=== PATIENT | female | born 1945 | race African-American/Black ===

== ENCOUNTER 2020-05-11 12:23 | Inpatient (IN) | payer OTHER ==
[2020-05-11 14:53] LABS: Absolute Lymphocytes (CBC) 4.8 K/uL (0.7-4.9); Basophils % 1.3 % (0-1.3); MPV 7.7 fL (7.6-11.3); RBC Red Blood Cell Count 2.91 M/uL (3.86-4.86)
[2020-05-11 15:13] LABS: Platelet Estimate ADEQ
[2020-05-11 15:14] LABS: Anisocytosis 1+; Basophilic Stippling 1+; Blood Morphology Comment NOTED (NOT SEEN); Hypochromasia 1+; Rouleau 2
[2020-05-11 15:42] LABS: ALT/SGPT 33 U/L (12-78); AST/SGOT 58 U/L (15-37); Albumin 2.3 g/dL (3.4-5.0); Alkaline Phosphatase 55 U/L (45-117); BUN Blood Urea Nitrogen 55 mg/dL (7-18); Bicarbonate 25 mmol/L (21-32); Bilirubin Direct < 0.1 mg/dL (0-0.2); Bilirubin Total 0.2 mg/dL (0.2-1.0); Glucose Level 92 mg/dL (74-106); Lipase 196 U/L (73-393); Potassium 4.3 mmol/L (3.5-5.1); Protein, Total 17.2 g/dL (6.4-8.2); Sodium Level 132 mmol/L (136-145)
--- NOTE | 2020-05-11 16:09 | ER ---
Nurse's Notes [facility] [place] Name: Liat Velazquez Age: 74 yrs Sex: Female : 1945 Arrival Date: 05/11/2020 Time: 12:24 Bed 26 Private MD: Diagnosis: Acute renal failure Presentation: 05/11 13:14 Chief complaint: Patient states: Sent by Dr. Rice for the CT of abdomen. Reports loss ca1 of appetite since Saturday. Loss of taste since Saturday. Denies abdominal pain, nausea, vomiting and diarrhea. Denies fever. Reports normal BM. Denies constipation. Coronavirus screen: Client denies travel out of the [place] in the last 14 days. fatigue, loss of taste or smell, loss of appetite Client presents with at least one sign or symptom that may indicate coronavirus-19. Standard/surgical mask placed on the client. Provider contacted for isolation considerations. Ebola Screen: Patient negative for fever greater than or equal to 101.5 degrees Fahrenheit, and additional compatible Ebola Virus Disease symptoms Patient denies exposure to infectious person. Patient denies travel to an Ebola-affected area in the 21 days before illness onset. No symptoms or risks identified at this time. Initial Sepsis Screen: Does the patient meet any 2 criteria? No. Patient's initial sepsis screen is negative. Does the patient have a suspected source of infection? No. Patient's initial sepsis screen is negative. Risk Assessment: Do you want to hurt yourself or someone else? Patient reports no desire to harm self or others. Onset of symptoms was May 11, 2020. 13:14 Method Of Arrival: Wheelchair ca1 13:14 Acuity: REY 3 ca1 Historical: - Allergies: 13:19 No Known Allergies; ca1 - Home Meds: 13:19 Multiple Vitamins Oral [Active]; ca1 - PMHx: 13:19 None; ca1 - PSHx: 13:19 Knee surgery; ca1 - Immunization history:: Adult Immunizations up to date. - Social history:: Smoking status: Patient denies any tobacco usage or history of. Screenin:35 Abuse screen: Denies threats or abuse. Denies injuries from another. Nutritional jl7 screening: No deficits noted. Tuberculosis screening: No symptoms or risk factors identified. Fall Risk IV access (20 points). Total Jeter Fall Scale indicates No Risk (0-24 pts). 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 ca1 14:35 General: Appears in no apparent distress. uncomfortable, Behavior is calm, cooperative, jl7 appropriate for age. Pain: Denies pain. Neuro: Level of Consciousness is awake, alert, obeys commands, Oriented to person, place, time, situation. Cardiovascular: Patient's skin is warm and dry. Respiratory: Airway is patent Respiratory effort is even, unlabored, Respiratory pattern is regular, symmetrical. GI: Reports anorexia, Patient currently denies abdominal pain, constipation, diarrhea, epigastric pain, nausea. : No signs and/or symptoms were reported regarding the genitourinary system. Derm: Skin is pink, warm \T\ dry. 15:42 Reassessment: Awaiting lab results, Irma in lab reports critical value Creatinine of jl7 10.10, ERD notified. 16:45 Reassessment: Patient appears in no apparent distress at this time. No changes from jl7 previously documented assessment. Patient and/or family updated on plan of care and expected duration. Pain level reassessed. Patient is alert, oriented x 3, equal unlabored respirations, skin warm/dry/pink. Vital Signs: 13:14 BP 156 / 87; Pulse 97; Resp 15 S; Temp 97.7(TE); Pulse Ox 100% on R/A; Weight 68.04 kg ca1 (R); Height 5 ft. 2 in. (157.48 cm) (R); 14:35 BP 176 / 98; Pulse 90; Resp 19; Pulse Ox 100% ; Pain 0/10; jl7 16:05 BP 179 / 100; Pulse 90; Resp 17; Pulse Ox 99% ; jl7 17:08 BP 188 / 98; Pulse 95; Resp 17; Pulse Ox 98% ; Pain 0/10; jl7 13:14 Body Mass Index 27.44 (68.04 kg, 157.48 cm) ca1 ED Course: 12:24 Patient arrived in ED. ds1 13:19 Triage completed. ca1 13:19 Arm band placed on right wrist. ca1 14:06 Israel Kenny MD is Attending Physician. kdr 14:13 Angela Prado RN is Primary Nurse. jl7 14:35 Patient has correct armband on for positive identification. Placed in gown. Bed in low jl7 position. Call light in reach. Side rails up X 1. Pulse ox on. NIBP on. 14:35 Initial lab(s) drawn, by me, sent to lab. Inserted saline lock: 20 gauge in right jl7 antecubital area, using aseptic technique. Blood collected. 15:18 Lipase Sent. jl7 15:18 Hepatic Function Sent. jl7 15:18 CBC with Diff Sent. jl7 15:18 Basic Metabolic Panel Sent. jl7 15:38 Lipase Sent. jl7 15:39 Basic Metabolic Panel Sent. jl7 15:39 Liver (Hepatic) Function Sent. jl7 16:09 Prince Gilbert MD is Hospitalizing Provider. kdr 16:45 No provider procedures requiring assistance completed. Patient admitted, IV remains in jl7 place. intact, No redness/swelling at site. 17:11 COVID-19 swab sent to lab. jl7 Administered Medications: No medications were administered Outcome: 16:09 Decision to Hospitalize by Provider. kdr 16:45 Discharged to home ambulatory. jl7 16:45 Condition: stable 16:45 Discharge instructions given to patient, family, Instructed on the need for admit, Demonstrated understanding of instructions. 17:32 Patient left the ED. Signatures: Israel Kenny MD MD [facility] Bernard, Enedina ds1 Clarissa De Los Santos RN RN ss Angela Prado RN RN jl7 Liz Murray RN RN ca1
--- NOTE | 2020-05-11 16:10 | EDPHYS ---
Physician Documentation [facility] Name: Liat Velazquez Age: 74 yrs Sex: Female : 1945 Arrival Date: 05/11/2020 Time: 12:24 Bed 26 Private MD: ED Physician Israel Kenny HPI: 05/12 07:29 This 74 yrs old Black Female presents to ER via Wheelchair with complaints of Sent By kdr Dr Rice. 07:29 The patient was sent to the ED by Dr. Rice since the patient had not been feeling kdr well. This included loss of appetite, and loss of sense of smell. The patient has no focal c/o except for that she is currently hungry.. Onset: The symptoms/episode began/occurred Last Saturday. Severity of symptoms: At their worst the symptoms were very mild mild in the emergency department the symptoms are unchanged. The patient has not experienced similar symptoms in the past. The patient has been recently seen by a physician: May be on Bactrim for UTI. Historical: - Allergies: 05/11 13:19 No Known Allergies; ca1 - Home Meds: 13:19 Multiple Vitamins Oral [Active]; ca1 - PMHx: 13:19 None; ca1 - PSHx: 13:19 Knee surgery; ca1 - Immunization history:: Adult Immunizations up to date. - Social history:: Smoking status: Patient denies any tobacco usage or history of. ROS: 05/12 07:29 Constitutional: Negative for fever, chills, and weight loss, Eyes: Negative for injury, kdr pain, redness, and discharge, ENT: Negative for injury, pain, and discharge, Neck: Negative for injury, pain, and swelling, Cardiovascular: Negative for chest pain, palpitations, and edema, Respiratory: Negative for shortness of breath, cough, wheezing, and pleuritic chest pain, Back: Negative for injury and pain, : Negative for injury, bleeding, discharge, and swelling, MS/Extremity: Negative for injury and deformity, Skin: Negative for injury, rash, and discoloration, Neuro: Negative for headache, weakness, numbness, tingling, and seizure activity. Psych: Negative for depression, anxiety, suicide ideation, homicidal ideation, and hallucinations, Allergy/Immunology: Negative for hives, rash, and allergies, Endocrine: Negative for neck swelling, polydipsia, polyuria, polyphagia, and marked weight changes, Hematologic/Lymphatic: Negative for swollen nodes, abnormal bleeding, and unusual bruising. Abdomen/GI: Positive for Change in appeitite, Negative for Exam: 07:29 Constitutional: This is a well developed, well nourished patient who is awake, alert, kdr and in no acute distress. Head/Face: Normocephalic, atraumatic. Eyes: Pupils equal round and reactive to light, extra-ocular motions intact. Lids and lashes normal. Conjunctiva and sclera are non-icteric and not injected. Cornea within normal limits. Periorbital areas with no swelling, redness, or edema. Neck: Trachea midline, no thyromegaly or masses palpated, and no cervical lymphadenopathy. Supple, full range of motion without nuchal rigidity, or vertebral point tenderness. No Meningismus. Chest/axilla: Normal chest wall appearance and motion. Nontender with no deformity. No lesions are appreciated. Cardiovascular: Regular rate and rhythm with a normal S1 and S2. No gallops, murmurs, or rubs. Normal PMI, no JVD. No pulse deficits. Respiratory: Lungs have equal breath sounds bilaterally, clear to auscultation and percussion. No rales, rhonchi or wheezes noted. No increased work of breathing, no retractions or nasal flaring. Abdomen/GI: Soft, non-tender, with normal bowel sounds. No distension or tympany. No guarding or rebound. No evidence of tenderness throughout. Back: No spinal tenderness. No costovertebral tenderness. Full range of motion. Skin: Warm, dry with normal turgor. Normal color with no rashes, no lesions, and no evidence of cellulitis. MS/ Extremity: Pulses equal, no cyanosis. Neurovascular intact. Full, normal range of motion. Neuro: Awake and alert, GCS 15, oriented to person, place, time, and situation. Cranial nerves II-XII grossly intact. Motor strength 5/5 in all extremities. Sensory grossly intact. Cerebellar exam normal. Normal gait. Psych: Awake, alert, with orientation to person, place and time. Behavior, mood, and affect are within normal limits. Vital Signs: 05/11 13:14 BP 156 / 87; Pulse 97; Resp 15 S; Temp 97.7(TE); Pulse Ox 100% on R/A; Weight 68.04 kg ca1 (R); Height 5 ft. 2 in. (157.48 cm) (R); 14:35 BP 176 / 98; Pulse 90; Resp 19; Pulse Ox 100% ; Pain 0/10; jl7 16:05 BP 179 / 100; Pulse 90; Resp 17; Pulse Ox 99% ; jl7 17:08 BP 188 / 98; Pulse 95; Resp 17; Pulse Ox 98% ; Pain 0/10; jl7 13:14 Body Mass Index 27.44 (68.04 kg, 157.48 cm) ca1 MDM: 16:09 Patient medically screened. kdr 05/12 07:29 Data reviewed: vital signs, nurses notes, lab test result(s), radiologic studies. kdr Counseling: I had a detailed discussion with the patient and/or guardian regarding: the historical points, exam findings, and any diagnostic results supporting the discharge/admit diagnosis, lab results, radiology results, the need for further work-up and treatment in the hospital. 05/11 14:07 Order name: Basic Metabolic Panel kdr 05/11 14:07 Order name: CBC with Diff kdr 05/11 14:07 Order name: Hepatic Function kdr 05/11 14:07 Order name: Lipase kdr 05/11 14:38 Order name: Basic Metabolic Panel; Complete Time: 15:53 EDMS 05/11 14:38 Order name: Liver (Hepatic) Function; Complete Time: 15:53 EDMS 05/11 14:07 Order name: IV Saline Lock; Complete Time: 14:34 kdr 05/11 14:07 Order name: Labs collected and sent; Complete Time: 14:34 kdr 05/11 14:38 Order name: Lipase; Complete Time: 15:53 EDMS 05/11 14:38 Order name: CBC with Automated Diff; Complete Time: 15:53 EDMS 05/11 14:57 Order name: Manual Differential; Complete Time: 15:53 EDMS 05/11 16:08 Order name: COVID-19 kdr 05/11 16:38 Order name: CT Stone Protocol la1 Administered Medications: No medications were administered Disposition: 05/11/20 16:09 Hospitalization ordered by Prince Vladimir for Inpatient Admission. Preliminary diagnosis is Acute renal failure. - Bed requested for Telemetry/MedSurg (Inpatient). - Status is Inpatient Admission. ss - Condition is Fair. - Problem is new. - Symptoms are unchanged. Signatures: Dispatcher [employer] EDPA Charleen Benavides, APOORVA RN kl Israel Kenny MD MD kdr Clarissa De Los Santos RN RN ss Acob, APOORVA Hill RN ca1 Corrections: (The following items were deleted from the chart) 05/11 15:15 14:48 Abdomen Pelvis W Con+CT.RAD.BRZ ordered. [facility] EDPA 16:55 16:09 Hospitalization Ordered by Prince Vladimir RODRIGUEZ for Inpatient Admission. Preliminary diagnosis is Acute renal failure. Bed requested for Telemetry/MedSurg (Inpatient). Status is Inpatient Admission. Condition is Fair. Problem is new. Symptoms are unchanged. kdr 17:32 16:55 05/11/2020 16:09 Hospitalization Ordered by Prince Vladimir RODRIGUEZ for Inpatient ss Admission. Preliminary diagnosis is Acute renal failure. Bed requested for Telemetry/MedSurg (Inpatient). Status is Inpatient Admission. Condition is Fair. Problem is new. Symptoms are unchanged. kl
--- NOTE | 2020-05-11 17:16 | P.HP ---
Certification for Inpatient Patient admitted to: Inpatient With expected LOS: >2 Midnights Patient will require the following post-hospital care: None Practitioner: I am a practitioner with admitting privileges, knowledge of patient current condition, hospital course, and medical plan of care. Services: Services provided to patient in accordance with Admission requirements found in Title 42 Section 412.3 of the Code of Federal Regulations Patient History Date of Service: 05/11/20 Primary Care Provider: Krystal Reason for admission: Acute renal failure History of Present Illness: 74-year-old female with no significant past medical history presents emergency department for decreased appetite, loss of taste and smell. Patient reports that she has not been feeling well recently. Patient also reports that approximately 2 weeks ago she is prescribed antibiotic for urinary tract infection, which she follow back up with the provider the prescribed as an biotic they informed her that this was not the correct antibiotic and prescribed her a 2nd antibiotic. Patient reports that at least 1 of the antibiotics was Bactrim. She is unsure of what the 2nd one was. Patient was evaluated in the emergency department and found to be in acute renal failure with a creatinine of 10. Patient has never had any underlying chronic renal disease in the past. Other renal function from previous years were all within normal limits. ED provider wishes to admit patient for further evaluation and management. When I saw the patient in the emergency department she is awake, alert, oriented x3. Patient in no distress, patient does not appear to be volume overloaded and is still urinating. Allergies unknown antibiotic Allergy (Uncoded 10/08/17 15:19) Unknown Home Medications: Aspirin 325 mg PO BID #60 tablet 08/05/17 Enoxaparin Sodium [Lovenox 30 MG INJ*] 30 mg SQ DAILY #14 syr 09/27/17 Mupirocin Oint [Bactroban 2% Ointment*] 1 appl TOP BID #1 tube 09/27/17 Vancomycin HCl in Dextrose 5 % [Vancomycin 1.25 Gram/250Ml-D5w] 1.25 gm IV Q24H #14 plast..bag 09/27/17 - Past Medical/Surgical History Diabetic: No Past Medical History: Reviewed- Non-Contributory -: sx on left broken knee cap -: Rt ankle sx Psychosocial/ Personal History: Patient lives at home with her family. - Family History Mother -: Diabetes Father -: Hypertension, GI disease, Cancer - Social History Smoking Status: Never smoker Alcohol use: No CD- Drugs: No Caffeine use: Yes Place of Residence: Home Review of Systems 10-point ROS is otherwise unremarkable General: Malaise, Other (Loss of appetite, loss of sense of smell) Physical Examination - Physical Exam General: Alert, In no apparent distress, Oriented x3 HEENT: Atraumatic, PERRLA, Mucous membr. moist/pink, EOMI, Sclerae nonicteric Neck: Supple, 2+ carotid pulse no bruit, No LAD, Without JVD or thyroid abnormality Respiratory: Clear to auscultation bilaterally, Normal air movement Cardiovascular: Regular rate/rhythm, Normal S1 S2 Gastrointestinal: Normal bowel sounds, No tenderness Musculoskeletal: No tenderness Integumentary: No rashes Neurological: Normal gait, Normal speech, Normal strength at 5/5 x4 extr, Normal tone, Normal affect Lymphatics: No axilla or inguinal lymphadenopathy - Studies Laboratory Data (last 24 hrs) 05/11/20 14:31: WBC 12.6 H, Hgb 8.0 L, Hct 24.0 L, Plt Count 197 05/11/20 14:31: Sodium 132 L, Potassium 4.3, BUN 55 H, Creatinine 10.10 H*, Glucose 92, Total Bilirubin 0.2, AST 58 H, ALT 33, Alkaline Phosphatase 55, Lipase 196 Assessment and Plan - Plan Assessment Acute renal failure suspect secondary to antibiotic use Decreased appetite, loss of sense of taste and smell Plan Acute renal failure suspect secondary to antibiotic use: Continue gentle hydration at this time. Nephrology has been consulted. I have ordered a CK levels to rule out rhabdomyolysis and renal ultrasound. Appreciate further input from nephrology. Will refrain from giving any NSAIDs or contrast studies. Decreased appetite, loss of sense of taste and smell: Will test patient for COVID. Renal diet in place. Discharge Plan: Home Plan to discharge in: 48 Hours - Advance Directives Does patient have a Living Will: Yes Does patient have a Durable POA for Healthcare: No - Code Status/Comfort Care Code Status Assessed: Yes (Patient is full code) Critical Care: No Time Spent Managing Pts Care (In Minutes): 55
[2020-05-11] MEDS ORDERED: ACETAMINOPHEN 500 MG TAB PO PRN (17:32)
[2020-05-11] MEDS ORDERED: ONDANSETRON 4 MG/2 ML VIAL IV PRN (17:32)
--- NOTE | 2020-05-11 18:12 | RAD REPORT ---
EXAM DESCRIPTION: CT - Stone Protocol - 05/11/2020 5:27 pm CLINICAL HISTORY: ARF, abdominal pain, loss of appetite COMPARISON: No comparisons TECHNIQUE: Axial [address] imaging of the abdomen and pelvis was performed without IV contrast. No IV contrast was given because of allergy, abnormal renal function, patient refusal or physician re quest. No oral contrast administered. All CT scans are performed using dose optimization technique as appropriate and may include automated exposure control or mA/KV adjustment according to patient size. FINDINGS: No suspicious findings in the lung bases. The liver, spleen and pancreas show no suspicious findings on non-contrast imaging. Gallbladder and b iliary tree are also without suspicious finding. No hydronephrosis identified. Nonobstructing calculi present, lower pole right and upper pole left. N o obstructing calculus identified. Both kidneys appear edematous. Discrete mass is not identified. No significant adrenal finding. Isodense renal masses and pyelonephritis cannot be excluded in the abse nce of IV contrast. No gross abnormality of the partially contracted urinary bladder. No uterine abno rmality. Numerous phleboliths are present. Small atrophic right ovary is seen. In the superolateral a dnexae on the left there is a 2.9 centimeter oval mass. Calcifications are seen along the periphery. This mass appears to be discrete from the adjacent external iliac artery and vein. Mass is relatively low density. This may be a chronic and/or paraovarian cyst. No remote imaging available for comparis on. No gastric dilatation or gastric wall thickening. Large and small bowel show no acute findings. The a ppendix is unremarkable. Diverticulosis is minimal. No active GI process seen. No free air, free fluid or inflammatory stranding. No mass or bulky lymphadenopathy. Patient has a small fat only umbilical hernia not seen as significant. Advanced bony degenerative changes are present. Patient has a pronounced left convex scoliotic curvat ure. There is left lateral subluxation of the L3 body. Left-sided foramen stenoses are present in the lower lumbar spine. Pathologic bone process is not identified. IMPRESSION: Both kidneys appear edematous. Isodense masses and pyelonephritis are not excluded. No h ydronephrosis or obstructing calculi identified. No acute GI process identifiable. A 2.9 centimeter superolateral left adnexal masses present suspected to be ovarian in origin. This co uld be chronic ovarian or paraovarian cyst. The presumed left ovarian origin mass may be too far superior and lateral for sonographic evaluation. Long-term significance is doubtful. This can be monitored with follow-up CT imaging in 6 months. Full assessment is limited is the absence of IV contrast.
[2020-05-11] MEDS: NA CHLORIDE 0.9% 1,000 ML IV SCH (18:43)
[2020-05-11 20:00] VITALS: BMI 25.9
--- NOTE | 2020-05-11 20:05 | RAD REPORT ---
EXAM DESCRIPTION: US - Renal Ultrasound-Complete - 05/11/2020 7:43 pm CLINICAL HISTORY: ARF COMPARISON: Stone Protocol dated 05/11/2020 FINDINGS: The right kidney measures 10.4 x 5.0 x 4.4 cm. The left kidney measures 11.1 x 5.7 x 4.1 cm. Renal cortical thickness and echogenicity are normal. No hydronephrosis or suspicious renal mass. No perinephric abnormality seen. No bladder wall thickening or mass. No intraluminal stone or mass. IMPRESSION: No hydronephrosis or suspicious renal mass. No other significant findings.
[2020-05-11] MEDS: HEPARIN 5000 UNIT/ML 1 ML VIAL SQ SCH (21:12)
[2020-05-12 04:32] LABS: Absolute Lymphocytes (CBC) 4.2 K/uL (0.7-4.9); Basophils % 0.7 % (0-1.3); Hematocrit 21.2 % (36.0-45.0); MPV 7.5 fL (7.6-11.3); RBC Red Blood Cell Count 2.57 M/uL (3.86-4.86)
[2020-05-12 04:34] LABS: Lymphocytes % 39.3 % (15.3-44.8)
[2020-05-12 04:42] LABS: Magnesium 2.1 mg/dL (1.8-2.4); Phosphorus 6.2 mg/dL (2.5-4.9); Potassium 4.5 mmol/L (3.5-5.1); Thyroid Stimulating Hormone 1.5 uIU/mL (0.360-3.740)
[2020-05-12 05:41] LABS: Urine Appearance CLOUDY; Urine Bilirubin NEGATIVE (NEG); Urine Blood 3+ (NEG); Urine Color YELLOW; Urine Glucose NEGATIVE (NEG); Urine Protein 2+ (NEG); Urine Urobilinogen 0.2 mg/dL (0.2-1.0); Urine pH 6.5 (5.0-7.0)
[2020-05-12 06:09] LABS: Urine Bacteria >50 /HPF (<20); Urine Culture Reflex Order REFLEXED
[2020-05-12] MEDS: NA CHLORIDE 0.9% 1,000 ML IV SCH ×2 (06:33→21:00)
[2020-05-12] MEDS: CEFTRIAXONE/SWI 1gm 1 GM/10 ML SYR IV SCH (07:46)
[2020-05-12] MEDS ORDERED: HYDRALAZINE HCL 20 MG/ML VIAL IV ONE (07:51)
[2020-05-12] MEDS: HEPARIN 5000 UNIT/ML 1 ML VIAL SQ SCH (07:53)
--- NOTE | 2020-05-12 08:57 | P.PN ---
Subjective Date of Service: 05/12/20 Primary Care Provider: Krystal Chief Complaint: Acute renal failure Subjective: No new changes Review of Systems Unremarkable Physical Examination - Vital Signs Temperature: 97 F Blood Pressure: 174/100 Pulse: 101 Respirations: 18 Pulse Ox (%): 96 - Physical Exam General: Alert, In no apparent distress HEENT: Atraumatic, PERRLA, EOMI Neck: Supple, JVD not distended Respiratory: Clear to auscultation bilaterally, Normal air movement Cardiovascular: Regular rate/rhythm, Normal S1 S2 Gastrointestinal: Normal bowel sounds, No tenderness Musculoskeletal: No tenderness Integumentary: No rashes Neurological: Normal speech, Normal tone, Normal affect Lymphatics: No axilla or inguinal lymphadenopathy - Studies Laboratory Data (last 24 hrs) 05/11/20 14:31: Uric Acid 11.1 H 05/11/20 14:31: WBC 12.6 H, Hgb 8.0 L, Hct 24.0 L, Plt Count 197 05/11/20 14:31: Sodium 132 L, Potassium 4.3, BUN 55 H, Creatinine 10.10 H*, Glucose 92, Total Bilirubin 0.2, AST 58 H, ALT 33, Alkaline Phosphatase 55, Lipase 196 05/11/20 14:07: WBC Cancelled, Hgb Cancelled, Hct Cancelled, Plt Count Cancelled 05/11/20 14:07: Sodium Cancelled, Potassium Cancelled, BUN Cancelled, Creatinine Cancelled, Glucose Cancelled, Total Bilirubin Cancelled, AST Cancelled, ALT Cancelled, Alkaline Phosphatase Cancelled, Lipase Cancelled Assessment & Plan Discharge Plan: Home Plan to discharge in: 72 Hours - Code Status/Comfort Care Code Status Assessed: Yes (Patient is full code) Physician Review Additional Text: Assessment Acute renal failure suspect secondary to antibiotic use Decreased appetite, loss of sense of taste and smell Plan Acute renal failure suspect secondary to antibiotic use: Continue gentle hydration at this time. Nephrology has been consulted. Renal function has not improved from yesterday. Continue to monitor closely. Appreciate further input from nephrology. P.r.n. blood pressure medications in place. Renal ultrasound, CK, uric acid, urine eosinophils have been ordered for nephrology. Decreased appetite, loss of sense of taste and smell: Will test patient for COVID. Renal diet in place. Critical Care: No Time Spent Managing Pts Care (In Minutes): 55
[2020-05-12] MEDS ORDERED: HYDRALAZINE HCL 20 MG/ML VIAL IV PRN (15:06)
--- NOTE | 2020-05-12 18:52 | CON ---
Date of Consultation: 05/12/2020 Additional Consulting Physician: Nurse practitioner, Mr. Patrice Martinez. Reason For Consultation: Elevated BUN and creatinine. History Of Present Illness: This is a pleasant 74-year-old female with negative past medical history, except recurrent UTI. According to her, the patient had last episode almost 3 weeks ago. At that time was placed on antibiotic, treated, did not improve. For that reason, was placed for another round of antibiotic of Bactrim. The patient still did not improve, started feeling weak, fatigued. For that reason, reported to the hospital. Upon arrival to the hospital, the patient found to have elevation in BUN and creatinine. Creatinine was 10.1 with GFR of 5 without any hyperkalemia, no acidosis. For that reason the patient was admitted and we have been consulted. The patient denied taking any nonsteroidal. According to her she was using only Tylenol. The patient denied taking any NSAID . No recent hospitalization. No IV contrast. The patient admits that 1 month ago had lab with her PCP, Ms. Patience Gibbs and at that time according to her, the only mention is the UTI. There is no kidney disease according to the patient. The patient denied any rash, any joint problem. Past Medical History: Recurrent UTI. Allergies: NEGATIVE. Home Medication: Negative except p.r.n. Tylenol. Current Medications In The Hospital: Include: 1. Ceftriaxone. 2. Hydralazine. 3. Zofran. 4. IV fluid. Social History: Lives with the family. Denied smoking. Denied drinking. Denied drug abuse. Past Surgical History: Includes: 1. Broken kneecap. 2. Ankle surgery. Family History: Positive for diabetes. Review of Systems: Head and Neck: No red eye. No ear pain. GI: No nausea. No vomiting. : Has dysuria. 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 Respiratory: No shortness of breath. Cardiovascular: No chest pain. Endocrine: No polydipsia. Skin: No rash. Neuro: No neuropathy. No weakness. Musculoskeletal: Generalized fatigue. Physical Examination: General: When I saw the patient, the patient is lying in bed, comfortable, not on any distress. Vital signs: Blood pressure 139/73, pulse of 93, afebrile. The patient still has good urine output of 300. Chest: Clear to auscultation. Heart: S1, S2. Regular. Abdomen: Soft, nontender. Extremities: No edema. Neurological: Alert, oriented x3. No focal. No tremor. Cardiovascular: No carotid bruit. No renal bruit. Laboratory Data: Sodium 133, potassium 4.5, bicarb 22, BUN 57, creatinine 10.7, GFR of 4, calcium of 8, phosphorus 6.2, magnesium 2.1. PTH is still pending. Urinalysis; PC ratio is 5 g, RBC of 10, WBC of 10.6, H and H 7.2/21.2, platelet 169. Renal ultrasound; normal size kidney, no hydronephrosis 10.4/11.1. Assessment And Plan: 1. Acute kidney injury, unknown etiology. Nephrotic range of proteinuria with normal size kidney with hematuria. The patient mostly had possible of nephritis given the possibility of focal segmental glomerulosclerosis. Given that the patient does not have any clear insult, no previous history, I am going to go ahead and proceed with the kidney biopsy. I had long discussion with the patient and her family over the phone regarding the need to do kidney biopsy. The patient and family want to discuss it and then make decision. We will go ahead and arrange if family agreed for the biopsy. 2. The patient is going to need to initiate renal replacement therapy. I had a long discussion with the patient and family regarding that. They still not decided. Again, it is needed, but it is not urgently needed, so the priority is to take care of the kidney biopsy and we will follow up. I directed to hold any heparin. The patient is not on any nonsteroidal, no aspirin. Her BUN is not elevated. The patient is not oliguric. I do not see the need to give DDAVP before the biopsy. 3. Hypertension, controlled, optimal. We will monitor the patient. 4. Nephritis, doubt to be acute interstitial nephritis given the nephrotic range of proteinuria. Anyhow, we will send for urine eosinophil. 5. With the presence of anemia and renal failure to rule out any intravascular hemolysis. I am going to go ahead and send for LDH and haptoglobin. 6. Anemia with the presence of acute kidney injury. Hemolysis needs to be ruled out. Iron deficiency anemia needed to be ruled out. We will send for haptoglubin , SPEP and LDH and iron study. We will follow up. 7. Recurrent urinary tract infection, obstructive uropathy has been ruled out. We will follow up culture. Keep holding Bactrim for the time being. Time spent 65 minutes. TOMASZ Voice ID: [id number] Report ID: [id number] MTDQuirino
[2020-05-12] MEDS: METOPROLOL TAR 25 MG TAB PO SCH (22:41)
[2020-05-13] MEDS: HYDRALAZINE HCL 20 MG/ML VIAL IV PRN ×2 (01:46→13:32)
[2020-05-13 05:15] LABS: Protime INR 1.15
[2020-05-13 05:51] LABS: BUN Blood Urea Nitrogen 59 mg/dL (7-18); Bicarbonate 19 mmol/L (21-32); Creatine Phosphokinase 62 U/L (26-192); Ferritin 863.5 ng/mL (8-388); Folic Acid, (Folate) > 20.0 ng/mL (3.1-17.5); Glucose Level 97 mg/dL (74-106); Magnesium 2.2 mg/dL (1.8-2.4); Phosphorus 6.2 mg/dL (2.5-4.9); Potassium 4.1 mmol/L (3.5-5.1); Sodium Level 135 mmol/L (136-145); Transferrin 121 mg/dL (200-360)
[2020-05-13 06:34] LABS: Absolute Lymphocytes (CBC) 3.7 K/uL (0.7-4.9); Basophils % 0.7 % (0-1.3); Hematocrit 21.8 % (36.0-45.0); Lymphocytes % 39.2 % (15.3-44.8); MPV 7.6 fL (7.6-11.3); RBC Red Blood Cell Count 2.63 M/uL (3.86-4.86)
[2020-05-13] MEDS: METOPROLOL TAR 25 MG TAB PO SCH ×2 (08:07→18:00)
[2020-05-13] MEDS: CEFTRIAXONE/SWI 1gm 1 GM/10 ML SYR IV SCH (08:07)
[2020-05-13 08:16] LABS: Rheumatoid Factor NEG (NEG)
[2020-05-13] MEDS ORDERED: CEFAZOLIN/SWI 1gm 1 GM/10 ML SYR IV SCH (08:45)
[2020-05-13] MEDS: NA CHLORIDE 0.9% 1,000 ML IV SCH (09:32)
[2020-05-13] MEDS ORDERED: MIDAZOLAM HCL 2 MG/2 ML INJ ONE (09:38)
[2020-05-13] MEDS ORDERED: FENTANYL CITR 100 MCG/2 ML ONE ×2 (09:38→10:54)
[2020-05-13] MEDS ORDERED: FLUMAZENIL 0.1 MG/ML (5 mL VIAL) IV ONE (09:39)
[2020-05-13] MEDS ORDERED: NA CHLORIDE 0.9% 500 ML ONE (09:39)
[2020-05-13] MEDS ORDERED: LIDOCAINE 1% MPF 30 ML VIAL ONE (10:40)
[2020-05-13] MEDS ORDERED: HEPARIN 5000 UNIT/ML 1 ML VIAL ONE (10:40)
[2020-05-13] MEDS ORDERED: NA CHLORIDE 0.9% 100 ML IV ONE (10:41)
[2020-05-13] MEDS ORDERED: propofoL 200 MG/20 ML VIAL IV ONE (10:54)
[2020-05-13] MEDS ORDERED: LIDOCAINE 1% MPF 5 ML VIAL ONE (10:54)
--- NOTE | 2020-05-13 11:27 | P.PN ---
Subjective Date of Service: 05/13/20 Primary Care Provider: Krystal Chief Complaint: Acute renal failure Subjective: No new changes, No C/O voiced Review of Systems Unremarkable Physical Examination - Vital Signs Temperature: 97.3 F Blood Pressure: 165/104 Pulse: 95 Respirations: 20 Pulse Ox (%): 96 - Physical Exam General: Alert, In no apparent distress HEENT: Atraumatic, PERRLA, EOMI Neck: Supple, JVD not distended Respiratory: Clear to auscultation bilaterally, Normal air movement Cardiovascular: Regular rate/rhythm, Normal S1 S2 Gastrointestinal: Normal bowel sounds, No tenderness Musculoskeletal: No tenderness Integumentary: No rashes Neurological: Normal speech, Normal tone, Normal affect Lymphatics: No axilla or inguinal lymphadenopathy - Studies Medications List Reviewed: Yes Assessment & Plan Discharge Plan: Home Plan to discharge in: 72 Hours - Code Status/Comfort Care Code Status Assessed: Yes (Patient is full code) Physician Review Additional Text: Assessment Acute renal failure suspect secondary to antibiotic use Decreased appetite, loss of sense of taste and smell Plan Acute renal failure suspect secondary to antibiotic use: Patient's renal functi on continues to decline, creatinine 11. Patient was seen by nephrology is determined patient is having nephrotic syndrome due to increase protein in the urine. Full serology has been sent, patient had renal biopsy this morning. Patient will have a tunneled dialysis catheter placed this afternoon with General Surgery. Plan we for dialysis after catheters placed. Patient remains hypertensive, metoprolol has been ordered twice daily, p.r.n. hydralazine in place. Appreciate further input from nephrology. Decreased appetite, loss of sense of taste and smell: Patient negative for Macias virus. Critical Care: No Time Spent Managing Pts Care (In Minutes): 55
[2020-05-13] MEDS ORDERED: CEFAZOLIN/SWI 1gm 1 GM/10 ML SYR ONE (11:28)
--- NOTE | 2020-05-13 11:56 | PREOPCON ---
Date of Consultation: 05/13/2020 Reason: The patient needs dialysis. History Of Present Illness: The patient is a 74-year-old female with a history of recurrent UTI who came in to the hospital with fatigue and weakness. She was found to be in acute renal failure. The patient needs dialysis and I was consulted. No fever or chills. She did have some loss of taste and smell. However, her COVID test was negative. Past Medical History: Significant for recurrent UTI. Past Surgical History: Knee surgery and ankle surgery. Allergies: NONE. Social History: The patient does not smoke or drink. Family History: Significant for diabetes. Physical Examination: Vital Signs: Stable. Afebrile. General: Awake, alert, and oriented x3. Head and Neck: No masses. Chest: Clear. Heart: S1, S2. Abdomen: Soft. Extremities: Neurovascularly intact. Neurologic: Nonfocal. Laboratory Data: White count is 9.4, H and H is 7.5 and 21.8 and platelets are 170. INR is 1.15. B UN and creatinine have gone up since admission 59 and 11.2. She is slightly acidotic. Her CO2 is 19 , potassium is 4.1. Assessment: A 74-year-old female with acute renal failure requiring dialysis. Plan: N.p.o., IV antibiotics and to the OR for Tesio catheter placement. The patient understands ri sks, benefits, and alternatives and agrees to procedure. /MODL Voice ID: [id number] Report ID: [id number]
--- NOTE | 2020-05-13 12:01 | RAD REPORT ---
EXAM DESCRIPTION: US - Biopsy Renal - 05/13/2020 10:59 am CLINICAL HISTORY: ARF Renal failure COMPARISON: No comparisons FINDINGS: Preoperative diagnosis: Renal failure. Post operative diagnosis: Same. Conscious Sedation: 45 minutes of IV conscious sedation utilizing fentanyl and midazolam. Fluoroscopy time: None Contrast used: None Estimated blood loss: Minimal Specimens:2 x 2 cm 18 gauge core specimens The left posterior flank was prepped and draped in the usual sterile fashion. 1% lidocaine was infilt rated into the subcutaneous tissues for local anesthesia. Real time ultrasound scanning of the left k idney demonstrated suitable sonographic window. Under ultrasound guidance, using a 18-gauge, 10 cm lo ng, 2 cm throw core biopsy gun, 2 specimens were obtained of the inferior pole left kidney and sent t o pathology for evaluation. There were no complications. IMPRESSION: Successful ultrasound-guided nonfocal left renal biopsy.
[2020-05-13] MEDS ORDERED: NS 0.9% VIAL 10 ML ONE (12:06)
--- NOTE | 2020-05-13 12:28 | P.OP ---
Motion Picture Director: Carmita MG Preoperative diagnosis: ARF Postoperative diagnosis: same Primary procedure: KACEY Waters, Fluoroscopy Anesthesia: MAC Estimated blood loss: min Specimen: none Findings: Normal Anatomy Complications: None Transferred to: Recovery Room Condition: Good
--- NOTE | 2020-05-13 12:54 | RAD REPORT ---
EXAM DESCRIPTION: RAD - Fluoroscopy <1 Hour - 05/13/2020 12:48 pm CLINICAL HISTORY: Venous catheter insertion. TESSIO CATH PLACEMENT COMPARISON: No comparisons FINDINGS: Fluoroscopic imaging is submitted from placement of a venous catheter. Details of the pro cedure not available. Fluoroscopy time: 0.2 minutes
--- NOTE | 2020-05-13 13:07 | RAD REPORT ---
EXAM DESCRIPTION: RAD - Chest Single View - 05/13/2020 12:59 pm CLINICAL HISTORY: S/P Tesio, vascular access catheter placement COMPARISON: Portable September 2017 TECHNIQUE: AP portable chest image was obtained 05/13/2020 12:59 pm . FINDINGS: Right jugular Tessio catheter placement with tip in the mid to distal SVC. There is no pne umothorax or procedure related complication. Interstitial markings are prominent, accentuated by port able shallow inspiration technique. Trachea is midline. No measurable joint effusion. IMPRESSION: Right jugular Tessio catheter placement in good position. No pneumothorax.
--- NOTE | 2020-05-13 22:29 | OP ---
Date of Procedure: 05/13/2020 Surgeon: Sharad Cheema MD Title Specialist: HARITHA Frederick. Preoperative Diagnosis: Acute renal failure. Postoperative Diagnosis: Acute renal failure. Procedure: Placement of right internal jugular Tesio catheter and interpretation of intraoperative f luoroscopy. Estimated Blood Loss: Minimal. Specimen: None. Findings: Normal anatomy. Anesthesia: MAC. Complications: None. Disposition: The patient tolerated the procedure in stable condition, taken to Recovery in good gene ral condition. Procedure In Detail: The patient was brought to the OR and placed in supine position. MAC anesthesi a begun. The patient was prepped and draped in usual sterile fashion. Lidocaine 1% infiltrated loca lly. An 18-gauge needle was used to access the right IJ vein. Guidewire was passed. Position was c onfirmed with fluoroscopy. Counterincision made. A tunneling device was used to tunnel the incision between the 2 wounds from the chest to the neck and then Seldinger technique used and vein dilated a nd tip of the catheter was placed in the SVC under fluoroscopy and catheter flushed with heparin and packed with heparin with good blood flow and then 3-0 chromic used to approximate the subcutaneous ti ssue and 3-0 nylon used to secure the tube to the chest wall. Sterile dressing was applied. The pat ient was awakened and taken to Recovery in good general condition. Chest x-ray has been ordered. /MODL Voice ID: [id number] Report ID: [id number]
--- NOTE | 2020-05-14 02:11 | PN ---
Date of Progress Note: 05/13/2020 Chief Complaint: Acute kidney injury, severe hyperazotemia. History Of Present Illness: The patient is a 74-year-old woman with a negative history of any kidney disease except that she has had a history of recurrent urinary tract infection. She was treated with Bactrim recently. She came to the hospital because of generalized weakness. Creatinine level was up to 10.1. GFR 5. The patient did not have acidosis or hyperkalemia. The patient is started on dialysis today. She underwent tunneled dialysis catheter placement and renal biopsy was done yesterday to evaluate for possible etiology of severe kidney failure. Review of Systems: Denies PND, orthopnea. Physical Examination: Lungs: Diminished breath sounds at bases. Heart: S1, S2. Abdomen: Soft, benign. Extremities: Slight edema. Laboratory Data: Hemoglobin is 7.5, WBC 9.4, platelet count is 170,000. Sodium 135, potassium 4.1, chloride 110, CO2 19, BUN 59, creatinine 11.2. Uric acid 11, calcium 7.7, phosphorus 6.2, magnesium 2.2. Impression And Plan: 1. Acute kidney injury, severe. Workup is pending to rule out nephritis and rapidly progressive glomerulonephritis. Urinalysis showed microscopic hematuria, proteinuria 2+. Protein-creatinine ratio was up to 5. The patient is undergoing dialysis for metabolic clearance and ultrafiltration. 2. Hypertension. Continue blood pressure medication. 3. Generalized weakness. Workup with primary team to rule out acute coronary syndrome. I spent total 36 min including 25 min to coordinate care plan. JOSE/PAULINO Voice ID: [id number] Report ID: [id number] ABRAHAN
[2020-05-14 05:48] LABS: Absolute Lymphocytes (CBC) 3.5 K/uL (0.7-4.9); Basophils % 0.9 % (0-1.3); RBC Red Blood Cell Count 2.41 M/uL (3.86-4.86)
[2020-05-14 06:11] LABS: Phosphorus 6.5 mg/dL (2.5-4.9); Potassium 4.2 mmol/L (3.5-5.1)
[2020-05-14] MEDS: METOPROLOL TAR 25 MG TAB PO SCH ×2 (06:11→17:20)
[2020-05-14] MEDS: CEFTRIAXONE/SWI 1gm 1 GM/10 ML SYR IV SCH (08:22)
[2020-05-14] MEDS: NEPRO SHAKE 237 ML CAN PO SCH (08:22)
--- NOTE | 2020-05-14 08:47 | P.PN ---
Subjective Date of Service: 05/14/20 Primary Care Provider: Krystal Chief Complaint: Acute renal failure Subjective: No new changes Review of Systems Unremarkable Physical Examination - Vital Signs Temperature: 98.3 F Blood Pressure: 142/84 Pulse: 92 Respirations: 18 Pulse Ox (%): 96 - Physical Exam General: Alert HEENT: Atraumatic, PERRLA, EOMI Neck: Supple, JVD not distended Respiratory: Clear to auscultation bilaterally, Normal air movement Cardiovascular: Regular rate/rhythm, Normal S1 S2 Gastrointestinal: Normal bowel sounds, No tenderness Musculoskeletal: No tenderness Integumentary: No rashes Neurological: Normal speech, Normal tone, Normal affect Lymphatics: No axilla or inguinal lymphadenopathy - Studies Medications List Reviewed: Yes Assessment & Plan Discharge Plan: Home Plan to discharge in: Greater than 2 days - Code Status/Comfort Care Code Status Assessed: Yes (Patient is full code) Physician Review Additional Text: Assessment Acute renal failure, likely end-stage renal disease-now on hemodialysis Decreased appetite, loss of sense of taste and smell Plan Acute renal failure, likely end-stage renal disease-now on hemodialysis: Patient had a renal biopsy and tell dialysi catheter placement yesterday. Patient had 1st dialysis treatment yesterday. Patient tolerated this well. Patient will need placement for dialysis chair on an outpatient basis. Working with social media manager. Patient hemoglobin low this morning 5.9, patient being transfused. Appreciate further input from nephrology. Decreased appetite, loss of sense of taste and smell: Patient negative for Macias virus. Critical Care: No Time Spent Managing Pts Care (In Minutes): 55
--- NOTE | 2020-05-14 14:39 | RAD REPORT ---
EXAM DESCRIPTION: RAD - Chest Single View - 05/14/2020 1:53 pm CLINICAL HISTORY: COPD COMPARISON: Portable May 13, 2020 TECHNIQUE: AP portable chest image was obtained 05/14/2020 1:53 pm . FINDINGS: No peripheral mass consolidation. Lung volumes are low which accentuates and already promi nent baseline interstitial pattern. Right-sided dialysis catheter is in place. Heart size is mildly e nlarged vasculature is mildly prominent. No measurable pleural effusion and no pneumothorax. No acute bony abnormality seen. No acute aortic findings suspected. IMPRESSION: Heart, vasculature and lung markings are all prominent. Pattern is not substantially dif ferent from comparison. Mild failure or volume overload is a consideration.
--- NOTE | 2020-05-14 15:44 | RAD REPORT ---
EXAM DESCRIPTION: US - Renal Ultrasound-Complete - 05/14/2020 3:21 pm CLINICAL HISTORY: kidney Bx , low h/h COMPARISON: Renal Ultrasound-Complete dated 05/11/2020; Biopsy Renal dated 05/13/2020 FINDINGS: The right kidney is normal size with normal cortical thickness and echogenicity. No hydron ephrosis or suspicious mass of the right kidney. The left kidney also normal size with normal cortical thickness. Echogenicity not outside of normal r umu. No hydronephrosis of the left kidney. No perinephric mass or hematoma identifiable at sonograph y. Bladder is mostly contracted. No gross abnormality seen. IMPRESSION: No left perinephric mass or hematoma identifiable. If the patient has continued unexplained drop in hemoglobin, CT abdomen and pelvis imaging could be p erformed to evaluate for hematoma that may be sonographically occult or may have migrated outside of the renal ultrasound [id number].
--- NOTE | 2020-05-14 17:30 | PN ---
Date of Progress Note: 05/14/2020 Subjective: The patient was admitted with acute kidney injury, unknown etiology, with nephrotic rang e of proteinuria and hematuria. The patient to undergo kidney biopsy, tolerated the biopsy. The pat ient is started on dialysis. Physical Examination: Vital Signs: Blood pressure 133/76, pulse of 86. The patient still had good urine output of 400. Chest: Clear to auscultation. Heart: S1, S2. Regular. Abdomen: Soft, nontender. Extremities: No edema. Laboratory Data: WBC 10.3, H and H 6.9/20, platelet 158. Sodium 134, potassium 4.2, bicarb 24, BUN 43, creatinine 8.8, calcium of 8, phos 6.5, iron saturation 30, ferritin of 863. Serology still pend ing. PTH of 39, folate more than 20. Current Medications: Include: 1.Ceftriaxone. 2.Hydralazine. 3.Metoprolol. Assessment And Plan: 1.Acute kidney injury, nephrotic range of proteinuria, normal size kidney. Continue dialysis. Sche duled for dialysis today. We will follow up. We will start the patient on Retacrit. 2.Given the drop in the hemoglobin and the patient had undergone biopsy, I am going to go ahead and get renal ultrasound to evaluate with chest x-ray. 3.Hypertension. We will follow up blood pressure after dialysis. 4.Nephrotic range of proteinuria with the pending workup. TOMASZ Voice ID: [id number] Report ID: [id number]
[2020-05-15] MEDS: METOPROLOL TAR 25 MG TAB PO SCH ×2 (05:24→17:20)
[2020-05-15 05:51] LABS: Phosphorus 3.7 mg/dL (2.5-4.9); Potassium 3.6 mmol/L (3.5-5.1)
[2020-05-15] MEDS ORDERED: POTASSIUM 25 MEQ EFFERV TAB PO ONE (08:00)
[2020-05-15] MEDS: NEPRO SHAKE 237 ML CAN PO SCH (08:02)
[2020-05-15] MEDS: CEFTRIAXONE/SWI 1gm 1 GM/10 ML SYR IV SCH (08:03)
--- NOTE | 2020-05-15 08:26 | P.PN ---
Subjective Date of Service: 05/15/20 Primary Care Provider: Krystal Chief Complaint: Acute renal failure Subjective: Tolerating diet, Improving Review of Systems Unremarkable Physical Examination - Vital Signs Temperature: 97.4 F Blood Pressure: 133/69 Pulse: 87 Respirations: 16 Pulse Ox (%): 97 - Physical Exam General: Alert, In no apparent distress HEENT: Atraumatic, PERRLA, EOMI Neck: Supple, JVD not distended Respiratory: Clear to auscultation bilaterally, Normal air movement Cardiovascular: Regular rate/rhythm, Normal S1 S2 Gastrointestinal: Normal bowel sounds, No tenderness Musculoskeletal: No tenderness Integumentary: No rashes Neurological: Normal speech, Normal tone, Normal affect Lymphatics: No axilla or inguinal lymphadenopathy Urinary: Dialysis catheter - Studies Medications List Reviewed: Yes Assessment & Plan Discharge Plan: Home Plan to discharge in: 24 Hours - Code Status/Comfort Care Code Status Assessed: Yes Physician Review Additional Text: Assessment Acute renal failure, likely end-stage renal disease-now on hemodialysis Decreased appetite, loss of sense of taste and smell Plan Acute renal failure, likely end-stage renal disease-now on hemodialysis: Patient had dialysis again yesterday, will require placement for outpatient dialysis chair. Creatinine improving electrolytes unremarkable. Appreciate further input from nephrology. Patient UA in ED showed 3+ leuk negative NIT, culture with mixed niya, on rocephin now, can likely DC and should not need home ABX . Decreased appetite, loss of sense of taste and smell: Patient negative for Macias virus. Critical Care: No Time Spent Managing Pts Care (In Minutes): 55
--- NOTE | 2020-05-15 17:52 | PN ---
Date of Progress Note: 05/15/2020 Subjective: Patient was admitted with acute kidney injury, unknown etiology, nephrotic range of prot einuria. The patient undergo kidney biopsy on Saturday. Patient had dialysis yesterday, managed to re move 1100. Objective: Vital Signs: Blood pressure 125/71, pulse of 96. Afebrile. The patient had voiding. Chest: Clear to auscultation. Heart: S1, S2. Systolic murmur. Abdomen: Soft, nontender. Extremities: No edema. Neurologic: The patient is sleepy. No focal. Laboratory Data: H and H are 9.3 and 27, patient received 2 units yesterday. Sodium 132, potassium 3.6, bicarb 27, BUN 23, creatinine 5.7, calcium 7.6, phosphorus 3.7, albumin 2, corrected calcium 9.2 . Serum protein electrophoresis is still pending. PTH 39. Renal ultrasound was done yesterday, neg ative for perinephric hematoma. Current Medications: Include: 1.Ceftriaxone. 2.Epogen. 3.Metoprolol 25 b.i.d. 4.Zofran. Assessment And Plan: 1.Acute kidney injury with nephrotic range of proteinuria, unknown etiology. I am going to arrange for another session of dialysis tomorrow. 2.Anemia of chronic kidney disease, status post transfusion, stable. Ultrasound was negative for pe rinephric hematoma. We will follow up H and H. If hemoglobin continues to drop at that time, we savita l proceed with CT abdomen and pelvis. 3.Hypertension, controlled, optimal. We will continue current treatment. 4.Hypokalemia. We will avoid any supplement. We will dialyze the patient on high potassium bath. 5.Nephrotic range of proteinuria with the presence of acute kidney injury. Waiting for biopsy. Fol low up serology. YANG/MODL Voice ID: [id number] Report ID: [id number]
[2020-05-16 05:08] LABS: Phosphorus 5.1 mg/dL (2.5-4.9); Potassium 3.9 mmol/L (3.5-5.1)
[2020-05-16] MEDS: METOPROLOL TAR 25 MG TAB PO SCH ×2 (05:43→17:06)
[2020-05-16] MEDS: CEFTRIAXONE/SWI 1gm 1 GM/10 ML SYR IV SCH (09:00)
[2020-05-16] MEDS: ALTEPLASE 2 MG/VIAL IV SCH ×2 (11:10→14:00)
[2020-05-16 12:57] LABS: HIV AG/AB 4TH GEN Non-reactive (Non-reactive)
[2020-05-16] MEDS: NEPRO SHAKE 237 ML CAN PO SCH (14:18)
[2020-05-16] MEDS: EPOETIN ALFA 10,000 UNIT/ML VIAL IV SCH (17:04)
--- NOTE | 2020-05-17 02:09 | PN ---
Date of Progress Note: 05/16/2020 Chief Complaint: Acute kidney injury, severe. History Of Present Illness: The patient is dialysis dependent. The patient underwent kidney biopsy on Saturday. The patient is undergoing dialysis today to obtain metabolic clearance. Review of Systems: The patient denies chest pain or palpitation. Physical Examination: Lungs: Clear to auscultation bilaterally. Heart: S1, S2. Abdomen: Soft, benign. Extremities: No edema. Diagnostic Studies: Sodium 132, potassium 3.6, BUN 23, creatinine 5.7, calcium 7.6, phosphorus 3.7, albumin 2, corrected calcium 9.2. PTH is 39. Renal ultrasound is negative for perinephric hematoma. Impression And Plan: 1. Acute kidney injury with nephrotic range proteinuria, likely related to nephritis. The patient needs to be rule out for monoclonal gammopathy of unknown significance. 2. Anemia of chronic kidney disease, status post transfusion. Continue to monitor and continue YUMIKO. 3. Hypertension. Blood pressure control is optimal. Continue treatment. 4. Hypokalemia. Dialysis will be done with special dialysate to control hypokalemia. I spent total 36 min including 25 min to coordinate care plan. JOSE/PAULINO Voice ID: [id number] Report ID: [id number] ABRAHAN
[2020-05-17] MEDS: METOPROLOL TAR 25 MG TAB PO SCH ×2 (05:51→16:59)
[2020-05-17 06:01] LABS: Phosphorus 4.6 mg/dL (2.5-4.9)
[2020-05-17] MEDS: NEPRO SHAKE 237 ML CAN PO SCH (07:55)
[2020-05-17] MEDS: CEFTRIAXONE/SWI 1gm 1 GM/10 ML SYR IV SCH (07:55)
--- NOTE | 2020-05-17 09:32 | P.PN ---
Date of Service: 05/16/20 Subjective Subjective: Patient states her energy is a little bit better. She is still not feeling like herself. Spoke with Nephrology and pathology report revealed light chains- concern for possible multiple myeloma. Review of Systems Unremarkable Physical Examination - Vital Signs Reviewed - Physical Exam General: Alert, In no apparent distress Respiratory: Clear to auscultation bilaterally, Normal air movement Cardiovascular: Regular rate/rhythm, Normal S1 S2 Gastrointestinal: Normal bowel sounds, No tenderness Neurological: Normal speech, Normal tone, Normal affect Lymphatics: No axilla or inguinal lymphadenopathy Assessment & Plan 1. Acute renal failure, likely end-stage renal disease-now on hemodialysis 2. Decreased appetite, loss of sense of taste and smell 3. Possible multiple myeloma; increased light chain 4. Acute GI blood loss Plan 1. Continue with HD per nephrology 2. Hematology consult 3. Monitor H&H closely 4. Arranging for outpt hemodialysis 5. Patient will need to continue with POC 6. GI/DVT prophylaxis Critical Care: No Time Spent Managing Pts Care (In Minutes): 55
--- NOTE | 2020-05-17 19:44 | PN ---
Date of Progress Note: 05/17/2020 Subjective: The patient was admitted with acute kidney injury. The patient required initiating on d ialysis. 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 As by the pathologist, we are still waiting for the official report. The patient tolerati ng the dialysis very well. Physical Examination: Vital Signs: When I saw the patient, the blood pressure 133/77, pulse of 94, afebrile. The patient still had urinating. Chest: Clear to auscultation. Heart: S1, S2. Regular. Abdomen: Soft, nontender. Extremities: No edema. Neurologic: Alert and oriented x3. Nonfocal. Laboratory Data: H and H 9.12/31. Sodium 130, potassium 4, bicarb 30, chloride 99, BUN 25, creatinin e 6.2, calcium 8.1, phosphorus 4.6. Haptoglobin 241. Current Medications: The patient on include heparin, Epogen, metoprolol 25 b.i.d. 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 Biopsy showing that the patient had 65% of fibrosis. The patient mostly can need permanent dialysis. The patient had a tunneled dialysis jorje ter. We will arrange for dialysis as outpatient. We will discuss with family the option of dialysis . We will consult Hematology for evaluation of the light chain disease. 2.Hypertension, controlled, optimal. I am going to start the patient on low dose of losartan given the proteinuria and we will follow up as above. The patient is going to need Hematology evaluation. 3.Hyponatremia secondary to renal failure, going to be corrected on dialysis. 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 Will foll ow up with Hematology. Continue YUMIKO. 5.Hypocalcemia, corrected calcium within normal limits. We will follow up. TOMASZ Voice ID: [id number] Report ID: [id number]
[2020-05-18] MEDS: METOPROLOL TAR 25 MG TAB PO SCH ×2 (05:07→16:49)
[2020-05-18 06:13] LABS: Absolute Lymphocytes (CBC) 3.1 K/uL (0.7-4.9); Basophils % 1.2 % (0-1.3); Hematocrit 25.4 % (36.0-45.0); Lymphocytes % 26.7 % (15.3-44.8); MPV 8.2 fL (7.6-11.3)
[2020-05-18 06:49] LABS: Albumin 1.9 g/dL (3.4-5.0); Bilirubin Total 0.2 mg/dL (0.2-1.0); Magnesium 2.2 mg/dL (1.8-2.4); Phosphorus 5.2 mg/dL (2.5-4.9); Protein, Total 15.4 g/dL (6.4-8.2)
[2020-05-18 07:00] LABS: Blood Morphology Comment NOTED (NOT SEEN); Platelet Estimate ADEQ; Platelets, Giant NOTED; Rouleau NOTED
[2020-05-18] MEDS: NEPRO SHAKE 237 ML CAN PO SCH (08:30)
[2020-05-18] MEDS: LOSARTAN POTASSIUM 50 MG TABLET PO SCH (08:30)
[2020-05-18] MEDS: CEFTRIAXONE/SWI 1gm 1 GM/10 ML SYR IV SCH (08:30)
--- NOTE | 2020-05-18 14:28 | PN ---
Date of Progress Note: 05/18/2020 Subjective: The patient was admitted with acute kidney injury, nephrotic range of proteinuria. 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 The patient evaluated by Hematology. Considering outpatient evaluation. The patient had dialysis on the . Physical Examination: Vital Signs: Blood pressure 137/65, pulse of 68, afebrile. Chest: Clear to auscultation. Heart S1, S2. Systolic murmur. Abdomen: Soft, nontender. Extremities: No edema. Laboratory Data: WBC 11.6, H and H 8.6/25.4, platelet 148. Sodium 127, potassium 4, bicarb 27, BUN 36, creatinine 8.1, calcium 7.8, phosphorus 5.2, magnesium 2.2. CK, serum protein electrophoresis is still pending. PTH 39. Vitamin D still pending. Serology EDWIGE positive, the titer still not done. The rest of the serology hep C reactive. Haptoglobin elevated. Current Medications: The patient on include; 1. Heparin. 2. Epogen. 3. Losartan 12.5. 4. Metoprolol. Assessment And Plan: 1. Acute kidney injury on advanced chronic kidney disease, mostly end-stage renal disease given the finding on the biopsy with 65% fibrosis, secondary to light chain disease. We are going to arrange for the patient to have dialysis today. We will refer her for home hemodialysis and we will follow up. 2. The patient is going to need evaluation by Hematology as outpatient. 3. Hypertension. Continue current medication. 4. Hyponatremia secondary to renal failure, nephrotic range of proteinuria, going to be corrected with dialysis. 5. 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 We will follow up her SPEP. Follow up with Hematology. Continue losartan. Time spend for patient Care face to face , ordering and discussing the plan of care with staff 35 min TOMASZ Voice ID: [id number] Report ID: [id number] ABRAHAN
--- NOTE | 2020-05-18 20:19 | CON ---
Date of Consultation: 05/18/2020 Additional Consulting Physician: Melo Patterson M.D. Reason For Consultation: Light chain disease of the kidneys, possible multiple myeloma. History Of Present Illness: Ms. Velazquez is a 74-year-old lady who presented to the emergency room on the 11 of May with complaints of loss of appetite and weight and extreme fatig ue, which she said was going on for about a month. She had been placed on antibiotics for what was s upposedly a UTI in spite of which her symptoms persisted. She tells me that she saw Dr. Jhaveri who ask ed her to go to the emergency room. In the emergency department, she was noted to be in acute renal failure with a creatinine of 10. She was also noted to be anemic. Hemoglobin was 8 g/dL. She was h ospitalized for further evaluation and management of acute renal failure. Nephrology was consulted a nd as part of the workup, a renal biopsy was performed on 05/13/2020, which revealed light chain cast nephropathy, kappa type. I was consulted for possible multiple myeloma. Ms. Velazquez describes decrease in appetite and a 30-pound weight loss in the past 6 months. Thinkin g back, she says she has not felt well for about 6 months. She denies any bone pain or bone fracture s. There are no complaints of recurrent infections. She denies any cough, sputum, or hemoptysis. T here are no complaints of headache, dizziness, or blurred vision. Review of Systems: Otherwise unremarkable. Past Medical History: She is generally a healthy woman. Denies a history of hypertension or diabete s. Past Surgical History: Consists of: 1.A surgery for a fractured patella. 2.Ankle surgery. Medications: She was on no medications at home. Current medications in the hospital are as follows: Tylenol 500 mg q.4 hours p.r.n. for pain or temp erature, Retacrit 04909 units at dialysis, hydralazine 10 mg q.4 hours p.r.n. for blood pressure more than 160 systolic, losartan 12.5 mg p.o. daily, metoprolol 25 mg p.o. b.i.d., and ondansetron 4 mg I V q.6 hours p.r.n. for nausea or vomiting. Allergies: UNKNOWN. SHE THINKS SHE IS ALLERGIC TO AN ANTIBIOTIC BUT NOT SURE WHICH ONE. Social And Family History: She is a and has 3 children, in generally good health. She is a ne tyler smoker and denies any history of alcohol use. Family history is not significant for hypertension, diabetes, or malignancy. Physical Examination: General: On examination today, Ms. Velazquez was resting comfortably. Vital Signs: She has been afebrile. Temperature was 97.2 Fahrenheit at noon today, pulse 85, respir ations 18, blood pressure 124/68. She is saturating at 98% on room air. I's and O's reveal that she has had very little urine output approximately 200-400 cc a day while on dialysis. HEENT: General physical examination reveals pallor. There is no icterus, cyanosis, petechiae, or br uising. HEENT examination reveals no mucositis or thrush. Lymph Node: Survey reveals no palpable lymphadenopathy in the neck, axilla, or groin. Chest: Clear to auscultation. Heart: Sounds reveal normal S1, S2. No gallops or murmurs were heard. Abdomen: Soft and nontender. Liver, spleen not palpable. Bowel sounds were present. Neurologic: She is alert and oriented with no acute deficits. Extremities: Show no evidence of edema. Laboratory Data: [place] [address], hemoglobin was 8.6, hematocrit 25.4 with platelet count of 148,000. Retic count done on the 13 of May was normal. Chemistries revealed a total serum protein of 15 g/dL. Albumin was low at 1.9, total globulins were increased at 13.5 g/dL. Sodium is low at 127, BUN and creatinine remain high. Calcium was low consistent with t he low albumin. Serum protein electrophoresis is pending as is the serum immunoelectrophoresis. 24- hour urine studies were ordered and are pending at this time. IgG, IgA, and IgM are pending as well. Assessment And Plan: 1.Light chain disease of the kidney. Given her presentation, end organ involvement, and significant elevation in her globulins, the probability of multiple myeloma is exceedingly high. As noted above , blood has been sent for a workup and laboratories are pending at this time. I explained to her lianet t she would need a bone marrow biopsy as an outpatient to confirm a diagnosis of multiple myeloma. I spoke to her granddaughter on the phone and we discussed that this is a malignancy, but a treatable one. Ms. Velazquez would certainly be a good candidate for therapy of multiple myeloma. The goal of therapy is to induce remission and to keep her in remission and prolong survival. Once myeloma is co nfirmed, she will be started on Xgeva, calcium, and vitamin D for bone health. 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 She is currently on dialy sis and receiving Procrit. She may need higher doses of erythropoietin once she starts chemotherapy to maintain a hemoglobin and hematocrit of 10 and 30. 3.Acute renal failure. She is currently on hemodialysis, which is being set up as an outpatient as well. Whether or not her renal function will improve is unknown. We have seen renal function improv e with myeloma therapy but to what extent is unclear at this time. She will continue to follow with Nephrology as advised. I have told Ms. Velazquez to follow up with us in clinic after discharge. We will see her sometime ne xt week to follow up on her lab results and set up the bone marrow biopsy as an outpatient. LIANNE/PAULINO Voice ID: [id number] Report ID: [id number]
[2020-05-19 00:35] LABS: Vitamin D 1,25-Dihydroxy Total <8 pg/mL (18-72); Vitamin D,1,25-OH2, D2 <8 pg/mL
[2020-05-19] MEDS: METOPROLOL TAR 25 MG TAB PO SCH (05:27)
[2020-05-19] MEDS: LOSARTAN POTASSIUM 50 MG TABLET PO SCH (08:40)
[2020-05-19] MEDS: NEPRO SHAKE 237 ML CAN PO SCH (08:40)
[2020-05-19 15:45] LABS: Hepatitis C Virus RNA (PCR)log <1.18 log IU/mL
--- NOTE | 2020-05-19 16:26 | PN ---
Date of Progress Note: 05/19/2020 Subjective: The patient was admitted with acute kidney injury secondary to light chain disease kappa, confirmed with biopsy. Patient to undergo required dialysis dependent. The patient has dialysis, managed to remove 1 L. Patient was seen by Hematology. Their recommendation is to do bone marrow biopsy and then depending on that there is going to be Xgeva as treatment. Physical Examination: Vital Signs: Blood pressure 97/72, pulse of 86. Chest: Clear to auscultation. Heart: S1, S2 regular. Abdomen: Soft, nontender. Extremities: No edema. Laboratory Data: WBC 11.6, H and H 8.6/25.4, platelet 148. Sodium 127, potassium 4, bicarb 27, BUN 36, creatinine 8, calcium 7.8, phosphorus 5.2, magnesium 2.2. PTH of 39. Current Medications: Include heparin, Epogen, metoprolol, losartan 12.5, Tylenol. Assessment And Plan: 1. Acute kidney injury on chronic kidney disease secondary to light chain disease. The patient is dialysis dependent. We will continue dialysis for the patient. The patient needs setup for outpatient dialysis if approved for [facility]. We will proceed for discharge. 2. Hypertension, currently blood pressure on the lower side. Hold metoprolol. We will utilize blood pressure for ARB. 3. Light chain disease. We will follow up with Hematology/Oncology. Plan for bone marrow biopsy as outpatient. 4. Anemia of chronic kidney disease/light chain disease. Continue YUMIKO. 5. Nephrotic range of proteinuria secondary to light chain disease. Continue losartan. We will follow up with Hematology. Time spend for patient Care face to face , ordering and discussing the plan of care with staff 35 min TOMASZ Voice ID: [id number] Report ID: [id number] ABRAHAN
[2020-05-19 18:45] LABS: HBsAG Nonreactive (Nonreactive)
[2020-05-19 20:06] LABS: Hep C Virus RNA (PCR)log <1.18 log IU/mL
--- NOTE | 2020-05-20 01:51 | PN ---
Date of Progress Note: 05/19/2020 Subjective: The patient was admitted with acute kidney injury on chronic kidney disease secondary to light chain disease confirmed with biopsy. The patient was seen on dialysis. Objective: Vital Signs: Blood pressure of 125/72, pulse of 89, afebrile. Chest: Clear to auscultation. Heart: S1, S2, regular. Abdomen: Soft, nontender. Extremities: No edema. Neurological: Alert and oriented x3. Laboratory Data: H and H of 8.6/25.4. Sodium 127, potassium 4, bicarb 27, BUN 36, creatinine 8.1. Assessment And Plan: 1. End-stage renal disease with acute kidney injury secondary to light chain disease, dialysis dependent. We will continue dialysis for the patient and we will monitor. 2. Hyponatremia. I am going to change the sodium bath to 145 to correct the hyponatremia. 3. Light chain disease. We will follow up with Hematology. 4. Anemia of chronic kidney disease. Continue YUMIKO. 5. Hypertension. We will increase losartan, discontinue metoprolol. Time spend for patient Care face to face , ordering and discussing the plan of care with staff 35 min TOMASZ Voice ID: [id number] Report ID: [id number] ABRAHAN
[2020-05-20] MEDS: LOSARTAN POTASSIUM 50 MG TABLET PO SCH (09:00)
[2020-05-20] MEDS: NEPRO SHAKE 237 ML CAN PO SCH (09:00)
[2020-05-20 11:18] LABS: Absolute Lymphocytes (CBC) 3.7 K/uL (0.7-4.9); Basophils % 0.9 % (0-1.3); Hematocrit 24.5 % (36.0-45.0); MPV 8.2 fL (7.6-11.3)
[2020-05-20 11:37] LABS: Potassium 4.5 mmol/L (3.5-5.1)
--- NOTE | 2020-05-20 12:01 | P.PN ---
Subjective Date of Service: 05/20/20 Primary Care Provider: Krystal Chief Complaint: Acute renal failure Subjective Pt with CKD , was admitted for worsening RFT , started on HD , pt had light chain disease Today no new complaints stable VS dialysis today Physical exam general: Awake and alert , NAD , obese Neck; Supple, No elevated JVD hear: RRR, normal S1,2 no murmur or rub Chest: CTAB, no rales or wheezes Abdomen: Soft , Nt Extremities No edema or ulcer A/p ESRD started on HD this admission will cont HD MWF renal dose meds HTN BP controlled Anemic of chronic disease cnt epogen due to CKD and light chain disease hematology on baord plan for bone marrow biopsy as an OP Hyponatremia could be pseudohyponatremia due to light chain disease Asymptomatic cont HD Physical Examination - Vital Signs Temperature: 97.9 F Blood Pressure: 135/71 Pulse: 94 Respirations: 16 Pulse Ox (%): 97 - Studies Microbiology Data (last 24 hrs): 05/11/20 16:14 Nasopharnyx Coronavirus COVID-19 PCR - Final Medications List Reviewed: Yes
[2020-05-20 12:53] LABS: Anisocytosis 1+; Blood Morphology Comment NOTED (NOT SEEN); Platelet Estimate ADEQ
[2020-05-20 12:54] LABS: Hypochromasia 1+; Rouleau NOTED
[2020-05-20] MEDS ORDERED: ALTEPLASE 2 MG/VIAL IV SCH (14:00)
[2020-05-20] MEDS: ALTEPLASE 2 MG/VIAL IV SCH ×4 (14:00→14:03)
[2020-05-20] MEDS: WATER FOR INJ,STERILE 10 ML IV SCH ×4 (14:00→14:03)
[2020-05-20] MEDS: EPOETIN ALFA 10,000 UNIT/ML VIAL IV SCH (14:50)
[2020-05-21 03:39] LABS: Albumin, (SPE) 3.6 g/dL (3.8-4.8); Alpha-1-Globulins 0.6 g/dL (0.2-0.3); Alpha-2-Globulins 1.2 g/dL (0.5-0.9); Gamma Globulins 8.2 g/dL (0.8-1.7); INTERPRETATION REPORT
[2020-05-21] MEDS: NEPRO SHAKE 237 ML CAN PO SCH (07:28)
[2020-05-21] MEDS: LOSARTAN POTASSIUM 50 MG TABLET PO SCH ×2 (09:00→11:00)
--- NOTE | 2020-05-21 12:28 | PN ---
Date of Progress Note: 05/21/2020 The patient's dialysis catheter apparently was not working up to speed via the dialysis nurse. I tri ed contacting the dialysis nurse, they did not answer. To know the exact details of what is happenin g, so I did speak to Dr. Osorio and he states that they were only able to get up even after Cathflo, but they did not reverse the tubing, so I evaluated the catheter. We used 100 units of hep amish per cc and I was able to get excellent blood flow without any resistance and I was able to flush it without any problems. So at this time, there does appear to be mechanical issue that I can detec t, there may be a valve at the tip of the catheter. Little clot has a , but I would not re commend changing the catheter right now. I spoke with Dr. Osorio and he will instruct the dialysis nu rse to try changing the port and then also try Cathflo little bit more for longer duration and should it not work after that, then obviously we will have to replace it, but lets try the conservative colin sures first. SHANNON/MODL Voice ID: [id number] Report ID: [id number]
--- NOTE | 2020-05-21 15:04 | PN ---
Date of Progress Note: 05/21/2020 Subjective: The patient was admitted with acute kidney injury, found to have light chain disease on the biopsy. The patient was initiated on renal replacement therapy, started on dialysis. The patient tolerating the dialysis. The catheter has malfunction, loss treatment. Activase was used, fail. Surgeon evaluate the catheter. We will try Activase again today. Objective: Vital Signs: Blood pressure 118/74, pulse of 106, afebrile. The patient had ultrafiltration of 875. Chest: Clear to auscultation. Heart: S1 and S2. RRR systolic murmur. Abdomen: Soft. Nontender. Extremities: No edema. Neurologic: Alert and oriented x3. No focal. Laboratory Data: WBC 13.2, H and H 8.3/24.5, platelets 213. Sodium 128, potassium 4.5, bicarb 27, BUN 29, creatinine 7.8, calcium 7.9. Serum protein electrophoresis positive for M-spike. Current Medications: The patient is on include heparin, Epogen, losartan 12.5, Tylenol Assessment And Plan: 1. 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 We will continue dialysis Saturday, Saturday, and Saturday. We will test the catheter again today after Activase. If catheter work, the patient is going to be cleared from the renal standpoint for discharge planning. The patient already has chair time to be started on the Saturday, Saturday, Saturday at 4:15. 2. Hypertension, controlled, optimal. Continue to utilize the blood pressure for dialysis. 3. Pseudohyponatremia secondary to nephrotic and renal failure. We are going to be corrected with dialysis. 4. Anemia of chronic kidney disease/light chain disease. Continue YUMIKO. 5. Secondary hyperparathyroidism with hypocalcemia. Continue current treatment. 6. Light chain disease, questionable multiple myeloma. We will follow up Hematology as outpatient. Time spend for patient Care face to face , ordering and discussing the plan of care with staff 35 min YANG/PAULINO Voice ID: [id number] Report ID: [id number] ABRAHAN
[2020-05-21] MEDS: WATER FOR INJ,STERILE 10 ML IV SCH ×2 (16:00)
[2020-05-21] MEDS ORDERED: ALTEPLASE 2 MG/VIAL IV SCH (16:00)
[2020-05-21] MEDS: ALTEPLASE 2 MG/VIAL IV SCH ×2 (16:00)
[2020-05-22] MEDS: LOSARTAN POTASSIUM 50 MG TABLET PO SCH (09:56)
[2020-05-22] MEDS: NEPRO SHAKE 237 ML CAN PO SCH (09:59)
--- NOTE | 2020-05-22 11:49 | PN ---
Date of Progress Note: 05/22/2020 Subjective: Patient was admitted with acute kidney injury secondary to light chain disease confirmed with biopsy. Patient was initiated on renal replacement therapy. Tolerating dialysis. Apparently her catheter was not working well. We can test the catheter today with Activase. Objective: Vital Signs: Blood pressure 111/64, pulse of 100, afebrile. Chest: Clear to auscultation. Heart: S1, S2 regular. Abdomen: Soft, nontender. Extremities: No edema. Laboratory Data: WBC 13.2, H and H 8.3/24.5. Sodium 128, potassium 4.5, bicarb 27, BUN 29, creatinine 7.8, calcium 7 9. Medications: Current medications the patient is on include: 1. Heparin. 2. Hydralazine. 3. Losartan 12.5. 4. Nepro. Assessment And Plan: 1. Acute kidney injury secondary to light chain disease confirmed with a biopsy. I am going to continue dialysis Saturday, Saturday, Saturday. Patient due for dialysis tomorrow. We will test the catheter again today and depending on that if catheter working, patient may be able to discharge home to follow up as outpatient. 2. Light chain disease. Will follow up with Hematology as outpatient. Patient is going to need bone lazo. 3. Hyponatremia secondary to renal failure/nephrotic secondary to light chain disease, is going to be corrected with dialysis. 4. Anemia secondary to light chain disease, chronic kidney disease. Continue YUMIKO. 5. Hypertension, controlled, optimal. Continue losartan. Time spend for patient Care face to face , ordering and discussing the plan of care with staff 35 min TOMASZ Voice ID: [id number] Report ID: [id number] ABRAHAN
[2020-05-22] MEDS: ALTEPLASE 2 MG/VIAL IV SCH ×2 (12:00)
[2020-05-22] MEDS: WATER FOR INJ,STERILE 10 ML IV SCH ×2 (12:00)
[2020-05-22] MEDS: EPOETIN ALFA 10,000 UNIT/ML VIAL IV SCH (13:15)
--- NOTE | 2020-05-22 16:04 | P.PN ---
Subjective Date of Service: 05/17/20 Subjective: No new changes, No C/O voiced, Improving, New changes, C/O voiced Review of Systems 10-point ROS is otherwise unremarkable Physical Examination - Vital Signs Temperature: 97.5 F Blood Pressure: 128/79 Pulse: 115 Respirations: 15 Pulse Ox (%): 96 - Physical Exam General: Alert, In no apparent distress, Oriented x3 HEENT: EOMI Respiratory: Clear to auscultation bilaterally, Normal air movement Cardiovascular: Regular rate/rhythm, Normal S1 S2, No murmurs Gastrointestinal: Normal bowel sounds, No tenderness Musculoskeletal: No tenderness Neurological: Normal speech, Normal tone, Normal affect, Abnormal strength - Studies Medications List Reviewed: Yes Assessment & Plan - Problems (Diagnosis) (1) ESRD (end stage renal disease) Current Visit: Yes Status: Acute (2) Multiple myeloma Current Visit: Yes Status: Acute (3) Anorexia Current Visit: Yes Status: Acute (4) GI bleeding Current Visit: Yes Status: Acute (5) Hypertension Current Visit: Yes Status: Acute Qualifiers: Hypertension type: essential hypertension Qualified Code(s): I10 - Essential (primary) hypertension - Plan Plan: 1. Hemodialysis per Nephrology 2. Spoke with Hematology and they want outpatient follow-up for bone marrow biopsy 3. Strict blood pressure control 4. Therapy and out of bed and ambulate 5. Pain control 6. Arrange for chair time pending hepatitis profile 7. GI and DVT prophylaxis Discharge Plan: Home Plan to discharge in: Greater than 2 days - Advance Directives Does patient have a Living Will: No Does patient have a Durable POA for Healthcare: No - Code Status/Comfort Care Code Status Assessed: Yes Code Status: Full Code Critical Care: No Time Spent Managing PTS Care (In Minutes): 30
--- NOTE | 2020-05-22 16:07 | P.PN ---
Subjective Date of Service: 05/18/20 Patient continues to feel better. No new complaints. Awaiting for chair time and hepatitis profile. Review of Systems 10-point ROS is otherwise unremarkable Physical Examination - Vital Signs Temperature: 97.5 F Blood Pressure: 128/79 Pulse: 115 Respirations: 15 Pulse Ox (%): 96 - Physical Exam General: Alert, In no apparent distress, Oriented x3 Respiratory: Clear to auscultation bilaterally, Normal air movement Cardiovascular: Regular rate/rhythm, Normal S1 S2, No murmurs Gastrointestinal: Normal bowel sounds, Soft and benign, Non-distended, No tenderness Musculoskeletal: No clubbing, No swelling, No tenderness Neurological: Normal strength at 5/5 x4 extr, Normal tone, Sensation intact, Cranial nerves 3-12 intact Lymphatics: No axilla or inguinal lymphadenopathy - Studies Medications List Reviewed: Yes Assessment & Plan - Problems (Diagnosis) (1) ESRD (end stage renal disease) Current Visit: Yes Status: Acute (2) Multiple myeloma Current Visit: Yes Status: Acute (3) Anorexia Current Visit: Yes Status: Acute (4) GI bleeding Current Visit: Yes Status: Acute (5) Hypertension Current Visit: Yes Status: Acute Qualifiers: Hypertension type: essential hypertension Qualified Code(s): I10 - Essential (primary) hypertension - Plan Plan: Continue with plan of care as mentioned below. Premature just awaiting chair time. 1. Hemodialysis per Nephrology 2. Spoke with Hematology and they want outpatient follow-up for bone marrow biopsy 3. Strict blood pressure control 4. Therapy and out of bed and ambulate 5. Pain control 6. Arrange for chair time pending hepatitis profile 7. GI and DVT prophylaxis Discharge Plan: Home Plan to discharge in: Greater than 2 days - Advance Directives Does patient have a Living Will: No Does patient have a Durable POA for Healthcare: No - Code Status/Comfort Care Code Status: Full Code Critical Care: No Time Spent Managing PTS Care (In Minutes): 35
--- NOTE | 2020-05-22 16:22 | P.PN ---
Subjective Date of Service: 05/19/20 Patient is doing well with no new complaints. She is tolerating her diet. She is able to communicate with me pretty effectively. At this time, she is close to going home once we get chair time pending hep profile Review of Systems 10-point ROS is otherwise unremarkable Physical Examination - Vital Signs Temperature: 97.5 F Blood Pressure: 128/79 Pulse: 115 Respirations: 15 Pulse Ox (%): 96 - Physical Exam General: Alert, In no apparent distress, Oriented x3 Respiratory: Clear to auscultation bilaterally, Normal air movement Cardiovascular: Regular rate/rhythm, Normal S1 S2, No murmurs Gastrointestinal: Soft and benign, Non-distended, No tenderness, No rebound, No guarding Musculoskeletal: No clubbing, No swelling - Studies Medications List Reviewed: Yes Assessment & Plan - Problems (Diagnosis) (1) ESRD (end stage renal disease) Current Visit: Yes Status: Acute (2) Multiple myeloma Current Visit: Yes Status: Acute (3) Anorexia Current Visit: Yes Status: Acute (4) GI bleeding Current Visit: Yes Status: Acute (5) Hypertension Current Visit: Yes Status: Acute Qualifiers: Hypertension type: essential hypertension Qualified Code(s): I10 - Essential (primary) hypertension - Plan Plan: Continue with plan of care as mentioned below. Premature just awaiting chair time. 1. Hemodialysis per Nephrology 2. Hematology will follow up as an outpatient for bone marrow biopsy 3. patient blood pressure has been fairly stable 4. Therapy and out of bed and ambulate; patient ambulating without difficulty 5. Pain control 6. Arrange for chair time pending hepatitis profile 7. GI and DVT prophylaxis Discharge Plan: Home Plan to discharge in: Greater than 2 days - Advance Directives Does patient have a Living Will: No Does patient have a Durable POA for Healthcare: No - Code Status/Comfort Care Code Status: Full Code Critical Care: No Time Spent Managing PTS Care (In Minutes): 30
--- NOTE | 2020-05-22 16:28 | P.PN ---
Subjective Date of Service: 05/20/20 patient is doing well. Spoke with Nephrology and it appears that her dialysis access catheter is not working properly. Surgery is scheduled to flush the catheter. May need to be replaced. They are planning to assess the catheter tomorrow. Review of Systems 10-point ROS is otherwise unremarkable Physical Examination - Vital Signs Temperature: 97.5 F Blood Pressure: 128/79 Pulse: 115 Respirations: 15 Pulse Ox (%): 96 - Physical Exam General: Alert, In no apparent distress, Oriented x3 Respiratory: Clear to auscultation bilaterally, Normal air movement Cardiovascular: Regular rate/rhythm, Normal S1 S2 Gastrointestinal: Soft and benign, Non-distended, No tenderness, No rebound, No guarding Neurological: Abnormal gait, Abnormal speech, Abnormal strength - Studies Medications List Reviewed: Yes Assessment & Plan - Problems (Diagnosis) (1) ESRD (end stage renal disease) Current Visit: Yes Status: Acute (2) Multiple myeloma Current Visit: Yes Status: Acute (3) Anorexia Current Visit: Yes Status: Acute (4) GI bleeding Current Visit: Yes Status: Acute (5) Hypertension Current Visit: Yes Status: Acute Qualifiers: Hypertension type: essential hypertension Qualified Code(s): I10 - Essential (primary) hypertension - Plan Plan: Continue with plan of care as mentioned below. Was hepatitis profile is back then we should be able to get chair time 1. Hemodialysis per Nephrology 2. Hematology will follow up as an outpatient for bone marrow biopsy; diagnosis of multiple myeloma for patient's workup already. 3. patient blood pressure has been fairly stable 4. Therapy and out of bed and ambulate; patient ambulating without difficulty 5. Pain control 6. Arrange for chair time pending hepatitis profile 7. GI and DVT prophylaxis Discharge Plan: Home Plan to discharge in: Greater than 2 days - Advance Directives Does patient have a Living Will: No Does patient have a Durable POA for Healthcare: No - Code Status/Comfort Care Code Status: Full Code Critical Care: No Time Spent Managing PTS Care (In Minutes): 30
--- NOTE | 2020-05-22 16:31 | P.PN ---
Subjective Date of Service: 05/21/20 Catheter flush. Needs to be re-attempted tomorrow. If not flushing than surgical consultation. Review of Systems 10-point ROS is otherwise unremarkable Physical Examination - Vital Signs Temperature: 97.5 F Blood Pressure: 128/79 Pulse: 115 Respirations: 15 Pulse Ox (%): 96 - Physical Exam General: Alert, In no apparent distress, Oriented x3 Respiratory: Clear to auscultation bilaterally, Normal air movement Cardiovascular: Regular rate/rhythm, Normal S1 S2 Gastrointestinal: Normal bowel sounds, Soft and benign, Non-distended, No tenderness Musculoskeletal: No clubbing, No swelling Neurological: Cranial nerves 3-12 intact, Abnormal strength - Studies Medications List Reviewed: Yes Assessment & Plan - Problems (Diagnosis) (1) ESRD (end stage renal disease) Current Visit: Yes Status: Acute (2) Multiple myeloma Current Visit: Yes Status: Acute (3) Anorexia Current Visit: Yes Status: Acute (4) GI bleeding Current Visit: Yes Status: Acute (5) Hypertension Current Visit: Yes Status: Acute Qualifiers: Hypertension type: essential hypertension Qualified Code(s): I10 - Essential (primary) hypertension - Plan Plan: Continue with plan of care as mentioned below. When hepatitis profile is back then we should be able to get chair time 1. Continue hemodialysis per Nephrology once hemodialysis access catheter is flushed; if not functioning then replace the catheter per surgery 2. Outpatient Hematology [id number] plan on doing bone marrow biopsy as an outpatient 3. patient blood pressure has been fairly stable 4. Therapy and out of bed and ambulate; patient ambulating without difficulty 5. Pain control 6. GI and DVT prophylaxis Discharge Plan: Home Plan to discharge in: Greater than 2 days - Advance Directives Does patient have a Living Will: No Does patient have a Durable POA for Healthcare: No - Code Status/Comfort Care Code Status: Full Code Critical Care: No Time Spent Managing PTS Care (In Minutes): 30
--- NOTE | 2020-05-22 16:35 | P.PN ---
Subjective Date of Service: 05/22/20 Patient is doing well. Nephrology spoke to general surgery and they will be replacing dialysis access catheter tomorrow. Dr. Cheema to proceed with procedure. Review of Systems 10-point ROS is otherwise unremarkable Physical Examination - Vital Signs Temperature: 97.5 F Blood Pressure: 128/79 Pulse: 115 Respirations: 15 Pulse Ox (%): 96 - Physical Exam General: Alert, In no apparent distress, Oriented x3 Respiratory: Clear to auscultation bilaterally, Normal air movement Cardiovascular: Regular rate/rhythm, Normal S1 S2, No murmurs Gastrointestinal: Normal bowel sounds, Soft and benign, Non-distended, No tenderness Musculoskeletal: No clubbing, No swelling, No contractures Neurological: Normal gait, Normal strength at 5/5 x4 extr, Sensation intact, Cranial nerves 3-12 intact - Studies Medications List Reviewed: Yes Assessment & Plan - Problems (Diagnosis) (1) ESRD (end stage renal disease) Current Visit: Yes Status: Acute (2) Multiple myeloma Current Visit: Yes Status: Acute (3) Anorexia Current Visit: Yes Status: Acute (4) GI bleeding Current Visit: Yes Status: Acute (5) Hypertension Current Visit: Yes Status: Acute Qualifiers: Hypertension type: essential hypertension Qualified Code(s): I10 - Essential (primary) hypertension (6) Hemodialysis catheter dysfunction Current Visit: Yes Status: Acute Qualifiers: Encounter type: initial encounter Qualified Code(s): T82.41XA - Breakdown (mechanical) of vascular dialysis catheter, initial encounter - Plan Plan: Continue with plan of care as mentioned below. Hepatitis profile is back. Chair time was obtained. However, hemodialysis access catheter is no longer functioning. This will need to be replaced 1. Continue hemodialysis per Nephrology once hemodialysis access catheter is replaced 2. Outpatient Hematology [id number] plan on doing bone marrow biopsy as an outpatient 3. Blood pressure is stable 4. Ambulating without difficulty 5. Pain control 6. GI and DVT prophylaxis Discharge Plan: Home Plan to discharge in: Greater than 2 days - Advance Directives Does patient have a Living Will: No Does patient have a Durable POA for Healthcare: No - Code Status/Comfort Care Code Status: Full Code Critical Care: No Time Spent Managing PTS Care (In Minutes): 30
[2020-05-23] MEDS: NEPRO SHAKE 237 ML CAN PO SCH (09:00)
[2020-05-23] MEDS: LOSARTAN POTASSIUM 50 MG TABLET PO SCH (09:00)
[2020-05-23] MEDS ORDERED: CEFAZOLIN/SWI 1gm 1 GM/10 ML SYR ONE (09:03)
[2020-05-23] MEDS ORDERED: NA CHLORIDE 0.9% 500 ML ONE (09:03)
--- NOTE | 2020-05-23 09:27 | PN ---
Date of Progress Note: 05/23/2020 The patient is awake and alert. No complaints. She did have dialysis yesterday. Again, the cathete r was not working appropriate right. They try to reverse the midline. Therefore patient needs new T esio catheter. So informed consent is obtained from the patient to remove and replace the Tesio cath eter. She understands risks, benefits, and alternatives and agrees to procedure. /MODL Voice ID: [id number] Report ID: [id number]
[2020-05-23] MEDS ORDERED: NS 0.9% VIAL 10 ML ONE (09:50)
[2020-05-23] MEDS ORDERED: HEPARIN 5000 UNIT/ML 1 ML VIAL ONE (09:51)
[2020-05-23] MEDS ORDERED: NA CHLORIDE 0.9% 100 ML IV ONE (09:51)
[2020-05-23] MEDS ORDERED: LIDOCAINE 1% 20 ML MDV ONE (09:51)
[2020-05-23] MEDS ORDERED: propofoL 200 MG/20 ML VIAL IV ONE (10:31)
[2020-05-23] MEDS ORDERED: FENTANYL CITR 100 MCG/2 ML ONE (10:31)
[2020-05-23] MEDS ORDERED: LIDOCAINE 2% MPF 5 ML VIAL ONE (10:31)
[2020-05-23] MEDS ORDERED: CEFAZOLIN SODIUM 1 GM/VIAL ONE (11:37)
--- NOTE | 2020-05-23 11:41 | P.PN ---
Subjective Date of Service: 05/23/20 Primary Care Provider: Krystal Chief Complaint: Acute renal failure Subjective: No new changes, Other (No acute events Denies any chest pain or shortness of breath) Review of Systems 10-point ROS is otherwise unremarkable Physical Examination - Vital Signs Temperature: 97.6 F Blood Pressure: 137/72 Pulse: 98 Respirations: 18 Pulse Ox (%): 95 - Physical Exam General: Alert, In no apparent distress HEENT: Atraumatic, Normocephalic Neck: Supple, 2+ carotid pulse no bruit Respiratory: Clear to auscultation bilaterally, Normal air movement Cardiovascular: No edema, Regular rate/rhythm, Normal S1 S2 Capillary refill: <2 Seconds Gastrointestinal: Soft and benign, W/out hepatosplenomegaly Musculoskeletal: No clubbing, No swelling Integumentary: No rashes Neurological: Normal strength at 5/5 x4 extr Lymphatics: No axilla or inguinal lymphadenopathy - Studies Medications List Reviewed: Yes Assessment & Plan - Problems (Diagnosis) (1) ESRD (end stage renal disease) Current Visit: Yes Status: Acute (2) Hemodialysis catheter dysfunction Current Visit: Yes Status: Acute Qualifiers: Encounter type: initial encounter Qualified Code(s): T82.41XA - Breakdown (mechanical) of vascular dialysis catheter, initial encounter (3) Hypertension Current Visit: Yes Status: Acute Qualifiers: Hypertension type: essential hypertension Qualified Code(s): I10 - Esse ntial (primary) hypertension Physician Review Additional Text: Assessment Acute renal failure, likely end-stage renal disease-now on hemodialysis Decreased appetite, loss of sense of taste and smell Plan Acute renal failure, likely end-stage renal disease-now on hemodialysis: Continue with plan of care as mentioned below. Hepatitis profile is back. Chair time was obtained. Hemodialysis access catheter is no longer functioning. Surgical consult for replacement of the SD catheter Continue hemodialysis per Nephrology once hemodialysis access catheter is replaced Outpatient Hematology [id number] plan on doing bone marrow biopsy as an outpatient Blood pressure is stable and antihypertensives titrated Ambulating without difficulty Pain control GI and DVT prophylaxis Disposition : Possible DC once HD Catheter is placed and dialysis done Time Spent Managing Pts Care (In Minutes): 42
[2020-05-23] MEDS ORDERED: NS 0.9% VIAL 20 ML ONE (11:43)
--- NOTE | 2020-05-23 12:09 | P.OP ---
[employer]: NONE,NONE Preoperative diagnosis: ESRD, malfunction Tesio Postoperative diagnosis: same Primary procedure: Removal of Tesio and insertion of RIJ Tesio, Fluoroscopy Anesthesia: MAC Estimated blood loss: min Specimen: Tesio Findings: Normal Anatomy Complications: None Transferred to: Recovery Room Condition: Good
[2020-05-23] MEDS ORDERED: ESMOLOL HCL 10 ML IV ONE (12:19)
--- NOTE | 2020-05-23 13:03 | RAD REPORT ---
EXAM DESCRIPTION: RAD - Chest Single View - 05/23/2020 12:56 pm CLINICAL HISTORY: S/P Tesio Chest pain. COMPARISON: Chest Single View dated 05/14/2020; Chest Single View dated 05/13/2020; Chest Single View da charlene 09/26/2017 FINDINGS: Portable technique limits examination quality. Right-sided venous catheter has been placed with its tip in the SVC. The heart is normal in size. No pneumothorax. IMPRESSION: No postprocedure pneumothorax seen.
[2020-05-23 13:07] LABS: Potassium 4.6 mmol/L (3.5-5.1)
--- NOTE | 2020-05-23 21:48 | OP ---
Date of Procedure: 05/23/2020 Surgeon: Sharad Cheema MD Preoperative Diagnoses: End-stage renal disease, malfunctioning right IJ Tesio catheter. Postoperative Diagnoses: End-stage renal disease, malfunctioning right IJ Tesio catheter. Procedure: Removal and insertion of right IJ Tesio catheter and utilization of fluoroscopy. Estimated Blood Loss: Minimal. Specimens: Tesio catheter with a clot in the arterial limb. Finding: As above. Anesthesia: MAC. Complications: None. Disposition: The patient tolerated the procedure in stable condition, taken to Recovery in good gene ral condition. Procedure In Detail: The patient was brought to the OR and placed in supine position. MAC anesthesi a begun. The patient was prepped and draped in usual sterile fashion. Then, a guidewire passed thro ugh the Tesio catheter and the neck wound opened up and this was after Marcaine 0.5% was infiltrated locally, and then the guidewire was pulled through the neck wound and then another catheter was remov ed. The catheter was examined and there was a clot in the arterial limb, approximately 1.5 cm in trever gth, which accounted for the trouble that the catheter was having during dialysis. So, subsequently a new catheter was placed with tunneling device and then Seldinger technique used and tip of the cath eter was placed in the SVC right atrial junction under fluoroscopy. Then, catheter flushed with hepa rin and packed with heparin with excellent blood flow and then 3-0 chromic used to reapproximate subc utaneous tissue and 3-0 nylon used to secure the tube to the chest wall. Sterile dressing was applie d. The patient was awakened and taken to Recovery in good general condition. Chest x-ray has been o rdered. /MODL Voice ID: [id number] Report ID: [id number]
--- NOTE | 2020-05-24 02:28 | PN ---
Date of Progress Note: 05/23/2020 Chief Complaint: Acute on chronic kidney injury. Subjective: The patient was admitted to the hospital with acute kidney injury, light chain disease confirmed with biopsy. The patient was initiated on renal replacement therapy. She is tolerating dialysis, catheter was not working. The patient received Activase per catheter protocol. The patient is to have a dialysis catheter exchange. Review of Systems: Denies new complaints. Physical Examination: Lungs: Diminished breath sounds at bases. Heart: S1, S2. Abdomen: Soft, no rebound. Laboratory Data: Hemoglobin 8.3, WBC 14.2, platelet count is 213,000. Chemistry showed sodium 130, potassium 4.6, chloride 99, CO2 of 28, BUN 29, creatinine 7.9, calcium 8.1. Chest x-ray showed no postprocedure pneumothorax. Right-sided venous catheter has been placed with its tip in the SVC. Heart is normal in size, no hemothorax. Impression And Plan: 1. Severe hyperazotemia, acute on chronic kidney injury. The patient will need to continue dialysis 3 times per week. 2. End-stage renal disease. The patient underwent catheter replacement today. Next dialysis will be scheduled for tomorrow. 3. Hyponatremia due to volume overload dilutional. Continue p.o. fluid restriction. Monitor renal panel. Plan is to resume dialysis tomorrow and to obtain negative fluid balance. 4. Light chain disease. The patient will follow up with Hematology. 5. Hyponatremia due to kidney failure and volume overload dilutional. Continue p.o. fluid restriction, low-sodium diet. 6. Anemia. Continue YUMIKO. 7. Hypertension. Continue losartan. The patient has history of proteinuria. Continue losartan for antiproteinuric affects and for blood pressure control. JOSE/MODL Voice ID: [id number] Report ID: [id number] ABRAHAN
[2020-05-24 05:20] VITALS: O2SAT 97
[2020-05-24 08:26] LABS: Absolute Lymphocytes (CBC) 3.6 K/uL (0.7-4.9); Basophils % 1.2 % (0-1.3); Hematocrit 21.9 % (36.0-45.0); Lymphocytes % 33.4 % (15.3-44.8); MPV 7.7 fL (7.6-11.3); RBC Red Blood Cell Count 2.59 M/uL (3.86-4.86)
[2020-05-24] MEDS: LOSARTAN POTASSIUM 50 MG TABLET PO SCH (09:35)
[2020-05-24] MEDS: NEPRO SHAKE 237 ML CAN PO SCH (09:40)
[2020-05-24 09:42] LABS: AST/SGOT 22 U/L (15-37); Albumin 1.7 g/dL (3.4-5.0); Alkaline Phosphatase 45 U/L (45-117); BUN Blood Urea Nitrogen 36 mg/dL (7-18); Bicarbonate 26 mmol/L (21-32); Bilirubin Total 0.3 mg/dL (0.2-1.0); Glucose Level 76 mg/dL (74-106); Potassium 4.8 mmol/L (3.5-5.1); Protein, Total 16.4 g/dL (6.4-8.2); Sodium Level 129 mmol/L (136-145)
[2020-05-24 09:46] LABS: ALT/SGPT < 6 U/L (12-78)
[2020-05-24 10:29] LABS: Immunoglobulin A 26 (L)
[2020-05-24 10:30] LABS: Immunoglobulin G 11179 (H); Immunoglobulin M 20 (L)
[2020-05-24 10:33] LABS: Platelet Estimate ADEQ
[2020-05-24 10:34] LABS: Blood Morphology Comment NOT SEEN (NOT SEEN)
--- NOTE | 2020-05-24 11:03 | P.DS ---
Admission Date: 05/11/20 Discharge Date: 05/24/20 Primary Care Provider: Krystal Disposition: ROUTINE DISCHARGE Discharge Condition: GOOD Reason for Admission: Acute renal failure - Problems (1) ESRD (end stage renal disease) Current Visit: Yes Status: Acute (2) Hemodialysis catheter dysfunction Current Visit: Yes Status: Acute Qualifiers: Encounter type: initial encounter Qualified Code(s): T82.41XA - Breakdown (mechanical) of vascular dialysis catheter, initial encounter (3) Hypertension Current Visit: Yes Status: Acute Qualifiers: Hypertension type: essential hypertension Qualified Code(s): I10 - Essential (primary) hypertension Brief History of Present Illness: 74-year-old female with no significant past medical history presents emergency department for decreased appetite, loss of taste and smell. Patient reports that she has not been feeling well recently. Patient also reports that approximately 2 weeks ago she is prescribed antibiotic for urinary tract infection, which she follow back up with the provider the prescribed as an biotic they informed her that this was not the correct antibiotic and prescribed her a 2nd antibiotic. Patient reports that at least 1 of the antibiotics was Bactrim. She is unsure of what the 2nd one was. Patient was evaluated in the emergency department and found to be in acute renal failure with a creatinine of 10. Patient has never had any underlying chronic renal disease in the past. Other renal function from previous years were all within normal limits. ED provider wishes to admit patient for further evaluation and management. 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 Renal parameters are monitored. Nephrology was consulted. She was started on hemodialysis. Patient also was found to have anemia of chronic disease and was started on Epogen. Hematology was consulted. Plan is to do a bone marrow biopsy as outpatient Hyponatremia ,could be pseudohyponatremia due to light chain disease. Hepatitis profile is back. Chair time was obtained. Hemodialysis access catheter was no longer functioning. Surgical consulted for replacement of the HD catheter Continued hemodialysis per Nephrology once hemodialysis access catheter was replaced Outpatient Hematology [id number] the plan is doing bone marrow biopsy as an outpatient Blood pressure is stable and antihypertensives titrated Ambulating without difficulty Patient is being discharged home today in a stable condition with advice to follow up with PCP in 1 week and also with nephrology and hematology as outpatient Vital Signs/Physical Exam: Temp Pulse Resp BP Pulse Ox 97.9 F 106 H 16 131/70 97 05/24/20 08:00 05/24/20 08:00 05/24/20 08:00 05/24/20 08:00 05/24/20 08:00 General: Alert, In no apparent distress HEENT: Atraumatic, Normocephalic Neck: Supple Respiratory: Clear to auscultation bilaterally, Normal air movement Cardiovascular: Regular rate/rhythm, Normal S1 S2 Capillary refill: <2 Seconds Gastrointestinal: Soft and benign, W/out hepatosplenomegaly Musculoskeletal: No clubbing, No swelling Integumentary: No rashes, No breakdown Neurological: Normal speech, Normal strength at 5/5 x4 extr Lymphatics: No axilla or inguinal lymphadenopathy Laboratory Data at Discharge: WBC 10.8 K/uL (4.3-10.9) D 05/24/20 08:13 Hgb 7.6 g/dL (12.0-15.0) L* 05/24/20 08:13 Hct 21.9 % (36.0-45.0) L 05/24/20 08:13 Plt Count 205 K/uL (152-406) 05/24/20 08:13 PT 13.5 SECONDS (9.5-12.5) H 05/13/20 03:56 INR 1.15 05/13/20 03:56 APTT 18.1 SECONDS (24.3-36.9) L 05/13/20 03:56 Sodium 129 mmol/L (136-145) L 05/24/20 08:13 Potassium 4.8 mmol/L (3.5-5.1) 05/24/20 08:13 BUN 36 mg/dL (7-18) H 05/24/20 08:13 Creatinine 9.65 mg/dL (0.55-1.3) H* D 05/24/20 08:13 Glucose 76 mg/dL (74-106) 05/24/20 08:13 Uric Acid 11.0 mg/dL (2.6-6.0) H 05/13/20 03:56 Phosphorus 5.2 mg/dL (2.5-4.9) H 05/18/20 06:00 Magnesium 2.2 mg/dL (1.8-2.4) 05/18/20 06:00 Total Bilirubin 0.3 mg/dL (0.2-1.0) 05/24/20 08:13 AST 22 U/L (15-37) 05/24/20 08:13 ALT < 6 U/L (12-78) L 05/24/20 08:13 Alkaline Phosphatase 45 U/L (45-117) 05/24/20 08:13 Triglycerides 123 mg/dL (<150) 05/12/20 03:16 Cholesterol 108 mg/dL (<200) 05/12/20 03:16 HDL Cholesterol 26 mg/dL (40-60) L 05/12/20 03:16 Cholesterol/HDL Ratio 4.15 05/12/20 03:16 Lipase 196 U/L (73-393) 05/11/20 14:31 Home Medications: Losartan Potassium [Cozaar*] 50 mg PO DAILY #30 tablet 05/21/20 Nepro Shake [Nepro*] 237 ml PO TID #90 can 05/21/20 New Medications: Losartan Potassium [Cozaar*] 50 mg PO DAILY #30 tablet Nepro Shake [Nepro*] 237 ml PO TID #90 can Patient Discharge Instructions: OK TO DC IV AND DC HOME. FOLLOW-UP WITH PRIMARY CARE PROVIDER IN 1-2 WEEKS. FOLLOW-UP WITH ONCOLOGY & NEPHROLOGY IN THE NEXT 1. WEEK. RETURN TO THE ER IF symptoms worsen. CALL or TEXT DR. RODRIGUEZ AT [phone] IF ANY QUESTIONS REGARDING HOSPITAL STAY. PLEASE CALL THE FLOOR AT [phone] IF ANY MEDICATION OR NURSING QUESTIONS. Diet: Renal Activity: Fall precautions Followup: Kate Laureano MD [ACTIVE - CAN ADMIT] - 1 Week (Follow up next week in the Clinic) Gwendolyn Zelaya MD [COURTESY - CAN ADMIT] - Time spent managing pt's care (in minutes): 42
--- NOTE | 2020-05-24 11:51 | P.PN ---
Subjective Date of Service: 05/24/20 Primary Care Provider: Krystal Chief Complaint: Acute renal failure Subjective Pt with CKD , was admitted for worsening RFT , started on HD , pt had light chain disease Today S/P new dialysis catheter placement HD today can be discharged after HD from nephrology point of view Physical exam general: Awake and alert , NAD , obese Neck; Supple, No elevated JVD hear: RRR, normal S1,2 no murmur or rub Chest: CTAB, no rales or wheezes Abdomen: Soft , Nt Extremities No edema or ulcer A/p ESRD started on HD this admission HD today renal dose meds HTN BP controlled Anemic of chronic disease cont epogen due to CKD and light chain disease hematology on baord plan for bone marrow biopsy as an OP Hyponatremia could be pseudohyponatremia due to light chain disease Asymptomatic cont HD Physical Examination - Vital Signs Temperature: 97.9 F Blood Pressure: 131/70 Pulse: 106 Respirations: 16 Pulse Ox (%): 97 - Studies Medications List Reviewed: Yes
[2020-05-24] MEDS: EPOETIN ALFA 10,000 UNIT/ML VIAL IV SCH (12:16)
--- NOTE | 2020-05-25 12:18 | RAD REPORT ---
EXAM DESCRIPTION: RAD - Fluoroscopy <1 Hour - 05/25/2020 11:44 am FINDINGS: There were 13 portable C-arm views obtained during fluoroscopic assisted placement of a he modialysis catheter. No unexpected findings. Fluoro time was 2.4 minutes. Cumulative dose was 64.1 mGy.
[2020-05-26 12:50] VITALS: BP 128/79; TEMP 97.5
== END 2020-05-24 15:30 | disposition home or self-care (01) | DRG 674 ==
LOC: ER 12:23 → 4TH 16:47 → 2ND 05-12 14:44
PROVIDERS: ADMIT Family Medicine; ATTEND Family Medicine
PROC: 02HV33Z Insertion of Infusion Device into Superior Vena Cava, Percutaneous Approach (ICD-10-PCS; 2020-05-13)
PROC: 0T913ZX Drainage of Left Kidney, Percutaneous Approach, Diagnostic (ICD-10-PCS; 2020-05-13)
PROC: 0JH63XZ Insertion of Tunneled Vascular Access Device into Chest Subcutaneous Tissue and Fascia, Percutaneous Approach (ICD-10-PCS; principal; 2020-05-13 12:15)
PROC: 5A1D70Z Performance of Urinary Filtration, Intermittent, Less than 6 Hours Per Day (ICD-10-PCS; 2020-05-14)
PROC: 30233N1 Transfusion of Nonautologous Red Blood Cells into Peripheral Vein, Percutaneous Approach (ICD-10-PCS; 2020-05-14)
PROC: 05PY03Z Removal of Infusion Device from Upper Vein, Open Approach (ICD-10-PCS; 2020-05-23)
PROC: 02HV33Z Insertion of Infusion Device into Superior Vena Cava, Percutaneous Approach (ICD-10-PCS; 2020-05-23)
DX: N17.9 Acute kidney failure, unspecified (principal); E87.1 Hypo-osmolality and hyponatremia; K92.2 Gastrointestinal hemorrhage, unspecified; T82.41XA Breakdown (mechanical) of vascular dialysis catheter, initial encounter; I12.0 Hypertensive chronic kidney disease with stage 5 chronic kidney disease or end stage renal disease; E85.81 Light chain (AL) amyloidosis; C90.00 Multiple myeloma not having achieved remission; T36.95XA Adverse effect of unspecified systemic antibiotic, initial encounter; R31.9 Hematuria, unspecified; D63.1 Anemia in chronic kidney disease; E87.6 Hypokalemia; E83.51 Hypocalcemia; N25.81 Secondary hyperparathyroidism of renal origin; N18.6 End stage renal disease; E87.70 Fluid overload, unspecified; R43.8 Other disturbances of smell and taste; R63.0 Anorexia; Z79.899 Other long term (current) drug therapy; Z99.2 Dependence on renal dialysis; Z79.82 Long term (current) use of aspirin; Z88.1 Allergy status to other antibiotic agents; Z20.828 Contact with and (suspected) exposure to other viral communicable diseases
CPT/HCPCS: 36415; 50200; 71045; 74176; 76000; 76377; 76770; 80048; 80053; 80061; 80069; 80076; 81001; 82232; 82550; 82570; 82607; 82652; 82728; 82746; 82784; 83010; 83520; 83540; 83615; 83690; 83735; 83970; 84100; 84156; 84165; 84439; 84443; 84466; 84550; 85014; 85018; 85025; 85044; 85610; 85730; 86021; 86038; 86160; 86225; 86317; 86334; 86430; 86704; 86706; 86803; 86850; 86880; 86900; 86901; 86922; 87086; 87088; 87340; 87389; 87522; 88108; 88300; 90935; 99284; C1752; J0360; J0690; J0696; J1644; J2250; J2405; J2704; J2997; J3010; J7030; J7040; P9016; Q5105; U0002

== ENCOUNTER 2020-05-31 21:10 | Observation (INO) | payer OTHER ==
[2020-05-31 22:56] LABS: Potassium 3.5 mmol/L (3.5-5.1)
[2020-05-31 23:35] LABS: Absolute Lymphocytes (CBC) 3.9 K/uL (0.7-4.9); Basophils % 0.7 % (0-1.3); Lymphocytes % 40.8 % (15.3-44.8); MPV 7.4 fL (7.6-11.3); RBC Red Blood Cell Count 1.92 M/uL (3.86-4.86)
[2020-05-31 23:39] LABS: Hematocrit 16.1 % (36.0-45.0)
--- NOTE | 2020-05-31 23:44 | EDPHYS ---
Physician Documentation [facility] Name: Liat Velazquez Age: 74 yrs Sex: Female : 1945 Arrival Date: 05/31/2020 Time: 21:11 Bed 14 Private MD: Watson Rice R ED Physician Doni Allen HPI: 05/31 22:15 This 74 yrs old Black Female presents to ER via Ambulatory with complaints of HGB 5.9. kb 22:15 Pt reports she had dialysis yesterday and they called today to tell her her hemoglobin kb was low and she needed to come to the ER. Pt denies any symptoms . Onset: The symptoms/episode began/occurred today. The patient has not experienced similar symptoms in the past. The patient has been recently seen by a physician:. Historical: - Allergies: 21:20 No Known Allergies; ll1 - PMHx: 21:20 kidney problems; Hypertension; ll1 - PSHx: 21:19 Knee surgery; ll1 21:20 dialysis catheter right chest; ll1 - Immunization history:: Flu vaccine is up to date. - Social history:: Smoking status: Patient denies any tobacco usage or history of. Patient/guardian denies using alcohol, street drugs. ROS: 22:14 Constitutional: Negative for fever, chills, and weight loss, ENT: Negative for injury, kb pain, and discharge, Neck: Negative for injury, pain, and swelling, Cardiovascular: Negative for chest pain, palpitations, and edema, Respiratory: Negative for shortness of breath, cough, wheezing, and pleuritic chest pain, Abdomen/GI: Negative for abdominal pain, nausea, vomiting, diarrhea, and constipation, Back: Negative for injury and pain, MS/Extremity: Negative for injury and deformity, Skin: Negative for injury, rash, and discoloration, Neuro: Negative for headache, weakness, numbness, tingling, and seizure. Exam: 22:14 Constitutional: This is a well developed, well nourished patient who is awake, alert, kb and in no acute distress. Head/Face: Normocephalic, atraumatic. Chest/axilla: Normal chest wall appearance and motion. Nontender with no deformity. No lesions are appreciated. Cardiovascular: Regular rate and rhythm with a normal S1 and S2. No gallops, murmurs, or rubs. Normal PMI, no JVD. No pulse deficits. Respiratory: Lungs have equal breath sounds bilaterally, clear to auscultation and percussion. No rales, rhonchi or wheezes noted. No increased work of breathing, no retractions or nasal flaring. Abdomen/GI: Soft, non-tender, with normal bowel sounds. No distension or tympany. No guarding or rebound. No evidence of tenderness throughout. Skin: Warm, dry with normal turgor. Normal color with no rashes, no lesions, and no evidence of cellulitis. MS/ Extremity: Pulses equal, no cyanosis. Neurovascular intact. Full, normal range of motion. Neuro: Awake and alert, GCS 15, oriented to person, place, time, and situation. Cranial nerves II-XII grossly intact. Motor strength 5/5 in all extremities. Sensory grossly intact. Cerebellar exam normal. Normal gait. Vital Signs: 21:17 BP 140 / 74; Pulse 100; Resp 18; Temp 99.7; Pulse Ox 100% ; Weight 59.87 kg; Height 5 ll1 ft. 2 in. (157.48 cm); Pain 0/10; 22:30 BP 143 / 83; Pulse 93; Resp 18; Pulse Ox 100% on R/A; vc 06/01 00:39 BP 144 / 85; Pulse 91; Resp 18; Pulse Ox 100% ; vc 00:45 Temp 99.1(O); vc 05/31 21:17 Body Mass Index 24.14 (59.87 kg, 157.48 cm) ll1 MDM: 05/31 21:22 Patient medically screened. kb 22:14 Data reviewed: vital signs, nurses notes. Data interpreted: Pulse oximetry: on room air kb is 100 %. Interpretation: normal. 22:16 Data reviewed: old medical records, Last discharge summary reviewed. Pt was diagnosed kb with anemia of chronic disease, started on epogen and referred to hematology during recent admission. 23:42 Counseling: I had a detailed discussion with the patient and/or guardian regarding: the kb historical points, exam findings, and any diagnostic results supporting the discharge/admit diagnosis, lab results, the need for further work-up and treatment in the hospital. Physician consultation: Elan POP was contacted at 23:43, regarding admission, to the medical/surgical unit. patient's condition, and will see patient in ED, shortly. 05/31 21: Order name: CBC with Diff; Complete Time: 23:40 kb 05/31 21: Order name: Basic Metabolic Panel; Complete Time: 23:45 kb 05/31 21:26 Order name: IV Start; Complete Time: 22:22 kb 05/31 21: Order name: Type And Screen kb 05/31 23:56 Order name: Packed RBC Leukored EDMS Administered Medications: No medications were administered Disposition: 06/01 01:45 Co-signature as Attending Physician, Doni Allen MD. [email or web address] Disposition: 05/31/20 23:44 Hospitalization ordered by Melo Patterson for Observation. Preliminary diagnosis is Anemia, unspecified. - Bed requested for Telemetry/MedSurg (observation). - Status is Observation. vc - Condition is Stable. - Problem is new. - Symptoms are unchanged. Signatures: Dispatcher [employer] EDMS Akilah Platt, HEATHER-C REVENUE STAMP CLERK-Alisa Howe, APOORVA RN Joyce Colon RN RN vc Lewis, Lynsay, RN RN [facility] Doni Allen MD MD 7 Corrections: (The following items were deleted from the chart) 00:37 05/31 23:44 Hospitalization Ordered by Melo Patterson MD for Observation. Preliminary cg diagnosis is Anemia, unspecified. Bed requested for Telemetry/MedSurg (observation). Status is Observation. Condition is Stable. Problem is new. Symptoms are unchanged. 06/01 01:36 00:37 05/31/2020 23:44 Hospitalization Ordered by Melo Patterson MD for Observation. vc Preliminary diagnosis is Anemia, unspecified. Bed requested for Telemetry/MedSurg (observation). Status is Observation. Condition is Stable. Problem is new. Symptoms are unchanged. cg
--- NOTE | 2020-05-31 23:44 | ER ---
Nurse's Notes [facility] Name: Liat Velazquez Age: 74 yrs Sex: Female : 1945 Arrival Date: 05/31/2020 Time: 21:11 Bed 14 Private MD: Watson Rice R Diagnosis: Anemia, unspecified Presentation: 05/30 21:30 Initial Sepsis Screen: Does the patient have a suspected source of infection? No. vc Patient's initial sepsis screen is negative. 05/31 21:17 Chief complaint: Patient states: Released last week from our hospital for kidney ll1 problems. Had dialysis yesterday. HGB 5.9. Was called and told to come to ED for eval. Coronavirus screen: Client denies travel out of the [place] in the last 14 days. At this time, the client does not indicate any symptoms associated with coronavirus-19. The client reports previous COVID testing was negative. Ebola Screen: Patient denies travel to an Ebola-affected area in the 21 days before illness onset. Initial Sepsis Screen: Does the patient meet any 2 criteria? No. Patient's initial sepsis screen is negative. Risk Assessment: Do you want to hurt yourself or someone else? Patient reports no desire to harm self or others. Onset of symptoms was May 31, 2020. 21:17 Method Of Arrival: Ambulatory ll1 21:17 Acuity: REY 3 ll1 Historical: - Allergies: 21:20 No Known Allergies; ll1 - PMHx: 21:20 kidney problems; Hypertension; ll1 - PSHx: 21:19 Knee surgery; ll1 21:20 dialysis catheter right chest; ll1 - Immunization history:: Flu vaccine is up to date. - Social history:: Smoking status: Patient denies any tobacco usage or history of. Patient/guardian denies using alcohol, street drugs. Screenin:30 Abuse screen: Denies threats or abuse. Nutritional screening: No deficits noted. vc Tuberculosis screening: No symptoms or risk factors identified. Fall Risk None identified. Assessment: 21:30 General: Appears in no apparent distress. comfortable, well groomed, Behavior is calm, vc cooperative, appropriate for age. Pain: Denies pain. Neuro: Level of Consciousness is awake, obeys commands, lethargic, Oriented to person, place, time, situation, Appropriate for age. Cardiovascular: Capillary refill < 3 seconds Patient's skin is warm and dry. Respiratory: Airway is patent Respiratory effort is even, unlabored, Respiratory pattern is regular, symmetrical. GI: No signs and/or symptoms were reported involving the gastrointestinal system. : No signs and/or symptoms were reported regarding the genitourinary system. Derm: Skin temperature is warm. Musculoskeletal:. 22:30 Reassessment: Patient appears in no apparent distress at this time. Patient and/or vc family updated on plan of care and expected duration. Pain level reassessed. patient resting with eyes closed, respirations unlabored. 23:30 Reassessment: Patient appears in no apparent distress at this time. Patient and/or vc family updated on plan of care and expected duration. Pain level reassessed. Patient is alert, oriented x 3, equal unlabored respirations, skin warm/dry/pink. Patient states feeling better. 06/01 00:39 Reassessment: Patient and/or family updated on plan of care and expected duration. Pain vc level reassessed. blanket given to patient Patient denies pain at this time. 00:53 Reassessment: Attempted to give report to receiving nurse. Sonya Dimas RN to call me vc back for report. Vital Signs: 05/31 21:17 BP 140 / 74; Pulse 100; Resp 18; Temp 99.7; Pulse Ox 100% ; Weight 59.87 kg; Height 5 ll1 ft. 2 in. (157.48 cm); Pain 0/10; 22:30 BP 143 / 83; Pulse 93; Resp 18; Pulse Ox 100% on R/A; vc 06/01 00:39 BP 144 / 85; Pulse 91; Resp 18; Pulse Ox 100% ; vc 00:45 Temp 99.1(O); vc 05/31 21:17 Body Mass Index 24.14 (59.87 kg, 157.48 cm) ll1 ED Course: 05/31 21:11 Patient arrived in ED. am2 21:12 Watson Rice MD is Private Physician. am2 21:19 Triage completed. ll1 21:21 Arm band placed on Patient placed in an exam room, on a stretcher. ll1 21:22 [facility]ilah Platt [facility]C [facility] kb 21:22 Doni Allen MD is Attending Physician. kb 21:30 Patient has correct armband on for positive identification. Bed in low position. Call vc light in reach. Side rails up X2. Pulse ox on. NIBP on. 21:34 Joyce Coats, RN is Primary Nurse. vc 22:21 Inserted saline lock: 22 gauge in right antecubital area, using aseptic technique. lp1 23:42 Notified Nurse Practitioner and/or Physician Fish Warden of a critical lab result(s), Hgb lp1 5.5, Hct 16.1, Creatinine 5.79. 23:44 Melo Patterson MD is Hospitalizing Provider. kb 06/01 01:12 No provider procedures requiring assistance completed. Patient admitted, IV remains in vc place. Administered Medications: No medications were administered Outcome: 05/31 23:44 Decision to Hospitalize by Provider. kb 06/01 01:12 Admitted to Med/surg accompanied by nurse, via wheelchair, room 230, Report called to vc Sonya Dimas RN Condition: good Instructed on the need for admit. 01:36 Patient left the ED. vc Signatures: Akilah Platt, VISCOSITY WORKER-C VISCOSITY WORKER-Ckb Julia Ham, RN RN lp1 Shana Cardenas am2 Joyce Coats, RN RN Nicola Torre, RN RN ll1
--- NOTE | 2020-06-01 00:23 | P.HP ---
Certification for Inpatient Patient admitted to: Observation With expected LOS: <2 Midnights Patient will require the following post-hospital care: None Practitioner: I am a practitioner with admitting privileges, knowledge of patient current condition, hospital course, and medical plan of care. Services: Services provided to patient in accordance with Admission requirements found in Title 42 Section 412.3 of the Code of Federal Regulations <AshishloraElan fall - Last Filed: 06/01/20 00:17> Patient History Date of Service: 06/01/20 Primary Care Provider: Dr Rice Reason for admission: Acute anemia History of Present Illness: 74-year-old female with a past medical history of hypertension, multiple myeloma, chronic anemia and recent a diagnosis of end-stage renal disease currently on dialysis presents to the emergency room complaining of low hemoglobin levels. Patient was dialyzed yesterday and was called today to come to the emergency room because her hemoglobin was 5.9. In the emergency room patient is alert and oriented x3, in no distress. ER blood work shows a hemoglobin of 5.5 with a hematocrit of 16.1, creatinine of 5.79. Patient is scheduled for dialysis tomorrow morning. Patient is being followed by her comb winder Dr. Daniel and be worked up for multiple myeloma. Patient will be placed in observation and transfused 2 units of PRBCs. - Past Medical/Surgical History Diabetic: No -: hypertension -: End-stage renal disease on dialysis -: Multiple myeloma -: Anemia -: sx on left broken knee cap -: Rt ankle sx Psychosocial/ Personal History: Patient lives at home with her family. - Family History Mother -: Diabetes Father -: Hypertension, GI disease, Cancer - Social History Smoking Status: Never smoker Alcohol use: No CD- Drugs: No Caffeine use: Yes Place of Residence: Home <Elan Martinez - Last Filed: 06/01/20 00:17> Date of Service: 06/01/20 <Gil Butler - Last Filed: 06/01/20 15:41> Allergies No Known Allergies Allergy (Verified 06/01/20 05:12) Home Medications: Losartan Potassium [Cozaar*] 50 mg PO DAILY #30 tablet 05/21/20 Nepro Shake [Nepro*] 237 ml PO TID #90 can 05/21/20 Review of Systems General: As per HPI Eyes: Unremarkable ENT: Unremarkable Respiratory: Unremarkable Cardiovascular: Unremarkable Gastrointestinal: Unremarkable Genitourinary: Unremarkable Musculoskeletal: Unremarkable Integumentary: Unremarkable Neurological: Unremarkable Lymphatics: Unremarkable <Elan Martinez - Last Filed: 06/01/20 00:17> Physical Examination - Vital Signs Temperature: 99.7 F Blood Pressure: 140/74 Pulse: 93 Respirations: 18 Pulse Ox (%): 100 (RA) - Physical Exam General: Alert, In no apparent distress, Oriented x3 HEENT: Atraumatic, Normocephalic, PERRLA, Mucous membr. moist/pink Neck: Supple, Other (Trachea midline) Respiratory: Clear to auscultation bilaterally, Normal air movement Cardiovascular: No edema, Normal pulses, Regular rate/rhythm, Normal S1 S2 Gastrointestinal: Normal bowel sounds, Soft and benign, Non-distended Musculoskeletal: No clubbing, No swelling, No contractures, No erythema, Other (Dialysis catheter right shoulder) Integumentary: No rashes, No breakdown, No significant lesion Neurological: Normal gait, Normal speech, Normal strength at 5/5 x4 extr, Normal tone - Studies Laboratory Data (last 24 hrs) 05/31/20 22:51: WBC 9.5, Hgb 5.5 L*, Hct 16.1 L* D, Plt Count 191 05/31/20 22:00: Sodium 128 L, Potassium 3.5, BUN 18, Creatinine 5.79 H*, Glucose 89 <Elan Martinez - Last Filed: 06/01/20 00:17> - Studies Laboratory Data (last 24 hrs) 05/31/20 22:51: WBC 9.5, Hgb 5.5 L*, Hct 16.1 L* D, Plt Count 191 05/31/20 22:00: Sodium 128 L, Potassium 3.5, BUN 18, Creatinine 5.79 H*, Glucose 89 <Gil Butler - Last Filed: 06/01/20 15:41> Assessment and Plan - Plan Impression: Acute anemia complicated by history of multiple myeloma: End-stage renal disease on dialysis: Essential hypertension: Plan: Acute anemia complicated by history of multiple myeloma: On admission patient noted to have a hemoglobin of 5.5 which is a drop from yesterday's blood work done by her dialysis center which showed a hemoglobin of 5.9. Her current hematocrit is 16.1. Patient be transfused 2 units PRBCs. She sees Dr. Daniel her comb winder for multiple myeloma. End-stage renal disease on dialysis: Currently on dialysis. Scheduled for dialysis tomorrow. This is a recent diagnosis for this patient. Only 2nd time she will be dialyzed. Essential hypertension: Stable. Will order hydralazine 10 mg q.4 hr p.r.n. for systolic blood pressure greater than 160 and diastolic blood pressure greater than 100. Discharge Plan: Home Plan to discharge in: 48 Hours - Advance Directives Does patient have a Living Will: No Does patient have a Durable POA for Healthcare: No - Code Status/Comfort Care Code Status Assessed: Yes Time Spent Managing Pts Care (In Minutes): 55 <Elan Martinez - Last Filed: 06/01/20 00:17> Physician Review Additional Text: Patient seen, plan discussed with Elan Martinez and agree with plan as outlined above. With the following exceptions: Will check post-transfusion H&H. Anemia likely in setting of ESRD however dropped by nearly 2.5-3 over the past week. Patient reports no bleeding from anywhere, had BM this morning and no signs of h ematochezia/melena. There is concern for occult bleeding, will check hemoccult, trend H&H. Anticipate discharge if H&H stable for ~24hrs <Gil Butler - Last Filed: 06/01/20 15:41>
[2020-06-01] MEDS ORDERED: HYDRALAZINE HCL 20 MG/ML VIAL IV PRN (01:25)
[2020-06-01] MEDS: HEPARIN 5000 UNIT/ML 1 ML VIAL SQ SCH ×4 (02:43→17:10)
[2020-06-01] MEDS ORDERED: NA CHLORIDE 0.9% 500 ML ONE (03:13)
[2020-06-01] MEDS ORDERED: PNEUMOCOCCAL VACCINE 0.5 ML IMVAC ONE (08:00)
[2020-06-01 09:27] LABS: Absolute Lymphocytes (CBC) 3.1 K/uL (0.7-4.9); Basophils % 1.1 % (0-1.3); Hematocrit 24.1 % (36.0-45.0); Lymphocytes % 36.7 % (15.3-44.8); MPV 7.2 fL (7.6-11.3)
[2020-06-01 09:31] LABS: RBC Red Blood Cell Count 2.76 M/uL (3.86-4.86)
[2020-06-01 09:41] LABS: Potassium 3.4 mmol/L (3.5-5.1)
[2020-06-01 10:02] LABS: Blood Morphology Comment NOTED (NOT SEEN); Platelet Estimate ADEQ; Rouleau NOTED
[2020-06-01] MEDS ORDERED: EPOETIN ALFA 10,000 UNIT/ML VIAL IV SCH (15:15)
--- NOTE | 2020-06-01 15:44 | P.PN ---
Subjective Date of Service: 06/01/20 Primary Care Provider: Dr Rice Chief Complaint: Acute on chronic anemia Patient received 2uPRBCs overnight, reports feeling significantly better, feels back to baseline. Reports no bleeding from anywhere (stool, urine are "normal"). She had BM earlier this morning and didn't note any dark or bright red blood She is without any complaints this morning. Denies chest pain, SOB, dysuria, abdominal pain, numbness/tingling Review of Systems 10-point ROS is otherwise unremarkable Physical Examination - Vital Signs Temperature: 97.6 F Blood Pressure: 145/75 Pulse: 92 Respirations: 16 Pulse Ox (%): 98 - Physical Exam General: Alert, In no apparent distress HEENT: Mucous membr. moist/pink Neck: Supple, JVD not distended Respiratory: Clear to auscultation bilaterally, Normal air movement Cardiovascular: Regular rate/rhythm, Normal S1 S2 Gastrointestinal: Normal bowel sounds, Soft and benign, Non-distended, No tenderness Musculoskeletal: No erythema, No tenderness Integumentary: No rashes, No breakdown Neurological: Normal speech - Studies Laboratory Data (last 24 hrs) 05/31/20 22:51: WBC 9.5, Hgb 5.5 L*, Hct 16.1 L* D, Plt Count 191 05/31/20 22:00: Sodium 128 L, Potassium 3.5, BUN 18, Creatinine 5.79 H*, Glucose 89 Assessment & Plan Physician Review Additional Text: Acute on chronic anemia complicated by history of multiple myeloma: -On admission patient noted to have a hemoglobin of 5.5 which is a drop from yesterday's blood work done by her dialysis center which showed a hemoglobin of 5.9. and was >8 ~1 week ago -s/p 2u PRBcs, feeling much better -unclear if this is due to chronic dz (ESRD), ?MM, however Hgb has dropped nearly 3 in the past week. Concern for occult bleed -will check hemoccult, trend H&H q12, monitor closely End-stage renal disease on dialysis: -will need dialysis today since she can't make scheduled appointment Essential hypertension: Stable. hydralazine 10 mg q.4 hr p.r.n. for systolic blood pressure greater than 160 and diastolic blood pressure greater than 100. Anticipate discharge if H&H stable for ~24hrs Time Spent Managing Pts Care (In Minutes): 35
[2020-06-01] MEDS ORDERED: IRON SUCROSE 100 MG in NA CHLORIDE 0.9% 100 ML IV SCH (16:00)
[2020-06-01] MEDS ORDERED: IRON SUCROSE 50 MG in NA CHLORIDE 0.9% 100 ML IV SCH (16:00)
--- NOTE | 2020-06-01 19:30 | CON ---
Date of Consultation: 06/01/2020 Additional Consulting Physician: Dr. Ptaterson. Reason For Consultation: Elevated BUN and creatinine, end-stage renal disease. 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 Labs show hemoglobin down to 5.5. For that reason, the patient was referred to the emergency room. The patient received 2 units of blood transfusion. Over the night, the patient denied any chest pain, any nausea, any vomiting. No hematochezia. No hemoptysis. No hematuria. The patient is feeling better. No abdominal pain. Past Medical History: Includes, 1. Light chain disease. 2. Hypertension. 3. Recurrent urinary tract infection. 4. Acute kidney injury, dialysis dependent. Allergies: NO KNOWN DRUG ALLERGIES. Home Medications: Include, 1. Epogen. 2. Flor-Mihai. 3. Nepro. 4. Losartan 50 mg. Social History: Lives with family. Denies smoking. Denies drinking. Denies drug abuse. Past Surgical History: Includes knee surgery, ankle surgery, PermCath placement and exchange. Family History: Positive for diabetes. Social History: As above. Review of Systems: Head and Neck: No red eye. No ear pain. GI: No nausea. No vomiting. : No polyuria. No dysuria. No hematuria. SKID STRAPPER: No vaginal discharge. Respiratory: No hemoptysis. No shortness of breath. Cardiovascular: No chest pain. Endocrine: No polydipsia. Skin: No rash. Neuro: Generalized fatigue. Musculoskeletal: Low back pain. Physical Examination: Vital Signs: Blood pressure 145/75, pulse of 92, afebrile. Chest: Clear to auscultation. Heart: S1, S2. Systolic murmur. Abdomen: Soft, nontender. Extremities: No edema. Neurologic: Alert, oriented, nonfocal. Laboratory Data: WBC 9.5, H and H 5.5/16.1. After transfusion, H and H 8.5/24.1. Sodium 126, potassium 3.4, bicarb 30, BUN 20, creatinine 6.4, calcium 7.9. Current Assessment And Plan: 1. Acute kidney injury, dialysis dependent. We will continue dialysis 3 times a week, Saturday, Saturday, Saturday. We will arrange for dialysis today. 2. 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 We will start the patient on YUMIKO and we will continue the patient on IV iron. 3. Hyponatremia, hypokalemia. The patient is going to be dialyzed on high sodium and high potassium bath. We will follow up. 4. Hypertension. Continue losartan. 5. 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 Continue losartan. Waiting for outpatient workup with Hematology. time spent for face to face care , placing order and dicussing with staff, other case consultant and patient/ patient family 65 min TOMASZ Voice ID: [id number] Report ID: [id number] [id number]
[2020-06-02 07:03] VITALS: BMI 22.1
[2020-06-02 07:08] LABS: Absolute Lymphocytes (CBC) 3.1 K/uL (0.7-4.9); Basophils % 0.8 % (0-1.3); Hematocrit 21.6 % (36.0-45.0); Lymphocytes % 37.2 % (15.3-44.8); RBC Red Blood Cell Count 2.47 M/uL (3.86-4.86)
[2020-06-02 07:21] LABS: Potassium 3.8 mmol/L (3.5-5.1)
[2020-06-02] MEDS ORDERED: LOSARTAN POTASSIUM 50 MG TABLET PO SCH (09:00)
[2020-06-02 15:06] VITALS: O2SAT 98
--- NOTE | 2020-06-02 17:01 | PN ---
Date of Progress Note: 06/02/2020 Subjective: The patient is more awake today. The patient has no shortness of breath. Objective: Vital Signs: Blood pressure 151/84, pulse of 87, afebrile. Chest: Clear to auscultation. Heart: S1, S2. Regular. Systolic murmur. Abdomen: Soft, nontender. Extremities: No edema. Neurological: Alert, oriented x3. No focal. Laboratory Data: WBC 8.4, H and H 7.4/21.6. Sodium 128, potassium 3.8, bicarb 26, BUN 29, creatinine 7.6, calcium of 8. Assessment And Plan: 1. 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 We will arrange for dialysis today and we will transfuse 1 unit. 2. 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 3. Multiple myeloma/chronic kidney disease. Continue YUMIKO. Plan for transfusion today. 4. Hypokalemia and hyponatremia, going to be corrected on dialysis. 5. Nephrotic range of proteinuria. Continue losartan. The patient is cleared from the renal standpoint for discharge planning after dialysis. time spent for face to face care , placing order and dicussing with staff, other interventional sale consultant and patient/ patient family 35 min TOMAZS Voice ID: [id number] Report ID: [id number] MTDD
--- NOTE | 2020-06-02 17:44 | P.DS ---
Admission Date: 06/01/20 Discharge Date: 06/02/20 Primary Care Provider: Dr Rice Disposition: ROUTINE DISCHARGE Discharge Condition: GOOD Reason for Admission: Acute on chronic anemia Consultations: nephrology - Dr. Denson Procedures: Diagnoses Acute on chronic anemia complicated by history of multiple myeloma End-stage renal disease on dialysis Essential hypertension Brief History of Present Illness: 74-year-old female, PMH: hypertension, multiple myeloma, chronic anemia and recent a diagnosis of end-stage renal disease currently on dialysis presented to the emergency room complaining of low hemoglobin levels. Patient was dialyzed yesterday and was called today to come to the emergency room because her hemoglobin was 5.9. One week prior it was ~8.4 and there was concern for occult bleeding. In the emergency room patient was alert and oriented x3, in no distress. ER blood work shows a hemoglobin of 5.5 with a hematocrit of 16.1, creatinine of 5.79. Hospital Course: Patient was transfused 2u PRBC with good response (Hgb: 5.5 -> 8.5), however the following morning it was down to 7.5. There was no evidence of bleeding, her stool was negative for occult bleeding as well. Her hgb dropped to 7.4 the following day and underwent dialysis. She was given 1 uPRBC with dialysis and Hgb went up to 9.0. She was feeling well, never symptomatic and was discharged home to have a repeat H/H next week, follow up with PCP and dialysis Vital Signs/Physical Exam: Temp Pulse Resp BP Pulse Ox 98.1 F 97 H 18 139/83 99 06/02/20 12:00 06/02/20 12:00 06/02/20 12:00 06/02/20 12:06/02/20 12:00 General: Alert, In no apparent distress HEENT: Mucous membr. moist/pink, Sclerae nonicteric Neck: JVD not distended Respiratory: Clear to auscultation bilaterally, Normal air movement Cardiovascular: Regular rate/rhythm, Normal S1 S2 Gastrointestinal: Normal bowel sounds, Soft and benign, Non-distended, No tenderness Musculoskeletal: No tenderness Integumentary: No rashes, No erythema Neurological: Normal speech, Normal affect Laboratory Data at Discharge: WBC 8.4 K/uL (4.3-10.9) 06/02/20 06:44 Hgb 9.0 g/dL (12.0-15.0) L 06/02/20 17:10 Hct 21.6 % (36.0-45.0) L 06/02/20 06:44 Plt Count 194 K/uL (152-406) 06/02/20 06:44 Sodium 128 mmol/L (136-145) L 06/02/20 06:44 Potassium 3.8 mmol/L (3.5-5.1) 06/02/20 06:44 BUN 29 mg/dL (7-18) H 06/02/20 06:44 Creatinine 7.63 mg/dL (0.55-1.3) H* D 06/02/20 06:44 Glucose 89 mg/dL (74-106) 06/02/20 06:44 Home Medications: Losartan Potassium [Cozaar*] 50 mg PO DAILY #30 tablet 05/21/20 Nepro Shake [Nepro*] 237 ml PO TID #90 can 05/21/20 Patient Discharge Instructions: follow up with PCP and nephrology within 1 week Diet: Renal Activity: Ad genaro Followup: Eb Denson MD [ACTIVE - CAN ADMIT] - Kate Laureano MD [ACTIVE - CAN ADMIT] -
[2020-06-02 18:03] VITALS: BP 132/78; TEMP 97.8
== END 2020-06-02 19:30 | disposition home or self-care (01) ==
LOC: ER 21:10 → ERHOLD 06-01 00:02 → 2ND 06-01 01:12
PROVIDERS: ADMIT Hospitalist; ATTEND Hospitalist
DX: C90.00 Multiple myeloma not having achieved remission (principal); D63.0 Anemia in neoplastic disease; D63.1 Anemia in chronic kidney disease; I12.0 Hypertensive chronic kidney disease with stage 5 chronic kidney disease or end stage renal disease; N18.6 End stage renal disease; E85.81 Light chain (AL) amyloidosis; E87.1 Hypo-osmolality and hyponatremia; E87.6 Hypokalemia; R80.8 Other proteinuria; Z20.828 Contact with and (suspected) exposure to other viral communicable diseases; Z99.2 Dependence on renal dialysis; Z79.899 Other long term (current) drug therapy; Z87.440 Personal history of urinary (tract) infections; Z83.3 Family history of diabetes mellitus
CPT/HCPCS: 85025 ×3; 80048 ×3; 36415 ×2; 86900; 86880; 86850 ×2; 83615; 82274; 86901; 85018 ×2; 83010; 90935; 99285; U0002; J1644 ×3; Q5105; G0378 ×2; P9016 ×2; J7040

== ENCOUNTER 2020-06-27 13:17 | Inpatient (IN) | payer OTHER ==
--- NOTE | 2020-06-27 13:57 | RAD REPORT ---
EXAM DESCRIPTION: CT - Head Brain Wo Cont - 06/27/2020 1:48 pm CLINICAL HISTORY: MENTAL STATUS CHANGE, fall, altered mental status COMPARISON: No comparisons TECHNIQUE: Axial 5 mm thick images of the head were obtained without IV contrast. All CT scans are performed using dose optimization technique as appropriate and may include automated exposure control or mA/KV adjustment according to patient size. FINDINGS: No intracranial hemorrhage, mass, edema or shift of mid-line structures. No acute infarcti on changes seen. No abnormal extra-axial fluid collections. Minimal atrophy changes. Ventricles are n ormal. No significant chronic ischemic changes identifiable. Mastoid air cells and visualized portions of the paranasal sinuses are clear. No acute bony findings. IMPRESSION: Negative non-contrast CT head examination for acute findings.
[2020-06-27 14:23] LABS: Protime INR 1.15
[2020-06-27 14:30] LABS: Absolute Lymphocytes (CBC) 4.1 K/uL (0.7-4.9); Basophils % 0.3 % (0-1.3); Lymphocytes % 34.6 % (15.3-44.8); MPV 7.3 fL (7.6-11.3); RBC Red Blood Cell Count 2.22 M/uL (3.86-4.86)
[2020-06-27 14:32] LABS: Hematocrit 19.1 % (36.0-45.0)
[2020-06-27 15:09] LABS: AST/SGOT 19 U/L (15-37); Albumin 1.7 g/dL (3.4-5.0); Alkaline Phosphatase 46 U/L (45-117); BUN Blood Urea Nitrogen 47 mg/dL (7-18); Bicarbonate 25 mmol/L (21-32); Bilirubin Direct 0.1 mg/dL (0-0.2); Bilirubin Total 0.3 mg/dL (0.2-1.0); Glucose Level 102 mg/dL (74-106); Magnesium 1.8 mg/dL (1.8-2.4); NT PRO-BNP 11709 pg/mL (<125); Sodium Level 127 mmol/L (136-145); Troponin (Emerg Dept Use Only) 0.04 ng/mL (0.0-0.045)
[2020-06-27 15:10] LABS: ALT/SGPT < 6 U/L (12-78); Protein, Total 15.7 g/dL (6.4-8.2)
[2020-06-27 15:14] LABS: Urine Blood 2+ (NEG); Urine Glucose NEGATIVE (NEG); Urine Protein 3+ (NEG); Urine pH 7.5 (5.0-7.0)
[2020-06-27 15:20] LABS: Platelet Estimate ADEQ
[2020-06-27 15:21] LABS: Blood Morphology Comment NOTED (NOT SEEN); Polychromasia 1+; Rouleau NOTED
--- NOTE | 2020-06-27 15:33 | RAD REPORT ---
EXAM DESCRIPTION: RAD - Chest Single View - 06/27/2020 2:18 pm CLINICAL HISTORY: AMS COMPARISON: Portable May 23 TECHNIQUE: AP portable chest image was obtained 06/27/2020 2:18 pm . FINDINGS: Interstitial and patchy alveolar opacities are present. Right lung field is not clearly di fferent. There does appear to be new patchy mid and lower left lung field opacification. Heart size i s upper normal, accentuated by portable low lung volume exam. Right-sided dialysis catheter is in romana ce. No measurable pleural effusion and no pneumothorax. No acute bony abnormality seen. No acute aort ic findings suspected. IMPRESSION: Suspected patchy infiltrate in the mid and lower left lung field superimposed on a mild edema.
[2020-06-27 15:50] LABS: Urine Amorphous Sediment 3+ /HPF (NONE SEEN); Urine Bacteria 20-50 /HPF (<20); Urine Culture Reflex Order REFLEXED; Urine Mucus 3+ /HPF (NONE SEEN)
--- NOTE | 2020-06-27 16:03 | ER ---
Nurse's Notes [facility] Name: Liat Velazquez Age: 74 yrs Sex: Female : 1945 Arrival Date: 06/27/2020 Time: 13:21 Bed 6 Private MD: Watson Rice R Diagnosis: Fall on same level, unspecified;Weakness;Abrasion of other part of head-upper lip;Pneumonia, unspecified organism;Urinary tract infection, site not specified;End stage renal disease;Altered mental status, unspecified Presentation: 06/27 13:47 Chief complaint: Patient's son or daughter states: woke up at 4 am and was gagging and iw was sweaty, they got her back to bed, then pt fell at 8 am while using a walker, fell onto right side, appeared to have some right sided weakness, went to Dr. Daniel's office for labs and was told to be evaluated in ER, pt recently diagnosed with Multiple Myeloma and started dialysis last month, pt able to move all 4 extremities equally at this time. Coronavirus screen: At this time, the client does not indicate any symptoms associated with coronavirus-19. Ebola Screen: Patient negative for fever greater than or equal to 101.5 degrees Fahrenheit, and additional compatible Ebola Virus Disease symptoms Patient denies exposure to infectious person. Patient denies travel to an Ebola-affected area in the 21 days before illness onset. No symptoms or risks identified at this time. Initial Sepsis Screen: Does the patient meet any 2 criteria? No. Patient's initial sepsis screen is negative. Does the patient have a suspected source of infection? No. Patient's initial sepsis screen is negative. Risk Assessment: Do you want to hurt yourself or someone else? Patient reports no desire to harm self or others. Onset of symptoms was June 27, 2020. 13:47 Method Of Arrival: Wheelchair iw 13:47 Acuity: REY 3 iw Triage Assessment: 14:00 General: Appears in no apparent distress. comfortable, Behavior is calm, cooperative. bp Pain: Denies pain. EENT: No deficits noted. Neuro: AT BASELINE. Cardiovascular: No deficits noted. Respiratory: No deficits noted. GI: No signs and/or symptoms were reported involving the gastrointestinal system. : No signs and/or symptoms were reported regarding the genitourinary system. Derm: No deficits noted. Musculoskeletal: No deficits noted. Historical: - Allergies: 13:57 No Known Allergies; iw - Home Meds: 13:57 Velcade 3.5 mg injection solr weekly [Active]; Xgeva 120 mg/1.7 mL (70 mg/mL) iw subcutaneous soln 1.7 mL every 4 wks [Active]; Dexamethasone Oral once daily [Active]; Ondansetron Oral as needed [Active]; valacyclovir 500 mg Oral tab once daily [Active]; losartan 50 mg oral tab 1 tab once daily [Active]; Revlimid 5 mg for 14 days and 7 days off oral cap [Active]; epoetin fabrice injection injection as needed [Active]; - PMHx: 13:57 Hypertension; kidney problems; Dialysis; Multiple Myeloma; iw - Immunization history:: Adult Immunizations. - Social history:: Smoking status: Patient denies any tobacco usage or history of. Screenin:00 Abuse screen: Denies threats or abuse. Denies injuries from another. Nutritional bp screening: No deficits noted. Tuberculosis screening: No symptoms or risk factors identified. Fall Risk Fall in past 12 months (25 points). No secondary diagnosis (0 pts). IV access (20 points). Ambulatory Aid- None/Bed Rest/Nurse Assist (0 pts). Gait- Normal/Bed Rest/Wheelchair (0 pts) Mental Status- Overestimates/Forgets Limitations (15 pts.). Total Jeter Fall Scale indicates High Risk Score (45 or more points). Fall prevention measures have been instituted. Side Rails Up X 2 Placed Close to Nursing Station Frequent Obs/Assessments Occuring Family Present and informed to notify staff if the need to leave the bedside As available patient and family educated on Fall Prevention Program and Strategies. Assessment: 13:45 General: SEE TRIAGE NOTE. bp 13:50 Reassessment: PT TO CT WITH BATTERY TECHNICIAN. bp 15:00 Reassessment: ALL CURRENT ORDERS COMPLETED. RESULTS PENDING. bp 15:45 Reassessment: ADDITIONAL ORDERS PLACED, ST ON MONITOR. bp 16:56 Reassessment: ADMIT INITIATED, MRI PENDING. bp 17:19 Reassessment: PT TO MRI, ADMIT IN PROCESS. bp 18:15 Reassessment: PT RETURNED FROM MRI. LAB CONTACTED FOR PHLEBOTOMY. bp 18:50 Reassessment: PHLEBOTOMY AT B/S FOR T\T\S. bp Vital Signs: 13:47 BP 162 / 85; Pulse 103; Resp 16 S; Temp 98.2(TE); Pulse Ox 100% on R/A; Pain 0/10; iw 14:58 BP 159 / 80; Pulse 100; Resp 16; Pulse Ox 100% ; bp 15:45 BP 146 / 84; Pulse 109; Resp 16; Pulse Ox 97% ; bp 16:55 BP 168 / 87; Pulse 109; Resp 20; Pulse Ox 98% ; bp 18:15 BP 167 / 105; Pulse 110; Resp 17; Pulse Ox 97% ; bp 19:24 BP 175 / 98; Pulse 107; Resp 18; Temp 98.5; Pulse Ox 99% ; rv ED Course: 13:21 Patient arrived in ED. mr 13:21 Watson Rice MD is Private Physician. mr 13:24 [facility] pm1 13:24 Kevin Butler MD is Attending Physician. pm1 13:36 Shahriar Marie, APOORVA is Primary Nurse. bp 13:47 CT Head Brain wo Cont In Process Unspecified. EDMS 13:51 Triage completed. iw 13:57 Arm band placed on. iw 14:00 Patient has correct armband on for positive identification. Bed in low position. Call bp light in reach. Side rails up X2. Adult w/ patient. 14:05 Inserted saline lock: 24 gauge in right hand, using aseptic technique. Blood collected. bp 14:18 XRAY Chest (1 view) In Process Unspecified. EDMS 14:40 EKG done, by ED staff, reviewed by Kevin Rhodes NP. dh3 14:50 Straight cath inserted, using sterile technique, 14 Fr. Specimen obtained. Returned dh3 cloudy urine. Patient tolerated well. 16:02 Kevin Butler MD is Hospitalizing Provider. pm1 16:02 Hospitalizing Provider role handed off by Kevin Butler MD pm1 16:02 Gil Butler MD is Hospitalizing Provider. pm1 16:32 Melo Patterson MD is Hospitalizing Provider. pm1 19:24 Inserted saline lock: 18 gauge in right forearm, using aseptic technique. rv 20:10 No provider procedures requiring assistance completed. IV is patent, with fluids rv infusing freely, with good blood return, Patient admitted, IV remains in place. Administered Medications: 16:00 Drug: Rocephin 1 grams Route: IV; Rate: calculated rate; Site: right hand; bp 18:51 Follow up: IV Status: Completed infusion; IV Intake: 50ml bp Intake: 18:51 IV: 50ml; Total: 50ml. bp Outcome: 16:02 Decision to Hospitalize by Provider. pm1 20:06 Patient left the ED. mg2 20:10 Admitted to Med/surg accompanied by tech, via stretcher, room 213, Other SBAR, CONSENT, rv ORDER SHEET Report called to GLORIA GUERIN 20:10 Condition: good 20:10 Instructed on the need for admit. Signatures: Dispatcher [employer] GÉNESISOR Swati Cassidy Irene, RN RN iw Kevin Rhodes, OIL PIPELINE DISPATCHER OIL PIPELINE DISPATCHER pm1 Elizabeth Preciado 3 Shahriar Marie RN RN bp Raúl Downs RN RN mg2 Jaret Dodd RN RN rv Corrections: (The following items were deleted from the chart) 15:02 13:45 Reassessment: PT TO CT WITH BATTERY TECHNICIAN bp bp
--- NOTE | 2020-06-27 16:03 | EDPHYS ---
Physician Documentation [facility] Name: Liat Velazquez Age: 74 yrs Sex: Female : 1945 Arrival Date: 06/27/2020 Time: 13: Bed 6 Private MD: Watson Rice R ED Physician Kevin Butler HPI: 06/27 13:39 This 74 yrs old Black Female presents to ER via Wheelchair with complaints of Altered pm1 Mental Status, Fall Injury. 13:39 The patient presents with decreased mental status. Onset: The symptoms/episode pm1 began/occurred this morning. Possible causes: unknown. Associated signs and symptoms: Pertinent positives: nausea, Pertinent negatives: chest pain, diarrhea, shortness of breath, vomiting. Patient's baseline: Neuro: alert and fully oriented, Motor: no deficits, Ambulation: walks with assist only, uses walker, Speech: normal, The patient has a previous history of Multiple Myeloma and Dialysis. Has been on dialysis for 1 month. Started chemotherapy last week. The patient has been recently seen by a physician: Dr. Daniel. Chemo started on . Had labs drawn this AM. Hgb 7.2. 13:39 Patient woke up this AM at 4:00 with dry heaves. She returned to sleep after dry pm1 heaving resolved. Around 8:00 when the family was getting her up to start her day she had some weakness using her walker and fell over on to her right side. 17:05 At 4:00 this AM patient was not talking to family members at that time when she had pm1 nausea and dry heaves. Possible start of AMS at this time. Historical: - Allergies: : No Known Allergies; iw - Home Meds: :57 Velcade 3.5 mg injection solr weekly [Active]; Xgeva 120 mg/1.7 mL (70 mg/mL) iw subcutaneous soln 1.7 mL every 4 wks [Active]; Dexamethasone Oral once daily [Active]; Ondansetron Oral as needed [Active]; valacyclovir 500 mg Oral tab once daily [Active]; losartan 50 mg oral tab 1 tab once daily [Active]; Revlimid 5 mg for 14 days and 7 days off oral cap [Active]; epoetin fabrice injection injection as needed [Active]; - PMHx: 13:57 Hypertension; kidney problems; Dialysis; Multiple Myeloma; iw - Immunization history:: Adult Immunizations. - Social history:: Smoking status: Patient denies any tobacco usage or history of. ROS: 14:02 Constitutional: Negative for fever, chills, and weight loss, Cardiovascular: Negative pm1 for chest pain, palpitations, and edema, Respiratory: Negative for shortness of breath, cough, wheezing, and pleuritic chest pain. 14:02 Back: Negative for injury and pain, : Negative for injury, bleeding, discharge, and swelling, MS/Extremity: Negative for injury and deformity. 14:02 Abdomen/GI: Positive for nausea, Negative for abdominal pain, vomiting, diarrhea, constipation. 14:02 Skin: Positive for abrasion(s), of the right side of upper lip. 14:02 Neuro: Positive for weakness, generalized. Exam: 14:02 Constitutional: This is a well developed, well nourished patient who is awake, alert, pm1 and in no acute distress. 14:02 Neck: Trachea midline, no thyromegaly or masses palpated, and no cervical lymphadenopathy. Supple, full range of motion without nuchal rigidity, or vertebral point tenderness. No Meningismus. 14:02 Abdomen/GI: Soft, non-tender, with normal bowel sounds. No distension or tympany. No guarding or rebound. No evidence of tenderness throughout. Back: No spinal tenderness. No costovertebral tenderness. Full range of motion. Skin: Warm, dry with normal turgor. Normal color with no rashes, no lesions, and no evidence of cellulitis. MS/ Extremity: Pulses equal, no cyanosis. Neurovascular intact. Full, normal range of motion. 14:02 Head/face: Noted is no obvious of injury or deformity except abrasion(s), that are mild, of the right upper lip just below right nostril. 14:02 Cardiovascular: Exam negative for acute changes, Rate: normal, Rhythm: regular, Pulses: no pulse deficits are appreciated. 14:02 Respiratory: Exam negative for acute changes, respiratory distress, shortness of breath. 14:02 Neuro: Orientation: Not oriented to place, time, situation, Mentation: able to follow commands, slow to respond, Motor: moves all fours, Sensation: is normal, no obvious gross deficits. Vital Signs: 13:47 BP 162 / 85; Pulse 103; Resp 16 S; Temp 98.2(TE); Pulse Ox 100% on R/A; Pain 0/10; iw 14:58 BP 159 / 80; Pulse 100; Resp 16; Pulse Ox 100% ; bp 15:45 BP 146 / 84; Pulse 109; Resp 16; Pulse Ox 97% ; bp 16:55 BP 168 / 87; Pulse 109; Resp 20; Pulse Ox 98% ; bp 18:15 BP 167 / 105; Pulse 110; Resp 17; Pulse Ox 97% ; bp 19:24 BP 175 / 98; Pulse 107; Resp 18; Temp 98.5; Pulse Ox 99% ; rv MDM: 13:25 Patient medically screened. pm1 15:01 Data reviewed: vital signs. Data interpreted: Pulse oximetry: on room air is 100 %. pm1 Interpretation: normal. 16:00 Counseling: I had a detailed discussion with the patient and/or guardian regarding: the pm1 historical points, exam findings, and any diagnostic results supporting the discharge/admit diagnosis, lab results, radiology results, the need for further work-up and treatment in the hospital. 16:33 Physician consultation: Melo Patterson MD was contacted at 16:33, regarding admission, pm1 patient's condition, in the emergency department to see patient at 16:33. 16:40 Physician consultation: Melo Patterson MD would like further tests performed, MRI. pm1 16:50 Physician consultation: Davide Romero MD was contacted at 16:50, regarding patient's pm1 condition, Patient onset of AMS and weakness before 0800. Patient not a TPA candidate. Pending MRI brain results to determine disposition. Instructed to hold aspirin. 16:58 Physician consultation: Maricruz Zelaya MD Transfuse blood and may give Lasix pm1 as needed to prevent volume overload. Patient can have dialysis treatment tomorrow. 17:06 ED course: Discussed with consultation with family and plan pending MRI. Family members pm1 verified that she is not able to take Aspirin. 18:12 Physician consultation: Davide Romero MD regarding Negative MRI, and will see patient pm1 tomorrow. 06/27 13:37 Order name: Urine Microscopic Only; Complete Time: 16:00 pm1 06/27 13:37 Order name: Basic Metabolic Panel; Complete Time: 15:15 pm1 06/27 13:37 Order name: CBC with Diff; Complete Time: 15:37 pm1 06/27 13:37 Order name: LFT's; Complete Time: 15:15 pm1 06/27 13:37 Order name: Magnesium; Complete Time: 15:15 pm1 06/27 13:37 Order name: NT PRO-BNP; Complete Time: 15:15 pm1 06/27 13:37 Order name: PT-INR; Complete Time: 14:41 pm1 06/27 13:37 Order name: Troponin (emerg Dept Use Only); Complete Time: 15:15 pm1 06/27 14:33 Order name: Manual Differential; Complete Time: 15:37 EDMS 06/27 15:00 Order name: Urine Dipstick--Ancillary (enter results); Complete Time: 15:15 bd 06/27 15:17 Order name: Bb Add On bd 06/27 15:38 Order name: Flu pm06/27 15:38 Order name: Strep pm1 06/27 15:38 Order name: COVID-19 pm1 06/27 15:39 Order name: Blood Culture Adult (2) pm1 06/27 15:52 Order name: Urine Culture [facility] 06/27 16:44 Order name: Type And Screen bd 06/27 16:58 Order name: Comprehensive Metabolic Panel [facility] 06/27 16:58 Order name: Comprehensive Metabolic Panel [facility] 06/27 16:58 Order name: Lipid Profile [facility] 06/27 16:58 Order name: Lipid Profile [facility] 06/27 16:58 Order name: Magnesium EDMS 06/27 16:58 Order name: Magnesium EDMS 06/27 16:58 Order name: Phosphorus EDMS 06/27 16:58 Order name: Phosphorus EDMS 06/27 16:58 Order name: Protime (+INR) EDMS 06/27 16:58 Order name: Protime (+INR) EDMS 06/27 16:58 Order name: Protime (+INR) EDMS 06/27 16:58 Order name: Protime (+INR) EDMS 06/27 16:58 Order name: Protime (+INR) EDMS 06/27 13:37 Order name: CT Head Brain wo Cont; Complete Time: 14:03 pm1 06/27 13:37 Order name: Urine Dipstick-Ancillary (obtain specimen); Complete Time: 14:58 pm1 06/27 13:37 Order name: XRAY Chest (1 view); Complete Time: 15:37 pm1 06/27 13:37 Order name: EKG; Complete Time: 13:37 pm1 06/27 16:46 Order name: MRI Stroke Protocol pm1 06/27 16:58 Order name: CONS Physician Consult EDMS 06/27 16:58 Order name: NPO EDMS 06/27 16:58 Order name: Protime (+INR) EDMS 06/27 16:58 Order name: PTT, Activated Partial Thromb EDMS 06/27 16:58 Order name: PTT, Activated Partial Thromb EDMS 06/27 16:58 Order name: PTT, Activated Partial Thromb EDMS 06/27 16:58 Order name: PTT, Activated Partial Thromb EDMS 06/27 16:58 Order name: PTT, Activated Partial Thromb EDMS 06/27 16:58 Order name: PTT, Activated Partial Thromb EDMS 06/27 16:58 Order name: T4,Total EDMS 06/27 16:58 Order name: T4,Total EDMS 06/27 16:59 Order name: Thyroid Stimulating Hormone EDMS 06/27 16:59 Order name: Thyroid Stimulating Hormone EDMS 06/27 16:59 Order name: Troponin I [facility] 06/27 16:59 Order name: Troponin I EDMS 06/27 16:59 Order name: Troponin I EDMS 06/27 16:59 Order name: Physical Therapy Consult EDMS 06/27 16:59 Order name: Speech Therapy Consult [facility] 06/27 16:59 Order name: NPO EDMS 06/27 16:59 Order name: NPO EDMS 06/27 16:59 Order name: Echo with Doppler EDMS 06/27 16:59 Order name: EKG Electrocardiogram EDMS 06/27 16:59 Order name: Carotid Artery Bilateral EDMS 06/27 18:02 Order name: MRI; Complete Time: 18:07 EDMS 06/27 18:17 Order name: Diet Renal; Complete Time: 18:18 bp 06/27 13:37 Order name: Straight Cath - Urine; Complete Time: 14:57 pm1 06/27 13:37 Order name: Cardiac monitoring; Complete Time: 13:47 pm1 06/27 13:37 Order name: EKG - Nurse/Tech; Complete Time: 14:57 pm1 06/27 13:37 Order name: IV Saline Lock; Complete Time: 14:06 pm1 06/27 13:37 Order name: Labs collected and sent; Complete Time: 14:06 pm1 06/27 13:37 Order name: O2 Per Protocol; Complete Time: 13:46 pm1 06/27 13:37 Order name: O2 Sat Monitoring; Complete Time: 13:46 pm1 Administered Medications: 16:00 Drug: Rocephin 1 grams Route: IV; Rate: calculated rate; Site: right hand; bp 18:51 Follow up: IV Status: Completed infusion; IV Intake: 50ml bp Disposition: 06/28 07:03 Co-signature as Attending Physician, Kevin Butler MD I agree with the assessment and rn plan of care. Disposition: 06/27/20 16:02 Hospitalization ordered by Melo Patterson for Inpatient Admission. Preliminary diagnosis are Pneumonia, unspecified organism, Fall on same level, unspecified, Weakness, Abrasion of other part of head - upper lip, Urinary tract infection, site not specified, End stage renal disease, Altered mental status, unspecified. - Bed requested for Telemetry/MedSurg (Inpatient). - Status is Inpatient Admission. mg2 - Condition is Stable. - Problem is new. - Symptoms have improved. Signatures: Dispatcher [employer] EDMS Wanda Covarrubias Irene, RN Kevin Walters MD MD rn Marinas, Patrick, TJ SCRIPT SUPERVISOR pm1 Shahriar Marie RN RN bp Raúl Downs RN RN mg2 Corrections: (The following items were deleted from the chart) 06/27 16:08 14:02 Neuro: Positive for weakness, pm1 pm1 16:17 16:02 Hospitalization Ordered by Gil Butler MD for Inpatient Admission. Preliminary pm1 diagnosis is Pneumonia, unspecified organism; Fall on same level, unspecified; Weakness; Abrasion of other part of head - upper lip; Urinary tract infection, site not specified; End stage renal disease. Bed requested for Telemetry/MedSurg (Inpatient). Status is Inpatient Admission. Condition is Stable. Problem is new. Symptoms have improved. pm1 16:32 16:17 06/27/2020 16:02 Hospitalization Ordered by Gil Butler MD for Inpatient pm1 Admission. Preliminary diagnosis is Pneumonia, unspecified organismFall on same level, unspecified; Weakness; Abrasion of other part of head - upper lip; Urinary tract infection, site not specified; End stage renal disease; Altered mental status, unspecified. Bed requested for Telemetry/MedSurg (Inpatient). Status is Inpatient Admission. Condition is Stable. Problem is new. Symptoms have improved. pm1 17:03 16:59 Chest Pa And Lat (2 Views) ordered. EDMS EDMS 17:11 16:32 06/27/2020 16:02 Hospitalization Ordered by Melo Patterson MD for Inpatient bd Admission. Preliminary diagnosis is Pneumonia, unspecified organismFall on same level, unspecified; Weakness; Abrasion of other part of head - upper lip; Urinary tract infection, site not specified; End stage renal disease; Altered mental status, unspecified. Bed requested for Telemetry/MedSurg (Inpatient). Status is Inpatient Admission. Condition is Stable. Problem is new. Symptoms have improved. pm1 17:36 16:46 Physician consultation: Davide Romero MD was contacted at 16:50, regarding pm1 patient's condition, Patient onset of AMS and weakness before 0800. Patient not a TPA candidate. Pending MRI brain results to determine disposition. Instructed to hold aspirin, pm1 17:40 17:35 Physician consultation: Maricruz Zelaya MD pm1 pm1 20:06 17:11 06/27/2020 16:02 Hospitalization Ordered by Melo Patterson MD for Inpatient mg2 Admission. Preliminary diagnosis is Pneumonia, unspecified organismFall on same level, unspecified; Weakness; Abrasion of other part of head - upper lip; Urinary tract infection, site not specified; End stage renal disease; Altered mental status, unspecified. Bed requested for Telemetry/MedSurg (Inpatient). Status is Inpatient Admission. Condition is Stable. Problem is new. Symptoms have improved. bd
[2020-06-27] MEDS ORDERED: NA CHLORIDE 0.9% 100 ML IV ONE (16:24)
[2020-06-27] MEDS ORDERED: CEFTRIAXONE/SWI 1gm 1 GM/10 ML SYR ONE (16:24)
[2020-06-27] MEDS ORDERED: ONDANSETRON 4 MG/2 ML VIAL IV PRN (16:49)
[2020-06-27] MEDS ORDERED: ACETAMINOPHEN 500 MG TAB PO PRN (16:49)
[2020-06-27] MEDS ORDERED: FUROSEMIDE 20 MG/ 2ML VIAL IV SCH (17:00)
[2020-06-27] MEDS ORDERED: CEFTRIAXONE/SWI 1gm 1 GM/10 ML SYR IVP SCH (18:00)
--- NOTE | 2020-06-27 18:01 | RAD REPORT ---
EXAM DESCRIPTION: MRI - Brain Wo Cont - 06/27/2020 5:44 pm CLINICAL HISTORY: MENTAL STATUS CHANGE COMPARISON: Head Brain Wo Cont dated 06/27/2020 TECHNIQUE: Sagittal T1-weighted images were obtained along with axial PD, heavily T2-weighted and T2 -FLAIR images. Axial DWI and ADC mapping sequences were also obtained along with coronal heavily T2-w eighted images. FINDINGS: No intracranial hemorrhage, mass or acute infarction. There is no edema or shift of midlin e structures. No extra-axial fluid collections. Brunson-matter/white matter junction is preserved. Signa l voids are seen as a normal finding in the major intracranial vessels. Atrophy changes are mild with ventricles in proportion. Minimal chronic ischemic change seen in the c erebral white matter. Thalamus, basal ganglia and brainstem tissue spared any measurable chronic isch emic change. No globe or orbital content abnormality. Mastoid air cells and paranasal sinuses are clear. IMPRESSION: Mild atrophy and minimal cerebral white matter chronic ischemic change. No acute infarction or other acute intracranial finding.
--- NOTE | 2020-06-27 18:34 | RAD REPORT ---
EXAM DESCRIPTION: - CP - 06/27/2020 6:23 pm CLINICAL HISTORY: CVA COMPARISON: No comparisons TECHNIQUE: Real-time sonographic evaluation of bilateral carotid and vertebral systems was performed . Brunson scale and Doppler interrogation were performed with waveform tracing bilaterally. FINDINGS: Normal high resistance waveforms are noted in both external carotid arteries. The common c arotid arteries and internal carotid arteries show normal low resistance waveforms. The bulb and proximal ICA calcified plaquing changes are present on the right and left. Significant l uminal narrowing is not identified. Peak systolic and end diastolic velocity values and the ICA/CCA r atios are in the non-hemodynamically significant range. Antegrade flow seen in both vertebral arteries. Velocity values and ratios were recorded and are retained in the patient's imaging records. IMPRESSION: Left greater than right calcified and noncalcified plaquing changes are present in the b ulb and proximal ICA regions. Velocity values and ratios do not indicate significant degree of stenosis.
[2020-06-27] MEDS: ATORVASTATIN 40 MG TAB PO SCH (21:00)
[2020-06-27] MEDS: AZITHROMYCIN IV 250 MG in NA CHLORIDE 0.9% 250 ML IVPB SCH (21:00)
[2020-06-27 21:07] VITALS: BMI 24.1
[2020-06-27] MEDS: POTASSIUM 25 MEQ EFFERV TAB PO SCH (22:38)
[2020-06-27] MEDS ORDERED: NA CHLORIDE 0.9% 250 ML ONE (22:44)
--- NOTE | 2020-06-27 23:45 | CON ---
Date of Consultation: 06/27/2020 Chief Complaint: End-stage renal disease, on dialysis; congestive heart failure with diastolic dysfu nction; hyponatremia; anemia in CKD; acute anemia on chronic anemia. History Of Present Illness: The patient came to this hospital because of status post fall. She was found to have pneumonia and started on antibiotics. She had a screen done for urinary tract infectio n, which was positive and the patient is currently on antibiotics. The patient was found to have severe anemia. She is undergoing packed red blood cells transfusion. The patient developed altered mental status and is evaluated for possible stroke. ER workup was done and neurology consultation was obtained for possible stroke. The patient received IV Lasix to preve nt fluid overload. She has some nonoliguric urine output and had effective diuresis. The patient is started on Rocephin for pneumonia and urinary tract infection. Review of Systems: Cannot provide review of systems. Past Medical History: The patient has multiple medical problems including end-stage renal disease, o n dialysis; anemia; CKD; renal osteodystrophy; failure to thrive; hyperparathyroidism; light chain di sease; recurrent urinary tract infection. Past Surgical History: Includes knee surgery, ankle surgery, PermCath placement and exchange. Social History: Denies tobacco, alcohol, or illicit drugs. Family History: Positive for diabetes. Physical Examination: Lungs: Diminished breath sound at bases. Heart: S1, S2. Abdomen: Soft, benign. Extremities: Slight edema in lower extremities. Laboratory Data: Chemistry showed sodium 127, potassium 3.0, chloride 97, CO2 25, BUN 47, creatinine 8.15, magnesium 1.8. Impression And Plan: 1.Anemia, severe. The patient will receive blood transfusion. The patient will need to continue di alysis for her hyponatremia present secondary to volume overload. The patient received IV Lasix. Co ntinue IV Lasix. The patient will have dialysis as soon as possible to obtain negative fluid balance to control fluid overload and electrolytes abnormalities. 2.The patient today developed some altered mental status and is undergoing workup for transient isch emic attack and cerebrovascular accident. Brain MRI was done without contrast today for diagnostic r easons as she was found to have mild atrophy and minimal cerebral wall chronic ischemic changes. The re is no acute infarct. 3.Hyponatremia, hypoosmolar, moderately severe, slightly improved in response to Lasix. Continue p. o. fluid restriction. Advance Lasix as needed and adjust dialysis parameters. 4.Renal osteodystrophy. Continue renal diet and binders. EB/MODL Voice ID: [id number] Report ID: [id number]
[2020-06-28 05:40] LABS: Absolute Lymphocytes (CBC) 4.6 K/uL (0.7-4.9); Basophils % 0.3 % (0-1.3); Hematocrit 23.5 % (36.0-45.0); Lymphocytes % 37.3 % (15.3-44.8); MPV 7.2 fL (7.6-11.3); Protime INR 1.12; RBC Red Blood Cell Count 2.75 M/uL (3.86-4.86)
[2020-06-28 06:26] LABS: Albumin 1.7 g/dL (3.4-5.0); Bilirubin Total 0.4 mg/dL (0.2-1.0); Magnesium 1.8 mg/dL (1.8-2.4); Phosphorus 1.5 mg/dL (2.5-4.9); Potassium 3.5 mmol/L (3.5-5.1); Protein, Total 14.7 g/dL (6.4-8.2); Thyroid Stimulating Hormone 1.11 uIU/mL (0.360-3.740)
[2020-06-28] MEDS ORDERED: SODIUM CHLORIDE 1 GM TAB PO SCH (08:00)
[2020-06-28 08:13] LABS: T4,Total 7.3 ug/dL (4.8-13.9)
[2020-06-28] MEDS: AZITHROMYCIN IV 250 MG in NA CHLORIDE 0.9% 250 ML IVPB SCH (08:21)
[2020-06-28] MEDS: CEFTRIAXONE/SWI 1gm 1 GM/10 ML SYR IVP SCH (08:22)
[2020-06-28] MEDS: CLOPIDOGREL 75 MG TABLET PO SCH (09:00)
[2020-06-28] MEDS: ASPIRIN EC 81 MG TAB PO SCH (09:00)
[2020-06-28] MEDS ORDERED: AZITHROMYCIN IV 250 MG in NA CHLORIDE 0.9% 250 ML IVPB SCH (09:00)
[2020-06-28] MEDS: POTASSIUM 25 MEQ EFFERV TAB PO SCH (09:00)
[2020-06-28] MEDS ORDERED: METOPROLOL TARTRATE 5 MG/5 ML INJ IV STA (11:23)
--- NOTE | 2020-06-28 11:36 | P.HP ---
Certification for Inpatient Patient admitted to: Inpatient With expected LOS: >2 Midnights Practitioner: I am a practitioner with admitting privileges, knowledge of patient current condition, hospital course, and medical plan of care. Services: Services provided to patient in accordance with Admission requirements found in Title 42 Section 412.3 of the Code of Federal Regulations Patient History Date of Service: 06/27/20 Reason for admission: Altered mental status History of Present Illness: Patient is a 74-year-old female came to the emergency room with altered mentation. Apparently, she woke up with right-sided weakness. She went to brush her teeth around 8 o'clock this morning, and she dropped her toothbrush. She brushes with the right hand. It also looked like her right leg was giving out. I think they spoke to their physician who recommended they come into the emergency room. I saw the patient around 5:00 p.m.. She had come into the emergency room around 4:00 p.m.. I had seen her a month ago and her mentation is much different today then 1 month prior. She was able to communicate very effectively; however, she is not really able to follow any directions at this time. She tends to just stare at me. She appears very obtunded. Will try to get an MRI of her brain as her CT scan of the brain was negative. She does appear to have a pneumonia and urinary tract infection. She has been started on IV antibiotics in the emergency room. Her oxygenation is okay. She recently got her 1st dose of chemo a week ago for her treatment of multiple myeloma. Patient has been tolerating hemodialysis well. At this time, will also get neurology consultation in the emergency room and get their recommendation. Nephrology will also be consulted for the hemodialysis. Will discuss the case with the oncologist who is treating her multiple myeloma as well. Allergies No Known Allergies Allergy (Verified 06/27/20 21:07) Home Medications: Bortezomib 3.5 mg SQ SEECOM 06/27/20 Lenalidomide [Revlimid] 5 mg PO SEECOM 06/27/20 Losartan Potassium 50 mg PO DAILY 06/27/20 Ondansetron HCl 4 mg PO PRN PRN 06/27/20 Valacyclovir [Valtrex*] 500 mg PO DAILY 06/27/20 dexAMETHasone [Dexamethasone] 20 mg PO SEECOM 06/27/20 - Past Medical/Surgical History Has patient received pneumonia vaccine in the past: No Diabetic: No -: hypertension -: End-stage renal disease on dialysis -: Multiple myeloma -: Anemia -: sx on left broken knee cap -: Rt ankle sx Psychosocial/ Personal History: Patient lives at home with her family. - Family History Mother Medical History: Diabetes Father Medical History: Hypertension, GI disease, Cancer - Social History Smoking Status: Never smoker Alcohol use: No CD- Drugs: No Caffeine use: Yes Place of Residence: Home Review of Systems is unable to be obtained Physical Examination - Vital Signs Temperature: 97.6 F Blood Pressure: 185/95 Pulse: 105 Respirations: 24 Pulse Ox (%): 95 - Physical Exam General: Alert, In no apparent distress, Confused, Other (Obtunded) HEENT: Atraumatic, PERRLA, Mucous membr. moist/pink, EOMI, Sclerae nonicteric Neck: Supple, 2+ carotid pulse no bruit, No LAD, Without JVD or thyroid abnorm ality Respiratory: Diminished, Rhonchi/gurgles Cardiovascular: Regular rate/rhythm, Normal S1 S2, Systolic murmur Gastrointestinal: Normal bowel sounds, Soft and benign, Non-distended, No tenderness Musculoskeletal: No clubbing, No swelling, No tenderness Integumentary: No rashes Neurological: Normal tone, Sensation intact, Cranial nerves 3-12 intact, Abnormal gait, Abnormal speech, Abnormal strength, Abnormal affect Lymphatics: No axilla or inguinal lymphadenopathy - Studies Laboratory Data (last 24 hrs) 06/27/20 14:05: PT 13.5 H, INR 1.15 06/27/20 14:05: WBC 12.0 H, Hgb 6.5 L*, Hct 19.1 L*, Plt Count 259 06/27/20 14:05: Sodium 127 L, Potassium 3.0 L, BUN 47 H, Creatinine 8.15 H*, Glucose 102, Magnesium 1.8, Total Bilirubin 0.3, AST 19, ALT < 6 L, Alkaline Phosphatase 46 Microbiology Data (last 24 hrs): 06/27/20 16:00 Nasopharnyx Influenza Type A Antigen Screen - Final 06/27/20 16:00 Nasopharnyx Influenza Type B Antigen Screen - Final 06/27/20 16:00 Throat Group A Streptococcus Rapid Screen - Final Assessment & Plan - Problems (Diagnosis) (1) Altered mental status Current Visit: Yes Status: Acute (2) UTI (urinary tract infection) Current Visit: Yes Status: Acute (3) Pneumonia Current Visit: Yes Status: Acute (4) Status post chemotherapy Current Visit: Yes Status: Acute (5) ESRD (end stage renal disease) Current Visit: No Status: Acute (6) Hypertension Current Visit: No Status: Acute Qualifiers: Hypertension type: essential hypertension Qualified Code(s): I10 - Essential (primary) hypertension (7) Multiple myeloma Current Visit: No Status: Acute - Plan Plan: 1. MRI of the brain 2. Neurology consultation 3. IV antibiotic therapy for pneumonia and UTI and 4. Nephrology consultation for hemodialysis 5. Monitor H and H after blood transfusion of 1 unit. May need hemodialysis afterwards the will give Lasix as well 6. Discuss the case with Oncology 7. Physical therapy and speech therapy evaluation 8. Monitor hemodynamics closely 9. GI and DVT prophylaxis Discharge Plan: Home Plan to discharge in: Greater than 2 days - Advance Directives Does patient have a Living Will: No Does patient have a Durable POA for Healthcare: No - Code Status/Comfort Care Code Status Assessed: Yes Code Status: Full Code Critical Care: No Time Spent Managing PTS Care (In Minutes): 45
--- NOTE | 2020-06-28 11:43 | P.PN ---
Subjective Date of Service: 06/28/20 Patient is still obtunded and confused. MRI did not reveal any abnormalities. Continue discussing the case with consultants. Spoke with family in detail. Continue physical therapy and speech therapy. Out of bed into a chair for meals. Monitor swallowing. Review of Systems is unable to be obtained Physical Examination - Vital Signs Temperature: 97.6 F Blood Pressure: 185/95 Pulse: 105 Respirations: 24 Pulse Ox (%): 95 - Physical Exam General: Alert, In no apparent distress, Confused Respiratory: Diminished, Rhonchi/gurgles Cardiovascular: Regular rate/rhythm, Normal S1 S2, Systolic murmur Gastrointestinal: Normal bowel sounds, Soft and benign, Non-distended, No tenderness Musculoskeletal: No clubbing, No swelling, No tenderness Integumentary: No rashes Neurological: Sensation intact, Cranial nerves 3-12 intact, Abnormal gait, Abnormal speech, Abnormal strength, Abnormal affect Lymphatics: No axilla or inguinal lymphadenopathy - Studies Laboratory Data (last 24 hrs) 06/27/20 14:05: PT 13.5 H, INR 1.15 06/27/20 14:05: WBC 12.0 H, Hgb 6.5 L*, Hct 19.1 L*, Plt Count 259 06/27/20 14:05: Sodium 127 L, Potassium 3.0 L, BUN 47 H, Creatinine 8.15 H*, Glucose 102, Magnesium 1.8, Total Bilirubin 0.3, AST 19, ALT < 6 L, Alkaline Phosphatase 46 Microbiology Data (last 24 hrs): 06/27/20 16:00 Nasopharnyx Influenza Type A Antigen Screen - Final 06/27/20 16:00 Nasopharnyx Influenza Type B Antigen Screen - Final 06/27/20 16:00 Throat Group A Streptococcus Rapid Screen - Final Medications List Reviewed: Yes Assessment & Plan - Problems (Diagnosis) (1) Altered mental status Current Visit: Yes Status: Acute (2) UTI (urinary tract infection) Current Visit: Yes Status: Acute (3) Pneumonia Current Visit: Yes Status: Acute (4) Status post chemotherapy Current Visit: Yes Status: Acute (5) ESRD (end stage renal disease) Current Visit: No Status: Acute (6) Hypertension Current Visit: No Status: Acute Qualifiers: Hypertension type: essential hypertension Qualified Code(s): I10 - Essential (primary) hypertension (7) Multiple myeloma Current Visit: No Status: Acute - Plan Plan: 1. MRI of the brain with no significant abnormalities. Possible toxic encephalopathy from infection. Continue IV antibiotic therapy 2. Neurology consultation pending 3. IV antibiotic therapy for pneumonia and UTI and 4. Nephrology consultation for hemodialysis 5. Hemoglobin improved. Monitor H&H and additional lab studies pending 6. Discussed the case with Oncology 7. Physical therapy and speech therapy evaluation; out of bed & into a chair for meals 8. Monitor hemodynamics closely 9. GI and DVT prophylaxis Discharge Plan: Home Plan to discharge in: Greater than 2 days - Advance Directives Does patient have a Living Will: No Does patient have a Durable POA for Healthcare: No - Code Status/Comfort Care Code Status: Full Code Critical Care: No Time Spent Managing PTS Care (In Minutes): 45
[2020-06-28] MEDS ORDERED: DEXAMETHASONE 20 MG PO SCH (11:45)
[2020-06-28] MEDS ORDERED: LENALIDOMIDE 5 MG PO SCH (11:45)
[2020-06-28] MEDS ORDERED: BORTEZOMIB 3.5 MG SQ SCH (11:45)
--- NOTE | 2020-06-28 12:18 | EKG ---
Test Date: 2020-06-27 Test Time: 14:40:27 [employer] [place] [employer]: NINA MEASUREMENT RESULTS: Intervals: Rate: 104 CO: 132 QRSD: 90 QT: 368 QTc: 483 [place]: P: 41 CO: 132 QRS: 10 T: 74 INTERPRETIVE STATEMENTS: Sinus tachycardia Nonspecific ST and T wave abnormality Abnormal ECG Compared to ECG 07/31/2017 08:58:29 ST (T wave) deviation now present Sinus rhythm no longer present Electronically Signed On 06-28-20 12:15:12 CDT by Aubrey Canales
--- NOTE | 2020-06-28 12:38 | P.PN ---
Subjective Date of Service: 06/28/20 Chief Complaint: Altered mental status Subjective Pt with ESRD , multiple myloma admitted for AMS Today awake , not oriented MRI, no significant findings will add epogen will add Nifedipine Physical exam general: awake, not oriented Neck; Supple, No elevated JVD hear: RRR, normal S1,2 no murmur or rub Chest: CTAB, no rlaes or wheezes Abdomen: Soft , Nt Extremities No edema or ulcer ESRD on HD MWF via Rt tunneled catheter HD today renal dose meds AMS MRI with no significant findings High ESR , F/U blood cultures cont Abx HTN will add nIfedipine Anemic of chronic disease 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 S/p 2pRBC multiple myloma cont meds as per hematology moderate Hyponatremia could be pseudohyponatremia due to light chain disease will correct with HD metabolic bone disease will add calcium carbonate Physical Examination - Vital Signs Temperature: 97.6 F Blood Pressure: 185/95 Pulse: 105 Respirations: 24 Pulse Ox (%): 95 - Studies Laboratory Data (last 24 hrs) 06/27/20 14:05: PT 13.5 H, INR 1.15 06/27/20 14:05: WBC 12.0 H, Hgb 6.5 L*, Hct 19.1 L*, Plt Count 259 06/27/20 14:05: Sodium 127 L, Potassium 3.0 L, BUN 47 H, Creatinine 8.15 H*, Glucose 102, Magnesium 1.8, Total Bilirubin 0.3, AST 19, ALT < 6 L, Alkaline Phosphatase 46 Microbiology Data (last 24 hrs): 06/27/20 16:00 Nasopharnyx Influenza Type A Antigen Screen - Final 06/27/20 16:00 Nasopharnyx Influenza Type B Antigen Screen - Final 06/27/20 16:00 Throat Group A Streptococcus Rapid Screen - Final Medications List Reviewed: Yes
[2020-06-28] MEDS ORDERED: NIFEDIPINE XL 30 MG TABLET PO SCH (13:00)
--- NOTE | 2020-06-28 13:10 | ECHO ---
HEIGHT: 5 ft 1 in WEIGHT: 128 lb 0 oz DATE OF STUDY: 06/28/[address]: Melo Patterson MD 2-DIMENSIONAL: YES M.MODE: YES DOPPLER: YES COLOR FLOW: YES TDS: PORTABLE: DEFINITY: BUBBLE STUDY: DIAGNOSIS: STOKE CARDIAC HISTORY: CATHERIZATION: NO SURGERY: NO PROSTHETIC VALVE: NO PACEMAKER: NO MEASUREMENTS (cm) DIASTOLIC (NORMALS) SYSTOLIC (NORMALS) IVSd 1.0 (0.6-1.2) LA Diam 2.6 (1.9-4.0) LVEF 59% LVIDd 5.2 (3.5-5.7) LVIDs 3.5 (2.0-3.5) %FS 31% LVPWd 1.1 (0.6-1.2) Ao Diam 2.5 (2.0-3.7) 2 DIMENSIONAL ASSESSMENT: RIGHT ATRIUM: NORMAL LEFT ATRIUM: NORMAL RIGHT VENTRICLE: NORMAL LEFT VENTRICLE: NORMAL TRICUSPID VALVE: NORMAL MITRAL VALVE: NORMAL PULMONIC VALVE: NORMAL AORTIC VALVE: AORTIC SCLEROSIS PERICARDIAL EFFUSION: NONE AORTIC ROOT: NORMAL LEFT VENTRICULAR WALL MOTION: NORMAL DOPPLER/COLOR FLOW: MILD TRICUSPID REGURGITATION. COMMENTS: MILD TRICUSPID REGURGITATION. NORMAL RIGHT VENTRICULAR SYSTOLIC PRESSURE. AORTIC SCLEROSIS. NO THROMBUS. NORMAL LEFT VENTRICULAR SIZE AND FUNCTION. TECHNOLOGIST: REJI LEGGETT
[2020-06-28] MEDS: EPOETIN ALFA 10,000 UNIT/ML VIAL IV SCH (16:32)
[2020-06-28] MEDS ORDERED: HYDROCORTISONE SUC 100 MG INJ IV ONE (17:00)
[2020-06-28] MEDS: ATORVASTATIN 40 MG TAB PO SCH ×2 (21:00→21:54)
[2020-06-28] MEDS: CALCIUM CARBONATE 500 MG TAB PO SCH ×2 (21:00→21:54)
--- NOTE | 2020-06-29 00:22 | CON ---
Reason For Consultation: Consultation called because of possible stroke versus altered mental status . History Of Present Illness: Ms. Velazquez is a 74-year-old patient, with history of chronic herpes, b eing treated with Valtrex, hypertension, and multiple myeloma, who just started chemotherapy by infus ion and medications 1 week prior to onset of her symptoms. The patient's granddaughter and daughter are in the room reported her symptoms. It should be noted she is also an end-stage renal disease pat ient, on hemodialysis 3 times weekly. Family noted that on the morning of 06/27, she woke up, had di fficulty holding onto objects in the right hand like her toothbrush and could not hold onto her walke r on the right side and her right leg was weak. There were also some tremors and shakes noted on the right side including facial and hand twitching. At [facility], a brain CT scan was negativ e for any acute ischemic or hemorrhagic change. Subsequent brain MRI showed no evidence of a stroke or an infection. Her chest x-ray showed suspected patchy infiltrates in the mid and lower left lung, possibly due to edema versus possible infection. Allergies: NO KNOWN DRUG ALLERGIES. Home Medications: Bortezomib 3.5 mg subcutaneously weekly, Revlimid 5 mg daily, losartan 50 mg daily , ondansetron 4 mg as needed, Valtrex 500 mg daily, and dexamethasone 20 mg daily. Past Medical History: Hypertension, again end-stage renal disease, on hemodialysis, multiple myeloma , chronic anemia. Past Surgical History: Kneecap surgery on the left and right ankle surgery. Social History: The patient lives with family at home. No alcohol, tobacco, or IV drug use. She us es caffeine. Family History: Diabetes in mother and father with hypertension, gastrointestinal disease, and cance r. Review of Systems: Not clearly reliable. Physical Examination: Vital Signs: Blood pressure ranged up to 185/95 from 125/84, pulse ranged from 87 to 109, respirator y rate 16 up to 24, temperature 97.8, oxygen saturation 94%. Weight 128 pounds, height 5 feet 1 inch , BMI 24.2. General: Ms. Velazquez was off to hemodialysis at the time I came to see her. The patient's family r eported that she did have some right-sided shaky movements in the arms and legs and there was some di fficulty with her communication, she seemed altered, but at other times, the arms seem to be moving e qually well. The discussion with Dr. Patterson, the hospitalist, did not reveal that she had focal weakne ss in the face, arm, or leg or any asymmetries in terms of sensory response or coordination. She is to be evaluated by Physical Therapy and she will be seen again tomorrow for detailed neurological jose luation. Laboratory Studies: Her white blood cell count is slightly elevated at 12.3. On admission, her hemo globin was down to 6.5 and she did receive 1 unit transfused with hemodialysis, she improved to 8.2 t subhash. Platelets normal at 223. Her ESR elevated to 107. Her calcium was low to 6.8. TSH normal at 1.11. Creatinine today before dialysis was 8.78. Glucose ranged from 96 to 113. Phosphorus low at 1.5. Urinalysis on admission did show 1+ esterase, 20-50 bacteria and 3+ protein. Carotid artery u ltrasound showed left greater than right calcified and noncalcified plaque in the proximal ICA, inter nal carotid artery, regions, however, the ratios do not indicate significant degrees of stenosis on e ither side. Assessment: 1.Ms. Velazquez is a 74-year-old patient with possible multiple reasons for altered mental status and right-sided tremors with intermittent weakness. She has multiple myeloma and started chemotherapy r ecently. She also is an end-stage renal dialysis patient, on hemodialysis and potentially has a urin danyell tract infection and slightly elevated white blood cell count, which may be secondary to her multi ple myeloma. Consideration also should be given for the potential involvement of herpes in the brain as she does have that treated with Valtrex, but she is immunocompromised and there may be an overact ivity of the left temporal region potentially giving intermittent abnormal electrical discharges, whi ch may manifest with a right-sided shaking. Further, a paraneoplastic syndrome may be considered giv en the multiple myeloma as a potential cause for limbic encephalitis with her periodic shaking as wel l as confusion. Plan, routine electroencephalogram. 2.We will consider lumbar puncture for rule out of herpes simplex encephalitis versus paraneoplastic encephalopathy or a potential central nervous system infection as a cause for her focal findings and confusion. Of course, carry out her dialysis as scheduled and replacement of her lost hemoglobin as scheduled as that too may be a contributing factor to her encephalopathy. She will be [place] when she is back in the room. RED/PAULINO Voice ID: [id number] Report ID: [id number]
[2020-06-29 07:13] LABS: Absolute Lymphocytes (CBC) 5.5 K/uL (0.7-4.9); Basophils % 0.4 % (0-1.3); Hematocrit 24.6 % (36.0-45.0); MPV 7.6 fL (7.6-11.3)
[2020-06-29 07:18] LABS: Protime INR 1.11
[2020-06-29] MEDS ORDERED: NIFEDIPINE XL 30 MG TABLET PO SCH (08:00)
[2020-06-29] MEDS: AZITHROMYCIN IV 250 MG in NA CHLORIDE 0.9% 250 ML IVPB SCH (08:03)
[2020-06-29] MEDS: NIFEDIPINE XL 30 MG TABLET PO SCH (08:04)
[2020-06-29] MEDS: LOSARTAN POTASSIUM 50 MG TABLET PO SCH (08:05)
[2020-06-29] MEDS: HYDROCORTISONE SUC 100 MG INJ IV SCH ×2 (08:11→22:06)
[2020-06-29] MEDS: CALCIUM CARBONATE 500 MG TAB PO SCH ×2 (08:11→22:07)
[2020-06-29] MEDS: CEFTRIAXONE/SWI 1gm 1 GM/10 ML SYR IVP SCH (08:11)
[2020-06-29] MEDS: POTASSIUM 25 MEQ EFFERV TAB PO SCH (08:11)
[2020-06-29] MEDS ORDERED: VALACYCLOVIR 500 MG TAB PO SCH (09:00)
[2020-06-29 09:44] LABS: Albumin 1.8 g/dL (3.4-5.0); Bilirubin Total 0.4 mg/dL (0.2-1.0); C-Reactive Protein 29.5 mg/L (<3.00); Folic Acid, (Folate) 9.9 ng/mL (3.1-17.5); Magnesium 1.8 mg/dL (1.8-2.4); Phosphorus 1.6 mg/dL (2.5-4.9); Potassium 3.3 mmol/L (3.5-5.1); Protein, Total 15.4 g/dL (6.4-8.2)
--- NOTE | 2020-06-29 11:23 | PN ---
Date of Progress Note: 06/29/2020 Subjective: The patient was admitted with altered mental status. The patient had multiple myelomas, was started on Velcade. The patient planned for lumbar puncture. Physical Examination: Vital Signs: Blood pressure 138/82, pulse of 115, afebrile. Chest: Clear to auscultation. Heart: S1, S2. Systolic murmur. Abdomen: Soft, nontender. Extremities: No edema. Neuro: Alert, jerk movement on the left upper extremity. Confused. Laboratory Data: WBC 13.7, H and H 8.9/24.6, platelet 225. Sodium 129, potassium 3.3, bicarb 22, BU N 40, creatinine 7.1, calcium 6.7, phosphorus 1.6, magnesium 1.8. BNP 25,000. Albumin 1.8. Procalc itonin 1.3. TSH 1.1. Urinalysis positive for infection. Current Medications: The patient on its include ceftriaxone, azithromycin, valacyclovir oral, Plavix , Epogen, atorvastatin, losartan, metoprolol, nifedipine 30, Tylenol, Zofran, hydrocortisone. Assessment And Plan: 1.End-stage renal disease. We will continue the patient on dialysis Saturday, Saturday, Saturday. We will follow up the patient closely and we will try to establish better volume control. 2.Hypertension, controlled, optimal. Continue current medication. 3.Elevation in BNP, possible secondary to the chemo, doubt to have over volume picture. The patient on room air without any respiratory distress. 4.Altered mental status. The patient started having altered mental status after the chemo; however, differential diagnosis as by Neurology viral encephalitis/paraneoplastic/Velcade HUS. I am going to go ahead and send for haptoglobin and LDH and we will send for smear. If those came positive, the p atient high possibility that she has HUS in the presence of her anemia and in the presence of the alt ered mental status, at that time the patient will need possible to have the plasmapheresis. We will follow up the lab of today. 5.Urinary tract infection. Continue ceftriaxone. I am going to follow up urine culture. 6.Seizure as by Neurology. 7.Viral encephalitis. We will adjust the dose for IV valacyclovir. 8.Multiple myelomas as by Oncology. YANG/PAULINO Voice ID: [id number] Report ID: [id number]
[2020-06-29] MEDS: ACYCLOVIR INJ 600 MG in NA CHLORIDE 0.9% 100 ML IVPB SCH (16:49)
[2020-06-29] MEDS: ATORVASTATIN 40 MG TAB PO SCH (22:06)
[2020-06-29] MEDS ORDERED: WATER FOR INJ,STERILE 10 ML ONE (22:12)
[2020-06-30 04:31] LABS: Protime INR 1.11
[2020-06-30] MEDS: LOSARTAN POTASSIUM 50 MG TABLET PO SCH (09:00)
[2020-06-30] MEDS: NIFEDIPINE XL 30 MG TABLET PO SCH (09:00)
[2020-06-30] MEDS: POTASSIUM 25 MEQ EFFERV TAB PO SCH (09:00)
[2020-06-30] MEDS: CALCIUM CARBONATE 500 MG TAB PO SCH ×2 (09:00→21:00)
[2020-06-30] MEDS: AZITHROMYCIN IV 250 MG in NA CHLORIDE 0.9% 250 ML IVPB SCH (11:01)
[2020-06-30] MEDS: CEFTRIAXONE/SWI 1gm 1 GM/10 ML SYR IVP SCH (11:02)
[2020-06-30] MEDS: HYDROCORTISONE SUC 100 MG INJ IV SCH ×3 (11:02→23:47)
[2020-06-30] MEDS: CALCITROL 0.25 MCG CAP PO SCH (12:00)
--- NOTE | 2020-06-30 12:07 | RAD REPORT ---
EXAM DESCRIPTION: CT - Head Brain Wo Cont - 06/30/2020 11:55 am CLINICAL HISTORY: AMS, non verbal COMPARISON: Head Brain Wo Cont dated 06/27/2020 TECHNIQUE: Axial 5 mm thick images of the head were obtained without IV contrast. All CT scans are performed using dose optimization technique as appropriate and may include automated exposure control or mA/KV adjustment according to patient size. FINDINGS: No intracranial hemorrhage, mass, edema or shift of mid-line structures. Cortical edema or sulcal effacement. No acute cortical based infarction. Patient has minimal atrophy and little chroni c ischemic change identifiable. Ventricles are in proportion to any volume loss. Intracranial finding s are similar to the comparison. Mastoid air cells and visualized portions of the paranasal sinuses are clear. No acute bony findings. IMPRESSION: No intracranial finding identifiable. No significant change from June 27 imaging. If there are continued concerns for CVA and if the patient can tolerate the examination, follow-up MR imaging could be performed.
--- NOTE | 2020-06-30 12:50 | PN ---
Date of Progress Note: 06/30/2020 Subjective: The patient was admitted with altered mental status, suspecting encephalitis. The patie nt yesterday was carrying conversation, then and in the afternoon the patient completely poorly respo nsive. Physical Examination: Vital Signs: Blood pressure 142/78, pulse of 124, afebrile. Chest: Clear to auscultation. Heart: S1, S2. Systolic murmur. Abdomen: Soft, nontender. Neurologic: The patient not following command. Has involuntary twitching on the left side of the fa ce and left hand. Pupil reactive, sluggish. Laboratory Data: WBC 13.7, H and H 8.9/24.6, platelet 225. Sodium 129, potassium 3.3, bicarb 22, BU N 40, creatinine 7.1, calcium 6.7, phosphorus 1.6, magnesium 1.8. BNP 25,922. Current Medications: The patient on its include; 1.Acyclovir. 2.Azithromycin. 3.Ceftriaxone. 4.Epogen. 5.Losartan. 6.Nifedipine. 7.Lasix. 8.KCl. Assessment And Plan: 1.End-stage renal disease. We will maintain the patient on dialysis. The patient is scheduled for dialysis today. The patient is going to be dialyzed on high calcium bath and we will follow up. 2.Secondary hyperparathyroidism with hypocalcemia. The patient is going to be dialyzed on high calc ium bath. I am going to start the patient on calcitriol and we will follow up the patient. 3.Anemia multifactorial secondary to multiple myelomas/chronic kidney disease. Continue YUMIKO. Follo w up with Oncology. 4.Altered mental status, suspect of encephalitis/status epilepticus. We will follow up with Neurolo gy. 5.Hypokalemia, hypomagnesemia. The patient is going to be dialyzed on high calcium and potassium ba th. 6.Hyponatremia, going to be corrected with dialysis. MA/MODL Voice ID: [id number] Report ID: [id number]
[2020-06-30] MEDS: ATORVASTATIN 40 MG TAB PO SCH (21:00)
[2020-07-01 04:13] LABS: Absolute Lymphocytes (CBC) 2.2 K/uL (0.7-4.9); Basophils % 0.4 % (0-1.3); Hematocrit 22.7 % (36.0-45.0); Lymphocytes % 18.2 % (15.3-44.8); MPV 7.7 fL (7.6-11.3); RBC Red Blood Cell Count 2.65 M/uL (3.86-4.86)
[2020-07-01 04:17] LABS: Protime INR 1.1
[2020-07-01 04:51] LABS: Bilirubin Total 0.3 mg/dL (0.2-1.0); C-Reactive Protein 14.4 mg/L (<3.00); Magnesium 1.8 mg/dL (1.8-2.4); Phosphorus 1.3 mg/dL (2.5-4.9); Potassium 3.6 mmol/L (3.5-5.1); Protein, Total 15.3 g/dL (6.4-8.2)
[2020-07-01 05:20] LABS: Anisocytosis 1+; Blood Morphology Comment NOTED (NOT SEEN); Hypochromasia 2+; Platelet Estimate ADEQ
[2020-07-01] MEDS: ACYCLOVIR INJ 600 MG in NA CHLORIDE 0.9% 100 ML IVPB SCH (06:19)
[2020-07-01] MEDS: HYDROCORTISONE SUC 100 MG INJ IV SCH ×2 (06:21→15:02)
--- NOTE | 2020-07-01 07:50 | P.PN ---
Subjective Date of Service: 06/29/20 Patient woke up and talk to me when I walked into the room surprisingly. She answered a lot of my questions appropriately. At this time, await neurology workup including EEG and lumbar puncture. Review of Systems 10-point ROS is otherwise unremarkable Physical Examination - Vital Signs Temperature: 97.8 F Blood Pressure: 112/66 Pulse: 99 Respirations: 20 Pulse Ox (%): 95 - Physical Exam General: Alert, In no apparent distress, Oriented x3 Respiratory: Clear to auscultation bilaterally, Normal air movement Cardiovascular: Regular rate/rhythm, Normal S1 S2, No murmurs Gastrointestinal: Normal bowel sounds, Soft and benign, Non-distended, No tenderness Musculoskeletal: No clubbing, No swelling, No tenderness Neurological: Sensation intact, Cranial nerves 3-12 intact - Studies Microbiology Data (last 24 hrs): 06/27/20 16:00 Throat Culture & Sensitivity - Final NORMAL UPPER RESPIRATORY TERRA GROWN. Medications List Reviewed: Yes Assessment & Plan - Problems (Diagnosis) (1) Altered mental status Current Visit: Yes Status: Acute (2) UTI (urinary tract infection) Current Visit: Yes Status: Acute (3) Pneumonia Current Visit: Yes Status: Acute (4) Status post chemotherapy Current Visit: Yes Status: Acute (5) ESRD (end stage renal disease) Current Visit: No Status: Acute (6) Hypertension Current Visit: No Status: Acute Qualifiers: Hypertension type: essential hypertension Qualified Code(s): I10 - Essential (primary) hypertension (7) Multiple myeloma Current Visit: No Status: Acute (8) Encephalitis Current Visit: Yes Status: Acute - Plan Plan: 1. Continue with antibiotic therapy at this time 2. Neurology consultation appreciated; EEG and lumbar puncture pending 3. IV antibiotic therapy for pneumonia and UTI; nephrology wanted to try acyclovir for possible HSV encephalitis 4. Nephrology consultation for hemodialysis 5. Hemoglobin improved. Monitor H&H and additional lab studies pending 6. Discussed the case with Oncology; chemotherapy use for multiple myeloma treatment is really mild and unlikely to cause neurologic deficits 7. Physical therapy and speech therapy evaluation; out of bed & into a chair for meals 8. Monitor hemodynamics closely 9. GI and DVT prophylaxis Discharge Plan: Home Plan to discharge in: Greater than 2 days - Advance Directives Does patient have a Living Will: No Does patient have a Durable POA for Healthcare: No - Code Status/Comfort Care Code Status: Full Code Critical Care: No Time Spent Managing PTS Care (In Minutes): 35
--- NOTE | 2020-07-01 07:56 | P.PN ---
Subjective Date of Service: 06/30/20 Patient lethargic again. Her mentation is waxing and waning. She is scheduled to get an EEG today. Awaiting neurology input. Lumbar puncture pending for tomorrow as we do not have radiologic services today. Continue with therapy including speech and physical therapy at this time. Review of Systems 10-point ROS is otherwise unremarkable Physical Examination - Vital Signs Temperature: 97.8 F Blood Pressure: 112/66 Pulse: 99 Respirations: 20 Pulse Ox (%): 95 - Physical Exam General: Alert, In no apparent distress, Oriented x3 Respiratory: Clear to auscultation bilaterally, Normal air movement Cardiovascular: Regular rate/rhythm, Normal S1 S2, No murmurs Gastrointestinal: Normal bowel sounds, Soft and benign, Non-distended, No tenderness Musculoskeletal: No clubbing, No swelling, No tenderness Neurological: Sensation intact, Cranial nerves 3-12 intact - Studies Microbiology Data (last 24 hrs): 06/27/20 16:00 Throat Culture & Sensitivity - Final NORMAL UPPER RESPIRATORY TERRA GROWN. Medications List Reviewed: Yes Assessment & Plan - Problems (Diagnosis) (1) Encephalitis Current Visit: Yes Status: Acute (2) Altered mental status Current Visit: Yes Status: Acute (3) UTI (urinary tract infection) Current Visit: Yes Status: Acute (4) Pneumonia Current Visit: Yes Status: Acute (5) Status post chemotherapy Current Visit: Yes Status: Acute (6) ESRD (end stage renal disease) Current Visit: No Status: Acute (7) Hypertension Current Visit: No Status: Acute Qualifiers: Hypertension type: essential hypertension Qualified Code(s): I10 - Essential (primary) hypertension (8) Multiple myeloma Current Visit: No Status: Acute - Plan Plan: 1. Continue with antibiotic therapy at this time; continue with antiviral therapy as well 2. Neurology consultation appreciated; EEG and lumbar puncture pending 3. IV antibiotic therapy for pneumonia and UTI; nephrology wanted to try acyclovir for possible HSV encephalitis; LP pending 4. Nephrology consultation for hemodialysis 5. Hemoglobin improved. Monitor H&H and additional lab studies pending 6. Discussed the case with Oncology; chemotherapy use for multiple myeloma treatment is really mild and unlikely to cause neurologic deficits 7. Physical therapy and speech therapy evaluation; out of bed & into a chair for meals 8. Monitor hemodynamics closely 9. GI and DVT prophylaxis Discharge Plan: Home Plan to discharge in: Greater than 2 days - Advance Directives Does patient have a Living Will: No Does patient have a Durable POA for Healthcare: No - Code Status/Comfort Care Code Status: Full Code Critical Care: No Time Spent Managing PTS Care (In Minutes): 35
[2020-07-01] MEDS: LOSARTAN POTASSIUM 50 MG TABLET PO SCH (09:00)
[2020-07-01] MEDS: CALCIUM CARBONATE 500 MG TAB PO SCH ×2 (09:00→21:00)
[2020-07-01] MEDS: POTASSIUM 25 MEQ EFFERV TAB PO SCH (09:00)
[2020-07-01] MEDS: NIFEDIPINE XL 30 MG TABLET PO SCH (09:00)
[2020-07-01] MEDS: CEFTRIAXONE/SWI 1gm 1 GM/10 ML SYR IVP SCH (11:05)
[2020-07-01] MEDS: AZITHROMYCIN IV 250 MG in NA CHLORIDE 0.9% 250 ML IVPB SCH (11:06)
[2020-07-01 12:22] LABS: CSF Glucose 71 mg/dL (40-70)
[2020-07-01 13:33] LABS: Appearance CLEAR (CLEAR); Body Fluid Source CSF; Body Fluid WBC 1 /mm^3; Color of fluid Colorless (COLORLESS); Fluid Total Volume 11 ml
--- NOTE | 2020-07-01 13:35 | RAD REPORT ---
EXAM DESCRIPTION: RAD - Lumbar Puncture For Dx - 07/01/2020 10:48 am CLINICAL HISTORY: Alteration of consciousness/encephalitis COMPARISON: None FINDINGS: The risks, benefits and alternatives to the procedure were explained to the patient and in formed consent obtained. The patient was placed prone into the fluoroscopy suite. The skin and subcutaneous tissues were anest hetized with lidocaine. Under fluoroscopic guidance a 22 gauge spinal needle was advanced into the th ecal sac at L2-3 level. 10 cc of CSF was removed and sent to the lab. Patient experienced no immediate complication One fluoroscopic spot image obtained. Fluoroscopy time 1.8 minutes IMPRESSION: Lumbar puncture
[2020-07-01] MEDS ORDERED: METOPROLOL TARTRATE 5 MG/5 ML INJ IV STA (15:31)
[2020-07-01] MEDS: METOPROLOL TARTRATE 5 MG/5 ML INJ IV SCH (15:57)
--- NOTE | 2020-07-01 17:31 | PN ---
Subjective: Ms. Velazquez is resting in bed. She is arousable, but then quickly goes back to sleep. She does mumble words. Family is in the room and she pointed out to her daughter. There is a grand daughter and sister also present. She appears to be in no acute distress. Objective: Vital signs: Blood pressure 156/89, pulse 69 to up to 130, respiratory rate 16 to 20, te mperature 98, ox saturation 96% on room air. Neurologic: Ms. Velazquez can be aroused. She does not have asymmetry of the face in terms of the appearance and the arm and legs do not have a symmetry in terms of tone. She did not volunteer to squeeze fingers or move the legs. From discussi on with the family and Dr. Patterson, the hospitalist at times the patient would speak more appropriately like her baseline level of functioning. I spoke with the daughter that way and Dr. Patterson and then oth er times she would not answer much. Sometimes she appears to have some rhythmic movements of her amalia th and tongue repeatedly stressing her tongue out, but she does appear to pay attention to her surrou ndings and appeared to be listening to conversations. Laboratory/imaging Studies: She did have a lumbar puncture, which showed a protein of 62 slightly el evated and glucose of 71. Protein elevations are probably related to diabetes and blood sugar being elevated. She has a pending VDRL. White blood cell count of 1, red blood cells 146. CSF was clear and colorless, 11 cc removed. She has pending herpes virus PCR and additional sent out with some ant ibodies associated with multiple myeloma, which the patient has. She had an EEG that showed a diffus mary slow background. The EEG was dominated by myogenic artifact, but it still did not show spike wav e discharges, but was consistent with a moderate diffuse nonspecific encephalopathy. She does have c ultures pending from CSF and normal niya was grown from her respiratory cultures. She has negative COVID-19. Assessment: Ms. Velazquez is a 74-year-old patient who has altered mental status of possible multifac torial etiologies including her end-stage renal disease on hemodialysis. 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 She does have a fluctuating level of interacti on. Possibly the patient has some intentional component regarding that. However, seizures can still manifest in the fluctuating confusion. She is on Keppra. She is also on azithromycin along with Rocephin and acyclovir for possible infectious causes of her e ncephalopathy. Plan: 1.Continue current regimen of medications as indicated. 2.The patient's family and the patient actually had not discussed whether or not they would want tub es for feeding or NG tubes or PEG tubes. However, she has not had any significant oral intake for ab out 4 days and at this point has not been awake enough to be able to safely protect her airway. The family will discuss with the patient the possibility of a PEG tube placement and make a determination . She may perhaps qualify for hospice given our myeloma and current condition. It should be noted t he CT scan does not show any evidence of an acute ischemic or hemorrhagic stroke and she has had 2 [address] scans thus far by more than 24 hours. The patient will be followed if she is still in the hospital. RED/PAULINO Voice ID: [id number] Report ID: [id number]
[2020-07-01] MEDS: ATORVASTATIN 40 MG TAB PO SCH (21:00)
[2020-07-02] MEDS: METOPROLOL TARTRATE 5 MG/5 ML INJ IV SCH ×4 (00:28→18:00)
[2020-07-02] MEDS: HYDROCORTISONE SUC 100 MG INJ IV SCH ×4 (00:30→22:00)
[2020-07-02] MEDS ORDERED: WATER FOR INJ,STERILE 10 ML ONE (00:31)
[2020-07-02 08:08] LABS: Absolute Lymphocytes (CBC) 2.2 K/uL (0.7-4.9); Basophils % 0.6 % (0-1.3); Hematocrit 22.4 % (36.0-45.0); Lymphocytes % 19.3 % (15.3-44.8); MPV 7.8 fL (7.6-11.3)
[2020-07-02] MEDS: AZITHROMYCIN IV 250 MG in NA CHLORIDE 0.9% 250 ML IVPB SCH (08:11)
[2020-07-02] MEDS: CEFTRIAXONE/SWI 1gm 1 GM/10 ML SYR IVP SCH (08:11)
[2020-07-02] MEDS: CALCIUM CARBONATE 500 MG TAB PO SCH ×2 (08:12→20:42)
[2020-07-02] MEDS: LOSARTAN POTASSIUM 50 MG TABLET PO SCH (08:12)
[2020-07-02] MEDS: CLOPIDOGREL 75 MG TABLET PO SCH (08:12)
[2020-07-02] MEDS: NIFEDIPINE XL 30 MG TABLET PO SCH (08:12)
[2020-07-02] MEDS: POTASSIUM 25 MEQ EFFERV TAB PO SCH (08:12)
[2020-07-02 08:29] LABS: Protime INR 1.17
[2020-07-02 08:41] LABS: Magnesium 1.8 mg/dL (1.8-2.4); Phosphorus 2.7 mg/dL (2.5-4.9); Potassium 3.9 mmol/L (3.5-5.1)
[2020-07-02 09:53] LABS: Anisocytosis 1+; Blood Morphology Comment NOTED (NOT SEEN); Hypochromasia 1+; Platelet Estimate ADEQ
[2020-07-02] MEDS: EPOETIN ALFA 10,000 UNIT/ML VIAL IV SCH (10:30)
[2020-07-02] MEDS: CALCITROL 0.25 MCG CAP PO SCH (12:00)
[2020-07-02] MEDS: ATORVASTATIN 40 MG TAB PO SCH (20:42)
[2020-07-03] MEDS: METOPROLOL TARTRATE 5 MG/5 ML INJ IV SCH ×3 (05:12→13:00)
[2020-07-03 06:15] LABS: Absolute Lymphocytes (CBC) 2.2 K/uL (0.7-4.9); Basophils % 0.6 % (0-1.3); Hematocrit 23.8 % (36.0-45.0); Lymphocytes % 16.6 % (15.3-44.8); MPV 7.6 fL (7.6-11.3); RBC Red Blood Cell Count 2.76 M/uL (3.86-4.86)
[2020-07-03 06:26] LABS: Potassium 4.2 mmol/L (3.5-5.1)
[2020-07-03] MEDS: HYDROCORTISONE SUC 100 MG INJ IV SCH (06:42)
[2020-07-03] MEDS: ASPIRIN EC 81 MG TAB PO SCH (08:03)
[2020-07-03] MEDS: CLOPIDOGREL 75 MG TABLET PO SCH (08:04)
[2020-07-03] MEDS: LOSARTAN POTASSIUM 50 MG TABLET PO SCH (08:04)
[2020-07-03] MEDS: POTASSIUM 25 MEQ EFFERV TAB PO SCH (08:04)
[2020-07-03] MEDS: CALCIUM CARBONATE 500 MG TAB PO SCH (08:04)
[2020-07-03] MEDS: CEFTRIAXONE/SWI 1gm 1 GM/10 ML SYR IVP SCH (08:24)
[2020-07-03 09:13] LABS: Blood Morphology Comment NOTED (NOT SEEN); Platelet Estimate ADEQ; Rouleau NOTED
[2020-07-03] MEDS: AZITHROMYCIN IV 250 MG in NA CHLORIDE 0.9% 250 ML IVPB SCH (09:32)
--- NOTE | 2020-07-03 12:05 | PN ---
Date of Progress Note: 07/02/2020 Chief Complaint: End-stage renal disease, on dialysis. Subjective: The patient was scheduled dialysis today and procedure was interrupted because of techni sae difficulties with water supply. I discussed case with the nurses on the floor as well as dialysi s nurse and dialysis is re-scheduled for tomorrow. The patient was admitted for suspected encephalit is. She has altered mental status. She is tolerating by mouth food. Today, she consumed some break fast. Review of Systems: The patient is lethargic, cannot provide review of systems. Physical Examination: Lungs: Clear to auscultation bilaterally. Heart: S1, S2. A 2/6 systolic murmur in the left lower sternal border. Extremities: Minimal edema. Impression And Plan: 1.End-stage renal disease. Next dialysis tomorrow. Procedure is rescheduled due to technical diffi culties with water supply. 2.Secondary hyperparathyroidism with hypocalcemia. The patient will have high calcium bath. Contin ue calcitriol. Monitor calcium level and replace as needed. 3.Anemia of multifactorial etiology. The patient has history of myeloma and chronic kidney disease. Continue YUMIKO. Follow up with Oncology. 4.Altered mental status, encephalitis. The patient has been treated with an antiviral medication by neurologist. 5.Hyponatremia. The patient received dialysis. Monitor sodium level. Continue p.o. fluid restrict ion. 6.Elevated BNP, history of congestive heart failure. Volemia control with dialysis. Continue curre nt treatment. EB/MODL Voice ID: [id number] Report ID: [id number]
[2020-07-03 13:16] VITALS: O2SAT 98
[2020-07-03] MEDS ORDERED: CALCIUM CARBONATE 500 MG TAB PO SCH (14:00)
[2020-07-03] MEDS ORDERED: LORazepam 2 MG/ML VIAL IV ONE (14:08)
[2020-07-03] MEDS ORDERED: HYDROCORTISONE SUC 100 MG INJ IV SCH (15:00)
[2020-07-03 17:38] VITALS: BP 93/60; TEMP 97.7
--- NOTE | 2020-07-03 22:21 | PN ---
Date of Progress Note: 07/03/2020 Chief Complaint: End-stage renal disease, on dialysis. Subjective: The patient has been dialyzed for metabolic clearance and received ultrafiltration. The patient is to be dialyzed as soon as possible and she will be transferred to higher level of care. The patient is tolerating by mouth intake. She denies complaints, although she remains lethargic. Review of Systems: Unobtainable. Physical Examination: Lungs: Diminished breath sounds at bases. Heart: S1, S2. A 2/6 systolic murmur at left lower sternal border. Extremities: Minimal edema. Impression And Plan: 1.End-stage renal disease. Next dialysis will be done at transfer hospital. The patient will ajay nue dialysis for metabolic clearance. Electrolytes and volemia stable. 2.Secondary hyperparathyroidism with hypocalcemia. Continue calcium replacement and calcitriol. Ad just calcium bath. 3.Anemia of multifactorial etiology. The patient has history of myeloma and chronic kidney disease. Continue YUMIKO. Follow up with Oncology. 4.Altered mental status and encephalitis as per Neurology. 5.Hyponatremia. Monitor sodium level. Continue p.o. fluid restriction. 6.Elevated BNP and history of congestive heart failure. Volemia control with dialysis. Continue cu rrent treatment. EB/MODL Voice ID: [id number] Report ID: [id number]
--- NOTE | 2020-07-04 07:59 | EEG ---
CHART: [id number] TEST ID#: [id number] DATE OF STUDY: 06/30/2020 THE EEG WAS RECORDED PORTABLE IN THE PATIENT'S ROOM ON A 17 CHANNEL MACHINE. ELECTRODES WERE APPLIED IN THE USUAL MANNER USING THE INTERNATIONAL 10-20 SYSTEM. THE WAKING BACKGROUND RHYTHM IN THIS RECORD CONSISTS OF POORLY DEVELOPED AND POORLY ORGANIZED WAVES OF 3-5 HZ., IN A WIDE DISTRIBUTION WHICH DO NOT ATTENUATE NORMALLY WITH EYE OPENING. THE EEG IS LARGELY OBSCURRED BY EMG ARTIFACT. MODERATE VOLTAGE 3-5 HZ MIXED WITH 1.5-3 HZ ACTIVITY IS EXPRESSED DIFFUSELY. THERE ARE NO FOCAL OR LATERALIZING FEATURES. NO EPILEPTIFORM ACTIVITY APPEARS. SLEEP DID NOT OCCUR. HYPERVENTILATION WAS NOT PERFORMED. PHOTIC STIMULATION PRODUCED NO DRIVING BILATERALLY. IMPRESSION: THIS IS A MODERATELY ABNORMAL EEG DUE TO A MODERATELY SLOW BACKGROUND. THIS IS NON-SPECIFIC FINDING CONSISTENT WITH THE PRESENCE OF A MODERATE DIFFUSE DISTRUBANCE IN CEREBRAL FUNCTION.
[2020-07-04] MEDS ORDERED: VITAMIN D 1000 UNIT TAB PO SCH (09:00)
== END 2020-07-03 15:59 | disposition short-term general hospital (02) | DRG 291 ==
LOC: ER 13:17 → ERHOLD 17:28 → 2ND 19:48
PROVIDERS: ADMIT Hospitalist; ATTEND Hospitalist
PROC: 30233N1 Transfusion of Nonautologous Red Blood Cells into Peripheral Vein, Percutaneous Approach (ICD-10-PCS; 2020-06-27)
PROC: 5A1D70Z Performance of Urinary Filtration, Intermittent, Less than 6 Hours Per Day (ICD-10-PCS; 2020-06-28)
PROC: 4A00X4Z Measurement of Central Nervous Electrical Activity, External Approach (ICD-10-PCS; 2020-06-30)
PROC: 009U3ZX Drainage of Spinal Canal, Percutaneous Approach, Diagnostic (ICD-10-PCS; principal; 2020-07-01)
DX: I13.2 Hypertensive heart and chronic kidney disease with heart failure and with stage 5 chronic kidney disease, or end stage renal disease (principal); J18.9 Pneumonia, unspecified organism; N18.6 End stage renal disease; B00.4 Herpesviral encephalitis; C90.00 Multiple myeloma not having achieved remission; N39.0 Urinary tract infection, site not specified; E44.0 Moderate protein-calorie malnutrition; I50.32 Chronic diastolic (congestive) heart failure; G93.40 Encephalopathy, unspecified; E87.1 Hypo-osmolality and hyponatremia; D63.1 Anemia in chronic kidney disease; N25.0 Renal osteodystrophy; M89.9 Disorder of bone, unspecified; E87.6 Hypokalemia; E21.1 Secondary hyperparathyroidism, not elsewhere classified; R79.89 Other specified abnormal findings of blood chemistry; T45.1X5A Adverse effect of antineoplastic and immunosuppressive drugs, initial encounter; Z99.2 Dependence on renal dialysis; Z68.24 Body mass index [BMI] 24.0-24.9, adult; Z79.899 Other long term (current) drug therapy; Z20.828 Contact with and (suspected) exposure to other viral communicable diseases
CPT/HCPCS: 36415; 36430; 51702; 70450; 70551; 71045; 77003; 80048; 80053; 80061; 80076; 81003; 81015; 82140; 82607; 82746; 82945; 82947; 83010; 83605; 83615; 83735; 83880; 84100; 84145; 84157; 84436; 84443; 84484; 85025; 85044; 85610; 85652; 85730; 86140; 86592; 86850; 86900; 86901; 87040; 87070; 87081; 87086; 87088; 87804; 89050; 90935; 92610; 93005; 93306; 93880; 95816; 96365; 96366; 97112; 97161; 99285; J0133; J0456; J0696; J1644; J1720; J1940; J7050; P9016; Q5105; U0002

== ENCOUNTER 2020-08-17 20:41 | Emergency (ER) | payer OTHER ==
--- OUTSIDE RECORDS SUMMARY | 2020-08-17 20:45 | XMS REPORT | Clinical Summary ---
:[address] [facility] Address [address] [place] [address] Care Team Providers Name Role Phone Unavailable Primary Care Provider Unavailable Allergies No Known Allergies Medications Medication Sig Dispensed Refills Start End Date Status Date losartan (COZAAR) Take 50 mg by 0 Active 50 MG tablet mouth daily. ondansetron Take 4 mg by mouth 0 Active (ZOFRAN) 4 MG 3 (three) times tabletIndications daily as needed : cancer for Nausea. chemotherapy-phan luz nausea and vomiting valACYclovir Take 500 mg by 0 Ac tive (VALTREX) 500 MG mouth daily. tablet calcium carbonate Take 2 tablets 0 0 Active (TUMS) 500 mg (1,000 mg total) 0 21 chewable tablet by mouth nightly. levETIRAcetam Take 1 tablet (250 0 2 0 Active (KEPPRA) 250 MG mg total) by mouth 0 21 tablet 2 (two) times daily. pantoprazole Take 1 tablet (40 0 Active (PROTONIX) 40 MG mg total) by mouth 0 tablet 2 (two) times daily For 8 weeks. Missing or Inject 3.5 mg 0 08/04/20 Disco ntinued Non-Formulary subcutaneously 20 ( Stop Taking at MedicationIndicat once a week Discharge) ions: Bortezomib . Missing or Take 5 mg by 0 08/04/20 Discon tinued Non-Formulary mouth. 20 (Stop Taking at MedicationIndicat Di scharge) ions: Lenalidomide -- take for 14 days , and 7 days off unsure what day dexAMETHasone Take 20 mg by 0 08/04/20 Di scontinued (DECADRON) 6 MG mouth once evry 20 (Stop Taking at tabletIndications after Discharge) : every chemo. after Chemo Active Problems Problem Noted Date Multiple myeloma without remission 07/16/2020 Anemia, unspecified type 07/11/2020 Acute metabolic encephalopathy 07/04/2020 Altered mental status 07/03/2020 ESRD needing dialysis Encounters Date Type Specialty Care Team Description 07/21/2020 Anesthesia Event Gastroenterology Jaron Morrell MD 07/21/2020 Surgery Gastroenterology Danielle, UPPER [place] ENDOSCOPY,FELIX Tyler MD 07/03/2020 Hospital Encounter Oncology Shinthia, Altered m ental status, unspecified altered mental status type (Primary Dx); - MD Ronak Anemia, unspecified type; 08/05/2020 Ari Lujan Acute metaboli c encephalopathy; MD Jose Luis New onset seizure (HCC); Ashley Hahn ESRD needing dialysis (HCC); MD Sabrina Transient alteration of awareness Latasha Michael MD Giveon, Ron, MD Joudah, Fady Ahmad, MD 07/03/2020 Orders Only General Internal Medicine 07/03/2020 Travel 05/11/2020 Lab Requisition Lab after 08/17/2019 Social History Tobacco Use Types Packs/Day Years Used Date Never Smoker Smokeless Tobacco: Never Used Alcohol Use Drinks/Week oz/Week Comments No Alcohol Habits Answer Date Recorded How often do you have a drink containing alcohol? Never 07/04/2020 How many drinks containing alcohol do you have on a typical Not asked day when you are drinking? How often do you have six or more drinks on one occasion? No t asked Sex Assigned at Date Recorded Not on file Last Filed Vital Signs Vital Sign Reading Time Taken Comments Blood Pressure 119/69 08/05/2020 4:24 PM CDT Pulse 82 08/05/2020 4:24 PM CDT Temperature 36.6 C (97.8 F) 08/05/2020 4:24 PM CDT Respiratory Rate 18 08/05/2020 4:24 PM CDT Oxygen Saturation 99% 08/05/2020 4:24 PM CDT Inhaled Oxygen Concentration 21% 07/31/2020 8:08 PM CDT Weight 52.5 kg (115 lb 11.9 oz) 08/05/2020 12:19 PM CDT Height 154.9 cm (5' 0.98") 07/04/2020 8:00 AM CDT Body Mass Index 21.88 07/04/2020 8:00 AM CDT Plan of Treatment Health Maintenance Due Date Last Done Comments BREAST CANCER SCREENING 1945 COLON CANCER SCREENING COLONOSCOPY 1945 PNEUMOCOCCAL 65+ YRS (1 of 1 - [id number]) 2010 Medicare IPPE (WELCOME TO MEDICARE) 10/07/2019 INFLUENZA VACCINE (#1) 2020 Procedures Procedure Name Priority Date/Time Associated Diagnosis Comme nts POCT-GLUCOSE METER Routine 08/05/2020 5:11 Resul ts for this PM CDT procedure are i n the results section. POCT-GLUCOSE METER Routine 08/05/2020 1:05 Resul ts for this PM CDT procedure are i n the results section. HEMODIALYSIS INPATIENT Routine 08/05/2020 12:38 R esults for this PM CDT procedure are i n the results section. POCT-GLUCOSE METER Routine 08/05/2020 7:17 Resul ts for this AM CDT procedure are i n the results section. COVID19 ([facility]) Routine 08/05/2020 6:15 Re sults for this AM CDT procedure are i n the results section. SARS-COV2/RT-PCR ([facility] Routine 08/05/2020 6:15 R esults for this & REF LABS) AM CDT procedure are i n the results section. CBC W/PLT COUNT & AUTO STAT 08/05/2020 3:52 R esults for this DIFFERENTIAL AM CDT procedure are i n the results section. MAGNESIUM Routine 08/05/2020 3:52 Results for this AM CDT procedure are i n the results section. PHOSPHORUS Routine 08/05/2020 3:52 Results for this AM CDT procedure are i n the results section. CBC W/PLT COUNT & AUTO STAT 08/05/2020 3:52 R esults for this DIFFERENTIAL AM CDT procedure are i n the results section. BASIC METABOLIC PANEL Routine 08/05/2020 3:52 Re sults for this (7) AM CDT procedure are i n the results section. POCT-GLUCOSE METER Routine 08/04/2020 9:29 Resul ts for this PM CDT procedure are i n the results section. HEPATITIS B CORE Add-On 08/04/2020 6:36 Results for this ANTIBODY, IGM PM CDT procedure are in the results section. HEPATITIS B PANEL Routine 08/04/2020 6:36 Result s for this PM CDT procedure are i n the results section. POCT-GLUCOSE METER Routine 08/04/2020 4:44 Resul ts for this PM CDT procedure are i n the results section. POCT-GLUCOSE METER Routine 08/04/2020 8:52 Resul ts for this AM CDT procedure are i n the results section. (CELLAVISION MANUAL STAT 08/04/2020 3:54 Resu lts for this DIFF) AM CDT procedure are i n the results section. CBC W/PLT COUNT & AUTO STAT 08/04/2020 3:54 R esults for this DIFFERENTIAL AM CDT procedure are i n the results section. MAGNESIUM Routine 08/04/2020 3:54 Results for this AM CDT procedure are i n the results section. PHOSPHORUS Routine 08/04/2020 3:54 Results for this AM CDT procedure are i n the results section. CBC W/PLT COUNT & AUTO STAT 08/04/2020 3:54 R esults for this DIFFERENTIAL AM CDT procedure are i n the results section. BASIC METABOLIC PANEL Routine 08/04/2020 3:54 Re sults for this (7) AM CDT procedure are i n the results section. POCT-GLUCOSE METER Routine 08/03/2020 8:58 Resul ts for this PM CDT procedure are i n the results section. SARS-COV2/RT-PCR ([facility] Routine 08/03/2020 6:00 R esults for this & REF LABS) PM CDT procedure are i n the results section. POCT-GLUCOSE METER Routine 08/03/2020 5:43 Resul ts for this PM CDT procedure are i n the results section. POCT-GLUCOSE METER Routine 08/03/2020 8:37 Resul ts for this AM CDT procedure are i n the results section. HEMODIALYSIS INPATIENT Routine 08/03/2020 8:17 AM CDT CBC W/PLT COUNT & AUTO STAT 08/03/2020 4:00 R esults for this DIFFERENTIAL AM CDT procedure are i n the results section. MAGNESIUM Routine 08/03/2020 4:00 Results for this AM CDT procedure are i n the results section. PHOSPHORUS Routine 08/03/2020 4:00 Results for this AM CDT procedure are i n the results section. CBC W/PLT COUNT & AUTO STAT 08/03/2020 4:00 R esults for this DIFFERENTIAL AM CDT procedure are i n the results section. BASIC METABOLIC PANEL Routine 08/03/2020 4:00 Re sults for this (7) AM CDT procedure are i n the results section. POCT-GLUCOSE METER Routine 08/02/2020 10:04 Resul ts for this PM CDT procedure are i n the results section. POCT-GLUCOSE METER Routine 08/02/2020 5:53 Resul ts for this PM CDT procedure are i n the results section. POCT-GLUCOSE METER Routine 08/02/2020 5:25 Resul ts for this PM CDT procedure are i n the results section. POCT-GLUCOSE METER Routine 08/02/2020 12:22 Resul ts for this PM CDT procedure are i n the results section. POCT-GLUCOSE METER Routine 08/02/2020 8:14 Resul ts for this AM CDT procedure are i n the results section. POCT-GLUCOSE METER Routine 08/02/2020 6:50 Resul ts for this AM CDT procedure are i n the results section. CBC W/PLT COUNT & AUTO STAT 08/02/2020 3:37 R esults for this DIFFERENTIAL AM CDT procedure are i n the results section. MAGNESIUM Routine 08/02/2020 3:37 Results for this AM CDT procedure are i n the results section. PHOSPHORUS Routine 08/02/2020 3:37 Results for this AM CDT procedure are i n the results section. CBC W/PLT COUNT & AUTO STAT 08/02/2020 3:37 R esults for this DIFFERENTIAL AM CDT procedure are i n the results section. IMMUNOGLOBULIN G (IGG) Routine 08/02/2020 3:37 R esults for this AM CDT procedure are i n the results section. BASIC METABOLIC PANEL Routine 08/02/2020 3:37 Re sults for this (7) AM CDT procedure are i n the results section. KAPPA / LAMBDA LIGHT Routine 08/02/2020 3:36 Res ults for this CHAINS, SERUM AM CDT procedure are in the results section. HEMODIALYSIS INPATIENT Routine 08/01/2020 11:56 R esults for this PM CDT procedure are i n the results section. POCT-GLUCOSE METER Routine 08/01/2020 5:11 Resul ts for this PM CDT procedure are i n the results section. PHOSPHORUS Add-On 08/01/2020 3:42 Results for this PM CDT procedure are i n the results section. BASIC METABOLIC PANEL Routine 08/01/2020 3:42 Re sults for this (7) PM CDT procedure are i n the results section. POCT-GLUCOSE METER Routine 08/01/2020 12:47 Resul ts for this PM CDT procedure are i n the results section. POCT-GLUCOSE METER Routine 08/01/2020 7:39 Resul ts for this AM CDT procedure are i n the results section. CBC W/PLT COUNT & AUTO STAT 08/01/2020 3:40 R esults for this DIFFERENTIAL AM CDT procedure are i n the results section. MAGNESIUM Routine 08/01/2020 3:40 Results for this AM CDT procedure are i n the results section. PHOSPHORUS Routine 08/01/2020 3:40 Results for this AM CDT procedure are i n the results section. CBC W/PLT COUNT & AUTO STAT 08/01/2020 3:40 R esults for this DIFFERENTIAL AM CDT procedure are i n the results section. HEPATIC FUNCTION PANEL Routine 08/01/2020 3:40 R esults for this AM CDT procedure are i n the results section. BASIC METABOLIC PANEL Routine 08/01/2020 3:40 Re sults for this (7) AM CDT procedure are i n the results section. PREPARE LEUKO-REDUCED Routine 07/31/2020 11:54 Re sults for this RBC PM CDT procedure are i n the results section. POCT-GLUCOSE METER Routine 07/31/2020 9:24 Resul ts for this PM CDT procedure are i n the results section. POCT-GLUCOSE METER Routine 07/31/2020 11:20 Resul ts for this AM CDT procedure are i n the results section. POCT-GLUCOSE METER Routine 07/31/2020 7:38 Resul ts for this AM CDT procedure are i n the results section. MAGNESIUM Routine 07/31/2020 7:36 Results for this AM CDT procedure are i n the results section. PHOSPHORUS Routine 07/31/2020 7:36 Results for this AM CDT procedure are i n the results section. BASIC METABOLIC PANEL Routine 07/31/2020 7:36 Re sults for this (7) AM CDT procedure are i n the results section. POCT-GLUCOSE METER Routine 07/31/2020 7:19 Resul ts for this AM CDT procedure are i n the results section. CBC W/PLT COUNT & AUTO STAT 07/31/2020 6:19 R esults for this DIFFERENTIAL AM CDT procedure are i n the results section. CBC W/PLT COUNT & AUTO STAT 07/31/2020 6:19 R esults for this DIFFERENTIAL AM CDT procedure are i n the results section. POCT-GLUCOSE METER Routine 07/30/2020 9:36 Resul ts for this PM CDT procedure are i n the results section. POCT-GLUCOSE METER Routine 07/30/2020 4:58 Resul ts for this PM CDT procedure are i n the results section. POCT-GLUCOSE METER Routine 07/30/2020 12:09 Resul ts for this PM CDT procedure are i n the results section. TRANSFUSE Routine 07/30/2020 10:22 LEUKO-REDUCED RED AM CDT BLOOD CELLS POCT-GLUCOSE METER Routine 07/30/2020 8:49 Resul ts for this AM CDT procedure are i n the results section. TYPE AND SCREEN, Routine 07/30/2020 7:54 Results for this AUTOMATED AM CDT procedure are i n the results section. HEMODIALYSIS INPATIENT Routine 07/30/2020 7:50 AM CDT HEPATITIS B SURFACE Routine 07/30/2020 7:44 Resu lts for this ANTIGEN AM CDT procedure are i n the results section. CBC W/PLT COUNT & AUTO STAT 07/30/2020 4:48 R esults for this DIFFERENTIAL AM CDT procedure are i n the results section. MAGNESIUM Routine 07/30/2020 4:48 Results for this AM CDT procedure are i n the results section. PHOSPHORUS Routine 07/30/2020 4:48 Results for this AM CDT procedure are i n the results section. CBC W/PLT COUNT & AUTO STAT 07/30/2020 4:48 R esults for this DIFFERENTIAL AM CDT procedure are i n the results section. BASIC METABOLIC PANEL Routine 07/30/2020 4:48 Re sults for this (7) AM CDT procedure are i n the results section. POCT-GLUCOSE METER Routine 07/29/2020 10:07 Resul ts for this PM CDT procedure are i n the results section. POCT-GLUCOSE METER Routine 07/29/2020 5:01 Resul ts for this PM CDT procedure are i n the results section. POCT-GLUCOSE METER Routine 07/29/2020 11:57 Resul ts for this AM CDT procedure are i n the results section. POCT-GLUCOSE METER Routine 07/29/2020 7:58 Resul ts for this AM CDT procedure are i n the results section. CBC W/PLT COUNT & AUTO STAT 07/29/2020 4:11 R esults for this DIFFERENTIAL AM CDT procedure are i n the results section. MAGNESIUM Routine 07/29/2020 4:11 Results for this AM CDT procedure are i n the results section. PHOSPHORUS Routine 07/29/2020 4:11 Results for this AM CDT procedure are i n the results section. CBC W/PLT COUNT & AUTO STAT 07/29/2020 4:11 R esults for this DIFFERENTIAL AM CDT procedure are i n the results section. BASIC METABOLIC PANEL Routine 07/29/2020 4:11 Re sults for this (7) AM CDT procedure are i n the results section. POCT-GLUCOSE METER Routine 07/28/2020 10:23 Resul ts for this PM CDT procedure are i n the results section. POCT-GLUCOSE METER Routine 07/28/2020 6:13 Resul ts for this PM CDT procedure are i n the results section. POCT-GLUCOSE METER Routine 07/28/2020 1:02 Resul ts for this PM CDT procedure are i n the results section. CBC W/PLT COUNT & AUTO STAT 07/28/2020 3:54 R esults for this DIFFERENTIAL AM CDT procedure are i n the results section. MAGNESIUM Routine 07/28/2020 3:54 Results for this AM CDT procedure are i n the results section. PHOSPHORUS Routine 07/28/2020 3:54 Results for this AM CDT procedure are i n the results section. CBC W/PLT COUNT & AUTO STAT 07/28/2020 3:54 R esults for this DIFFERENTIAL AM CDT procedure are i n the results section. BASIC METABOLIC PANEL Routine 07/28/2020 3:54 Re sults for this (7) AM CDT procedure are i n the results section. POCT-GLUCOSE METER Routine 07/27/2020 10:19 Resul ts for this PM CDT procedure are i n the results section. SARS-COV2/RT-PCR ([facility] Routine 07/27/2020 6:28 R esults for this & REF LABS) PM CDT procedure are i n the results section. POCT-GLUCOSE METER Routine 07/27/2020 5:23 Resul ts for this PM CDT procedure are i n the results section. POCT-GLUCOSE METER Routine 07/27/2020 11:25 Resul ts for this AM CDT procedure are i n the results section. POCT-GLUCOSE METER Routine 07/27/2020 8:20 Resul ts for this AM CDT procedure are i n the results section. CBC W/PLT COUNT & AUTO STAT 07/27/2020 4:01 R esults for this DIFFERENTIAL AM CDT procedure are i n the results section. MAGNESIUM Routine 07/27/2020 4:01 Results for this AM CDT procedure are i n the results section. PHOSPHORUS Routine 07/27/2020 4:01 Results for this AM CDT procedure are i n the results section. CBC W/PLT COUNT & AUTO STAT 07/27/2020 4:01 R esults for this DIFFERENTIAL AM CDT procedure are i n the results section. BASIC METABOLIC PANEL Routine 07/27/2020 4:01 Re sults for this (7) AM CDT procedure are i n the results section. PREPARE LEUKO-REDUCED Routine 07/26/2020 11:54 Re sults for this RBC PM CDT procedure are i n the results section. POCT-GLUCOSE METER Routine 07/26/2020 9:35 Resul ts for this PM CDT procedure are i n the results section. POCT-GLUCOSE METER Routine 07/26/2020 4:49 Resul ts for this PM CDT procedure are i n the results section. HEMODIALYSIS INPATIENT Routine 07/26/2020 12:00 R esults for this PM CDT procedure are i n the results section. POCT-GLUCOSE METER Routine 07/26/2020 11:53 Resul ts for this AM CDT procedure are i n the results section. POCT-GLUCOSE METER Routine 07/26/2020 8:07 Resul ts for this AM CDT procedure are i n the results section. CBC W/PLT COUNT & AUTO STAT 07/26/2020 4:44 R esults for this DIFFERENTIAL AM CDT procedure are i n the results section. MAGNESIUM Routine 07/26/2020 4:44 Results for this AM CDT procedure are i n the results section. PHOSPHORUS Routine 07/26/2020 4:44 Results for this AM CDT procedure are i n the results section. CBC W/PLT COUNT & AUTO STAT 07/26/2020 4:44 R esults for this DIFFERENTIAL AM CDT procedure are i n the results section. BASIC METABOLIC PANEL Routine 07/26/2020 4:44 Re sults for this (7) AM CDT procedure are i n the results section. POCT-GLUCOSE METER Routine 07/25/2020 9:14 Resul ts for this PM CDT procedure are i n the results section. TRANSFUSE Routine 07/25/2020 5:34 LEUKO-REDUCED RED PM CDT BLOOD CELLS POCT-GLUCOSE METER Routine 07/25/2020 4:57 Resul ts for this PM CDT procedure are i n the results section. POCT-GLUCOSE METER Routine 07/25/2020 12:06 Resul ts for this PM CDT procedure are i n the results section. ANTIBODY SCREEN Routine 07/25/2020 9:35 Results for this AM CDT procedure are i n the results section. ABORH, MANUAL Routine 07/25/2020 9:35 Results fo r this AM CDT procedure are i n the results section. POCT-GLUCOSE METER Routine 07/25/2020 7:58 Resul ts for this AM CDT procedure are i n the results section. CBC W/PLT COUNT & AUTO STAT 07/25/2020 4:45 R esults for this DIFFERENTIAL AM CDT procedure are i n the results section. MAGNESIUM Routine 07/25/2020 4:45 Results for this AM CDT procedure are i n the results section. PHOSPHORUS Routine 07/25/2020 4:45 Results for this AM CDT procedure are i n the results section. CBC W/PLT COUNT & AUTO STAT 07/25/2020 4:45 R esults for this DIFFERENTIAL AM CDT procedure are i n the results section. KAPPA / LAMBDA LIGHT Routine 07/25/2020 4:45 Res ults for this CHAINS, SERUM AM CDT procedure are in the results section. IMMUNOGLOBULIN G (IGG) Routine 07/25/2020 4:45 R esults for this AM CDT procedure are i n the results section. VISCOSITY, SERUM Routine 07/25/2020 4:45 Results for this AM CDT procedure are i n the results section. BASIC METABOLIC PANEL Routine 07/25/2020 4:45 Re sults for this (7) AM CDT procedure are i n the results section. POCT-GLUCOSE METER Routine 07/24/2020 10:51 Resul ts for this PM CDT procedure are i n the results section. POCT-GLUCOSE METER Routine 07/24/2020 5:49 Resul ts for this PM CDT procedure are i n the results section. POCT-GLUCOSE METER Routine 07/24/2020 12:20 Resul ts for this PM CDT procedure are i n the results section. POCT-GLUCOSE METER Routine 07/24/2020 8:31 Resul ts for this AM CDT procedure are i n the results section. CBC W/PLT COUNT & AUTO STAT 07/24/2020 5:33 R esults for this DIFFERENTIAL AM CDT procedure are i n the results section. PHOSPHORUS Routine 07/24/2020 5:33 Results for this AM CDT procedure are i n the results section. CBC W/PLT COUNT & AUTO STAT 07/24/2020 5:33 R esults for this DIFFERENTIAL AM CDT procedure are i n the results section. MAGNESIUM STAT 07/24/2020 5:33 Results for this AM CDT procedure are i n the results section. HEPATIC FUNCTION PANEL Routine 07/24/2020 5:33 R esults for this AM CDT procedure are i n the results section. BASIC METABOLIC PANEL Routine 07/24/2020 5:33 Re sults for this (7) AM CDT procedure are i n the results section. POCT-GLUCOSE METER Routine 07/23/2020 9:25 Resul ts for this PM CDT procedure are i n the results section. HEMODIALYSIS INPATIENT Routine 07/23/2020 8:06 R esults for this PM CDT procedure are i n the results section. POCT-GLUCOSE METER Routine 07/23/2020 12:01 Resul ts for this PM CDT procedure are i n the results section. POCT-GLUCOSE METER Routine 07/23/2020 8:03 Resul ts for this AM CDT procedure are i n the results section. CBC W/PLT COUNT & AUTO STAT 07/23/2020 4:09 R esults for this DIFFERENTIAL AM CDT procedure are i n the results section. PHOSPHORUS Routine 07/23/2020 4:09 Results for this AM CDT procedure are i n the results section. CBC W/PLT COUNT & AUTO STAT 07/23/2020 4:09 R esults for this DIFFERENTIAL AM CDT procedure are i n the results section. MAGNESIUM STAT 07/23/2020 4:09 Results for this AM CDT procedure are i n the results section. BASIC METABOLIC PANEL Routine 07/23/2020 4:09 Re sults for this (7) AM CDT procedure are i n the results section. POCT-GLUCOSE METER Routine 07/22/2020 9:31 Resul ts for this PM CDT procedure are i n the results section. POCT-GLUCOSE METER Routine 07/22/2020 4:59 Resul ts for this PM CDT procedure are i n the results section. POCT-GLUCOSE METER Routine 07/22/2020 12:17 Resul ts for this PM CDT procedure are i n the results section. POCT-GLUCOSE METER Routine 07/22/2020 7:50 Resul ts for this AM CDT procedure are i n the results section. CBC W/PLT COUNT & AUTO STAT 07/22/2020 4:45 R esults for this DIFFERENTIAL AM CDT procedure are i n the results section. PHOSPHORUS Routine 07/22/2020 4:45 Results for this AM CDT procedure are i n the results section. CBC W/PLT COUNT & AUTO STAT 07/22/2020 4:45 R esults for this DIFFERENTIAL AM CDT procedure are i n the results section. MAGNESIUM STAT 07/22/2020 4:45 Results for this AM CDT procedure are i n the results section. BASIC METABOLIC PANEL Routine 07/22/2020 4:45 Re sults for this (7) AM CDT procedure are i n the results section. HEMODIALYSIS INPATIENT Routine 07/21/2020 11:12 R esults for this PM CDT procedure are i n the results section. POCT-GLUCOSE METER Routine 07/21/2020 10:52 Resul ts for this PM CDT procedure are i n the results section. POCT-GLUCOSE METER Routine 07/21/2020 10:33 Resul ts for this PM CDT procedure are i n the results section. POCT-GLUCOSE METER Routine 07/21/2020 5:49 Resul ts for this PM CDT procedure are i n the results section. POCT-GLUCOSE METER Routine 07/21/2020 4:57 Resul ts for this PM CDT procedure are i n the results section. REPORT OF PROCEDURE - 07/21/2020 3:42 ENDOSCOPY URL PM CDT UPPER ENDOSCOPY,PEG 07/21/2020 2:50 Malnutrition of PM CDT moderate degree (HCC) POCT-GLUCOSE METER Routine 07/21/2020 1:04 Resul ts for this PM CDT procedure are i n the results section. POCT-GLUCOSE METER Routine 07/21/2020 12:26 Resul ts for this PM CDT procedure are i n the results section. POCT-GLUCOSE METER Routine 07/21/2020 8:19 Resul ts for this AM CDT procedure are i n the results section. CBC W/PLT COUNT & AUTO STAT 07/21/2020 4:37 R esults for this DIFFERENTIAL AM CDT procedure are i n the results section. PT/APTT Routine 07/21/2020 4:37 Results for this AM CDT procedure are i n the results section. PHOSPHORUS Routine 07/21/2020 4:37 Results for this AM CDT procedure are i n the results section. CBC W/PLT COUNT & AUTO STAT 07/21/2020 4:37 R esults for this DIFFERENTIAL AM CDT procedure are i n the results section. MAGNESIUM STAT 07/21/2020 4:37 Results for this AM CDT procedure are i n the results section. BASIC METABOLIC PANEL Routine 07/21/2020 4:37 Re sults for this (7) AM CDT procedure are i n the results section. POCT-GLUCOSE METER Routine 07/20/2020 4:38 Resul ts for this PM CDT procedure are i n the results section. POCT-GLUCOSE METER Routine 07/20/2020 12:06 Resul ts for this PM CDT procedure are i n the results section. SARS-COV2/RT-PCR ([facility] STAT 07/20/2020 8:49 R esults for this & REF LABS) AM CDT procedure are i n the results section. POCT-GLUCOSE METER Routine 07/20/2020 7:40 Resul ts for this AM CDT procedure are i n the results section. CBC W/PLT COUNT & AUTO STAT 07/20/2020 3:35 R esults for this DIFFERENTIAL AM CDT procedure are i n the results section. CBC W/PLT COUNT & AUTO STAT 07/20/2020 3:35 R esults for this DIFFERENTIAL AM CDT procedure are i n the results section. PHOSPHORUS Routine 07/20/2020 3:34 Results for this AM CDT procedure are i n the results section. MAGNESIUM STAT 07/20/2020 3:34 Results for this AM CDT procedure are i n the results section. KAPPA / LAMBDA LIGHT Routine 07/20/2020 3:34 Res ults for this CHAINS, SERUM AM CDT procedure are in the results section. IMMUNOGLOBULIN G (IGG) Routine 07/20/2020 3:34 R esults for this AM CDT procedure are i n the results section. BASIC METABOLIC PANEL Routine 07/20/2020 3:34 Re sults for this (7) AM CDT procedure are i n the results section. PREPARE LEUKO-REDUCED Routine 07/19/2020 11:54 Re sults for this RBC PM CDT procedure are i n the results section. POCT-GLUCOSE METER Routine 07/19/2020 6:14 Resul ts for this PM CDT procedure are i n the results section. POCT-GLUCOSE METER Routine 07/19/2020 5:26 Resul ts for this PM CDT procedure are i n the results section. POCT-GLUCOSE METER Routine 07/19/2020 4:52 Resul ts for this PM CDT procedure are i n the results section. HEMODIALYSIS INPATIENT Routine 07/19/2020 3:27 PM CDT HEMODIALYSIS INPATIENT Routine 07/19/2020 12:47 PM CDT POCT-GLUCOSE METER Routine 07/19/2020 11:24 Resul ts for this AM CDT procedure are i n the results section. POCT-GLUCOSE METER Routine 07/19/2020 7:51 Resul ts for this AM CDT procedure are i n the results section. CBC W/PLT COUNT & AUTO STAT 07/19/2020 3:39 R esults for this DIFFERENTIAL AM CDT procedure are i n the results section. PHOSPHORUS Routine 07/19/2020 3:39 Results for this AM CDT procedure are i n the results section. CBC W/PLT COUNT & AUTO STAT 07/19/2020 3:39 R esults for this DIFFERENTIAL AM CDT procedure are i n the results section. MAGNESIUM STAT 07/19/2020 3:39 Results for this AM CDT procedure are i n the results section. CBC (HEMOGRAM ONLY) Routine 07/19/2020 3:39 Resu lts for this AM CDT procedure are i n the results section. BASIC METABOLIC PANEL Routine 07/19/2020 3:39 Re sults for this (7) AM CDT procedure are i n the results section. POCT-GLUCOSE METER Routine 07/18/2020 11:34 Resul ts for this PM CDT procedure are i n the results section. HEMODIALYSIS INPATIENT Routine 07/18/2020 11:00 R esults for this PM CDT procedure are i n the results section. TRANSFUSE Routine 07/18/2020 9:32 LEUKO-REDUCED RED PM CDT BLOOD CELLS POCT-GLUCOSE METER Routine 07/18/2020 4:40 Resul ts for this PM CDT procedure are i n the results section. ECG 12-LEAD Routine 07/18/2020 12:41 Results for this PM CDT procedure are i n the results section. ECG 12-LEAD Routine 07/18/2020 12:41 PM CDT Procedure Note - Interface, External Ris In - 07/22/2020 5:52 PM CDT Ventricular Rate 70 BPM Atrial Rate 70 BPM P-R Interval 110 ms QRS Duration 100 ms Q-T Interval 460 ms QTC Calculation(Bazett) 496 ms P [place] 40 degrees R [place] 35 degrees T [place] 62 degrees Sinus rhythm with short MD T wave abnormality, consider anterior ischemia Prolonged QT Abnormal ECG When compared with ECG of 16:17, No significant change was fo und POCT-GLUCOSE METER Routine 07/18/2020 12:09 PM CDT Results for this procedure are i n the results section . ANTIBODY SCREEN Routine 07/18/2020 12:07 PM CDT R esults for this procedure are i n the results section . ABORH, MANUAL Routine 07/18/2020 12:07 PM CDT Res ults for this procedure are i n the results section . IR TUNNELED DIALYSIS Routine 07/18/2020 11:40 AM CDT Results for this CATHETER procedure are i n the results section . PT/APTT POLO 07/18/2020 8:44 AM CDT Resu lts for this procedure are i n the results section . POCT-GLUCOSE METER Routine 07/18/2020 7:16 AM CDT Results for this procedure are i n the results section . CBC W/PLT COUNT & AUTO STAT 07/18/2020 5:59 AM CDT Results for this DIFFERENTIAL procedure are i n the results section . PHOSPHORUS Routine 07/18/2020 5:59 AM CDT Resu lts for this procedure are i n the results section . CBC W/PLT COUNT & AUTO STAT 07/18/2020 5:59 AM CDT Results for this DIFFERENTIAL procedure are i n the results section . MAGNESIUM STAT 07/18/2020 5:59 AM CDT Resu lts for this procedure are i n the results section . BASIC METABOLIC PANEL (7) Routine 07/18/2020 5:59 AM CDT Results for this procedure are i n the results section . POCT-GLUCOSE METER Routine 07/17/2020 9:11 PM CDT Results for this procedure are i n the results section . POCT-GLUCOSE METER Routine 07/17/2020 5:04 PM CDT Results for this procedure are i n the results section . BASIC METABOLIC PANEL (7) Routine 07/17/2020 5:01 PM CDT Results for this procedure are i n the results section . POCT-GLUCOSE METER Routine 07/17/2020 11:54 AM CDT Results for this procedure are i n the results section . POCT-GLUCOSE METER Routine 07/17/2020 7:24 AM CDT Results for this procedure are i n the results section . CBC W/PLT COUNT & AUTO STAT 07/17/2020 5:17 AM CDT Results for this DIFFERENTIAL procedure are i n the results section . PHOSPHORUS Routine 07/17/2020 5:17 AM CDT Resu lts for this procedure are i n the results section . CBC W/PLT COUNT & AUTO STAT 07/17/2020 5:17 AM CDT Results for this DIFFERENTIAL procedure are i n the results section . COMPREHENSIVE METABOLIC Routine 07/17/2020 5:17 AM CDT Results for this PANEL procedure are i n the results section . MAGNESIUM STAT 07/17/2020 5:17 AM CDT Resu lts for this procedure are i n the results section . POCT-GLUCOSE METER Routine 07/16/2020 11:38 PM CDT Results for this procedure are i n the results section . POCT-GLUCOSE METER Routine 07/16/2020 4:34 PM CDT Results for this procedure are i n the results section . 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 POCT-GLUCOSE METER Routine 07/16/2020 11:56 AM Re sults for this CDT procedure are i n the results section . POCT-GLUCOSE METER Routine 07/16/2020 7:43 AM Re sults for this CDT procedure are i n the results section . CBC W/PLT COUNT & AUTO STAT 07/16/2020 5:33 AM Results for this DIFFERENTIAL CDT procedure are i n the results section . PHOSPHORUS Routine 07/16/2020 5:33 AM Results for this CDT procedure are i n the results section . CBC W/PLT COUNT & AUTO STAT 07/16/2020 5:33 AM Results for this DIFFERENTIAL CDT procedure are i n the results section . COMPREHENSIVE METABOLIC Routine 07/16/2020 5:33 AM Results for this PANEL CDT procedure are i n the results section . MAGNESIUM STAT 07/16/2020 5:33 AM Results for this CDT procedure are i n the results section . POCT-GLUCOSE METER Routine 07/15/2020 11:58 PM Re sults for this CDT procedure are i n the results section . POCT-GLUCOSE METER Routine 07/15/2020 5:36 PM Re sults for this CDT procedure are i n the results section . POCT-GLUCOSE METER Routine 07/15/2020 11:09 AM Re sults for this CDT procedure are i n the results section . POCT-GLUCOSE METER Routine 07/15/2020 7:25 AM Re sults for this CDT procedure are i n the results section . CBC W/PLT COUNT & AUTO STAT 07/15/2020 6:56 AM Results for this DIFFERENTIAL CDT procedure are i n the results section . PHOSPHORUS Routine 07/15/2020 6:56 AM Results for this CDT procedure are i n the results section . CBC W/PLT COUNT & AUTO STAT 07/15/2020 6:56 AM Results for this DIFFERENTIAL CDT procedure are i n the results section . COMPREHENSIVE METABOLIC Routine 07/15/2020 6:56 AM Results for this PANEL CDT procedure are i n the results section . MAGNESIUM STAT 07/15/2020 6:56 AM Results for this CDT procedure are i n the results section . POCT-GLUCOSE METER Routine 07/15/2020 12:52 AM Re sults for this CDT procedure are i n the results section . TRANSFUSION SERVICE REPORT - 07/14/2020 6:03 PM SCAN CDT POCT-GLUCOSE METER Routine 07/14/2020 5:46 PM Re sults for this CDT procedure are i n the results section . HEMODIALYSIS INPATIENT Routine 07/14/2020 12:40 PM Results for this CDT procedure are i n the results section . CBC W/PLT COUNT & AUTO STAT 07/14/2020 8:27 AM Results for this DIFFERENTIAL CDT procedure are i n the results section . PHOSPHORUS Routine 07/14/2020 8:27 AM Results for this CDT procedure are i n the results section . CBC W/PLT COUNT & AUTO STAT 07/14/2020 8:27 AM Results for this DIFFERENTIAL CDT procedure are i n the results section . COMPREHENSIVE METABOLIC Routine 07/14/2020 8:27 AM Results for this PANEL CDT procedure are i n the results section . MAGNESIUM STAT 07/14/2020 8:27 AM Results for this CDT procedure are i n the results section . PREPARE LEUKO-REDUCED RBC Routine 07/13/2020 11:54 PM Results for this CDT procedure are i n the results section . POCT-GLUCOSE METER Routine 07/13/2020 9:48 PM Re sults for this CDT procedure are i n the results section . TRANSFUSION SERVICE REPORT - 07/13/2020 6:02 PM SCAN CDT POCT-GLUCOSE METER Routine 07/13/2020 5:08 PM Re sults for this CDT procedure are i n the results section . POCT-GLUCOSE METER Routine 07/13/2020 10:58 AM Re sults for this CDT procedure are i n the results section . CBC W/PLT COUNT & AUTO STAT 07/13/2020 4:52 AM Results for this DIFFERENTIAL CDT procedure are i n the results section . PHOSPHORUS Routine 07/13/2020 4:52 AM Results for this CDT procedure are i n the results section . CBC W/PLT COUNT & AUTO STAT 07/13/2020 4:52 AM Results for this DIFFERENTIAL CDT procedure are i n the results section . COMPREHENSIVE METABOLIC Routine 07/13/2020 4:52 AM Results for this PANEL CDT procedure are i n the results section . MAGNESIUM STAT 07/13/2020 4:52 AM Results for this CDT procedure are i n the results section . POCT-GLUCOSE METER Routine 07/12/2020 10:55 PM Re sults for this CDT procedure are i n the results section . HEMODIALYSIS INPATIENT Routine 07/12/2020 6:40 PM Results for this CDT procedure are i n the results section . POCT-GLUCOSE METER Routine 07/12/2020 5:57 PM Re sults for this CDT procedure are i n the results section . POCT-GLUCOSE METER Routine 07/12/2020 5:39 PM Re sults for this CDT procedure are i n the results section . TRANSFUSE LEUKO-REDUCED RED Routine 07/12/2020 4:49 PM BLOOD CELLS CDT POCT-GLUCOSE METER Routine 07/12/2020 7:29 AM Re sults for this CDT procedure are i n the results section . TYPE AND SCREEN Routine 07/12/2020 6:28 AM Resul ts for this CDT procedure are i n the results section . CBC W/PLT COUNT & AUTO STAT 07/12/2020 4:13 AM Results for this DIFFERENTIAL CDT procedure are i n the results section . PHOSPHORUS Routine 07/12/2020 4:13 AM Results for this CDT procedure are i n the results section . CBC W/PLT COUNT & AUTO STAT 07/12/2020 4:13 AM Results for this DIFFERENTIAL CDT procedure are i n the results section . COMPREHENSIVE METABOLIC Routine 07/12/2020 4:13 AM Results for this PANEL CDT procedure are i n the results section . MAGNESIUM STAT 07/12/2020 4:13 AM Results for this CDT procedure are i n the results section . POCT-GLUCOSE METER Routine 07/11/2020 8:31 PM Re sults for this CDT procedure are i n the results section . POCT-GLUCOSE METER Routine 07/11/2020 4:29 PM Re sults for this CDT procedure are i n the results section . POCT-GLUCOSE METER Routine 07/11/2020 11:35 AM Re sults for this CDT procedure are i n the results section . PHOSPHORUS Routine 07/11/2020 5:47 AM Results for this CDT procedure are i n the results section . COMPREHENSIVE METABOLIC Routine 07/11/2020 5:47 AM Results for this PANEL CDT procedure are i n the results section . MAGNESIUM STAT 07/11/2020 5:47 AM Results for this CDT procedure are i n the results section . CBC W/PLT COUNT & AUTO STAT 07/11/2020 5:46 AM Results for this DIFFERENTIAL CDT procedure are i n the results section . IMMUNOFIXATION Routine 07/11/2020 5:46 AM Result s for this ELECTROPHORESIS (VERÓNICA) CDT proced ure are in the results section . CBC W/PLT COUNT & AUTO STAT 07/11/2020 5:46 AM Results for this DIFFERENTIAL CDT procedure are i n the results section . KAPPA / LAMBDA LIGHT CHAINS, Routine 07/11/2020 5:46 AM Results for this SERUM CDT procedure are i n the results section . IMMUNOGLOBULIN G (IGG) Routine 07/11/2020 5:46 AM Results for this CDT procedure are i n the results section . PROTEIN ELECTROPHORESIS, AP Routine 07/11/2020 5:46 AM Results for this SERUM CDT procedure are i n the results section . POCT-GLUCOSE METER Routine 07/11/2020 5:36 AM Re sults for this CDT procedure are i n the results section . POCT-GLUCOSE METER Routine 07/10/2020 11:17 PM Re sults for this CDT procedure are i n the results section . POCT-GLUCOSE METER Routine 07/10/2020 4:43 PM Re sults for this CDT procedure are i n the results section . POCT-GLUCOSE METER Routine 07/10/2020 11:51 AM Re sults for this CDT procedure are i n the results section . CBC W/PLT COUNT & AUTO STAT 07/10/2020 5:20 AM Results for this DIFFERENTIAL CDT procedure are i n the results section . PHOSPHORUS Routine 07/10/2020 5:20 AM Results for this CDT procedure are i n the results section . CBC W/PLT COUNT & AUTO STAT 07/10/2020 5:20 AM Results for this DIFFERENTIAL CDT procedure are i n the results section . COMPREHENSIVE METABOLIC Routine 07/10/2020 5:20 AM Results for this PANEL CDT procedure are i n the results section . MAGNESIUM STAT 07/10/2020 5:20 AM Results for this CDT procedure are i n the results section . POCT-GLUCOSE METER Routine 07/10/2020 5:13 AM Re sults for this CDT procedure are i n the results section . POCT-GLUCOSE METER Routine 07/09/2020 11:15 PM Re sults for this CDT procedure are i n the results section . POCT-GLUCOSE METER Routine 07/09/2020 5:06 PM Re sults for this CDT procedure are i n the results section . HEMODIALYSIS INPATIENT Routine 07/09/2020 10:24 AM CDT POCT-GLUCOSE METER Routine 07/09/2020 5:53 AM Re sults for this CDT procedure are i n the results section . CBC W/PLT COUNT & AUTO STAT 07/09/2020 4:34 AM Results for this DIFFERENTIAL CDT procedure are i n the results section . PHOSPHORUS Routine 07/09/2020 4:34 AM Results for this CDT procedure are i n the results section . CBC W/PLT COUNT & AUTO STAT 07/09/2020 4:34 AM Results for this DIFFERENTIAL CDT procedure are i n the results section . COMPREHENSIVE METABOLIC Routine 07/09/2020 4:34 AM Results for this PANEL CDT procedure are i n the results section . MAGNESIUM STAT 07/09/2020 4:34 AM Results for this CDT procedure are i n the results section . POCT-GLUCOSE METER Routine 07/08/2020 9:55 PM Re sults for this CDT procedure are i n the results section . XR ABDOMEN / KUB 1 VIEW STAT 07/08/2020 5:25 PM Results for this CDT procedure are i n the results section . POCT-GLUCOSE METER Routine 07/08/2020 5:14 PM Re sults for this CDT procedure are i n the results section . POCT-GLUCOSE METER Routine 07/08/2020 11:36 AM Re sults for this CDT procedure are i n the results section . MR BRAIN WITHOUT IV CONTRAST Routine 07/08/2020 9:54 AM Results for this CDT procedure are i n the results section . POCT-GLUCOSE METER Routine 07/08/2020 5:58 AM Re sults for this CDT procedure are i n the results section . CBC W/PLT COUNT & AUTO STAT 07/08/2020 4:34 AM Results for this DIFFERENTIAL CDT procedure are i n the results section . CBC W/PLT COUNT & AUTO STAT 07/08/2020 4:34 AM Results for this DIFFERENTIAL CDT procedure are i n the results section . PHOSPHORUS Routine 07/08/2020 4:33 AM Results for this CDT procedure are i n the results section . COMPREHENSIVE METABOLIC Routine 07/08/2020 4:33 AM Results for this PANEL CDT procedure are i n the results section . MAGNESIUM STAT 07/08/2020 4:33 AM Results for this CDT procedure are i n the results section . POCT-GLUCOSE METER Routine 07/08/2020 12:18 AM Re sults for this CDT procedure are i n the results section . POCT-GLUCOSE METER Routine 07/07/2020 6:21 PM Re sults for this CDT procedure are i n the results section . TRANSFUSION SERVICE REPORT - 07/07/2020 6:02 PM SCAN CDT POCT-GLUCOSE METER Routine 07/07/2020 11:45 AM Re sults for this CDT procedure are i n the results section . AMMONIA Routine 07/07/2020 11:18 AM Results for this CDT procedure are i n the results section . POCT-GLUCOSE METER Routine 07/07/2020 6:39 AM Re sults for this CDT procedure are i n the results section . CBC W/PLT COUNT & AUTO STAT 07/07/2020 4:49 AM Results for this DIFFERENTIAL CDT procedure are i n the results section . PHOSPHORUS Routine 07/07/2020 4:49 AM Results for this CDT procedure are i n the results section . CBC W/PLT COUNT & AUTO STAT 07/07/2020 4:49 AM Results for this DIFFERENTIAL CDT procedure are i n the results section . COMPREHENSIVE METABOLIC Routine 07/07/2020 4:49 AM Results for this PANEL CDT procedure are i n the results section . MAGNESIUM STAT 07/07/2020 4:49 AM Results for this CDT procedure are i n the results section . POCT-GLUCOSE METER Routine 07/07/2020 12:34 AM Re sults for this CDT procedure are i n the results section . PREPARE LEUKO-REDUCED RBC Routine 07/06/2020 11:54 PM Results for this CDT procedure are i n the results section . TRANSFUSION SERVICE REPORT - 07/06/2020 6:02 PM SCAN CDT EEG 2-12 HR CONTINUOUS Routine 07/06/2020 5:48 PM Results for this MONITORING WITH VIDEO CDT proced ure are in the results section . XR ABDOMEN / KUB 1 VIEW Routine 07/06/2020 4:33 PM Results for this CDT procedure are i n the results section . POCT-GLUCOSE METER Routine 07/06/2020 12:09 PM Re sults for this CDT procedure are i n the results section . EEG 12-26 HR CONTINUOUS Routine 07/06/2020 7:00 AM Results for this MONITORING WITH VIDEO CDT proced ure are in the results section . POCT-GLUCOSE METER Routine 07/06/2020 5:45 AM Re sults for this CDT procedure are i n the results section . CBC W/PLT COUNT & AUTO STAT 07/06/2020 5:40 AM Results for this DIFFERENTIAL CDT procedure are i n the results section . TRIGLYCERIDES Add-On 07/06/2020 5:40 AM Results for this CDT procedure are i n the results section . PREALBUMIN Add-On 07/06/2020 5:40 AM Results for this CDT procedure are i n the results section . PHOSPHORUS Routine 07/06/2020 5:40 AM Results for this CDT procedure are i n the results section . CBC W/PLT COUNT & AUTO STAT 07/06/2020 5:40 AM Results for this DIFFERENTIAL CDT procedure are i n the results section . COMPREHENSIVE METABOLIC Routine 07/06/2020 5:40 AM Results for this PANEL CDT procedure are i n the results section . MAGNESIUM STAT 07/06/2020 5:40 AM Results for this CDT procedure are i n the results section . VITAMIN D, 25-HYDROXY Routine 07/06/2020 5:40 AM Results for this CDT procedure are i n the results section . PTH, INTACT Routine 07/06/2020 5:40 AM Results for this CDT procedure are i n the results section . POCT-GLUCOSE METER Routine 07/05/2020 10:00 PM Re sults for this CDT procedure are i n the results section . TRANSFUSE LEUKO-REDUCED RED Routine 07/05/2020 1:45 PM BLOOD CELLS CDT HEMODIALYSIS INPATIENT Routine 07/05/2020 12:43 PM CDT REPORT OF PROCEDURE - 07/05/2020 10:45 AM ENDOSCOPY SCAN CDT POCT-GLUCOSE METER Routine 07/05/2020 10:35 AM Re sults for this CDT procedure are i n the results section . POCT-GLUCOSE METER Routine 07/05/2020 6:12 AM Re sults for this CDT procedure are i n the results section . EEG 12-26 HR CONTINUOUS Routine 07/05/2020 6:09 AM Results for this MONITORING WITH VIDEO CDT proced ure are in the results section . CBC W/PLT COUNT & AUTO STAT 07/05/2020 4:59 AM Results for this DIFFERENTIAL CDT procedure are i n the results section . IMMUNOFIXATION Routine 07/05/2020 4:59 AM Result s for this ELECTROPHORESIS (VERÓNICA) CDT proced ure are in the results section . HEPATITIS B SURFACE ANTIGEN STAT Add-on 07/05/2020 4:59 AM Results for this CDT procedure are i n the results section . PHOSPHORUS Routine 07/05/2020 4:59 AM Results for this CDT procedure are i n the results section . CBC W/PLT COUNT & AUTO STAT 07/05/2020 4:59 AM Results for this DIFFERENTIAL CDT procedure are i n the results section . COMPREHENSIVE METABOLIC Routine 07/05/2020 4:59 AM Results for this PANEL CDT procedure are i n the results section . MAGNESIUM STAT 07/05/2020 4:59 AM Results for this CDT procedure are i n the results section . IMMUNOGLOBULIN M (IGM) Routine 07/05/2020 4:59 AM Results for this CDT procedure are i n the results section . IMMUNOGLOBULIN A (IGA) Routine 07/05/2020 4:59 AM Results for this CDT procedure are i n the results section . IMMUNOGLOBULIN G (IGG) Routine 07/05/2020 4:59 AM Results for this CDT procedure are i n the results section . PROTEIN ELECTROPHORESIS, Routine 07/05/2020 4:59 AM Results for this SERUM CDT procedure are i n the results section . VISCOSITY, SERUM Routine 07/05/2020 4:59 AM Resu lts for this CDT procedure are i n the results section . POCT-GLUCOSE METER Routine 07/05/2020 12:37 AM Re sults for this CDT procedure are i n the results section . TRANSFUSION SERVICE REPORT - 07/04/2020 6:01 PM SCAN CDT VANCOMYCIN LEVEL, RANDOM Routine 07/04/2020 5:38 PM Results for this CDT procedure are i n the results section . CBC W/PLT COUNT & AUTO STAT 07/04/2020 5:07 AM Results for this DIFFERENTIAL CDT procedure are i n the results section . PHOSPHORUS Routine 07/04/2020 5:07 AM Results for this CDT procedure are i n the results section . CBC W/PLT COUNT & AUTO STAT 07/04/2020 5:07 AM Results for this DIFFERENTIAL CDT procedure are i n the results section . COMPREHENSIVE METABOLIC Routine 07/04/2020 5:07 AM Results for this PANEL CDT procedure are i n the results section . MAGNESIUM STAT 07/04/2020 5:07 AM Results for this CDT procedure are i n the results section . TROPONIN I STAT 07/04/2020 5:07 AM Results for this CDT procedure are i n the results section . VENOUS DOPPLER LEGS Routine 07/04/2020 1:13 AM R esults for this BILATERAL CDT procedure are i n the results section . URINALYSIS W/ REFLEX URINE Routine 07/04/2020 1:01 AM Results for this CULTURE CDT procedure are i n the results section . URINE CULTURE Routine 07/04/2020 1:01 AM Results for this CDT procedure are i n the results section . ECG 12-LEAD Routine 07/03/2020 11:11 PM Results for this CDT procedure are i n the results section . ECG 12-LEAD Routine 07/03/2020 11:11 PM CDT Procedure Note - Interface, External Ris In - 07/04/2020 12:55 PM CDT Ventricular Rate 103 BPM Atrial Rate 103 BPM P-R Interval 130 ms QRS Duration 78 ms Q-T Interval 380 ms QTC Calculation(Bazett) 497 ms P [place] 41 degrees R [place] 47 degrees T [place] 209 degrees Sinus tachycardia T wave abnormality, consider inferior ischemia T wave abnormality, consider anterolateral ischemia Abnormal ECG When compared with ECG of 23:11, Premature supraventricular c omplexes are no longer Present ECG 12-LEAD Routine 07/03/2020 11:11 PM CDT Procedure Note - Interface, External Ris In - 07/04/2020 12:55 PM CDT Ventricular Rate 102 BPM Atrial Rate 102 BPM P-R Interval 128 ms QRS Duration 80 ms Q-T Interval 380 ms QTC Calculation(Bazett) 495 ms P [place] 37 degrees R [place] 44 degrees T [place] 208 degrees Sinus tachycardia with Suzanne ture supraventricular complexes T wave abnormality, consider inferior ischemia T wave abnormality, consider anterolateral ischemia Abnormal ECG When compared with ECG of 19:47, Premature supraventricular c omplexes are now Present T wave inversion more eviden t in Inferior leads T wave inversion less eviden t in Anterolateral leads QT has shortened ECG 12-LEAD Routine 07/03/2020 11:11 PM CDT Resu lts for this procedure are i n the results section . RAPID INFLUENZA A&B SCREEN STAT 07/03/2020 10:43 PM CDT Results for this procedure are i n the results section . RESPIRATORY PANEL SLHS STAT 07/03/2020 10:43 PM CDT Results for this procedure are i n the results section . CBC W/PLT COUNT & AUTO STAT 07/03/2020 10:39 PM CDT Results for this DIFFERENTIAL procedure are i n the results section . D-DIMER Routine 07/03/2020 10:39 PM CDT Resu lts for this procedure are i n the results section . FIBRINOGEN Routine 07/03/2020 10:39 PM CDT Resu lts for this procedure are i n the results section . FERRITIN Routine 07/03/2020 10:39 PM CDT Resu lts for this procedure are i n the results section . IRON, TIBC, % SAT. Routine 07/03/2020 10:39 PM CDT Results for this (WITHOUT FERRITIN) procedure are in the results section . C-REACTIVE PROTEIN Routine 07/03/2020 10:39 PM CDT Results for this procedure are i n the results section . CBC W/PLT COUNT & AUTO STAT 07/03/2020 10:39 PM CDT Results for this DIFFERENTIAL procedure are i n the results section . COMPREHENSIVE METABOLIC Routine 07/03/2020 10:39 PM CDT Results for this PANEL procedure are i n the results section . MAGNESIUM STAT 07/03/2020 10:39 PM CDT Resu lts for this procedure are i n the results section . T4 STAT 07/03/2020 10:39 PM CDT Resu lts for this procedure are i n the results section . TSH STAT 07/03/2020 10:39 PM CDT Resu lts for this procedure are i n the results section . TROPONIN I STAT 07/03/2020 10:39 PM CDT Resu lts for this procedure are i n the results section . ABORH, MANUAL STAT 07/03/2020 8:44 PM CDT Res ults for this procedure are i n the results section . URINALYSIS W/ REFLEX URINE STAT 07/03/2020 8:29 PM CDT Results for this CULTURE procedure are i n the results section . ANTIBODY SCREEN Routine 07/03/2020 8:02 PM CDT R esults for this procedure are i n the results section . TYPE AND SCREEN, AUTOMATED Routine 07/03/2020 8:02 PM CDT Results for this procedure are i n the results section . URIC ACID STAT Add-on 07/03/2020 8:02 PM CDT Resu lts for this procedure are i n the results section . COMPREHENSIVE METABOLIC STAT 07/03/2020 8:02 PM CDT Results for this PANEL procedure are i n the results section . B-TYPE NATRIURETIC FACTOR STAT 07/03/2020 8:02 PM CDT Results for this (BNP) procedure are i n the results section . TROPONIN I STAT 07/03/2020 8:02 PM CDT Resu lts for this procedure are i n the results section . ECG 12-LEAD STAT 07/03/2020 7:47 PM CDT Resu lts for this procedure are i n the results section . CBC W/PLT COUNT & AUTO STAT 07/03/2020 6:31 PM CDT Results for this DIFFERENTIAL procedure are i n the results section . BLOOD GAS, VENOUS STAT 07/03/2020 6:31 PM CDT Results for this procedure are i n the results section . PT/APTT STAT 07/03/2020 6:31 PM CDT Resu lts for this procedure are i n the results section . LACTIC ACID, VENOUS STAT 07/03/2020 6:31 PM CDT Results for this procedure are i n the results section . CBC W/PLT COUNT & AUTO STAT 07/03/2020 6:31 PM CDT Results for this DIFFERENTIAL procedure are i n the results section . SARS-COV2/RT-PCR ([facility] & STAT 07/03/2020 6:31 PM CDT Results for this REF LABS) procedure are i n the results section . BLOOD CULTURE STAT 07/03/2020 6:31 PM CDT Res ults for this procedure are i n the results section . BLOOD CULTURE STAT 07/03/2020 6:31 PM CDT Res ults for this procedure are i n the results section . CT BRAIN WITHOUT IV STAT 07/03/2020 6:09 PM CDT Results for this CONTRAST procedure are i n the results section . XR CHEST 1 VIEW STAT 07/03/2020 5:35 PM CDT R esults for this PORTABLE/BEDSIDE procedure a re in the results section . REPORT OF PROCEDURE - 07/03/2020 Result s for this ENDOSCOPY SCAN procedure are in the results section . SARS-COV2/RT-PCR ([facility] & Routine 05/11/2020 4:14 PM CDT Results for this REF LABS) procedure are i n the results section . after 08/17/2019 Results POC-Glucose meter (08/05/2020 5:11 PM CDT)Only the most recent of122 results within the time period is included. POC-Glucose Meter 94 70 - 110 mg/dL [facility] Comment: [facility] : TESTED AT [facility] [address] [facility], [address] MEDICAL CENTER : Bulldozer Press Operator/Combination Presser ID = [id number] for BRINA GONZALEZ Specimen Blood Performing Organization Address City/State/Zipcode Phone Number [facility] [address] [place], [place] [id number] CENTER HEMODIALYSIS INPATIENT (08/05/2020 12:38 PM CDT) Narrative Performed At Venancio Dominique RN 2019 12:39 PM HD procedure started via right tunneled cvc with bfr of 400. Net UF: 3000 CC Tolerated HD 3.5 hrs Lab Results Component Value Date GLUCOSE 156 (H) 08/05/2020 CALCIUM 7.9 (L) 08/05/2020 NA 125 (L) 08/05/2020 K 4.5 08/05/2020 CO2 20 (L) 08/05/2020 CL 99 08/05/2020 BUN 53 (H) 08/05/2020 CREATININE 4.55 (H) 08/05/2020 Lab Results Component Value Date WBC 5.6 08/05/2020 HGB 7.9 (L) 08/05/2020 HCT 25.2 (L) 08/05/2020 MCV 92.3 08/05/2020 PLT 353 08/05/2020 Lab Results Component Value Date HEPBSAG Nonreactive 08/04/2020 COVID19 ([facility] [place]) (08/05/2020 6:15 AM CDT) COVID19 ([facility] Negative Negative [facility]) Comment: [facility] The Aptima SARS-CoV-2 Assay combines the technologies of TMA (High School Assistant Football Coach Mediated Amplification) and DKA (Dual Kinetic Assay). It is a qualitative test used for the detection of nucleic acids from SARS-CoV-2 extracted from nasopharyngeal swabs, throat swabs, nasal and nasa l washes. Negative test results may occur in spite of active virus infection. This test was developed by [employer]. and its analytical performance characteristics have been validated by the [facility] pursuant to CLIA regulations. This test has EUA authorization from the Food and Drug Administration ([employer] Aptima SARS-CoV-2 Assay on the [place]). This test was performed at: [facility] Dr. Mary Brito [address] [place] [address] CLIA # [id number] Specimen Other - Nasopharyngeal wall structure (b narinder structure) Performing Organization Address City/State/Zipcode Phone Number [facility] [address] [place], [place] REFERENCE LABORATORY [place], [place] SARS-CoV2/RT-PCR ([facility] & Ref Labs) (08/05/2020 6:15 AM CDT)Only the most recent of6 resultswithin the time period is included. SARS-COV2/RT-PCR See external Not Detected, [facility] report for Negative, See [facility] linked test external report MEDICAL CENTER for linked test SARS-COV-2 [facility] PERFORMING LAB [facility] Specimen Other - Nasopharyngeal wall structure (b narinder structure) Performing Organization Address City/[facility]/Zipcode Phone Number [facility] [address] [place] [address] CENTER CBC with platelet count + automated diff (08/05/2020 3:52 AM CDT)Only the most recent of35 resultswithin the time period is included. Pathologist Sig nature WBC 5.6 3.5 - 10.5 [facility] K/L [facility] RBC 2.73 (L) 3.93 - 5.22 [facility] M/L [facility] Hemoglobin 7.9 (L) 11.2 - 15.7 [facility] GM/DL [facility] Hematocrit 25.2 (L) 34.1 - 44.9 % [facility] MCV 92.3 79.4 - 94.8 fL [facility] MCH 28.9 25.6 - 32.2 pg [facility] MCHC 31.3 (L) 32.2 - 35.5 [facility] GM/DL [facility] RDW 17.0 (H) 11.7 - 14.4 % [facility] Platelets 353 150 - 450 K/CU [facility] MPV 9.6 9.4 - 12.3 fL [facility] nRBC 0 0 - 0 /100 WBC [facility] % Neutros 71 % [facility] % Lymphs 27 % [facility] % Monos 2 % [facility] % Eos 0 % [facility] % Baso 0 % [facility] # Neutros 3.93 1.56 - 6.13 [facility] # Lymphs 1.48 1.18 - 3.74 [facility] # Monos 0.11 (L) 0.24 - 0.36 [facility] # Eos 0.00 (L) 0.04 - 0.36 [facility] # Baso 0.01 0.01 - 0.08 [facility] Immature 0 0 - 1 % [facility] Specimen Blood Performing Organization Address City/[facility]/Zipcode Phone Number [address] [address] CENTER Phosphorus (08/05/2020 3:52 AM CDT)Only the most recent of34 resultswithin the time period is included. Pathologist Sig nature Phosphorus 2.5 2.3 - 4.7 mg/dL [facility] Specimen Blood Narrative Performed At Bulldozer [employer] ALDO - [facility] Performing Organization Address City/[facility]/Zipcode Phone Number [address] [address] CENTER Magnesium (08/05/2020 3:52 AM CDT)Only the most recent of34 resultswithin the time period is included. Pathologist Sig nature Magnesium 2.1 1.6 - 2.6 mg/dL [facility] Specimen Blood Narrative Performed At Bulldozer Press Operator ID - DARON [facility] [place] Performing Organization Address City/[facility]/Zipcode Phone Number [facility] [address] [place] [address] CENTER Basic Metabolic Panel (08/05/2020 3:52 AM CDT)Only the most recent of21 results within the time period is included. Sodium 125 (L) 136 - 145 meq/L [facility] Potassium 4.5 3.5 - 5.1 meq/L [facility] Chloride 99 98 - 107 meq/L [facility] CO2 20 (L) 22 - 29 meq/L [facility] BUN 53 (H) 7 - 21 mg/dL [facility] Creatinine 4.55 (H) 0.57 - 1.25 [facility] mg/dL [facility] Glucose 156 (H) 70 - 105 mg/dL [facility] Calcium 7.9 (L) 8.4 - 10.2 [facility] mg/dL [facility] EGFR 11Comment: ESTIMATED mL/min/1.73 sq [facility] GFR IS NOT m [facility] [place] CREATININE CLEARANCE IN PREDICTING GLOMERULAR FILTRATION RATE. ESTIMATED GFR IS NOT APPLICABLE FOR DIALYSIS PATIENTS. Specimen Blood Narrative Performed At Bulldozer Press Operator ID - EDCHANA [facility] [place] Performing Organization Address City/[facility]/Zipcode Phone Number [facility] [address] [place] [address] [place] Hepatitis B Panel (08/04/2020 6:36 PM CDT) Pathologist Sig nature Hep B Core Total Ab Nonreactive Nonreactive [facility] Hep B S Ab <8.0 <8.0 mIU/mL [facility] HBsAg Screen Nonreactive Nonreactive [facility] Specimen Blood Narrative Performed At Bulldozer Press Operator ID - DB [facility] [place] Performing Organization Address [facility] Phone Number [facility] [address] [place], [place] [phone] CENTER Hepatitis B core antibody, IgM (08/04/2020 6:36 PM CDT) Pathologist Sig nature Hep B C IgM Nonreactive Nonreactive [facility] Specimen Blood Narrative Performed At Bulldozer Press Operator ID - PIAYA L [facility] [place] Performing Organization Address [facility] Phone Number [address] [address] CENTER Manual Differential (08/04/2020 3:54 AM CDT) Pathologist Sig nature % Neutros 87 % [facility] % Lymphs 9 % [facility] % Monos 3 % [facility] % Bands 1 0 - 10 % [facility] # Neutros 3.83 1.56 - 6.13 K/ul [facility] # Lymphs 0.40 (L) 1.18 - 3.74 K/ul [facility] # Monos 0.13 (L) 0.24 - 0.36 K/uL [facility] # Bands 0.04 0.00 - 0.80 K/uL [facility] Total Counted 100 [facility] Platelet Morphology Normal [facility] Smudge Cells Present [facility] Anisocytosis 1+ few [facility] Platelet Conc Adequate [facility] Specimen Blood Narrative Performed At Bulldozer Press Operator ID - Jacque Shan [facility] User comments: Slide comments: Performing Organization Address City/[facility]/Zipcode Phone Number [facility] [address] [place] [address] CENTER Immunoglobulin G (IgG) (08/02/2020 3:37 AM CDT)Only the most recent of5 results within the time period is included. Pathologist Sig nature IgG 6,982 (H) 540-1,822 mg/dL [facility] Specimen Blood Narrative Performed At Bulldozer Press Operator ID - PIMARGARITA Trotter [facility] Bulldozer Press Operator ID - PIMARGARITA Trotter Performing Organization Address [facility] Phone Number [facility] [address] [place] [address] CENTER [place] / lambda light chains, serum (08/02/2020 3:36 AM CDT)Only the most recent of4 resultswithin the time period is included. [place] Lt 3868.1 (H)Comment: SAMPLE 3.3 - 19.4 [facility] Chain,Free SLIGHTLY HEMOLYZED. mg/L [facility]ATED Lambda Lt 3.0 (L)Comment: SAMPLE 5.7 - 26.3 [facility] Chain,Free SLIGHTLY HEMOLYZED. mg/L [facility] [place]/Lambda,Fr >1000.00 (H) 0.26 - 1.65 [facility] ee Comment: INC[facility]PORATED SAMPLE SLIGHTLY HEMOLYZED. Free kappa/lambda ratio in serum of normal individuals is 0.26-1.65. Excess production of free kappa or lambda chains can alter th is ratio. Monoclonal free light chains are found in serum of patients with multiple myeloma, Waldenstrom's macroglobulinemia, mu-heavy chain disease, primary amyloidosis, light chain deposition disease, monoclonal gammopathy of undetermined significance, and lymphoproliferative disorders. Measu rement of free light chain concentration in serum is useful for diagnosis, prognosis, monitoring disease activity and following response to therapy of these disorders. Specimen Blood Narrative Performed At Performing Lab [facility] [employer] [facility] [place] [address] [place] [address] Jenna Zuñiga MD, PhD, BHARAT Performing Organization Address City/[facility] Phone Number [place] [address] [facility] HEMODIALYSIS INPATIENT (08/01/2020 11:56 PM CDT) Narrative Performed At James Silverio RN 08/01/2020 11:5 8 PM Tolerated and completed 2 hours and 0min utes. No distress noted, asymptomatic. Denies any discomfort and pain. UF fluid removed 2 liters. Packed cvc port with heparin 5000 units/ ml and secured line with blue caps, gauze and tape. Report given to Primary Nurse patient st diaz. Latest lab result: Lab Results Component Value Date WBC 2.8 (L) 08/01/2020 HGB 8.4 (L) 08/01/2020 HCT 26.5 (L) 08/01/2020 MCV 92.0 08/01/2020 PLT 258 08/01/2020 Lab Results Component Value Date GLUCOSE 108 (H) 08/01/2020 CALCIUM 7.2 (L) 08/01/2020 NA 122 (L) 08/01/2020 K 5.0 08/01/2020 CO2 25 08/01/2020 CL 92 (L) 08/01/2020 BUN 57 (H) 08/01/2020 CREATININE 4.55 (H) 08/01/2020 James FINKN, RN II 7S6- Adult Dialysis [phone] Hepatic function panel (08/01/2020 3:40 AM CDT)Only the most recent of2 results within the time period is included. Pathologist Sig nature Protein, Total 10.9 (H) 6.0 - 8.3 gm/dL [facility] Albumin 2.2 (L) 3.5 - 5.0 g/dL [facility] Total Bilirubin 0.3 0.2 - 1.2 mg/dL [facility] Bilirubin, Direct 0.2 0.1 - 0.5 mg/dL [facility] Alkaline Phosphatase 58 40 - 150 U/L [facility] AST 15 5 - 34 U/L [facility] ALT 6 6 - 55 U/L [facility] Specimen Blood Narrative Performed At Bulldozer Press Operator ALDO Trotter [facility] Performing Organization Address City/[facility]/Zipcode Phone Number [address] [address] CENTER Prepare Leuko-Red RBC (07/31/2020 11:54 PM CDT)Only the most recent of5 results within the time period is included. Pathologist Sig loren CROSSMATCH COMPATIBLE [employer] [place] Unit ABO B Pos [employer] [place] UNIT NUMBER [id number] [place] Status TX_TIMEINCHART [place] Blood Bank Product RED BLOOD CELLS [place] PRODUCT CODE [id number] [place] Specimen Other Performing Organization Address [facility] Phone Number [employer] [place] Trans[employer]use Leuko-Red RBC (07/30/2020 10:22 AM CDT)Only the most recent of5 resultswithin the time period is included.Type and screen, automated (07/30/2020 7:54 AM CDT)Only the most recent of2 resultswithin the time period is included. Pathologist Sig loren ABO/RH AUTOMATED B POSITIVE [facility] Ab Scrn NEGATIVE [facility] Specimen Blood Performing Organization Address [facility] Phone Number [address] [address] Hepatitis B surface antigen (07/30/2020 7:44 AM CDT)Only the most recent of2 resultswithin the time period is included. Pathologist Sig nature HBsAg Screen Nonreactive Nonreactive [facility] Specimen Blood Narrative Performed At Specimen is considered negative for HBsA g. [facility] Performing Organization Address [facility]/Zipcode Phone Number [address] [address] CENTER HEMODIALYSIS INPATIENT (07/26/2020 12:00 PM CDT) Narrative Performed At Tonya Pedraza RN 07/27/2020 10:17 AM Lab Results Component Value Date WBC 4.7 07/26/2020 HGB 8.1 (L) 07/26/2020 HCT 24.9 (L) 07/26/2020 MCV 88.6 07/26/2020 PLT 141 (L) 07/26/2020 Lab Results Component Value Date GLUCOSE 114 (H) 07/26/2020 CALCIUM 7.0 (L) 07/26/2020 NA 123 (L) 07/26/2020 K 4.5 07/26/2020 CO2 26 07/26/2020 CL 94 (L) 07/26/2020 BUN 48 (H) 07/26/2020 CREATININE 4.88 (H) 07/26/2020 Lab Results Component Value Date HEPBSAG Nonreactive 07/05/2020 HD ended 30 minutes early after 3 hours due to increasing venous pressures. Net UF -2.5L. VSS. Patien t very agitated, confused during treatment, turning to right side, frequently occluding catheter. Sitter with patient all of t he time but patient still very restless. Charge nurse notified w ho min turn notified Dr Mcmahon. Patient tolerated treatment fa irly well other than chronic confusion. Tonya Pedraza RN ABORH, manual (07/25/2020 9:35 AM CDT)Only the most recent of3 resultswithin the time period is included. Pathologist Sig nature ABO Grouping B [facility] DICAL [place] Rh Factor POS [facility] Specimen Blood Performing Organization Address City/[facility] Phone Number [address] [address] Antibody screen (07/25/2020 9:35 AM CDT)Only the most recent of3 resultswithin the time period is included. Pathologist Sig nature Ab Scrn NEGATIVE [facility] Specimen Blood Performing Organization Address City/[facility]/Zipcode Phone Number [employer] [address] [address] Viscosity, serum (07/25/2020 4:45 AM CDT)Only the most recent of2 resultswithin the time period is included. VISCOSITY, SERUM 2.9 (H) 1.5 - 1.9 Relative [facility] to H2O [facility] Specimen Blood Narrative Performed At Performing Lab [facility] E[employer] [facility] te [address] [place] [address] Jenna Zuñiga MD, PhD, BHARAT Performing Organization Address City/State/Zipcode Phone Number [facility] [place] [address] [facility] HEMODIALYSIS INPATIENT (07/23/2020 8:06 PM CDT) Narrative Performed At Venancio Dominique RN 2019 8:07 PM Patient tolerated 3.5HRS. HD. Net UF 200 0ml. Pt denies any discomfort. Report given to primary nurs e. Lab Results Component Value Date GLUCOSE 97 07/23/2020 CALCIUM 6.5 (L) 07/23/2020 NA 129 (L) 07/23/2020 K 3.7 07/23/2020 CO2 25 07/23/2020 CL 104 07/23/2020 BUN 19 07/23/2020 CREATININE 3.44 (H) 07/23/2020 Lab Results Component Value Date WBC 6.1 07/23/2020 HGB 7.1 (L) 07/23/2020 HCT 23.5 (L) 07/23/2020 MCV 91.4 07/23/2020 PLT 109 (L) 07/23/2020 Lab Results Component Value Date HEPBSAG Nonreactive 07/05/2020 HEMODIALYSIS INPATIENT (07/21/2020 11:12 PM CDT) Narrative Performed At James Silverio RN 07/21/2020 11:1 6 PM Tolerated and completed 4 hours and 0 mi nutes. No distress noted, asymptomatic. Denies any discomfort and pain. UF fluid removed 2liters. Packed cvc port with heparin 5000 units/ ml and secured line with blue caps, gauze and tape. Report given to Primary Nurse Patient st diaz. Latest lab result: Lab Results Component Value Date WBC 7.6 07/21/2020 HGB 7.6 (L) 07/21/2020 HCT 24.0 (L) 07/21/2020 MCV 89.9 07/21/2020 PLT 132 (L) 07/21/2020 Lab Results Component Value Date GLUCOSE 112 (H) 07/21/2020 CALCIUM 6.4 (L) 07/21/2020 NA 130 (L) 07/21/2020 K 3.7 07/21/2020 CO2 22 07/21/2020 CL 102 07/21/2020 BUN 23 (H) 07/21/2020 CREATININE 4.42 (H) 07/21/2020 James VILLAFUERTE, RN II 7S6- Adult Dialysis [phone] REPORT OF PROCEDURE - ENDOSCOPY URL (07/21/2020 3:42 PM CDT) Narrative Performed At This result has an attachment that is no t available. PT/aPTT (07/21/2020 4:37 AM CDT)Only the most recent of3 resultswithin the time period is included. Pathologist Sig nature Protime 17.4 (H) 11.9 - 14.2 seconds [facility] INR 1.47 <=5.90 [facility] PTT 25.2 22.5 - 36.0 seconds [facility] Specimen Blood Narrative Performed At Effective 03/04/2019: PT Reference Range [facility] Change New: 11.9-14.2 Previous: 11.7-14.7 RECOMMENDED COUMADIN/WARFARIN INR THERAPY RANGES STANDARD DOSE: 2.0-3.0 Includes: PROPHYLAXIS for venous thrombosis, systemic embolization; TREATMENT for venous thrombosis and/or pulmonary embolus. HIGH RISK: Target INR is 2.5-3.5 for patients wiht mechanical heart valves. Performing Organization Address City/State/Zipcode Phone Number [facility] [address] [place] [address] CENTER CBC (Hemogram only) (07/19/2020 3:39 AM CDT) Pathologist Sig nature WBC 5.7 3.5 - 10.5 K/L [facility] RBC 2.96 (L) 3.93 - 5.22 M/L [facility] Hemoglobin 8.3 (L) 11.2 - 15.7 GM/DL [facility] Hematocrit 25.9 (L) 34.1 - 44.9 % [facility] MCV 87.5 79.4 - 94.8 fL [facility] MCH 28.0 25.6 - 32.2 pg [facility] MCHC 32.0 (L) 32.2 - 35.5 GM/DL [facility] RDW 17.3 (H) 11.7 - 14.4 % [facility] Platelets 183 150 - 450 K/CU MM [facility] MPV 10.7 9.4 - 12.3 fL [facility] nRBC 0 0 - 0 /100 WBC [facility] Specimen Blood Performing Organization Address City/State/Zipcode Phone Number [facility] [address] [place] [address] CENTER HEMODIALYSIS INPATIENT (07/18/2020 11:00 PM CDT) Narrative Performed At James Silverio RN 07/18/2020 11:4 7 PM Tolerated and completed 3 hours and 0min utes. No distress noted, asymptomatic. Denies any discomfort and pain. UF fluid removed 2 liters. Packed cvc port with heparin 5000 units/ ml and secured line with blue caps, gauze and tape. Report given to Primary Nurse patient emily. Lab Results Component Value Date WBC 7.6 07/18/2020 HGB 6.2 (L) 07/18/2020 HCT 20.3 (L) 07/18/2020 MCV 90.6 07/18/2020 PLT 189 07/18/2020 Lab Results Component Value Date GLUCOSE 79 07/18/2020 CALCIUM 6.6 (L) 07/18/2020 NA 124 (L) 07/18/2020 K 4.3 07/18/2020 CO2 19 (L) 07/18/2020 CL 100 07/18/2020 BUN 46 (H) 07/18/2020 CREATININE 7.60 (H) 07/18/2020 James VILLAFUERTE, RN II 7S6- Adult Dialysis [phone] ECG 12 lead (07/18/2020 12:41 PM CDT)Only the most recent of5 resultswithin the time period is included. Specimen Narrative Performed At Ventricular Rate 70 BPM GE MUSE Atrial Rate 70 BPM P-R Interval 110 ms QRS Duration 100 ms Q-T Interval 460 ms QTC Calculation(Bazett) 496 ms P [place] 40 degrees R [place] 35 degrees T [place] 62 degrees Sinus rhythm with short MD T wave inversion V3-V4 consider postisch emic changes Prolonged QT Abnormal ECG When compared with ECG of 16-JUL-2020 16 :17, T waves are no longer negative in V1-V2 Confirmed by MD HUERTA YOCHAI ([id number]) on 07/23/2020 7:05:52 AM Procedure Note Interface, External Ris In - 07/23/2020 7:06 AM CDT Ventricular Rate 70 BPM Atrial Rate 70 BPM P-R Interval 110 ms QRS Duration 100 ms Q-T Interval 460 ms QTC Calculation(Bazett) 496 ms P [place] 40 degrees R [place] 35 degrees T [place] 62 degrees Sinus rhythm with short MD T wave inversion V3-V4 consider postisch emic changes Prolonged QT Abnormal ECG When compared with ECG of 16-JUL-2020 16 :17, T waves are no longer negative in V1-V2 Confirmed by MD HUERTA YOCHAI ([id number]) on 07/23/2020 7:05:52 AM Performing Organization Address City/State/Zipcode Phone Number [facility] IR Tunneled Catheter Insertion (07/18/2020 11:40 AM CDT) Specimen Narrative Performed At FINAL REPORT [facility] PROCEDURE: Tunneled hemodialysis cathete r Placement CLINICAL HISTORY: esrd JAVA DEVELOPMENT MANAGER: Jayden Villareal DO, JD ANESTHESIA: Conscious sedation was pro vided by radiology nursing using constant hemodynamic monitoring fo r 45 Minutes. Versed IV 1 mg, Fentanyl IV 50 mcg. DEVICE: 19 cm cuff to tip tunneled hemod ialysis catheter. DOSE INFORMATION - Ka,r: 18 mGy Estimated Blood Loss: < 5cc Samples: None. PROCEDURE: The risks, benefits, and alte rnatives to the procedure were discussed with the the patient/heal thcare proxy. All questions were answered and written informed conse nt was obtained. A universal timeout was performed prior to starting the procedure. For Prevention of Central Venous Catheter (C VC)-Related Bloodstream Infections all elements of maximal steri le barrier technique, hand hygiene, skin preparation and sterile te chniques were followed. Ultrasound of the right internal jugular vein demonstrated a patent and compressible vessel. An ultrasound i mage of the vessel was obtained. Lidocaine was used for cutaneo us anesthesia. Under ultrasound guidance the vessel was acces sed with a 19-gauge needle and through this a 0.035 inch 3J wire wa s positioned in the inferior vena cava. Under fluoroscopic guidance, a 15 Bangladeshi peel-away sheath was advanced over the wire. I next direc charlene my attention to the anterior chest wall which was anesthetiz ed with lidocaine. Below the clavicle a small stab incision was made with a #11 blade. Using a metallic tunneling device connected to t he hemodialysis catheter a subcutaneous tract was created from the stab incision to the venotomy site and the catheter was brought out th e venotomy site. The core and wire were removed and the h emodialysis catheter was advanced with its tip positioned in the right atrium. Both lumens demonstrated excellent blood return and flushed easily. Each lumen was instilled with heparin. The venotomy site was covered with glue and Steri-Strips. The catheter was secur ed to the skin with suture. A dry sterile dressing was applied. The dominick ace tolerated procedure well and was returned to the recovery ar ea/floor in stable condition. IMPRESSION: Placement of a right internal jugular tu nneled hemodialysis catheter. The catheter is ready for use. Signed: Jayden Villareal MD Report Verified Date/Time: 07/18/2020 11:50:32 Reading Location: [place] [address] Angio Body Reading Room Procedure Note Interface, External Ris In - 07/18/2020 12:02 PM CDT FINAL REPORT PROCEDURE: Tunneled hemodialysis cathete r Placement CLINICAL HISTORY: esrd JAVA DEVELOPMENT MANAGER: Jayden Villareal DO, RONNIE ANESTHESIA: Conscious sedation was prov ided by radiology nursing using constant hemodynamic monitoring fo r 45 Minutes. Versed IV 1 mg, Fentanyl IV 50 mcg. DEVICE: 19 cm cuff to tip tunneled hemod ialysis catheter. DOSE INFORMATION - Ka,r: 18 mGy Estimated Blood Loss: < 5cc Samples: None. PROCEDURE: The risks, benefits, and alte rnatives to the procedure were discussed with the the patient/heal thcare proxy. All questions were answered and written informed conse nt was obtained. A universal timeout was performed prior to starting the procedure. For Prevention of Central Venous Catheter (C VC)-Related Bloodstream Infections all elements of maximal steri le barrier technique, hand hygiene, skin preparation and sterile te chniques were followed. Ultrasound of the right internal jugular vein demonstrated a patent and compressible vessel. An ultrasound i mage of the vessel was obtained. Lidocaine was used for cutaneo us anesthesia. Under ultrasound guidance the vessel was acces sed with a 19-gauge needle and through this a 0.035 inch 3J wire wa s positioned in the inferior vena cava. Under fluoroscopic guidance, a 15 Bangl[place]hi peel-away sheath was advanced over the wire. I next direc charlene my attention to the anterior chest wall which was anesthetiz ed with lidocaine. Below the clavicle a small stab incision was made with a #11 blade. Using a metallic tunneling device connected to t he hemodialysis catheter a subcutaneous tract was created from the stab incision to the venotomy site and the catheter was brought out th e venotomy site. The core and wire were removed and the h emodialysis catheter was advanced with its tip positioned in the right atrium. Both lumens demonstrated excellent blood return and flushed easily. Each lumen was instilled with heparin. The venotomy site was covered with glue and Steri-Strips. The catheter was secur ed to the skin with suture. A dry sterile dressing was applied. The dominick ace tolerated procedure well and was returned to the recovery ar ea/floor in stable condition. IMPRESSION: Placement of a right internal jugular tu nneled hemodialysis catheter. The catheter is ready for use. Signed: Jayden Villareal MD Report Verified Date/Time: 07/18/2020 1 1:50:32 Reading Location: [place] [address] Angio Body Reading Room Performing Organization Address City/State/Zipcode Phone Number [facility] Comprehensive metabolic panel (07/17/2020 5:17 AM CDT)Only the most recent of16 resultswithin the time period is included. Protein, Total 14.0 (H) 6.0 - 8.[address] [facility] gm/dL [facility] Albumin 2.6 (L) 3.5 - 5.[address] [facility] g/dL [facility] Alkaline 43 40 - 150 U/L [facility] Phosphatase [facility] Total Bilirubin 0.4 0.2 - 1.2 [facility] mg/dL [facility] Sodium 127 (L) 136 - 145 [facility] meq/L [facility] Potassium 4.1 3.5 - 5.1 [facility] meq/L [facility] Chloride 101 98 - 107 [facility] meq/L [facility] CO2 21 (L) 22 - 29 meq/L [facility] BUN 38 (H) 7 - 21 mg/dL [facility] Creatinine 6.38 (H) 0.57 - 1.25 [facility] mg/dL [facility] Glucose 65 (L) 70 - 105 [facility] mg/dL [facility] Calcium 6.9 (L) 8.4 - 10.2 [facility] mg/dL [facility] AST 18 5 - 34 U/L [facility] ALT 10 6 - 55 U/L [facility] EGFR 8Comment: mL/min/1.73 [facility] ESTIMATED GFR IS sq [facility] NOT ACCURATE MEDICAL CENTER CREATININE CLEARANCE IN PREDICTING GLOMERULAR FILTRATION RATE. ESTIMATED GFR IS NOT APPLICABLE FOR DIALYSIS PATIENTS. Specimen Blood Narrative Performed At Bulldozer Press Operator ID - PIAYA L [facility] ICAL CENTER Performing Organization Address City/State/Zipcode Phone Number [facility] [address] [place] [address] CENTER TRANSFUSION SERVICE REPORT - SCAN (07/14/2020 6:03 PM CDT)Only the most recent of5 resultswithin the time period is included. Narrative Performed At This result has an attachment that is no t available. HEMODIALYSIS INPATIENT (07/14/2020 12:40 PM CDT) Narrative Performed At Karo Escamilla RN 07/14/2020 1:03 PM HD set-up almost clotting mid-procedure, blood returned, rinsed and restarted with a new set-up. Luke curiel was restless when awake during the procedure, tugs on her HD cat heter and removing her gown, suggested to [address] [place] nurse Adali RN during report that patient would benefit with a sitter to [employer] for her safety. Treatment fairly tolerated. Nella l signs stable. HD duration 4 hours UF 1 L via rig ht IJ tunneled HD catheter. Lab Results Component Value Date WBC 8.4 07/14/2020 HGB 7.1 (L) 07/14/2020 HCT 22.6 (L) 07/14/2020 MCV 88.6 07/14/2020 PLT 216 07/14/2020 Lab Results Component Value Date GLUCOSE 91 07/14/2020 CALCIUM 6.8 (L) 07/14/2020 NA 132 (L) 07/14/2020 K 3.8 07/14/2020 CO2 26 07/14/2020 CL 102 07/14/2020 BUN 60 (H) 07/14/2020 CREATININE 5.15 (H) 07/14/2020 No components found for: HEPSAG Vitals: 07/14/20 1200 BP: 101/64 Pulse: 92 Resp: 13 Temp: SpO2: HEMODIALYSIS INPATIENT (07/12/2020 6:40 PM CDT) Narrative Performed At James Silverio RN 07/12/2020 6:4 3 PM Tolerated and completed 3 hours and 30 m inutes. No distress noted, asymptomatic. Denies any discomfo rt and pain. UF fluid removed 1 liter, 1 unit PRBC gi alli Packed cvc port with heparin 5000 units/ ml and secured line with blue caps, gauze and tape. Report given to Primary Nurse patient st [facility]. Latest lab result: Lab Results Component Value Date WBC 7.3 07/12/2020 HGB 6.4 (L) 07/12/2020 HCT 20.9 (L) 07/12/2020 MCV 90.9 07/12/2020 PLT 238 07/12/2020 Lab Results Component Value Date GLUCOSE 95 07/12/2020 CALCIUM 6.5 (L) 07/12/2020 NA 128 (L) 07/12/2020 K 3.7 07/12/2020 CO2 22 07/12/2020 CL 101 07/12/2020 BUN 85 (H) 07/12/2020 CREATININE 6.68 (H) 07/12/2020 James VILLAFUERTE, RN II 7S6- Adult Dialysis [phone] Type and screen (07/12/2020 6:28 AM CDT) Pathologist Sig nature Ab Scrn NEGATIVEComment: [facility] PEG [facility] ABO Grouping B [facility] Rh Factor POS [facility] Specimen Blood Performing Organization Address City/[facility]/Zipcode Phone Number [facility] [address] [place] [address] Immunofixation electrophoresis (VERÓNICA) (07/11/2020 5:46 AM CDT)Only the most recent of2 resultswithin the time period is included. IgG 10,294 (H) 540-1,822 [facility] mg/dL [facility] IgA 20 (L) 63 - 484 [facility] mg/dL [facility] IgM 19 (L) 22 - 293 [facility] mg/dL [facility] Serum VERÓNICA IgG-kappa, [facility] Identification monoclonal [facility] Pathologist: Jessy [facility] MD Doug [facility] (electronic MEDICAL CENTER signature) Specimen Blood Narrative Performed At Bulldozer Press Operator ID - MJ Mercado [facility] Performing Organization Address City/[facility]/Zipcode Phone Number [facility] [address] [place] [address] CENTER Protein electrophoresis, serum (07/11/2020 5:46 AM CDT)Only the most recent of2 resultswithin the time period is included. Albumin Fraction 3.8 3.5 - 5.5 [facility] g/dL [facility] Alpha 1 Fraction 0.5 (H) 0.2 - 0.4 [facility] g/dL [facility] Alpha 2 Fraction 1.4 (H) 0.5 - 0.9 [facility] g/dL [facility] Beta Fraction 1.5 (H) 0.6 - 1.1 [facility] g/[facility] Gamma Globulin 7.9 (H) 0.7 - 1.[address] [facility] Fraction g/dL [facility] Interpretation Previously [facility] reported [facility] monoclonal band MEDICAL CENTER present. No significant changes. Pathologist: Jessy Meyer MD [facility] (electronic MEDICAL CENTER signature) Protein, Total 15.0 (H) 6.0 - 8.[address] [facility] gm/dL [facility] Specimen Blood Narrative Performed At Bulldozer Press Operator ID - MOOSE Lucila [facility] Performing Organization Address City/State/Zipcode Phone Number [facility] [address] [place] [address] CENTER XR abdomen / KUB 1 view (07/08/2020 5:25 PM CDT)Only the most recent of2 resultswithin the time period is included. Specimen Narrative Performed At FINAL REPORT [facility] Abdomen x-ray Clinical Diagnosis: Corpak verification Comparison: 07/06/2020 Views: Two supine views of the abdomen o btained IMPRESSION: Feeding tube identified coursing below t he diaphragm with distal tip terminating within the right mid abdomen within the expected location of the duodenum. Suspected guidewire not ed within the lumen of the feeding tube. Bowel gas pattern is nonspecific but janice ears nonobstructive. Suspected phleboliths noted within the p jareth. Stable scoliosis and degenerative changes noted of the thorac olumbar spine. No acute osseous abnormality is identified. Signed: Rakesh Doe MD Report Verified Date/Time: 07/08/2020 17:42:18 Reading Location: [facility] [address] [facility] Procedure Note Interface, External Ris In - 07/08/2020 5:44 PM CDT FINAL REPORT Abdomen x-ray Clinical Diagnosis: Corpak verification Comparison: 07/06/2020 Views: Two supine views of the abdomen o btained IMPRESSION: Feeding tube identified coursing below t he diaphragm with distal tip terminating within the right mid abdomen within the expected location of the duodenum. Suspected guidewire not ed within the lumen of the feeding tube. Bowel gas pattern is nonspecific but janice ears nonobstructive. Suspected phleboliths noted within the p jareth. Stable scoliosis and degenerative changes noted of the thorac olumbar spine. No acute osseous abnormality is identified. Signed: Rakesh Doe MD Report Verified Date/Time: 07/08/2020 1 7:42:18 Reading Location: [facility] B1 C013W [facility] Room Performing Organization Address City/State/Zipcode Phone Number [facility] MR brain without IV contrast (07/08/2020 9:54 AM CDT) Specimen Narrative Performed At FINAL REPORT [facility] MR, BRAIN, WITHOUT CONTRAST INDICATION: Altered mental status TECHNIQUE: Multiplanar, multisequence MR imaging of the brain without intravenous contrast. COMPARISON: None FINDINGS: There is no restricted diffusion. Mild chronic white matter disease bilaterally. There is no mass effect or abnormal extra-axial fluid. The ventricles are normal in size and co nfiguration. The larger intracranial vascular flow-voids are pre served. Paranasal sinuses and mastoid air cells are clear. There is no rmal bone marrow signal intensity within the calvarium and skull base. IMPRESSION: Mild age-related changes. No recent infa rct or hemorrhage. Signed: JR Hanson Robert MD Report Verified Date/Time: 07/08/2020 10:39:36 Reading Location: [facility] B1 C013V Neuro [facility] Room Procedure Note Interface, External Ris In - 07/08/2020 10:41 AM CDT FINAL REPORT MR, BRAIN, WITHOUT CONTRAST INDICATION: Altered mental status TECHNIQUE: Multiplanar, multisequence MR imaging of the brain without intravenous contrast. COMPARISON: None FINDINGS: There is no restricted diffusion. Mild chronic white matter disease bilaterally. There is no mass effect or abnormal extra-axial fluid. The ventricles are normal in size and co nfiguration. The larger intracranial vascular flow-voids are pre served. Paranasal sinuses and mastoid air cells are clear. There is no rmal bone marrow signal intensity within the calvarium and skull base. IMPRESSION: Mild age-related changes. No recent infa rct or hemorrhage. Signed: JR Hanson Robert MD Report Verified Date/Time: 07/08/2020 1 0:39:36 Reading Location: [facility] B1 C013V Neuro Jasmin ding Room Performing Organization Address City/State/Zipcode Phone Number [facility] Ammonia (07/07/2020 11:18 AM CDT) Pathologist Sig nature Ammonia 34 18 - 72 mol/L [facility] Specimen Blood Narrative Performed At Bulldozer Press Operator ID - AAHAMID [facility] Performing Organization Address City/State/Zipcode Phone Number [facility] MEDICAL [address] [place] [address] CENTER EEG 2-12 HR Continuous Monitoring with Video (07/06/2020 5:48 PM CDT) Specimen Narrative Performed At Video EEG report [facility] GE RIS DATE OF TEST: 07/06/2020 DATE OF REPORT: 07/06/2020 ACC: [id number] Start time: 8:02 AM Stop time: 5:48 PM ICD-10: R56.0 CPT: 38977 HISTORY: 74 y.o. female with PMH of HSV, HTN, recently diagnosed multiple myeloma and ESRD presenting wit altered mental status. MEDICATIONS: Keppra, ativan, vancomycin, dilaudid, maxipine, protonix, heparin TECHNICAL SUMMARY: This is a digital video EEG recorded [facility] 32 input channels reviewed with bipolar and referential montages us ing the modified combinatorial system nomenclature. DESCRIPTION OF RECORD: The posterior dominant rhythm is not see n. The background consists of continuous diffuse delta/theta activi ty. There are generalized frontal predominant periodic discharges with triphasic morphology, frequency of 1-2 Hz seen in >90% of the recording. EVENTS: During this recording the patien t is noted to intermittently have mouth movements in the form of swal lowing/lip smacking movements with no ictal EEG seizure pattern. IMPRESSION: Abnormal EEG 1. Generalized Periodic Discharges (GPDs) 2. Continuous generalized background slowing CLINICAL CORRELATION: This abnormal EEG is consistent with an acute/subacute severe diffuse encephalop athy. Intermittent oral movements seen during this study was not associated with an ictal EEG seizure pattern. Aleyda Donahue MD Clinical Neurophysiology/Epilepsy Attend [facility] Procedure Note Interface, External Ris In - 07/07/2020 3:19 PM CDT Video EEG report [facility] DATE OF TEST: 07/06/2020 DATE OF REPORT: 07/06/2020 ACC: [id number] Start time: 8:02 AM Stop time: 5:48 PM ICD-10: R56.0 CPT: 64827 HISTORY: 74 y.o. female with PMH of HSV, HTN, recently diagnosed multiple myeloma and ESRD presenting [facility] altered mental status. MEDICATIONS: Keppra, ativan, vancomycin, dilaudid, maxipine, protonix, heparin TECHNICAL SUMMARY: This is a digital video EEG recorded [facility] 32 input channels reviewed with bipolar and referential montages us ing the modified combinatorial system nomenclature. DESCRIPTION OF RECORD: The posterior dominant rhythm is not see n. The background consists of continuous diffuse delta/theta activi ty. There are generalized frontal predominant periodic discharges with triphasic morphology, frequency of 1-2 Hz seen in >90% of the recording. EVENTS: During this recording the patien t is noted to intermittently have mouth movements in the form of swal lowing/lip smacking movements with no ictal EEG seizure pattern. IMPRESSION: Abnormal EEG 1. Generalized Periodic Disc harges (GPDs) 2. Continuous generalized ba ckground slowing CLINICAL CORRELATION: This abnormal EEG is consistent with an acute/subacute severe diffuse encephalop athy. Intermittent oral movements seen during this study was not associated with an ictal EEG seizure pattern. Aleyda Donahue MD Clinical Neurophysiology/Epilepsy Attend ing Performing Organization Address City/State/Zipcode Phone Number [facility] EEG 12-26 HR Continuous Monitoring with Video (07/06/2020 7:00 AM CDT) Specimen Narrative Performed At Video EEG report [facility] DATE OF TEST: 07/05/2020 DATE OF REPORT: 07/06/2020 ACC: [id number] Start time: 12:02 PM 07/05/2020 Stop time: 8:02 AM 07/06/2020 ICD-10: R56.0 CPT: 81836 HISTORY: 74 y.o. female with PMH of HSV, HTN, recently diagnosed multiple myeloma and ESRD presenting wit h altered mental status. MEDICATIONS: Keppra, ativan, vancomycin, dilaudid, maxipine, protonix, heparin TECHNICAL SUMMARY: This is a digital video EEG recorded [facility] 32 input channels reviewed with bipolar and referential montages us ing the modified combinatorial system nomenclature. DESCRIPTION OF RECORD: The posterior dominant rhythm is not see n. The background consists of continuous diffuse delta/theta activi ty. There are generalized frontal predominant periodic discharges with triphasic morphology, frequency of 1-2 Hz seen in >90% of the recording. EVENTS: During this recording the patien t is noted to intermittently have mouth movements in the form of swal lowing/lip smacking movements with no ictal EEG seizure pattern. IMPRESSION: Abnormal EEG 1. Generalized Periodic Discharges (GPDs) 2. Continuous generalized background slowing 3. Paroxysmal Events, no ictal EEG seizure pattern. CLINICAL CORRELATION: This abnormal EEG is consistent with an acute/subacute severe diffuse encephalop athy. Intermittent oral movements seen during this study was not associated with an ictal EEG seizure pattern. Aleyda Donahue MD Clinical Neurophysiology/Epilepsy Attend ing Procedure Note Interface, External Ris In - 07/06/2020 11:53 AM CDT Video EEG report [facility] DATE OF TEST: 07/05/2020 DATE OF REPORT: 07/06/2020 ACC: [id number] Start time: 12:02 PM 07/05/2020 Stop time: 8:02 AM 07/06/2020 ICD-10: R56.0 CPT: 40859 HISTORY: 74 y.o. female with PMH of HSV, HTN, recently diagnosed multiple myeloma and ESRD presenting wit h altered mental status. MEDICATIONS: Keppra, ativan, vancomycin, dilaudid, maxipine, protonix, heparin TECHNICAL SUMMARY: This is a digital video EEG recorded [facility] 32 input channels reviewed with bipolar and referential montages us ing the modified combinatorial system nomenclature. DESCRIPTION OF RECORD: The posterior dominant rhythm is not see n. The background consists of continuous diffuse delta/theta activi ty. There are generalized frontal predominant periodic discharges with triphasic morphology, frequency of 1-2 Hz seen in >90% of the recording. EVENTS: During this recording the patien t is noted to intermittently have mouth movements in the form of swal lowing/lip smacking movements with no ictal EEG seizure pattern. IMPRESSION: Abnormal EEG 1. Generalized Periodic Disc harges (GPDs) 2. Continuous generalized ba ckground slowing 3. Paroxysmal Events, no ict al EEG seizure pattern. CLINICAL CORRELATION: This abnormal EEG is consistent with an acute/subacute severe diffuse encephalop athy. Intermittent oral movements seen during this study was not associated with an ictal EEG seizure pattern. Aleyda Donhaue MD Clinical Neurophysiology/Epilepsy Attend ing Performing Organization Address City/[facility] Phone Number [facility] Vitamin D, 25-Hydroxy (07/06/2020 5:40 AM CDT) Pathologist Sig nature Vitamin D 25-Hydroxy 39.0 6.6 - 49.9 ng/mL [facility] Specimen Blood - Entire left upper arm (body stru cture) Narrative Performed At Effective 07/17/2017: Reference Range Ch umu [facility] New: 6.6-49.9 ng/mL Previous: 13.0-47.8 ng/mL Recommended Vitamin D Target Range: 30.0-40.0 ng/mL [employer]er [employer] Operator ID Shani MOOSE Gaytan Performing Organization Address [facility] [facility] Phone Number [address] [address] CENTER Triglycerides (07/06/2020 5:40 AM CDT) Pathologist Sig nature Triglycerides 173 mg/dL [facility] Specimen Blood - Entire left upper arm (body stru cture) Narrative Performed At TRIGLYCERIDE REFERENCE RANGE [facility] Low Risk <150 Borderline Risk 150-199 High Risk 200-499 Very High Risk >=500 Bul[employer]ozer Press Operator ALDO Shani Gaytan Performing Organization Address [facility] Phone Number [phone] [place] [address] CENTER Prealbumin (07/06/2020 5:40 AM CDT) Pathologist Sig nature Prealbumin 25 14 - 45 mg/dL [facility] Specimen Blood - Entire left upper arm (body stru cture) Narrative Performed At Bulldozer Press Operator ID - [facility] Performing Organization Address [facility] Phone Number [address] [address] CENTER PTH, intact (07/06/2020 5:40 AM CDT) Pathologist Sig nature PTH 591.5 (H) 8.5 - 72.5 pg/mL [facility] Specimen Blood - Entire left upper arm (body stru cture) Narrative Performed At Bulldozer Press Operator ID - [facility] Performing Organization Address [facility] Phone Number [address] [address] CENTER EKG-SCANNED (07/05/2020 10:45 AM CDT)Only the most recent of2 resultswithin the time period is included. Narrative Performed At This result has an attachment that is no t available. EEG 12-26 HR Continuous Monitoring with Video (07/05/2020 6:09 AM CDT) Specimen Narrative Performed At ELECTROENCEPHALOGRAM [facility] CONTINUOUS EEG VIDEO BEDSIDE MONITORING STUDY PATIENT NAME: LIAT VELÁSQUEZ START TIME: 11:42 AM, [facility]2019 END TIME: 12:02 P M, 2019 REPORT DATE: CPT: 19220 ICD10: R56.9 PATIENT HX: Patient with encephalopathy and suspected seizures. TECHNICAL SUMMARY The EEG recorded simultaneously with vid eo at the bedside. There is no occipital dominant rhythm. There is low to moderate voltage 4 to 5 Hz activity is present in all regions. Moderate voltage 1 to 2 Hz activity is present anteriorly. There are semi-periodic moderate voltage diphasic sharp waves in the fron enmanuel regions bilaterally. IMPRESSION: This patient's electroence phalogram is abnormal. There is no occipital dominant rhythm and the EEG is diffusely so with anterior slow (delta) activity associate d with diphasic sharp waves. The findings are consistent with the pre sence of a diffuse encephalopathy possibility of metabolic or hypoxic ischemic origin. No epileptiform activity is present. N o electrographic seizures were recorded. Joanna Anthony MD Procedure Note Interface, External Ris In - 07/05/2020 3:49 PM CDT ELECTROENCEPHALOGRAM CONTINUOUS EEG VIDEO BEDSIDE MONITORING STUDY PATIENT NAME: LIAT VELÁSQUEZ START TIME: 11:42 AM, ER 2019 END TIME: 12:02 PM, SEPT MBER 2019 REPORT DATE: 2019 CPT: 66726 ICD10: R56.9 PATIENT HX: Patient with encep halopathy and suspected seizures. TECHNICAL SUMMARY The EEG recorded simultaneously with vid eo at the bedside. There is no occipital dominant rhythm. There is low to moderate voltage 4 to 5 Hz activity is present in all regions. Moderate voltage 1 to 2 Hz activity is present anteriorly. There a re semi-periodic moderate voltage diphasic sharp waves in the fron enmanuel regions bilaterally. IMPRESSION: This patient's electroencep halogram is abnormal. There is no occipital dominant rhythm and the EEG is diffusely so with anterior slow (delta) activity associate d with diphasic sharp waves. The findings are consistent with the pre sence of a diffuse encephalopathy possibility of metabolic or hypoxic ischemic origin. No epileptiform activity is present. No electrographic seizures were recorded. Joanna Anthony MD Performing Organization Address City/[facility] Phone Number RIS Immunoglobulin A (IgA) (07/05/2020 4:59 AM CDT) Pathologist Sig nature IgA 29 (L) 63 - 484 mg/dL [facility] Specimen Blood - Entire left upper arm (body stru cture) Narrative Performed At Bulldozer Press Operator ID - SHERRY Trotter [facility] Performing Organization Address [facility]/Zipcode Phone Number [facility] [address] [place] [address] CENTER Immunoglobulin M (IgM) (07/05/2020 4:59 AM CDT) Pathologist Sig nature IgM 20 (L) 22 - 293 mg/dL [facility] Specimen Blood - Entire left upper arm (body stru cture) Narrative Performed At Bulldozer Press Operator ID - PIAYA L [facility] Performing Organization Address [facility]/Zipcode Phone Number [address] [address] CENTER Vancomycin level, random (07/04/2020 5:38 PM CDT) Pathologist Sig nature Vancomycin Rm 15.9 ug/mL [facility] [place] Specimen Blood Narrative Performed At Reference Range: No Normals [facility] Bulldozer Press Operator ID - DB Performing Organization Address [facility] Phone Number [address] [address] CENTER Troponin I (07/04/2020 5:07 AM CDT)Only the most recent of3 resultswithin the time period is included. Pathologist Sig nature Troponin I 0.08 (H) 0.00 - 0.03 ng/mL [facility] Specimen Blood Narrative Performed At Troponin I (TnI) levels must be interpreted [facility] in the context of the presenting symptoms and the clinical findings. Elevated TnI levels indicate myocardial damage, but are not specific for ischemic heart disease. Elevated TnI levels are seen in patients with other cardiac conditions (including myocarditis and congestive heart failure), and slight TnI elevations occur in patients with other conditions, including sepsis, renal failure, acidosis, acute neurological disease, and persistent tachyarrhythmia. Bulldozer Press Operator ID - PIAYA L Performing Organization Address City/[facility]/Zipcode Phone Number [address] [address] CENTER Venous doppler legs bilateral (07/04/2020 1:13 AM CDT) Pathologist Sig nature Ejection Fraction [facility] ECHO HEARTLAB MKCK [facility] CPACS Specimen Impressions Performed At Right Impression [facility] ECHO HEARTLAB MKCKESSON CPACS 1. There is no deep venous obstruction in the common femoral, profunda femoral, femoral, popliteal, posterior tibial or peroneal veins. 2. There is no superficial venous obstruction in the great saphenous vein where visualized. Left Impression 1. There is no deep venous obstruction in the common femoral, profunda femoral, femoral, popliteal, posterior tibial or peroneal veins. 2. There is no superficial venous obstruction in the great saphenous vein where visualized. Conclusions Summary Venous duplex imaging and compression of the bilateral lower extremities were performed. The veins were adequately visualized. The bilateral venous systems were patent and compressible with no evidence of thrombus. The venous Doppler waveforms were phasic with respiration . Signature Velocities are measured in cm/s ; Diameters are measured in cm Narrative Performed At LAB - Lower Extremities DVT Study [facility] ECHO HEARTLAB [facility]ON [facility] Demographics Patient Name [facility] Date of Study 07/04/2020 SAMANTHA Age 74 Visit Number [id number] Gender Female Accession Number [id number] Date of 1945 Referring Ari Amaya Room Number 734 Physician MD [facility] Sean Snyder Interpreting Lux Elkins Physician Procedure Type of Study: Veins: Lower Extremities DVT Study, VENOUS DOPPLER LEG, BILATERAL. Indications for Study:Elevated D-dimer. Patient Status:Routine. Study Location:Portable. Technical Quality:Adequate visualization . Risk Factors History of Disease + +----+ + !Diagnosis !Date!Comments ! + +----+ + !History/Risk Factors: ! !AMS, HTN, ESRD, Multiple Myeloma, Chemo ! + +----+ + Procedure Note Interface, External Ris In - 07/04/2020 8:38 AM CDT PV LAB - Lower Extremities DVT Study Demographics Patient Name LIAT VELÁSQUEZ Ethan e of Study 07/04/2020 SAMANTHA Age 74 Visit Number [id number] Gen anila Female Accession Number [id number] Ethan e of 1945 Referring Ari March m Number [id number] Physician MD [facility] Sean Snyder [facility] Patience Ybarra MD Phy sician Procedure Type of Study: Veins: Lower Extremities DVT Study, ALLI OUS DOPPLER LEG, BILATERAL. Indications for Study:Elevated D-dimer. Patient Status:Routine. Study Location:Portable. Technical Quality:Adequate visualization . Risk Factors History of Disease + +----+ + !Diagnosis !Date!Comments ! + +----+ + !History/Risk Factors: ! !AMS, HTN, E SRD, Multiple Myeloma, Chemo ! + +----+ + Impressions Right Impression 1. There is no deep venous obstruction i n the common femoral, profunda femoral, femoral, popliteal, posterior t ibial or peroneal veins. 2. There is no superficial venous obstru ction in the great saphenous vein where visualized. Left Impression 1. There is no deep venous obstruction i n the common femoral, profunda femoral, femoral, popliteal, posterior t ibial or peroneal veins. 2. There is no superficial venous obstru ction in the great saphenous vein where visualized. Conclusions Summary Venous duplex imaging and compression o f the bilateral lower extremities were performed. The veins were adequate ly visualized. The bilateral venous systems were patent and compressible wi th no evidence of thrombus. The venous Doppler waveforms were phasic wi th respiration . Signature Velocities are measured in cm/s ; Diamet ers are measured in cm Performing Organization Address City/State/[facility] Phone Number [facility] Urinalysis w/Microscopic + Reflex to Culture (07/04/2020 1:01 AM CDT)Only the most recent of2 resultswithin the time period is included. Color, UA Light P[place]a [facility] Clarity, UA Cloudy [facility] Specific [place], 1.010 1.001 - 1.035 [facility] pH, UA 7.0 5.0 - 8.0 [facility] Protein, UA 200 mg/dL (A) Negative [facility] Glucose, UA Negative Negative [facility] Ketones, UA Negative Negative [facility] Bilirubin, UA Negative Negative [facility] Blood, UA Moderate (A) Negative [facility] Nitrite, UA Negative Negative [facility] Leukocytes, UA Large (A) Negative [facility] Urobilinogen, UA 0.2 0.2 - 1.0 mg/dL [facility] RBC, UA 45 /HPF [facility] WBC, UA 3,609 /HPF [facility] Squam Epithel, UA 21 /HPF [facility] Specimen Source [facility] Specimen Urine Narrative Performed At Bulldozer Press Operator ID - tech [facility] Performing Organization Address City/State/Zipcode Phone Number [facility] [address] [place] [address] CENTER Urine culture (07/04/2020 1:01 AM CDT) Pathologist Sig nature Result >100,000 col/mL [facility] Enterococcus faecalis [facility] (A) Specimen Urine Organism Antibiotic Method Susceptibility Enterococcus faecalis Ampicillin <=2: Susce ptible Enterococcus faecalis Linezolid 2: Suscept ible Enterococcus faecalis Nitrofurantoin <=16: Susc eptible Enterococcus faecalis Tetracycline >=16: Resi stant Enterococcus faecalis Vancomycin 1: Suscept ible Performing Organization Address City/State/Zipcode Phone Number [facility] [address] [place] [address] [facility] (07/03/2020 10:43 PM CDT) Human Metapneumovirus Not detected Not detected, [facility] Rhinovirus Not detected Not detected, [facility] Influenza A Not detected Not detected, [facility] INFLUENZA A (NO [facility] SUBTYPE) [facility] Influenza A subtype H1 [facility] Influenza A Subtype H3 [facility] Influenza A Subtype [facility] H1-2009 [facility] Influenza B Not detected Not detected, [facility] Respiratory Syncytial Not detected Not detected, [facility] Virus [facility] Parainfluenza Virus 1 Not detected Not detected, [facility] Parainfluenza Virus 2 Not detected Not detected, [facility] Parainfluenza virus 3 Not detected Not detected, [facility] Parainfluenza Virus 4 Not detected Not detected, [facility] Adenovirus Not detected Not detected, [facility] Coronavirus 229E Not detected Not detected, [facility] Coronavirus HKU1 Not detected Not detected, [facility] Coronavirus NL63 Not detected Not detected, [facility] Coronavirus OC43 Not detected Not detected, [facility] Bordetella Pertussis Not detected Not detected, [facility] Chlamydophila Not detected Not detected, [facility] Pneumoniae [facility] Mycoplasma Pneumoniae Not detected Not detected, [facility] Equivocal [facility] Specimen Nasopharyngeal - Nasopharyngeal wall str ucture (body structure) Narrative Performed At Other viruses and bacteria not targeted by [facility] this PCR panel cannot be excluded; therefore clinical correlation and follow up of serology, culture results, and other molecular studies is required. The results are not intended to be used as the sole means for clinical diagnosis or patient management decisions. This sample was tested at the [facility] Molecular Diagnostics Laboratory using the [employer] Film[employer] Respiratory Panel. It is FDA cleared and has been verified and approved by the [facility]ostics [facility] for clinical use on nasopharyngeal swab specimens. The performance of the FilmArray RP has not been established in individuals who received influenza vaccine. Recent administration of a nasal influenza vaccine may cause false positive results for Influenza A and/or Influenza B. Performing Organization Address City/[facility]/Zipcode Phone Number [address] [address] CENTER Rapid Influenza A&B Screen (07/03/2020 10:43 PM CDT) Rapid Influenza A Negative Negative, [facility] Antigen Inconclusive [facility] Rapid influenza B Negative Negative, [facility] Antigen Inconclusive [facility] Specimen Nasal - Nasopharyngeal wall structure (b narinder structure) Performing Organization Address [facility] Phone Number [address] [address] CENTER Iron, TIBC, % sat. (without ferritin) (07/03/2020 10:39 PM CDT) Pathologist Sig nature Iron 93.0 40.0 - 160.0 [facility] ug/dL [facility] TIBC 143 (L) 250 - 450 ug/dL [facility] Iron % Saturation 65 (H) 20 - 55 % [facility] Specimen Blood Narrative Performed At Bulldozer Press Operator ID - PIAYA L [facility] Performing Organization Address [facility]/Zipcode Phone Number [address] [address] CENTER C-Reactive Protein (07/03/2020 10:39 PM CDT) Pathologist Sig nature CRP 0.61 (H) 0.00 - 0.50 mg/dL [facility] Specimen Blood Narrative Performed At Bulldozer Press Operator ID - CHRISTIANMARGARITA Trotter [facility] Performing Organization Address City/[facility] Phone Number [address] [address] [place] Fibrinogen (07/03/2020 10:39 PM CDT) Pathologist Sig [facility] Fibrinogen 202 (L) 225 - 434 mg/dl [facility] Specimen Blood Performing Organization Address [facility] Phone Number [address] [address] [place] D-dimer (07/03/2020 10:39 PM CDT) Pathologist Sig [facility] D-Dimer, Quant 7.31 (H) <0.50 MG/L FEU [facility] Specimen Blood Narrative Performed At Intended Use: The D-Dimer Assay can be used [facility] to aid in the diagnosis of Deep Vein Thrombosis (DVT) and Pulmonary Embolism Disease (PED). In patients with low pre-test probability, various studies concerning STA Liatest D-dimer test have reported that with a cutoff value of 0.50 MG/L FEU, the Negative Predictive Value (NPV) regarding the exclusion of thrombosis is within 95-100% range. Performing Organization Address City/[facility] Facility[facility] Phone Number [address] [address] CENTER TSH (07/03/2020 10:39 PM CDT) Pathologist Sig nature TSH 1.025 0.350 - 4.940 uIU/mL [facility] Specimen Blood Narrative Performed At Bulldozer Press Operator ID - SHERRY L [facility] Performing Organization Address City/[facility] Facility[facility] Phone Number [facility] [address] [address] CENTER T4 (07/03/2020 10:39 PM CDT) Pathologist Sig nature T4, Total 5.1 4.9 - 11.7 ug/dL [facility] Specimen Blood Narrative Performed At Bulldozer Press Operator ID - PIAYA L [facility] Performing Organization Address City/[facility] Facility[facility] Phone Number [address] [address] CENTER Ferritin (07/03/2020 10:39 PM CDT) Pathologist Sig nature Ferritin 2,365.63 (H) 5.00 - 275.00 [facility] ng/mL [facility] Specimen Blood Narrative Performed At Bulldozer Press Operator ID - PIAYA L [facility] Performing Organization Address City/[facility] Facility[facility] Phone Number [address] [address] CENTER Uric acid (07/03/2020 8:02 PM CDT) Pathologist Sig nature Uric Acid 7.8 (H) 2.6 - 7.2 mg/dL [facility] Specimen Blood Narrative Performed At Bulldozer Press Operator ID - DB [facility] Performing Organization Address [facility] Facility[facility] Phone Number [address] [address] CENTER B-type Natriuretic Factor (BNP) (07/03/2020 8:02 PM CDT) Pathologist Sig nature BNP 682 (H) 0 - 100 pg/mL [facility] Specimen Blood Narrative Performed At Bulldozer Press Operator ID - [facility] Performing Organization Address City/[facility] Facility[facility] Phone Number [address] [address] CENTER Lactic acid, venous (07/03/2020 6:31 PM CDT) Lactate, Venous 1.35Comment: 0.50 - 2.20 [facility] Specimen moderately mmol/L [facility] hemolyzed [facility] Specimen Blood Narrative Performed At Bulldozer Press Operator ID - AAJOLENE [facility] Performing Organization Address City/[facility]/Zipcode Phone Number [address] [address] [place] Blood Culture - Routine (Left Venipuncture) (07/03/2020 6:31 PM CDT)Only the most recent of2 resultswithin the time period is included. Pathologist Sig nature Result No growth in 5 days [facility] Specimen Blood - Entire left upper arm (body stru cture) Performing Organization Address [facility] Phone Number [address] [address] [place] Blood gas, venous (07/03/2020 6:31 PM CDT) Pathologist Sig nature pH, Alli 7.33 7.32 - 7.42 [facility] pCO2, Alli 45 41 - 51 mmHg [facility] pO2, Alli 37 25 - 40 mmHg [facility] O2 Sat, Alli 65.8 40.0 - 70.0 % [facility] HCO3, Alli 24 21 - 29 mmol/L [facility] Base Excess, Alli -2.2 (L) -2.0 - 3.0 [facility] mmol/L [facility] Patient Temperature 37.0 C [facility] FIO2 21.0 % [facility] Specimen Blood - Venous line (physical object) Performing Organization Address City/[facility]/Zipcode Phone Number [address] [place] [address] brain without IV contrast (07/03/2020 6:09 PM CDT) Specimen Narrative Performed At FINAL REPORT GE RIS CT, BRAIN, WITHOUT CONTRAST CLINICAL INDICATION: Altered mental st atus HYPOTENSION COMPARISON: None TECHNIQUE: Noncontrast axial CT imagin g of the brain and skull. Coronal and sagittal reformats obtained. DOSE REDUCTION: Dose modulation, iterati ve reconstruction, and/or weight-based adjustment of the mA/kV was utilized to reduce the radiation dose to as low as reasonably a chievable. FINDINGS: Cerebral parenchyma: Global parenchymal volume loss and white matter hypoattenuation. No mass, acute intracra nial hemorrhage or acute cortical infarct. Cerebellum and brainstem: No acute findi ngs. Ventricles: No acute hydrocephalus. Extra-axial spaces: Unremarkable. Calvarium and skull base: Heterogeneous mineralization with nonaggressive round lucent foci of the c alvarium. Paranasal sinuses and mastoid air cells: Imaged chambers are without acute abnormality. Orbital contents: Included portions unre markable. Additional findings: None. IMPRESSION: No acute intracranial abnormality. Involutional and chronic microangiopathi c ischemic changes. Osteopenia with multiple lucent lesions of the calvarium likely venous lakes or hemangiomata but multipl e myeloma cannot be excluded. Laboratory correlation is recommended. If there is persistent clinical concern for intracranial pathology, MR examination is recommended for furthe r characterization. Signed: Kb Celeste MD Report Verified Date/Time: 07/03/2020 18:20:13 Procedure Note Interface, External Ris In - 07/03/2020 6:[address] PM CDT FINAL REPORT CT, BRAIN, WITHOUT CONTRAST CLINICAL INDICATION: Altered mental sta tus HYPOTENSION COMPARISON: None TECHNIQUE: Noncontrast axial CT imaging of the brain and skull. Coronal and sagittal reformats obtained. DOSE REDUCTION: Dose modulation, iterati ve reconstruction, and/or weight-based adjustment of the mA/kV was utilized to reduce the radiation dose to as low as reasonably a chievable. FINDINGS: Cerebral parenchyma: Global parenchymal volume loss and white matter hypoattenuation. No mass, acute intracra nial hemorrhage or acute cortical infarct. Cerebellum and brainstem: No acute findi ngs. Ventricles: No acute hydrocephalus. Extra-axial spaces: Unremarkable. Calvarium and skull base: Heterogeneous mineralization with nonaggressive round lucent foci of the c alvarium. Paranasal sinuses and mastoid air cells: Imaged chambers are without acute abnormality. Orbital contents: Included portions unre markable. Additional findings: None. IMPRESSION: No acute intracranial abnormality. Involutional and chronic microangiopathi c ischemic changes. Osteopenia with multiple lucent lesions of the calvarium likely venous lakes or hemangiomata but multipl e myeloma cannot be excluded. Laboratory correlation is recommended. If there is persistent clinical concern for intracranial pathology, MR examination is recommended for furthe r characterization. Signed: Kb Celeste MD Report Verified Date/Time: 07/03/2020 1 8:20:13 Performing Organization Address City/State/Zipcode Phone Number [facility] XR chest 1 view portable / bedside (07/03/2020 5:35 PM CDT) Specimen Narrative Performed At FINAL REPORT [facility] History: Hypotension Comparison: None Findings: Hazy opacities in the bilatera l lungs, suggestive of pulmonary edema. Pneumonitis cannot be e xcluded. No pleural effusions or pneumothorax. Right central venous catheter tip is in the SVC region. The heart shadow is normal in size. The thoracic aorta is mildly tortuous. Degenerative changes are prese nt in the spine and shoulders. IMPRESSION: Mild pulmonary edema. Signed: Meng Ashley MD Report Verified Date/Time: 07/03/2020 18:09:32 Reading Location: [address] [facility] Reading Room Procedure Note Interface, External Ris In - 07/03/2020 6:11 PM CDT FINAL REPORT History: Hypotension Comparison: None Findings: Hazy opacities in the bilatera l lungs, suggestive of pulmonary edema. Pneumonitis cannot be e xcluded. No pleural effusions or pneumothorax. Right central venous catheter tip is in the SVC region. The heart shadow is normal in size. The thoracic aorta is mildly tortuous. Degenerative changes are prese nt in the spine and shoulders. IMPRESSION: Mild pulmonary edema. Signed: Meng Ashley MD Report Verified Date/Time: 07/03/2020 1 8:09:32 Reading Location: [address] [facility] Reading Room Performing Organization Address City/State/Zipcode Phone Number GE RIS after 08/17/2019 Insurance Payer Benefit Plan / Subscriber ID Effective Phone Address T ype Group Dates [employer] C[employer] [id number] 2019-Pre [facility] [employer]D [employer] sent Contracted (Home) [address] [place] [phone] Advance Directives For more information, please contact: [phone] Code Status Date Activated Date Inactivated Comments Full Code 07/03/2020 10:00 PM 08/05/2020 8:18 PM This code status was determined by: Patient
--- OUTSIDE RECORDS SUMMARY | 2020-08-17 20:52 | XMS REPORT | Continuity of Care Document ---
:1945 Author Organization [facility] t Address [address] [place] [address] Care Team Providers Name Role Phone Jordin RODRIGUEZ Attending Clinician Shasta Stephenson MD Attending Clinician Sabrina Hahn MD Attending Clinician Jon Michael MD Attending Clinician Nirali RODRIGUEZ Attending Clinician Cynthia Shultz MD Attending Clinician Elsy Morrell MD Attending Clinician Jayson Santos MD Attending Clinician [phone] JORDIN Attending Clinician Unavailable SHASTA STEPHENSON Admitting Clinician Unavailable Payers Payer Name Policy Type Policy Effective Date Expiration Date Sour ce Number CIGNA [id number] [address] [facility] [place] [id number] 2020-Pr esentMaps Contracted Problems Condition Condition Condition Status Onset Resolution Last Treating Co mments Source Name Details Category Date Date Treatment Clinician Date Multiple Multiple Disease Active [facility] without without 00:00: Medical remission remission 00 Cent er Anemia, Anemia, Disease Active 2019-[address] [facility] [address] unspecifie unspecifie 0-05 Karla kes - d type d type 00:00: Medical 00 Center Acute Acute Disease Active [facility] metabolic metabolic 928 [facility] - encephalop encephalop 00:00: Me dical athy athy 00 Center Altered Altered Disease Active [facility] mental mental 9- [facility] - status status 00:00: Medical 00 Center ESRD ESRD Disease Active [facility] needing needing [facility] - dialysis dialysis Medica l Center Allergies, Adverse Reactions, Alerts This patient has no known allergies or adverse reactions. Social History Social Habit Start Date Stop Date Quantity Comments Source History [facility] - Alcohol Std Drinks Medica l Center History [facility] - Alcohol Binge Medical [address] Sex Ass[facility] Tobacco use and 2020-07-21 2020-07-[address] [facility] Karla kes - exposure 00:00:00 00:00:00 [facility] Center Alcohol intake 2020-07-21 2020-07-21 [facility] non-drinker of Medical Ce nter alcohol (finding) History [facility] 2020-07-04 2020-07-[address] [facility] - Alcohol Frequency 00:00:00 00:00:00 [facility] Center Smoking Status Start Date Stop Date Source Never smoker [facility] - M edical Center Medications Ordered Filled Start Stop Current Ordering Indication Dosage Frequency Signature Comments Components Source Medication Medication Date Date Medication? Clinician (SIG) Name Name losartan 2019-10 Yes 50mg QD Take [address] [facility] (COZAAR) 50 0-30 by mouth Luke [facility] - MG tablet 18:18: daily. Medica l 38 Center ondansetron 2019-10 Yes cancer 4mg Take [address] (ZOFRAN) 4 0-30 chemotherap by mouth 3 [facility] - MG tablet 18:18: y-induced (three) Medical 38 nausea and times Center vomiting daily as needed for Nausea. valACYclovi 2019-10 Yes 500mg QD Take [address] (VALTREX) 0-30 mg by [facility] - 500 MG 18:18: mouth Medical tablet 38 daily. Center Missing or 2019-10 No 3.5mg Q7D Inject 3.[address] Non-Formula 0-30 10-29 mg [facility] - ry 12:58: 00:00 subcutaneo Medica l Medication 10 :00 usly once Cent er a week . Missing or 2019-10- No 5mg Take [address] Non-Formula 0-30 10- by mouth. Karla kes - ry 12:58: 00:00 Medical Medication 10 :00 Center dexAMETHaso 2019-10- No 20mg Take [address] ne 0-30 10-29 by mouth [facility] - (DECADRON) 12:58: 00:00 once evry M edical 6 MG tablet 10 :00 Cent er after chemo. pantoprazol 2019-10 Yes 40mg Q.5D Take [address] e 0-29 tablet (40 [facility] - (PROTONIX) 00:00: mg total) Me dical 40 MG 00 by mouth 2 Center tablet (two) times daily For 8 weeks. calcium 2019-10- Yes 1000mg QD Take 2 [facility] carbonate 0-29 10-29 tablets [facility] - (TUMS) 500 00:00: 23:59 (1,000 mg M edical mg chewable 00 :00 total) by Harika ter tablet mouth nightly. levETIRAcet 2019-10- Yes 250mg Q.5D Take [address] [facility] (KEPPRA) 0-29 10-29 tablet [facility] - 250 MG 00:00: 23:59 (250 mg Medical tablet 00 :00 total) by Center mouth 2 (two) times daily. Vital Signs Vital Name Observation Time Observation Value Comments Source Systolic blood 2020-08-05 16:24:00 119 mm[Hg] [facility] pressure [facility] Diastolic blood 2020-08-05 16:24:00 69 mm[Hg] [facility] S t [facility] Heart rate 2020-08-05 16:24:00 82 /min [facility] Body temperature 2020-08-05 16:24:00 36.56 Keyonna [facility] Respiratory rate 2020-08-05 16:24:00 18 /min [facility] Oxygen saturation in 2020-08-05 16:24:00 99 /min [facility] - Arterial blood by Medical Ce nter Pulse oximetry Body weight 2020-08-05 12:19:00 52.5 kg [facility] BMI 2020-08-05 12:19:00 21.88 kg/m2 [facility] Body height 2020-07-04 08:00:00 154.9 cm [facility] Procedures Procedure Date / Time Performing Clinician Source Performed POCT-GLUCOSE METER 2020-08-05 17:11:00 Latasha Michael liborio [facility] POCT-GLUCOSE METER 2020-08-05 13:05:00 [facility] 2020-08-05 12:38:32 Mikael Gomes [facility] POCT-GLUCOSE METER 2020-08-05 07:17:00 [facility] SARS-[facility]OV[facility] ([facility] 2020-08-05 06:15:00 [facility] COVID19 ([facility]) 2020-08-05 06:15:00 Mk Boss [facility] BASIC METABOLIC PANEL (7) 2020-08-05 03:52:00 Latasha Michael [facility] PHOSPHORUS 2020-08-05 03:52:00 Latasha Michael [facility] MAGNESIUM 2020-08-05 03:52:00 Wilbert Shultz [facility] CBC W/PLT COUNT & AUTO 2020-08-05 03:52:00 Latasha Michael [facility] POCT-GLUCOSE METER 2020-08-04 21:29:00 Latasha Michael [facility] HEPATITIS B PANEL 2020-08-04 18:36:00 Latasha Michael [facility] HEPATITIS B CORE ANTIBODY, 2020-08-04 18:36:00 Mk Boss [facility] POCT-GLUCOSE METER 2020-08-04 16:44:00 FernandaLatasha ye [facility] POCT-GLUCOSE METER 2020-08-04 08:52:00 Fernanda, Latasha Webb [facility] BASIC METABOLIC PANEL (7) 2020-08-04 03:54:00 Fernanda, Latasha Lockhartstarla a [facility] PHOSPHORUS 2020-08-04 03:54:00 Fernanda, Latasha Lockhartstarlaa [facility] MAGNESIUM 2020-08-04 03:54:00 Wilbert Shultz [facility] CBC W/PLT COUNT & AUTO 2020-08-04 03:54:00 Fernanda, Latasha Webb C [facility] (CELLAVISION MANUAL DIFF) 2020-08-04 03:54:00 Fernanda, Latasha Lockhartstarla debbie [facility] POCT-GLUCOSE METER 2020-08-03 20:58:00 [facility] & 2020-08-03 18:00:00 Wilbert Shultz [facility] - REF LABS) [facility] POCT-GLUCOSE METER 2020-08-03 17:43:00 Fern[facility] POCT-GLUCOSE METER 2020-08-03 08:37:00 Fernanda[facility] 2020-08-03 08:17:00 Mikael Gomes [facility] BASIC METABOLIC PANEL (7) 2020-08-03 04:00:00 Fernanda, Latasha Richystarla a [facility] PHOSPHORUS 2020-08-03 04:00:00 Fernanda, Latasha Lockhartstarladebbie [facility] MAGNESIUM 2020-08-03 04:00:00 Wilbert Shultz [facility] CBC W/PLT COUNT & AUTO 2020-08-03 04:00:00 FernandaLatasha yea C HI [facility] DIFFERENTIAL [facility] POCT-GLUCOSE METER 2020-08-02 22:04:00 Fernanda, Latasha [facility] POCT-GLUCOSE METER 2020-08-02 17:53:00 Fernanda, Latasha Webb [facility] POCT-GLUCOSE METER 2020-08-02 17:25:00 Fernanda, Latasha Webb [facility] POCT-GLUCOSE METER 2020-08-02 12:22:00 Fernanda, Latasha Webb [facility] POCT-GLUCOSE METER 2020-08-02 08:14:00 Fernanda, Latasha Webb [facility] POCT-GLUCOSE METER 2020-08-02 06:50:00 Fern[facility] BASIC METABOLIC PANEL (7) 2020-08-02 03:37:00 Fernanda, Latasha munguia [facility] IMMUNOGLOBULIN G (IGG) 2020-08-02 03:37:00 Leonarda Jones [facility] PHOSPHORUS 2020-08-02 03:37:00 Fernanda, Latasha Webb [facility] MAGNESIUM 2020-08-02 03:37:00 Wilbert Shultz [facility] CBC W/PLT COUNT & AUTO 2020-08-02 03:37:[address] [facility] KAPPA / LAMBDA LIGHT 2020-08-02 03:36:00 Leonarda Jones [facility] HEMODIALYSIS INPATIENT 2020-08-01 23:56:24 Mikael Gomes [facility] POCT-GLUCOSE METER 2020-08-01 17:11:00 Fernanda, Latasha Lockhartliborio [facility] BASIC METABOLIC PANEL (7) 2020-08-01 15:42:00 Mikael Gomes [facility] PHOSPHORUS 2020-08-01 15:42:00 Mikael Gomes [facility] POCT-GLUCOSE METER 2020-08-01 12:47:00 Fernanda Latasha Richyliborio [facility] POCT-GLUCOSE METER 2020-08-01 07:39:00 Fernanda, Latasha Webb [facility] BASIC METABOLIC PANEL (7) 2020-08-01 03:40:00 Fernanda, Latasha Sloan a [facility] HEPATIC FUNCTION PANEL 2020-08-01 03:40:00 Fernanda, Latasha Lockhartliborio C HI [facility] PHOSPHORUS 2020-08-01 03:40:00 Fernanda, Latasha Sloana [facility] MAGNESIUM 2020-08-01 03:40:00 JoudahWilbert [facility] CBC W/PLT COUNT & AUTO 2020-08-01 03:40:00 Mikayla Mireles HI [facility] DIFFERENTIAL [facility] PREPARE LEUKO-REDUCED RBC 2020-07-31 23:54:00 Fernanda, Latasha Sloan a [facility] POCT-GLUCOSE METER 2020-07-31 21:24:00 Fernanda, Latasha Webb [facility] POCT-GLUCOSE METER 2020-07-31 11:20:00 Fernanda, Latasha Webb [facility] POCT-GLUCOSE METER 2020-07-31 07:38:00 Fernanda, Latasha Webb [facility] BASIC METABOLIC PANEL (7) 2020-07-31 07:36:00 Fernanda, Latasha Sloan a [facility] PHOSPHORUS 2020-07-31 07:36:00 Fernanda, Latasha Sloana [facility] MAGNESIUM 2020-07-31 07:36:00 JoudaWilbert murguia [facility] POCT-GLUCOSE METER 2020-07-31 07:19:00 Fernanda, Latasha Webb [facility] CBC W/PLT COUNT & AUTO 2020-07-31 06:19:00 Mikayla Mireles HI [facility] DIFFERENTIAL [facility] POCT-GLUCOSE METER 2020-07-30 21:36:00 Fernanda, Latasha Sloana [facility] POCT-GLUCOSE METER 2020-07-30 16:58:[address] [facility] POCT-GLUCOSE METER 2020-07-30 12:09:00 Fernanda [facility] TRANSFUSE LEUKO-REDUCED 2020-07-30 10:22:[address] [facility] RED BLOOD CELLS [facility] POCT-GLUCOSE METER 2020-07-30 08:49:00 Fernanda [facility] TYPE AND SCREEN, AUTOMATED 2020-07-30 07:54:00 Fernanda Latashasa Garcia na [facility] HEMODIALYSIS INPATIENT 2020-07-30 07:50:04 Sarbjit Mcmahon [facility] HEPATITIS B SURFACE 2020-07-30 07:44:00 Sarbjit Mcmahon [facility] BASIC METABOLIC PANEL (7) 2020-07-30 04:48:00 Latasha Michael [facility] PHOSPHORUS 2020-07-30 04:48:00 Fernanda Latasha Richyliborio [facility] MAGNESIUM 2020-07-30 04:48:00 Wilbert Shultz [facility] CBC W/PLT COUNT & AUTO 2020-07-30 04:48:[address] [facility] POCT-GLUCOSE METER 2020-07-29 22:07:00 Wilbert Shultz katia [facility] POCT-GLUCOSE METER 2020-07-29 17:01:00 Wilbert Shultz katia [facility] POCT-GLUCOSE METER 2020-07-29 11:57:00 Wilbert Shultz katia [facility] POCT-GLUCOSE METER 2020-07-29 07:58:00 Wilbert Shultz [facility]evans [facility] BASIC METABOLIC PANEL (7) 2020-07-29 04:11:00 FernandaLatasha ye [facility] PHOSPHORUS 2020-07-29 04:11:00 Latasha Michael [facility] MAGNESIUM 2020-07-29 04:11:00 Carrington Wilbert [facility] CBC W/PLT COUNT & AUTO 2020-07-29 04:11:[address] [facility] - DIFFERENTIAL [facility] POCT-GLUCOSE METER 2020-07-28 22:23:00 CarringtonWilbert [facility] POCT-GLUCOSE METER 2020-07-28 18:13:00 Jogin Wilbert katia [facility] POCT-GLUCOSE METER 2020-07-28 13:02:00 ArnavbladeWilbert [facility] BASIC METABOLIC PANEL (7) 2020-07-28 03:54:00 Latasha Michael [facility] PHOSPHORUS 2020-07-28 03:54:00 Latasha Michael [facility] MAGNESIUM 2020-07-28 03:54:00 ArnavbladeWilbert em[facility]Daniel [facility] CBC W/PLT COUNT & AUTO 2020-07-28 03:54:00 Mikayla Mireles HI [facility] DIFFERENTIAL [facility] POCT-GLUCOSE METER 2020-07-27 22:19:00 Carrington Wilbert [facility] SARS-COV2/RT-PCR ([facility] & 2020-07-27 18:28:[address] [facility] POCT-GLUCOSE METER 2020-07-27 17:23:00 Wilbert Shultz [facility] POCT-GLUCOSE METER 2020-07-27 11:25:00 Wilbert Shultz [facility] POCT-GLUCOSE METER 2020-07-27 08:20:00 Angus Campoverde [facility] BASIC METABOLIC PANEL (7) 2020-07-27 04:01:00 Latasha Michaelunn a [facility] PHOSPHORUS 2020-07-27 04:01:00 Melva Michaelsa Hystarladebbie [facility] MAGNESIUM 2020-07-27 04:01:00 Wilbert Shultz [facility] CBC W/PLT COUNT & AUTO 2020-07-27 04:01:[address] [facility] - DIFFERENTIAL [facility] PREPARE LEUKO-REDUCED RBC 2020-07-26 23:54:00 Wilbert Shultz [facility] POCT-GLUCOSE METER 2020-07-26 21:35:00 Givecassi [facility] POCT-GLUCOSE METER 2020-07-26 [facility]:49[facility] 2020-07-26 12:00:00 Sarbjit Mcmahon [facility] POCT-GLUCOSE METER 2020-07-26 11:53:00 Nirali [facility] POCT-GLUCOSE METER 2020-07-26 08:07:00 Nirali [facility] BASIC METABOLIC PANEL (7) 2020-07-26 04:44:00 Fernanda Latasha Lockhartstarla a [facility] PHOSPHORUS 2020-07-26 04:44:00 Fernanda Latasha Hyunna [facility] MAGNESIUM 2020-07-26 04:44:00 Wilbert Shultz [facility] CBC W/PLT COUNT & AUTO 2020-07-26 04:44:[address] [facility] - DIFFERENTIAL [facility] POCT-GLUCOSE METER 2020-07-25 21:14:00 Nirali [facility] TRANSFUSE LEUKO-REDUCED 2020-07-25 17:34:[address] [facility] RED BLOOD CELLS [facility] POCT-GLUCOSE METER 2020-07-25 16:57:00 Nirali [facility] POCT-GLUCOSE METER 2020-07-25 12:06:00 Nirali [facility] ABORH, MANUAL 2020-07-25 09:35:00 Wilbert Shultz [facility] ANTIBODY SCREEN 2020-07-25 09:35:00 Wilbert Shultz [facility]ev[facility] POCT-GLUCOSE METER 2020-07-25 07:58:00 Nirali [facility] BASIC METABOLIC PANEL (7) 2020-07-25 04:45:00 Latasha Michael a [facility] VISCOSITY, SERUM 2020-07-25 04:45:00 EscudiLeonarda castillo [facility] IMMUNOGLOBULIN G (IGG) 2020-07-25 04:45:00 EscLeonarad emanuel [facility] KAPPA / LAMBDA LIGHT 2020-07-25 04:45:00 Leonarda Jones [facility] PHOSPHORUS 2020-07-25 04:45:00 FernandaLatasha ye [facility] MAGNESIUM 2020-07-25 04:45:00 Wilbert Shultz [facility] CBC W/PLT COUNT & AUTO 2020-07-25 04:45:[address] [facility] POCT-GLUCOSE METER 2020-07-24 22:51:00 Nirali [facility] POCT-GLUCOSE METER 2020-07-24 17:49:00 Nirali [facility] POCT-GLUCOSE METER 2020-07-24 12:20:00 Nirali [facility] POCT-GLUCOSE METER 2020-07-24 08:31:00 Nirali [facility] BASIC METABOLIC PANEL (7) 2020-07-24 05:33:00 Latasha Michael a [facility] HEPATIC FUNCTION PANEL 2020-07-24 05:33:00 Leonarda Jones [facility] MAGNESIUM 2020-07-24 05:33:00 Mikayla Mireles [facility] PHOSPHORUS 2020-07-24 05:33:00 Fernanda, Latasha Hyunna [facility] CBC W/PLT COUNT & AUTO 2020-07-24 05:33:00 Mikayla Mireles HI [facility] POCT-GLUCOSE METER 2020-07-23 21:25:00 Giveon, [facility] HEMODIALYSIS INPATIENT 2020-07-23 20:06:35 Mikael Gomes CH, I [facility] POCT-GLUCOSE METER 2020-07-23 12:01:00 Giveon, [facility] POCT-GLUCOSE METER 2020-07-23 08:03:00 Giveon, [facility] BASIC METABOLIC PANEL (7) 2020-07-23 04:09:00 Fernanda, Latasha Sloan a [facility] MAGNESIUM 2020-07-23 04:09:00 Mikayla Mireles [facility] PHOSPHORUS 2020-07-23 04:09:00 Fernanda, Latasha Richyunna [facility] CBC W/PLT COUNT & AUTO 2020-07-23 04:09:00 Mikayla Mireles HI [facility] POCT-GLUCOSE METER 2020-07-22 21:31:00 Giveon, [facility] POCT-GLUCOSE METER 2020-07-22 16:59:00 Giveon, [facility] POCT-GLUCOSE METER 2020-07-22 12:17:00 Giveon, [facility] POCT-GLUCOSE METER 2020-07-22 07:50:00 Giveon, [facility] BASIC METABOLIC PANEL (7) 2020-07-22 04:45:00 Fernanda, Latasha Hyunn a [facility] MAGNESIUM 2020-07-22 04:45:00 Mikayla Mireles [facility] PHOSPHORUS 2020-07-22 04:45:00 Fernanda, Latasha Hyunna [facility] CBC W/PLT COUNT & AUTO 2020-07-22 04:45:00 Mikayla Mireles HI [facility] HEMODIALYSIS INPATIENT 2020-07-21 23:12:34 Mikael Gomes I [facility] POCT-GLUCOSE METER 2020-07-21 22:52:00 Givecassi [facility] POCT-GLUCOSE METER 2020-07-21 22:33:00 Nieshacassi [facility] POCT-GLUCOSE METER 2020-07-21 17:49:00 Giveon [facility] POCT-GLUCOSE METER 2020-07-21 16:57:00 Nirali [facility] REPORT OF PROCEDURE - 2020-07-21 15:42:48 AmaraSaloni mensah [facility] - ENDOSCOPY [facility] UPPER ENDOSCOPY,PEG 2020-07-21 14:50:00 Saloni Santos [facility] I [facility] POCT-GLUCOSE METER 2020-07-21 13:04:00 Nirali [facility] POCT-GLUCOSE METER 2020-07-21 12:26:00 Nirali [facility] POCT-GLUCOSE METER 2020-07-21 08:19:00 Nirali [facility] BASIC METABOLIC PANEL (7) 2020-07-21 04:37:00 FernandaLatasha a [facility] MAGNESIUM 2020-07-21 04:37:00 Mikayla Mireles [facility] PHOSPHORUS 2020-07-21 04:37:00 FernandaJeffrey yeyssa Hystarlaa [facility] PT/APTT 2020-07-21 04:37:00 Fernanda, Latasha Hyunna [facility] CBC W/PLT COUNT & AUTO 2020-07-21 04:37:[address] [facility] POCT-GLUCOSE METER 2020-07-20 16:38:00 Fernanda, Latasha Hyunna [facility] POCT-GLUCOSE METER 2020-07-20 12:06:00 Fernanda, Latasha Hyunna [facility] SARS-COV2/RT-PCR ([facility] & 2020-07-20 08:49:00 Gildardo Santos [facility] - REF LABS) [facility] POCT-GLUCOSE METER 2020-07-20 07:40:00 Fernanda, Latasha Webb [facility] CBC W/PLT COUNT & AUTO 2020-07-20 03:35:[address] [facility] BASIC METABOLIC PANEL (7) 2020-07-20 03:34:00 Fernanda, Latasha munguia [facility] IMMUNOGLOBULIN G (IGG) 2020-07-20 03:34:00 NatalioFernando peña [facility] KAPPA / LAMBDA LIGHT 2020-07-20 03:34:00 Fernando Lance [facility] MAGNESIUM 2020-07-20 03:34:00 Mikayla Mireles [facility] PHOSPHORUS 2020-07-20 03:34:00 Fern[facility] LEUKO-REDUCED RBC 2020-07-19 23:54:00 Fernanda, Latasha munguia [facility] POCT-GLUCOSE METER 2020-07-19 18:14:00 Fernanda, Latasha [facility] POCT-GLUCOSE METER 2020-07-19 17:26:00 Fernanda, Latasha [facility] POCT-GLUCOSE METER 2020-07-19 16:52:00 Fernanda Latasha [facility] HEMODIALYSIS INPATIENT 2020-07-19 15:27:29 Mikael Gomes CH [facility] HEMODIALYSIS INPATIENT 2020-07-19 12:47:55 Mikael Gomes CH [facility] POCT-GLUCOSE METER 2020-07-19 11:24:00 Fernanda[facility] POCT-GLUCOSE METER 2020-07-19 07:51:00 Fern[facility] BASIC METABOLIC PANEL (7) 2020-07-19 03:39:00 Fernanda, Latasha munguia [facility] CBC (HEMOGRAM ONLY) 2020-07-19 03:39:00 Fernanda, Latasha Webb [facility] MAGNESIUM 2020-07-19 03:39:00 Chi Mikayla Aguilar [facility] PHOSPHORUS 2020-07-19 03:39:00 Fernanda, Latasha Webb [facility] CBC W/PLT COUNT & AUTO 2020-07-19 03:39:[address] [facility] POCT-GLUCOSE METER 2020-07-18 23:34:00 Fernanda, Latasha Hyliborio [facility] HEMODIALYSIS INPATIENT 2020-07-18 23:00:00 Mikael Gomes [facility] I [facility] TRANSFUSE LEUKO-REDUCED 2020-07-18 21:32:41 Fernanda, Latasha liborio [facility] RED BLOOD CELLS [facility] POCT-GLUCOSE METER 2020-07-18 16:40:00 Fernanda, [facility] ECG 12-LEAD 2020-07-18 12:41:10 Unknown, Hl7 Doctor [facility] POCT-GLUCOSE METER 2020-07-18 12:09:00 Fernanda, [facility] ABORH, MANUAL 2020-07-18 12:07:00 Fernanda, Latasha liborio [facility] ANTIBODY SCREEN 2020-07-18 12:07:00 Fernanda, [facility] IR TUNNELED DIALYSIS 2020-07-18 11:40:00 Fernanda, [facility] PT/APTT 2020-07-18 08:44:00 Fernanda, [facility] POCT-GLUCOSE METER 2020-07-18 07:16:00 Fernanda, [facility] BASIC METABOLIC PANEL (7) 2020-07-18 05:59:00 FernandaLatasha ye [facility] MAGNESIUM 2020-07-18 05:59:00 Mikayla Mireles [facility] PHOSPHORUS 2020-07-18 05:59:00 Fernanda, Latasha Webb [facility] CBC W/PLT COUNT & AUTO 2020-07-18 05:59:00 MirelesMikayla Jess HI [facility] POCT-GLUCOSE METER 2020-07-17 21:11:00 Fernanda, Latasha Webb [facility] POCT-GLUCOSE METER 2020-07-17 17:04:00 Fernanda, Latasha Webb [facility] BASIC METABOLIC PANEL (7) 2020-07-17 17:01:00 Fernanda, Latasha Sloan a [facility] POCT-GLUCOSE METER 2020-07-17 11:54:00 Fernanda, Latasha liborio [facility] POCT-GLUCOSE METER 2020-07-17 07:24:00 Fernanda, Latasha Webb [facility] MAGNESIUM 2020-07-17 05:17:00 ChiMikayla [facility] COMPREHENSIVE METABOLIC 2020-07-17 05:17:00 ChiMikayla [facility] PHOSPHORUS 2020-07-17 05:17:00 Fernanda, aLtasha Webb [facility] CBC W/PLT COUNT & AUTO 2020-07-17 05:17:[address] [facility] POCT-GLUCOSE METER 2020-07-16 23:38:00 Fernanda, Latasha Webb [facility] POCT-GLUCOSE METER 2020-07-16 16:34:00 Fernanda, Latasha Sloana [facility] ECG 12-LEAD 2020-07-16 16:17:03 Unknown, Hl7 Doctor [facility] POCT-GLUCOSE METER 2020-07-16 11:56:00 [facility] PO[facility]SE [facility] 2020-07-16 07:43:00 FernandaLatasha ye liborio [facility] MAGNESIUM 2020-07-16 05:33:00 Mikayla Mireles [facility] COMPREHENSIVE METABOLIC 2020-07-16 05:33:00 Mikayla Mireles [facility] PHOSPHORUS 2020-07-16 05:33:00 Fernanda, Latasha [facility] CBC W/PLT COUNT & AUTO 2020-07-16 05:33:[address] [facility] POCT-GLUCOSE METER 2020-07-15 23:58:[address] [facility] POCT-GLUCOSE METER 2020-07-15 17:36:00 [facility] 2020-07-15 11:09:00 [facility] POCT-GLUCOSE METER 2020-07-15 07:25:00 [facility] MAGNESIUM 2020-07-15 06:56:00 Mikayla Mireles [facility] COMPREHENSIVE METABOLIC 2020-07-15 06:56:00 Chi Mikayla [facility] PHOSPHORUS 2020-07-15 06:56:00 [facility]T [facility] & AUTO 2020-07-15 06:56:[address] [facility] POCT-GLUCOSE METER 2020-07-15 00:52:00 [facility] TRANSFUSION SERVICE REPORT 2020-07-14 18:03:36 Felicia [facility] - - SCAN [facility] POCT-GLUCOSE METER 2020-07-14 17:46:00 [facility] HEMOD[facility]IS INPATIENT 2020-07-14 12:40:00 Patience Combs [facility] MAGNESIUM 2020-07-14 08:27:00 Chi Mikayla [facility] COMPREHENSIVE METABOLIC 2020-07-14 08:27:00 Chi Mikayla [facility] PHOSPHORUS 2020-07-14 08:27:00 [facility] W/PLT COUNT & AUTO 2020-07-14 08:27:[address] [facility] PREPARE LEUKO-REDUCED RBC 2020-07-13 23:54:00 Jovani [facility] POCT-GLUCOSE METER 2020-07-13 21:48:[address] [facility] TRANSFUSION SERVICE REPORT 2020-07-13 18:02:57 Felicia [facility] POCT-GLUCOSE METER 2020-07-13 17:08:00 [facility] POCT-GLUCOSE METER 2020-07-13 10:58:00 Massmary kate, [facility] MAGNESIUM 2020-07-13 04:52:00 Mikayla Mireles [facility] COMPREHENSIVE METABOLIC 2020-07-13 04:52:00 Mikayla Mireles [facility] PHOSPHORUS 2020-07-13 04:52:00 [facility] W/[facility]T [facility] & AUTO 2020-07-13 04:52:[address] [facility] POCT-GLUCOSE METER 2020-07-12 22:55:00 Massmary kate, [facility] HEMODIALYSIS INPATIENT 2020-07-12 18:40:14 Patience Combs [facility] POCT-GLUCOSE METER 2020-07-12 17:57:00 Massumi, [facility] POCT-GLUCOSE METER 2020-07-12 17:39:00 [facility], [facility] TRANSFUSE LEUKO-REDUCED 2020-07-12 16:49:36 [facility], [facility] - RED BLOOD CELLS [facility] POCT-GLUCOSE METER 2020-07-12 07:29:00 [facility], [facility] TYPE AND SCREEN 2020-07-12 06:28:00 [facility], [facility] MAGNESIUM 2020-07-12 04:13:00 Mikayla Mireles [facility] COMPREHENSIVE METABOLIC 2020-07-12 04:13:00 Mikayla Mireles [facility] PHOSPHORUS 2020-07-12 04:13:00 [facility] CBC W/PLT COUNT & AUTO 2020-07-12 04:13:[address] [facility] POCT-GLUCOSE METER 2020-07-11 20:31:00 [facility], [facility] POCT-GLUCOSE METER 2020-07-11 16:29:00 [facility], [facility] POCT-GLUCOSE METER 2020-07-11 11:35:00 [facility], [facility] MAGNESIUM 2020-07-11 05:47:00 Mikayla Mireles [facility] COMPREHENSIVE METABOLIC 2020-07-11 05:47:00 Mikayla Mireles [facility] PHOSPHORUS 2020-07-11 05:47:00 Fernanda, [facility] PROTEIN ELECTROPHORESIS, 2020-07-11 05:46:00 EscLeonarda emanuel [facility] KAPPA / LAMBDA LIGHT 2020-07-11 05:46:[address] [facility] IMMUNOFIXATION 2020-07-11 05:46:00 Jessy Camacho [facility] - ELECTROPHORESIS (VERÓNICA) [facility] nter CBC W/PLT COUNT & AUTO 2020-07-11 05:46:[address] [facility] POCT-GLUCOSE METER 2020-07-11 05:36:00 [facility] POCT-GLUCOSE METER 2020-07-10 23:17:00 [facility] POCT-GLUCOSE METER 2020-07-10 16:43:00 [facility] POCT-GLUCOSE METER 2020-07-10 11:51:00 [facility], [facility] MAGNESIUM 2020-07-10 05:20:00 Mikayla Mireles [facility] COMPREHENSIVE METABOLIC 2020-07-10 05:20:00 Mikayla Mireles [facility] PHOSPHORUS 2020-07-10 05:20:00 FernandaLatasha yestarlaa [facility] CBC W/PLT COUNT & AUTO 2020-07-10 05:20:[address] [facility] POCT-GLUCOSE METER 2020-07-10 05:13:00 [facility] POCT-GLUCOSE METER 2020-07-09 23:15:00 [facility] POCT-GLUCOSE METER 2020-07-09 17:06:[address] [facility] HEMODIALYSIS INPATIENT 2020-07-09 10:24:46 Lucien El I [facility] POCT-GLUCOSE METER 2020-07-09 05:53:00 Ari Stephenson [facility] MAGNESIUM 2020-07-09 04:34:00 Mikayla Mireles [facility] COMPREHENSIVE METABOLIC 2020-07-09 04:34:00 Chi Mikayla Aguilar [facility] PHOSPHORUS 2020-07-09 04:34:00 Fernanda Lat[facility] CBC W/PLT COUNT & AUTO 2020-07-09 04:34:00 Mikayla Mireles HI [facility] DIFFERENTIAL [facility] POCT-GLUCOSE METER 2020-07-08 21:55:00 Le [facility] XR ABDOMEN / KUB 1 VIEW 2020-07-08 17:25:00 Ashley Hahn [facility] POCT-GLUCOSE METER 2020-07-08 17:14:00 Le [facility] POCT-GLUCOSE METER 2020-07-08 11:36:00 Le [facility] MR BRAIN WITHOUT IV 2020-07-08 09:54:00 Chato Uriarte [facility] POCT-GLUCOSE METER 2020-07-08 05:58:00 Le [facility] CBC W/PLT COUNT & AUTO 2020-07-08 04:34:[address] [facility] MAGNESIUM 2020-07-08 04:33:00 Mikayla Mireles [facility] COMPREHENSIVE METABOLIC 2020-07-08 04:33:00 Mikayla Mireles [facility] PHOSPHORUS 2020-07-08 04:33:00 Latasha [facility] POCT-GLUCOSE METER 2020-07-08 00:18:00 Le [facility] POCT-GLUCOSE METER 2020-07-07 18:21:00 Le [facility] TRANSFUSION SERVICE REPORT 2020-07-07 18:02:59 Peter Duarte [facility] - - SCAN [facility] POCT-GLUCOSE METER 2020-07-07 11:45:00 Le [facility] AMMONIA 2020-07-07 11:18:00 Leonarda Jones [facility] POCT-GLUCOSE METER 2020-07-07 06:39:00 Ari Stephenson [facility] MAGNESIUM 2020-07-07 04:49:00 Mikayla Mireles [facility] COMPREHENSIVE METABOLIC 2020-07-07 04:49:00 Mikayla Mireles [facility] PHOSPHORUS 2020-07-07 04:49:00 Latasha Michael [facility] CBC W/PLT COUNT & AUTO 2020-07-07 04:49:[address] [facility] POCT-GLUCOSE METER 2020-07-07 00:34:00 Le [facility] PREPARE LEUKO-REDUCED RBC 2020-07-06 23:54:00 Leonarda Jones [facility] TRANSFUSION SERVICE REPORT 2020-07-06 18:02:59 Peter Duarte [facility] - - SCAN [facility] EEG 2-12 HR CONTINUOUS 2020-07-06 17:48:00 Le [facility] - MONITORING WITH VIDEO Medical Ce nter XR ABDOMEN / KUB 1 VIEW 2020-07-06 16:33:00 Le [facility] POCT-GLUCOSE METER 2020-07-06 12:09:00 Le [facility] EEG 12-26 HR CONTINUOUS 2020-07-06 07:00:00 Le [facility] - MONITORING WITH VIDEO Medical Ce nter POCT-GLUCOSE METER 2020-07-06 05:45:00 Le [facility] PTH, INTACT 2020-07-06 05:40:00 Radha Ta [facility] VITAMIN D, 25-HYDROXY 2020-07-06 05:40:00 Radha Ta [facility] MAGNESIUM 2020-07-06 05:40:00 Mikayla Mireles [facility] COMPREHENSIVE METABOLIC 2020-07-06 05:40:00 Mikayla Mireles [facility] PHOSPHORUS 2020-07-06 05:40:00 FernandaLatasha ye [facility] PREALBUMIN 2020-07-06 05:40:00 Le [facility] TRIGLYCERIDES 2020-07-06 05:40:00 Le [facility] CBC W/PLT COUNT & AUTO 2020-07-06 05:40:00 Mikayla Mireles [facility] DIFFERENTIAL [facility] POCT-GLUCOSE METER 2020-07-05 22:00:00 Le [facility] TRANSFUSE LEUKO-REDUCED 2020-07-05 13:45:28 Leonarda Jones [facility] RED BLOOD CELLS [facility] HEMODIALYSIS INPATIENT 2020-07-05 12:43:30 France Goins [facility] REPORT OF PROCEDURE - 2020-07-05 10:45:16 Provider, Peter [facility] ENDOSCOPY SCAN Scanning [facility] POCT-GLUCOSE METER 2020-07-05 10:35:00 Le [facility] POCT-GLUCOSE METER 2020-07-05 06:12:00 Le [facility] EEG 12-26 HR CONTINUOUS 2020-07-05 06:09:00 Chato Uriarte [facility] - MONITORING WITH VIDEO [facility] VISCOSITY, SERUM 2020-07-05 04:59:00 Leonarda Jones [facility] PROTEIN ELECTROPHORESIS, 2020-07-05 04:59:00 Leonarda Jones [facility] MAGNESIUM 2020-07-05 04:59:00 Mikayla Mireles [facility] COMPREHENSIVE METABOLIC 2020-07-05 04:59:00 Mikayla Mireles [facility] PHOSPHORUS 2020-07-05 04:59:00 Latasha Michael liborio [facility] HEPATITIS B SURFACE 2020-07-05 04:59:00 Laura Somers CH, I [facility] IMMUNOFIXATION 2020-07-05 04:59:00 Doug Jessy [facility] - ELECTROPHORESIS (VERÓNICA) [facility] W/[facility]T COUNT & AUTO 2020-07-05 04:59:[address] [facility] POCT-GLUCOSE METER 2020-07-05 00:37:00 Ari Stephenson [facility] TRANSFUSION SERVICE REPORT 2020-07-04 18:01:47 Provider, Peter [facility] - - SCAN Scanning [facility] VANCOMYCIN LEVEL, RANDOM 2020-07-04 17:38:00 Al Seay [facility] TROPONIN I 2020-07-04 05:07:00 Ronak Sage [facility] MAGNESIUM 2020-07-04 05:07:00 Mikayla Mireles [facility] COMPREHENSIVE METABOLIC 2020-07-04 05:07:[address] [facility] PANEL [facility] PHOSPHORUS 2020-07-04 05:07:00 Latasha Michael [facility] CBC W/PLT COUNT & AUTO 2020-07-04 05:07:[address] [facility] VENOUS DOPPLER LEGS 2020-07-04 01:13:00 Ari Stephenson [facility] URINE CULTURE 2020-07-04 01:01:00 Lon Lynn [facility] URINALYSIS W/ REFLEX URINE 2020-07-04 01:01:00 Angus Lynn [facility] ECG 12-LEAD 2020-07-03 23:11:19 Unknown, Hl7 [facility] ECG 12-LEAD 2020-07-03 23:11:00 Unknown, Hl7 [facility] RESPIRATORY PANEL [facility] 2020-07-03 22:43:[address] [facility] RAPID INFLUENZA A&B SCREEN 2020-07-03 22:43:00 Mikayla Mireles [facility] TROPONIN I 2020-07-03 22:39:00 Jordin Jebjeanette [facility] TSH 2020-07-03 22:39:00 MirelesMikayla [facility] T4 2020-07-03 22:39:00 Mikayla Mireles [facility] MAGNESIUM 2020-07-03 22:39:00 Mikayla Mireles [facility] COMPREHENSIVE METABOLIC 2020-07-03 22:39:00 Mikayla Mireles [facility] C-REACTIVE PROTEIN 2020-07-03 22:39:00 MirelesMikayla [facility] IRON, TIBC, % SAT. 2020-07-03 22:39:00 Mikayla Mireles [facility] F[facility] 2020-07-03 22:39:00 Chi Mikayla Aguilar [facility] FIBRINOGEN 2020-07-03 22:39:00 ChiMikayla [facility] D-DIMER 2020-07-03 22:39:00 Chi Mikayla [facility] CBC W/PLT COUNT & AUTO 2020-07-03 22:39:00 Chi Mikayla Hyderashmi Mercado [facility] ABORH, MANUAL 2020-07-03 20:44:00 So Salcedo [facility] URINALYSIS W/ REFLEX URINE 2020-07-03 20:29:00 Jordin [facility] CULTURE [facility] TROPONIN I 2020-07-03 20:02:00 Jordin [facility] B-TYPE NATRIURETIC FACTOR 2020-07-03 20:02:00 Ronak Sage [facility] (BNP) [facility] [place] COMPREHENSIVE METABOLIC 2020-07-03 20:02:00 Jordin [facility] URIC ACID 2020-07-03 20:02:00 Chi Mikayla [facility] TYPE AND SCREEN, AUTOMATED 2020-07-03 20:02:00 [facility] ANTIBODY SCREEN 2020-07-03 20:02:00 [facility] ECG 12-LEAD 2020-07-03 19:47:15 [facility] BLOOD CULTURE 2020-07-03 18:31:00 [facility] SARS-COV2/RT-PCR ([facility] & 2020-07-03 18:31:00 [facility] - REF LABS) [facility] LACTIC ACID, VENOUS 2020-07-03 18:31:00 [facility] PT/APTT 2020-07-03 18:31:00 [facility] BLOOD GAS, VENOUS 2020-07-03 18:31:00 [facility] CBC W/PLT COUNT & AUTO 2020-07-03 18:31:[address] [facility] [address] BRAIN WITHOUT IV 2020-07-03 18:09:00 [facility] XR CHEST 1 VIEW 2020-07-03 17:35:00 [facility] REPORT OF PROCEDURE - 2020-07-03 00:00:00 Provider, Default [facility] - ENDOSCOPY SCAN Scanning [facility] SARS-COV2/RT-PCR ([facility] & 2020-05-11 16:14:00 [facility] REF LABS) [facility] Plan of Care Planned Activity Planned Date Details Comments Source Future Scheduled 2020-06-07 INFLUENZA VACCINE (#1) [facility] 00:[facility]:00 [code = INFLUENZA Medical Ce nter VACCINE (#1)] Future Scheduled 2019-10-07 Medicare IPPE (WELCOME [facility] - Test 00:00:00 TO MEDICARE) [code = Medical Center Medicare IPPE (WELCOME TO MEDICARE)] Future Scheduled 2010 PNEUMOCOCCAL 65+ YRS [facility] 00:00:00 (1 of 1 - Medical Center [id number] PCV13) [code = PNEUMOCOCCAL 65+ YRS (1 of 1 - [id number] PCV13)] Future Scheduled [address] [facility] - [facility] 00:[facility] breast (procedure) [code = 696256358] Future Scheduled [address] - Test 00[facility]00:00 [facility] colon (procedure) [code = 092357512] Results Test Description Test Time Test Comments Results Result Comments Source COVID19 ([facility]) 2020-08-06 20:59:00 Test Item Value Reference Range Interpretation Comme nts COVID19 ([facility]) (test Negative Negative The Aptima SARS-CoV-2 Assay code = 5048008) combines the technologies of TMA (Threshing Machine Operator Mediated Amplification) and DKA (Dual Kinetic Assay). It is a qualitative test used for the de tection of nucleic acids from SARS -CoV-2 extracted from nasopharyngeal swabs, throat swabs, nasal and nasal washes. Negative test results ma y occur in spite of active virus in fection. This test was developed b y [employer] and its analytical performance characteristics have been validated by the [facility] purs uant to CLIA regulations. Th is test has EUA authorization f rom the Food and Drug Administration (Hologic Aptima SARS-CoV-2 Assa y on the Start). This test was p erformed at:[facility] Reference LaboratoryDrSkyla J tuan [address] [place], [place] [address]PZCU # [id number] [facility]-Glucose [id number] 17:24:00 Test Item Value Reference Range Interpretation Comments POC-Glucose Meter (test 94 mg/dL 70-110 : TE STED AT [facility] code = 1531) [address] [facility], 770 30: Financial Analyst Accountant/Techni kathryn ID = [id number] for BRINA GONZALEZ Lab Interpretation (test Normal code = 72848-1) [facility]-GLUCOSE [id number] 17:24:00 Test Item Value Reference Range Interpretation Comments POC-GLUCOSE METER 94 mg/dL 70-110 : TESTED A T [facility] 6720 (BEAKER) (test code = CARLO Lin [facility], 1538) [address]: Financial Analyst Accountant/Techni kathryn ID = [id number] for BRINA GONZALEZ SARS-CoV2/RT-PCR ([facility] & Ref Labs)2020-08-05 13:24:00 Test Item Value Reference Range Interpretation Comments SARS-COV2/RT-PCR (test See external report Not Detected, code = 06665-1) for linked test Negative, See external report for linked test SARS-COV-2 PERFORMING [facility] [place] LAB (test code = 76522-7) [facility] REF LABS)2020-08-05 13:24:00 Test Item Value Reference Range Interpretation Comments SARS-COV2/RT-PCR (test See external report Not Detected, code = 5877346) for linked test Negative, See external report for linked test SARS-COV-2 PERFORMING [facility] LAB (test code = 1845660) POCT-GLUCOSE [id number] 13:18:00 Test Item Value Reference Range Interpretation Comments POC-GLUCOSE METER 84 mg/dL 70-110 : [facility] (DOM) (test code = CARLO Lin [facility], 1538) [address]: Financial Analyst Accountant/Techni kathryn ID = [id number] for BRINA GONZALEZ HEMODIALYSIS [id number] 12:38:32Venancio Dominique RN 08/05/2020 12:39 PMHD procedure started via right tunneled cvc with bfr of 400.Net UF: 3000 CCTolerated HD 3.5 hrs Lab Results Component Value [...] Lab Results Component Value Date HEPBSAG Nonreactive 08/04/2020[facility] lambda light chains, serum 2020-08-05 11:31:00 Test Item Value Reference Interpretation Comments Range [place] Lt 3868.1 mg/L 3.3-19.4 H SAMPLE SLIGHTLY HEMOLYZED. Chain,Free (test code = 29222-1) Lambda Lt 3 mg/L 5.7-26.3 L SAMPLE SLIGHTLY HEMOLYZED. Chain,Free (test code = 21162-1) [place]/Lambda,Free >1000.00 0.26-1.65 H SAMPLE SLI GHTLY HEMOLYZED. (test code = Free kappa/mckeon da ratio in 20200105) serum of normal individuals is 0.26-1.65. Excessproductio n of free kappa or lambda chains can alter this rati o. Monoclonalfree light chains are foun d in serum of patients wit h multiple myeloma,Waldens trom's macroglobulinem ia, mu-heavy chain disease, primary amyloid osis,light chain depositio n disease, monoclonal gamm opathy of undeterminedsig nificance, and lymphoproli ferative disorders. Ori urement of free lightchain concentration i n serum is useful for diag nosis, prognosis, monitoringdisea se activity and following r esponse to therapy of thes e disorders. HERBIE (test code = Performing Lab HERBIE) EZ [facility] [address] [place] [address] Sunni Zuñiga MD, PhD, BHARAT Lab Interpretation Abnormal (test code = 51632-1) [facility] core antibody, [id number] 09:10:00 Test Item Value Reference Range Interpretation Comments Hep B C IgM (test code = Nonreactive Nonreactive 44758-5) HERBIE (test code = HERBIE) Financial Analyst Accountant ID - SHERRY Trotter Lab Interpretation (test Normal code = 19400-6) [facility]AT[facility]IS B CORE ANTIBODY, [id number] 09:10:00 Test Item Value Reference Range Interpretation Comments HEPATITIS B CORE IGM ANTIBODY Nonreactive Nonreactive (BEAKER) (test code = 645) Financial Analyst Accountant JEANETTE POWELL LPOCT-GLUCOSE [id number] 07:28:00 Test Item Value Reference Range Interpretation Comments POC-GLUCOSE METER 121 mg/dL 70-110 H : TESTED A T [facility] 6720 (BEAKER) (test code = CARLO Lin [place], 1538) [address]: Financial Analyst Accountant/Techni kathryn ID = [id number] for DI BRINA VILLAREAL SARS-COV2/RT-PCR ([facility] & REF LABS)2020-08-05 06:10:00 Test Item Value Reference Range Interpretation Comments SARS-COV2/RT-PCR See external Not Detected, (test code = report for Negative, See 4368126) linked test external report for linked test SARS-COV-2 Performing lab: PERFORMING LAB [facility] (test code = [facility], 2802 4153211) Yandel peña [place], [place] [address]; Tel Basic Metabolic [id number] 05:32:00 Test Item Value Reference Range Interpretation Comments Sodium (test code = 125 meq/L 136-145 L 2951-2) Potassium (test code = 4.5 meq/L 3.5-5.1 2823-3) Chloride (test code = 99 meq/L 98-107 2075-0) CO2 (test code = 20 meq/L 22-29 L 2028-9) BUN (test code = 53 mg/dL 7-21 H 3094-0) Creatinine (test code 4.55 mg/dL 0.57-1.25 H = 2160-0) Glucose (test code = 156 mg/dL 70-105 H 2345-7) Calcium (test code = 7.9 mg/dL 8.4-10.2 L 34946-1) EGFR (test code = 11 mL/min/1.73 [place] [address]-0) NOT ACCURATE CREATININE CLEARANCE IN PREDICTING GLOMERULAR FILTRATION RATE . ESTIMATED GFR I S NOT APPLICABLE FOR DIALYSIS PATIENTS. HERBIE (test code = HERBIE) Financial Analyst Accountant ID - [id number] Lab Interpretation Abnormal (test code = 43814-2) [facility] METABOLIC [id number] 05:32:00 Test Item Value Reference Range Interpretation Comments SODIUM (BEAKER) 125 meq/L 136-145 L (test code = 381) POTASSIUM (BEAKER) 4.5 meq/L 3.5-5.1 (test code = 379) CHLORIDE (BEAKER) 99 meq/L 98-107 (test code = 382) CO2 (BEAKER) (test 20 meq/L 22-29 L code = 355) BLOOD UREA NITROGEN 53 mg/dL 7-21 H (BEAKER) (test code = 354) CREATININE (BEAKER) 4.55 mg/dL 0.57-1.25 H (test code = 358) GLUCOSE RANDOM 156 mg/dL 70-105 H (BEAKER) (test code = 652) CALCIUM (BEAKER) 7.9 mg/dL 8.4-10.2 L (test code = 697) EGFR (BEAKER) (test 11 mL/min/1.73 ESTIMA NICOLE GFR IS code = 1092) sq m NOT ACCURATE CREATININE CLEARANCE IN PREDICTING GLOMERULAR FILTRATION RATE . ESTIMATED GFR I S NOT APPLICABLE FOR DIALYSIS PATIEN TS. Financial Analyst Accountant ID - [id number] 05:28:00 Test Item Value Reference Range Interpretation Comments Magnesium (test code = 2.1 mg/dL 1.6-2.6 65053-8) HERBIE (test code = HERBIE) Financial Analyst Accountant ID - EDASI Lab Interpretation (test Normal code = 67531-4) [facility]00 Test Item Value Reference Range Interpretation Comments Phosphorus (test code = 2.5 mg/dL 2.3-4.7 2777-1) HERBIE (test code = HERBIE) Financial Analyst Accountant ID - EDASI Lab Interpretation (test Normal code = 28936-4) [facility] 05:28:00 Test Item Value Reference Range Interpretation Comments MAGNESIUM (BEAKER) (test code = 2.1 mg/dL 1.6-2.6 627) Financial Analyst Accountant ID - [id number] 05:28:00 Test Item Value Reference Range Interpretation Comments PHOSPHORUS (BEAKER) (test code = 2.5 mg/dL 2.3-4.7 604) Financial Analyst Accountant ID - EDASICBC with platelet count + automated [id number] 04:55:00 Test Item Value Reference Range Interpretation Comments WBC (test code = 6690-2) 5.6 3.5- 10.5 K/L RBC (test code = 789-8) 2.73 3.93- 5.22 M/L L MCHC (test code = 786-4) 31.3 32.2- 35.5 GM/DL L Hematocrit (test code = 4544-3) 25.2 % 34.1-44.9 L MCV (test code = 787-2) 92.3 fL 79.4-94.8 MCH (test code = 785-6) 28.9 pg 25.6-32.2 RDW (test code = 788-0) 17.0 % 11.7-14.4 H Platelets (test code = 777-3) 353 150- 450 K/CU MM MPV (test code = 07935-1) 9.6 fL 9.4-12.3 nRBC (test code = 413) 0 0- 0 /100 WBC % Neutros (test code = 429) 71 % % Lymphs (test code = 430) 27 % % Monos (test code = 431) 2 % % Eos (test code = 432) 0 % % Baso (test code = 437) 0 % # Neutros (test code = 670) 3.93 1.56- 6.13 K/L # Lymphs (test code = 414) 1.48 1.18- 3.74 K/L # Monos (test code = 415) 0.11 0.24- 0.36 K/L L # Eos (test code = 416) 0.00 0.04- 0.36 K/L L # Baso (test code = 417) 0.01 0.01- 0.08 K/L Immature Granulocytes-Relative 0 % 0-1 (test code = 2801) Lab Interpretation (test code = Abnormal 99289-5) [facility] W/PLT COUNT & AUTO [id number] 04:55:00 Test Item Value Reference Range Interpretation Comments WHITE BLOOD CELL COUNT (BEAKER) 5.6 K/ L 3.5-10.5 (test code = 775) RED BLOOD CELL COUNT (BEAKER) 2.73 M/ L 3.93-5.22 L (test code = 761) HEMOGLOBIN (BEAKER) (test code = 7.9 GM/DL 11.2-15.7 L 410) HEMATOCRIT (BEAKER) (test code = 25.2 % 34.1-44.9 L 411) MEAN CORPUSCULAR VOLUME (BEAKER) 92.3 fL 79.4-94.8 (test code = 753) MEAN CORPUSCULAR HEMOGLOBIN 28.9 pg 25.6-32.2 (BEAKER) (test code = 751) MEAN CORPUSCULAR HEMOGLOBIN CONC 31.3 GM/DL 32.2-35.5 L (BEAKER) (test code = 752) RED CELL DISTRIBUTION WIDTH 17.0 % 11.7-14.4 H (BEAKER) (test code = 412) PLATELET COUNT (BEAKER) (test 353 K/CU MM 150-450 code = 756) MEAN PLATELET VOLUME (BEAKER) 9.6 fL 9.4-12.3 (test code = 754) NUCLEATED RED BLOOD CELLS 0 /100 WBC 0-0 (BEAKER) (test code = 413) NEUTROPHILS RELATIVE PERCENT 71 % (BEAKER) (test code = 429) LYMPHOCYTES RELATIVE PERCENT 27 % (BEAKER) (test code = 430) MONOCYTES RELATIVE PERCENT 2 % (BEAKER) (test code = 431) EOSINOPHILS RELATIVE PERCENT 0 % (BEAKER) (test code = 432) BASOPHILS RELATIVE PERCENT 0 % (BEAKER) (test code = 437) NEUTROPHILS ABSOLUTE COUNT 3.93 K/ L 1.56-6.13 (BEAKER) (test code = 670) LYMPHOCYTES ABSOLUTE COUNT 1.48 K/ L 1.18-3.74 (BEAKER) (test code = 414) MONOCYTES ABSOLUTE COUNT (BEAKER) 0.11 K/ L 0.24-0.36 L (test code = 415) EOSINOPHILS ABSOLUTE COUNT 0.00 K/ L 0.04-0.36 L (BEAKER) (test code = 416) BASOPHILS ABSOLUTE COUNT (BEAKER) 0.01 K/ L 0.01-0.08 (test code = 417) IMMATURE GRANULOCYTES-RELATIVE 0 % 0-1 PERCENT (BEAKER) (test code = 2801) POCT-GLUCOSE [id number] 21:41:00 Test Item Value Reference Range Interpretation Comments POC-GLUCOSE METER 123 mg/dL 70-110 H : Notified RN/MD: TESTED (BEAKER) (test code AT [facility] [address] = 1538) [facility], [facility] 30: Financial Analyst Accountant/Techni kathryn ID = [id number] for ASH BRANDNO Hepatitis B [id number] 19:32:00 Test Item Value Reference Range Interpretation Comments Hep B Core Total Ab (test Nonreactive Nonreactive code = 99219-8) Hep B S Ab (test code = <8.0 <8.0 mIU/mL 72730-1) HBsAg Screen (test code = Nonreactive Nonreactive 5195-3) HERBIE (test code = HERBIE) Financial Analyst Accountant ID - DB Lab Interpretation (test Normal code = 76754-0) [facility] [id number] 19:32:00 Test Item Value Reference Range Interpretation Comments HEPATITIS B CORE TOTAL ANTIBODY Nonreactive Nonreactive (BEAKER) (test code = 497) HEPATITIS B SURFACE ANTIBODY < mIU/mL <8.0 (BEAKER) (test code = 647) HEPATITIS B SURFACE ANTIGEN (2) Nonreactive Nonreactive (BEAKER) (test code = 2585) Financial Analyst Accountant ID - DBPOCT-GLUCOSE [id number] 16:56:00 Test Item Value Reference Range Interpretation Comments POC-GLUCOSE METER 89 mg/dL 70-110 : TESTED A T [facility] 6720 (BEAKER) ([facility] = [facility], 1538) [address]: Financial Analyst Accountant/Techni kathryn ID = [id number] for Allen De Jesus POCT-GLUCOSE [id number] 09:04:00 Test Item Value Reference Range Interpretation Comments POC-GLUCOSE METER 105 mg/dL 70-110 : TESTED A T [facility] 6720 (BEAKER) (test code = [facility] Delia [facility], 1538) [address]: Financial Analyst Accountant/Techni kathryn ID = [id number] for Ba sunni [facility] Manual [id number] 06:59:00 Test Item Value Reference Range Interpretation Comments % Neutros (test code = 87 % 281) % Lymphs (test code = 9 % 2817) % Monos (test code = 3 % 281) % Bands (test code = 1 % 0-10 2825) # Neutros (test code = 3.83 K/ul 1.56-6.13 2830) # Lymphs (test code = 0.40 K/ul 1.18-3.74 L 2831) # Monos (test code = 0.13 K/uL 0.24-0.36 L 2832) # Bands (test code = 0.04 K/uL 0-0.8 2840) Total Counted (test code 100 = 1351) Platelet Morphology (test Normal code = 486) Smudge Cells (test code = Present 1371) Anisocytosis (test code = 1+ few 961) Platelet Conc (test code Adequate = 3438) HERBIE (test code = HERBIE) Financial Analyst Accountant ID - Jacque Burgess comments: Slide comments: Lab Interpretation (test Abnormal code = 44471-3) [facility] W/PLT COUNT & AUTO [id number] 06:59:00 Test Item Value Reference Range Interpretation Comments WHITE BLOOD CELL COUNT (BEAKER) 4.4 K/ L 3.5-10.5 (test code = 775) RED BLOOD CELL COUNT (BEAKER) 2.81 M/ L 3.93-5.22 L (test code = 761) HEMOGLOBIN (BEAKER) (test code = 8.0 GM/DL 11.2-15.7 L 410) HEMATOCRIT (BEAKER) (test code = 25.8 % 34.1-44.9 L 411) MEAN CORPUSCULAR VOLUME (BEAKER) 91.8 fL 79.4-94.8 (test code = 753) MEAN CORPUSCULAR HEMOGLOBIN 28.5 pg 25.6-32.2 (BEAKER) (test code = 751) MEAN CORPUSCULAR HEMOGLOBIN CONC 31.0 GM/DL 32.2-35.5 L (BEAKER) (test code = 752) RED CELL DISTRIBUTION WIDTH 16.8 % 11.7-14.4 H (BEAKER) (test code = 412) PLATELET COUNT (BEAKER) (test 322 K/CU MM 150-450 code = 756) MEAN PLATELET VOLUME (BEAKER) 9.2 fL 9.4-12.3 L (test code = 754) NUCLEATED RED BLOOD CELLS 0 /100 WBC 0-0 (BEAKER) (test code = 413) (CELLAVISION MANUAL DIFF)2020-08-04 06:59:00 Test Item Value Reference Range Interpretation Comments NEUTROPHILS - REL 87 % (CELLAVISION)(BEAKER) (test code = 2816) LYMPHOCYTES - REL 9 % (CELLAVISION)(BEAKER) (test code = 2817) MONOCYTES - REL 3 % (CELLAVISION)(BEAKER) (test code = 2818) BANDS - REL (CELLAVISION)(BEAKER) 1 % 0-10 (test code = 2826) NEUTROPHILS - ABS 3.83 K/ul 1.56-6.13 (CELLAVISION)(BEAKER) (test code = 2830) LYMPHOCYTES - ABS 0.40 K/ul 1.18-3.74 L (CELLAVISION)(BEAKER) (test code = 2831) MONOCYTES - ABS 0.13 K/uL 0.24-0.36 L (CELLAVISION)(BEAKER) (test code = 2832) BANDS - ABS (CELLAVISION)(BEAKER) 0.04 K/uL 0.00-0.80 (test code = 2840) TOTAL COUNTED (BEAKER) (test code = 100 1351) PLT MORPHOLOGY (BEAKER) (test code Normal = 486) SMUDGE CELLS (BEAKER) (test code = Present 1371) ANISOCYTOSIS (BEAKER) (test code = 1+ few 961) PLATELET CONCENTRATION Adequate (CELLAVISION)(BEAKER) (test code = 3438) Financial Analyst Accountant ID - Jacque Jenifer comments: Slide comments:BASIC METABOLIC PANEL 2020-08-04 05:27:00 Test Item Value Reference Range Interpretation Comments SODIUM (BEAKER) 128 meq/L 136-145 L (test code = 381) POTASSIUM (BEAKER) 4.5 meq/L 3.5-5.1 (test code = 379) CHLORIDE (BEAKER) 102 meq/L 98-107 (test code = 382) CO2 (BEAKER) (test 23 meq/L 22-29 code = 355) BLOOD UREA NITROGEN 32 mg/dL 7-21 H (BEAKER) (test code = 354) CREATININE (BEAKER) 3.34 mg/dL 0.57-1.25 H (test code = 358) GLUCOSE RANDOM 156 mg/dL 70-105 H (BEAKER) (test code = 652) CALCIUM (BEAKER) 8.1 mg/dL 8.4-10.2 L (test code = 697) EGFR (BEAKER) (test 16 mL/min/1.73 ESTIMA NICOLE GFR IS code = 1092) sq m NOT ACCURATE CREATININE CLEARANCE IN PREDICTING GLOMERULAR FILTRATION RATE . ESTIMATED GFR I S NOT APPLICABLE FOR DIALYSIS PATIEN TS. Financial Analyst Accountant ID - PALAK [id number] 05:01:00 Test Item Value Reference Range Interpretation Comments MAGNESIUM (BEAKER) (test code = 2.0 mg/dL 1.6-2.6 627) Financial Analyst Accountant ID - PALAK [id number] 05:01:00 Test Item Value Reference Range Interpretation Comments PHOSPHORUS (BEAKER) (test code = 2.0 mg/dL 2.3-4.7 L 604) Financial Analyst Accountant ID - PALAK MPOCT-GLUCOSE [id number] 21:10:00 Test Item Value Reference Range Interpretation Comments POC-GLUCOSE METER 144 mg/dL 70-110 H : Notified RN/MD: TESTED (BEAKER) (test code AT [facility] [address] [facility] = 1538) [facility], 770 30: Financial Analyst Accountant/Techni kathryn ID = [id number] for ASH BRANDON POCT-GLUCOSE [id number] 17:56:00 Test Item Value Reference Range Interpretation Comments POC-GLUCOSE METER 99 mg/dL 70-110 : TESTED A T [facility] 6720 (BEAKER) (test code = CARLO Lin [facility], 1538) [address]: Financial Analyst Accountant/Techni kathryn ID = [id number] for JAEL CARIAS POCT-GLUCOSE [id number] 08:48:00 Test Item Value Reference Range Interpretation Comments POC-GLUCOSE METER 84 mg/dL 70-110 : TESTED A T [facility] 6720 (BEAKER) (test code = S[facility] Delia [facility], 1538) [address]: Financial Analyst Accountant/Techni kathryn ID = [id number] for HEMAL FORD CROWDER BASIC METABOLIC [id number] 04:38:00 Test Item Value Reference Range Interpretation Comments SODIUM (BEAKER) 126 meq/L 136-145 L (test code = 381) POTASSIUM (BEAKER) 4.3 meq/L 3.5-5.1 (test code = 379) CHLORIDE (BEAKER) 96 meq/L 98-107 L (test code = 382) CO2 (BEAKER) (test 25 meq/L -29 code = 355) BLOOD UREA NITROGEN 49 mg/dL 7-21 H (BEAKER) (test code = 354) CREATININE (BEAKER) 4.62 mg/dL 0.57-1.25 H (test code = 358) GLUCOSE RANDOM 121 mg/dL 70-105 H (BEAKER) (test code = 652) CALCIUM (BEAKER) 7.3 mg/dL 8.4-10.2 L (test code = 697) EGFR (BEAKER) (test 11 mL/min/1.73 ESTIMA NICOLE GFR IS code = 1092) sq m NOT ACCURATE CREATININE CLEARANCE IN PREDICTING GLOMERULAR FILTRATION RATE . ESTIMATED GFR I S NOT APPLICABLE FOR DIALYSIS PATIEN TS. Financial Analyst Accountant ID - [id number] 04:34:00 Test Item Value Reference Range Interpretation Comments MAGNESIUM (BEAKER) (test code = 2.0 mg/dL 1.6-2.6 627) Financial Analyst Accountant ID - [id number] 04:34:00 Test Item Value Reference Range Interpretation Comments PHOSPHORUS (BEAKER) (test code = 2.9 mg/dL 2.3-4.7 604) Financial Analyst Accountant ID - EDASICBC W/PLT COUNT & AUTO [id number] 04:07:00 Test Item Value Reference Range Interpretation Comments WHITE BLOOD CELL COUNT (BEAKER) 3.6 K/ L 3.5-10.5 (test code = 775) RED BLOOD CELL COUNT (BEAKER) 2.87 M/ L 3.93-5.22 L (test code = 761) HEMOGLOBIN (BEAKER) (test code = 8.3 GM/DL 11.2-15.7 L 410) HEMATOCRIT (BEAKER) (test code = 26.0 % 34.1-44.9 L 411) MEAN CORPUSCULAR VOLUME (BEAKER) 90.6 fL 79.4-94.8 (test code = 753) MEAN CORPUSCULAR HEMOGLOBIN 28.9 pg 25.6-32.2 (BEAKER) (test code = 751) MEAN CORPUSCULAR HEMOGLOBIN CONC 31.9 GM/DL 32.2-35.5 L (BEAKER) (test code = 752) RED CELL DISTRIBUTION WIDTH 17.2 % 11.7-14.4 H (BEAKER) (test code = 412) PLATELET COUNT (BEAKER) (test 279 K/CU MM 150-450 code = 756) MEAN PLATELET VOLUME (BEAKER) 8.7 fL 9.4-12.3 L (test code = 754) NUCLEATED RED BLOOD CELLS 0 /100 WBC 0-0 (BEAKER) (test code = 413) NEUTROPHILS RELATIVE PERCENT 62 % (BEAKER) (test code = 429) LYMPHOCYTES RELATIVE PERCENT 32 % (BEAKER) (test code = 430) MONOCYTES RELATIVE PERCENT 3 % (BEAKER) (test code = 431) EOSINOPHILS RELATIVE PERCENT 2 % (BEAKER) (test code = 432) BASOPHILS RELATIVE PERCENT 0 % (BEAKER) (test code = 437) NEUTROPHILS ABSOLUTE COUNT 2.26 K/ L 1.56-6.13 (BEAKER) (test code = 670) LYMPHOCYTES ABSOLUTE COUNT 1.16 K/ L 1.18-3.74 L (BEAKER) (test code = 414) MONOCYTES ABSOLUTE COUNT (BEAKER) 0.12 K/ L 0.24-0.36 L (test code = 415) EOSINOPHILS ABSOLUTE COUNT 0.08 K/ L 0.04-0.36 (BEAKER) (test code = 416) BASOPHILS ABSOLUTE COUNT (BEAKER) 0.01 K/ L 0.01-0.08 (test code = 417) IMMATURE GRANULOCYTES-RELATIVE 0 % 0-1 PERCENT (BEAKER) (test code = 2801) POCT-GLUCOSE [id number] 22:16:00 Test Item Value Reference Range Interpretation Comments POC-GLUCOSE METER 107 mg/dL 70-110 : TESTED A T [facility] 6720 (BEAKER) (test code = [facility], 153) [address]: Financial Analyst Accountant/Techni kathryn ID = [id number] for RANJITH FAIRCHILDELL POCT-GLUCOSE [id number] 18:11:00 Test Item Value Reference Range Interpretation Comments POC-GLUCOSE METER 99 mg/dL 70-110 : TESTED A T [facility] 6720 (BEAKER) (test code = [facility], 153) [address]: Financial Analyst Accountant/Techni kathryn ID = [id number] for GERALD BURNHAMIA POCT-GLUCOSE [id number] 17:37:00 Test Item Value Reference Range Interpretation Comments POC-GLUCOSE METER 96 mg/dL 70-110 : TESTED A T [facility] 6720 (BEAKER) (test code = [facility], 153) [address]: Financial Analyst Accountant/Techni kathryn ID = [id number] for DEMAR GAN POCT-GLUCOSE [id number] 12:34:00 Test Item Value Reference Range Interpretation Comments POC-GLUCOSE METER 105 mg/dL 70-110 : TESTED A T [facility] 6720 (BEAKER) (test code = [facility], 1538) [address]: Financial Analyst Accountant/Techni kathryn ID = [id number] for DEMAR RAMSEY POCT-GLUCOSE [id number] 08:26:00 Test Item Value Reference Range Interpretation Comments POC-GLUCOSE METER 126 mg/dL 70-110 H : TESTED A T [facility] 6720 (BEAKER) (test code = [facility], 1538) [address]: Financial Analyst Accountant/Techni kathryn ID = [id number] for GABRIELLA PINEDA POCT-GLUCOSE [id number] 07:02:00 Test Item Value Reference Range Interpretation Comments POC-GLUCOSE METER 115 mg/dL 70-110 H : TESTED A T [facility] 6720 (BEAKER) (test code = [facility], 1538) [address]: Financial Analyst Accountant/Techni kathryn ID = [id number] for HARMEET PRAJAPATI Immunoglobulin G (IgG)2020-08-02 05:27:00 Test Item Value Reference Range Interpretation Comments IgG (test code = 2465-3) 6982 mg/dL 540-1822 H HERBIE (test code = HERBIE) Financial Analyst Accountant ID Shani POWELL L Lab Interpretation (test Abnormal code = 14387-6) [facility]2020-08-02 05:27:00 Test Item Value Reference Range Interpretation Comments IMMUNOGLOBULIN G (IGG) (BEAKER) 6982 mg/dL 540-1,822 H (test code = 427) Financial Analyst Accountant ID - SHERRY CARLSON - SHERRY LBASIC METABOLIC [id number] 04:45:00 Test Item Value Reference Range Interpretation Comments SODIUM (BEAKER) 124 meq/L 136-145 L (test code = 381) POTASSIUM (BEAKER) 4.0 meq/L 3.5-5.1 Specimen slightly (test code = 379) hemolyzed CHLORIDE (BEAKER) 96 meq/L 98-107 L (test code = 382) CO2 (BEAKER) (test 26 meq/L 22-29 code = 355) BLOOD UREA NITROGEN 31 mg/dL 7-21 H (BEAKER) (test code = 354) CREATININE (BEAKER) 3.23 mg/dL 0.57-1.25 H Specimen slightly (test code = 358) hemolyzed GLUCOSE RANDOM 112 mg/dL 70-105 H (BEAKER) (test code = 652) CALCIUM (BEAKER) 7.0 mg/dL 8.4-10.2 L (test code = 697) EGFR (BEAKER) (test 17 mL/min/1.73 ESTIMA NICOLE GFR IS code = 1092) sq m NOT ACCURATE CREATININE CLEARANCE IN PREDICTING GLOMERULAR FILTRATION RATE . ESTIMATED GFR I S NOT APPLICABLE FOR DIALYSIS PATIEN TS. Financial Analyst Accountant ID - PIMARGARITA [id number] 04:36:00 Test Item Value Reference Range Interpretation Comments MAGNESIUM (BEAKER) 1.8 mg/dL 1.6-2.6 Specimen slightly (test code = 627) hemolyzed Financial Analyst Accountant ID - SHERRY [id number] 04:36:00 Test Item Value Reference Range Interpretation Comments PHOSPHORUS (BEAKER) 2.7 mg/dL 2.3-4.7 Specimen slightly (test code = 604) hemolyzed Financial Analyst Accountant ID - SHERRY LCBC W/PLT COUNT & AUTO [id number] 03:48:00 Test Item Value Reference Range Interpretation Comments WHITE BLOOD CELL COUNT (BEAKER) 3.0 K/ L 3.5-10.5 L (test code = 775) RED BLOOD CELL COUNT (BEAKER) 2.88 M/ L 3.93-5.22 L (test code = 761) HEMOGLOBIN (BEAKER) (test code = 8.5 GM/DL 11.2-15.7 L 410) HEMATOCRIT (BEAKER) (test code = 26.1 % 34.1-44.9 L 411) MEAN CORPUSCULAR VOLUME (BEAKER) 90.6 fL 79.4-94.8 (test code = 753) MEAN CORPUSCULAR HEMOGLOBIN 29.5 pg 25.6-32.2 (BEAKER) (test code = 751) MEAN CORPUSCULAR HEMOGLOBIN CONC 32.6 GM/DL 32.2-35.5 (BEAKER) (test code = 752) RED CELL DISTRIBUTION WIDTH 16.6 % 11.7-14.4 H (BEAKER) (test code = 412) PLATELET COUNT (BEAKER) (test 275 K/CU MM 150-450 code = 756) MEAN PLATELET VOLUME (BEAKER) 9.3 fL 9.4-12.3 L (test code = 754) NUCLEATED RED BLOOD CELLS 0 /100 WBC 0-0 (BEAKER) (test code = 413) NEUTROPHILS RELATIVE PERCENT 66 % (BEAKER) (test code = 429) LYMPHOCYTES RELATIVE PERCENT 27 % (BEAKER) (test code = 430) MONOCYTES RELATIVE PERCENT 4 % (BEAKER) (test code = 431) EOSINOPHILS RELATIVE PERCENT 2 % (BEAKER) (test code = 432) BASOPHILS RELATIVE PERCENT 0 % (BEAKER) (test code = 437) NEUTROPHILS ABSOLUTE COUNT 1.95 K/ L 1.56-6.13 (BEAKER) (test code = 670) LYMPHOCYTES ABSOLUTE COUNT 0.81 K/ L 1.18-3.74 L (BEAKER) (test code = 414) MONOCYTES ABSOLUTE COUNT (BEAKER) 0.11 K/ L 0.24-0.36 L (test code = 415) EOSINOPHILS ABSOLUTE COUNT 0.06 K/ L 0.04-0.36 (BEAKER) (test code = 416) BASOPHILS ABSOLUTE COUNT (BEAKER) 0.01 K/ L 0.01-0.08 (test code = 417) IMMATURE GRANULOCYTES-RELATIVE 1 % 0-1 PERCENT (BEAKER) (test code = 2801) HEMODIALYSIS [id number] 23:56:24James Silverio RN 08/01/2020 11:58 PMTolerated and completed 2 hours and 0minutes. No distress noted, asymptomatic. Denies any discomfort and pain.UF fluid removed 2 liters.Packed cvc port with heparin 5000 units/ml and secured line with blue caps, gauze and tape. Report given to Primary Nurse patient stable. Latest lab result:Lab Results Component Value Date WBC 2.8 (L) 08/01/2020 HGB 8.4 (L)08/01/2020 HCT 26.5 (L) 08/01/2020 MCV 92.0 08/01/2020 PLT 258 08/01/2020 Lab Results Component Value Date GLUCOSE 108 (H) 08/01/2020 CALCIUM 7.2 (L) 08/01/2020 NA 122 (L) 08/01/2020 K 5.0 08/01/2020 CO2 25 08/01/2020 CL 92 (L) 08/01/2020 BUN 57 (H) 08/01/2020 CREATININE 4.55 (H) 08/01/2020 James FINKN, RN II7S6- Adult [id number] 355 [id number] 17:32:00 Test Item Value Reference Range Interpretation Comments PHOSPHORUS (BEAKER) (test code = 4.4 mg/dL 2.3-4.7 604) Financial Analyst Accountant ID - DBOperator ID - DBPOCT-GLUCOSE [id number] 17:23:00 Test Item Value Reference Range Interpretation Comments POC-GLUCOSE METER 114 mg/dL 70-110 H : TESTED A T [facility] 6720 (BEAKER) (test code = [place], 1538) [address]: Financial Analyst Accountant/Techni kathryn ID = [id number] for GABRIELLA PINEDA BASIC METABOLIC [id number] 16:24:00 Test Item Value Reference Range Interpretation Comments SODIUM (BEAKER) 122 meq/L 136-145 L (test code = 381) POTASSIUM (BEAKER) 5.0 meq/L 3.5-5.1 (test code = 379) CHLORIDE (BEAKER) 92 meq/L 98-107 L (test code = 382) CO2 (BEAKER) (test 25 meq/L 22-29 code = 355) BLOOD UREA NITROGEN 57 mg/dL 7-21 H (BEAKER) (test code = 354) CREATININE (BEAKER) 4.55 mg/dL 0.57-1.25 H (test code = 358) GLUCOSE RANDOM 108 mg/dL 70-105 H (BEAKER) (test code = 652) CALCIUM (BEAKER) 7.2 mg/dL 8.4-10.2 L (test code = 697) EGFR (BEAKER) (test 11 mL/min/1.73 ESTIMA NICOLE GFR IS code = 1092) sq m NOT ACCURATE CREATININE CLEARANCE IN PREDICTING GLOMERULAR FILTRATION RATE . ESTIMATED GFR I S NOT APPLICABLE FOR DIALYSIS PATIEN TS. Financial Analyst Accountant ID - BSPOCT-GLUCOSE [id number] 12:58:00 Test Item Value Reference Range Interpretation Comments POC-GLUCOSE METER 112 mg/dL 70-110 H : TESTED A T [facility] (BEAKER) (test code = CARLO Lin [place], 1538) [id number]: Financial Analyst Accountant/Techni kathryn ID = [id number] for GABRIELLA PINEDA POCT-GLUCOSE [id number] 07:53:00 Test Item Value Reference Range Interpretation Comments POC-GLUCOSE METER 108 mg/dL 70-110 : TESTED A T [facility] (BEAKER) (test code = CARLO Lin [place], 1538) [id number]: Financial Analyst Accountant/Techni kathryn ID = [id number] for GABRIELLA PINEDA Hepatic function [id number] 05:29:00 Test Item Value Reference Range Interpretation Comments Protein, Total (test code 10.9 6.0- 8.3 gm/dL H = 2885-2) Albumin (test code = 2.2 g/dL 3.5-5 L 95385-7) Total Bilirubin (test code 0.3 mg/dL 0.2-1.2 = 1975-2) Bilirubin, Direct (test 0.2 mg/dL 0.1-0.5 code = 1967-7) Alkaline Phosphatase (test 58 U/L 40-150 code = 6768-6) AST (test code = 1920-8) 15 U/L 5-34 ALT (test code = 1742-6) 6 U/L 6-55 HERBIE (test code = HERBIE) Financial Analyst Accountant ID - SHERRY L Lab Interpretation (test Abnormal code = 25764-8) [id number] Test Item Value Reference Range Interpretation Comments MAGNESIUM (BEAKER) (test code = 1.7 mg/dL 1.6-2.6 627) Financial Analyst Accountant ID - SHERRY [id number] 05:29:00 Test Item Value Reference Range Interpretation Comments PHOSPHORUS (BEAKER) (test code = 1.9 mg/dL 2.3-4.7 L 604) Financial Analyst Accountant ID - SHERRY LHEPATIC FUNCTION [id number] 05:29:00 Test Item Value Reference Range Interpretation Comments TOTAL PROTEIN (BEAKER) (test code 10.9 gm/dL 6.0-8.3 H = 770) ALBUMIN (BEAKER) (test code = 2.2 g/dL 3.5-5.0 L 1145) BILIRUBIN TOTAL (BEAKER) (test 0.3 mg/dL 0.2-1.2 code = 377) BILIRUBIN DIRECT (BEAKER) (test 0.2 mg/dL 0.1-0.5 code = 706) ALKALINE PHOSPHATASE (BEAKER) 58 U/L 40-150 (test code = 346) AST (SGOT) (BEAKER) (test code = 15 U/L 5-34 353) ALT (SGPT) (BEAKER) (test code = 6 U/L 6-55 347) Financial Analyst Accountant ID - PIAYA LBASIC METABOLIC [id number] 05:29:00 Test Item Value Reference Range Interpretation Comments SODIUM (BEAKER) 122 meq/L 136-145 L (test code = 381) POTASSIUM (BEAKER) 4.6 meq/L 3.5-5.1 (test code = 379) CHLORIDE (BEAKER) 94 meq/L 98-107 L (test code = 382) CO2 (BEAKER) (test 24 meq/L 22-29 code = 355) BLOOD UREA NITROGEN 49 mg/dL 7-21 H (BEAKER) (test code = 354) CREATININE (BEAKER) 4.03 mg/dL 0.57-1.25 H (test code = 358) GLUCOSE RANDOM 114 mg/dL 70-105 H (BEAKER) (test code = 652) CALCIUM (BEAKER) 7.0 mg/dL 8.4-10.2 L (test code = 697) EGFR (BEAKER) (test 13 mL/min/1.73 ESTIMA NICOLE GFR IS code = 1092) sq m NOT ACCURATE CREATININE CLEARANCE IN PREDICTING GLOMERULAR FILTRATION RATE . ESTIMATED GFR I S NOT APPLICABLE FOR DIALYSIS PATIEN TS. Financial Analyst Accountant ID - PIAYA LCBC W/PLT COUNT & AUTO [id number] 04:03:00 Test Item Value Reference Range Interpretation Comments WHITE BLOOD CELL COUNT (BEAKER) 2.8 K/ L 3.5-10.5 L (test code = 775) RED BLOOD CELL COUNT (BEAKER) 2.88 M/ L 3.93-5.22 L (test code = 761) HEMOGLOBIN (BEAKER) (test code = 8.4 GM/DL 11.2-15.7 L 410) HEMATOCRIT (BEAKER) (test code = 26.5 % 34.1-44.9 L 411) MEAN CORPUSCULAR VOLUME (BEAKER) 92.0 fL 79.4-94.8 (test code = 753) MEAN CORPUSCULAR HEMOGLOBIN 29.2 pg 25.6-32.2 (BEAKER) (test code = 751) MEAN CORPUSCULAR HEMOGLOBIN CONC 31.7 GM/DL 32.2-35.5 L (BEAKER) (test code = 752) RED CELL DISTRIBUTION WIDTH 16.6 % 11.7-14.4 H (BEAKER) (test code = 412) PLATELET COUNT (BEAKER) (test 258 K/CU MM 150-450 code = 756) MEAN PLATELET VOLUME (BEAKER) 9.0 fL 9.4-12.3 L (test code = 754) NUCLEATED RED BLOOD CELLS 0 /100 WBC 0-0 (BEAKER) (test code = 413) NEUTROPHILS RELATIVE PERCENT 58 % (BEAKER) (test code = 429) LYMPHOCYTES RELATIVE PERCENT 34 % (BEAKER) (test code = 430) MONOCYTES RELATIVE PERCENT 3 % (BEAKER) (test code = 431) EOSINOPHILS RELATIVE PERCENT 3 % (BEAKER) (test code = 432) BASOPHILS RELATIVE PERCENT 0 % (BEAKER) (test code = 437) NEUTROPHILS ABSOLUTE COUNT 1.61 K/ L 1.56-6.13 (BEAKER) (test code = 670) LYMPHOCYTES ABSOLUTE COUNT 0.95 K/ L 1.18-3.74 L (BEAKER) (test code = 414) MONOCYTES ABSOLUTE COUNT (BEAKER) 0.09 K/ L 0.24-0.36 L (test code = 415) EOSINOPHILS ABSOLUTE COUNT 0.09 K/ L 0.04-0.36 (BEAKER) (test code = 416) BASOPHILS ABSOLUTE COUNT (BEAKER) 0.01 K/ L 0.01-0.08 (test code = 417) IMMATURE GRANULOCYTES-RELATIVE 0 % 0-1 PERCENT (BEAKER) (test code = 2801) Prepare Leuko-Red [id number] 23:54:00 Test Item Value Reference Range Interpretation Comments CROSSMATCH (test code = 2264) COMPATIBLE Unit ABO (test code = B Pos 3591754) UNIT NUMBER (test code = [id number] 934-0) Status (test code = 3468402) TX_TIMEINCHART Blood Bank Product (test code RED BLOOD CELLS = 2263) PRODUCT CODE (test code = N0406P50 933-2) [facility] [id number] 21:36:00 Test Item Value Reference Range Interpretation Comments POC-GLUCOSE METER 107 mg/dL 70-110 : Notified RN/MD: TESTED (BEAKER) (test code AT [facility] [address] = 1538) [place], [address]: Financial Analyst Accountant/Techni kathryn ID = [id number] for ASH BRANDON POCT-GLUCOSE [id number] 11:38:00 Test Item Value Reference Range Interpretation Comments POC-GLUCOSE METER 115 mg/dL 70-110 H : TESTED A T [facility] [address] (BEAKER) (test code = CARLO Lin [facility], 1538) [address]: Financial Analyst Accountant/Techni kathryn ID = [id number] for JAEL MARX BASIC METABOLIC [id number] 08:25:00 Test Item Value Reference Range Interpretation Comments SODIUM (BEAKER) 125 meq/L 136-145 L (test code = 381) POTASSIUM (BEAKER) 4.3 meq/L 3.5-5.1 (test code = 379) CHLORIDE (BEAKER) 96 meq/L 98-107 L (test code = 382) CO2 (BEAKER) (test 27 meq/L 22-29 code = 355) BLOOD UREA NITROGEN 28 mg/dL 7-21 H (BEAKER) (test code = 354) CREATININE (BEAKER) 3.10 mg/dL 0.57-1.25 H (test code = 358) GLUCOSE RANDOM 114 mg/dL 70-105 H (BEAKER) (test code = 652) CALCIUM (BEAKER) 7.0 mg/dL 8.4-10.2 L (test code = 697) EGFR (BEAKER) (test 18 mL/min/1.73 ESTIMA NICOLE GFR IS code = 1092) sq m NOT ACCURATE CREATININE CLEARANCE IN PREDICTING GLOMERULAR FILTRATION RATE . ESTIMATED GFR I S NOT APPLICABLE FOR DIALYSIS PATIEN TS. Financial Analyst Accountant ID - MJ [id number] 08:13:00 Test Item Value Reference Range Interpretation Comments MAGNESIUM (BEAKER) (test code = 1.8 mg/dL 1.6-2.6 627) Financial Analyst Accountant ID - MJ [id number] 08:13:00 Test Item Value Reference Range Interpretation Comments PHOSPHORUS (BEAKER) (test code = 2.6 mg/dL 2.3-4.7 604) Financial Analyst Accountant ID - MJ CPOCT-GLUCOSE [id number] 07:50:00 Test Item Value Reference Range Interpretation Comments POC-GLUCOSE METER 112 mg/dL 70-110 H : TESTED A T [facility] 6720 (BEAKER) (test code = [facility], 153) [address]: Financial Analyst Accountant/Techni kathryn ID = [id number] for Arianna Acosta POCT-GLUCOSE [id number] 07:41:00 Test Item Value Reference Range Interpretation Comments POC-GLUCOSE METER 103 mg/dL 70-110 : TESTED A T [facility] 6720 (BEAKER) (test code = [facility], 1538) [address]: Financial Analyst Accountant/Techni kathryn ID = [id number] for SA NCHEZ, JAEL CBC W/PLT COUNT & AUTO [id number] 06:43:00 Test Item Value Reference Range Interpretation Comments WHITE BLOOD CELL COUNT (BEAKER) 3.0 K/ L 3.5-10.5 L (test code = 775) RED BLOOD CELL COUNT (BEAKER) 3.08 M/ L 3.93-5.22 L (test code = 761) HEMOGLOBIN (BEAKER) (test code = 8.8 GM/DL 11.2-15.7 L 410) HEMATOCRIT (BEAKER) (test code = 28.2 % 34.1-44.9 L 411) MEAN CORPUSCULAR VOLUME (BEAKER) 91.6 fL 79.4-94.8 (test code = 753) MEAN CORPUSCULAR HEMOGLOBIN 28.6 pg 25.6-32.2 (BEAKER) (test code = 751) MEAN CORPUSCULAR HEMOGLOBIN CONC 31.2 GM/DL 32.2-35.5 L (BEAKER) (test code = 752) RED CELL DISTRIBUTION WIDTH 16.8 % 11.7-14.4 H (BEAKER) (test code = 412) PLATELET COUNT (BEAKER) (test 272 K/CU MM 150-450 code = 756) MEAN PLATELET VOLUME (BEAKER) 8.9 fL 9.4-12.3 L (test code = 754) NUCLEATED RED BLOOD CELLS 0 /100 WBC 0-0 (BEAKER) (test code = 413) NEUTROPHILS RELATIVE PERCENT 59 % (BEAKER) (test code = 429) LYMPHOCYTES RELATIVE PERCENT 33 % (BEAKER) (test code = 430) MONOCYTES RELATIVE PERCENT 4 % (BEAKER) (test code = 431) EOSINOPHILS RELATIVE PERCENT 3 % (BEAKER) (test code = 432) BASOPHILS RELATIVE PERCENT 0 % (BEAKER) (test code = 437) NEUTROPHILS ABSOLUTE COUNT 1.77 K/ L 1.56-6.13 (BEAKER) (test code = 670) LYMPHOCYTES ABSOLUTE COUNT 1.00 K/ L 1.18-3.74 L (BEAKER) (test code = 414) MONOCYTES ABSOLUTE COUNT (BEAKER) 0.12 K/ L 0.24-0.36 L (test code = 415) EOSINOPHILS ABSOLUTE COUNT 0.10 K/ L 0.04-0.36 (BEAKER) (test code = 416) BASOPHILS ABSOLUTE COUNT (BEAKER) 0.01 K/ L 0.01-0.08 (test code = 417) IMMATURE GRANULOCYTES-RELATIVE 0 % 0-1 PERCENT (BEAKER) (test code = 2801) POCT-GLUCOSE [id number] 21:48:00 Test Item Value Reference Range Interpretation Comments POC-GLUCOSE METER 96 mg/dL 70-110 : Notified RN[facility]MD: [facility] (test code = AT [facility] [address] [facility] 1538) [facility], [address]: Financial Analyst Accountant/Techni kathryn ID = [id number] for ASH BRANDON POCT-GLUCOSE [id number] 17:10:00 Test Item Value Reference Range Interpretation Comments POC-GLUCOSE METER 109 mg/dL 70-110 : [facility] T [facility] [address] [facility] (test code = [facility], 1538) [address]: Financial Analyst Accountant/Techni kathryn ID = [id number] for DAVION ZURITAAIRIS POCT-GLUCOSE [id number] 12:25:00 Test Item Value Reference Range Interpretation Comments POC-GLUCOSE METER 91 mg/dL 70-110 : TESTED A T [facility] 6720 ([place]NER) (test code = [facility], 1538) [address]: Financial Analyst Accountant/Techni kathryn ID = [id number] for BRINA GONZALEZ Type and screen, [id number] 09:18:00 Test Item Value Reference Range Interpretation Comments ABO/RH AUTOMATED (BEAKER) (test B POSITIVE code = 2260) Ab Scrn (test code = 890-4) NEGATIVE [facility] [id number] 09:01:00 Test Item Value Reference Range Interpretation Comments POC-GLUCOSE METER 95 mg/dL 70-110 : TESTED A T [facility] 67[address] (BEAKER) (test code = CARLO Delia [facility], 1538) [address]: Financial Analyst Accountant/Techni kathryn ID = [id number] for JAYESH GUTIERREZ Hepatitis B surface [id number] 08:29:00 Test Item Value Reference Range Interpretation Comments HBsAg Screen (test code Nonreactive Nonreactive = 5195-3) HERBIE (test code = HERBIE) Specimen is considered negative for HBsAg. Lab Interpretation (test Normal code = 78848-8) [facility] SURFACE [id number] 08:29:00 Test Item Value Reference Range Interpretation Comments HEPATITIS B SURFACE ANTIGEN (2) Nonreactive Nonreactive (BEAKER) (test code = 2585) Specimen is considered negative for HBsAg.BASIC METABOLIC [id number] 06:35:00 Test Item Value Reference Range Interpretation Comments SODIUM (BEAKER) 124 meq/L 136-145 L (test code = 381) POTASSIUM (BEAKER) 5.1 meq/L 3.5-5.1 (test code = 379) CHLORIDE (BEAKER) 95 meq/L 98-107 L (test code = 382) CO2 (BEAKER) (test 26 meq/L 22-29 code = 355) BLOOD UREA NITROGEN 49 mg/dL 7-21 H (BEAKER) (test code = 354) CREATININE (BEAKER) 4.06 mg/dL 0.57-1.25 H (test code = 358) GLUCOSE RANDOM 123 mg/dL 70-105 H (BEAKER) (test code = 652) CALCIUM (BEAKER) 6.5 mg/dL 8.4-10.2 L (test code = 697) EGFR (BEAKER) (test 13 mL/min/1.73 ESTIMA NICOLE GFR IS code = 1092) sq m NOT ACCURATE CREATININE CLEARANCE IN PREDICTING GLOMERULAR FILTRATION RATE . ESTIMATED GFR I S NOT APPLICABLE FOR DIALYSIS PATIEN TS. Financial Analyst Accountant ID - [id number] 06:23:00 Test Item Value Reference Range Interpretation Comments MAGNESIUM (BEAKER) (test code = 1.7 mg/dL 1.6-2.6 627) Financial Analyst Accountant ID - [id number] 06:23:00 Test Item Value Reference Range Interpretation Comments PHOSPHORUS (BEAKER) (test code = 2.5 mg/dL 2.3-4.7 604) Financial Analyst Accountant ID - EDASICBC W/PLT COUNT & AUTO [id number] 05:51:00 Test Item Value Reference Range Interpretation Comments WHITE BLOOD CELL COUNT (BEAKER) 4.1 K/ L 3.5-10.5 (test code = 775) RED BLOOD CELL COUNT (BEAKER) 2.41 M/ L 3.93-5.22 L (test code = 761) HEMOGLOBIN (BEAKER) (test code = 6.9 GM/DL 11.2-15.7 L 410) HEMATOCRIT (BEAKER) (test code = 21.9 % 34.1-44.9 L 411) MEAN CORPUSCULAR VOLUME (BEAKER) 90.9 fL 79.4-94.8 (test code = 753) MEAN CORPUSCULAR HEMOGLOBIN 28.6 pg 25.6-32.2 (BEAKER) (test code = 751) MEAN CORPUSCULAR HEMOGLOBIN CONC 31.5 GM/DL 32.2-35.5 L (BEAKER) (test code = 752) RED CELL DISTRIBUTION WIDTH 17.2 % 11.7-14.4 H (BEAKER) (test code = 412) PLATELET COUNT (BEAKER) (test 261 K/CU MM 150-450 code = 756) MEAN PLATELET VOLUME (BEAKER) 9.9 fL 9.4-12.3 (test code = 754) NUCLEATED RED BLOOD CELLS 0 /100 WBC 0-0 (BEAKER) (test code = 413) NEUTROPHILS RELATIVE PERCENT 69 % (BEAKER) (test code = 429) LYMPHOCYTES RELATIVE PERCENT 27 % (BEAKER) (test code = 430) MONOCYTES RELATIVE PERCENT 4 % (BEAKER) (test code = 431) EOSINOPHILS RELATIVE PERCENT 0 % (BEAKER) (test code = 432) BASOPHILS RELATIVE PERCENT 0 % (BEAKER) (test code = 437) NEUTROPHILS ABSOLUTE COUNT 2.80 K/ L 1.56-6.13 (BEAKER) (test code = 670) LYMPHOCYTES ABSOLUTE COUNT 1.09 K/ L 1.18-3.74 L (BEAKER) (test code = 414) MONOCYTES ABSOLUTE COUNT (BEAKER) 0.17 K/ L 0.24-0.36 L (test code = 415) EOSINOPHILS ABSOLUTE COUNT 0.00 K/ L 0.04-0.36 L (BEAKER) (test code = 416) BASOPHILS ABSOLUTE COUNT (BEAKER) 0.01 K/ L 0.01-0.08 (test code = 417) IMMATURE GRANULOCYTES-RELATIVE 0 % 0-1 PERCENT (BEAKER) (test code = 2801) Viscosity, [id number] 01:10:00 Test Item Value Reference Range Interpretation Comments VISCOSITY, SERUM (test 2.9 1.5- 1.9 Relative H code = 9324768) to H2O HERBIE (test code = HERBIE) Performing Lab [facility] [address] [place] [address] Sunni Zuñiga MD, PhD, BHARAT Lab Interpretation Abnormal (test code = 21093-0) [facility] [id number] 22:18:00 Test Item Value Reference Range Interpretation Comments POC-GLUCOSE METER 130 mg/dL 70-110 H : TESTED A T [facility] 67[address] (BEAKER) (test code = [facility], 153) [address]: Financial Analyst Accountant/Techni kathryn ID = [id number] for МАРИНА CRESPO EPHRAIM POCT-GLUCOSE [id number] 17:13:00 Test Item Value Reference Range Interpretation Comments POC-GLUCOSE METER 93 mg/dL 70-110 : TESTED A T [facility] 67[address] (BEAKER) (test code = [facility], 1538) [address]: Financial Analyst Accountant/Techni kathryn ID = [id number] for BRINA GONZALEZ POCT-GLUCOSE [id number] 12:10:00 Test Item Value Reference Range Interpretation Comments POC-GLUCOSE METER 106 mg/dL 70-110 : TESTED A T [facility] 67[address] (BEAKER) (test code = [facility], 153) [address]: Financial Analyst Accountant/Techni kathryn ID = [id number] for DI [place], DAVIONAIRIS POCT-GLUCOSE [id number] 08:10:00 Test Item Value Reference Range Interpretation Comments POC-GLUCOSE METER 111 mg/dL 70-110 H : [facility] (BEAKER) (test code = [place], 1538) [address]: Financial Analyst Accountant/Techni kathryn ID = [id number] for DI [place], ISSAIRIS BASIC METABOLIC [id number] 05:13:00 Test Item Value Reference Range Interpretation Comments SODIUM (BEAKER) 129 meq/L 136-145 L (test code = 381) POTASSIUM (BEAKER) 4.6 meq/L 3.5-5.1 (test code = 379) CHLORIDE (BEAKER) 99 meq/L 98-107 (test code = 382) CO2 (BEAKER) (test 28 meq/L 22-29 code = 355) BLOOD UREA NITROGEN 29 mg/dL 7-21 H (BEAKER) (test code = 354) CREATININE (BEAKER) 3.15 mg/dL 0.57-1.25 H (test code = 358) GLUCOSE RANDOM 94 mg/dL 70-105 (BEAKER) (test code = 652) CALCIUM (BEAKER) 6.9 mg/dL 8.4-10.2 L (test code = 697) EGFR (BEAKER) (test 17 mL/min/1.73 ESTIMA NICOLE GFR IS code = 1092) sq m NOT ACCURATE CREATININE CLEARANCE IN PREDICTING GLOMERULAR FILTRATION RATE . ESTIMATED GFR I S NOT APPLICABLE FOR DIALYSIS PATIEN TS. Financial Analyst Accountant ID - [id number] 05:12:00 Test Item Value Reference Range Interpretation Comments MAGNESIUM (BEAKER) (test code = 1.8 mg/dL 1.6-2.6 627) Financial Analyst Accountant ID - [id number] 05:12:00 Test Item Value Reference Range Interpretation Comments PHOSPHORUS (BEAKER) (test code = 2.6 mg/dL 2.3-4.7 604) Financial Analyst Accountant ID - EDASICBC W/PLT COUNT & AUTO [id number] 04:43:00 Test Item Value Reference Range Interpretation Comments WHITE BLOOD CELL COUNT (BEAKER) 5.7 K/ L 3.5-10.5 (test code = 775) RED BLOOD CELL COUNT (BEAKER) 2.60 M/ L 3.93-5.22 L (test code = 761) HEMOGLOBIN (BEAKER) (test code = 7.2 GM/DL 11.2-15.7 L 410) HEMATOCRIT (BEAKER) (test code = 23.6 % 34.1-44.9 L 411) MEAN CORPUSCULAR VOLUME (BEAKER) 90.8 fL 79.4-94.8 (test code = 753) MEAN CORPUSCULAR HEMOGLOBIN 27.7 pg 25.6-32.2 (BEAKER) (test code = 751) MEAN CORPUSCULAR HEMOGLOBIN CONC 30.5 GM/DL 32.2-35.5 L (BEAKER) (test code = 752) RED CELL DISTRIBUTION WIDTH 17.2 % 11.7-14.4 H (BEAKER) (test code = 412) PLATELET COUNT (BEAKER) (test 242 K/CU MM 150-450 code = 756) MEAN PLATELET VOLUME (BEAKER) 10.6 fL 9.4-12.3 (test code = 754) NUCLEATED RED BLOOD CELLS 0 /100 WBC 0-0 (BEAKER) (test code = 413) NEUTROPHILS RELATIVE PERCENT 67 % (BEAKER) (test code = 429) LYMPHOCYTES RELATIVE PERCENT 28 % (BEAKER) (test code = 430) MONOCYTES RELATIVE PERCENT 4 % (BEAKER) (test code = 431) EOSINOPHILS RELATIVE PERCENT 0 % (BEAKER) (test code = 432) BASOPHILS RELATIVE PERCENT 0 % (BEAKER) (test code = 437) NEUTROPHILS ABSOLUTE COUNT 3.83 K/ L 1.56-6.13 (BEAKER) (test code = 670) LYMPHOCYTES ABSOLUTE COUNT 1.62 K/ L 1.18-3.74 (BEAKER) (test code = 414) MONOCYTES ABSOLUTE COUNT (BEAKER) 0.23 K/ L 0.24-0.36 L (test code = 415) EOSINOPHILS ABSOLUTE COUNT 0.00 K/ L 0.04-0.36 L (BEAKER) (test code = 416) BASOPHILS ABSOLUTE COUNT (BEAKER) 0.00 K/ L 0.01-0.08 L (test code = 417) IMMATURE GRANULOCYTES-RELATIVE 0 % 0-1 PERCENT (BEAKER) (test code = 2801) POCT-GLUCOSE [id number] 22:37:00 Test Item Value Reference Range Interpretation Comments POC-GLUCOSE METER 154 mg/dL 70-110 H : TESTED A T [facility] 6720 (BEAKER) (test code = [facility], 1538) [address]: Financial Analyst Accountant/Techni kathryn ID = [id number] for DREA FAIRCHILD POCT-GLUCOSE [id number] 18:26:00 Test Item Value Reference Range Interpretation Comments POC-GLUCOSE METER 136 mg/dL 70-110 H : TESTED A T [facility] 6720 (BEAKER) (test code = [facility], 1538) [address]: Financial Analyst Accountant/Techni kathryn ID = [id number] for GABRIELLA PINEDA POCT-GLUCOSE [id number] 13:23:00 Test Item Value Reference Range Interpretation Comments POC-GLUCOSE METER 91 mg/dL 70-110 : TESTED A T [facility] 6720 (BEAKER) (test code = [facility], 1538) [address]: Financial Analyst Accountant/Techni kathryn ID = [id number] for GERALD BURNHAMIA BASIC METABOLIC [id number] 05:59:00 Test Item Value Reference Range Interpretation Comments SODIUM (BEAKER) 125 meq/L 136-145 L (test code = 381) POTASSIUM (BEAKER) 5.1 meq/L 3.5-5.1 (test code = 379) CHLORIDE (BEAKER) 96 meq/L 98-107 L (test code = 382) CO2 (BEAKER) (test 26 meq/L 22-29 code = 355) BLOOD UREA NITROGEN 49 mg/dL 7-21 H (BEAKER) (test code = 354) CREATININE (BEAKER) 4.67 mg/dL 0.57-1.25 H (test code = 358) GLUCOSE RANDOM 125 mg/dL 70-105 H (BEAKER) (test code = 652) CALCIUM (BEAKER) 6.2 mg/dL 8.4-10.2 L (test code = 697) EGFR (BEAKER) (test 11 mL/min/1.73 ESTIMA NICOLE GFR IS code = 1092) sq m NOT ACCURATE CREATININE CLEARANCE IN PREDICTING GLOMERULAR FILTRATION RATE . ESTIMATED GFR I S NOT APPLICABLE FOR DIALYSIS PATIEN TS. Financial Analyst Accountant ID - PALAK [id number] 05:01:00 Test Item Value Reference Range Interpretation Comments MAGNESIUM (BEAKER) (test code = 1.7 mg/dL 1.6-2.6 627) Financial Analyst Accountant ID - PALAK [id number] 05:01:00 Test Item Value Reference Range Interpretation Comments PHOSPHORUS (BEAKER) (test code = 2.0 mg/dL 2.3-4.7 L 604) Financial Analyst Accountant ID - PALAK MCBC W/PLT COUNT & AUTO [id number] 04:15:00 Test Item Value Reference Range Interpretation Comments WHITE BLOOD CELL COUNT (BEAKER) 4.2 K/ L 3.5-10.5 (test code = 775) RED BLOOD CELL COUNT (BEAKER) 2.56 M/ L 3.93-5.22 L (test code = 761) HEMOGLOBIN (BEAKER) (test code = 7.1 GM/DL 11.2-15.7 L 410) HEMATOCRIT (BEAKER) (test code = 22.9 % 34.1-44.9 L 411) MEAN CORPUSCULAR VOLUME (BEAKER) 89.5 fL 79.4-94.8 (test code = 753) MEAN CORPUSCULAR HEMOGLOBIN 27.7 pg 25.6-32.2 (BEAKER) (test code = 751) MEAN CORPUSCULAR HEMOGLOBIN CONC 31.0 GM/DL 32.2-35.5 L (BEAKER) (test code = 752) RED CELL DISTRIBUTION WIDTH 17.0 % 11.7-14.4 H (BEAKER) (test code = 412) PLATELET COUNT (BEAKER) (test 170 K/CU MM 150-450 code = 756) MEAN PLATELET VOLUME (BEAKER) 10.6 fL 9.4-12.3 (test code = 754) NUCLEATED RED BLOOD CELLS 0 /100 WBC 0-0 (BEAKER) (test code = 413) NEUTROPHILS RELATIVE PERCENT 77 % (BEAKER) (test code = 429) LYMPHOCYTES RELATIVE PERCENT 20 % (BEAKER) (test code = 430) MONOCYTES RELATIVE PERCENT 3 % (BEAKER) (test code = 431) EOSINOPHILS RELATIVE PERCENT 0 % (BEAKER) (test code = 432) BASOPHILS RELATIVE PERCENT 0 % (BEAKER) (test code = 437) NEUTROPHILS ABSOLUTE COUNT 3.20 K/ L 1.56-6.13 (BEAKER) (test code = 670) LYMPHOCYTES ABSOLUTE COUNT 0.83 K/ L 1.18-3.74 L (BEAKER) (test code = 414) MONOCYTES ABSOLUTE COUNT (BEAKER) 0.11 K/ L 0.24-0.36 L (test code = 415) EOSINOPHILS ABSOLUTE COUNT 0.00 K/ L 0.04-0.36 L (BEAKER) (test code = 416) BASOPHILS ABSOLUTE COUNT (BEAKER) 0.00 K/ L 0.01-0.08 L (test code = 417) IMMATURE GRANULOCYTES-RELATIVE 1 % 0-1 PERCENT (BEAKER) (test code = 2801) SARS-COV2/RT-PCR ([facility])2020-07-28 03:41:00 Test Item Value Reference Range Interpretation Comments SARS-COV2/RT-PCR (test Negative Not Detected, Negative, code = 8854308) See external report for linked test SARS-COV-2 PERFORMING LAB [facility] (test code = 9091309) Negative result for this test determines that SARS-CoV-2 RNA was not present in the specimen above the Limit of Detection (LOD). However, Negative results do not preclude SARS-CoV-2 infection and should not be used as the sole basis for treatment or patient management decisions. Negative results mustbe combined with clinical observations, patient history, and epidemiological information. A false negative result may occur if a specimen is improperly collected, transported or handled. A false negative result should be considered if patient's recent exposures or clinical presentation indicate that COVID-19 (SARS-CoV-2) is likely and diagnostic tests for other causes of illness are negative. Re-testing should be considered in cases of suspected false negatives.The limit of detection for this assay is 800 copies/mL.This SARS CoV-2 test is a real-time RT-PCR test intended for the qualitative detection of nucleic acid from SARS-CoV-2 in a nasopharyngeal swab specimen collected from individuals susp ected of COVID-19 by their healthcare provider.This test has not been Food and Drug Administration (FDA) cleared or approved. This is a modified version of an approved Emergency Use Authorization (EUA) and is in the process of review by the FDA. Once authorized by the FDA, the issued EUA will be effective until the declaration that circumstances exist justifying the authorization of the emergency use of in vitro diagnostic tests for detection and/or diagnosis of COVID-19 is terminated under Section 564(b)(2) of the Act or the EUA is revoked under Section 564(g) of the Act.Fact Sheet for Healthcare Providers:https://www.[employer]/sites/default/files/product/documents/Fact_Shee o_AH_Jdttapyhh_Vqyi_KGKV-EyS-0.pdfFact Sheet for Healthcare Patients:https://www.[employer]/sites/default/files/product/ documents/Rmdw_Tpuwy_Zgavpltc_Acgz_CHBM-XaG-3.pdfPerforming Laboratory:[place] [address], [place] [address]WHIM-MOVUNBZ METER 2020-07-27 22:30:00 Test Item Value Reference Range Interpretation Comments POC-GLUCOSE METER 127 mg/dL 70-110 H : TESTED A T [facility] 6720 (BEAKER) (test code = [facility], 153) [address]: Financial Analyst Accountant/Techni kathryn ID = [id number] for TORRES LL, OSHANELL POCT-GLUCOSE [id number] 17:37:00 Test Item Value Reference Range Interpretation Comments POC-GLUCOSE METER 172 mg/dL 70-110 H : TESTED A T [facility] 6720 (BEAKER) (test code = [facility], 153) [address]: Financial Analyst Accountant/Techni kathryn ID = [id number] for MAYNOR SUAREZ GABRIELLA POCT-GLUCOSE [id number] 11:40:00 Test Item Value Reference Range Interpretation Comments POC-GLUCOSE METER 100 mg/dL 70-110 : TESTED A T [facility] 6720 (BEAKER) (test code = [facility], 153) 40267: Financial Analyst Accountant/Techni kathryn ID = [id number] for EMMA DHILLON POCT-GLUCOSE [id number] 08:32:00 Test Item Value Reference Range Interpretation Comments POC-GLUCOSE METER 111 mg/dL 70-110 H : TESTED A T [facility] 6720 (BEAKER) (test code = [facility], 153) 78029: Financial Analyst Accountant/Techni kathryn ID = [id number] for EMMA DHILLON [id number] 05:19:00 Test Item Value Reference Range Interpretation Comments PHOSPHORUS (BEAKER) (test code = 1.4 mg/dL 2.3-4.7 LL 604) Financial Analyst Accountant ID - EDASIBASIC METABOLIC [id number] 04:59:00 Test Item Value Reference Range Interpretation Comments SODIUM (BEAKER) 128 meq/L 136-145 L (test code = 381) POTASSIUM (BEAKER) 4.4 meq/L 3.5-5.1 (test code = 379) CHLORIDE (BEAKER) 98 meq/L 98-107 (test code = 382) CO2 (BEAKER) (test 28 meq/L 22-29 code = 355) BLOOD UREA NITROGEN 29 mg/dL 7-21 H (BEAKER) (test code = 354) CREATININE (BEAKER) 3.54 mg/dL 0.57-1.25 H (test code = 358) GLUCOSE RANDOM 114 mg/dL 70-105 H (BEAKER) (test code = 652) CALCIUM (BEAKER) 6.7 mg/dL 8.4-10.2 L (test code = 697) EGFR (BEAKER) (test 15 mL/min/1.73 ESTIMA NICOLE GFR IS code = 1092) sq m NOT ACCURATE CREATININE CLEARANCE IN PREDICTING GLOMERULAR FILTRATION RATE . ESTIMATED GFR I S NOT APPLICABLE FOR DIALYSIS PATIEN TS. Financial Analyst Accountant ID - [id number] 04:55:00 Test Item Value Reference Range Interpretation Comments MAGNESIUM (BEAKER) (test code = 1.6 mg/dL 1.6-2.6 627) Financial Analyst Accountant ID - EDASICBC W/PLT COUNT & AUTO [id number] 04:12:00 Test Item Value Reference Range Interpretation Comments WHITE BLOOD CELL COUNT (BEAKER) 3.8 K/ L 3.5-10.5 (test code = 775) RED BLOOD CELL COUNT (BEAKER) 2.81 M/ L 3.93-5.22 L (test code = 761) HEMOGLOBIN (BEAKER) (test code = 8.0 GM/DL 11.2-15.7 L 410) HEMATOCRIT (BEAKER) (test code = 25.1 % 34.1-44.9 L 411) MEAN CORPUSCULAR VOLUME (BEAKER) 89.3 fL 79.4-94.8 (test code = 753) MEAN CORPUSCULAR HEMOGLOBIN 28.5 pg 25.6-32.2 (BEAKER) (test code = 751) MEAN CORPUSCULAR HEMOGLOBIN CONC 31.9 GM/DL 32.2-35.5 L (BEAKER) (test code = 752) RED CELL DISTRIBUTION WIDTH 16.9 % 11.7-14.4 H (BEAKER) (test code = 412) PLATELET COUNT (BEAKER) (test 140 K/CU MM 150-450 L code = 756) MEAN PLATELET VOLUME (BEAKER) 10.6 fL 9.4-12.3 (test code = 754) NUCLEATED RED BLOOD CELLS 0 /100 WBC 0-0 (BEAKER) (test code = 413) NEUTROPHILS RELATIVE PERCENT 66 % (BEAKER) (test code = 429) LYMPHOCYTES RELATIVE PERCENT 27 % (BEAKER) (test code = 430) MONOCYTES RELATIVE PERCENT 3 % (BEAKER) (test code = 431) EOSINOPHILS RELATIVE PERCENT 3 % (BEAKER) (test code = 432) BASOPHILS RELATIVE PERCENT 0 % (BEAKER) (test code = 437) NEUTROPHILS ABSOLUTE COUNT 2.52 K/ L 1.56-6.13 (BEAKER) (test code = 670) LYMPHOCYTES ABSOLUTE COUNT 1.03 K/ L 1.18-3.74 L (BEAKER) (test code = 414) MONOCYTES ABSOLUTE COUNT (BEAKER) 0.13 K/ L 0.24-0.36 L (test code = 415) EOSINOPHILS ABSOLUTE COUNT 0.12 K/ L 0.04-0.36 (BEAKER) (test code = 416) BASOPHILS ABSOLUTE COUNT (BEAKER) 0.01 K/ L 0.01-0.08 (test code = 417) IMMATURE GRANULOCYTES-RELATIVE 0 % 0-1 PERCENT (BEAKER) (test code = 2801) POCT-GLUCOSE [id number] 21:50:00 Test Item Value Reference Range Interpretation Comments POC-GLUCOSE METER 108 mg/dL 70-110 : Notified RN/: TESTED (BEAKER) (test code AT [facility] 6720 LON = 1538) [facility], [facility] 30: Financial Analyst Accountant/Techni kathryn ID = [id number] for ASH BRANDON POCT-GLUCOSE [id number] 17:01:00 Test Item Value Reference Range Interpretation Comments POC-GLUCOSE METER 92 mg/dL 70-110 : [facility]ED [facility] (BEAKER) (test code = CARLO Lin [facility], 1538) [address]: Financial Analyst Accountant/Techni kathryn ID = [id number] for SANC HEZ, JAEL POCT-GLUCOSE [id number] 12:07:00 Test Item Value Reference Range Interpretation Comments POC-GLUCOSE METER 117 mg/dL 70-110 H : TESTED A T [facility] 6720 (BEAKER) (test code = CARLO Lin [facility], 153) [address]: Financial Analyst Accountant/Techni kathryn ID = [id number] for EMMA RSHALL (V), YASEMIN HEMODIALYSIS [id number] 12:00:00Yasemin Pedraza RN 07/27/2020 10:17 AMLab Results Component Value Date WBC 4.7 07/26/2020 [...] Date HEPBSAG Nonreactive 07/05/2020 HD ended 30 minute s early after 3 hours due to increasing venous pressures. Net UF -2.5L. VSS. Patient very agitated, confused during treatment, turning to right side, frequently occluding catheter. Sitter with patient all of the time but patient still very restless. Charge nurse notified who min turn notified Dr Mcmahon. Patient tolerated treatment fairly well other than chronic confusion. Yasemin Pedraza RNCHI [facility] [id number] 08:19:00 Test Item Value Reference Range Interpretation Comments POC-GLUCOSE METER 112 mg/dL 70-110 H : TESTED A T [facility] 6720 (BEAKER) (test code = CARLO Lin [facility], 1538) [address]: Financial Analyst Accountant/Techni kathryn ID = [id number] for SA NCHEZ, JAEL [id number] 06:19:00 Test Item Value Reference Range Interpretation Comments PHOSPHORUS (BEAKER) 1.4 mg/dL 2.3-4.7 LL Specimen slightly (test code = 604) hemolyzed Financial Analyst Accountant ID - SHERRY LBASIC METABOLIC [id number] 06:14:00 Test Item Value Reference Range Interpretation Comments SODIUM (BEAKER) 123 meq/L 136-145 L (test code = 381) POTASSIUM (BEAKER) 4.5 meq/L 3.5-5.1 Specimen slightly (test code = 379) hemolyzed CHLORIDE (BEAKER) 94 meq/L 98-107 L (test code = 382) CO2 (BEAKER) (test 26 meq/L 22-29 code = 355) BLOOD UREA NITROGEN 48 mg/dL 7-21 H (BEAKER) (test code = 354) CREATININE (BEAKER) 4.88 mg/dL 0.57-1.25 H Specimen slightly (test code = 358) hemolyzed GLUCOSE RANDOM 114 mg/dL 70-105 H (BEAKER) (test code = 652) CALCIUM (BEAKER) 7.0 mg/dL 8.4-10.2 L (test code = 697) EGFR (BEAKER) (test 11 mL/min/1.73 ESTIMA NICOLE GFR IS code = 1092) sq m NOT ACCURATE CREATININE CLEARANCE IN PREDICTING GLOMERULAR FILTRATION RATE . ESTIMATED GFR I S NOT APPLICABLE FOR DIALYSIS PATIEN TS. Financial Analyst Accountant ID - SHERRY [id number] 06:13:00 Test Item Value Reference Range Interpretation Comments MAGNESIUM (BEAKER) 1.6 mg/dL 1.6-2.6 Specimen slightly (test code = 627) hemolyzed Financial Analyst Accountant ID - SHERRY LCBC W/PLT COUNT & AUTO [id number] 05:46:00 Test Item Value Reference Range Interpretation Comments WHITE BLOOD CELL COUNT (BEAKER) 4.7 K/ L 3.5-10.5 (test code = 775) RED BLOOD CELL COUNT (BEAKER) 2.81 M/ L 3.93-5.22 L (test code = 761) HEMOGLOBIN (BEAKER) (test code = 8.1 GM/DL 11.2-15.7 L 410) HEMATOCRIT (BEAKER) (test code = 24.9 % 34.1-44.9 L 411) MEAN CORPUSCULAR VOLUME (BEAKER) 88.6 fL 79.4-94.8 (test code = 753) MEAN CORPUSCULAR HEMOGLOBIN 28.8 pg 25.6-32.2 (BEAKER) (test code = 751) MEAN CORPUSCULAR HEMOGLOBIN CONC 32.5 GM/DL 32.2-35.5 (BEAKER) (test code = 752) RED CELL DISTRIBUTION WIDTH 17.2 % 11.7-14.4 H (BEAKER) (test code = 412) PLATELET COUNT (BEAKER) (test 141 K/CU MM 150-450 L code = 756) MEAN PLATELET VOLUME (BEAKER) 12.0 fL 9.4-12.3 (test code = 754) NUCLEATED RED BLOOD CELLS 0 /100 WBC 0-0 (BEAKER) (test code = 413) NEUTROPHILS RELATIVE PERCENT 70 % (BEAKER) (test code = 429) LYMPHOCYTES RELATIVE PERCENT 24 % (BEAKER) (test code = 430) MONOCYTES RELATIVE PERCENT 4 % (BEAKER) (test code = 431) EOSINOPHILS RELATIVE PERCENT 2 % (BEAKER) (test code = 432) BASOPHILS RELATIVE PERCENT 0 % (BEAKER) (test code = 437) NEUTROPHILS ABSOLUTE COUNT 3.25 K/ L 1.56-6.13 (BEAKER) (test code = 670) LYMPHOCYTES ABSOLUTE COUNT 1.12 K/ L 1.18-3.74 L (BEAKER) (test code = 414) MONOCYTES ABSOLUTE COUNT (BEAKER) 0.17 K/ L 0.24-0.36 L (test code = 415) EOSINOPHILS ABSOLUTE COUNT 0.08 K/ L 0.04-0.36 (BEAKER) (test code = 416) BASOPHILS ABSOLUTE COUNT (BEAKER) 0.01 K/ L 0.01-0.08 (test code = 417) IMMATURE GRANULOCYTES-RELATIVE 0 % 0-1 PERCENT (BEAKER) (test code = 2801) POCT-GLUCOSE [id number] 21:31:00 Test Item Value Reference Range Interpretation Comments POC-GLUCOSE METER 108 mg/dL 70-110 : TESTED A T [facility] 6720 (BEAKER) (test code = [place], 1538) [address]: Financial Analyst Accountant/Techni kathryn ID = [id number] for Wi lliams, Otelia POCT-GLUCOSE [id number] 17:09:00 Test Item Value Reference Range Interpretation Comments POC-GLUCOSE METER 111 mg/dL 70-110 H : TESTED A T [facility] 6720 (BEAKER) (test code = [facility], 1538) [address]: Financial Analyst Accountant/Techni kathryn ID = [id number] for OR KEV CONNORS POCT-GLUCOSE [id number] 12:18:00 Test Item Value Reference Range Interpretation Comments POC-GLUCOSE METER 113 mg/dL 70-110 H : TESTED A T [facility] 6720 (BEAKER) (test code = [facility], 1538) [address]: Financial Analyst Accountant/Techni kathryn ID = [id number] for OR PHESonya, KEV Antibody [id number] 11:27:00 Test Item Value Reference Range Interpretation Comments Ab Scrn (test code = 890-4) [facility] [id number] 10:36:00 Test Item Value Reference Range Interpretation Comments ABO Grouping (test code = 2588) B Rh Factor (test code = 2589) POS [facility] [id number] 08:10:00 Test Item Value Reference Range Interpretation Comments POC-GLUCOSE METER 96 mg/dL 70-110 : TESTED A T [facility] 6720 (BEAKER) (test code = [facility], 1538) [address]: Financial Analyst Accountant/Techni kathryn ID = [id number] for ORPH KEV ALVAREZ IMMUNOGLOBULIN G (IGG)2020-07-25 06:59:00 Test Item Value Reference Range Interpretation Comments IMMUNOGLOBULIN G (IGG) (BEAKER) 7189 mg/dL 540-1,822 H (test code = 427) Financial Analyst Accountant ID - DBOperator ID - DBBASIC METABOLIC [id number] 05:53:00 Test Item Value Reference Range Interpretation Comments SODIUM (BEAKER) 128 meq/L 136-145 L (test code = 381) POTASSIUM (BEAKER) 4.0 meq/L 3.5-5.1 (test code = 379) CHLORIDE (BEAKER) 96 meq/L 98-107 L (test code = 382) CO2 (BEAKER) (test 26 meq/L 22-29 code = 355) BLOOD UREA NITROGEN 30 mg/dL 7-21 H (BEAKER) (test code = 354) CREATININE (BEAKER) 3.59 mg/dL 0.57-1.25 H (test code = 358) GLUCOSE RANDOM 109 mg/dL 70-105 H (BEAKER) (test code = 652) CALCIUM (BEAKER) 6.5 mg/dL 8.4-10.2 L (test code = 697) EGFR (BEAKER) (test 15 mL/min/1.73 ESTIMA NICOLE GFR IS code = 1092) sq m NOT ACCURATE CREATININE CLEARANCE IN PREDICTING GLOMERULAR FILTRATION RATE . ESTIMATED GFR I S NOT APPLICABLE FOR DIALYSIS PATIEN TS. Financial Analyst Accountant ID - [id number] 05:52:00 Test Item Value Reference Range Interpretation Comments MAGNESIUM (BEAKER) (test code = 1.4 mg/dL 1.6-2.6 L 627) Financial Analyst Accountant ID - [id number] 05:52:00 Test Item Value Reference Range Interpretation Comments PHOSPHORUS (BEAKER) (test code = 1.9 mg/dL 2.3-4.7 L 604) Financial Analyst Accountant ID - EDASICBC W/PLT COUNT & AUTO [id number] 05:08:00 Test Item Value Reference Range Interpretation Comments WHITE BLOOD CELL COUNT (BEAKER) 4.7 K/ L 3.5-10.5 (test code = 775) RED BLOOD CELL COUNT (BEAKER) 2.32 M/ L 3.93-5.22 L (test code = 761) HEMOGLOBIN (BEAKER) (test code = 6.6 GM/DL 11.2-15.7 L 410) HEMATOCRIT (BEAKER) (test code = 21.0 % 34.1-44.9 L 411) MEAN CORPUSCULAR VOLUME (BEAKER) 90.5 fL 79.4-94.8 (test code = 753) MEAN CORPUSCULAR HEMOGLOBIN 28.4 pg 25.6-32.2 (BEAKER) (test code = 751) MEAN CORPUSCULAR HEMOGLOBIN CONC 31.4 GM/DL 32.2-35.5 L (BEAKER) (test code = 752) RED CELL DISTRIBUTION WIDTH 17.8 % 11.7-14.4 H (BEAKER) (test code = 412) PLATELET COUNT (BEAKER) (test 112 K/CU MM 150-450 L code = 756) MEAN PLATELET VOLUME (BEAKER) 11.9 fL 9.4-12.3 (test code = 754) NUCLEATED RED BLOOD CELLS 1 /100 WBC 0-0 H (BEAKER) (test code = 413) NEUTROPHILS RELATIVE PERCENT 68 % (BEAKER) (test code = 429) LYMPHOCYTES RELATIVE PERCENT 26 % (BEAKER) (test code = 430) MONOCYTES RELATIVE PERCENT 3 % (BEAKER) (test code = 431) EOSINOPHILS RELATIVE PERCENT 2 % (BEAKER) (test code = 432) BASOPHILS RELATIVE PERCENT 0 % (BEAKER) (test code = 437) NEUTROPHILS ABSOLUTE COUNT 3.19 K/ L 1.56-6.13 (BEAKER) (test code = 670) LYMPHOCYTES ABSOLUTE COUNT 1.23 K/ L 1.18-3.74 (BEAKER) (test code = 414) MONOCYTES ABSOLUTE COUNT (BEAKER) 0.14 K/ L 0.24-0.36 L (test code = 415) EOSINOPHILS ABSOLUTE COUNT 0.11 K/ L 0.04-0.36 (BEAKER) (test code = 416) BASOPHILS ABSOLUTE COUNT (BEAKER) 0.01 K/ L 0.01-0.08 (test code = 417) IMMATURE GRANULOCYTES-RELATIVE 0 % 0-1 PERCENT (BEAKER) (test code = 2801) POCT-GLUCOSE [id number] 23:04:00 Test Item Value Reference Range Interpretation Comments POC-GLUCOSE METER 91 mg/dL 70-110 : TESTED A T [facility] 6720 (BEAKER) (test code = [facility], 153) [address]: Financial Analyst Accountant/Techni kathryn ID = [id number] for GARCIA RANJITHELL POCT-GLUCOSE [id number] 18:01:00 Test Item Value Reference Range Interpretation Comments POC-GLUCOSE METER 105 mg/dL 70-110 : TESTED A T [facility] 6720 (BEAKER) (test code = [facility], 153) [address]: Financial Analyst Accountant/Techni kathryn ID = [id number] for GABRIELLA PINEDA POCT-GLUCOSE [id number] 14:04:00 Test Item Value Reference Range Interpretation Comments POC-GLUCOSE METER 105 mg/dL 70-110 : TESTED A T [facility] 6720 (BEAKER) (test code = [place], 1538) [address]: Financial Analyst Accountant/Techni kathryn ID = [id number] for GABRIELLA PINEDA POCT-GLUCOSE [id number] 08:48:00 Test Item Value Reference Range Interpretation Comments POC-GLUCOSE METER 109 mg/dL 70-110 : TESTED A T [facility] 6720 (BEAKER) (test code = CARLO Lin [facility], 1538) [address]: Financial Analyst Accountant/Techni kathryn ID = [id number] for GABRIELLA PINEDA [id number] 06:47:00 Test Item Value Reference Range Interpretation Comments PHOSPHORUS (BEAKER) (test code = 1.1 mg/dL 2.3-4.7 LL 604) Financial Analyst Accountant ID - EDASIHEPATIC FUNCTION [id number] 06:41:00 Test Item Value Reference Range Interpretation Comments TOTAL PROTEIN (BEAKER) (test code 12.1 gm/dL 6.0-8.3 H = 770) ALBUMIN (BEAKER) (test code = 2.3 g/dL 3.5-5.0 L 1145) BILIRUBIN TOTAL (BEAKER) (test 0.3 mg/dL 0.2-1.2 code = 377) BILIRUBIN DIRECT (BEAKER) (test 0.2 mg/dL 0.1-0.5 code = 706) ALKALINE PHOSPHATASE (BEAKER) 52 U/L 40-150 (test code = 346) AST (SGOT) (BEAKER) (test code = 11 U/L 5-34 353) ALT (SGPT) (BEAKER) (test code = < U/L 6-55 L 347) Financial Analyst Accountant ID - EDASIBASIC METABOLIC [id number] 06:36:00 Test Item Value Reference Range Interpretation Comments SODIUM (BEAKER) 128 meq/L 136-145 L (test code = 381) POTASSIUM (BEAKER) 3.2 meq/L 3.5-5.1 L (test code = 379) CHLORIDE (BEAKER) 100 meq/L 98-107 (test code = 382) CO2 (BEAKER) (test 27 meq/L 22-29 code = 355) BLOOD UREA NITROGEN 15 mg/dL 7-21 (BEAKER) (test code = 354) CREATININE (BEAKER) 2.41 mg/dL 0.57-1.25 H (test code = 358) GLUCOSE RANDOM 117 mg/dL 70-105 H (BEAKER) (test code = 652) CALCIUM (BEAKER) 6.8 mg/dL 8.4-10.2 L (test code = 697) EGFR (BEAKER) (test 24 mL/min/1.73 ESTIMA NICOLE GFR IS code = 1092) sq m NOT ACCURATE CREATININE CLEARANCE IN PREDICTING GLOMERULAR FILTRATION RATE . ESTIMATED GFR I S NOT APPLICABLE FOR DIALYSIS PATIEN TS. Financial Analyst Accountant ID - [id number] 06:34:00 Test Item Value Reference Range Interpretation Comments MAGNESIUM (BEAKER) (test code = 1.5 mg/dL 1.6-2.6 L 627) Financial Analyst Accountant ID - EDASICBC W/PLT COUNT & AUTO [id number] 06:19:00 Test Item Value Reference Range Interpretation Comments WHITE BLOOD CELL COUNT (BEAKER) 6.2 K/ L 3.5-10.5 (test code = 775) RED BLOOD CELL COUNT (BEAKER) 2.47 M/ L 3.93-5.22 L (test code = 761) HEMOGLOBIN (BEAKER) (test code = 7.1 GM/DL 11.2-15.7 L 410) HEMATOCRIT (BEAKER) (test code = 22.5 % 34.1-44.9 L 411) MEAN CORPUSCULAR VOLUME (BEAKER) 91.1 fL 79.4-94.8 (test code = 753) MEAN CORPUSCULAR HEMOGLOBIN 28.7 pg 25.6-32.2 (BEAKER) (test code = 751) MEAN CORPUSCULAR HEMOGLOBIN CONC 31.6 GM/DL 32.2-35.5 L (BEAKER) (test code = 752) RED CELL DISTRIBUTION WIDTH 17.6 % 11.7-14.4 H (BEAKER) (test code = 412) PLATELET COUNT (BEAKER) (test 113 K/CU MM 150-450 L code = 756) MEAN PLATELET VOLUME (BEAKER) 11.6 fL 9.4-12.3 (test code = 754) NUCLEATED RED BLOOD CELLS 0 /100 WBC 0-0 (BEAKER) (test code = 413) NEUTROPHILS RELATIVE PERCENT 78 % (BEAKER) (test code = 429) LYMPHOCYTES RELATIVE PERCENT 18 % (BEAKER) (test code = 430) MONOCYTES RELATIVE PERCENT 3 % (BEAKER) (test code = 431) EOSINOPHILS RELATIVE PERCENT 1 % (BEAKER) (test code = 432) BASOPHILS RELATIVE PERCENT 0 % (BEAKER) (test code = 437) NEUTROPHILS ABSOLUTE COUNT 4.81 K/ L 1.56-6.13 (BEAKER) (test code = 670) LYMPHOCYTES ABSOLUTE COUNT 1.11 K/ L 1.18-3.74 L (BEAKER) (test code = 414) MONOCYTES ABSOLUTE COUNT (BEAKER) 0.21 K/ L 0.24-0.36 L (test code = 415) EOSINOPHILS ABSOLUTE COUNT 0.03 K/ L 0.04-0.36 L (BEAKER) (test code = 416) BASOPHILS ABSOLUTE COUNT (BEAKER) 0.00 K/ L 0.01-0.08 L (test code = 417) IMMATURE GRANULOCYTES-RELATIVE 0 % 0-1 PERCENT (BEAKER) (test code = 2801) POCT-GLUCOSE [id number] 21:37:00 Test Item Value Reference Range Interpretation Comments POC-GLUCOSE METER 141 mg/dL 70-110 H : TESTED A T [facility] 6720 (BEAKER) (test code = SADESHORTY Lin [facility], 1538) [address]: Financial Analyst Accountant/Techni kathryn ID = [id number] for MELISSA LACY, RANJITHMAXWELL HEMODIALYSIS [id number] 20:06:35Venancio Dominique RN 07/23/2020 8:07 PMPatient tolerated 3.5HRS. HD. Net UF 2000ml. Pt denies any discomfort. Report given to primary nurse. Lab Results Component Value Date GLUCOSE 97 07/23/2020 CALCIUM 6.5 (L) 07/23/2020 NA 129 (L) 07/23/2020 K 3.7 07/23/2020 CO2 25 07/23/2020 CL 104 07/23/2020 BUN 19 07/23/2020 CREATININE 3.44 (H) 07/23/2020 Lab Results Component Value DateWBC 6.1 07/23/2020 HGB 7.1 (L) 07/23/2020 HCT 23.5 (L) 07/23/2020 MCV 91.4 07/23/2020 PLT 109 (L) 07/23/2020 Lab Results Component Value Date HEPBSAG Nonreactive 07/05/2020[facility] [id number] 12:13:00 Test Item Value Reference Range Interpretation Comments POC-GLUCOSE METER 92 mg/dL 70-110 : TESTED A T [facility] 6720 (BEAKER) (test code = CARLO Lin [facility], 1538) [address]: Financial Analyst Accountant/Techni kathryn ID = [id number] for BRINA GONZALEZ POCT-GLUCOSE [id number] 08:15:00 Test Item Value Reference Range Interpretation Comments POC-GLUCOSE METER 72 mg/dL 70-110 : TESTED A T [facility] 6720 (BEAKER) (test code = CARLO iLn [facility], 1538) [address]: Financial Analyst Accountant/Techni kathryn ID = [id number] for BRINA GONZALEZ ECG 12 [id number] 07:05:58Interface, External Ris In - 07/23/2020 7:06 AM CDTVentricular Rate 70 BPMAtrial Rate 70 BPMP-R Interval 110 msQRS Duration 100 msQ-T Interval 460 msQTC Calculation(Bazett) 496 msP [place] 40 degreesR [place] 35 degreesT [place] 62 degreesSinus rhythm with short PRT wave inversion V3-V4 consider postischemic changesProlonged QTAbnormal ECGWhen compared with ECG of 16-JUL-2020 16:17,T waves are no longer negative in V1-E3Oyxyebdtd by MD BRADLEY, EMERALD ([id number]) on 07/23/2020 7:05:52 [facility] [id number] 05:42:00 Test Item Value Reference Range Interpretation Comments SODIUM (BEAKER) 129 meq/L 136-145 L (test code = 381) POTASSIUM (BEAKER) 3.7 meq/L 3.5-5.1 (test code = 379) CHLORIDE (BEAKER) 104 meq/L 98-107 (test code = 382) CO2 (BEAKER) (test 25 meq/L 22-29 code = 355) BLOOD UREA NITROGEN 19 mg/dL 7-21 (BEAKER) (test code = 354) CREATININE (BEAKER) 3.44 mg/dL 0.57-1.25 H (test code = 358) GLUCOSE RANDOM 97 mg/dL 70-105 (BEAKER) (test code = 652) CALCIUM (BEAKER) 6.5 mg/dL 8.4-10.2 L (test code = 697) EGFR (BEAKER) (test 16 mL/min/1.73 ESTIMA NICOLE GFR IS code = 1092) sq m NOT ACCURATE CREATININE CLEARANCE IN PREDICTING GLOMERULAR FILTRATION RATE . ESTIMATED GFR I S NOT APPLICABLE FOR DIALYSIS PATIEN TS. Financial Analyst Accountant ID - [id number] 05:41:00 Test Item Value Reference Range Interpretation Comments MAGNESIUM (BEAKER) (test code = 1.6 mg/dL 1.6-2.6 627) Financial Analyst Accountant ID - [id number] 05:41:00 Test Item Value Reference Range Interpretation Comments PHOSPHORUS (BEAKER) (test code = 2.2 mg/dL 2.3-4.7 L 604) Financial Analyst Accountant ID - EDASICBC W/PLT COUNT & AUTO [id number] 04:44:00 Test Item Value Reference Range Interpretation Comments WHITE BLOOD CELL COUNT (BEAKER) 6.1 K/ L 3.5-10.5 (test code = 775) RED BLOOD CELL COUNT (BEAKER) 2.57 M/ L 3.93-5.22 L (test code = 761) HEMOGLOBIN (BEAKER) (test code = 7.1 GM/DL 11.2-15.7 L 410) HEMATOCRIT (BEAKER) (test code = 23.5 % 34.1-44.9 L 411) MEAN CORPUSCULAR VOLUME (BEAKER) 91.4 fL 79.4-94.8 (test code = 753) MEAN CORPUSCULAR HEMOGLOBIN 27.6 pg 25.6-32.2 (BEAKER) (test code = 751) MEAN CORPUSCULAR HEMOGLOBIN CONC 30.2 GM/DL 32.2-35.5 L (BEAKER) (test code = 752) RED CELL DISTRIBUTION WIDTH 17.8 % 11.7-14.4 H (BEAKER) (test code = 412) PLATELET COUNT (BEAKER) (test 109 K/CU MM 150-450 L code = 756) MEAN PLATELET VOLUME (BEAKER) 10.9 fL 9.4-12.3 (test code = 754) NUCLEATED RED BLOOD CELLS 0 /100 WBC 0-0 (BEAKER) (test code = 413) NEUTROPHILS RELATIVE PERCENT 71 % (BEAKER) (test code = 429) LYMPHOCYTES RELATIVE PERCENT 26 % (BEAKER) (test code = 430) MONOCYTES RELATIVE PERCENT 2 % (BEAKER) (test code = 431) EOSINOPHILS RELATIVE PERCENT 0 % (BEAKER) (test code = 432) BASOPHILS RELATIVE PERCENT 0 % (BEAKER) (test code = 437) NEUTROPHILS ABSOLUTE COUNT 4.33 K/ L 1.56-6.13 (BEAKER) (test code = 670) LYMPHOCYTES ABSOLUTE COUNT 1.60 K/ L 1.18-3.74 (BEAKER) (test code = 414) MONOCYTES ABSOLUTE COUNT (BEAKER) 0.13 K/ L 0.24-0.36 L (test code = 415) EOSINOPHILS ABSOLUTE COUNT 0.02 K/ L 0.04-0.36 L (BEAKER) (test code = 416) BASOPHILS ABSOLUTE COUNT (BEAKER) 0.01 K/ L 0.01-0.08 (test code = 417) IMMATURE GRANULOCYTES-RELATIVE 0 % 0-1 PERCENT (BEAKER) (test code = 2801) POCT-GLUCOSE [id number] 21:42:00 Test Item Value Reference Range Interpretation Comments POC-GLUCOSE METER 89 mg/dL 70-110 : TESTED A T [facility] 6720 (BEAKER) (test code = [facility], 1538) [address]: Financial Analyst Accountant/Techni kathryn ID = [id number] for GARCIA RANJITHELL POCT-GLUCOSE [id number] 17:11:00 Test Item Value Reference Range Interpretation Comments POC-GLUCOSE METER 91 mg/dL 70-110 : TESTED A T [facility] 6720 (BEAKER) (test code = [facility], 1538) [address]: Financial Analyst Accountant/Techni kathryn ID = [id number] for JAIM E KILLIAN, SONIA POCT-GLUCOSE [id number] 12:29:00 Test Item Value Reference Range Interpretation Comments POC-GLUCOSE METER 107 mg/dL 70-110 : TESTED A T [facility] 6720 (BEAKER) (test code [facility], = 1538) [address]: Financial Analyst Accountant/Techni kathryn ID = [id number] for JAIM E KILLIAN, SONIA POCT-GLUCOSE [id number] 08:03:00 Test Item Value Reference Range Interpretation Comments POC-GLUCOSE METER 127 mg/dL 70-110 H : TESTED A T [facility] 6720 (BEAKER) (test code [place], = 1538) [address]: Financial Analyst Accountant/Techni kathryn ID = [id number] for SONIA COBOS BASIC METABOLIC [id number] 06:20:00 Test Item Value Reference Range Interpretation Comments SODIUM (BEAKER) 134 meq/L 136-145 L (test code = 381) POTASSIUM (BEAKER) 4.0 meq/L 3.5-5.1 (test code = 379) CHLORIDE (BEAKER) 106 meq/L 98-107 (test code = 382) CO2 (BEAKER) (test 26 meq/L 22-29 code = 355) BLOOD UREA NITROGEN 7 mg/dL 7-21 (BEAKER) (test code = 354) CREATININE (BEAKER) 2.09 mg/dL 0.57-1.25 H (test code = 358) GLUCOSE RANDOM 124 mg/dL 70-105 H (BEAKER) (test code = 652) CALCIUM (BEAKER) 6.7 mg/dL 8.4-10.2 L (test code = 697) EGFR (BEAKER) (test 28 mL/min/1.73 ESTIMA NICOLE GFR IS code = 1092) sq m NOT ACCURATE CREATININE CLEARANCE IN PREDICTING GLOMERULAR FILTRATION RATE . ESTIMATED GFR I S NOT APPLICABLE FOR DIALYSIS PATIEN TS. Financial Analyst Accountant ID - [id number] 06:09:00 Test Item Value Reference Range Interpretation Comments MAGNESIUM (BEAKER) (test code = 1.7 mg/dL 1.6-2.6 627) Financial Analyst Accountant ID - [id number] 06:09:00 Test Item Value Reference Range Interpretation Comments PHOSPHORUS (BEAKER) (test code = 2.0 mg/dL 2.3-4.7 L 604) Financial Analyst Accountant ID - EDASICBC W/PLT COUNT & AUTO [id number] 05:37:00 Test Item Value Reference Range Interpretation Comments WHITE BLOOD CELL COUNT (BEAKER) 5.1 K/ L 3.5-10.5 (test code = 775) RED BLOOD CELL COUNT (BEAKER) 2.65 M/ L 3.93-5.22 L (test code = 761) HEMOGLOBIN (BEAKER) (test code = 7.7 GM/DL 11.2-15.7 L 410) HEMATOCRIT (BEAKER) (test code = 24.1 % 34.1-44.9 L 411) MEAN CORPUSCULAR VOLUME (BEAKER) 90.9 fL 79.4-94.8 (test code = 753) MEAN CORPUSCULAR HEMOGLOBIN 29.1 pg 25.6-32.2 (BEAKER) (test code = 751) MEAN CORPUSCULAR HEMOGLOBIN CONC 32.0 GM/DL 32.2-35.5 L (BEAKER) (test code = 752) RED CELL DISTRIBUTION WIDTH 17.6 % 11.7-14.4 H (BEAKER) (test code = 412) PLATELET COUNT (BEAKER) (test 122 K/CU MM 150-450 L code = 756) MEAN PLATELET VOLUME (BEAKER) 11.0 fL 9.4-12.3 (test code = 754) NUCLEATED RED BLOOD CELLS 1 /100 WBC 0-0 H (BEAKER) (test code = 413) NEUTROPHILS RELATIVE PERCENT 93 % (BEAKER) (test code = 429) LYMPHOCYTES RELATIVE PERCENT 6 % (BEAKER) (test code = 430) MONOCYTES RELATIVE PERCENT 2 % (BEAKER) (test code = 431) EOSINOPHILS RELATIVE PERCENT 0 % (BEAKER) (test code = 432) BASOPHILS RELATIVE PERCENT 0 % (BEAKER) (test code = 437) NEUTROPHILS ABSOLUTE COUNT 4.74 K/ L 1.56-6.13 (BEAKER) (test code = 670) LYMPHOCYTES ABSOLUTE COUNT 0.29 K/ L 1.18-3.74 L (BEAKER) (test code = 414) MONOCYTES ABSOLUTE COUNT (BEAKER) 0.08 K/ L 0.24-0.36 L (test code = 415) EOSINOPHILS ABSOLUTE COUNT 0.00 K/ L 0.04-0.36 L (BEAKER) (test code = 416) BASOPHILS ABSOLUTE COUNT (BEAKER) 0.00 K/ L 0.01-0.08 L (test code = 417) IMMATURE GRANULOCYTES-RELATIVE 0 % 0-1 PERCENT (BEAKER) (test code = 2801) HEMODIALYSIS [id number] 23:12:34James Silverio RN 07/21/2020 11:16 PMTolerated and completed 4 hours and 0 minutes. No distressnoted, asymptomatic. Denies any discomfort and pain.UF fluid removed 2liters.Packed cvc port with hep amish 5000 units/ml and secured line with blue caps, gauze and tape. Report given to Primary Nurse Patient stable. Latest lab result:Lab Results Component Value Date WBC 7.6 07/21/2020 HGB 7.6 (L) 07/21/2020 HCT 24.0 (L) 07/21/2020 MCV 89.9 07/21/2020 PLT 132 (L) 07/21/2020 Lab Results Component Value Date GLUCOSE 112 (H) 07/21/2020 CALCIUM 6.4 (L) 07/21/2020 NA 130 (L) 07/21/2020 K 3.7 07/21/2020 CO2 22 07/21/2020 CL 102 07/21/2020 BUN 23 (H) 07/21/2020 CREATININE 4.42 (H) 07/21/2020 James VILLAFUERTE, RN [id number]- Adult [id number] [facility] [address] [id number] 23:04:00 Test Item Value Reference Range Interpretation Comments POC-GLUCOSE METER 146 mg/dL 70-110 H : TESTED A T [facility] 6720 (BEAKER) (test code = [facility], 1538) [id number]: Financial Analyst Accountant/Techni kathryn ID = [id number] for Jacquie sridhar, James POCT-GLUCOSE [id number] 23:00:00 Test Item Value Reference Range Interpretation Comments POC-GLUCOSE METER 60 mg/dL 70-110 L : TESTED A T [facility] 6720 (BEAKER) (test code = [facility], 1538) 07108: Financial Analyst Accountant/Techni kathryn ID = [id number] for Virginia arce, James POCT-GLUCOSE [id number] 18:02:00 Test Item Value Reference Range Interpretation Comments POC-GLUCOSE METER 97 mg/dL 70-110 : TESTED A T [facility] 6720 (BEAKER) (test code = [facility], 153) 58867: Financial Analyst Accountant/Techni kathryn ID = [id number] for OJED A, JOS POCT-GLUCOSE [id number] 17:11:00 Test Item Value Reference Range Interpretation Comments POC-GLUCOSE METER 65 mg/dL 70-110 L : TESTED A T [facility] 6720 (BEAKER) (test code = [facility], 1538) 76936: Financial Analyst Accountant/Techni kathryn ID = [id number] for JOS LARA POCT-GLUCOSE [id number] 13:15:00 Test Item Value Reference Range Interpretation Comments POC-GLUCOSE METER 104 mg/dL 70-110 : TESTED A T [facility] 6720 (BEAKER) (test code = [facility], 1538) 82431: Financial Analyst Accountant/Techni kathryn ID = [id number] for JOSE ANTONIO SALEH POCT-GLUCOSE [id number] 12:38:00 Test Item Value Reference Range Interpretation Comments POC-GLUCOSE METER 69 mg/dL 70-110 L : TESTED A T [facility] 6720 (BEAKER) (test code = [facility], 1538) 17892: Financial Analyst Accountant/Techni kathryn ID = [id number] for GABRIELLA BURNHAM POCT-GLUCOSE [id number] 08:31:00 Test Item Value Reference Range Interpretation Comments POC-GLUCOSE METER 98 mg/dL 70-110 : TESTED A T [facility] 6720 (Streaming EraAKER) (test code = [facility], 1538) 89081: Financial Analyst Accountant/Techni kathryn ID = [id number] for JOS LARA [id number] 05:21:00 Test Item Value Reference Range Interpretation Comments Protime (test code = 17.4 11.9- 14.2 H 5902-2) seconds INR (test code = 1.47 <=5.90 6301-6) PTT (test code = 25.2 22.5- 36.0 91513-9) seconds HERBIE (test code = HERBIE) Effective 03/04/2019: PT Reference Range ChangeNew: 11.9-14.2 Previous: 11.7-14.7 RECOMMENDED COUMADIN/WARFARIN INR THERAPY RANGESSTANDARD DOSE: 2.0-3.0 Includes: PROPHYLAXIS for venous thrombosis, systemic embolization; TREATMENT for venous thrombosis and/or pulmonary embolus.HIGH RISK: Target INR is 2.5-3.5 for patients wiht mechanical heart valves. Lab Interpretation Abnormal (test code = 62591-2) [id number] 05:21:00 Test Item Value Reference Range Interpretation Comments PROTIME (BEAKER) (test code = 17.4 seconds 11.9-14.2 H 759) INR (BEAKER) (test code = 370) 1.47 <=5.90 PARTIAL THROMBOPLASTIN TIME 25.2 seconds 22.5-36.0 (BEAKER) (test code = 760) Effective 03/04/2019: PT Reference Range ChangeNew: 11.9-14.2 Previous: 11.7- 14.7RECOMMENDED COUMADIN/WARFARIN INR THERAPY RANGESSTANDARD DOSE: 2.0-3.0 Includes: PROPHYLAXIS for venous thrombosis, systemic embolization; TREATMENT for venous thrombosis and/or pulmonary embolus.HIGH RISK: Target INR is2.5-3.5 for patients wiht mechanical heart valves.BASIC METABOLIC [id number] 05:20:00 Test Item Value Reference Range Interpretation Comments SODIUM (BEAKER) 130 meq/L 136-145 L (test code = 381) POTASSIUM (BEAKER) 3.7 meq/L 3.5-5.1 (test code = 379) CHLORIDE (BEAKER) 102 meq/L 98-107 (test code = 382) CO2 (BEAKER) (test 22 meq/L 22-29 code = 355) BLOOD UREA NITROGEN 23 mg/dL 7-21 H (BEAKER) (test code = 354) CREATININE (BEAKER) 4.42 mg/dL 0.57-1.25 H (test code = 358) GLUCOSE RANDOM 112 mg/dL 70-105 H (BEAKER) (test code = 652) CALCIUM (BEAKER) 6.4 mg/dL 8.4-10.2 L (test code = 697) EGFR (BEAKER) (test 12 mL/min/1.73 ESTIMA NICOLE GFR IS code = 1092) sq m NOT ACCURATE CREATININE CLEARANCE IN PREDICTING GLOMERULAR FILTRATION RATE . ESTIMATED GFR I S NOT APPLICABLE FOR DIALYSIS PATIEN TS. Financial Analyst Accountant ID - PALAK [id number] 05:18:00 Test Item Value Reference Range Interpretation Comments MAGNESIUM (BEAKER) (test code = 1.7 mg/dL 1.6-2.6 627) Financial Analyst Accountant ID - PALAK [id number] 05:18:00 Test Item Value Reference Range Interpretation Comments PHOSPHORUS (BEAKER) (test code = 2.7 mg/dL 2.3-4.7 604) Financial Analyst Accountant ID - PALAK MCBC W/PLT COUNT & AUTO [id number] 05:09:00 Test Item Value Reference Range Interpretation Comments WHITE BLOOD CELL COUNT (BEAKER) 7.6 K/ L 3.5-10.5 (test code = 775) RED BLOOD CELL COUNT (BEAKER) 2.67 M/ L 3.93-5.22 L (test code = 761) HEMOGLOBIN (BEAKER) (test code = 7.6 GM/DL 11.2-15.7 L 410) HEMATOCRIT (BEAKER) (test code = 24.0 % 34.1-44.9 L 411) MEAN CORPUSCULAR VOLUME (BEAKER) 89.9 fL 79.4-94.8 (test code = 753) MEAN CORPUSCULAR HEMOGLOBIN 28.5 pg 25.6-32.2 (BEAKER) (test code = 751) MEAN CORPUSCULAR HEMOGLOBIN CONC 31.7 GM/DL 32.2-35.5 L (BEAKER) (test code = 752) RED CELL DISTRIBUTION WIDTH 17.2 % 11.7-14.4 H (BEAKER) (test code = 412) PLATELET COUNT (BEAKER) (test 132 K/CU MM 150-450 L code = 756) MEAN PLATELET VOLUME (BEAKER) 10.8 fL 9.4-12.3 (test code = 754) NUCLEATED RED BLOOD CELLS 0 /100 WBC 0-0 (BEAKER) (test code = 413) NEUTROPHILS RELATIVE PERCENT 97 % (BEAKER) (test code = 429) LYMPHOCYTES RELATIVE PERCENT 3 % (BEAKER) (test code = 430) MONOCYTES RELATIVE PERCENT 0 % (BEAKER) (test code = 431) EOSINOPHILS RELATIVE PERCENT 0 % (BEAKER) (test code = 432) BASOPHILS RELATIVE PERCENT 0 % (BEAKER) (test code = 437) NEUTROPHILS ABSOLUTE COUNT 7.30 K/ L 1.56-6.13 H (BEAKER) (test code = 670) LYMPHOCYTES ABSOLUTE COUNT 0.23 K/ L 1.18-3.74 L (BEAKER) (test code = 414) MONOCYTES ABSOLUTE COUNT (BEAKER) 0.01 K/ L 0.24-0.36 L (test code = 415) EOSINOPHILS ABSOLUTE COUNT 0.00 K/ L 0.04-0.36 L (BEAKER) (test code = 416) BASOPHILS ABSOLUTE COUNT (BEAKER) 0.00 K/ L 0.01-0.08 L (test code = 417) IMMATURE GRANULOCYTES-RELATIVE 0 % 0-1 PERCENT (BEAKER) (test code = 2801) POCT-GLUCOSE [id number] 16:51:00 Test Item Value Reference Range Interpretation Comments POC-GLUCOSE METER 82 mg/dL 70-110 : TESTED A T [facility] 6720 (BEAKER) (test code = [facility], 1538) 79487: Financial Analyst Accountant/Techni kathryn ID = [id number] for ISAIAH Dodson SUKHWINDER SARS-COV2/RT-PCR ([facility])2020-07-20 13:31:00 Test Item Value Reference Range Interpretation Comments SARS-COV2/RT-PCR (test Negative Not Detected, Negative, code = 3877589) See external report for linked test SARS-COV-2 PERFORMING LAB [facility] CASSANDRA (test code = 8151631) Negative result for this test determines that SARS-CoV-2 RNA was not present in the specimen above the Limit of Detection (LOD). However, Negative results do not preclude SARS-CoV-2 infection and should not be used as the sole basis for treatment or patient management decisions. Negative results mustbe combined with clinical observations, patient history, and epidemiological information. A false negative result may occur if a specimen is improperly collected, transported or handled. A false negative result should be considered if patient's recent exposures or clinical presentation indicate that COVID-19 (SARS-CoV-2) is likely and diagnostic tests for other causes of illness are negative. Re-testing should be considered in cases of suspected false negatives.The limit of detection for this assay is 800 copies/mL.This SARS CoV-2 test is a real-time RT-PCR test intended for the qualitative detection of nucleic acid from SARS-CoV-2 in a nasopharyngeal swab specimen collected from individuals susp ected of COVID-19 by their healthcare provider.This test has not been Food and Drug Administration (FDA) cleared or approved. This is a modified version of an approved Emergency Use Authorization (EUA) and is in the process of review by the FDA. Once authorized by the FDA, the issued EUA will be effective until the declaration that circumstances exist justifying the authorization of the emergency use of in vitro diagnostic tests for detection and/or diagnosis of COVID-19 is terminated under Section 564(b)(2) of the Act or the EUA is revoked under Section 564(g) of the Act.Fact Sheet for Healthcare Providers:https://www.[employer]/sites/default/files/product/documents/Fact_Shee i_NI_Yddgvzybk_Pbic_QBVM-EnU-4.pdfFact Sheet for Healthcare Patients:https://www.[employer]/sites/default/files/product/ documents/Qyjv_Xrrrz_Waoyiwjz_Xbhd_HSSR-ShL-0.pdfPerforming Laboratory:[place] [id number] [facility] [place], [place] [address]RVXM-OLWXJIQ METER 2020-07-20 12:19:00 Test Item Value Reference Range Interpretation Comments POC-GLUCOSE METER 87 mg/dL 70-110 : TESTED A T [facility] 6720 (BEAKER) (test code = [facility], 1538) 84421: Financial Analyst Accountant/Techni kathryn ID = [id number] for SUKHWINDER BURNHAM POCT-GLUCOSE [id number] 09:19:00 Test Item Value Reference Range Interpretation Comments POC-GLUCOSE METER 114 mg/dL 70-110 H : TESTED A T [facility] 6720 (BEAKER) (test code [facility], = 1538) 20333: Financial Analyst Accountant/Techni kathryn ID = [id number] for MEGAN Dodson NAOMIRAYMOND IMMUNOGLOBULIN G (IGG)2020-07-20 04:58:00 Test Item Value Reference Range Interpretation Comments IMMUNOGLOBULIN G (IGG) (BEAKER) 9540 mg/dL 540-1,822 H (test code = 427) Financial Analyst Accountant ID - PALAK MOperator ID - PALAK MBASIC METABOLIC [id number] 04:25:00 Test Item Value Reference Range Interpretation Comments SODIUM (BEAKER) 128 meq/L 136-145 L (test code = 381) POTASSIUM (BEAKER) 3.8 meq/L 3.5-5.1 (test code = 379) CHLORIDE (BEAKER) 100 meq/L 98-107 (test code = 382) CO2 (BEAKER) (test 24 meq/L 22-29 code = 355) BLOOD UREA NITROGEN 11 mg/dL 7-21 (BEAKER) (test code = 354) CREATININE (BEAKER) 2.88 mg/dL 0.57-1.25 H (test code = 358) GLUCOSE RANDOM 132 mg/dL 70-105 H (BEAKER) (test code = 652) CALCIUM (BEAKER) 7.0 mg/dL 8.4-10.2 L (test code = 697) EGFR (BEAKER) (test 19 mL/min/1.73 ESTIMA NICOLE GFR IS code = 1092) sq m NOT ACCURATE CREATININE CLEARANCE IN PREDICTING GLOMERULAR FILTRATION RATE . ESTIMATED GFR I S NOT APPLICABLE FOR DIALYSIS PATIEN TS. Financial Analyst Accountant ID - PALAK [id number] 04:16:00 Test Item Value Reference Range Interpretation Comments MAGNESIUM (BEAKER) (test code = 1.5 mg/dL 1.6-2.6 L 627) Financial Analyst Accountant ID - PALAK [id number] 04:16:00 Test Item Value Reference Range Interpretation Comments PHOSPHORUS (BEAKER) (test code = 2.3 mg/dL 2.3-4.7 604) Financial Analyst Accountant ID - PALAK MCBC W/PLT COUNT & AUTO [id number] 03:48:00 Test Item Value Reference Range Interpretation Comments WHITE BLOOD CELL COUNT (BEAKER) 7.5 K/ L 3.5-10.5 (test code = 775) RED BLOOD CELL COUNT (BEAKER) 2.85 M/ L 3.93-5.22 L (test code = 761) HEMOGLOBIN (BEAKER) (test code = 8.0 GM/DL 11.2-15.7 L 410) HEMATOCRIT (BEAKER) (test code = 25.4 % 34.1-44.9 L 411) MEAN CORPUSCULAR VOLUME (BEAKER) 89.1 fL 79.4-94.8 (test code = 753) MEAN CORPUSCULAR HEMOGLOBIN 28.1 pg 25.6-32.2 (BEAKER) (test code = 751) MEAN CORPUSCULAR HEMOGLOBIN CONC 31.5 GM/DL 32.2-35.5 L (BEAKER) (test code = 752) RED CELL DISTRIBUTION WIDTH 17.2 % 11.7-14.4 H (BEAKER) (test code = 412) PLATELET COUNT (BEAKER) (test 166 K/CU MM 150-450 code = 756) MEAN PLATELET VOLUME (BEAKER) 10.5 fL 9.4-12.3 (test code = 754) NUCLEATED RED BLOOD CELLS 0 /100 WBC 0-0 (BEAKER) (test code = 413) NEUTROPHILS RELATIVE PERCENT 78 % (BEAKER) (test code = 429) LYMPHOCYTES RELATIVE PERCENT 20 % (BEAKER) (test code = 430) MONOCYTES RELATIVE PERCENT 1 % (BEAKER) (test code = 431) EOSINOPHILS RELATIVE PERCENT 0 % (BEAKER) (test code = 432) BASOPHILS RELATIVE PERCENT 0 % (BEAKER) (test code = 437) NEUTROPHILS ABSOLUTE COUNT 5.85 K/ L 1.56-6.13 (BEAKER) (test code = 670) LYMPHOCYTES ABSOLUTE COUNT 1.53 K/ L 1.18-3.74 (BEAKER) (test code = 414) MONOCYTES ABSOLUTE COUNT (BEAKER) 0.10 K/ L 0.24-0.36 L (test code = 415) EOSINOPHILS ABSOLUTE COUNT 0.00 K/ L 0.04-0.36 L (BEAKER) (test code = 416) BASOPHILS ABSOLUTE COUNT (BEAKER) 0.01 K/ L 0.01-0.08 (test code = 417) IMMATURE GRANULOCYTES-RELATIVE 0 % 0-1 PERCENT (BEAKER) (test code = 2801) POCT-GLUCOSE [id number] 18:26:00 Test Item Value Reference Range Interpretation Comments POC-GLUCOSE METER 151 mg/dL 70-110 H : TESTED A T [facility] 6720 (BEAKER) (test code = [facility], 153) 74155: Financial Analyst Accountant/Techni kathryn ID = [id number] for CARDOZA BLET, DOUG POCT-GLUCOSE [id number] 18:24:00 Test Item Value Reference Range Interpretation Comments POC-GLUCOSE METER 68 mg/dL 70-110 L : TESTED A T [facility] 6720 (BEAKER) (test code = [facility], 153) 27177: Financial Analyst Accountant/Techni kathryn ID = [id number] for GARC IA, CASSIDY POCT-GLUCOSE [id number] 17:05:00 Test Item Value Reference Range Interpretation Comments POC-GLUCOSE METER 68 mg/dL 70-110 L : TESTED A T [facility] 6720 (BEAKER) (test code = [facility], 1538) 87824: Financial Analyst Accountant/Techni kathryn ID = [id number] for SUBL ETDOUG POCT-GLUCOSE [id number] 11:37:00 Test Item Value Reference Range Interpretation Comments POC-GLUCOSE METER 93 mg/dL 70-110 : TESTED A T [facility] 6720 (BEAKER) (test code = [facility], 1538) 98506: Financial Analyst Accountant/Techni kathryn ID = [id number] for STOJ CIC, NADA POCT-GLUCOSE [id number] 08:03:00 Test Item Value Reference Range Interpretation Comments POC-GLUCOSE METER 100 mg/dL 70-110 : TESTED A T [facility] 6720 (BEAKER) (test code = [facility], 1538) 63641: Financial Analyst Accountant/Techni kathryn ID = [id number] for CARDOZA DOUG NAIR BASIC METABOLIC [id number] 04:24:00 Test Item Value Reference Range Interpretation Comments SODIUM (BEAKER) 130 meq/L 136-145 L (test code = 381) POTASSIUM (BEAKER) 3.9 meq/L 3.5-5.1 (test code = 379) CHLORIDE (BEAKER) 102 meq/L 98-107 (test code = 382) CO2 (BEAKER) (test 22 meq/L 22-29 code = 355) BLOOD UREA NITROGEN 17 mg/dL 7-21 (BEAKER) (test code = 354) CREATININE (BEAKER) 3.71 mg/dL 0.57-1.25 H (test code = 358) GLUCOSE RANDOM 92 mg/dL 70-105 (BEAKER) (test code = 652) CALCIUM (BEAKER) 6.7 mg/dL 8.4-10.2 L (test code = 697) EGFR (BEAKER) (test 14 mL/min/1.73 ESTIMA NICOLE GFR IS code = 1092) sq m NOT ACCURATE CREATININE CLEARANCE IN PREDICTING GLOMERULAR FILTRATION RATE . ESTIMATED GFR I S NOT APPLICABLE FOR DIALYSIS PATIEN TS. Financial Analyst Accountant ID - [id number] 04:13:00 Test Item Value Reference Range Interpretation Comments MAGNESIUM (BEAKER) (test code = 1.5 mg/dL 1.6-2.6 L 627) Financial Analyst Accountant ID - [id number] 04:13:00 Test Item Value Reference Range Interpretation Comments PHOSPHORUS (BEAKER) (test code = 2.5 mg/dL 2.3-4.7 604) Financial Analyst Accountant ID - EDASICBC W/PLT COUNT & AUTO [id number] 04:02:00 Test Item Value Reference Range Interpretation Comments WHITE BLOOD CELL COUNT (BEAKER) 5.7 K/ L 3.5-10.5 (test code = 775) RED BLOOD CELL COUNT (BEAKER) 2.96 M/ L 3.93-5.22 L (test code = 761) HEMOGLOBIN (BEAKER) (test code = 8.3 GM/DL 11.2-15.7 L 410) HEMATOCRIT (BEAKER) (test code = 25.9 % 34.1-44.9 L 411) MEAN CORPUSCULAR VOLUME (BEAKER) 87.5 fL 79.4-94.8 (test code = 753) MEAN CORPUSCULAR HEMOGLOBIN 28.0 pg 25.6-32.2 (BEAKER) (test code = 751) MEAN CORPUSCULAR HEMOGLOBIN CONC 32.0 GM/DL 32.2-35.5 L (BEAKER) (test code = 752) RED CELL DISTRIBUTION WIDTH 17.3 % 11.7-14.4 H (BEAKER) (test code = 412) PLATELET COUNT (BEAKER) (test 183 K/CU MM 150-450 code = 756) MEAN PLATELET VOLUME (BEAKER) 10.7 fL 9.4-12.3 (test code = 754) NUCLEATED RED BLOOD CELLS 0 /100 WBC 0-0 (BEAKER) (test code = 413) NEUTROPHILS RELATIVE PERCENT 88 % (BEAKER) (test code = 429) LYMPHOCYTES RELATIVE PERCENT 10 % (BEAKER) (test code = 430) MONOCYTES RELATIVE PERCENT 2 % (BEAKER) (test code = 431) EOSINOPHILS RELATIVE PERCENT 0 % (BEAKER) (test code = 432) BASOPHILS RELATIVE PERCENT 0 % (BEAKER) (test code = 437) NEUTROPHILS ABSOLUTE COUNT 5.03 K/ L 1.56-6.13 (BEAKER) (test code = 670) LYMPHOCYTES ABSOLUTE COUNT 0.56 K/ L 1.18-3.74 L (BEAKER) (test code = 414) MONOCYTES ABSOLUTE COUNT (BEAKER) 0.09 K/ L 0.24-0.36 L (test code = 415) EOSINOPHILS ABSOLUTE COUNT 0.00 K/ L 0.04-0.36 L (BEAKER) (test code = 416) BASOPHILS ABSOLUTE COUNT (BEAKER) 0.02 K/ L 0.01-0.08 (test code = 417) IMMATURE GRANULOCYTES-RELATIVE 0 % 0-1 PERCENT (BEAKER) (test code = 2801) CBC (Hemogram only)2020-07-19 03:51:00 Test Item Value Reference Range Interpretation Comments WBC (test code = 6690-2) 5.7 3.5- 10.5 K/L RBC (test code = 789-8) 2.96 3.93- 5.22 M/L L MCHC (test code = 786-4) 32.0 32.2- 35.5 GM/DL L Hematocrit (test code = 4544-3) 25.9 % 34.1-44.9 L MCV (test code = 787-2) 87.5 fL 79.4-94.8 MCH (test code = 785-6) 28.0 pg 25.6-32.2 RDW (test code = 788-0) 17.3 % 11.7-14.4 H Platelets (test code = 777-3) 183 150- 450 K/CU MM MPV (test code = 98855-2) 10.7 fL 9.4-12.3 nRBC (test code = 413) 0 0- 0 /100 WBC Lab Interpretation (test code = Abnormal 03944-0) [facility] 03:51:00 Test Item Value Reference Range Interpretation Comments WHITE BLOOD CELL COUNT (BEAKER) 5.7 K/ L 3.5-10.5 (test code = 775) RED BLOOD CELL COUNT (BEAKER) 2.96 M/ L 3.93-5.22 L (test code = 761) HEMOGLOBIN (BEAKER) (test code = 8.3 GM/DL 11.2-15.7 L 410) HEMATOCRIT (BEAKER) (test code = 25.9 % 34.1-44.9 L 411) MEAN CORPUSCULAR VOLUME (BEAKER) 87.5 fL 79.4-94.8 (test code = 753) MEAN CORPUSCULAR HEMOGLOBIN 28.0 pg 25.6-32.2 (BEAKER) (test code = 751) MEAN CORPUSCULAR HEMOGLOBIN CONC 32.0 GM/DL 32.2-35.5 L (BEAKER) (test code = 752) RED CELL DISTRIBUTION WIDTH 17.3 % 11.7-14.4 H (BEAKER) (test code = 412) PLATELET COUNT (BEAKER) (test 183 K/CU MM 150-450 code = 756) MEAN PLATELET VOLUME (BEAKER) 10.7 fL 9.4-12.3 (test code = 754) NUCLEATED RED BLOOD CELLS 0 /100 WBC 0-0 (BEAKER) (test code = 413) POCT-GLUCOSE [id number] 23:52:00 Test Item Value Reference Range Interpretation Comments POC-GLUCOSE METER 70 mg/dL 70-110 : TESTED A T [facility] 6720 (BANNER) (test code = [facility], 1538) 85507: Financial Analyst Accountant/Techni kathryn ID = [id number] for Venancio Khan HEMODIALYSIS [id number] 23:00:00James Silverio RN 07/18/2020 11:47 PMTolerated and completed 3 hours and 0minutes. No distress noted, asymptomatic. Denies any discomfort and pain.UF fluid removed 2 liters.Packed cvc port with heparin 5000 units/ml and secured line with blue caps, gauze and tape. Report given to Primary Nurse patient stable.Lab Results Component Value Date WBC 7.6 07/18/2020 HGB 6.2 (L) 07/18/2020 HCT 20.3 (L) 07/18/2020 MCV 90.6 07/18/2020 PLT 189 07/18/2020 Lab Results Component Value Date GLUCOSE 79 07/18/2020 CALCIUM 6.6 (L) 07/18/2020 NA 124 (L) 07/18/2020 K 4.3 07/18/2020 CO2 19 (L) 07/18/2020 CL 100 07/18/2020 BUN 46 (H) 07/18/2020 CREATININE 7.60 (H) 07/18/2020 James VILLAFUERTE, RN II7S6- Adult [id number] 355 4030[facility] [id number] 16:52:00 Test Item Value Reference Range Interpretation Comments POC-GLUCOSE METER 75 mg/dL 70-110 : TESTED A T [facility] 6720 (BEAKER) (test code = [facility], 1538) 01263: Financial Analyst Accountant/Techni kathryn ID = [id number] for JETHRO DIALLO POCT-GLUCOSE [id number] 12:21:00 Test Item Value Reference Range Interpretation Comments POC-GLUCOSE METER 75 mg/dL 70-110 : TESTED A T [facility] 6720 (BEAKER) (test code = [facility], 1538) 76831: Financial Analyst Accountant/Techni kathryn ID = [id number] for MEGAN SJETHRO ANG, TUNNELED CATHETER [id number] 11:50:00FINAL REPORT PROCEDURE: Tunneled hemodialysis catheter Placement 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 Versed IV 1 mg, Fentanyl IV 50 mcg. DEVICE: 19 cm cuff to tip tunneled hemodialysis catheter. DOSE INFORMATION - Ka,r: 18 mGy Estimated Blood Loss: < 5cc Samples: None. PROCEDURE: The risks, benefits, and alternatives to the procedurewere discussed with the the patient/healthcare proxy. All questions were answered and written informed consent was obtained. A universal timeout was performed prior to starting the procedure. For Prevention of Central Venous Catheter (CVC)-Related Bloodstream Infections all elements of maximal sterile barrier technique, hand hygiene, skin preparation and sterile techniques were followed. Ultrasoundof the right internal jugular vein demonstrated a patent and compressible vessel. An ultrasound image of the vessel was obtained. Lidocaine was used for cutaneous anesthesia. Under ultrasound guidance the vessel was accessed with a 19-gauge needle and through this a 0.035 inch 3J wire was positioned in the inferior vena cava. Under fluoroscopic guidance, a 15 [place]kin[place] peel-away sheath was advanced overthe wire. I next directed my attention to the anterior chest wall which was anesthetized with lidocaine. Below the clavicle a small stab incision was made with a #11 blade. Using a metallic tunneling device connected to the hemodialysis catheter a subcutaneous tract was created from the stab incision to the venotomy site and the catheter was brought out the venotomy site. The core and wire were removed and the hemodialysis catheter was advanced with its tip positioned in the right atrium. Both lumens demonstrated excellent blood return and flushed easily. Each lumen was instilled with heparin. The v enotomy site was covered with glue and Steri-Strips. The catheter was secured to the skin with suture. A dry sterile dressing was applied. The patient tolerated procedure well and was returned to the recovery area/floor in stable condition. IMPRESSION:Placement of a right internal jugular tunneled hemodialysis catheter.The catheter is ready for use. 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 Versed IV 1 mg, Fentanyl IV 50 mcg. DEVICE: 19 cm cuff to tip tunneled hemodialysis catheter. DOSE INFORMATION - Ka,r: 18 mGy Estimated Blood Loss: < 5cc Samples: None. PROCEDURE: The risks, benefits, and alternatives to the procedure were discussed with the the patient/healthcare proxy. All questions were answered and written informed consent was obtained. A universal timeout wasperformed prior to starting the procedure. For Prevention of Central Venous Catheter (CVC)-Related Bloodstream Infections all elements of maximal sterile barrier technique, hand hygiene, skin preparation and sterile techniques were followed. Ultrasound of the right internal jugular vein demonstrated a patent and compressible vessel. An ultrasound image of the vessel was obtained. Lidocaine was used for cutaneous anesthesia. Under ultrasound guidance the vessel was accessed with a 19-gauge needle and through this a 0.035 inch 3J wire was positioned in the inferior vena cava. Under fluoroscopic guidance, a 15 [place] peel-away sheath was advanced over the wire. I next directed my attention to the anterior chest wall which was anesthetized with lidocaine. Below the clavicle a small stab incision wasmade with a #11 blade. Using a metallic tunneling device connected to the hemodialysis catheter a subcutaneous tract was created from the stab incision to the venotomy site and the catheter was broughtout the venotomy site. The core and wire were removed and the hemodialysis catheter was advanced with its tip positioned in the right atrium. Both lumens demonstrated excellent blood return and flushedeasily. Each lumen was instilled with heparin. The venotomy site was covered with glue and Steri-Strips. The catheter was secured to the skin with suture. A dry sterile dressing was applied. The patient tolerated procedure well and was returned to the recovery area/floor in stable condition. IMPRESSION :Placement of a right internal jugular tunneled hemodialysis catheter.The catheter is ready for use.Signed: Jayden Stubbs MDReport Verified Date/Time: 07/18/2020 11:50:32 Reading Location: [address] Body [id number] 09:02:00 Test Item Value Reference Range Interpretation Comments PROTIME (BEAKER) (test code = 16.8 seconds 11.9-14.2 H 759) INR (BEAKER) (test code = 370) 1.40 <=5.90 PARTIAL THROMBOPLASTIN TIME 32.6 seconds 22.5-36.0 (BEAKER) (test code = 760) Effective 03/04/2019: PT Reference Range ChangeNew: 11.9-14.2 Previous: 11.7- 14.7RECOMMENDED COUMADIN/WARFARIN INR THERAPY RANGESSTANDARD DOSE: 2.0-3.0 Includes: PROPHYLAXIS for venous thrombosis, systemic embolization; TREATMENT for venous thrombosis and/or pulmonary embolus.HIGH RISK: Target INR is2.5-3.5 for patients wiht mechanical heart valves.BASIC METABOLIC [id number] 07:52:00 Test Item Value Reference Range Interpretation Comments SODIUM (BEAKER) 124 meq/L 136-145 L (test code = 381) POTASSIUM (BEAKER) 4.3 meq/L 3.5-5.1 Specimen slightly (test code = 379) hemolyzed CHLORIDE (BEAKER) 100 meq/L 98-107 (test code = 382) CO2 (BEAKER) (test 19 meq/L 22-29 L code = 355) BLOOD UREA NITROGEN 46 mg/dL 7-21 H (BEAKER) (test code = 354) CREATININE (BEAKER) 7.60 mg/dL 0.57-1.25 H Specimen slightly (test code = 358) hemolyzed GLUCOSE RANDOM 79 mg/dL 70-105 (BEAKER) (test code = 652) CALCIUM (BEAKER) 6.6 mg/dL 8.4-10.2 L (test code = 697) EGFR (BEAKER) (test 6 mL/min/1.73 ESTIMAT ED GFR IS code = 1092) sq m NOT ACCURATE CREATININE CLEARANCE IN PREDICTING GLOMERULAR FILTRATION RATE . ESTIMATED GFR I S NOT APPLICABLE FOR DIALYSIS PATIEN TS. Financial Analyst Accountant ID - PALAK [id number] 07:50:00 Test Item Value Reference Range Interpretation Comments MAGNESIUM (BEAKER) (test code = 1.8 mg/dL 1.6-2.6 627) Financial Analyst Accountant ID - PALAK [id number] 07:50:00 Test Item Value Reference Range Interpretation Comments PHOSPHORUS (BEAKER) (test code = 5.0 mg/dL 2.3-4.7 H 604) Financial Analyst Accountant ID - PALAK MPOCT-GLUCOSE [id number] 07:28:00 Test Item Value Reference Range Interpretation Comments POC-GLUCOSE METER 50 mg/dL 70-110 L : TESTED A T [facility] 6720 (BEAKER) (test code = [place], 1538) [address]: Financial Analyst Accountant/Techni kathryn ID = [id number] for JETHRO DIALLO CBC W/PLT COUNT & AUTO [id number] 07:08:00 Test Item Value Reference Range Interpretation Comments WHITE BLOOD CELL COUNT (BEAKER) 7.6 K/ L 3.5-10.5 (test code = 775) RED BLOOD CELL COUNT (BEAKER) 2.24 M/ L 3.93-5.22 L (test code = 761) HEMOGLOBIN (BEAKER) (test code = 6.2 GM/DL 11.2-15.7 L 410) HEMATOCRIT (BEAKER) (test code = 20.3 % 34.1-44.9 L 411) MEAN CORPUSCULAR VOLUME (BEAKER) 90.6 fL 79.4-94.8 (test code = 753) MEAN CORPUSCULAR HEMOGLOBIN 27.7 pg 25.6-32.2 (BEAKER) (test code = 751) MEAN CORPUSCULAR HEMOGLOBIN CONC 30.5 GM/DL 32.2-35.5 L (BEAKER) (test code = 752) RED CELL DISTRIBUTION WIDTH 18.2 % 11.7-14.4 H (BEAKER) (test code = 412) PLATELET COUNT (BEAKER) (test 189 K/CU MM 150-450 code = 756) MEAN PLATELET VOLUME (BEAKER) 11.4 fL 9.4-12.3 (test code = 754) NUCLEATED RED BLOOD CELLS 0 /100 WBC 0-0 (BEAKER) (test code = 413) NEUTROPHILS RELATIVE PERCENT 68 % (BEAKER) (test code = 429) LYMPHOCYTES RELATIVE PERCENT 27 % (BEAKER) (test code = 430) MONOCYTES RELATIVE PERCENT 4 % (BEAKER) (test code = 431) EOSINOPHILS RELATIVE PERCENT 0 % (BEAKER) (test code = 432) BASOPHILS RELATIVE PERCENT 0 % (BEAKER) (test code = 437) NEUTROPHILS ABSOLUTE COUNT 5.16 K/ L 1.56-6.13 (BEAKER) (test code = 670) LYMPHOCYTES ABSOLUTE COUNT 2.05 K/ L 1.18-3.74 (BEAKER) (test code = 414) MONOCYTES ABSOLUTE COUNT (BEAKER) 0.33 K/ L 0.24-0.36 (test code = 415) EOSINOPHILS ABSOLUTE COUNT 0.00 K/ L 0.04-0.36 L (BEAKER) (test code = 416) BASOPHILS ABSOLUTE COUNT (BEAKER) 0.01 K/ L 0.01-0.08 (test code = 417) IMMATURE GRANULOCYTES-RELATIVE 1 % 0-1 PERCENT (BEAKER) (test code = 2801) POCT-GLUCOSE [id number] 21:23:00 Test Item Value Reference Range Interpretation Comments POC-GLUCOSE METER 102 mg/dL 70-110 : TESTED Debbie Lewis [facility] 6720 (BEAKER) (test code = CARLO [place], 1538) 68[address]: Financial Analyst Accountant/Techni kathryn ID = [id number] for EASTON SALEH BASIC METABOLIC [id number] 17:33:00 Test Item Value Reference Range Interpretation Comments SODIUM (BEAKER) 125 meq/L 136-145 L (test code = 381) POTASSIUM (BEAKER) 4.3 meq/L 3.5-5.1 (test code = 379) CHLORIDE (BEAKER) 100 meq/L 98-107 (test code = 382) CO2 (BEAKER) (test 19 meq/L 22-29 L code = 355) BLOOD UREA NITROGEN 42 mg/dL 7-21 H (BEAKER) (test code = 354) CREATININE (BEAKER) 6.60 mg/dL 0.57-1.25 H (test code = 358) GLUCOSE RANDOM 104 mg/dL 70-105 (BEAKER) (test code = 652) CALCIUM (BEAKER) 6.6 mg/dL 8.4-10.2 L (test code = 697) EGFR (BEAKER) (test 7 mL/min/1.73 ESTIMAT ED GFR IS code = 1092) sq m NOT ACCURATE CREATININE CLEARANCE IN PREDICTING GLOMERULAR FILTRATION RATE . ESTIMATED GFR I S NOT APPLICABLE FOR DIALYSIS PATIEN TS. Financial Analyst Accountant ID - RMPOCT-GLUCOSE [id number] 17:16:00 Test Item Value Reference Range Interpretation Comments POC-GLUCOSE METER 97 mg/dL 70-110 : TESTED A T [facility] 6720 (BEZytoprotec) (test code = [facility], 1538) 87018: Financial Analyst Accountant/Techni kathryn ID = [id number] for SHASHI AGUILAR POCT-GLUCOSE [id number] 12:06:00 Test Item Value Reference Range Interpretation Comments POC-GLUCOSE METER 76 mg/dL 70-110 : TESTED A T [facility] 6720 (BEAKER) (test code = [facility], 1538) 25162: Financial Analyst Accountant/Techni kathryn ID = [id number] for TEZE NO, TEO POCT-GLUCOSE [id number] 07:36:00 Test Item Value Reference Range Interpretation Comments POC-GLUCOSE METER 63 mg/dL 70-110 L : TESTED A T [facility] 6720 (BEAKER) (test code = [facility], 1538) 28208: Financial Analyst Accountant/Techni kathryn ID = [id number] for TEZE NO, TEO Comprehensive metabolic [id number] 06:16:00 Test Item Value Reference Range Interpretation Comments Protein, Total (test 14.0 6.0- 8.3 gm/dL H code = 2885-2) Albumin (test code = 2.6 g/dL 3.5-5 L 26730-8) Alkaline Phosphatase 43 U/L 40-150 (test code = 6768-6) Total Bilirubin (test 0.4 mg/dL 0.2-1.2 code = 1975-2) Sodium (test code = 127 meq/L 136-145 L 2951-2) Potassium (test code = 4.1 meq/L 3.5-5.1 2823-3) Chloride (test code = 101 meq/L 98-107 2075-0) CO2 (test code = 21 meq/L 22-29 L 2028-9) BUN (test code = 38 mg/dL 7-21 H 3094-0) Creatinine (test code 6.38 mg/dL 0.57-1.25 H = 2160-0) Glucose (test code = 65 mg/dL 70-105 L 2345-7) Calcium (test code = 6.9 mg/dL 8.4-10.2 L 68611-5) AST (test code = 18 U/L 5-34 1920-8) ALT (test code = 10 U/L 6-55 1742-6) EGFR (test code = 8 mL/min/1.73 [place] [address]-2) NOT ACCURATE CREATININE CLEARANCE IN PREDICTING GLOMERULAR FILTRATION RATE . ESTIMATED GFR I S NOT APPLICABLE FOR DIALYSIS PATIENTS. HERBIE (test code = HERBIE) Financial Analyst Accountant ID - PIAYA L Lab Interpretation Abnormal (test code = 05097-9) [facility] [id number] 06:16:00 Test Item Value Reference Range Interpretation Comments TOTAL PROTEIN 14.0 gm/dL 6.0-8.3 H (BEAKER) (test code = 770) ALBUMIN (BEAKER) 2.6 g/dL 3.5-5.0 L (test code = 1145) ALKALINE PHOSPHATASE 43 U/L 40-150 (BEAKER) (test code = 346) BILIRUBIN TOTAL 0.4 mg/dL 0.2-1.2 (BEAKER) (test code = 377) SODIUM (BEAKER) (test 127 meq/L 136-145 L code = 381) POTASSIUM (BEAKER) 4.1 meq/L 3.5-5.1 (test code = 379) CHLORIDE (BEAKER) 101 meq/L 98-107 (test code = 382) CO2 (BEAKER) (test 21 meq/L 22-29 L code = 355) BLOOD UREA NITROGEN 38 mg/dL 7-21 H (BEAKER) (test code = 354) CREATININE (BEAKER) 6.38 mg/dL 0.57-1.25 H (test code = 358) GLUCOSE RANDOM 65 mg/dL 70-105 L (BEAKER) (test code = 652) CALCIUM (BEAKER) 6.9 mg/dL 8.4-10.2 L (test code = 697) AST (SGOT) (BEAKER) 18 U/L 5-34 (test code = 353) ALT (SGPT) (BEAKER) 10 U/L 6-55 (test code = 347) EGFR (BEAKER) (test 8 mL/min/1.73 ESTIMAT ED GFR IS code = 1092) sq m NOT ACCURATE CREATININE CLEARANCE IN PREDICTING GLOMERULAR FILTRATION RATE . ESTIMATED GFR I S NOT APPLICABLE FOR DIALYSIS PATIEN TS. Financial Analyst Accountant ID - PIMARGARITA [id number] 06:15:00 Test Item Value Reference Range Interpretation Comments MAGNESIUM (BEAKER) (test code = 1.8 mg/dL 1.6-2.6 627) Financial Analyst Accountant ID - PIMARGARITA [id number] 06:15:00 Test Item Value Reference Range Interpretation Comments PHOSPHORUS (BEAKER) (test code = 4.7 mg/dL 2.3-4.7 604) Financial Analyst Accountant ID - PIMARGARITA LCBC W/PLT COUNT & AUTO [id number] 05:58:00 Test Item Value Reference Range Interpretation Comments WHITE BLOOD CELL COUNT (BEAKER) 7.5 K/ L 3.5-10.5 (test code = 775) RED BLOOD CELL COUNT (BEAKER) 2.58 M/ L 3.93-5.22 L (test code = 761) HEMOGLOBIN (BEAKER) (test code = 7.1 GM/DL 11.2-15.7 L 410) HEMATOCRIT (BEAKER) (test code = 23.5 % 34.1-44.9 L 411) MEAN CORPUSCULAR VOLUME (BEAKER) 91.1 fL 79.4-94.8 (test code = 753) MEAN CORPUSCULAR HEMOGLOBIN 27.5 pg 25.6-32.2 (BEAKER) (test code = 751) MEAN CORPUSCULAR HEMOGLOBIN CONC 30.2 GM/DL 32.2-35.5 L (BEAKER) (test code = 752) RED CELL DISTRIBUTION WIDTH 18.5 % 11.7-14.4 H (BEAKER) (test code = 412) PLATELET COUNT (BEAKER) (test 190 K/CU MM 150-450 code = 756) MEAN PLATELET VOLUME (BEAKER) 10.4 fL 9.4-12.3 (test code = 754) NUCLEATED RED BLOOD CELLS 0 /100 WBC 0-0 (BEAKER) (test code = 413) NEUTROPHILS RELATIVE PERCENT 57 % (BEAKER) (test code = 429) LYMPHOCYTES RELATIVE PERCENT 37 % (BEAKER) (test code = 430) MONOCYTES RELATIVE PERCENT 5 % (BEAKER) (test code = 431) EOSINOPHILS RELATIVE PERCENT 0 % (BEAKER) (test code = 432) BASOPHILS RELATIVE PERCENT 1 % (BEAKER) (test code = 437) NEUTROPHILS ABSOLUTE COUNT 4.24 K/ L 1.56-6.13 (BEAKER) (test code = 670) LYMPHOCYTES ABSOLUTE COUNT 2.73 K/ L 1.18-3.74 (BEAKER) (test code = 414) MONOCYTES ABSOLUTE COUNT (BEAKER) 0.34 K/ L 0.24-0.36 (test code = 415) EOSINOPHILS ABSOLUTE COUNT 0.03 K/ L 0.04-0.36 L (BEAKER) (test code = 416) BASOPHILS ABSOLUTE COUNT (BEAKER) 0.04 K/ L 0.01-0.08 (test code = 417) IMMATURE GRANULOCYTES-RELATIVE 1 % 0-1 PERCENT (BEAKER) (test code = 2801) POCT-GLUCOSE [id number] 23:49:00 Test Item Value Reference Range Interpretation Comments POC-GLUCOSE METER 78 mg/dL 70-110 : TESTED Debbie T [facility] 6720 (BEAKER) (test code = [place], 1538) [address]: Financial Analyst Accountant/Techni kathryn ID = [id number] for JAN FARIAS POCT-GLUCOSE [id number] 16:46:00 Test Item Value Reference Range Interpretation Comments POC-GLUCOSE METER 84 mg/dL 70-110 : TESTED A T [facility] 6720 (BEAKER) (test code = [facility], 1538) 82701: Financial Analyst Accountant/Techni kathryn ID = [id number] for LEWI S, [place] POCT-GLUCOSE [id number] 12:08:00 Test Item Value Reference Range Interpretation Comments POC-GLUCOSE METER 77 mg/dL 70-110 : TESTED A T [facility] 6720 (BEAKER) (test code = [facility], 1538) 83024: Financial Analyst Accountant/Techni kathryn ID = [id number] for LEWI S, [place] POCT-GLUCOSE [id number] 07:54:00 Test Item Value Reference Range Interpretation Comments POC-GLUCOSE METER 83 mg/dL 70-110 : TESTED A T [facility] 6720 (BEAKER) (test code = [facility], 1538) 27087: Financial Analyst Accountant/Techni kathryn ID = [id number] for LEWI S, [place] COMPREHENSIVE METABOLIC [id number] 06:16:00 Test Item Value Reference Range Interpretation Comments TOTAL PROTEIN 14.2 gm/dL 6.0-8.3 H (BEAKER) (test code = 770) ALBUMIN (BEAKER) 2.6 g/dL 3.5-5.0 L (test code = 1145) ALKALINE PHOSPHATASE 40 U/L 40-150 (BEAKER) (test code = 346) BILIRUBIN TOTAL 0.4 mg/dL 0.2-1.2 (BEAKER) (test code = 377) SODIUM (BEAKER) (test 127 meq/L 136-145 L code = 381) POTASSIUM (BEAKER) 3.7 meq/L 3.5-5.1 (test code = 379) CHLORIDE (BEAKER) 100 meq/L 98-107 (test code = 382) CO2 (BEAKER) (test 24 meq/L 22-29 code = 355) BLOOD UREA NITROGEN 31 mg/dL 7-21 H (BEAKER) (test code = 354) CREATININE (BEAKER) 4.82 mg/dL 0.57-1.25 H (test code = 358) GLUCOSE RANDOM 88 mg/dL 70-105 (BEAKER) (test code = 652) CALCIUM (BEAKER) 7.0 mg/dL 8.4-10.2 L (test code = 697) AST (SGOT) (BEAKER) 17 U/L 5-34 (test code = 353) ALT (SGPT) (BEAKER) 11 U/L 6-55 (test code = 347) EGFR (BEAKER) (test 11 mL/min/1.73 ESTIMA NICOLE GFR IS code = 1092) sq m NOT ACCURATE CREATININE CLEARANCE IN PREDICTING GLOMERULAR FILTRATION RATE . ESTIMATED GFR I S NOT APPLICABLE FOR DIALYSIS PATIEN TS. [id number] 06:09:00 Test Item Value Reference Range Interpretation Comments MAGNESIUM (BEAKER) (test code = 1.8 mg/dL 1.6-2.6 627) [id number] 06:09:00 Test Item Value Reference Range Interpretation Comments PHOSPHORUS (BEAKER) (test code = 3.8 mg/dL 2.3-4.7 604) CBC W/PLT COUNT & AUTO [id number] 06:03:00 Test Item Value Reference Range Interpretation Comments WHITE BLOOD CELL COUNT (BEAKER) 8.4 K/ L 3.5-10.5 (test code = 775) RED BLOOD CELL COUNT (BEAKER) 2.74 M/ L 3.93-5.22 L (test code = 761) HEMOGLOBIN (BEAKER) (test code = 7.8 GM/DL 11.2-15.7 L 410) HEMATOCRIT (BEAKER) (test code = 25.1 % 34.1-44.9 L 411) MEAN CORPUSCULAR VOLUME (BEAKER) 91.6 fL 79.4-94.8 (test code = 753) MEAN CORPUSCULAR HEMOGLOBIN 28.5 pg 25.6-32.2 (BEAKER) (test code = 751) MEAN CORPUSCULAR HEMOGLOBIN CONC 31.1 GM/DL 32.2-35.5 L (BEAKER) (test code = 752) RED CELL DISTRIBUTION WIDTH 18.6 % 11.7-14.4 H (BEAKER) (test code = 412) PLATELET COUNT (BEAKER) (test 193 K/CU MM 150-450 code = 756) MEAN PLATELET VOLUME (BEAKER) 10.9 fL 9.4-12.3 (test code = 754) NUCLEATED RED BLOOD CELLS 0 /100 WBC 0-0 (BEAKER) (test code = 413) NEUTROPHILS RELATIVE PERCENT 64 % (BEAKER) (test code = 429) LYMPHOCYTES RELATIVE PERCENT 29 % (BEAKER) (test code = 430) MONOCYTES RELATIVE PERCENT 4 % (BEAKER) (test code = 431) EOSINOPHILS RELATIVE PERCENT 0 % (BEAKER) (test code = 432) BASOPHILS RELATIVE PERCENT 0 % (BEAKER) (test code = 437) NEUTROPHILS ABSOLUTE COUNT 5.36 K/ L 1.56-6.13 (BEAKER) (test code = 670) LYMPHOCYTES ABSOLUTE COUNT 2.45 K/ L 1.18-3.74 (BEAKER) (test code = 414) MONOCYTES ABSOLUTE COUNT (BEAKER) 0.35 K/ L 0.24-0.36 (test code = 415) EOSINOPHILS ABSOLUTE COUNT 0.00 K/ L 0.04-0.36 L (BEAKER) (test code = 416) BASOPHILS ABSOLUTE COUNT (BEAKER) 0.03 K/ L 0.01-0.08 (test code = 417) IMMATURE GRANULOCYTES-RELATIVE 2 % 0-1 H PERCENT (BEAKER) (test code = 2801) POCT-GLUCOSE [id number] 01:37:00 Test Item Value Reference Range Interpretation Comments POC-GLUCOSE METER 116 mg/dL 70-110 H : TESTED A T [facility] 6720 (BEAKER) (test code = [facility], 153) 30958: Financial Analyst Accountant/Techni kathryn ID = [id number] for ARCENIO LEVIHOA SUSANAPATRICIA SALGADO POCT-GLUCOSE [id number] 17:48:00 Test Item Value Reference Range Interpretation Comments POC-GLUCOSE METER 102 mg/dL 70-110 : TESTED A T [facility] 6720 (BEAKER) (test code = [facility], 153) 75221: Financial Analyst Accountant/Techni kathryn ID = [id number] for SHASHI GUTIERREZ POCT-GLUCOSE [id number] 11:22:00 Test Item Value Reference Range Interpretation Comments POC-GLUCOSE METER 75 mg/dL 70-110 : TESTED A T [facility] 6720 (BEAKER) (test code = [facility], 153) 43986: Financial Analyst Accountant/Techni kathryn ID = [id number] for STOJ CIC, NADA COMPREHENSIVE METABOLIC [id number] 07:38:00 Test Item Value Reference Range Interpretation Comments TOTAL PROTEIN 13.8 gm/dL 6.0-8.3 H (BEAKER) (test code = 770) ALBUMIN (BEAKER) 2.6 g/dL 3.5-5.0 L (test code = 1145) ALKALINE PHOSPHATASE 39 U/L 40-150 L (BEAKER) (test code = 346) BILIRUBIN TOTAL 0.4 mg/dL 0.2-1.2 (BEAKER) (test code = 377) SODIUM (BEAKER) (test 127 meq/L 136-145 L code = 381) POTASSIUM (BEAKER) 3.7 meq/L 3.5-5.1 (test code = 379) CHLORIDE (BEAKER) 100 meq/L 98-107 (test code = 382) CO2 (BEAKER) (test 25 meq/L 22-29 code = 355) BLOOD UREA NITROGEN 21 mg/dL 7-21 (BEAKER) (test code = 354) CREATININE (BEAKER) 3.38 mg/dL 0.57-1.25 H (test code = 358) GLUCOSE RANDOM 87 mg/dL 70-105 (BEAKER) (test code = 652) CALCIUM (BEAKER) 7.2 mg/dL 8.4-10.2 L (test code = 697) AST (SGOT) (BEAKER) 21 U/L 5-34 (test code = 353) ALT (SGPT) (BEAKER) 11 U/L 6-55 (test code = 347) EGFR (BEAKER) (test 16 mL/min/1.73 ESTIMA NICOLE GFR IS code = 1092) sq m NOT ACCURATE CREATININE CLEARANCE IN PREDICTING GLOMERULAR FILTRATION RATE . ESTIMATED GFR I S NOT APPLICABLE FOR DIALYSIS PATIEN TS. Financial Analyst Accountant ID - MJ CPOCT-GLUCOSE [id number] 07:37:00 Test Item Value Reference Range Interpretation Comments POC-GLUCOSE METER 89 mg/dL 70-110 : TESTED A T [facility] 6720 (BEAKER) (test code = [place], 1538) 70[address]: Financial Analyst Accountant/Techni kathryn ID = [id number] for WILL IAMS, EASTON [id number] 07:34:00 Test Item Value Reference Range Interpretation Comments PHOSPHORUS (BEAKER) (test code = 3.2 mg/dL 2.3-4.7 604) Financial Analyst Accountant ID - MJ [id number] 07:34:00 Test Item Value Reference Range Interpretation Comments MAGNESIUM (BEAKER) (test code = 1.7 mg/dL 1.6-2.6 627) Financial Analyst Accountant ID - MJ CCBC W/PLT COUNT & AUTO [id number] 07:09:00 Test Item Value Reference Range Interpretation Comments WHITE BLOOD CELL COUNT (BEAKER) 8.4 K/ L 3.5-10.5 (test code = 775) RED BLOOD CELL COUNT (BEAKER) 2.60 M/ L 3.93-5.22 L (test code = 761) HEMOGLOBIN (BEAKER) (test code = 7.2 GM/DL 11.2-15.7 L 410) HEMATOCRIT (BEAKER) (test code = 23.6 % 34.1-44.9 L 411) MEAN CORPUSCULAR VOLUME (BEAKER) 90.8 fL 79.4-94.8 (test code = 753) MEAN CORPUSCULAR HEMOGLOBIN 27.7 pg 25.6-32.2 (BEAKER) (test code = 751) MEAN CORPUSCULAR HEMOGLOBIN CONC 30.5 GM/DL 32.2-35.5 L (BEAKER) (test code = 752) RED CELL DISTRIBUTION WIDTH 18.6 % 11.7-14.4 H (BEAKER) (test code = 412) PLATELET COUNT (BEAKER) (test 191 K/CU MM 150-450 code = 756) MEAN PLATELET VOLUME (BEAKER) 10.3 fL 9.4-12.3 (test code = 754) NUCLEATED RED BLOOD CELLS 0 /100 WBC 0-0 (BEAKER) (test code = 413) NEUTROPHILS RELATIVE PERCENT 52 % (BEAKER) (test code = 429) LYMPHOCYTES RELATIVE PERCENT 38 % (BEAKER) (test code = 430) MONOCYTES RELATIVE PERCENT 6 % (BEAKER) (test code = 431) EOSINOPHILS RELATIVE PERCENT 1 % (BEAKER) (test code = 432) BASOPHILS RELATIVE PERCENT 1 % (BEAKER) (test code = 437) NEUTROPHILS ABSOLUTE COUNT 4.37 K/ L 1.56-6.13 (BEAKER) (test code = 670) LYMPHOCYTES ABSOLUTE COUNT 3.18 K/ L 1.18-3.74 (BEAKER) (test code = 414) MONOCYTES ABSOLUTE COUNT (BEAKER) 0.50 K/ L 0.24-0.36 H (test code = 415) EOSINOPHILS ABSOLUTE COUNT 0.06 K/ L 0.04-0.36 (BEAKER) (test code = 416) BASOPHILS ABSOLUTE COUNT (BEAKER) 0.08 K/ L 0.01-0.08 (test code = 417) IMMATURE GRANULOCYTES-RELATIVE 2 % 0-1 H PERCENT (BEAKER) (test code = 2801) POCT-GLUCOSE [id number] 01:04:00 Test Item Value Reference Range Interpretation Comments POC-GLUCOSE METER 80 mg/dL 70-110 : TESTED A T [facility] 6720 (BEAKER) (test code = [facility] [employer] [facility], 1538) 42730: Financial Analyst Accountant/Techni kathryn ID = [id number] for EASTON CONLEY POCT-GLUCOSE [id number] 18:05:00 Test Item Value Reference Range Interpretation Comments POC-GLUCOSE METER 69 mg/dL 70-110 L : TESTED A T [facility] 6720 (BEAKER) (test code = [employer] [place], 1538) 79548: Financial Analyst Accountant/Techni kathryn ID = [id number] for JUDSON [facility] [id number] 12:40:00Karo Escamilla RN 07/14/2020 1:03 PMHD set-up almost clotting mid-procedure, blood returned, rinsed and restarted with a new set-up. Patient was restless when awake during the procedure, tugs on her HD catheter and removing her gown, [facility]VA Bro during report that patient would benefit with a sitter to keep her ahoyDoc for her safety. Treatment fairly tolerated. Vital signs stable.HD duration 4 hours UF 1 L via right IJ tunneled HD catheter. Lab Results Component [...] BP: 101/64 Pulse: 92 Resp: 13 Temp: SpO2:[facility] ([place])2020-07-14 11:40:00 Test Item Value Reference Range Interpretation Comments IMMUNOGLOBULIN G (IGG) 9190 mg/dL 540-1,822 H (BEAKER) (test code = 427) IMMUNOGLOBULIN A (IGA) 26 mg/dL 63-484 L (BEAKER) (test code = 639) IMMUNOGLOBULIN M (IGM) 21 mg/dL 22-293 L (BEAKER) (test code = 638) SERUM VERÓNICA ID (BEAKER) IgG-kappa, (test code = 1814) monoclonal [id number] Jessy Camacho, (BEAKER) (test code = (electronic 2597) signature) Financial Analyst Accountant ID - MJ CImmunofixation electrophoresis (VERÓNICA)2020-07-14 10:18:00 Test Item Value Reference Range Interpretation Comments IgG (test code = 2465-3) 93965 mg/dL 540-1822 H IgA (test code = 2458-8) 20 mg/dL 63-484 L IgM (test code = 2464-6) 19 mg/dL 22-293 L Serum VER[place]NICA Identification IgG-kappa, (test code = 1814) monoclonal Pathologist: (test code = Jessy Camacho, 2597) (electronic signature) HERBIE (test code = HERBIE) Financial Analyst Accountant ID - MJ C Lab Interpretation (test Abnormal code = 73302-3) [facility]NICA)2020-07-14 10:18:00 Test Item Value Reference Range Interpretation Comments IMMUNOGLOBULIN G (IGG) 24039 mg/dL 540-1,822 H (BEAKER) (test code = 427) IMMUNOGLOBULIN A (IGA) 20 mg/dL 63-484 L (BEAKER) (test code = 639) IMMUNOGLOBULIN M (IGM) 19 mg/dL 22-293 L (BEAKER) (test code = 638) SERUM VER[place]NICA ID (BEAKER) IgG-kappa, (test code = 1814) monoclonal [id number] Jessy Camacho, (BEAKER) (test code = (electronic 2023) signature) Financial Analyst Accountant ID - MJ CCOMPREHENSIVE METABOLIC [id number] 08:59:00 Test Item Value Reference Range Interpretation Comments TOTAL PROTEIN 12.6 gm/dL 6.0-8.3 H (BEAKER) (test code = 770) ALBUMIN (BEAKER) 2.3 g/dL 3.5-5.0 L (test code = 1145) ALKALINE PHOSPHATASE 34 U/L 40-150 L (BEAKER) (test code = 346) BILIRUBIN TOTAL 0.5 mg/dL 0.2-1.2 (BEAKER) (test code = 377) SODIUM (BEAKER) (test 132 meq/L 136-145 L code = 381) POTASSIUM (BEAKER) 3.8 meq/L 3.5-5.1 (test code = 379) CHLORIDE (BEAKER) 102 meq/L 98-107 (test code = 382) CO2 (BEAKER) (test 26 meq/L 22-29 code = 355) BLOOD UREA NITROGEN 60 mg/dL 7-21 H (BEAKER) (test code = 354) CREATININE (BEAKER) 5.15 mg/dL 0.57-1.25 H (test code = 358) GLUCOSE RANDOM 91 mg/dL 70-105 (BEAKER) (test code = 652) CALCIUM (BEAKER) 6.8 mg/dL 8.4-10.2 L (test code = 697) AST (SGOT) (BEAKER) 27 U/L 5-34 (test code = 353) ALT (SGPT) (BEAKER) 9 U/L 6-55 (test code = 347) EGFR (BEAKER) (test 10 mL/min/1.73 ESTIMA NICOLE GFR IS code = 1092) sq m NOT ACCURATE CREATININE CLEARANCE IN PREDICTING GLOMERULAR FILTRATION RATE . ESTIMATED GFR I S NOT APPLICABLE FOR DIALYSIS PATIEN TS. Financial Analyst Accountant ID - PALAK [id number] 08:57:00 Test Item Value Reference Range Interpretation Comments PHOSPHORUS (BEAKER) (test code = 3.2 mg/dL 2.3-4.7 604) Financial Analyst Accountant ID - PALAK [id number] 08:57:00 Test Item Value Reference Range Interpretation Comments MAGNESIUM (BEAKER) (test code = 1.8 mg/dL 1.6-2.6 627) Financial Analyst Accountant ID - PALAK [facility] W/PLT COUNT & AUTO [id number] 08:44:00 Test Item Value Reference Range Interpretation Comments WHITE BLOOD CELL COUNT (BEAKER) 8.4 K/ L 3.5-10.5 (test code = 775) RED BLOOD CELL COUNT (BEAKER) 2.55 M/ L 3.93-5.22 L (test code = 761) HEMOGLOBIN (BEAKER) (test code = 7.1 GM/DL 11.2-15.7 L 410) HEMATOCRIT (BEAKER) (test code = 22.6 % 34.1-44.9 L 411) MEAN CORPUSCULAR VOLUME (BEAKER) 88.6 fL 79.4-94.8 (test code = 753) MEAN CORPUSCULAR HEMOGLOBIN 27.8 pg 25.6-32.2 (BEAKER) (test code = 751) MEAN CORPUSCULAR HEMOGLOBIN CONC 31.4 GM/DL 32.2-35.5 L (BEAKER) (test code = 752) RED CELL DISTRIBUTION WIDTH 18.5 % 11.7-14.4 H (BEAKER) (test code = 412) PLATELET COUNT (BEAKER) (test 216 K/CU MM 150-450 code = 756) MEAN PLATELET VOLUME (BEAKER) 11.2 fL 9.4-12.3 (test code = 754) NUCLEATED RED BLOOD CELLS 0 /100 WBC 0-0 (BEAKER) (test code = 413) NEUTROPHILS RELATIVE PERCENT 49 % (BEAKER) (test code = 429) LYMPHOCYTES RELATIVE PERCENT 41 % (BEAKER) (test code = 430) MONOCYTES RELATIVE PERCENT 7 % (BEAKER) (test code = 431) EOSINOPHILS RELATIVE PERCENT 0 % (BEAKER) (test code = 432) BASOPHILS RELATIVE PERCENT 1 % (BEAKER) (test code = 437) NEUTROPHILS ABSOLUTE COUNT 4.12 K/ L 1.56-6.13 (BEAKER) (test code = 670) LYMPHOCYTES ABSOLUTE COUNT 3.48 K/ L 1.18-3.74 (BEAKER) (test code = 414) MONOCYTES ABSOLUTE COUNT (BEAKER) 0.58 K/ L 0.24-0.36 H (test code = 415) EOSINOPHILS ABSOLUTE COUNT 0.03 K/ L 0.04-0.36 L (BEAKER) (test code = 416) BASOPHILS ABSOLUTE COUNT (BEAKER) 0.04 K/ L 0.01-0.08 (test code = 417) IMMATURE GRANULOCYTES-RELATIVE 2 % 0-1 H PERCENT (BEAKER) (test code = 2801) POCT-GLUCOSE [id number] 22:00:00 Test Item Value Reference Range Interpretation Comments POC-GLUCOSE METER 82 mg/dL 70-110 : TESTED A T [facility] 6720 (BEAKER) (test code = [facility], 1538) 59095: Financial Analyst Accountant/Techni kathryn ID = [id number] for DOBB INS, TESS POCT-GLUCOSE [id number] 17:40:00 Test Item Value Reference Range Interpretation Comments POC-GLUCOSE METER 103 mg/dL 70-110 : TESTED A T [facility] 6720 (BEAKER) (test code = [facility], 1538) 69371: Financial Analyst Accountant/Techni kathryn ID = [id number] for CARDOZA BLET, DOUG POCT-GLUCOSE [id number] 11:10:00 Test Item Value Reference Range Interpretation Comments POC-GLUCOSE METER 83 mg/dL 70-110 : TESTED A T [facility] 6720 (BEAKER) (test code = [facility], 1538) 59549: Financial Analyst Accountant/Techni kathryn ID = [id number] for SUBL ET, DOUG COMPREHENSIVE METABOLIC [id number] 06:35:00 Test Item Value Reference Range Interpretation Comments TOTAL PROTEIN 13.1 gm/dL 6.0-8.3 H Specimen sligh tly (BEAKER) (test code = hemoly zed 770) ALBUMIN (BEAKER) 2.4 g/dL 3.5-5.0 L Specimen sl ightly (test code = 1145) hemolyzed ALKALINE PHOSPHATASE 31 U/L 40-150 L (BEAKER) (test code = 346) BILIRUBIN TOTAL 0.4 mg/dL 0.2-1.2 Specimen sli ghtly (BEAKER) (test code = hemoly zed 377) SODIUM (BEAKER) (test 130 meq/L 136-145 L code = 381) POTASSIUM (BEAKER) 4.0 meq/L 3.5-5.1 Specimen slightly (test code = 379) hemolyzed CHLORIDE (BEAKER) 103 meq/L 98-107 (test code = 382) CO2 (BEAKER) (test 25 meq/L 22-29 code = 355) BLOOD UREA NITROGEN 41 mg/dL 7-21 H (BEAKER) (test code = 354) CREATININE (BEAKER) 3.40 mg/dL 0.57-1.25 H Specimen slightly (test code = 358) hemolyzed GLUCOSE RANDOM 91 mg/dL 70-105 (BEAKER) (test code = 652) CALCIUM (BEAKER) 6.9 mg/dL 8.4-10.2 L (test code = 697) AST (SGOT) (BEAKER) 23 U/L 5-34 Specimen slightly (test code = 353) hemolyzed ALT (SGPT) (BEAKER) 8 U/L 6-55 Specimen slightly (test code = 347) hemolyzed EGFR (BEAKER) (test 16 mL/min/1.73 ESTIMA NICOLE GFR IS code = 1092) sq m NOT ACCURATE CREATININE CLEARANCE IN PREDICTING GLOMERULAR FILTRATION RATE . ESTIMATED GFR I S NOT APPLICABLE FOR DIALYSIS PATIEN TS. Financial Analyst Accountant ID - PALAK [id number] 06:19:00 Test Item Value Reference Range Interpretation Comments MAGNESIUM (BEAKER) 1.7 mg/dL 1.6-2.6 Specimen slightly (test code = 627) hemolyzed Financial Analyst Accountant ID - PALAK [id number] 06:19:00 Test Item Value Reference Range Interpretation Comments PHOSPHORUS (BEAKER) 2.3 mg/dL 2.3-4.7 Specimen slightly (test code = 604) hemolyzed Financial Analyst Accountant ID - PALAK MCBC W/PLT COUNT & AUTO [id number] 05:31:00 Test Item Value Reference Range Interpretation Comments WHITE BLOOD CELL COUNT (BEAKER) 8.0 K/ L 3.5-10.5 (test code = 775) RED BLOOD CELL COUNT (BEAKER) 2.74 M/ L 3.93-5.22 L (test code = 761) HEMOGLOBIN (BEAKER) (test code = 7.6 GM/DL 11.2-15.7 L 410) HEMATOCRIT (BEAKER) (test code = 24.3 % 34.1-44.9 L 411) MEAN CORPUSCULAR VOLUME (BEAKER) 88.7 fL 79.4-94.8 (test code = 753) MEAN CORPUSCULAR HEMOGLOBIN 27.7 pg 25.6-32.2 (BEAKER) (test code = 751) MEAN CORPUSCULAR HEMOGLOBIN CONC 31.3 GM/DL 32.2-35.5 L (BEAKER) (test code = 752) RED CELL DISTRIBUTION WIDTH 18.5 % 11.7-14.4 H (BEAKER) (test code = 412) PLATELET COUNT (BEAKER) (test 214 K/CU MM 150-450 code = 756) MEAN PLATELET VOLUME (BEAKER) 12.0 fL 9.4-12.3 (test code = 754) NUCLEATED RED BLOOD CELLS 1 /100 WBC 0-0 H (BEAKER) (test code = 413) NEUTROPHILS RELATIVE PERCENT 54 % (BEAKER) (test code = 429) LYMPHOCYTES RELATIVE PERCENT 33 % (BEAKER) (test code = 430) MONOCYTES RELATIVE PERCENT 8 % (BEAKER) (test code = 431) EOSINOPHILS RELATIVE PERCENT 0 % (BEAKER) (test code = 432) BASOPHILS RELATIVE PERCENT 0 % (BEAKER) (test code = 437) NEUTROPHILS ABSOLUTE COUNT 4.35 K/ L 1.56-6.13 (BEAKER) (test code = 670) LYMPHOCYTES ABSOLUTE COUNT 2.62 K/ L 1.18-3.74 (BEAKER) (test code = 414) MONOCYTES ABSOLUTE COUNT (BEAKER) 0.65 K/ L 0.24-0.36 H (test code = 415) EOSINOPHILS ABSOLUTE COUNT 0.03 K/ L 0.04-0.36 L (BEAKER) (test code = 416) BASOPHILS ABSOLUTE COUNT (BEAKER) 0.03 K/ L 0.01-0.08 (test code = 417) IMMATURE GRANULOCYTES-RELATIVE 4 % 0-1 H PERCENT (BEAKER) (test code = 2801) POCT-GLUCOSE [id number] 23:06:00 Test Item Value Reference Range Interpretation Comments POC-GLUCOSE METER 94 mg/dL 70-110 : TESTED A T [facility] 6720 (BEAKER) (test code = [facility] [place], 1538) 92403: Financial Analyst Accountant/Techni kathryn ID = [id number] for SARMAD R, DENNY HEMODIALYSIS [id number] 18:40:14James Silverio RN 07/12/2020 6:43 PMTolerated and completed 3 hours and 30 minutes. No distressnoted, asymptomatic. Denies any discomfort and pain.UF fluid removed 1 liter, 1 unit PRBC givenPacked cvc port with heparin 5000 units/ml and secured line with blue caps, gauze and tape. Report given to Primary Nurse patient stable. Latest lab result:Lab Results Component Value Date WBC 7.3 07/12/2020 HGB 6.4 (L) 07/12/2020 HCT 20.9 (L) 07/12/2020 MCV 90.9 07/12/2020 PLT 238 07/12/2020 Lab Results Component Value Date GLUCOSE 95 07/12/2020 CALCIUM 6.5 (L) 07/12/2020 NA 128 (L) 07/12/2020 K3.7 07/12/2020 CO2 22 07/12/2020 CL 101 07/12/2020 BUN 85 (H) 07/12/2020 CREATININE 6.68 (H) 07/12/2020 James VILLAFUERTE, RN II7S6- Adult [id number] 6760[facility] [id number] 18:10:00 Test Item Value Reference Range Interpretation Comments POC-GLUCOSE METER 103 mg/dL 70-110 : TESTED A T [facility] 6720 (BEAKER) (test code = [facility], 1538) 87101: Financial Analyst Accountant/Techni kathryn ID = [id number] for James Enciso POCT-GLUCOSE [id number] 18:06:00 Test Item Value Reference Range Interpretation Comments POC-GLUCOSE METER 68 mg/dL 70-110 L : TESTED A T [facility] 6720 (BEAKER) (test code = [facility], 1538) 17461: Financial Analyst Accountant/Techni kathryn ID = [id number] for James Dockery Protein electrophoresis, [id number] 10:45:00 Test Item Value Reference Range Interpretation Comments Albumin Fraction (test 3.8 g/dL 3.5-5.5 code = 405) Alpha 1 Fraction (test 0.5 g/dL 0.2-0.4 H code = 389) Alpha 2 Fraction (test 1.4 g/dL 0.5-0.9 H code = 390) Beta Fraction (test code 1.5 g/dL 0.6-1.1 H = 392) Gamma Globulin Fraction 7.9 g/dL 0.7-1.7 H (test code = 391) Interpretation (test Previously reported code = 2615) monoclonal band present. No significant changes. Pathologist: (test code Jessy Camacho, = 2616) (electronic signature) Protein, Total (test 15.0 6.0- 8.3 gm/dL H code = 2660) HERBIE (test code = HERBIE) Financial Analyst Accountant ID - MOOSE F Lab Interpretation (test Abnormal code = 64134-0) [facility], [id number] 10:45:00 Test Item Value Reference Range Interpretation Comments ALBUMIN FRACTION 3.8 g/dL 3.5-5.5 (BEAKER) (test code = 405) ALPHA 1 FRACTION 0.5 g/dL 0.2-0.4 H (BEAKER) (test code = 389) ALPHA 2 FRACTION 1.4 g/dL 0.5-0.9 H (BEAKER) (test code = 390) BETA FRACTION 1.5 g/dL 0.6-1.1 H (BEAKER) (test code = 392) GAMMA GLOBULIN 7.9 g/dL 0.7-1.7 H FRACTION (BEAKER) (test code = 391) INTERPRETATION-119 Previously reported (BEAKER) (test code = monoclonal band present. 2615) No significant changes. [id number] Jessy Camacho MD (BEAKER) (test code = (electronic signature) 2616) PROTEIN TOTAL SERUM, 15.0 gm/dL 6.0-8.3 H SPEP (BEAKER) (test code = 2660) Financial Analyst Accountant ID - MOOSE FType and [id number] 07:56:00 Test Item Value Reference Range Interpretation Comments Ab Scrn (test code = 890-4) NEGATIVE PEG ABO Grouping (test code = 2588) B Rh Factor (test code = 2589) POS [facility] [id number] 07:41:00 Test Item Value Reference Range Interpretation Comments POC-GLUCOSE METER 77 mg/dL 70-110 : TESTED A T [facility] 6720 (BEAKER) (test code = [facility] [place], 1538) 22493: Financial Analyst Accountant/Techni kathryn ID = [id number] for CORBIN LAINEZ [id number] 05:03:00 Test Item Value Reference Range Interpretation Comments PHOSPHORUS (BEAKER) (test code = 3.1 mg/dL 2.3-4.7 604) Financial Analyst Accountant ID - [id number] 05:03:00 Test Item Value Reference Range Interpretation Comments MAGNESIUM (BEAKER) (test code = 1.8 mg/dL 1.6-2.6 627) Financial Analyst Accountant ID - EDASICOMPREHENSIVE METABOLIC [id number] 05:03:00 Test Item Value Reference Range Interpretation Comments TOTAL PROTEIN 13.1 gm/dL 6.0-8.3 H (BEAKER) (test code = 770) ALBUMIN (BEAKER) 2.4 g/dL 3.5-5.0 L (test code = 1145) ALKALINE PHOSPHATASE 29 U/L 40-150 L (BEAKER) (test code = 346) BILIRUBIN TOTAL 0.4 mg/dL 0.2-1.2 (BEAKER) (test code = 377) SODIUM (BEAKER) (test 128 meq/L 136-145 L code = 381) POTASSIUM (BEAKER) 3.7 meq/L 3.5-5.1 (test code = 379) CHLORIDE (BEAKER) 101 meq/L 98-107 (test code = 382) CO2 (BEAKER) (test 22 meq/L 22-29 code = 355) BLOOD UREA NITROGEN 85 mg/dL 7-21 H (BEAKER) (test code = 354) CREATININE (BEAKER) 6.68 mg/dL 0.57-1.25 H (test code = 358) GLUCOSE RANDOM 95 mg/dL 70-105 (BEAKER) (test code = 652) CALCIUM (BEAKER) 6.5 mg/dL 8.4-10.2 L (test code = 697) AST (SGOT) (BEAKER) 21 U/L 5-34 (test code = 353) ALT (SGPT) (BEAKER) 7 U/L 6-55 (test code = 347) EGFR (BEAKER) (test 7 mL/min/1.73 ESTIMAT ED GFR IS code = 1092) sq m NOT ACCURATE CREATININE CLEARANCE IN PREDICTING GLOMERULAR FILTRATION RATE . ESTIMATED GFR I S NOT APPLICABLE FOR DIALYSIS PATIEN TS. Financial Analyst Accountant ID - EDASICBC W/PLT COUNT & AUTO [id number] 04:47:00 Test Item Value Reference Range Interpretation Comments WHITE BLOOD CELL COUNT (BEAKER) 7.3 K/ L 3.5-10.5 (test code = 775) RED BLOOD CELL COUNT (BEAKER) 2.30 M/ L 3.93-5.22 L (test code = 761) HEMOGLOBIN (BEAKER) (test code = 6.4 GM/DL 11.2-15.7 L 410) HEMATOCRIT (BEAKER) (test code = 20.9 % 34.1-44.9 L 411) MEAN CORPUSCULAR VOLUME (BEAKER) 90.9 fL 79.4-94.8 (test code = 753) MEAN CORPUSCULAR HEMOGLOBIN 27.8 pg 25.6-32.2 (BEAKER) (test code = 751) MEAN CORPUSCULAR HEMOGLOBIN CONC 30.6 GM/DL 32.2-35.5 L (BEAKER) (test code = 752) RED CELL DISTRIBUTION WIDTH 17.9 % 11.7-14.4 H (BEAKER) (test code = 412) PLATELET COUNT (BEAKER) (test 238 K/CU MM 150-450 code = 756) MEAN PLATELET VOLUME (BEAKER) 11.8 fL 9.4-12.3 (test code = 754) NUCLEATED RED BLOOD CELLS 1 /100 WBC 0-0 H (BEAKER) (test code = 413) NEUTROPHILS RELATIVE PERCENT 60 % (BEAKER) (test code = 429) LYMPHOCYTES RELATIVE PERCENT 32 % (BEAKER) (test code = 430) MONOCYTES RELATIVE PERCENT 6 % (BEAKER) (test code = 431) EOSINOPHILS RELATIVE PERCENT 0 % (BEAKER) (test code = 432) BASOPHILS RELATIVE PERCENT 0 % (BEAKER) (test code = 437) NEUTROPHILS ABSOLUTE COUNT 4.36 K/ L 1.56-6.13 (BEAKER) (test code = 670) LYMPHOCYTES ABSOLUTE COUNT 2.33 K/ L 1.18-3.74 (BEAKER) (test code = 414) MONOCYTES ABSOLUTE COUNT (BEAKER) 0.45 K/ L 0.24-0.36 H (test code = 415) EOSINOPHILS ABSOLUTE COUNT 0.01 K/ L 0.04-0.36 L (BEAKER) (test code = 416) BASOPHILS ABSOLUTE COUNT (BEAKER) 0.01 K/ L 0.01-0.08 (test code = 417) IMMATURE GRANULOCYTES-RELATIVE 1 % 0-1 PERCENT (BEAKER) (test code = 2801) POCT-GLUCOSE [id number] 20:42:00 Test Item Value Reference Range Interpretation Comments POC-GLUCOSE METER 97 mg/dL 70-110 : TESTED A T [facility] 6720 (BEAKER) (test code = [facility], 1538) 17940: Financial Analyst Accountant/Techni kathryn ID = [id number] for JAN FARIAS POCT-GLUCOSE [id number] 16:41:00 Test Item Value Reference Range Interpretation Comments POC-GLUCOSE METER 92 mg/dL 70-110 : TESTED A T [facility] 6720 (BEAKER) (test code = [facility], 1538) 79574: Financial Analyst Accountant/Techni kathryn ID = [id number] for TEO PRUITT POCT-GLUCOSE [id number] 11:47:00 Test Item Value Reference Range Interpretation Comments POC-GLUCOSE METER 117 mg/dL 70-110 H : [facility] (test code = [facility], 1538) 99907: Financial Analyst Accountant/Techni kathryn ID = [id number] for CASSIDY LOPEZ IMMUNOGLOBULIN G (IGG)2020-07-11 08:11:00 Test Item Value Reference Range Interpretation Comments IMMUNOGLOBULIN G (IGG) (BEAKER) 11269 mg/dL 540-1,822 H (test code = 427) Financial Analyst Accountant ID - MOOSE FCOMPREHENSIVE METABOLIC [id number] 06:54:00 Test Item Value Reference Range Interpretation Comments TOTAL PROTEIN 15.2 gm/dL 6.0-8.3 H (BEAKER) (test code = 770) ALBUMIN (BEAKER) 2.8 g/dL 3.5-5.0 L (test code = 1145) ALKALINE PHOSPHATASE 38 U/L 40-150 L (BEAKER) (test code = 346) BILIRUBIN TOTAL 0.4 mg/dL 0.2-1.2 (BEAKER) (test code = 377) SODIUM (BEAKER) (test 128 meq/L 136-145 L code = 381) POTASSIUM (BEAKER) 3.4 meq/L 3.5-5.1 L (test code = 379) CHLORIDE (BEAKER) 101 meq/L 98-107 (test code = 382) CO2 (BEAKER) (test 22 meq/L 22-29 code = 355) BLOOD UREA NITROGEN 63 mg/dL 7-21 H (BEAKER) (test code = 354) CREATININE (BEAKER) 5.74 mg/dL 0.57-1.25 H (test code = 358) GLUCOSE RANDOM 128 mg/dL 70-105 H (BEAKER) (test code = 652) CALCIUM (BEAKER) 6.8 mg/dL 8.4-10.2 L (test code = 697) AST (SGOT) (BEAKER) 19 U/L 5-34 (test code = 353) ALT (SGPT) (BEAKER) 8 U/L 6-55 (test code = 347) EGFR (BEAKER) (test 9 mL/min/1.73 ESTIMAT ED GFR IS code = 1092) sq m NOT ACCURATE CREATININE CLEARANCE IN PREDICTING GLOMERULAR FILTRATION RATE . ESTIMATED GFR I S NOT APPLICABLE FOR DIALYSIS PATIEN TS. Financial Analyst Accountant ID Shani MOOSE [id number] 06:52:00 Test Item Value Reference Range Interpretation Comments PHOSPHORUS (BEAKER) (test code = 2.4 mg/dL 2.3-4.7 604) Financial Analyst Accountant ID Shani MOOSE [id number] 06:52:00 Test Item Value Reference Range Interpretation Comments MAGNESIUM (BEAKER) (test code = 1.8 mg/dL 1.6-2.6 627) Financial Analyst Accountant ID Shani MOOSE FCBC W/PLT COUNT & AUTO [id number] 06:42:00 Test Item Value Reference Range Interpretation Comments WHITE BLOOD CELL COUNT (BEAKER) 8.7 K/ L 3.5-10.5 (test code = 775) RED BLOOD CELL COUNT (BEAKER) 2.48 M/ L 3.93-5.22 L (test code = 761) HEMOGLOBIN (BEAKER) (test code = 7.0 GM/DL 11.2-15.7 L 410) HEMATOCRIT (BEAKER) (test code = 22.7 % 34.1-44.9 L 411) MEAN CORPUSCULAR VOLUME (BEAKER) 91.5 fL 79.4-94.8 (test code = 753) MEAN CORPUSCULAR HEMOGLOBIN 28.2 pg 25.6-32.2 (BEAKER) (test code = 751) MEAN CORPUSCULAR HEMOGLOBIN CONC 30.8 GM/DL 32.2-35.5 L (BEAKER) (test code = 752) RED CELL DISTRIBUTION WIDTH 18.0 % 11.7-14.4 H (BEAKER) (test code = 412) PLATELET COUNT (BEAKER) (test 259 K/CU MM 150-450 code = 756) MEAN PLATELET VOLUME (BEAKER) 11.9 fL 9.4-12.3 (test code = 754) NUCLEATED RED BLOOD CELLS 2 /100 WBC 0-0 H (BEAKER) (test code = 413) NEUTROPHILS RELATIVE PERCENT 69 % (BEAKER) (test code = 429) LYMPHOCYTES RELATIVE PERCENT 18 % (BEAKER) (test code = 430) MONOCYTES RELATIVE PERCENT 11 % (BEAKER) (test code = 431) EOSINOPHILS RELATIVE PERCENT 0 % (BEAKER) (test code = 432) BASOPHILS RELATIVE PERCENT 0 % (BEAKER) (test code = 437) NEUTROPHILS ABSOLUTE COUNT 6.01 K/ L 1.56-6.13 (BEAKER) (test code = 670) LYMPHOCYTES ABSOLUTE COUNT 1.55 K/ L 1.18-3.74 (BEAKER) (test code = 414) MONOCYTES ABSOLUTE COUNT (BEAKER) 0.99 K/ L 0.24-0.36 H (test code = 415) EOSINOPHILS ABSOLUTE COUNT 0.00 K/ L 0.04-0.36 L (BEAKER) (test code = 416) BASOPHILS ABSOLUTE COUNT (BEAKER) 0.00 K/ L 0.01-0.08 L (test code = 417) IMMATURE GRANULOCYTES-RELATIVE 1 % 0-1 PERCENT (BEAKER) (test code = 2801) POCT-GLUCOSE [id number] 05:47:00 Test Item Value Reference Range Interpretation Comments POC-GLUCOSE METER 130 mg/dL 70-110 H : TESTED Debbie Lewis [facility] 6720 (BEAKER) (test code = [facility] [place], 1538) 50514: Financial Analyst Accountant/Techni kathryn ID = [id number] for JAN VIGIL POCT-GLUCOSE [id number] 23:28:00 Test Item Value Reference Range Interpretation Comments POC-GLUCOSE METER 125 mg/dL 70-110 H : TESTED A T [facility] 6720 (BEAKER) (test code = [facility], 1538) 85092: Financial Analyst Accountant/Techni kathryn ID = [id number] for JAN VIGIL POCT-GLUCOSE [id number] 16:56:00 Test Item Value Reference Range Interpretation Comments POC-GLUCOSE METER 164 mg/dL 70-110 H : TESTED A T [facility] 6720 (BEAKER) (test code = [facility], 1538) 75218: Financial Analyst Accountant/Techni kathryn ID = [id number] for IRASEMA CARDOZA POCT-GLUCOSE [id number] 12:02:00 Test Item Value Reference Range Interpretation Comments POC-GLUCOSE METER 138 mg/dL 70-110 H : TESTED A T [facility] 6720 (BEAKER) (test code [facility], = 1538) 47333: Financial Analyst Accountant/Techni kathryn ID = [id number] for MEGAN SJETHRO COMPREHENSIVE METABOLIC [id number] 07:11:00 Test Item Value Reference Range Interpretation Comments TOTAL PROTEIN 15.1 gm/dL 6.0-8.3 H (BEAKER) (test code = 770) ALBUMIN (BEAKER) 2.7 g/dL 3.5-5.0 L (test code = 1145) ALKALINE PHOSPHATASE 38 U/L 40-150 L (BEAKER) (test code = 346) BILIRUBIN TOTAL 0.3 mg/dL 0.2-1.2 (BEAKER) (test code = 377) SODIUM (BEAKER) (test 127 meq/L 136-145 L code = 381) POTASSIUM (BEAKER) 3.6 meq/L 3.5-5.1 (test code = 379) CHLORIDE (BEAKER) 102 meq/L 98-107 (test code = 382) CO2 (BEAKER) (test 23 meq/L 22-29 code = 355) BLOOD UREA NITROGEN 34 mg/dL 7-21 H (BEAKER) (test code = 354) CREATININE (BEAKER) 4.12 mg/dL 0.57-1.25 H (test code = 358) GLUCOSE RANDOM 143 mg/dL 70-105 H (BEAKER) (test code = 652) CALCIUM (BEAKER) 6.9 mg/dL 8.4-10.2 L (test code = 697) AST (SGOT) (BEAKER) 16 U/L 5-34 (test code = 353) ALT (SGPT) (BEAKER) 6 U/L 6-55 (test code = 347) EGFR (BEAKER) (test 13 mL/min/1.73 ESTIMA NICOLE GFR IS code = 1092) sq m NOT ACCURATE CREATININE CLEARANCE IN PREDICTING GLOMERULAR FILTRATION RATE . ESTIMATED GFR I S NOT APPLICABLE FOR DIALYSIS PATIEN TS. Financial Analyst Accountant ID - [id number] 06:36:00 Test Item Value Reference Range Interpretation Comments PHOSPHORUS (BEAKER) (test code = 2.7 mg/dL 2.3-4.7 604) Financial Analyst Accountant ID - [id number] 06:36:00 Test Item Value Reference Range Interpretation Comments MAGNESIUM (BEAKER) (test code = 1.7 mg/dL 1.6-2.6 627) Financial Analyst Accountant ID - EDASICBC W/PLT COUNT & AUTO [id number] 06:34:00 Test Item Value Reference Range Interpretation Comments WHITE BLOOD CELL COUNT (BEAKER) 8.1 K/ L 3.5-10.5 (test code = 775) RED BLOOD CELL COUNT (BEAKER) 2.56 M/ L 3.93-5.22 L (test code = 761) HEMOGLOBIN (BEAKER) (test code = 7.1 GM/DL 11.2-15.7 L 410) HEMATOCRIT (BEAKER) (test code = 23.6 % 34.1-44.9 L 411) MEAN CORPUSCULAR VOLUME (BEAKER) 92.2 fL 79.4-94.8 (test code = 753) MEAN CORPUSCULAR HEMOGLOBIN 27.7 pg 25.6-32.2 (BEAKER) (test code = 751) MEAN CORPUSCULAR HEMOGLOBIN CONC 30.1 GM/DL 32.2-35.5 L (BEAKER) (test code = 752) RED CELL DISTRIBUTION WIDTH 18.3 % 11.7-14.4 H (BEAKER) (test code = 412) PLATELET COUNT (BEAKER) (test 206 K/CU MM 150-450 code = 756) MEAN PLATELET VOLUME (BEAKER) 11.0 fL 9.4-12.3 (test code = 754) NUCLEATED RED BLOOD CELLS 2 /100 WBC 0-0 H (BEAKER) (test code = 413) NEUTROPHILS RELATIVE PERCENT 61 % (BEAKER) (test code = 429) LYMPHOCYTES RELATIVE PERCENT 27 % (BEAKER) (test code = 430) MONOCYTES RELATIVE PERCENT 11 % (BEAKER) (test code = 431) EOSINOPHILS RELATIVE PERCENT 0 % (BEAKER) (test code = 432) BASOPHILS RELATIVE PERCENT 0 % (BEAKER) (test code = 437) NEUTROPHILS ABSOLUTE COUNT 4.91 K/ L 1.56-6.13 (BEAKER) (test code = 670) LYMPHOCYTES ABSOLUTE COUNT 2.15 K/ L 1.18-3.74 (BEAKER) (test code = 414) MONOCYTES ABSOLUTE COUNT (BEAKER) 0.85 K/ L 0.24-0.36 H (test code = 415) EOSINOPHILS ABSOLUTE COUNT 0.00 K/ L 0.04-0.36 L (BEAKER) (test code = 416) BASOPHILS ABSOLUTE COUNT (BEAKER) 0.01 K/ L 0.01-0.08 (test code = 417) IMMATURE GRANULOCYTES-RELATIVE 2 % 0-1 H PERCENT (BEAKER) (test code = 2801) POCT-GLUCOSE [id number] 05:25:00 Test Item Value Reference Range Interpretation Comments POC-GLUCOSE METER 143 mg/dL 70-110 H : TESTED A T [facility] 6720 (BEAKER) (test code = [facility] [place]) [id number]: Financial Analyst Accountant/Techni kathryn ID = [id number] for [facility], [place] POCT-GLUCOSE [id number] 23:27:00 Test Item Value Reference Range Interpretation Comments POC-GLUCOSE METER 165 mg/dL 70-110 H : TESTED A T [facility] 6720 (BEAKER) (test code = [facility], 1538) [id number]: Financial Analyst Accountant/Techni kathryn ID = [id number] for [facility], [place] POCT-GLUCOSE [id number] 17:17:00 Test Item Value Reference Range Interpretation Comments POC-GLUCOSE METER 121 mg/dL 70-110 H : TESTED A T [facility] 6720 (BEAKER) (test code = [facility], 1538) [address]: Financial Analyst Accountant/Techni kathryn ID = [id number] for [facility] [employer] [employer] [id number] 06:13:00 Test Item Value Reference Range Interpretation Comments TOTAL PROTEIN 15.2 gm/dL 6.0-8.3 H (BEAKER) (test code = 770) ALBUMIN (BEAKER) 2.8 g/dL 3.5-5.0 L (test code = 1145) ALKALINE PHOSPHATASE 31 U/L 40-150 L (BEAKER) (test code = 346) BILIRUBIN TOTAL 0.3 mg/dL 0.2-1.2 (BEAKER) (test code = 377) SODIUM (BEAKER) (test 130 meq/L 136-145 L code = 381) POTASSIUM (BEAKER) 3.9 meq/L 3.5-5.1 (test code = 379) CHLORIDE (BEAKER) 103 meq/L 98-107 (test code = 382) CO2 (BEAKER) (test 18 meq/L 22-29 L code = 355) BLOOD UREA NITROGEN 74 mg/dL 7-21 H (BEAKER) (test code = 354) CREATININE (BEAKER) 6.94 mg/dL 0.57-1.25 H (test code = 358) GLUCOSE RANDOM 126 mg/dL 70-105 H (BEAKER) (test code = 652) CALCIUM (BEAKER) 6.4 mg/dL 8.4-10.2 L (test code = 697) AST (SGOT) (BEAKER) 16 U/L 5-34 (test code = 353) ALT (SGPT) (BEAKER) < U/L 6-55 L (test code = 347) EGFR (BEAKER) (test 7 mL/min/1.73 ESTIMAT ED GFR IS code = 1092) sq m NOT ACCURATE CREATININE CLEARANCE IN PREDICTING GLOMERULAR FILTRATION RATE . ESTIMATED GFR I S NOT APPLICABLE FOR DIALYSIS PATIEN TS. Financial Analyst Accountant ID - PIAYA LPOCT-GLUCOSE [id number] 06:05:00 Test Item Value Reference Range Interpretation Comments POC-GLUCOSE METER 118 mg/dL 70-110 H : TESTED A T [facility] 6720 (BEAKER) (test code = [facility] [place], 1538) [id number]: Financial Analyst Accountant/Techni kathryn ID = [id number] for DO BBINS, TESS [id number] 05:42:00 Test Item Value Reference Range Interpretation Comments PHOSPHORUS (BEAKER) (test code = 5.2 mg/dL 2.3-4.7 H 604) Financial Analyst Accountant ID Shani POWELL [id number] 05:42:00 Test Item Value Reference Range Interpretation Comments MAGNESIUM (BEAKER) (test code = 1.9 mg/dL 1.6-2.6 627) Financial Analyst Accountant ID Shani POWELL LCBC W/PLT COUNT & AUTO [id number] 05:20:00 Test Item Value Reference Range Interpretation Comments WHITE BLOOD CELL COUNT (BEAKER) 9.1 K/ L 3.5-10.5 (test code = 775) RED BLOOD CELL COUNT (BEAKER) 2.76 M/ L 3.93-5.22 L (test code = 761) HEMOGLOBIN (BEAKER) (test code = 7.7 GM/DL 11.2-15.7 L 410) HEMATOCRIT (BEAKER) (test code = 25.0 % 34.1-44.9 L 411) MEAN CORPUSCULAR VOLUME (BEAKER) 90.6 fL 79.4-94.8 (test code = 753) MEAN CORPUSCULAR HEMOGLOBIN 27.9 pg 25.6-32.2 (BEAKER) (test code = 751) MEAN CORPUSCULAR HEMOGLOBIN CONC 30.8 GM/DL 32.2-35.5 L (BEAKER) (test code = 752) RED CELL DISTRIBUTION WIDTH 18.4 % 11.7-14.4 H (BEAKER) (test code = 412) PLATELET COUNT (BEAKER) (test 202 K/CU MM 150-450 code = 756) MEAN PLATELET VOLUME (BEAKER) 10.0 fL 9.4-12.3 (test code = 754) NUCLEATED RED BLOOD CELLS 1 /100 WBC 0-0 H (BEAKER) (test code = 413) NEUTROPHILS RELATIVE PERCENT 70 % (BEAKER) (test code = 429) LYMPHOCYTES RELATIVE PERCENT 18 % (BEAKER) (test code = 430) MONOCYTES RELATIVE PERCENT 11 % (BEAKER) (test code = 431) EOSINOPHILS RELATIVE PERCENT 0 % (BEAKER) (test code = 432) BASOPHILS RELATIVE PERCENT 0 % (BEAKER) (test code = 437) NEUTROPHILS ABSOLUTE COUNT 6.36 K/ L 1.56-6.13 H (BEAKER) (test code = 670) LYMPHOCYTES ABSOLUTE COUNT 1.62 K/ L 1.18-3.74 (BEAKER) (test code = 414) MONOCYTES ABSOLUTE COUNT (BEAKER) 0.98 K/ L 0.24-0.36 H (test code = 415) EOSINOPHILS ABSOLUTE COUNT 0.00 K/ L 0.04-0.36 L (BEAKER) (test code = 416) BASOPHILS ABSOLUTE COUNT (BEAKER) 0.01 K/ L 0.01-0.08 (test code = 417) IMMATURE GRANULOCYTES-RELATIVE 2 % 0-1 H PERCENT (BEAKER) (test code = 2801) POCT-GLUCOSE [id number] 22:07:00 Test Item Value Reference Range Interpretation Comments POC-GLUCOSE METER 132 mg/dL 70-110 H : TESTED A T [facility] 6720 (BEAKER) (test code = CARLO Lin [facility], 1538) 79[address]: Financial Analyst Accountant/Techni kathryn ID = [id number] for DO TESS CRAMER Blood Culture - Routine (Left Venipuncture)2020-07-08 20:00:00 Test Item Value Reference Range Interpretation Comments Result (test code = No growth in 5 days 6463-4) [id number] 20:00:00 Test Item Value Reference Range Interpretation Comments CULTURE (BEAKER) (test No growth in 5 days code = 1095) BLOOD [id number] 20:00:00 Test Item Value Reference Range Interpretation Comments CULTURE (BEAKER) (test No growth in 5 days code = 1095) RAD, ABDOMEN/KUB, 1 VIEW [id number] 17:42:00Reason for exam:->cortrak verificationFINAL REPORT Abdomen x-ray Clinical Diagnosis: Corpak verificationComparison:07/06/2020Views: Two supine views of the abdomen obtained IMPRESSION: Feeding tube identified coursing below the diaphragm with distal tip terminating within the right mid abdomen within the expected location of the duodenum. Suspected guidewire noted within the lumen of the feeding tube. Bowel gas pattern is nonspecific but appears nonobstructive. Suspected phleboliths noted within the pelvis. Stablescoliosis and degenerative changes noted of the thoracolumbar spine. No acute osseous abnormality is identified. Signed: Rakesh Doe MDReport Verified Date/Time: 07/08/2020 17:42:18 Reading Location: [facility] C013 Consult Reading Room XR abdomen / KUB 1 view 2020-07-08 17:42:00Interface, External Ris In - 07/08/2020 5:44 PM CDTFINAL REPORT Abdomen x-ray Clinical Diagnosis: Corpak verificationComparison: 07/06/2020Views: Two supine views of the abdomen obtained IMPRESSION: Feeding tube identified coursing below the diaphragm with distal tip terminatingwithin the right mid abdomen within the expected location of the duodenum. Suspected guidewire notedwithin the lumen of the feeding tube. Bowel gas pattern is nonspecific but appears nonobstructive. Suspected phleboliths noted within the pelvis. Stable scoliosis and degenerative changes noted of the thoracolumbar spine. No acute osseous abnormality is identified. Signed: Rakesh Doe MDReport Verified Date/Time: 07/08/2020 17:42:18 Reading Location: [facility] C013 Consult Reading Room [facility] [id number] 17:27:00 Test Item Value Reference Range Interpretation Comments POC-GLUCOSE METER 131 mg/dL 70-110 H : TESTED A T [facility] 6720 ([place]) (test code = [employer] [facility], 1538) 08135: Financial Analyst Accountant/Techni kathryn ID = [id number] for CARDOZA BLET, DOUG POCT-GLUCOSE [id number] 11:48:00 Test Item Value Reference Range Interpretation Comments POC-GLUCOSE METER 91 mg/dL 70-110 : TESTED A T [facility] 6720 ([place]) (test code = [employer] [facility], 1538) 67651: Financial Analyst Accountant/Techni kathryn ID = [id number] for SUBL ET, DOUG MR, BRAIN, WITHOUT [id number] 10:39:00Unlisted Reason for Exam - Click Yes and Enter Reason Below->NoFINAL REPORT MR, BRAIN, WITHOUT CONTRAST INDICATION: Altered mental status TECHNIQUE: Multiplanar, multisequence MR imaging of the brain without intravenous contrast. COMPARISON: None FINDINGS: There is no restricted diffusion. Mild chronic white matter disease bilaterally. There is no mass effect or abnormal extra-axial fluid. The ventricles are normal in size and configuration. The larger intracranial vascular flow-voids are preserved. Paranasal sinuses and mastoid air cells are clear. There is normal bone marrow signal intensity within the calvarium and skull base. IMPRESSION: Mild age-related changes. No recent infarct or hemorrhage. Signed: JR Hanson Robert MDReport Verified Date/Time: 07/08/2020 10:39:36 Reading Location: [address] Neuro Reading Room E lectronically signed by: YOANDY HANSON on 07/08/2020 10:39 AMMR brain without IV [id number] 10:39:00Interface, External Ris In - 07/08/2020 10:41 AM CDTFINAL REPORT MR, BRAIN, WITHOUT CONTRAST INDICATION: Altered mental status TECHNIQUE: Multiplanar, multisequence MR imaging ofthe brain without intravenous contrast. COMPARISON: None FINDINGS: There is no restricted diffusion. Mild chronic white matter disease bilaterally. There is no mass effect or abnormal extra-axial fluid. The ventricles are normal in size and configuration. The larger intracranial vascular flow-voids are preserved. Paranasal sinuses and mastoid air cells are clear. There is normal bone marrow signal intensity within the calvarium and skull base. IMPRESSION: Mild age-related changes. No recent infarct or hemorrhage. Signed: JR Hanson Robert MDReport Verified Date/Time: 07/08/2020 10:39:36 Reading Location: [address] Neuro Reading [facility] [id number] 06:10:00 Test Item Value Reference Range Interpretation Comments POC-GLUCOSE METER 96 mg/dL 70-110 : TESTED A T [facility] 6720 (BEAKER) (test code = CARLO [place], 1538) [address]: Financial Analyst Accountant/Techni kathryn ID = [id number] for SARMAD R, DENNY COMPREHENSIVE METABOLIC [id number] 05:50:00 Test Item Value Reference Range Interpretation Comments TOTAL PROTEIN 15.6 gm/dL 6.0-8.3 H (BEAKER) (test code = 770) ALBUMIN (BEAKER) 2.8 g/dL 3.5-5.0 L (test code = 1145) ALKALINE PHOSPHATASE 32 U/L 40-150 L (BEAKER) (test code = 346) BILIRUBIN TOTAL 0.7 mg/dL 0.2-1.2 (BEAKER) (test code = 377) SODIUM (BEAKER) (test 130 meq/L 136-145 L code = 381) POTASSIUM (BEAKER) 4.3 meq/L 3.5-5.1 (test code = 379) CHLORIDE (BEAKER) 102 meq/L 98-107 (test code = 382) CO2 (BEAKER) (test 21 meq/L 22-29 L code = 355) BLOOD UREA NITROGEN 45 mg/dL 7-21 H (BEAKER) (test code = 354) CREATININE (BEAKER) 5.32 mg/dL 0.57-1.25 H (test code = 358) GLUCOSE RANDOM 105 mg/dL 70-105 (BEAKER) (test code = 652) CALCIUM (BEAKER) 6.6 mg/dL 8.4-10.2 L (test code = 697) AST (SGOT) (BEAKER) 19 U/L 5-34 (test code = 353) ALT (SGPT) (BEAKER) < U/L 6-55 L (test code = 347) EGFR (BEAKER) (test 10 mL/min/1.73 ESTIMA NICOLE GFR IS code = 1092) sq m NOT ACCURATE CREATININE CLEARANCE IN PREDICTING GLOMERULAR FILTRATION RATE . ESTIMATED GFR I S NOT APPLICABLE FOR DIALYSIS PATIEN TS. Financial Analyst Accountant ID - PALAK [id number] 05:45:00 Test Item Value Reference Range Interpretation Comments PHOSPHORUS (BEAKER) (test code = 5.5 mg/dL 2.3-4.7 H 604) Financial Analyst Accountant ID - PALAK [id number] 05:45:00 Test Item Value Reference Range Interpretation Comments MAGNESIUM (BEAKER) (test code = 1.8 mg/dL 1.6-2.6 627) Financial Analyst Accountant ID - PALAK MCBC W/PLT COUNT & AUTO [id number] 05:15:00 Test Item Value Reference Range Interpretation Comments WHITE BLOOD CELL COUNT (BEAKER) 10.0 K/ L 3.5-10.5 (test code = 775) RED BLOOD CELL COUNT (BEAKER) 3.03 M/ L 3.93-5.22 L (test code = 761) HEMOGLOBIN (BEAKER) (test code = 8.5 GM/DL 11.2-15.7 L 410) HEMATOCRIT (BEAKER) (test code = 27.9 % 34.1-44.9 L 411) MEAN CORPUSCULAR VOLUME (BEAKER) 92.1 fL 79.4-94.8 (test code = 753) MEAN CORPUSCULAR HEMOGLOBIN 28.1 pg 25.6-32.2 (BEAKER) (test code = 751) MEAN CORPUSCULAR HEMOGLOBIN CONC 30.5 GM/DL 32.2-35.5 L (BEAKER) (test code = 752) RED CELL DISTRIBUTION WIDTH 18.6 % 11.7-14.4 H (BEAKER) (test code = 412) PLATELET COUNT (BEAKER) (test 184 K/CU MM 150-450 code = 756) MEAN PLATELET VOLUME (BEAKER) 9.5 fL 9.4-12.3 (test code = 754) NUCLEATED RED BLOOD CELLS 1 /100 WBC 0-0 H (BEAKER) (test code = 413) NEUTROPHILS RELATIVE PERCENT 60 % (BEAKER) (test code = 429) LYMPHOCYTES RELATIVE PERCENT 30 % (BEAKER) (test code = 430) MONOCYTES RELATIVE PERCENT 7 % (BEAKER) (test code = 431) EOSINOPHILS RELATIVE PERCENT 0 % (BEAKER) (test code = 432) BASOPHILS RELATIVE PERCENT 0 % (BEAKER) (test code = 437) NEUTROPHILS ABSOLUTE COUNT 6.01 K/ L 1.56-6.13 (BEAKER) (test code = 670) LYMPHOCYTES ABSOLUTE COUNT 3.03 K/ L 1.18-3.74 (BEAKER) (test code = 414) MONOCYTES ABSOLUTE COUNT (BEAKER) 0.70 K/ L 0.24-0.36 H (test code = 415) EOSINOPHILS ABSOLUTE COUNT 0.00 K/ L 0.04-0.36 L (BEAKER) (test code = 416) BASOPHILS ABSOLUTE COUNT (BEAKER) 0.03 K/ L 0.01-0.08 (test code = 417) IMMATURE GRANULOCYTES-RELATIVE 2 % 0-1 H PERCENT ([place]) (test code = 2801) POCT-GLUCOSE [id number] 00:30:00 Test Item Value Reference Range Interpretation Comments POC-GLUCOSE METER 111 mg/dL 70-110 H : TESTED A T [facility] 67[facility] ([place]) (test code = CARLO Lin [facility], 1538) 71175: Financial Analyst Accountant/Techni kathryn ID = [id number] for EASTON SALEH POCT-GLUCOSE [id number] 18:32:00 Test Item Value Reference Range Interpretation Comments POC-GLUCOSE METER 121 mg/dL 70-110 H : TESTED A T [facility] 6720 ([place]) (test code = CARLO Lin [facility], 1538) 25535: Financial Analyst Accountant/Techni kathryn ID = [id number] for DU KAROL, BRET EEG W VID 2-12 HR CONTINUOUS MONITORING (VEEG)2020-07-07 15:19:00 day billingVideo EEG report [facility] DATE OF TEST: 07/06/2020 DATE OF REPORT: 07/06/2020 ACC: [id number] Start time: 8:02 AM Stop time: 5:48 PM ICD-10: R56.0 CPT: 18802 HISTORY: 74 y.o. female with PMH of HSV, HTN, recently diagnosed multiple myeloma and ESRD presenting with altered mental status. MEDICATIONS: Keppra, ativan, vancomycin, dilaudid, maxipine, protonix, heparin TECHNICAL SUMMARY: This is a digital video EEG recorded with 32 input channels reviewed with bipolar and referential montages using the modified combinatorial system nomenclature. DESCRIPTION OF RECORD: The posterior d ominant rhythm is not seen. The background consists of continuous diffuse delta/theta activity. There are generalized frontal predominant periodic discharges with triphasic morphology, frequency of 1-2 Hz seen in >90% of the recording. EVENTS: During this recording the patient is noted to interm ittently have mouth movements in the form of swallowing/lip smacking movements with no ictal EEG seizure pattern. IMPRESSION: Abnormal EEG 1. Generalized Periodic Discharges (GPDs) 2. Continuous generalized background slowing CLINICAL CORRELATION: This abnormal EEG is consistent with an acute/subacute severe diffuse encephalopathy. Intermittent oral movements seen duringthis study was not associated with an ictal EEG seizure pattern. Aleyda Donahue MD Clinical Neurophysiology/Epilepsy Attending EEG 2-12 HR Continuous Monitoring with [id number] 15:19:00Interface, External Ris In - 07/07/2020 3:19 PM CDTVideo EEG report [facility] DATE OF TEST: 07/06/2020 DATE OF REPORT: 07/06/2020 ACC: [id number] Start time: 8:02 AM Stop time: 5:48 PM ICD-10: R56.0 CPT: 17005 HISTORY: 74 y.o. female with PMH of HSV, HTN, recently diagnosed multiple myeloma and ESRD presenting with altered mental status. MEDICATIONS: Keppra, ativan, vancomycin, dilaudid, maxipine, protonix, heparin TECHNICAL SUMMARY: This is a digital video EEG recorded with 32 input channels reviewed with bipolar and referential montages using the modified combinatorial system nomenclature. DESCRIPTION OF RECORD: The posterior dominant rhythm is not seen. The background consists of continuous diffuse delta/theta activity. There are generalized frontal predominant periodic discharges with triphasic morphology, frequency of 1-2 Hz seen in >90% of the recording. EVENTS:During this recording the patient is noted to intermittently have mouth movements in the form of swallowing/lip smacking movements with no ictal EEG seizure pattern. IMPRESSION: Abnormal EEG 1. Generalized Periodic Discharges (GPDs) 2. Continuous generalized background slowing CLINICAL CORRELATION: This abnormal EEG is consistent with an acute/subacute severe diffuse encephalopathy. Intermittent oral movements seen during this study was not associated with an ictal EEG seizure pattern. Aleyda Donahue MD Clinical Neurophysiology/Epilepsy Attending [facility] [id number] 11:58:00 Test Item Value Reference Range Interpretation Comments POC-GLUCOSE METER 85 mg/dL 70-110 : TESTED A T [facility] 6720 (DOM) (test code = CARLO [place], 1538) [address]11[address]: Financial Analyst Accountant/Techni kathryn ID = [id number] for JETHRO DIALLO [id number] 11:38:00 Test Item Value Reference Range Interpretation Comments Ammonia (test code = 34 18- 72 mol/L 84607-1) HERBIE (test code = HERBIE) Financial Analyst Accountant ID - AAHAMID Lab Interpretation (test Normal code = 79073-1) [facility]2020-[facility]-01 11:38:00 Test Item Value Reference Range Interpretation Comments AMMONIA (BEAKER) (test code = 348) 34 mol/L 18-72 Financial Analyst Accountant ID - AAHAMIDPOCT-GLUCOSE [id number] 07:08:00 Test Item Value Reference Range Interpretation Comments POC-GLUCOSE METER 87 mg/dL 70-110 : TESTED A T [facility] 6720 (BEAKER) (test code = CARLO [place], 1538) [address]: Financial Analyst Accountant/Techni kathryn ID = [id number] for DENNY SHETTY COMPREHENSIVE METABOLIC [id number] 06:19:00 Test Item Value Reference Range Interpretation Comments TOTAL PROTEIN 13.6 gm/dL 6.0-8.3 H (BEAKER) (test code = 770) ALBUMIN (BEAKER) 2.6 g/dL 3.5-5.0 L (test code = 1145) ALKALINE PHOSPHATASE 30 U/L 40-150 L (BEAKER) (test code = 346) BILIRUBIN TOTAL 0.5 mg/dL 0.2-1.2 (BEAKER) (test code = 377) SODIUM (BEAKER) (test 134 meq/L 136-145 L code = 381) POTASSIUM (BEAKER) 4.1 meq/L 3.5-5.1 (test code = 379) CHLORIDE (BEAKER) 107 meq/L 98-107 (test code = 382) CO2 (BEAKER) (test 20 meq/L 22-29 L code = 355) BLOOD UREA NITROGEN 64 mg/dL 7-21 H (BEAKER) (test code = 354) CREATININE (BEAKER) 8.13 mg/dL 0.57-1.25 H (test code = 358) GLUCOSE RANDOM 88 mg/dL 70-105 (BEAKER) (test code = 652) CALCIUM (BEAKER) 6.5 mg/dL 8.4-10.2 L (test code = 697) AST (SGOT) (BEAKER) 11 U/L 5-34 (test code = 353) ALT (SGPT) (BEAKER) < U/L 6-55 L (test code = 347) EGFR (BEAKER) (test 6 mL/min/1.73 ESTIMAT ED GFR IS code = 1092) sq m NOT ACCURATE CREATININE CLEARANCE IN PREDICTING GLOMERULAR FILTRATION RATE . ESTIMATED GFR I S NOT APPLICABLE FOR DIALYSIS PATIEN TS. Financial Analyst Accountant ID - [id number] 06:13:00 Test Item Value Reference Range Interpretation Comments PHOSPHORUS (BEAKER) (test code = 4.5 mg/dL 2.3-4.7 604) Financial Analyst Accountant ID - [id number] 06:13:00 Test Item Value Reference Range Interpretation Comments MAGNESIUM (BEAKER) (test code = 1.8 mg/dL 1.6-2.6 627) Financial Analyst Accountant ID - EDASICBC W/PLT COUNT & AUTO [id number] 05:47:00 Test Item Value Reference Range Interpretation Comments WHITE BLOOD CELL COUNT (BEAKER) 10.6 K/ L 3.5-10.5 H (test code = 775) RED BLOOD CELL COUNT (BEAKER) 2.64 M/ L 3.93-5.22 L (test code = 761) HEMOGLOBIN (BEAKER) (test code = 7.4 GM/DL 11.2-15.7 L 410) HEMATOCRIT (BEAKER) (test code = 24.1 % 34.1-44.9 L 411) MEAN CORPUSCULAR VOLUME (BEAKER) 91.3 fL 79.4-94.8 (test code = 753) MEAN CORPUSCULAR HEMOGLOBIN 28.0 pg 25.6-32.2 (BEAKER) (test code = 751) MEAN CORPUSCULAR HEMOGLOBIN CONC 30.7 GM/DL 32.2-35.5 L (BEAKER) (test code = 752) RED CELL DISTRIBUTION WIDTH 19.2 % 11.7-14.4 H (BEAKER) (test code = 412) PLATELET COUNT (BEAKER) (test 225 K/CU MM 150-450 code = 756) MEAN PLATELET VOLUME (BEAKER) 9.8 fL 9.4-12.3 (test code = 754) NUCLEATED RED BLOOD CELLS 0 /100 WBC 0-0 (BEAKER) (test code = 413) NEUTROPHILS RELATIVE PERCENT 51 % (BEAKER) (test code = 429) LYMPHOCYTES RELATIVE PERCENT 35 % (BEAKER) (test code = 430) MONOCYTES RELATIVE PERCENT 12 % (BEAKER) (test code = 431) EOSINOPHILS RELATIVE PERCENT 1 % (BEAKER) (test code = 432) BASOPHILS RELATIVE PERCENT 0 % (BEAKER) (test code = 437) NEUTROPHILS ABSOLUTE COUNT 5.41 K/ L 1.56-6.13 (BEAKER) (test code = 670) LYMPHOCYTES ABSOLUTE COUNT 3.68 K/ L 1.18-3.74 (BEAKER) (test code = 414) MONOCYTES ABSOLUTE COUNT (BEAKER) 1.29 K/ L 0.24-0.36 H (test code = 415) EOSINOPHILS ABSOLUTE COUNT 0.13 K/ L 0.04-0.36 (BEAKER) (test code = 416) BASOPHILS ABSOLUTE COUNT (BEAKER) 0.04 K/ L 0.01-0.08 (test code = 417) IMMATURE GRANULOCYTES-RELATIVE 1 % 0-1 PERCENT (BEAKER) (test code = 2801) POCT-GLUCOSE [id number] 00:47:00 Test Item Value Reference Range Interpretation Comments POC-GLUCOSE METER 87 mg/dL 70-110 : TESTED A T [facility] 6720 (BEAKER) (test code = [place], 1538) [address]: Financial Analyst Accountant/Techni kathryn ID = [id number] for JAN FARIAS PROTEIN ELECTROPHORESIS, [id number] 19:20:00 Test Item Value Reference Range Interpretation Comments ALBUMIN FRACTION 3.4 g/dL 3.5-5.5 L (BEAKER) (test code = 405) ALPHA 1 FRACTION 0.4 g/dL 0.2-0.4 (BEAKER) (test code = 389) ALPHA 2 FRACTION 1.2 g/dL 0.5-0.9 H (BEAKER) (test code = 390) BETA FRACTION 1.3 g/dL 0.6-1.1 H (BEAKER) (test code = 392) GAMMA GLOBULIN 7.2 g/dL 0.7-1.7 H FRACTION (BEAKER) (test code = 391) INTERPRETATION-119 Large monoclonal band in (BEAKER) (test code terminal gamma region. = 7787) Based on current electrophoretic scan, concentration is approximately 5.4 g/dL. Serum VERÓNICA ordered for further characterization. [id number] Jessy Camacho MD 9 (DOM) (test (electronic signature) code = 2616) PROTEIN TOTAL 13.5 gm/dL 6.0-8.3 H SERUM, SPEP (DOM) (test code = 2660) Financial Analyst Accountant ID - PIAYA LRAD, ABDOMEN/KUB, 1 VIEW [id number] 16:56:00Reason for exam:->Corpak placementFINAL REPORT TECHNIQUE: RAD, ABDOMEN/KUB, 1 VIEW AP INDICATION: Corpak placement COMPARISON: None. FINDINGS:Feeding tube is not visualized on the current exam. Bowel gas pattern i s nonobstructive. Degenerative changes noted in the lumbar spine with mild levoconvex curvature. Multiple phleboliths project over the pelvis.. IMPRESSION:Feeding tube is not visualized on the exam.. Signed: Jennifer Man MDRepaudrain medical center Verified Date/Time: 07/06/2020 16:56:17 Reading Location: [address] Reading Room POCT-GLUCOSE [id number] 12:21:00 Test Item Value Reference Range Interpretation Comments POC-GLUCOSE METER 103 mg/dL 70-110 : TESTED A T [facility] 6720 [facility] (test code [facility], = 1538) [address]: Financial Analyst Accountant/Techni kathryn ID = [id number] for JETHRO DIALLO EEG W VID 12-26 HR CONTINUOUS MONITORING (VEEG)2020-07-06 11:53:00billing 07/05-07/06Video EEG report [facility] DATE OF TEST: 07/05/2020 DATE OF REPORT: 07/06/2020 ACC: [id number] [id number] Start time: 12:02 PM 07/05/2020 Stop time: 8:02 AM 07/06/2020 ICD-10: R56.0 CPT: 70709 HISTORY: 74 y.o. female with PMH of HSV, HTN, recently diagnosed multiple myeloma and ESRD presenting with altered mental status. MEDICATIONS: Keppra, ativan, vancomycin, dilaudid, maxipine, protonix, heparin TECHNICAL SUMMARY: This is a digital video EEG recorded with 32 input channels reviewed with bipolar and referential montages using the modified combinatorial system nomenclature. DESCRIPTION OF RECORD: The posterior dominant rhythm is not seen. The background consists of continuous diffuse delta/theta activity. There are generalized frontal predominant periodic discharges with triphasic morphology, frequency of 1-2 Hz seen in >90% of the recording. EVENTS: During this recording the patient is noted to intermittently have mouth movements in the form of swallowing/lip smacking movements with no ictal EEG seizure pattern. IMPRESSION: Abnormal EEG 1. Generalized Periodic Discharges (GPDs) 2. Continuous generalized background slowing 3. Paroxysmal Events, no ictal EEG seizure pattern. CLINICAL CORRELATION: This abnormal EEG is consistent with an acu te/subacute severe diffuse encephalopathy. Intermittent oral movements seen during this study was not associated with an ictal EEG seizure pattern. Aleyda Donahue MD Clinical Neurophysiology/Epilepsy Attending EEG 12-26 HR Continuous Monitoring with [id number] 11:53:00Interface, External Ris In - 07/06/2020 11:53 AM CDTVideo EEG report [facility] DATE OF TEST: 07/05/2020DATE OF REPORT: 07/06/2020 ACC: [id number] [id number] Start time: 12:02 PM 07/05/2020 Stop time: 8:02 AM 07/06/2020 ICD-10: R56.0 CPT: 69236 HISTORY: 74 y.o. female with PMH of HSV, HTN, recently diagnosed multiple myeloma and ESRD presenting with altered mental status. MEDICATIONS: Keppra, ativan, vancomycin, dilaudid, maxipine, protonix, heparin TECHNICAL SUMMARY: This is a digital video EEG recorded with 32 input channels reviewed with bipolar and referential montages using the modified combinatorial system nomenclature. DESCRIPTION OF RECORD: The posterior dominant rhythm is not seen. The background consists of continuous diffuse delta/theta activity. There are generalized frontal pred ominant periodic discharges with triphasic morphology, frequency of 1-2 Hz seen in >90% of the recording. EVENTS: During this recording the patient is noted to intermittently have mouth movementsin the form of swallowing/lip smacking movements with no ictal EEG seizure pattern. IMPRESSION: Abnormal EEG 1. Generalized Periodic Discharges (GPDs) 2. Continuous generalized background slowing 3. Paroxysmal Events, no ictal EEG seizure pattern. CLINICAL CORRELATION: This abnormal EEG is consistent with an acute/subacute severe diffuse encephalopathy. Intermittent oral movements seen during this study was not associated with an ictal EEG seizure pattern. Aleyda Donahue MD Clinical Neurophysiology/Epilepsy Attending [facility]real[facility]in2020-[facility]-30 11:19:00 Test Item Value Reference Range Interpretation Comments Prealbumin (test code = 25 mg/dL 1445 74841-5) HERBIE (test code = HERBIE) Financial Analyst Accountant [facility] Lab Interpretation (test Normal code = 00749-7) [facility]2020-09-30 11:19:00 Test Item Value Reference Range Interpretation Comments PREALBUMIN (BEAKER) (test code = 25 mg/dL 45 586) Financial Analyst Accountant [facility] [id number] 11:01:00 Test Item Value Reference Range Interpretation Comments Triglycerides (test 173 mg/dL code = 2571-8) HERBIE (test code = HERBIE) TRIGLYCERIDE REFERENCE RANGELow Risk <150Borderline Risk 150-199High Risk 200-499Very High Risk >=500Operator [facility]HealthTRIGLYCERIDES2020-09-30 11:01:00 Test Item Value Reference Range Interpretation Comments TRIGLYCERIDES (BEAKER) (test code = 173 mg/dL 540) TRIGLYCERIDE REFERENCE RANGELow Risk <150Borderline Risk 150-199High Risk 200-499Very High Risk>=500Operator [facility] FVitamin D, 25-Hydroxy 2020-07-06 07:23:00 Test Item Value Reference Range Interpretation Comments Vitamin D 25-Hydroxy 39.0 ng/mL 6.6-49.9 (test code = 2764) HERBIE (test code = HERBIE) Effective 07/17/2017: Reference Range ChangeNew: 6.6-49.9 ng/mL Previous: 13.0-47.8 ng/mL Recommended Vitamin D Target Range: 30.0-40.0 ng/mLOperator ID - CAROLINA F Lab Interpretation (test Normal code = 07883-0) [facility] HospitalVITAMIN D, 27-[id number] 07:23:00 Test Item Value Reference Range Interpretation Comments VITAMIN D 25-OH (BEAKER) (test 39.0 ng/mL 6.6-49.9 code = 2764) Effective 07/17/2017: Reference Range ChangeNew: 6.6-49.9 ng/mL Previous: 13.0-47.8 ng/mLRecommended Vitamin D Target Range: 30.0-40.0 ng/mLOperator ID - MOOSE FCOMPREHENSIVE METABOLIC [id number] 06:58:00 Test Item Value Reference Range Interpretation Comments TOTAL PROTEIN 14.4 gm/dL 6.0-8.3 H (BEAKER) (test code = 770) ALBUMIN (BEAKER) 2.7 g/dL 3.5-5.0 L (test code = 1145) ALKALINE PHOSPHATASE 31 U/L 40-150 L (BEAKER) (test code = 346) BILIRUBIN TOTAL 0.5 mg/dL 0.2-1.2 (BEAKER) (test code = 377) SODIUM (BEAKER) (test 129 meq/L 136-145 L code = 381) POTASSIUM (BEAKER) 3.9 meq/L 3.5-5.1 (test code = 379) CHLORIDE (BEAKER) 103 meq/L 98-107 (test code = 382) CO2 (BEAKER) (test 20 meq/L 22-29 L code = 355) BLOOD UREA NITROGEN 50 mg/dL 7-21 H (BEAKER) (test code = 354) CREATININE (BEAKER) 5.98 mg/dL 0.57-1.25 H (test code = 358) GLUCOSE RANDOM 97 mg/dL 70-105 (BEAKER) (test code = 652) CALCIUM (BEAKER) 7.1 mg/dL 8.4-10.2 L (test code = 697) AST (SGOT) (BEAKER) 13 U/L 5-34 (test code = 353) ALT (SGPT) (BEAKER) < U/L 6-55 L (test code = 347) EGFR (BEAKER) (test 8 mL/min/1.73 ESTIMAT ED GFR IS code = 1092) sq m NOT ACCURATE CREATININE CLEARANCE IN PREDICTING GLOMERULAR FILTRATION RATE . ESTIMATED GFR I S NOT APPLICABLE FOR DIALYSIS PATIEN TS. Financial Analyst Accountant ID - MOOSE [id number] 06:43:00 Test Item Value Reference Range Interpretation Comments PHOSPHORUS (BEAKER) (test code = 3.8 mg/dL 2.3-4.7 604) Financial Analyst Accountant ID - MOOSE [id number] 06:43:00 Test Item Value Reference Range Interpretation Comments MAGNESIUM (BEAKER) (test code = 1.8 mg/dL 1.6-2.6 627) Financial Analyst Accountant ID - MOOSE FPTH, [id number] 06:32:00 Test Item Value Reference Range Interpretation Comments PTH (test code = 2731-8) 591.5 pg/mL 8.5-72.5 H HERBIE (test code = HERBIE) Financial Analyst Accountant ID - MOOSE F Lab Interpretation (test Abnormal code = 15069-8) [facility] [id number] 06:32:00 Test Item Value Reference Range Interpretation Comments PARATHYROID HORMONE INTACT 591.5 pg/mL 8.5-72.5 H (BEAKER) (test code = 577) Financial Analyst Accountant ID - MOOSE FCBC W/PLT COUNT & AUTO [id number] 06:21:00 Test Item Value Reference Range Interpretation Comments WHITE BLOOD CELL COUNT (BEAKER) 10.3 K/ L 3.5-10.5 (test code = 775) RED BLOOD CELL COUNT (BEAKER) 2.71 M/ L 3.93-5.22 L (test code = 761) HEMOGLOBIN (BEAKER) (test code = 7.7 GM/DL 11.2-15.7 L 410) HEMATOCRIT (BEAKER) (test code = 24.3 % 34.1-44.9 L 411) MEAN CORPUSCULAR VOLUME (BEAKER) 89.7 fL 79.4-94.8 (test code = 753) MEAN CORPUSCULAR HEMOGLOBIN 28.4 pg 25.6-32.2 (BEAKER) (test code = 751) MEAN CORPUSCULAR HEMOGLOBIN CONC 31.7 GM/DL 32.2-35.5 L (BEAKER) (test code = 752) RED CELL DISTRIBUTION WIDTH 19.4 % 11.7-14.4 H (BEAKER) (test code = 412) PLATELET COUNT (BEAKER) (test 224 K/CU MM 150-450 code = 756) MEAN PLATELET VOLUME (BEAKER) 9.6 fL 9.4-12.3 (test code = 754) NUCLEATED RED BLOOD CELLS 2 /100 WBC 0-0 H (BEAKER) (test code = 413) NEUTROPHILS RELATIVE PERCENT 62 % (BEAKER) (test code = 429) LYMPHOCYTES RELATIVE PERCENT 23 % (BEAKER) (test code = 430) MONOCYTES RELATIVE PERCENT 14 % (BEAKER) (test code = 431) EOSINOPHILS RELATIVE PERCENT 0 % (BEAKER) (test code = 432) BASOPHILS RELATIVE PERCENT 0 % (BEAKER) (test code = 437) NEUTROPHILS ABSOLUTE COUNT 6.34 K/ L 1.56-6.13 H (BEAKER) (test code = 670) LYMPHOCYTES ABSOLUTE COUNT 2.40 K/ L 1.18-3.74 (BEAKER) (test code = 414) MONOCYTES ABSOLUTE COUNT (BEAKER) 1.43 K/ L 0.24-0.36 H (test code = 415) EOSINOPHILS ABSOLUTE COUNT 0.01 K/ L 0.04-0.36 L (BEAKER) (test code = 416) BASOPHILS ABSOLUTE COUNT (BEAKER) 0.02 K/ L 0.01-0.08 (test code = 417) IMMATURE GRANULOCYTES-RELATIVE 1 % 0-1 PERCENT (BEAKER) (test code = 2801) POCT-GLUCOSE [id number] 05:58:00 Test Item Value Reference Range Interpretation Comments POC-GLUCOSE METER 95 mg/dL 70-110 : TESTED A T [facility] [address] ([place]) (test code = [facility], 1538) 184[address]: Financial Analyst Accountant/Techni kathryn ID = [id number] for MENDOZA SUSANA MEYER [place] POCT-GLUCOSE [id number] 22:13:00 Test Item Value Reference Range Interpretation Comments POC-GLUCOSE METER 81 mg/dL 70-110 : TESTED A T [facility] [address] ([place]) (test code = [facility], 1538) 67547: Financial Analyst Accountant/Techni kathryn ID = [id number] for DOBB INS, TESS EEG W VID 12-26 HR CONTINUOUS MONITORING (VEEG)2020-07-05 15:49:00Reason for exam:->szELECTROENCEPHALOGRAM CONTINUOUS EEG VIDEO BEDSIDE MONITORING STUDY PATIENT NAME: PETROS VELÁSQUEZ START TIME: 11:42 AM, 2019END TIME: 12:02 PM, 2019 REPORT DATE: 2019 CPT: 25928 ICD10: R56.9 PATIENT HX: Patient with encephalopathy and suspected seizures. TECHNICAL SUMMARY The EEG recorded simultaneously with video at the bedside. There is no occipital dominant rhythm. There is low to moderate voltage 4to 5 Hz activity is present in all regions. Moderate voltage 1 to 2 Hz activity is present anteriorly. There are semi-periodic moderate voltage diphasic sharp waves in the frontal regions bilaterally. IMPRESSION: This patient's electroencephalogram is abnormal. There is no occipital dominant rhythm and the EEG is diffusely so with anterior slow (delta) activity associated with diphasic sharp waves. The findings are consistent with the presence of a diffuse encephalopathy possibility of metabolic or hypoxic ischemic origin. No epileptiform activity is present. No electrographic seizures were recorded. Joanna Anthony MD EEG 12-26 HR Continuous Monitoring with [id number] 15:49:00Interface, External Ris In - 07/05/2020 3:49 PM CDTELECTROENCEPHALOGRAM CONTINUOUS EEG VIDEO BEDSIDE MONITORING STUDY PATIENT NAME: PETROS VELÁSQUEZ TIME: 11:42 AM, 2019 END TIME: 12:02 PM, REPORT DATE: 2019 CPT: 18251 ICD10: R56.9 PATIENT HX: Patient with encephalopathy and suspected seizures. TECHNICAL SUMMARY The EEG recorded simultaneously with video at the bedside. There is no occipital dominant rhythm. There is low to moderate voltage 4 to 5 Hz activity is present in all regions. Moderate voltage 1 to 2 Hz activity is present anteriorly. There are semi-periodic moderate voltage diphasic sharp waves in the frontal regions bilaterally. IMPRESSION: This patient's electroencephalogram is abnormal. There is no occipital dominant rhythm and the EEG is diffusely so with anterior slow (delta) activity associated with diphasic sharp waves. The findings are consistent with the presence of a diffuse encephalopathy possibility of metabolic or hypoxic ischemic origin. No epileptiform activity is present. No electrographic seizures were recorded. Joanna Anthony MD [facility] [id number] 10:47:00 Test Item Value Reference Range Interpretation Comments POC-GLUCOSE METER 125 mg/dL 70-110 H : TESTED A T [facility] (BEAKER) [facility] 61759: Financial Analyst Accountant/Techni kathryn ID = [id number] for AMAN FREDERICK HEPATITIS B SURFACE [id number] 10:38:00 Test Item Value Reference Range Interpretation Comments HEPATITIS B SURFACE ANTIGEN (2) Nonreactive Nonreactive (BEAKER) (test code = 2585) Specimen is considered negative for HBsAg.IMMUNOGLOBULIN G (IGG)2020-07-05 06:55:00 Test Item Value Reference Range Interpretation Comments IMMUNOGLOBULIN G (IGG) (BEAKER) (test > mg/dL 540-1,822 H code = 427) Financial Analyst Accountant ID Shani POWELL LImmunoglobulin M (IgM)2020-07-05 06:52:00 Test Item Value Reference Range Interpretation Comments IgM (test code = 2464-6) 20 mg/dL 22-293 L HERBIE (test code = HERBIE) Financial Analyst Accountant ID - SHERRY L Lab Interpretation (test Abnormal code = 36484-6) [facility] ([facility]M)2020-07-05 06:52:00 Test Item Value Reference Range Interpretation Comments IMMUNOGLOBULIN M (IGM) (BEAKER) 20 mg/dL 22-293 L (test code = 638) Financial Analyst Accountant ID Shani POWELL LImmunoglobulin A (IgA)2020-07-05 06:43:00 Test Item Value Reference Range Interpretation Comments IgA (test code = 2458-8) 29 mg/dL 63-484 L HERBIE (test code = HERBIE) Financial Analyst Accountant ID - SHERRY L Lab Interpretation (test Abnormal code = 12447-4) [facility] (IGA)2020-07-05 06:43:00 Test Item Value Reference Range Interpretation Comments IMMUNOGLOBULIN A (IGA) (BEAKER) 29 mg/dL 63-484 L (test code = 639) Financial Analyst Accountant ID Shani POWELL LPOCT-GLUCOSE [id number] 06:28:00 Test Item Value Reference Range Interpretation Comments POC-GLUCOSE METER 102 mg/dL 70-110 : TESTED A T [facility] [address] (BEAKER) (test code = [place], 1538) [address]: Financial Analyst Accountant/Techni kathryn ID = [id number] for SUSANA JONES COMPREHENSIVE METABOLIC [id number] 06:00:00 Test Item Value Reference Range Interpretation Comments TOTAL PROTEIN 13.7 gm/dL 6.0-8.3 H (BEAKER) (test code = 770) ALBUMIN (BEAKER) 2.5 g/dL 3.5-5.0 L (test code = 1145) ALKALINE PHOSPHATASE 26 U/L 40-150 L (BEAKER) (test code = 346) BILIRUBIN TOTAL 0.4 mg/dL 0.2-1.2 (BEAKER) (test code = 377) SODIUM (BEAKER) (test 134 meq/L 136-145 L code = 381) POTASSIUM (BEAKER) 5.1 meq/L 3.5-5.1 (test code = 379) CHLORIDE (BEAKER) 109 meq/L 98-107 H (test code = 382) CO2 (BEAKER) (test 18 meq/L 22-29 L code = 355) BLOOD UREA NITROGEN 94 mg/dL 7-21 H (BEAKER) (test code = 354) CREATININE (BEAKER) 9.44 mg/dL 0.57-1.25 H (test code = 358) GLUCOSE RANDOM 111 mg/dL 70-105 H (BEAKER) (test code = 652) CALCIUM (BEAKER) 6.9 mg/dL 8.4-10.2 L (test code = 697) AST (SGOT) (BEAKER) 10 U/L 5-34 (test code = 353) ALT (SGPT) (BEAKER) < U/L 6-55 L (test code = 347) EGFR (BEAKER) (test 5 mL/min/1.73 ESTIMAT ED GFR IS code = 1092) sq m NOT ACCURATE CREATININE CLEARANCE IN PREDICTING GLOMERULAR FILTRATION RATE . ESTIMATED GFR I S NOT APPLICABLE FOR DIALYSIS PATIEN TS. Financial Analyst Accountant ID - PIAYA [id number] 05:59:00 Test Item Value Reference Range Interpretation Comments PHOSPHORUS (BEAKER) (test code = 5.1 mg/dL 2.3-4.7 H 604) Financial Analyst Accountant ID - SHERRY [id number] 05:59:00 Test Item Value Reference Range Interpretation Comments MAGNESIUM (BEAKER) (test code = 2.0 mg/dL 1.6-2.6 627) Financial Analyst Accountant ID Shani POWELL LCBC W/PLT COUNT & AUTO [id number] 05:19:00 Test Item Value Reference Range Interpretation Comments WHITE BLOOD CELL COUNT (BEAKER) 8.3 K/ L 3.5-10.5 (test code = 775) RED BLOOD CELL COUNT (BEAKER) 2.29 M/ L 3.93-5.22 L (test code = 761) HEMOGLOBIN (BEAKER) (test code = 6.4 GM/DL 11.2-15.7 L 410) HEMATOCRIT (BEAKER) (test code = 21.4 % 34.1-44.9 L 411) MEAN CORPUSCULAR VOLUME (BEAKER) 93.4 fL 79.4-94.8 (test code = 753) MEAN CORPUSCULAR HEMOGLOBIN 27.9 pg 25.6-32.2 (BEAKER) (test code = 751) MEAN CORPUSCULAR HEMOGLOBIN CONC 29.9 GM/DL 32.2-35.5 L (BEAKER) (test code = 752) RED CELL DISTRIBUTION WIDTH 19.0 % 11.7-14.4 H (BEAKER) (test code = 412) PLATELET COUNT (BEAKER) (test 228 K/CU MM 150-450 code = 756) MEAN PLATELET VOLUME (BEAKER) 9.1 fL 9.4-12.3 L (test code = 754) NUCLEATED RED BLOOD CELLS 1 /100 WBC 0-0 H (BEAKER) (test code = 413) NEUTROPHILS RELATIVE PERCENT 78 % (BEAKER) (test code = 429) LYMPHOCYTES RELATIVE PERCENT 18 % (BEAKER) (test code = 430) MONOCYTES RELATIVE PERCENT 2 % (BEAKER) (test code = 431) EOSINOPHILS RELATIVE PERCENT 0 % (BEAKER) (test code = 432) BASOPHILS RELATIVE PERCENT 0 % (BEAKER) (test code = 437) NEUTROPHILS ABSOLUTE COUNT 6.45 K/ L 1.56-6.13 H (BEAKER) (test code = 670) LYMPHOCYTES ABSOLUTE COUNT 1.48 K/ L 1.18-3.74 (BEAKER) (test code = 414) MONOCYTES ABSOLUTE COUNT (BEAKER) 0.20 K/ L 0.24-0.36 L (test code = 415) EOSINOPHILS ABSOLUTE COUNT 0.01 K/ L 0.04-0.36 L (BEAKER) (test code = 416) BASOPHILS ABSOLUTE COUNT (BEAKER) 0.03 K/ L 0.01-0.08 (test code = 417) IMMATURE GRANULOCYTES-RELATIVE 1 % 0-1 PERCENT (BEAKER) (test code = 2801) POCT-GLUCOSE [id number] 00:48:00 Test Item Value Reference Range Interpretation Comments POC-GLUCOSE METER 78 mg/dL 70-110 : TESTED A T [facility] [address] (BEAKER) (test code = [place], 1538) [address]: Financial Analyst Accountant/Techni kathryn ID = [id number] for KELLY MEYER, March Vancomycin level, [id number] 18:24:00 Test Item Value Reference Range Interpretation Comments Vancomycin Rm (test 15.9 ug/mL code = 09684-5) HERBIE (test code = Reference Range: No HERBIE) NormalsOperator ID - DB [facility] HospitalVANCOMYCIN LEVEL, [id number] 18:24:00 Test Item Value Reference Range Interpretation Comments VANCOMYCIN RANDOM (BEAKER) (test 15.9 ug/mL code = 523) Reference Range: No NormalsOperator ID - DBSARS-COV2/RT-PCR ([facility])2020-07-04 14:49:00 Test Item Value Reference Range Interpretation Comments SARS-COV2/RT-PCR (test Negative Not Detected, Negative, code = 0282242) See external report for linked test SARS-COV-2 PERFORMING LAB [facility] CASSANDRA (test code = 2099511) Negative result for this test determines that SARS-CoV-2 RNA was not present in the specimen above the Limit of Detection (LOD). However, Negative results do not preclude SARS-CoV-2 infection and should not be used as the sole basis for treatment or patient management decisions. Negative results mustbe combined with clinical observations, patient history, and epidemiological information. A false negative result may occur if a specimen is improperly collected, transported or handled. A false negative result should be considered if patient's recent exposures or clinical presentation indicate that COVID-19 (SARS-CoV-2) is likely and diagnostic tests for other causes of illness are negative. Re-testing should be considered in cases of suspected false negatives.The limit of detection for this assay is 800 copies/mL.This SARS CoV-2 test is a real-time RT-PCR test intended for the qualitative detection of nucleic acid from SARS-CoV-2 in a nasopharyngeal swab specimen collected from individuals susp ected of COVID-19 by their healthcare provider.This test has not been Food and Drug Administration (FDA) cleared or approved. This is a modified version of an approved Emergency Use Authorization (EUA) and is in the process of review by the FDA. Once authorized by the FDA, the issued EUA will be effective until the declaration that circumstances exist justifying the authorization of the emergency use of in vitro diagnostic tests for detection and/or diagnosis of COVID-19 is terminated under Section 564(b)(2) of the Act or the EUA is revoked under Section 564(g) of the Act.Fact Sheet for Healthcare Providers:https://www.[employer]/sites/default/files/product/documents/Fact_Shee x_ZF_Yoesaovgq_Ijij_OHZE-NgB-9.pdfFact Sheet for Healthcare Patients:https://www.[employer]/sites/default/files/product/ documents/Jfjy_Sawie_Yxpimknw_Vbwi_LQOO-CqK-9.pdfPerforming Laboratory:[facility], [place] [address]Geksor doppler legs [id number] 08:37:48Ejection [facility] ECHO HEARTLAB MKCKESSON CPACSRight Impression1. There is no deep venous obstruction in the common femoral, profundafemoral, femoral, popliteal, posterior tibial or peroneal veins.2. There is no superficial venous obstruction in the great saphenous veinwhere visualized.Left Impression1. There is no deep venous obstruction in the common femoral, profundafemoral, femoral, popliteal, posterior tibial or peroneal veins.2. There is no superficial venous obstruction in the great saphen ous veinwhere visualized. Conclusions Summary Venous duplex imaging and compression of the bilateral lower extremities were performed. The veins were adequately visualized. The bilateral venous systems were patent and compressible with no evidence of thrombus. The venous Doppler waveforms were phasic with respiration . 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 Snyder Interpreting Patience Ybarra MD Physician ProcedureType of Study: Veins: Lower Extremities DVT Study, VENOUS DOPPLER LEG, BILATERAL. Indications for Study:Elevated D-dimer.Patient Status:Routine.Study Location:Portable.Technical Quality:Adequate visualization.Risk FactorsHistory of Disease+ +----+ +!Diagnosis !Date!Comments !+---- +----+ +!History/ Risk Factors: ! !AMS, HTN, ESRD, Multiple Myeloma, Chemo !+ +----+ +ImpressionsRight Impression1. There is no deep venous obstruction in the commonfemoral, profundafemoral, femoral, popliteal, posterior tibial or peroneal veins.2. There is no superficial venous obstruction in the great saphenous veinwhere visualized.Left Impression1. There is no deep venous obstruction in the common femoral, profundafemoral, femoral, popliteal, posterior tibial or peroneal veins.2. There is no superficial venous obstruction in the great saphenous veinwhere visualized. Conclusions Summary Venous duplex imaging and compression of the bilateral lower extremities were performed. The veins were adequately visualized. The bilateral venous systems were patent and c ompressible with no evidence of thrombus. The venous Doppler waveforms were phasic with respiration . Signature Velocities are measured in cm/s ; Diameters are measured in [facility] [id number] 07:20:00 Test Item Value Reference Range Interpretation Comments Ferritin (test code = 2365.63 ng/mL 5-275 H 2276-4) HERBIE (test code = HERBIE) Financial Analyst Accountant ID - PIAYA L Lab Interpretation (test Abnormal code = 59865-5) [facility]ERR[facility]IN2020-[facility] 07:20:00 Test Item Value Reference Range Interpretation Comments FERRITIN (BEAKER) (test code = 2365.63 ng/mL 5.00-275.00 H 361) Financial Analyst Accountant JEANETTE POWELL [id number] 07:19:00 Test Item Value Reference Range Interpretation Comments T4, Total (test code = 5.1 ug/dL 4.9-11.7 3026-2) HERBIE (test code = HERBIE) Financial Analyst Accountant ID Shani POWELL L Lab Interpretation (test Normal code = 84553-8) [facility] HospitalT42020-09-28 07:19:00 Test Item Value Reference Range Interpretation Comments T4 TOTAL (BEAKER) (test code = 895) 5.1 ug/dL 4.9-11.7 Financial Analyst Accountant JEANETTE POWELL LCOMPREHENSIVE METABOLIC [id number] 06:30:00 Test Item Value Reference Range Interpretation Comments TOTAL PROTEIN 13.0 gm/dL 6.0-8.3 H (BEAKER) (test code = 770) ALBUMIN (BEAKER) 2.5 g/dL 3.5-5.0 L (test code = 1145) ALKALINE PHOSPHATASE 28 U/L 40-150 L (BEAKER) (test code = 346) BILIRUBIN TOTAL 0.4 mg/dL 0.2-1.2 (BEAKER) (test code = 377) SODIUM (BEAKER) (test 134 meq/L 136-145 L code = 381) POTASSIUM (BEAKER) 4.3 meq/L 3.5-5.1 (test code = 379) CHLORIDE (BEAKER) 108 meq/L 98-107 H (test code = 382) CO2 (BEAKER) (test 21 meq/L 22-29 L code = 355) BLOOD UREA NITROGEN 81 mg/dL 7-21 H (BEAKER) (test code = 354) CREATININE (BEAKER) 7.77 mg/dL 0.57-1.25 H (test code = 358) GLUCOSE RANDOM 91 mg/dL 70-105 (BEAKER) (test code = 652) CALCIUM (BEAKER) 6.7 mg/dL 8.4-10.2 L (test code = 697) AST (SGOT) (BEAKER) 12 U/L 5-34 (test code = 353) ALT (SGPT) (BEAKER) < U/L 6-55 L (test code = 347) EGFR (BEAKER) (test 6 mL/min/1.73 ESTIMAT ED GFR IS code = 1092) sq m NOT ACCURATE CREATININE CLEARANCE IN PREDICTING GLOMERULAR FILTRATION RATE . ESTIMATED GFR I S NOT APPLICABLE FOR DIALYSIS PATIEN TS. Financial Analyst Accountant ID - SHERRY [id number] 06:24:00 Test Item Value Reference Range Interpretation Comments PHOSPHORUS (BEAKER) (test code = 3.3 mg/dL 2.3-4.7 604) Financial Analyst Accountant ID - SHERRY [id number] 06:24:00 Test Item Value Reference Range Interpretation Comments MAGNESIUM (BEAKER) (test code = 1.8 mg/dL 1.6-2.6 627) Financial Analyst Accountant ID - SHERRY LCBC W/PLT COUNT & AUTO [id number] 05:51:00 Test Item Value Reference Range Interpretation Comments WHITE BLOOD CELL COUNT (BEAKER) 13.2 K/ L 3.5-10.5 H (test code = 775) RED BLOOD CELL COUNT (BEAKER) 2.44 M/ L 3.93-5.22 L (test code = 761) HEMOGLOBIN (BEAKER) (test code = 7.1 GM/DL 11.2-15.7 L 410) HEMATOCRIT (BEAKER) (test code = 22.5 % 34.1-44.9 L 411) MEAN CORPUSCULAR VOLUME (BEAKER) 92.2 fL 79.4-94.8 (test code = 753) MEAN CORPUSCULAR HEMOGLOBIN 29.1 pg 25.6-32.2 (BEAKER) (test code = 751) MEAN CORPUSCULAR HEMOGLOBIN CONC 31.6 GM/DL 32.2-35.5 L (BEAKER) (test code = 752) RED CELL DISTRIBUTION WIDTH 18.3 % 11.7-14.4 H (BEAKER) (test code = 412) PLATELET COUNT (BEAKER) (test 201 K/CU MM 150-450 code = 756) MEAN PLATELET VOLUME (BEAKER) 9.6 fL 9.4-12.3 (test code = 754) NUCLEATED RED BLOOD CELLS 3 /100 WBC 0-0 H (BEAKER) (test code = 413) NEUTROPHILS RELATIVE PERCENT 66 % (BEAKER) (test code = 429) LYMPHOCYTES RELATIVE PERCENT 23 % (BEAKER) (test code = 430) MONOCYTES RELATIVE PERCENT 10 % (BEAKER) (test code = 431) EOSINOPHILS RELATIVE PERCENT 0 % (BEAKER) (test code = 432) BASOPHILS RELATIVE PERCENT 0 % (BEAKER) (test code = 437) NEUTROPHILS ABSOLUTE COUNT 8.67 K/ L 1.56-6.13 H (BEAKER) (test code = 670) LYMPHOCYTES ABSOLUTE COUNT 3.09 K/ L 1.18-3.74 (BEAKER) (test code = 414) MONOCYTES ABSOLUTE COUNT (BEAKER) 1.30 K/ L 0.24-0.36 H (test code = 415) EOSINOPHILS ABSOLUTE COUNT 0.01 K/ L 0.04-0.36 L (BEAKER) (test code = 416) BASOPHILS ABSOLUTE COUNT (BEAKER) 0.02 K/ L 0.01-0.08 (test code = 417) IMMATURE GRANULOCYTES-RELATIVE 1 % 0-1 PERCENT (BEAKER) (test code = 2801) Troponin [id number] 05:43:00 Test Item Value Reference Range Interpretation Comments Troponin I (test code = 0.08 ng/mL 0-0.03 H 37140-7) HERBIE (test code = HERBIE) Troponin I (TnI) levels must be interpreted in the context of the presenting symptoms and the clinical findings. Elevated TnI levels indicate myocardial damage, but are not specific for ischemic heart disease. Elevated TnI levels are seen in patients with other cardiac conditions (including myocarditis and congestive heart failure), and slight TnI elevations occur in patients with other conditions, including sepsis, renal failure, acidosis, acute neurological disease, and persistent tachyarrhythmia.Opera tor ID - PIAYA L Lab Interpretation (test Abnormal code = 46313-9) [facility]TROP[facility] [id number] 05:43:00 Test Item Value Reference Range Interpretation Comments TROPONIN I (BEAKER) (test code = 0.08 ng/mL 0.00-0.03 H 397) Troponin I (TnI) levels must be interpreted in the context of the presenting symptoms and the clinical findings. Elevated TnI levels indicate myocardial damage, but are not specific for ischemic heart disease. Elevated TnI levels are seen in patients with other cardiac conditions (including myocarditis and congestive heart failure), and slight TnI elevations occur in patients with other conditions, including sepsis, renal failure, acidosis, acute neurological disease, and persistent tachyarrhythmia.Financial Analyst Accountant ID - PIAYA LRespiratory Panel [id number] 03:18:00 Test Item Value Reference Range Interpretation Comments Human Metapneumovirus Not detected Not detected, (test code = 61843-2) Equivocal Rhinovirus (test code = Not detected Not detected, 34118-2) Equivocal INFLUENZA A (NO Not detected Not detected, SUBTYPE) (test code = Equivocal 65202-9) Influenza A subtype H1 (test code = 02034-1) Influenza A Subtype H3 (test code = 33796-3) Influenza A Subtype H1-2009 (test code = 78493-0) Influenza B (test code Not detected Not detected, = 21410-7) Equivocal Respiratory Syncytial Not detected Not detected, Virus (test code = Equivocal 95623-8) Parainfluenza Virus 1 Not detected Not detected, (test code = 81320-6) Equivocal Parainfluenza Virus 2 Not detected Not detected, (test code = 72347-2) Equivocal Parainfluenza virus 3 Not detected Not detected, (test code = 27485-2) Equivocal Parainfluenza Virus 4 Not detected Not detected, (test code = 22692-4) Equivocal Adenovirus (test code = Not detected Not detected, 43842-0) Equivocal Coronavirus 229E (test Not detected Not detected, code = 62310-4) Equivocal Coronavirus HKU1 (test Not detected Not detected, code = 78288-1) Equivocal Coronavirus NL63 (test Not detected Not detected, code = 98885-3) Equivocal Coronavirus OC43 (test Not detected Not detected, code = 84406-2) Equivocal Bordetella Pertussis Not detected Not detected, (test code = 44117-8) Equivocal Chlamydophila Not detected Not detected, Pneumoniae (test code = Equivocal 34630-2) Mycoplasma Pneumoniae Not detected Not detected, (test code = 96536-3) Equivocal HERBIE (test code = HERBIE) Other viruses and bacteria not targeted by this PCR panel cannot be excluded; therefore clinical correlation and follow up of serology, culture results, and other molecular studies is required. The results are not intended to be used as the sole means for clinical diagnosis or patient management decisions. This sample was tested at the [facility] using the [employer] FilmArray Respiratory Panel. It is FDA cleared and has been verified and approved by the [facility] for clinical use on nasopharyngeal swab specimens. The performance of the FilmArray RP has not been established in individuals who received influenza vaccine. Recent administration of a nasal influenza vaccine may cause false positive results for Influenza A and/orInfluenza B. [facility] [id number] 03:18:00 Test Item Value Reference Range Interpretation Comments HUMAN METAPNEUMOVIRUS Not detected Not detected, (BEAKER) (test code = 2683) Equivocal RHINOVIRUS (BEAKER) (test Not detected Not detected, code = 2684) Equivocal INFLUENZA A (BEAKER) (test Not detected Not detected, code = 2685) Equivocal INFLUENZA A (NO SUBTYPE) (test code = 3606) INFLUENZA A SUBTYPE H1 (BEAKER) (test code = 2686) INFLUENZA A SUBTYPE H3 (BEAKER) (test code = 2687) INFLUENZA A SUBTYPE H1-2009 (BEAKER) (test code = 3198) INFLUENZA B (BEAKER) (test Not detected Not detected, code = 2688) Equivocal RESPIRATORY SYNCYTIAL VIRUS Not detected Not detected, (BEAKER) (test code = 3199) Equivocal PARAINFLUENZA VIRUS 1 Not detected Not detected, (BEAKER) (test code = 2691) Equivocal PARAINFLUENZA VIRUS 2 Not detected Not detected, (BEAKER) (test code = 2692) Equivocal PARAINFLUENZA VIRUS 3 Not detected Not detected, (BEAKER) (test code = 2693) Equivocal PARAINFLUENZA VIRUS 4 Not detected Not detected, (BEAKER) (test code = 3200) Equivocal ADENOVIRUS (BEAKER) (test Not detected Not detected, code = 2694) Equivocal CORONAVIRUS 229E (BEAKER) Not detected Not detected, (test code = 3201) Equivocal CORONAVIRUS HKU1 (BEAKER) Not detected Not detected, (test code = 3202) Equivocal CORONAVIRUS NL63 (BEAKER) Not detected Not detected, (test code = 3203) Equivocal CORONAVIRUS OC43 (BEAKER) Not detected Not detected, (test code = 3204) Equivocal BORDETELLA PERTUSSIS Not detected Not detected, (BEAKER) (test code = 3205) Equivocal CHLAMYDOPHILA PNEUMONIAE Not detected Not detected, (BEAKER) (test code = 3206) Equivocal MYCOPLASMA PNEUMONIAE Not detected Not detected, (BEAKER) (test code = 3207) Equivocal Other viruses and bacteria not targeted by this PCR panel cannot be excluded; therefore clinical correlation and follow up of serology, culture results, and other molecular studies is required. The results are not intended to be used as the sole means for clinical diagnosis or patient management decisions. This sample was tested at the [facility] using the [employer]Array Respiratory Panel. It is FDA cleared and has been verified and approved by the [facility] for clinical use on nasopharyngeal swab specimens.The performance of the FilmArrayRP has not been established in individuals who received influenza vaccine. Recent administration ofa nasal influenza vaccine may cause false positive results for Influenza A and/orInfluenza B.Urinalysis w/Microscopic + Reflex to Culture 2020-07-04 01:41:00 Test Item Value Reference Range Interpretation Comments Color, UA (test code = Light [place] 5778-6) Clarity, UA (test code = Cloudy 5767-9) Specific [place], UA (test 1.010 1.001-1.035 code = 5811-5) pH, UA (test code = 7.0 5.0-8.0 5803-2) Protein, UA (test code = 200 mg/dL Negative A 10985-5) Glucose, UA (test code = Negative Negative 365) Ketones, UA (test code = Negative Negative 2514-8) Bilirubin, UA (test code = Negative Negative 42307-5) Blood, UA (test code = Moderate Negative A 74820-8) Nitrite, UA (test code = Negative Negative 5802-4) Leukocytes, UA (test code Large Negative A = 5799-2) Urobilinogen, UA (test 0.2 mg/dL 0.2-1 code = 74855-1) RBC, UA (test code = 45 /HPF 79092-0) WBC, UA (test code = 3609 /HPF 5821-4) Squam Epithel, UA (test 21 /HPF code = 70978-5) Specimen Source (test code = 2795) HERBIE (test code = HERBIE) Financial Analyst Accountant ID - tech Lab Interpretation (test Abnormal code = 05917-4) [facility] UR[facility] [id number] 01:41:00 Test Item Value Reference Range Interpretation Comments COLOR (BEAKER) (test code = 470) Light [place] CLARITY (BEAKER) (test code = Cloudy 469) SPECIFIC GRAVITY UA (BEAKER) 1.010 1.001-1.035 (test code = 468) PH UA (BEAKER) (test code = 467) 7.0 5.0-8.0 PROTEIN UA (BEAKER) (test code = 200 mg/dL Negative A 464) GLUCOSE UA (BEAKER) (test code = Negative Negative 365) KETONES UA (BEAKER) (test code = Negative Negative 371) BILIRUBIN UA (BEAKER) (test code Negative Negative = 462) BLOOD UA (BEAKER) (test code = Moderate Negative A 461) NITRITE UA (BEAKER) (test code = Negative Negative 465) LEUKOCYTE ESTERASE UA (BEAKER) Large Negative A (test code = 466) UROBILINOGEN UA (BEAKER) (test 0.2 mg/dL 0.2-1.0 code = 463) RBC UA (BEAKER) (test code = 45 /HPF 519) WBC UA (BEAKER) (test code = 3609 /HPF 520) SQUAMOUS EPITHELIAL (BEAKER) 21 /HPF (test code = 516) SOURCE(BEAKER) (test code = 2795) Financial Analyst Accountant ID - techRapid Influenza A&B [id number] 00:43:00 Test Item Value Reference Range Interpretation Comments Rapid Influenza A Antigen Negative Negative, Inconclusive (test code = 93142-1) Rapid influenza B Antigen Negative Negative, Inconclusive (test code = 04543-5) Lab Interpretation (test code Normal = 96240-2) [facility] INFLUENZA A&B [id number] 00:43:00 Test Item Value Reference Range Interpretation Comments RAPID INFLUENZA A AG (BEAKER) Negative Negative, Inconclusive (test code = 1622) RAPID INFLUENZA B AG (BEAKER) Negative Negative, Inconclusive (test code = 1623) [id number] 23:43:00 Test Item Value Reference Range Interpretation Comments TSH (test code = 1.025 0.350- 4.940 uIU/mL 42588-1) HERBIE (test code = HERBIE) Financial Analyst Accountant ID - SHERRY L Lab Interpretation (test Normal code = 89562-1) [facility] HospitalTSH2020-09-[facility] 23:43:00 Test Item Value Reference Range Interpretation Comments THYROID STIMULATING HORMONE 1.025 uIU/mL 0.350-4.940 (BEAKER) (test code = 772) Financial Analyst Accountant ID Shani AHUMADAN [id number] 23:28:00 Test Item Value Reference Range Interpretation Comments TROPONIN I (BEAKER) (test code = 0.08 ng/mL 0.00-0.03 H 397) Troponin I (TnI) levels must be interpreted in the context of the presenting symptoms and the clinical findings. Elevated TnI levels indicate myocardial damage, but are not specific for ischemic heart disease. Elevated TnI levels are seen in patients with other cardiac conditions (including myocarditis and congestive heart failure), and slight TnI elevations occur in patients with other conditions, including sepsis, renal failure, acidosis, acute neurological disease, and persistent tachyarrhythmia.Financial Analyst Accountant ID Shani POWELL LC-Reactive Protein 2020-07-03 23:22:00 Test Item Value Reference Range Interpretation Comments CRP (test code = 676) 0.61 mg/dL 0-0.5 H HERBIE (test code = HERBIE) Financial Analyst Accountant ID Shani POWELL L Lab Interpretation (test Abnormal code = 27961-0) [facility] HospitalIron, TIBC, % sat. (without ferritin)2020-07-03 23:22:00 Test Item Value Reference Range Interpretation Comments Iron (test code = 2498-4) 93.0 ug/dL 40-160 TIBC (test code = 2500-7) 143 ug/dL 250-450 L Iron % Saturation (test 65 % 20-55 H code = 2502-3) HERBIE (test code = HERBIE) Financial Analyst Accountant ID Shani POWELL L Lab Interpretation (test Abnormal code = 52412-6) [facility] HospitalMAGNESIUM2020-09-27 23:22:00 Test Item Value Reference Range Interpretation Comments MAGNESIUM (BEAKER) (test code = 1.8 mg/dL 1.6-2.6 627) Financial Analyst Accountant ID Shani POWELL LC-REACTIVE [id number] 23:22:00 Test Item Value Reference Range Interpretation Comments C-REACTIVE PROTEIN (BEAKER) (test 0.61 mg/dL 0.00-0.50 H code = 676) Financial Analyst Accountant ID Shani OPWELL LCOMPREHENSIVE METABOLIC [id number] 23:22:00 Test Item Value Reference Range Interpretation Comments TOTAL PROTEIN 12.9 gm/dL 6.0-8.3 H (BEAKER) (test code = 770) ALBUMIN (BEAKER) 2.4 g/dL 3.5-5.0 L (test code = 1145) ALKALINE PHOSPHATASE 28 U/L 40-150 L (BEAKER) (test code = 346) BILIRUBIN TOTAL 0.4 mg/dL 0.2-1.2 (BEAKER) (test code = 377) SODIUM (BEAKER) (test 133 meq/L 136-145 L code = 381) POTASSIUM (BEAKER) 4.4 meq/L 3.5-5.1 (test code = 379) CHLORIDE (BEAKER) 107 meq/L 98-107 (test code = 382) CO2 (BEAKER) (test 19 meq/L 22-29 L code = 355) BLOOD UREA NITROGEN 73 mg/dL 7-21 H (BEAKER) (test code = 354) CREATININE (BEAKER) 7.25 mg/dL 0.57-1.25 H (test code = 358) GLUCOSE RANDOM 111 mg/dL 70-105 H (BEAKER) (test code = 652) CALCIUM (BEAKER) 6.9 mg/dL 8.4-10.2 L (test code = 697) AST (SGOT) (BEAKER) 10 U/L 5-34 (test code = 353) ALT (SGPT) (BEAKER) < U/L 6-55 L (test code = 347) EGFR (BEAKER) (test 7 mL/min/1.73 ESTIMAT ED GFR IS code = 1092) sq m NOT ACCURATE CREATININE CLEARANCE IN PREDICTING GLOMERULAR FILTRATION RATE . ESTIMATED GFR I S NOT APPLICABLE FOR DIALYSIS PATIEN TS. Financial Analyst Accountant ID - SHERRY [place], TIBC, % SAT. (WITHOUT FERRITIN)2020-07-03 23:22:00 Test Item Value Reference Range Interpretation Comments IRON (BEAKER) (test code = 547) 93.0 ug/dL 40.0-160.0 TOTAL IRON BINDING CAPACITY 143 ug/dL 250-450 L (BEAKER) (test code = 769) IRON % SATURATION (2) (BEAKER) 65 % 20-55 H (test code = 7672) Financial Analyst Accountant JEANETTE POWELL [id number] 23:19:00 Test Item Value Reference Range Interpretation Comments D-Dimer, Quant (test code 7.31 <0.50 MG/L FEU H = 15385-5) HERBIE (test code = HERBIE) Intended Use: The D-Dimer Assay can be used to aid in the diagnosis of Deep Vein Thrombosis (DVT) and Pulmonary Embolism Disease (PED).In patients with low pre-test probability, various studies concerning STA Liatest D-dimer test have reported that with a cutoff value of 0.50 MG/L FEU, the Negative Predictive Value (NPV) regarding the exclusion of thrombosis is within 95-100% range. Lab Interpretation (test Abnormal code = 56142-5) [facility] HospitalD-[id number] 23:19:00 Test Item Value Reference Range Interpretation Comments D-DIMER QUANTITATIVE (BEAKER) 7.31 MG/L FEU <0.50 H (test code = 671) Intended Use: The D-Dimer Assay can be used to aid in the diagnosis of Deep Vein Thrombosis (DVT) and Pulmonary Embolism Disease (PED).In patients with low pre- test probability, various studies concerning STA Liatest D-dimer test have reported that with a cutoff value of 0.50 MG/L FEU, the Negative Predictive Value (NPV) regarding the exclusion of thrombosis is within 95-100% range. [id number] 23:10:00 Test Item Value Reference Range Interpretation Comments Fibrinogen (test code = 3255-7) 202 mg/dl 225-434 L Lab Interpretation (test code = Abnormal 62465-2) [facility] HospitalFIBRINOGEN2020-09-27 23:10:00 Test Item Value Reference Range Interpretation Comments FIBRINOGEN LEVEL (BEAKER) (test 202 mg/dl 225-434 L code = 658) CBC W/PLT COUNT & AUTO [id number] 22:54:00 Test Item Value Reference Range Interpretation Comments WHITE BLOOD CELL COUNT (BEAKER) 11.3 K/ L 3.5-10.5 H (test code = 775) RED BLOOD CELL COUNT (BEAKER) 2.31 M/ L 3.93-5.22 L (test code = 761) HEMOGLOBIN (BEAKER) (test code = 6.7 GM/DL 11.2-15.7 L 410) HEMATOCRIT (BEAKER) (test code = 21.4 % 34.1-44.9 L 411) MEAN CORPUSCULAR VOLUME (BEAKER) 92.6 fL 79.4-94.8 (test code = 753) MEAN CORPUSCULAR HEMOGLOBIN 29.0 pg 25.6-32.2 (BEAKER) (test code = 751) MEAN CORPUSCULAR HEMOGLOBIN CONC 31.3 GM/DL 32.2-35.5 L (BEAKER) (test code = 752) RED CELL DISTRIBUTION WIDTH 18.6 % 11.7-14.4 H (BEAKER) (test code = 412) PLATELET COUNT (BEAKER) (test 205 K/CU MM 150-450 code = 756) MEAN PLATELET VOLUME (BEAKER) 10.1 fL 9.4-12.3 (test code = 754) NUCLEATED RED BLOOD CELLS 3 /100 WBC 0-0 H (BEAKER) (test code = 413) NEUTROPHILS RELATIVE PERCENT 68 % (BEAKER) (test code = 429) LYMPHOCYTES RELATIVE PERCENT 21 % (BEAKER) (test code = 430) MONOCYTES RELATIVE PERCENT 10 % (BEAKER) (test code = 431) EOSINOPHILS RELATIVE PERCENT 0 % (BEAKER) (test code = 432) BASOPHILS RELATIVE PERCENT 0 % (BEAKER) (test code = 437) NEUTROPHILS ABSOLUTE COUNT 7.68 K/ L 1.56-6.13 H (BEAKER) (test code = 670) LYMPHOCYTES ABSOLUTE COUNT 2.43 K/ L 1.18-3.74 (BEAKER) (test code = 414) MONOCYTES ABSOLUTE COUNT (BEAKER) 1.08 K/ L 0.24-0.36 H (test code = 415) EOSINOPHILS ABSOLUTE COUNT 0.00 K/ L 0.04-0.36 L (BEAKER) (test code = 416) BASOPHILS ABSOLUTE COUNT (BEAKER) 0.03 K/ L 0.01-0.08 (test code = 417) IMMATURE GRANULOCYTES-RELATIVE 1 % 0-1 PERCENT (BEAKER) (test code = 2801) Uric [id number] 22:28:00 Test Item Value Reference Range Interpretation Comments Uric Acid (test code = 7.8 mg/dL 2.6-7.2 H 3084-1) HERBIE (test code = HERBIE) Financial Analyst Accountant ID - DB Lab Interpretation (test Abnormal code = 75818-5) [facility]URIC [id number] 22:28:00 Test Item Value Reference Range Interpretation Comments URIC ACID (BEAKER) (test code = 7.8 mg/dL 2.6-7.2 H 773) Financial Analyst Accountant ID - DBURINALYSIS W/ REFLEX URINE [id number] 21:01:00 Test Item Value Reference Range Interpretation Comments COLOR (BEAKER) (test code = 470) Yellow CLARITY (BEAKER) (test code = 469) Clear SPECIFIC GRAVITY UA (BEAKER) (test 1.013 1.001-1.035 code = 468) PH UA (BEAKER) (test code = 467) 7.5 5.0-8.0 PROTEIN UA (BEAKER) (test code = 200 mg/dL Negative A 464) GLUCOSE UA (BEAKER) (test code = Negative Negative 365) KETONES UA (BEAKER) (test code = Negative Negative 371) BILIRUBIN UA (BEAKER) (test code = Negative Negative 462) BLOOD UA (BEAKER) (test code = 461) Moderate Negative A NITRITE UA (BEAKER) (test code = Negative Negative 465) LEUKOCYTE ESTERASE UA (BEAKER) Moderate Negative A (test code = 466) UROBILINOGEN UA (BEAKER) (test code 0.2 mg/dL 0.2-1.0 = 463) RBC UA (BEAKER) (test code = 519) 0 /HPF WBC UA (BEAKER) (test code = 520) 2 /HPF HYALINE CASTS (BEAKER) (test code = 1 /LPF 514) SOURCE(BEAKER) (test code = 2795) Financial Analyst Accountant ID - [auto]Financial Analyst Accountant ID - techTROPONIN [id number] 20:47:00 Test Item Value Reference Range Interpretation Comments TROPONIN I (BEAKER) (test code = 0.09 ng/mL 0.00-0.03 H 397) Troponin I (TnI) levels must be interpreted in the context of the presenting symptoms and the clinical findings. Elevated TnI levels indicate myocardial damage, but are not specific for ischemic heart disease. Elevated TnI levels are seen in patients with other cardiac conditions (including myocarditis and congestive heart failure), and slight TnI elevations occur in patients with other conditions, including sepsis, renal failure, acidosis, acute neurological disease, and persistent tachyarrhythmia.Financial Analyst Accountant ID - DBB-type Natriuretic Factor (BNP)2020-07-03 20:44:00 Test Item Value Reference Range Interpretation Comments BNP (test code = 32811-0) 682 pg/mL 0-100 H HERBIE (test code = HERBIE) Financial Analyst Accountant ID - DB Lab Interpretation (test Abnormal code = 16326-4) [facility]B-[facility] NATRIURETIC FACTOR (BNP)2020-07-03 20:44:00 Test Item Value Reference Range Interpretation Comments B-TYPE NATRIURETIC PEPTIDE (BEAKER) 682 pg/mL 0-100 H (test code = 700) Financial Analyst Accountant ID - DBCOMPREHENSIVE METABOLIC [id number] 20:43:00 Test Item Value Reference Range Interpretation Comments TOTAL PROTEIN 13.3 gm/dL 6.0-8.3 H (BEAKER) (test code = 770) ALBUMIN (BEAKER) 2.4 g/dL 3.5-5.0 L (test code = 1145) ALKALINE PHOSPHATASE 29 U/L 40-150 L (BEAKER) (test code = 346) BILIRUBIN TOTAL 0.3 mg/dL 0.2-1.2 (BEAKER) (test code = 377) SODIUM (BEAKER) (test 133 meq/L 136-145 L code = 381) POTASSIUM (BEAKER) 4.3 meq/L 3.5-5.1 (test code = 379) CHLORIDE (BEAKER) 107 meq/L 98-107 (test code = 382) CO2 (BEAKER) (test 19 meq/L 22-29 L code = 355) BLOOD UREA NITROGEN 71 mg/dL 7-21 H (BEAKER) (test code = 354) CREATININE (BEAKER) 7.25 mg/dL 0.57-1.25 H (test code = 358) GLUCOSE RANDOM 116 mg/dL 70-105 H (BEAKER) (test code = 652) CALCIUM (BEAKER) 6.4 mg/dL 8.4-10.2 L (test code = 697) AST (SGOT) (BEAKER) 10 U/L 5-34 (test code = 353) ALT (SGPT) (BEAKER) < U/L 6-55 L (test code = 347) EGFR (BEAKER) (test 7 mL/min/1.73 ESTIMAT ED GFR IS code = 1092) sq m NOT ACCURATE CREATININE CLEARANCE IN PREDICTING GLOMERULAR FILTRATION RATE . ESTIMATED GFR I S NOT APPLICABLE FOR DIALYSIS PATIEN TS. Financial Analyst Accountant ID - DBLactic acid, [id number] 19:17:00 Test Item Value Reference Range Interpretation Comments Lactate, Venous (test 1.35 mmol/L 0.5-2.2 Specim en code = 2872) moderately hemolyzed HERBIE (test code = HERBIE) Financial Analyst Accountant ID - AAHAMID Lab Interpretation Normal (test code = 92660-0) [facility] HospitalLACTIC ACID, [id number] 19:17:00 Test Item Value Reference Range Interpretation Comments LACTATE BLOOD VENOUS 1.35 mmol/L 0.50-2.20 Specime n moderately (2) (BEAKER) (test hemolyzed code = 2872) Financial Analyst Accountant ID - AAHAMIDPT/[id number] 19:07:00 Test Item Value Reference Range Interpretation Comments PROTIME (BEAKER) (test code = 17.8 seconds 11.9-14.2 H 759) INR (BEAKER) (test code = 370) 1.51 <=5.90 PARTIAL THROMBOPLASTIN TIME 22.0 seconds 22.5-36.0 L (BEAKER) (test code = 760) Effective 03/04/2019: PT Reference Range ChangeNew: 11.9-14.2 Previous: 11.7- 14.7RECOMMENDED COUMADIN/WARFARIN INR THERAPY RANGESSTANDARD DOSE: 2.0-3.0 Includes: PROPHYLAXIS for venous thrombosis, systemic embolization; TREATMENT for venous thrombosis and/or pulmonary embolus.HIGH RISK: Target INR is2.5-3.5 for patients wiht mechanical heart valves.CBC W/PLT COUNT & AUTO [id number] 19:00:00 Test Item Value Reference Range Interpretation Comments WHITE BLOOD CELL COUNT (BEAKER) 11.8 K/ L 3.5-10.5 H (test code = 775) RED BLOOD CELL COUNT (BEAKER) 2.36 M/ L 3.93-5.22 L (test code = 761) HEMOGLOBIN (BEAKER) (test code = 6.8 GM/DL 11.2-15.7 L 410) HEMATOCRIT (BEAKER) (test code = 21.9 % 34.1-44.9 L 411) MEAN CORPUSCULAR VOLUME (BEAKER) 92.8 fL 79.4-94.8 (test code = 753) MEAN CORPUSCULAR HEMOGLOBIN 28.8 pg 25.6-32.2 (BEAKER) (test code = 751) MEAN CORPUSCULAR HEMOGLOBIN CONC 31.1 GM/DL 32.2-35.5 L (BEAKER) (test code = 752) RED CELL DISTRIBUTION WIDTH 18.3 % 11.7-14.4 H (BEAKER) (test code = 412) PLATELET COUNT (BEAKER) (test 221 K/CU MM 150-450 code = 756) MEAN PLATELET VOLUME (BEAKER) 9.9 fL 9.4-12.3 (test code = 754) NUCLEATED RED BLOOD CELLS 5 /100 WBC 0-0 H (BEAKER) (test code = 413) NEUTROPHILS RELATIVE PERCENT 75 % (BEAKER) (test code = 429) LYMPHOCYTES RELATIVE PERCENT 17 % (BEAKER) (test code = 430) MONOCYTES RELATIVE PERCENT 6 % (BEAKER) (test code = 431) EOSINOPHILS RELATIVE PERCENT 0 % (BEAKER) (test code = 432) BASOPHILS RELATIVE PERCENT 0 % (BEAKER) (test code = 437) NEUTROPHILS ABSOLUTE COUNT 8.85 K/ L 1.56-6.13 H (BEAKER) (test code = 670) LYMPHOCYTES ABSOLUTE COUNT 2.02 K/ L 1.18-3.74 (BEAKER) (test code = 414) MONOCYTES ABSOLUTE COUNT (BEAKER) 0.76 K/ L 0.24-0.36 H (test code = 415) EOSINOPHILS ABSOLUTE COUNT 0.00 K/ L 0.04-0.36 L (BEAKER) (test code = 416) BASOPHILS ABSOLUTE COUNT (BEAKER) 0.02 K/ L 0.01-0.08 (test code = 417) IMMATURE GRANULOCYTES-RELATIVE 1 % 0-1 PERCENT (BEAKER) (test code = 2801) Blood gas, [id number] 18:50:00 Test Item Value Reference Range Interpretation Comments pH, Alli (test code = 2746-6) 7.33 7.32-7.42 pCO2, Alli (test code = 755) 45 41- 51 mmHg pO2, Alli (test code = 3035-2) 37 25- 40 mmHg O2 Sat, Alli (test code = 2711-0) 65.8 % 40-70 HCO3, Alli (test code = 20655-5) 24 mmol/L 21-29 Base Excess, Alli (test code = -2.2 mmol/L -2-3 L 1927-3) Patient Temperature (test code = 37.0 C 8310-5) FIO2 (test code = 1819) 21 % Lab Interpretation (test code = Abnormal 88349-2) [facility] HospitalBLOOD GAS, [id number] 18:50:00 Test Item Value Reference Range Interpretation Comments PH VENOUS (BEAKER) (test code = 7.33 7.32-7.42 701) PCO2 VENOUS (BEAKER) (test code = 45 mmHg 41-51 755) PO2 VENOUS (BEAKER) (test code = 37 mmHg 25-40 702) O2 SATURATION VENOUS (BEAKER) 65.8 % 40.0-70.0 (test code = 703) HCO3 VENOUS (BEAKER) (test code = 24 mmol/L 21-29 705) BASE EXCESS VENOUS (BEAKER) (test -2.2 mmol/L -2.0-3.0 L code = 704) PATIENT TEMPERATURE (BEAKER) 37.0 C (test code = 1818) FIO2 (BEAKER) (test code = 1819) 21.0 % CT, BRAIN, WITHOUT [id number] 18:20:00Reason for exam:- >HYPOTENSIONWhat is the patient's sedation requirement?->No SedationFINAL REPORT CT, BRAIN, WITHOUT CONTRAST CLINICAL INDICATION: Altered mentalstatusHYPOTENSION COMPARISON: None TECHNIQUE: Noncontrast axial CT imaging of the brain and skull. Coronal and sagittal reformats obtained. DOSE REDUCTION: Dose modulation, iterative reconstruction, and/or weight-based adjustment of the mA/kV was utilized to reduce the radiation dose to as low as reasonably achievable. FINDINGS:Cerebral parenchyma: Global parenchymal volume loss and white matter hypoattenuation. No mass, acute intracranial hemorrhage or acute cortical infarct.Cerebellum and brainstem: No acute findings.Ventricles: No acute hydrocephalus.Extra-axial spaces: Unremarkable. Calvarium and skull base: Heterogeneous mineralization with nonaggressive round lucent foci of the calvarium.Paranasal sinuses and mastoid air cells: Imaged chambers are without acute abnormality.Orbital contents: Included portions unremarkable. Additional findings: None. IMPRESSION: No acute intracranial abnormality. Involutional and chronic microangiopathic ischemic changes. Osteopenia with multiple lucent le sions of the calvarium likely venous lakes or hemangiomata but multiple myeloma cannot be excluded. Laboratory correlation is recommended. If there is persistent clinical concern for intracranial pathology, MR examination is recommended for further characterization. Signed: Kb Almendarez Nehal ified Date/Time: 07/03/2020 18:20:13 CT brain without IV [id number] 18:20:00Interface, External Ris In - 07/03/2020 6:[address], BRAIN, WITHOUT CONTRAST CLINICAL INDICATION: Altered mental statusHYPOTENSION COMPARISON: None TECHNIQUE: Noncontrast axial CT imaging of the brain and skull. Coronal and sagittal reformats obtained. DOSE REDUCTION: Dose modulation, iterative reconstruction, and/or weight-based adjustment of the mA/kV was utilized to reduce the radiation dose to as low as reasonably achievable. FINDINGS:Cerebral parenchyma:Global parenchymal volume loss and white matter hypoattenuation. No mass, acute intracranial hemorrhage or acute cortical infarct.Cerebellum and brainstem: No acute findings.Ventricles: No acute hydrocephalus.Extra-axial spaces: Unremarkable. Calvarium and skull base: Heterogeneous mineralization withnonaggressive round lucent foci of the calvarium.Paranasal sinuses and mastoid air cells: Imaged chambers are without acute abnormality.Orbital contents: Included portions unremarkable. Additional findings: None. IMPRESSION: No acute intracranial abnormality. Involutional and chronic microangiopathicischemic changes. Osteopenia with multiple lucent lesions of the calvarium likely venous lakes or hemangiomata but multiple myeloma cannot be excluded. Laboratory correlation is recommended. If there is persistent clinical concern for intracranial pathology, MR examination is recommended for further characterization. Signed: Kb Almendarez Verified Date/Time: 07/03/2020 18:20:13 [facility], NON [id number] 18:09:00Reason for exam:->HYPOTENSIONShould this be performed at the bedside?->YesFINAL REPORT History: Hypotension Comparison: None Findings: Hazy opacities in the bilateral lungs, suggestive of pulmonary edema. Pneumonitis cannot be excluded. No pleural effu sions or pneumothorax. Right central venous catheter tip is in the SVC region. The heart shadow is normal in size. The thoracic aorta is mildly tortuous. Degenerative changes are present in the spine and shoulders. IMPRESSION: Mild pulmonary edema. Signed: Meng Ashley MDReport Verified Date/Time: 07/03/2020 18:09:32 Reading Location: [address] Transitional Reading Room XR chest 1 view portable / [id number] 18:09:00Interface, External Ris In - 07/03/2020 6:11 PM CDTFINAL REPORT History: Hypotension Comparison: None Findings: Hazy opacities in the bilateral lungs, suggestive of pulmonary edema. Pneumonitis cannot be excluded. No pleural effusions or pneumothorax. Right central venous catheter tip is in the SVC region. The heart shadow is normal in size. The thoracic aorta is mildly tortuous. Degenerative changes are present in the spine and shoulders. IMPRESSION: Mild pulmonary edema. Signed: Meng Ashleyort Verified Date/Time: 07/03/2020 18:09:32 Reading Location: [facility] Transitional Reading Room [facility] SARS-COV2/RT-PCR ([facility])2020-05-12 10:19:00 Test Item Value Reference Range Interpretation Comments SARS-COV2/RT-PCR (test Negative Not Detected, Negative, code = [id number]) See external report for linked test SARS-COV-2 PERFORMING LAB [facility] (test code = [id number]) Negative result for this test determines that SARS-CoV-2 RNA was not present in the specimen above the Limit of Detection (LOD). However, Negative results do not preclude SARS-CoV-2 infection and should not be used as the sole basis for treatment or patient management decisions. Negative results mustbe combined with clinical observations, patient history, and epidemiological information. A false negative result may occur if a specimen is improperly collected, transported or handled. A false negative result should be considered if patient's recent exposures or clinical presentation indicate that COVID-19 (SARS-CoV-2) is likely and diagnostic tests for other causes of illness are negative. Re-testing should be considered in cases of suspected false negatives.The limit of detection for this assay is 800 copies/mL.This SARS CoV-2 test is a real-time RT-PCR test intended for the qualitative detection of nucleic acid from SARS-CoV-2 in a nasopharyngeal swab specimen collected from individuals suspected of COVID-19 by their healthcare provider.This test has not been Food and Drug Administration (FDA) cleared or approved. This is a modified version of an approved Emergency Use Authorization (EUA) and is in the process of review by the FDA. Once authorized by the FDA, the issued EUA will be effective until the declaration that circumstances exist justifying the authorization of the emergency use of in vitro diagnostic tests for detection and/or diagnosis of COVID-19 is terminated under Section 564(b)(2) of the Act or the EUA is revoked under Section 564(g) of the Act.Fact Sheet for Healthcare Providers:https://www.eSnipsidel.com/sites/default/files/product/documents/Fact_Shee p_IG_Rvyypfbys_Mlea_FAUF-PvE-5.pdfFact Sheet for Healthcare Patients:https://www.Travel Desiya.com/sites/default/files/product/ documents/Ikpp_Xubij_Uyrafajz_Wkdw_UWOB-AkG-9.pdfPerforming Laboratory:[facility] [place] [address]
[2020-08-17 20:56] LABS: Absolute Lymphocytes (CBC) 5.1 K/uL (0.7-4.9); Hematocrit 26.7 % (36.0-45.0); Lymphocytes % 39.8 % (15.3-44.8); MPV 7.2 fL (7.6-11.3); RBC Red Blood Cell Count 3.04 M/uL (3.86-4.86)
[2020-08-17 21:14] LABS: Magnesium 2.3 mg/dL (1.8-2.4); Potassium 4.5 mmol/L (3.5-5.1)
--- NOTE | 2020-08-17 22:15 | EDPHYS ---
Physician Documentation 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 20:56 Sent for low sodium, is dialysis patient, reports missed last dialysis. Feels ok. No rn vomiting/diarrhea. No headache. NO focal weakness. Per report, slight confusion. Ambulance unable to give more report than that.. Onset: The symptoms/episode began/occurred at an unknown time. Severity of symptoms: At their worst the symptoms were mild in the emergency department the symptoms are unchanged. It is unknown whether or not the patient has had similar symptoms in the past. It is unknown whether or not the patient has recently seen a physician. Historical: - Allergies: 20:55 No Known Allergies; bb - Home Meds: 20:55 Nephro G-tube [Active]; calcium carbonate 500 mg calcium (1,250 mg) oral tab 2 tab bb nightly [Active]; levetiracetam 250 mg oral tab 1 tabs 2 times per day [Active]; losartan potassium 50 mg one time per day hold for SBP<110 DBP<60 or HR<60 [Active]; ondansetron HCl 4 mg oral tab every 8 hours [Active]; pantoprazole 40 mg oral TbEC 1 tab 2 times per day [Active]; ProMod Protein Oral liqd [Active]; valacyclovir 500 mg Oral tab 1 tab once daily [Active]; - PMHx: 20:55 Dialysis; Hypertension; kidney problems; multiple myeloma; bb - Immunization history:: Adult Immunizations unknown. - Social history:: Smoking status: unknown. - Family history:: not pertinent. - Hospitalizations: : No recent hospitalization is reported. - History obtained from: EMS. ROS: 20:56 Constitutional: Negative for fever, chills, and weight loss, Eyes: Negative for injury, rn pain, redness, and discharge, Neck: Negative for injury, pain, and swelling, Cardiovascular: Negative for chest pain, palpitations, and edema, Respiratory: Negative for shortness of breath, cough, wheezing, and pleuritic chest pain, Abdomen/GI: Negative for abdominal pain, nausea, vomiting, diarrhea, and constipation, Back: Negative for injury and pain, MS/Extremity: Negative for injury and deformity, Skin: Negative for injury, rash, and discoloration, Neuro: Negative for headache, numbness, tingling, and seizure. Exam: 20:55 ECG was reviewed by the Attending Physician. rn 20:56 Constitutional: This is a well developed, well nourished patient who is awake, alert, rn and in no acute distress. Head/Face: Normocephalic, atraumatic. ENT: dry MM Chest/axilla: Right sided dialysis catheter Cardiovascular: Tachycardic, regular Respiratory: No increased work of breathing, no retractions or nasal flaring. Abdomen/GI: soft, non-tender, + feeding tube without signs of infection Skin: Warm, dry MS/ Extremity: Pulses equal, no cyanosis. Neuro: Awake and alert, GCS 15, oriented to person, place, and situation. Cranial nerves II-XII grossly intact. Motor strength 4/5 in all extremities. Sensory grossly intact. Vital Signs: 20:46 BP 157 / 117; Pulse 137; Resp 18 S; Temp 98.7(O); Pulse Ox 98% on R/A; Pain 0/10; bb 21:30 BP 156 / 85; Pulse 122; Resp 19; Pulse Ox 99% ; rr5 22:36 BP 149 / 97; Pulse 111; Resp 19; Pulse Ox 99% ; rr5 23:30 BP 139 / 80; Pulse 116; Resp 18; Pulse Ox 98% ; rr5 08/18 00:30 BP 132 / 94; Pulse 110; Resp 16; Pulse Ox 99% ; rr5 MDM: 08/17 20:43 Patient medically screened. rn 22:09 Differential Diagnosis hyponatremia, hypochloremia, dehydration, ESRD. Data reviewed: rn vital signs, nurses notes, old medical records, lab test result(s), EKG, radiologic studies, CT scan, and as a result, I will discharge patient. Counseling: I had a detailed discussion with the patient and/or guardian regarding: the historical points, exam findings, and any diagnostic results supporting the discharge/admit diagnosis, lab results, radiology results, the need for outpatient follow up, to return to the emergency department if symptoms worsen or persist or if there are any questions or concerns that arise at home. Response to treatment: the patient's symptoms have mildly improved after treatment, and as a result, I will discharge patient. Special discussion: I discussed with the patient/guardian in detail that at this point there is no indication for admission to the hospital. It is understood, however, that if the symptoms persist or worsen the patient needs to return immediately for re-evaluation. ED course: Sodium 125, chloride a little low, not 118 like report, in terms of tachycardia daughters report she is "always running high", and not atypical for her. Given metoprolol for high heart rate and elevated BP. Daughters report she has not missed dialysis, and they spoke with dialysis center who did not recommend ER eval, but doctor of home she is living in recommended coming in for eval to be safe. . 22:12 ED course: CT head no acute findings. . rn 08/17 20:44 Order name: CBC with Diff; Complete Time: 21:11 08/17 20:44 Order name: Basic Metabolic Panel; Complete Time: 21:18 08/17 20:44 Order name: Magnesium; Complete Time: 21:18 08/17 20:44 Order name: CT Head Brain wo Cont rn 08/17 20:44 Order name: IV Start; Complete Time: 20:46 08/17 20:44 Order name: EKG; Complete Time: 20:44 rn 08/17 20:44 Order name: EKG - Nurse/Tech; Complete Time: 21:00 rn EC:55 Rate is 126 beats/min. Rhythm is regular. QRS [place] is Normal. ME interval is normal. rn QRS interval is normal. QT interval is normal. No Q waves. T waves are Inverted in leads V2, V3. No ST changes noted. Clinical impression: Sinus tachycardia. Interpreted by me. Reviewed by me. Administered Medications: 21:20 Drug: NS 0.9% 250 ml Route: IV; Rate: bolus; Site: left forearm; rr5 22:36 Follow up: Response: No adverse reaction; IV Status: Completed infusion; IV Intake: rr5 250ml 22:20 Drug: Metoprolol 25 mg Route: PO; 23:20 Follow up: Response: No adverse reaction; Other; HR 113 went down rr5 Disposition: 08/17/20 22:14 Discharged to Home. Impression: Hypo-osmolality and hyponatremia, End stage renal disease. - Condition is Stable. - Discharge Instructions: Hyponatremia, Dialysis, End-Stage Kidney Disease. - Medication Reconciliation Form, Thank You Letter, Antibiotic Education, Prescription Opioid Use, SBAR form form. - Follow up: Private Physician; When: As needed; Reason: Recheck today's complaints, Re-evaluation by your physician. - Problem is new. - Symptoms have improved. Signatures: Dispatcher [employer] EDDestiny Hidalgo RN RN Kevin Llanes MD MD rn Habalo, Winsy wh Roque, Raymond RN RN rr5 Corrections: (The following items were deleted from the chart) 08/18 00:34 08/17 22:14 08/17/2020 22:14 Discharged to Home. Impression: Hypo-osmolality and rr5 hyponatremia; End stage renal disease. Condition is Stable. Forms are Medication Reconciliation Form, Thank You Letter, Antibiotic Education, Prescription Opioid Use. Follow up: Private Physician; When: As needed; Reason: Recheck today's complaints, Re-evaluation by your physician. Problem is new. Symptoms have improved. rn
--- NOTE | 2020-08-17 22:15 | ER ---
Nurse's Notes [facility] Name: Liat Velazquez Age: 74 yrs Sex: Female : 1945 Arrival Date: 08/17/2020 Time: 20:42 Bed 2 Private MD: Diagnosis: Hypo-osmolality and hyponatremia;End stage renal disease Presentation: 08/17 20:46 Chief complaint: EMS states: they were toned out for report of pt with electrolyte bb imbalance. Coronavirus screen: At this time, the client does not indicate any symptoms associated with coronavirus-19. Ebola Screen: No symptoms or risks identified at this time. Initial Sepsis Screen: Does the patient meet any 2 criteria? No. Patient's initial sepsis screen is negative. Does the patient have a suspected source of infection? No. Patient's initial sepsis screen is negative. Risk Assessment: Do you want to hurt yourself or someone else? Patient reports no desire to harm self or others. Onset of symptoms is unknown. 20:46 Method Of Arrival: EMS: Talia ponce 20:46 Acuity: REY 3 bb Historical: - Allergies: 20:55 No Known Allergies; bb - Home Meds: 20:55 Nephro G-tube [Active]; calcium carbonate 500 mg calcium (1,250 mg) oral tab 2 tab bb nightly [Active]; levetiracetam 250 mg oral tab 1 tabs 2 times per day [Active]; losartan potassium 50 mg one time per day hold for SBP<110 DBP<60 or HR<60 [Active]; ondansetron HCl 4 mg oral tab every 8 hours [Active]; pantoprazole 40 mg oral TbEC 1 tab 2 times per day [Active]; ProMod Protein Oral liqd [Active]; valacyclovir 500 mg Oral tab 1 tab once daily [Active]; - PMHx: 20:55 Dialysis; Hypertension; kidney problems; multiple myeloma; bb - Immunization history:: Adult Immunizations unknown. - Social history:: Smoking status: unknown. - Family history:: not pertinent. - Hospitalizations: : No recent hospitalization is reported. - History obtained from: EMS. Screenin:51 Abuse screen: Denies threats or abuse. Denies injuries from another. Nutritional rr5 screening: No deficits noted. Tuberculosis screening: No symptoms or risk factors identified. Fall Risk IV access (20 points). Total Jeter Fall Scale indicates No Risk (0-24 pts). Assessment: 20:45 General: Appears in no apparent distress. comfortable, Behavior is calm, cooperative. rr5 Pain: Denies pain. Neuro: Level of Consciousness is awake, alert, obeys commands, Oriented to person, place. Cardiovascular: Capillary refill < 3 seconds Patient's skin is warm and dry. dialysis port right chest. 20:45 Respiratory: Airway is patent Respiratory effort is even, unlabored, Respiratory rr5 pattern is regular, symmetrical. GI: PEG tube in place, clamped. Site clean. : No signs and/or symptoms were reported regarding the genitourinary system. EENT: No signs and/or symptoms were reported regarding the EENT system. Derm: Skin is fragile, is thin, Skin is dry, Skin temperature is warm. Musculoskeletal: Capillary refill < 3 seconds. 21:40 Reassessment: Patient appears in no apparent distress at this time. Patient and/or 5 family updated on plan of care and expected duration. Pain level reassessed. Patient is alert, oriented x 3, equal unlabored respirations, skin warm/dry/pink. 22:40 Reassessment: Patient appears in no apparent distress at this time. for discharge [facility] awaiting for EMS transport going to [facility]. 23:40 Reassessment: Patient appears in no apparent distress at this time. No changes from [facility] previously documented assessment. awaiting for EMS trasnport. 08/18 00:30 Reassessment: Patient appears in no apparent distress at this time. report given to [address] ambulance awake alert no complaints made. discharge instruction given and explained to wheel cleaner without complaints made. Vital Signs: 08/17 20:46 BP 157 / 117; Pulse 137; Resp 18 S; Temp 98.7(O); Pulse Ox 98% on R/A; Pain 0/10; bb 21:30 BP 156 / 85; Pulse 122; Resp 19; Pulse Ox 99% ; rr5 22:36 BP 149 / 97; Pulse 111; Resp 19; Pulse Ox 99% ; rr5 23:30 BP 139 / 80; Pulse 116; Resp 18; Pulse Ox 98% ; rr5 08/18 00:30 BP 132 / 94; Pulse 110; Resp 16; Pulse Ox 99% ; rr5 ED Course: 08/17 20:42 Patient arrived in ED. rn 20:43 Kevin Butler MD is Attending Physician. rn 20:45 Gil Gonzales, RN is Primary Nurse. rr5 20:46 Inserted saline lock: 20 gauge in left forearm, using aseptic technique. Blood rr5 collected. 20:47 Triage completed. bb 20:51 EKG done, by ED staff, reviewed by Kevin Butler MD. rr5 20:51 Patient has correct armband on for positive identification. Placed in gown. Bed in low rr5 position. Call light in reach. Side rails up X2. chemist internship on. Pulse ox on. NIBP on. 20:55 Arm band placed on Patient placed in an exam room, on a stretcher, on sleeping car service attendant, bb on pulse oximetry. 21:20 Notified ED physician of a critical lab result(s). Creatinine elevated. 21:46 CT Head Brain wo Cont In Process Unspecified. EDFL 22:46 contacted [facility] for transport, 1 hr ETA. al 08/18 00:25 [facility] arrived for transport. al 00:33 No provider procedures requiring assistance completed. IV discontinued, intact, rr5 bleeding controlled, No redness/swelling at site. Pressure dressing applied. Administered Medications: 08/17 21:20 Drug: NS 0.9% 250 ml Route: IV; Rate: bolus; Site: left forearm; rr5 22:36 Follow up: Response: No adverse reaction; IV Status: Completed infusion; IV Intake: rr5 250ml 22:20 Drug: Metoprolol 25 mg Route: PO; 23:20 Follow up: Response: No adverse reaction; Other; HR 113 went down rr5 Intake: 22:36 IV: 250ml; Total: 250ml. rr5 Outcome: 22:14 Discharge ordered by . rn 08/18 00:33 Discharged to [facility] rr5 Condition: stable Discharge instructions given to patient, family, Instructed on discharge instructions, follow up and referral plans. Demonstrated understanding of instructions, follow-up care. 00:34 Patient left the ED. rr5 Signatures: Dispatcher [employer] EDMS Destiny Bloom RN RN bb Nieto, Roman, MD MD rn [facility] Gil Gonzales, APOORVA RN rr5
[2020-08-17] MEDS ORDERED: METOPROLOL TAR 25 MG TAB ONE (22:29)
[2020-08-18 01:00] VITALS: TEMP 98.7
[2020-08-18 01:06] VITALS: BP 132/94; O2SAT 99
--- NOTE | 2020-08-18 14:26 | RAD REPORT ---
EXAM DESCRIPTION: CT Head Without Intravenous Contrast CLINICAL HISTORY: The patient is 74 years old and is Female; CONFUSED TECHNIQUE: Axial computed tomography images of the head/brain without intravenous contrast. Sagitt al and coronal reformatted images were created and reviewed. This CT exam was performed using one o r more of the following dose reduction techniques: automated exposure control, adjustment of the mA and/or kV according to patient size, and/or use of iterative reconstruction technique. COMPARISON: No relevant prior studies available. FINDINGS: Brain: Periventricular and deep white matter hypodensities, most commonly due to nonspec [facility] white matter chronic microvascular ischemia. No acute territorial infarction. No mass lesion. No hemorrhage. Ventricles: Unremarkable. No ventriculomegaly. Bones/joints: Unremarkable. No acute fracture. Soft tissues: Unremarkable. Vasculature: Vascular calcifications. Sinuses: Unremarkable as visualized. No acute sinusitis. Mastoid air cells: Unremarkable as visualized. No mastoid effusion. IMPRESSION: No acute intracranial findings. Mild nonspecific chronic microvascular ischemic changes. Electronically signed by: Anuel Roca MD 08/17/2020 10:00 PM RUBBER PRESS OPERATOR Due to temporary technical issues with the PACS/Fluency reporting system, reports are being signed by the in house radiologists without review as a courtesy to insure prompt reporting. The interpreting radiologist is fully responsible for the content of the report.
--- NOTE | 2020-08-21 07:53 | EKG ---
Test Date: 2020-08-17 Test Time: 20:49:13 Salon Professional: HANG MEASUREMENT RESULTS: Intervals: Rate: 126 [place]: 114 QRSD: 88 QT: 324 QTc: 469 [place]: P: 61 [place]: 114 QRS: 31 T: 207 INTERPRETIVE STATEMENTS: Sinus tachycardia ST & T wave abnormality, consider inferior ischemia ST & T wave abnormality, consider anterolateral ischemia Abnormal ECG Compared to ECG 06/27/2020 14:40:27 Possible ischemia now present ST (T wave) deviation still present Electronically Signed On 08-21-20 07:42:30 BRICKMASON APPRENTICE by Aubrey Canales
== END 2020-08-18 00:34 | disposition home or self-care (01) ==
LOC: ER 20:41
DX: E87.1 Hypo-osmolality and hyponatremia (principal); I12.0 Hypertensive chronic kidney disease with stage 5 chronic kidney disease or end stage renal disease; N18.6 End stage renal disease; Z99.2 Dependence on renal dialysis
CPT/HCPCS: 36415; 70450; 80048; 83735; 85025; 93005; 96365; 99285

== ENCOUNTER 2020-08-24 20:58 | Emergency (ER) | payer OTHER ==
--- OUTSIDE RECORDS SUMMARY | 2020-08-24 21:04 | XMS REPORT | Clinical Summary ---
:1945 Author Organization [facility] Address [address] [place] [address] Care Team Providers Name Role Phone Unavailable [...] 07/03/2020 Travel 05/11/2020 Lab Requisition Lab after 08/24/2019 Social History Tobacco Use Types Packs/Day Years [...] PNEUMOCOCCAL 65+ YRS (1 of 1 - [id number]) 2010 Medicare IPPE (WELCOME TO MEDICARE) [...] are i n the results section. COVID19 ([facility]) Routine 08/05/2020 6:15 Re sults for this AM CDT procedure are i n the results section. SARS-COV2/RT-PCR ([facility] Routine 08/05/2020 6:15 R esults for this [...] are i n the results section. 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 SARS-COV2/RT-PCR ([facility] & STAT 07/03/2020 6:31 PM CDT Results [...] are in the results section . SARS-COV2/RT-PCR ([facility] & Routine 05/11/2020 4:14 PM CDT Results for this REF LABS) procedure are i n the results section . after 08/24/2019 Results POC-Glucose meter (08/05/2020 5:11 PM CDT)Only the most recent of122 results within the time period is included. POC-Glucose Meter 94 70 - 110 mg/dL [facility] Comment: [facility] : TESTED AT [facility] [address] [facility], [address] MEDICAL CENTER : Specialty Food Products Supervisor/Mixed Crop And Livestock Farmer ID = [id number] for BRINA GONZALEZ Specimen Blood Performing Organization Address City/State/Zipcode Phone Number [facility] [address] [place], [place] [phone] CENTER HEMODIALYSIS INPATIENT (08/05/2020 12:38 PM CDT) [...] Component Value Date HEPBSAG Nonreactive 08/04/2020 COVID19 ([facility]) (08/05/2020 6:15 AM CDT) COVID19 ([facility] Negative Negative [facility]) Comment: [facility] The Aptima SARS-CoV-2 Assay combines the technologies of TMA (Music Educator Mediated Amplification) and DKA (Dual Kinetic Assay). It is a qualitative test used for the detection of nucleic acids from SARS-CoV-2 extracted from nasopharyngeal swabs, throat swabs, nasal and nasa l washes. Negative test results may occur in spite of active virus infection. This test was developed by [employer]. and its analytical performance characteristics have been validated by the [facility] pursuant to CLIA regulations. This test has EUA authorization from the Food and Drug Administration ([employer] Aptima SARS-CoV-2 Assay on the [place]). This test was performed at: [facility] Dr. Mary Brito [address] [place] [address] CLIA # [id number] Specimen Other - Nasopharyngeal wall structure (b narinder structure) Performing Organization Address City/State/Zipcode Phone Number [facility] [address] [place], [place] REFERENCE LABORATORY [place], [place] SARS-CoV2/RT-PCR ([facility]) (08/05/2020 6:15 AM CDT)Only the most recent of6 resultswithin the time period is included. SARS-COV2/RT-PCR See external Not Detected, [facility] report for Negative, See [facility] linked test external report MEDICAL CENTER for linked test SARS-COV-2 [facility] PERFORMING LAB [facility] Specimen Other - Nasopharyngeal wall structure (b narinder structure) Performing Organization Address City/[facility]/Zipcode Phone Number [facility] [address] [place] [address] CENTER CBC with platelet count + automated diff (08/05/2020 3:52 AM CDT)Only the most recent of35 resultswithin the time period is included. Pathologist Sig nature WBC 5.6 3.5 - 10.5 [facility] K/L [facility] RBC 2.73 (L) 3.93 - 5.22 [facility] M/L [facility] Hemoglobin 7.9 (L) 11.2 - 15.7 [facility] GM/DL [facility] Hematocrit 25.2 (L) 34.1 - 44.9 % [facility] MCV 92.3 79.4 - 94.8 fL [facility] MCH 28.9 25.6 - 32.2 pg [facility] MCHC 31.3 (L) 32.2 - 35.5 [facility] GM/DL [facility] RDW 17.0 (H) 11.7 - 14.4 % [facility] Platelets 353 150 - 450 K/CU [facility] MPV 9.6 9.4 - 12.3 fL [facility] nRBC 0 0 - 0 /100 WBC [facility] % Neutros 71 % [facility] % Lymphs 27 % [facility] % Monos 2 % [facility] % Eos 0 % [facility] % Baso 0 % [facility] # Neutros 3.93 1.56 - 6.13 [facility] # Lymphs 1.48 1.18 - 3.74 [facility] # Monos 0.11 (L) 0.24 - 0.36 [facility] # Eos 0.00 (L) 0.04 - 0.36 [facility] # Baso 0.01 0.01 - 0.08 [facility] Immature 0 0 - 1 % [facility] Specimen Blood Performing Organization Address City/[facility]/Zipcode Phone Number [address] [address] CENTER Phosphorus (08/05/2020 3:52 AM CDT)Only the most recent of34 resultswithin the time period is included. Pathologist Sig nature Phosphorus 2.5 2.3 - 4.7 mg/dL [facility] Specimen Blood Narrative Performed At Specialty Food Products Supervisor ALDO - DARON [facility] MED ICAL CENTER Performing Organization Address City/[facility]/Zipcode Phone Number [address] [address] CENTER Magnesium (08/05/2020 3:52 AM CDT)Only the most recent of34 resultswithin the time period is included. Pathologist Sig nature Magnesium 2.1 1.6 - 2.6 mg/dL [facility] Specimen Blood Narrative Performed At Specialty Food Products Supervisor ID - DARON JOINT [facility] Performing Organization Address City/[facility]/Zipcode Phone Number [facility] [address] [place] [address] CENTER Basic Metabolic Panel (08/05/2020 3:52 AM CDT)Only the most recent of21 results within the time period is included. Sodium 125 (L) 136 - 145 meq/L [facility] Potassium 4.5 3.5 - 5.1 meq/L [facility] Chloride 99 98 - 107 meq/L [facility] CO2 20 (L) 22 - 29 meq/L [facility] BUN 53 (H) 7 - 21 mg/dL [facility] Creatinine 4.55 (H) 0.57 - 1.25 [facility] mg/dL [facility] Glucose 156 (H) 70 - 105 mg/dL [facility] Calcium 7.9 (L) 8.4 - 10.2 [facility] mg/dL [facility] EGFR 11Comment: ESTIMATED mL/min/1.[address] [facility] GFR IS NOT m [facility] ACCURATE ALLEGAN CREATININE CLEARANCE IN PREDICTING GLOMERULAR FILTRATION RATE. ESTIMATED GFR IS NOT APPLICABLE FOR DIALYSIS PATIENTS. Specimen Blood Narrative Performed At Specialty Food Products Supervisor ID - EDCHANA [facility] Performing Organization Address City/[facility]/Zipcode Phone Number [facility] [address] [place] [address] ALLEGAN Hepatitis B Panel (08/04/2020 6:36 PM CDT) Pathologist Sig nature Hep B Core Total Ab Nonreactive Nonreactive [facility] Hep B S Ab <8.0 <8.0 mIU/mL [facility] HBsAg Screen Nonreactive Nonreactive [facility] Specimen Blood Narrative Performed At Specialty Food Products Supervisor ID - DB JOINT [facility] Performing Organization Address [facility]/[place] Phone Number [facility] [address] [place], [place] [id number] CENTER Hepatitis B core antibody, IgM (08/04/2020 6:36 PM CDT) Pathologist Sig nature Hep B C IgM Nonreactive Nonreactive [facility] Specimen Blood Narrative Performed At Specialty Food Products Supervisor ID - PIAYA L [facility] Performing Organization Address [facility]/[place]ust[place] Phone Number [address] [address] CENTER Manual Differential (08/04/2020 3:54 AM CDT) Pathologist Sig nature % Neutros 87 % [facility] % Lymphs 9 % [facility] % Monos 3 % [facility] % Bands 1 0 - 10 % [facility] # Neutros 3.83 1.56 - 6.13 K/ul [facility] # Lymphs 0.40 (L) 1.18 - 3.74 K/ul [facility] # Monos 0.13 (L) 0.24 - 0.36 K/uL [facility] # Bands 0.04 0.00 - 0.80 K/uL [facility] Total Counted 100 [facility] Platelet Morphology Normal [facility] Smudge Cells Present [facility] Anisocytosis 1+ few [facility] Platelet Conc Adequate [facility] Specimen Blood Narrative Performed At Specialty Food Products Supervisor ID - Jacque Shan [facility] User comments: Slide comments: Performing Organization Address City/[facility]/Zipcode Phone Number [facility] [address] [place] [address] CENTER Immunoglobulin G (IgG) (08/02/2020 3:37 AM CDT)Only the most recent of5 results within the time period is included. Pathologist Sig nature IgG 6,982 (H) 540-1,822 mg/dL [facility] Specimen Blood Narrative Performed At Specialty Food Products Supervisor ID - PIMARGARITA Trotter [facility] Specialty Food Products Supervisor ID - PIMARGARITA Trotter Performing Organization Address [facility]/[place] Phone Number [facility] [address] [place] [address] CENTER [place] / lambda light chains, serum (08/02/2020 3:36 AM CDT)Only the most recent of4 resultswithin the time period is included. [place] Lt 3868.1 (H)Comment: SAMPLE 3.3 - 19.4 [facility] Chain,Free SLIGHTLY HEMOLYZED. mg/L [facility] Lambda Lt 3.0 (L)Comment: SAMPLE 5.7 - 26.3 [facility] Chain,Free SLIGHTLY HEMOLYZED. mg/L [facility] [place]/Lambda,Fr >1000.00 (H) 0.26 - 1.65 [facility] [...] At Performing Lab [facility] EZ [employer] [facility] [place] [address] [place] [address] Jenna Zuñiga MD, PhD, BHARAT Performing Organization Address City/[facility]/Rust[place] Phone Number [place] [address] INCORPORATED [address] [facility] HEMODIALYSIS INPATIENT (08/01/2020 11:56 PM CDT) [...] James FINKN, RN II 7S6- Adult Dialysis [phone] Hepatic function panel (08/01/2020 3:40 AM CDT)Only the most recent of2 results within the time period is included. Pathologist Sig nature Protein, Total 10.9 (H) 6.0 - 8.3 gm/dL [facility] Albumin 2.2 (L) 3.5 - 5.0 g/dL [facility] Total Bilirubin 0.3 0.2 - 1.2 mg/dL [facility] Bilirubin, Direct 0.2 0.1 - 0.5 mg/dL [facility] Alkaline Phosphatase 58 40 - 150 U/L [facility] AST 15 5 - 34 U/L [facility] ALT 6 6 - 55 U/L [facility] Specimen Blood Narrative Performed At Specialty Food Products Supervisor ALDO Trotter [facility] Performing Organization Address City/[facility]/Zipcode Phone Number [address] [address] CENTER Prepare Leuko-Red RBC (07/31/2020 11:54 PM CDT)Only the most recent of5 results within the time period is included. Pathologist Sig loren CROSSMATCH COMPATIBLE [place] Unit ABO B Pos [facility] [place] UNIT NUMBER [id number] [place] Status TX_TIMEINCHART [facility] Blood Bank Product RED BLOOD CELLS [place] PRODUCT CODE [id number] [place] Specimen Other Performing Organization Address [facility]/[place] Phone Number [place] Transfuse Leuko-Red RBC (07/30/2020 10:22 AM CDT)Only the most recent of5 resultswithin the time period is included.Type and screen, automated (07/30/2020 7:54 AM CDT)Only the most recent of2 resultswithin the time period is included. Pathologist Sig loren ABO/RH AUTOMATED B POSITIVE [facility] Ab Scrn NEGATIVE [facility] Specimen Blood Performing Organization Address [facility]/[place] Phone Number [address] [address] Hepatitis B surface antigen (07/30/2020 7:44 AM CDT)Only the most recent of2 resultswithin the time period is included. Pathologist Sig nature HBsAg Screen Nonreactive Nonreactive [facility] Specimen Blood Narrative Performed At Specimen is considered negative for HBsA g. [facility] Performing Organization Address [facility]/Zipcode Phone Number [address] [address] CENTER HEMODIALYSIS INPATIENT (07/26/2020 12:00 [...] included. Pathologist Sig nature ABO Grouping B [facility] DICAL ALLEGAN Rh Factor POS [facility] Specimen Blood Performing Organization Address City/[facility]/[place] Phone Number [address] [address] Antibody screen (07/25/2020 9:35 AM CDT)Only the most recent of3 resultswithin the time period is included. Pathologist Sig nature Ab Scrn NEGATIVE [facility] Specimen Blood Performing Organization Address City/[facility]/Zipcode Phone Number [place] [address] [address] Viscosity, serum (07/25/2020 4:45 AM CDT)Only the most recent of2 resultswithin the time period is included. VISCOSITY, SERUM 2.9 (H) 1.5 - 1.9 Relative [facility] to H2O [facility] Specimen Blood Narrative Performed At Performing Lab [facility] EZ [facility] te [address] [place] [address] Jenna Zuñiga MD, PhD, BHARAT Performing Organization Address City/State/Zipcode Phone Number [facility] [place] [address] INCORPORATED [address] [facility] HEMODIALYSIS INPATIENT (07/23/2020 8:06 PM CDT) [...] James VILLAFUERTE, RN II 7S6- Adult Dialysis [phone] REPORT OF PROCEDURE - ENDOSCOPY URL (07/21/2020 3:42 PM CDT) Narrative Performed At This result has an attachment that is no t available. PT/aPTT (07/21/2020 4:37 AM CDT)Only the most recent of3 resultswithin the time period is included. Pathologist Sig nature Protime 17.4 (H) 11.9 - 14.2 seconds [facility] INR 1.47 <=5.90 [facility] PTT 25.2 22.5 - 36.0 seconds [facility] Specimen Blood Narrative Performed At Effective 03/04/2019: PT Reference Range [facility] Change New: 11.9-14.2 Previous: 11.7-14.7 RECOMMENDED COUMADIN/WARFARIN INR THERAPY RANGES STANDARD DOSE: 2.0-3.0 Includes: PROPHYLAXIS for venous thrombosis, systemic embolization; TREATMENT for venous thrombosis and/or pulmonary embolus. HIGH RISK: Target INR is 2.5-3.5 for patients wiht mechanical heart valves. Performing Organization Address City/State/Zipcode Phone Number [facility] [address] [place] [address] CENTER CBC (Hemogram only) (07/19/2020 3:39 AM CDT) Pathologist Sig nature WBC 5.7 3.5 - 10.5 K/L [facility] RBC 2.96 (L) 3.93 - 5.22 M/L [facility] Hemoglobin 8.3 (L) 11.2 - 15.7 GM/DL [facility] Hematocrit 25.9 (L) 34.1 - 44.9 % [facility] MCV 87.5 79.4 - 94.8 fL [facility] MCH 28.0 25.6 - 32.2 pg [facility] MCHC 32.0 (L) 32.2 - 35.5 GM/DL [facility] RDW 17.3 (H) 11.7 - 14.4 % [facility] Platelets 183 150 - 450 K/CU MM [facility] MPV 10.7 9.4 - 12.3 fL [facility] nRBC 0 0 - 0 /100 WBC [facility] Specimen Blood Performing Organization Address City/State/Zipcode Phone Number [facility] [address] [place] [address] CENTER HEMODIALYSIS INPATIENT (07/18/2020 11:00 [...] James VILLAFUERTE, RN II 7S6- Adult Dialysis [phone] ECG 12 lead (07/18/2020 12:41 PM CDT)Only the most recent of5 resultswithin the time period is included. Specimen Narrative Performed At Ventricular Rate 70 BPM GE MUSE Atrial Rate 70 BPM P-R Interval 110 ms QRS Duration 100 ms Q-T Interval 460 ms QTC Calculation(Bazett) 496 ms P [place] 40 degrees R [place] 35 degrees T [place] 62 degrees Sinus rhythm with short MS T wave inversion V3-V4 consider postisch emic [...] 460 ms QTC Calculation(Bazett) 496 ms P [place] 40 degrees R [place] 35 degrees T [place] 62 degrees Sinus rhythm with short MS T wave inversion V3-V4 consider postisch emic changes Prolonged QT Abnormal ECG When compared with ECG of 16-JUL-2020 16 :17, T waves are no longer negative in V1-V2 Confirmed by MD HUERTA YOCHAI ([id number]) on 07/23/2020 7:05:52 AM Performing Organization Address City/State/Zipcode Phone Number [facility] IR Tunneled Catheter Insertion (07/18/2020 11:40 AM CDT) Specimen Narrative Performed At FINAL REPORT [place] PROCEDURE: Tunneled hemodialysis cathete r Placement CLINICAL HISTORY: esrd SENIOR MEDICAL DIRECTOR: Jayden Villareal DO, JD ANESTHESIA: Conscious sedation [...] vena cava. Under fluoroscopic guidance, a 15 Georgian peel-away sheath was advanced over the wire. [...] Report Verified Date/Time: 07/18/2020 11:50:32 Reading Location: [place] [address] Angio Body Reading Room Procedure Note Interface, External Ris In - 07/18/2020 12:02 PM CDT FINAL REPORT PROCEDURE: Tunneled hemodialysis cathete r Placement CLINICAL HISTORY: esrd SENIOR MEDICAL DIRECTOR: Jayden Villareal DO, RONNIE ANESTHESIA: Conscious sedation [...] vena cava. Under fluoroscopic guidance, a 15 Georgian peel-away sheath was advanced over the wire. [...] Verified Date/Time: 07/18/2020 1 1:50:32 Reading Location: [place] [address] Angio Body Reading Room Performing Organization Address City/State/Zipcode Phone Number GE RIS Comprehensive metabolic panel (07/17/2020 5:17 AM CDT)Only the most recent of16 resultswithin the time period is included. Protein, Total 14.0 (H) 6.0 - 8.3 [facility] gm/dL [facility] Albumin 2.6 (L) 3.5 - 5.0 [facility] g/dL [facility] Alkaline 43 40 - 150 U/L [facility] Phosphatase [facility] Total Bilirubin 0.4 0.2 - 1.2 [facility] mg/dL [facility] Sodium 127 (L) 136 - 145 [facility] meq/L [facility] Potassium 4.1 3.5 - 5.1 [facility] meq/L [facility] Chloride 101 98 - 107 [facility] meq/L [facility] CO2 21 (L) 22 - 29 meq/L [facility] BUN 38 (H) 7 - 21 mg/dL [facility] Creatinine 6.38 (H) 0.57 - 1.25 [facility] mg/dL [facility] Glucose 65 (L) 70 - 105 [facility] mg/dL [facility] Calcium 6.9 (L) 8.4 - 10.2 [facility] mg/dL [facility] AST 18 5 - 34 U/L [facility] ALT 10 6 - 55 U/L [facility] EGFR 8Comment: mL/min/1.73 [facility] ESTIMATED GFR IS sq [facility] NOT ACCURATE MEDICAL CENTER CREATININE CLEARANCE IN PREDICTING GLOMERULAR FILTRATION RATE. ESTIMATED GFR IS NOT APPLICABLE FOR DIALYSIS PATIENTS. Specimen Blood Narrative Performed At Specialty Food Products Supervisor ID - PIAYA L [facility] ICAL CENTER Performing Organization Address City/State/Zipcode Phone Number [facility] [address] [place] [address] CENTER TRANSFUSION SERVICE REPORT - [...] and removing her gown, suggested to 7 [place] nurse Adali RN during report that patient would benefit with a sitter to [employer] for her safety. Treatment fairly tolerated. Nella [...] James VILLAFUERTE, RN II 7S6- Adult Dialysis [phone] Type and screen (07/12/2020 6:28 AM CDT) Pathologist Sig nature Ab Scrn NEGATIVEComment: [facility] PEG [facility] ABO Grouping B [facility] Rh Factor POS [facility] Specimen Blood Performing Organization Address City/[facility]/Zipcode Phone Number [facility] [address] [place] [address] Immunofixation electrophoresis (VERÓNICA) (07/11/2020 5:46 AM CDT)Only the most recent of2 resultswithin the time period is included. IgG 10,294 (H) 540-1,822 [facility] mg/dL [facility] IgA 20 (L) 63 - 484 [facility] mg/dL [facility] IgM 19 (L) 22 - 293 [facility] mg/dL [facility] Serum VERÓNICA IgG-kappa, [facility] Identification monoclonal [facility] Pathologist: Jessy [facility] MD Doug [facility] (electronic MEDICAL CENTER signature) Specimen Blood Narrative Performed At Specialty Food Products Supervisor ID - MJ Mercado [facility] MED [facility]AL CENTER Performing Organization Address City/[facility]/Zipcode Phone Number [facility] [address] [place] [address] CENTER Protein electrophoresis, serum (07/11/2020 5:46 AM CDT)Only the most recent of2 resultswithin the time period is included. Albumin Fraction 3.8 3.5 - 5.5 [facility] g/dL [facility] Alpha 1 Fraction 0.5 (H) 0.2 - 0.4 [facility] g/dL [facility] Alpha 2 Fraction 1.4 (H) 0.5 - 0.9 [facility] g/dL [facility] Beta Fraction 1.5 (H) 0.6 - 1.1 [facility] g/[facility] Gamma Globulin 7.9 (H) 0.7 - 1.7 [facility] [address] [facility] Fraction g/dL [facility] Interpretation Previously [facility] reported [facility] monoclonal band MEDICAL CENTER present. No significant changes. Pathologist: Jessy Meyer MD [facility] (electronic MEDICAL CENTER signature) Protein, Total 15.0 (H) 6.0 - 8.3 [facility] [address] [facility] gm/dL [facility] Specimen Blood Narrative Performed At Specialty Food Products Supervisor ID - MOOSE Lucila [facility] MED ICAL CENTER Performing Organization Address City/State/Zipcode Phone Number [facility] [address] [place] [address] CENTER XR abdomen / KUB [...] Report Verified Date/Time: 07/08/2020 17:42:18 Reading Location: [facility] C013W [facility] Procedure Note Interface, External Ris In - [...] Verified Date/Time: 07/08/2020 1 7:42:18 Reading Location: [facility] B1 C013W [facility] Room Performing Organization Address City/State/Zipcode Phone Number [place] MR brain without IV contrast (07/08/2020 9:54 AM CDT) Specimen Narrative Performed At FINAL REPORT [place] MR, BRAIN, WITHOUT CONTRAST INDICATION: Altered mental [...] Report Verified Date/Time: 07/08/2020 10:39:36 Reading Location: [facility] B1 C013V Neuro [facility] Room Procedure Note Interface, External Ris In [...] Verified Date/Time: 07/08/2020 1 0:39:36 Reading Location: [facility] B1 C013V Neuro Jasmin ding Room Performing Organization Address City/State/Zipcode Phone Number GE RIS Ammonia (07/07/2020 11:18 AM CDT) Pathologist Sig nature Ammonia 34 18 - 72 mol/L [facility] Specimen Blood Narrative Performed At [employer] Supervisor ID - AAHAMID [facility] Performing Organization Address City/State/Zipcode Phone Number [facility] [address] [place] [address] CENTER EEG 2-12 HR Continuous Monitoring with Video (07/06/2020 5:48 PM CDT) Specimen Narrative Performed At Video EEG report [facility] GE RIS DATE OF TEST: 07/06/2020 DATE OF REPORT: 07/06/2020 ACC: [id number] Start time: 8:02 AM Stop time: 5:48 PM ICD-10: R56.0 CPT: 79978 HISTORY: 74 y.o. female with PMH of HSV, HTN, recently diagnosed multiple myeloma and ESRD presenting wit altered mental status. MEDICATIONS: Keppra, ativan, vancomycin, dilaudid, maxipine, protonix, heparin TECHNICAL SUMMARY: This is a digital video EEG recorded [facility] 32 input channels reviewed with bipolar and [...] pattern. Aleyda Donahue MD Clinical Neurophysiology/Epilepsy Attend [facility] Procedure Note Interface, External Ris In - 07/07/2020 3:19 PM CDT Video EEG report [facility] DATE OF TEST: 07/06/2020 DATE OF REPORT: 07/06/2020 ACC: [id number] Start time: 8:02 AM Stop time: 5:48 PM ICD-10: R56.0 CPT: 20111 HISTORY: 74 y.o. female with PMH of HSV, HTN, recently diagnosed multiple myeloma and ESRD presenting [facility] altered mental status. MEDICATIONS: Keppra, ativan, vancomycin, dilaudid, maxipine, protonix, heparin TECHNICAL SUMMARY: This is a digital video EEG recorded [facility] 32 input channels reviewed with bipolar and [...] ing Performing Organization Address City/State/Zipcode Phone Number [facility] EEG 12-26 HR Continuous Monitoring with Video (07/06/2020 7:00 AM CDT) Specimen Narrative Performed At Video EEG report [facility] DATE OF TEST: 07/05/2020 DATE OF REPORT: 07/06/2020 ACC: [id number] Start time: 12:02 PM 07/05/2020 Stop time: 8:02 AM 07/06/2020 ICD-10: R56.0 CPT: 84783 HISTORY: 74 y.o. female with PMH of HSV, HTN, recently diagnosed multiple myeloma and ESRD presenting wit h altered mental status. MEDICATIONS: Keppra, ativan, vancomycin, dilaudid, maxipine, protonix, heparin TECHNICAL SUMMARY: This is a digital video EEG recorded [facility] 32 input channels reviewed with bipolar and [...] 07/06/2020 11:53 AM CDT Video EEG report [facility] DATE OF TEST: 07/05/2020 DATE OF REPORT: 07/06/2020 ACC: [id number] Start time: 12:02 PM 07/05/2020 Stop time: 8:02 AM 07/06/2020 ICD-10: R56.0 CPT: 05436 HISTORY: 74 y.o. female with PMH of HSV, HTN, recently diagnosed multiple myeloma and ESRD presenting wit h altered mental status. MEDICATIONS: Keppra, ativan, vancomycin, dilaudid, maxipine, protonix, heparin TECHNICAL SUMMARY: This is a digital video EEG recorded [facility] 32 input channels reviewed with bipolar and [...] Clinical Neurophysiology/Epilepsy Attend ing Performing Organization Address City/[facility]/[place] Phone Number [facility] Vitamin D, 25-Hydroxy (07/06/2020 5:40 AM CDT) Pathologist Sig nature Vitamin D 25-Hydroxy 39.0 6.6 - 49.9 ng/mL [facility] Specimen Blood - Entire left upper arm (body stru cture) Narrative Performed At Effective 07/17/2017: Reference Range Ch umu [facility] New: 6.6-49.9 ng/mL Previous: 13.0-47.8 ng/mL Recommended Vitamin D Target Range: 30.0-40.0 ng/mL [employer] Supervisor ID Shani MOOSE Gaytan Performing Organization Address [facility]/[place] Phone Number [address] [address] CENTER Triglycerides (07/06/2020 5:40 AM CDT) Pathologist Sig nature Triglycerides 173 mg/dL [facility] Specimen Blood - Entire left upper arm (body stru cture) Narrative Performed At TRIGLYCERIDE REFERENCE RANGE [facility] Low Risk <150 Borderline Risk 150-199 High Risk 200-499 Very High Risk >=500 [employer] Supervisor ALDO Shani Gaytan Performing Organization Address [facility]/[place] Phone Number [place] [phone] [place] [address] CENTER Prealbumin (07/06/2020 5:40 AM CDT) Pathologist Sig nature Prealbumin 25 14 - 45 mg/dL [facility] Specimen Blood - Entire left upper arm (body stru cture) Narrative Performed At [employer] Supervisor ID - [facility] Performing Organization Address [facility]/[place] Phone Number [address] [address] CENTER PTH, intact (07/06/2020 5:40 AM CDT) Pathologist Sig nature PTH 591.5 (H) 8.5 - 72.5 pg/mL [facility] Specimen Blood - Entire left upper arm (body stru cture) Narrative Performed At [employer] Supervisor ID - [facility] Performing Organization Address [facility] Phone Number [address] [address] CENTER EKG-SCANNED (07/05/2020 10:45 AM CDT)Only the most recent of2 resultswithin the time period is included. Narrative Performed At This result has an attachment that is no t available. EEG 12-26 HR Continuous Monitoring with Video (07/05/2020 6:09 AM CDT) Specimen Narrative Performed At ELECTROENCEPHALOGRAM [facility] CONTINUOUS EEG VIDEO BEDSIDE MONITORING STUDY PATIENT NAME: LIAT VELÁSQUEZ START TIME: 11:42 AM, [facility]2019 END TIME: 12:02 P M, 2019 REPORT DATE: CPT: 63679 ICD10: R56.9 PATIENT HX: Patient with encephalopathy [...] SEPT MBER 2019 REPORT DATE: 2019 CPT: 54311 ICD10: R56.9 PATIENT HX: Patient with encep [...] recorded. Joanna Anthony MD Performing Organization Address City/[facility]/[place] Phone Number RIS Immunoglobulin A (IgA) (07/05/2020 4:59 AM CDT) Pathologist Sig nature IgA 29 (L) 63 - 484 mg/dL [facility] CENTER Specimen Blood - Entire left upper arm (body stru cture) Narrative Performed At [employer] Supervisor ID - SHERRY Trotter [facility] Performing Organization Address [facility]/Zipcode Phone Number [facility] [address] [place] [address] CENTER Immunoglobulin M (IgM) (07/05/2020 4:59 AM CDT) Pathologist Sig nature IgM 20 (L) 22 - 293 mg/dL [facility] Specimen Blood - Entire left upper arm (body stru cture) Narrative Performed At [employer] Supervisor ID - PIAYA L [facility] Performing Organization Address [facility]/Zipcode Phone Number [address] [address] CENTER Vancomycin level, random (07/04/2020 5:38 PM CDT) Pathologist Sig nature Vancomycin Rm 15.9 ug/mL [facility] DICAL [place] Specimen Blood Narrative Performed At Reference Range: No Normals [facility] [employer] Supervisor ID - DB Performing Organization Address [facility]/[place] Phone Number [address] [address] CENTER Troponin I (07/04/2020 5:07 AM CDT)Only the most recent of3 resultswithin the time period is included. Pathologist Sig nature Troponin I 0.08 (H) 0.00 - 0.03 ng/mL [facility] Specimen Blood Narrative Performed At Troponin I (TnI) levels must be interpreted [facility] in the context of the presenting symptoms and the clinical findings. Elevated TnI levels indicate myocardial damage, but are not specific for ischemic heart disease. Elevated TnI levels are seen in patients with other cardiac conditions (including myocarditis and congestive heart failure), and slight TnI elevations occur in patients with other conditions, including sepsis, renal failure, acidosis, acute neurological disease, and persistent tachyarrhythmia. [employer] Supervisor ID - PIAYA L Performing Organization Address City/[facility]/Zipcode Phone Number [address] [address] CENTER Venous doppler legs bilateral (07/04/2020 1:13 AM CDT) Pathologist Sig nature Ejection Fraction [facility] ECHO HEARTLAB MKCK ESSON CPACS Specimen Impressions Performed At Right Impression [facility] ECHO HEARTLAB MKCKESSON CPACS 1. [...] At LAB - Lower Extremities DVT Study [facility] ECHO HEARTLAB CKESSON [facility] Demographics Patient Name [facility] Date of Study 07/04/2020 SAMANTHA Age 74 Visit Number [id number] Gender Female Accession Number [id number] Date of 1945 Referring Ari Amaya Room Number 734 Physician MD Le Pasteurizer Sean Snyder Interpreting Lux [place]kins Physician Procedure [...] Study 07/04/2020 SAMANTHA Age 74 Visit Number [id number] Gen anila Female Accession Number [id number] Ethan e of 1945 Referring Ari March m Number 734 Physician MD Le Pasteurizer Sean Snyder [facility] Patience Ybarra MD Phy sician Procedure Type [...] are measured in cm Performing Organization Address City/State/[place] Phone Number [facility] ECHO HEARTLAB MKCKESSON [facility] Urinalysis w/Microscopic + Reflex to Culture (07/04/2020 1:01 AM CDT)Only the most recent of2 resultswithin the time period is included. Color, UA Light [place] [facility] Clarity, UA Cloudy [facility] Specific [place], 1.010 1.001 - 1.035 [facility] pH, UA 7.0 5.0 - 8.0 [facility] Protein, UA 200 mg/dL (A) Negative [facility] Glucose, UA Negative Negative [facility] Ketones, UA Negative Negative [facility] Bilirubin, UA Negative Negative [facility] Blood, UA Moderate (A) Negative [facility] Nitrite, UA Negative Negative [facility] Leukocytes, UA Large (A) Negative [facility] Urobilinogen, UA 0.2 0.2 - 1.0 mg/dL [facility] RBC, UA 45 /HPF [facility] WBC, UA 3,609 /HPF [facility] Squam Epithel, UA 21 /HPF [facility] Specimen Source [facility] Specimen Urine Narrative Performed At [employer] Supervisor ID - tech [facility] Performing Organization Address City/State/Zipcode Phone Number [facility] [address] [place] [address] CENTER Urine culture (07/04/2020 1:01 AM CDT) Pathologist Sig nature Result >100,000 col/mL Enterococcus faecalis [facility] (A) Specimen Urine Organism Antibiotic Method Susceptibility Enterococcus faecalis Ampicillin <=2: Susce ptible Enterococcus faecalis Linezolid 2: Suscept ible Enterococcus faecalis Nitrofurantoin <=16: Susc eptible Enterococcus faecalis Tetracycline >=16: Resi stant Enterococcus faecalis Vancomycin 1: Suscept ible Performing Organization Address City/State/Zipcode Phone Number [facility] [address] [place] [address] CENTER Respiratory Panel [facility] (07/03/2020 10:43 PM CDT) Human Metapneumovirus Not detected Not detected, [facility] Rhinovirus Not detected Not detected, [facility] Influenza A Not detected Not detected, [facility] INFLUENZA A (NO [facility] SUBTYPE) [facility] Influenza A subtype H1 [facility] Influenza A Subtype H3 [facility] Influenza A Subtype [facility] H1-2009 [facility] Influenza B Not detected Not detected, [facility] Respiratory Syncytial Not detected Not detected, [facility] Virus [facility] Parainfluenza Virus 1 Not detected Not detected, [facility] Parainfluenza Virus 2 Not detected Not detected, [facility] Parainfluenza virus 3 Not detected Not detected, [facility] Parainfluenza Virus 4 Not detected Not detected, [facility] Adenovirus Not detected Not detected, [facility] Coronavirus 229E Not detected Not detected, [facility] Coronavirus HKU1 Not detected Not detected, [facility] Coronavirus NL63 Not detected Not detected, [facility] Coronavirus OC43 Not detected Not detected, [facility] Bordetella Pertussis Not detected Not detected, [facility] Chlamydophila Not detected Not detected, [facility] Pneumoniae [facility] Mycoplasma Pneumoniae Not detected Not detected, [facility] Equivocal [facility] Specimen Nasopharyngeal - Nasopharyngeal wall str ucture (body structure) Narrative Performed At Other viruses and bacteria not targeted by [facility] this PCR panel cannot be excluded; therefore clinical correlation and follow up of serology, culture results, and other molecular studies is required. The results are not intended to be used as the sole means for clinical diagnosis or patient management decisions. This sample was tested at the [facility] Molecular Diagnostics Laboratory using the [employer] FilmArray Respiratory Panel. It is FDA cleared and has been verified and approved by the [facility] Molecular Diagnostics Laboratory for clinical use on nasopharyngeal swab specimens. The performance of the FilmArray RP has not been established in individuals who received influenza vaccine. Recent administration of a nasal influenza vaccine may cause false positive results for Influenza A and/or Influenza B. Performing Organization Address City/[facility]/Zipcode Phone Number [address] [address] CENTER Rapid Influenza A&B Screen (07/03/2020 10:43 PM CDT) Rapid Influenza A Negative Negative, [facility] Antigen Inconclusive [facility] Rapid influenza B Negative Negative, [facility] Antigen Inconclusive [facility] Specimen Nasal - Nasopharyngeal wall structure (b narinder structure) Performing Organization Address [facility]/[place] Phone Number [address] [address] CENTER Iron, TIBC, % sat. (without ferritin) (07/03/2020 10:39 PM CDT) Pathologist Sig nature Iron 93.0 40.0 - 160.0 ug/dL [facility] TIBC 143 (L) 250 - 450 ug/dL [facility] Iron % Saturation 65 (H) 20 - 55 % [facility] Specimen Blood Narrative Performed At [employer] Supervisor ID - PIAYA L [facility] Performing Organization Address [facility]/Zipcode Phone Number [address] [address] CENTER C-Reactive Protein (07/03/2020 10:39 PM CDT) Pathologist Sig nature CRP 0.61 (H) 0.00 - 0.50 mg/dL [facility] Specimen Blood Narrative Performed At [employer] Supervisor ID - CHRISTIANMARGARITA Trotter [facility] Performing Organization Address City/[facility]/[place] Phone Number [address] [address] [place] Fibrinogen (07/03/2020 10:39 PM CDT) Pathologist Sig [facility] Fibrinogen 202 (L) 225 - 434 mg/dl [facility] Specimen Blood Performing Organization Address [facility] Phone Number [address] [address] [place] D-dimer (07/03/2020 10:39 PM CDT) Pathologist Sig [facility] D-Dimer, Quant 7.31 (H) <0.50 MG/L FEU [facility] Specimen Blood Narrative Performed At Intended Use: The D-Dimer Assay can be used [facility] to aid in the diagnosis of Deep Vein Thrombosis (DVT) and Pulmonary Embolism Disease (PED). In patients with low pre-test probability, various studies concerning STA Liatest D-dimer test have reported that with a cutoff value of 0.50 MG/L FEU, the Negative Predictive Value (NPV) regarding the exclusion of thrombosis is within 95-100% range. Performing Organization Address City/[facility]/[place] Phone Number [address] [address] CENTER TSH (07/03/2020 10:39 PM CDT) Pathologist Sig nature TSH 1.025 0.350 - 4.940 uIU/mL [facility] Specimen Blood Narrative Performed At [employer] Supervisor ID - SHERRY L [facility] Performing Organization Address City/[facility]/[place] Phone Number [facility] [address] CENTER T4 (07/03/2020 10:39 PM CDT) Pathologist Sig nature T4, Total 5.1 4.9 - 11.7 ug/dL [facility] Specimen Blood Narrative Performed At [employer] Supervisor ID - PIAYA L [facility] Performing Organization Address City/[facility]/[place] Phone Number [address] [address] CENTER Ferritin (07/03/2020 10:39 PM CDT) Pathologist Sig nature Ferritin 2,365.63 (H) 5.00 - 275.00 ng/mL [facility] Specimen Blood Narrative Performed At [employer] Supervisor ID - PIAYA L [facility] Performing Organization Address City/[facility]/[place] Phone Number [address] [address] CENTER Uric acid (07/03/2020 8:02 PM CDT) Pathologist Sig nature Uric Acid 7.8 (H) 2.6 - 7.2 mg/dL [facility] Specimen Blood Narrative Performed At [employer] Supervisor ID - DB [facility] Performing Organization Address [facility]/[place] Phone Number [address] [address] CENTER B-type Natriuretic Factor (BNP) (07/03/2020 8:02 PM CDT) Pathologist Sig nature BNP 682 (H) 0 - 100 pg/mL [facility] Specimen Blood Narrative Performed At [employer] Supervisor ID - [facility] Performing Organization Address City/[facility]/[place] Phone Number [address] [address] CENTER Lactic acid, venous (07/03/2020 6:31 PM CDT) Lactate, Venous 1.35Comment: 0.50 - 2.20 [facility] Specimen moderately mmol/L [facility] hemolyzed [facility] Specimen Blood Narrative Performed At [employer] Supervisor ID - AAJOLENE [facility] Performing Organization Address City/[facility]/Zipcode Phone Number [address] [address] [place] Blood Culture - Routine (Left Venipuncture) (07/03/2020 6:31 PM CDT)Only the most recent of2 resultswithin the time period is included. Pathologist Sig nature Result No growth in 5 days [facility] Specimen Blood - Entire left upper arm (body stru cture) Performing Organization Address [facility]/[place] Phone Number [address] [address] [place] Blood gas, venous (07/03/2020 6:31 PM CDT) Pathologist Sig nature pH, Alli 7.33 7.32 - 7.42 [facility] pCO2, Alli 45 41 - 51 mmHg [facility] pO2, Alli 37 25 - 40 mmHg [facility] O2 Sat, Alli 65.8 40.0 - 70.0 % [facility] HCO3, Alli 24 21 - 29 mmol/L [facility] Base Excess, Alli -2.2 (L) -2.0 - 3.0 [facility] mmol/L [facility] Patient Temperature 37.0 C [facility] FIO2 21.0 % [facility] Specimen Blood - Venous line (physical object) Performing Organization Address City/[facility]/Zipcode Phone Number [address] brain without IV contrast (07/03/2020 6:09 [...] 8:20:13 Performing Organization Address City/State/Zipcode Phone Number [place] XR chest 1 view portable / bedside (07/03/2020 5:35 PM CDT) Specimen Narrative Performed At FINAL REPORT [facility] History: Hypotension Comparison: None Findings: Hazy opacities [...] Report Verified Date/Time: 07/03/2020 18:09:32 Reading Location: [address] [facility] Reading Room Procedure Note Interface, External Ris [...] Verified Date/Time: 07/03/2020 1 8:09:32 Reading Location: [address] [facility] Reading Room Performing Organization Address City/State/Zipcode Phone Number GE RIS after 08/24/2019 Insurance Payer Benefit Plan / Subscriber ID Effective Phone Address T ype Group Dates [employer] [id number] 2019-Pre [facility] [place] Contracted (Home) [address] [place] [phone] Advance Directives For more information, please contact: [phone] Code Status Date Activated Date Inactivated Comments Full Code 07/03/2020 10:00 PM 08/05/2020 8:18 PM This code status was determined by: Patient
--- OUTSIDE RECORDS SUMMARY | 2020-08-24 21:14 | XMS REPORT | Continuity of Care Document ---
:1945 Author Organization [facility] t Address [address] [place] [address] Care Team Providers Name Role Phone Jordin RODRIGUEZ Attending Clinician Shasta Stephenson MD Attending Clinician Sabrina Hahn MD Attending Clinician Jon Michael MD Attending Clinician Nirali RODRIGUEZ Attending Clinician Cynthia Shultz MD Attending Clinician Elsy Morrell MD Attending Clinician Jayson Santos MD Attending Clinician [phone] JORDIN Attending Clinician Unavailable SHASTA STEPHENSON Admitting Clinician Unavailable Payers Payer Name Policy Type Policy Effective Date Expiration Date Sour ce Number CIGNA [id number] [facility] [place] [id number] 2020-Pr esentMaps Contracted Problems Condition Condition Condition [...] Medical 00 Center ESRD ESRD Disease Active [facility] needing [facility] - dialysis dialysis Medica l Center Allergies, Adverse Reactions, Alerts This patient has no known allergies or adverse reactions. Social History Social Habit Start Date Stop Date Quantity Comments Source History [facility] - [facility] Std Drinks Medica l Center History [facility] - Alcohol Binge Medical Harika ter Sex Assigned At [facility] kes [facility] Tobacco use and 2020-07-21 2020-07-[address] [facility] - exposure 00:00:00 00:00:00 [facility] Alcohol intake 2020-07-21 2020-07-21 [facility]:00 non-drinker of Medical Ce nter alcohol (finding) History [facility] 2020-07-04 2020-07-[address] [facility] - Alcohol Frequency 00:00:00 00:00:00 [facility] Smoking Status Start Date Stop Date Source Never smoker [facility] kes - M edical Center Medications Ordered [...] Source Systolic blood 2020-08-05 16:24:00 119 mm[Hg] [facility] pressure [facility] Diastolic blood 2020-08-05 16:24:00 69 mm[Hg] [facility] S t [facility] Heart rate 2020-08-05 16:24:00 82 /min [facility] Body temperature 2020-08-05 16:24:00 36.56 Keyonna [facility] Respiratory rate 2020-08-05 16:24:00 18 /min [facility] Oxygen saturation in 2020-08-05 16:24:00 99 /min [facility] - Arterial blood by Medical Ce nter Pulse oximetry Body weight 2020-08-05 12:19:00 52.5 kg [facility] BMI 2020-08-05 12:19:00 21.88 kg/m2 [facility] Body height 2020-07-04 08:00:00 154.9 cm [facility] Procedures Procedure Date / Time Performing Clinician Source Performed POCT-GLUCOSE METER 2020-08-05 17:11:00 Latasha Michael liborio [facility] POCT-GLUCOSE METER 2020-08-05 13:05:00 [facility] 2020-08-05 12:38:32 Mikael Gomes [facility] POCT-GLUCOSE METER 2020-08-05 07:17:00 [facility] SARS-COV2/RT-PCR ([facility] & 2020-08-05 06:15:00 [facility] COVID19 ([facility]) 2020-08-05 06:15:00 Mk Boss [facility] BASIC METABOLIC PANEL (7) 2020-08-05 03:52:00 Latasha Michael [facility] PHOSPHORUS 2020-08-05 03:52:00 Latasha Michael [facility] MAGNESIUM 2020-08-05 03:52:00 Wilbert Shultz [facility] CBC W/PLT COUNT & AUTO 2020-08-05 03:52:00 Latasha Michael [facility] POCT-GLUCOSE METER 2020-08-04 21:29:00 Latasha Michael [facility] HEPATITIS B PANEL 2020-08-04 18:36:00 Latasha Michael [facility] HEPATITIS B CORE ANTIBODY, 2020-08-04 18:36:00 Mk Boss [facility] POCT-GLUCOSE METER 2020-08-04 16:44:00 FernandaLatasha ye [facility] POCT-GLUCOSE METER 2020-08-04 08:52:00 Fernanda, Latasha Webb [facility] BASIC METABOLIC PANEL (7) 2020-08-04 03:54:00 Fernanda, Latasha Lockhartstarla a [facility] PHOSPHORUS 2020-08-04 03:54:00 Fernanda, Latasha Lockhartstarlaa [facility] MAGNESIUM 2020-08-04 03:54:00 Wilbert Shultz [facility] CBC W/PLT COUNT & AUTO 2020-08-04 03:54:00 Fernanda, Latasha Webb C [facility] (CELLAVISION MANUAL DIFF) 2020-08-04 03:54:00 Fernanda, Latasha Lockhartstarla debbie [facility] POCT-GLUCOSE METER 2020-08-03 20:58:00 [facility] ([facility] & 2020-08-03 18:00:00 Wilbert Shultz [facility] - REF LABS) [facility] POCT-GLUCOSE METER 2020-08-03 17:43:00 Fernanda[facility] POCT-GLUCOSE METER 2020-08-03 08:37:00 Fernanda[facility]PATIENT 2020-08-03 08:17:00 Mikael Gomes [facility] BASIC METABOLIC PANEL (7) 2020-08-03 04:00:00 Fernanda, Latasha Richystarla a [facility] PHOSPHORUS 2020-08-03 04:00:00 Fernanda, Latasha Lockhartstarladebbie [facility] MAGNESIUM 2020-08-03 04:00:00 Wilbert Shultz [facility] CBC W/PLT COUNT & AUTO 2020-08-03 04:00:00 FernandaLatasha yea C [facility] DIFFERENTIAL [facility] POCT-GLUCOSE METER 2020-08-02 22:04:00 Fernanda, Latasha [facility] POCT-GLUCOSE METER 2020-08-02 17:53:00 Fernanda, Latasha Webb [facility] POCT-GLUCOSE METER 2020-08-02 17:25:00 Fernanda, Latasha Webb [facility] POCT-GLUCOSE METER 2020-08-02 12:22:00 Fernanda, Latasha Webb [facility] POCT-GLUCOSE METER 2020-08-02 08:14:00 Fernanda, Latasha Webb [facility] POCT-GLUCOSE METER 2020-08-02 06:50:00 Fernanda[facility] BASIC METABOLIC PANEL (7) 2020-08-02 03:37:00 Fernanda, Latasha munguia [facility] IMMUNOGLOBULIN G (IGG) 2020-08-02 03:37:00 Leonarda Jones [facility] PHOSPHORUS 2020-08-02 03:37:00 Fernanda, Latasha Webb [facility] MAGNESIUM 2020-08-02 03:37:00 Wilbert Shultz [facility] CBC W/PLT COUNT & AUTO 2020-08-02 03:37:00 Mikayla Mireles [facility] KAPPA / LAMBDA LIGHT 2020-08-02 03:36:00 Leonarda Jones [facility] HEMODIALYSIS INPATIENT 2020-08-01 23:56:24 Mikael Gomes [facility] POCT-GLUCOSE METER 2020-08-01 17:11:00 Fernanda, Latasha Lockhartliborio [facility] BASIC METABOLIC PANEL (7) 2020-08-01 15:42:00 Mikael Gomes [facility] PHOSPHORUS 2020-08-01 15:42:00 Mikael Gomes [facility] POCT-GLUCOSE METER 2020-08-01 12:47:00 Fernanda Latasha Richyliborio [facility] POCT-GLUCOSE METER 2020-08-01 07:39:00 Fernanda, Latasha Webb [facility] BASIC METABOLIC PANEL (7) 2020-08-01 03:40:00 Fernanda, Latasha Sloan a [facility] HEPATIC FUNCTION PANEL 2020-08-01 03:40:00 Fernanda, Latasha Lockhartliborio C [facility] PHOSPHORUS 2020-08-01 03:40:00 Fernanda, Latasha Sloana [facility] MAGNESIUM 2020-08-01 03:40:00 JoudahWilbert [facility] CBC W/PLT COUNT & AUTO 2020-08-01 03:40:00 Mikayla Mireles [facility] DIFFERENTIAL [facility] PREPARE LEUKO-REDUCED RBC 2020-07-31 23:54:00 Fernanda, Latasha Sloan a [facility] POCT-GLUCOSE METER 2020-07-31 21:24:00 Fernanda, Latasha Webb [facility] POCT-GLUCOSE METER 2020-07-31 11:20:00 Fernanda, Latasha Webb [facility] POCT-GLUCOSE METER 2020-07-31 07:38:00 Fernanda, Latasha Webb [facility] BASIC METABOLIC PANEL (7) 2020-07-31 07:36:00 Fernanda, Latasha Sloan a [facility] PHOSPHORUS 2020-07-31 07:36:00 Fernanda, Latasha Sloana [facility] MAGNESIUM 2020-07-31 07:36:00 JoudaWilbert murguia [facility] POCT-GLUCOSE METER 2020-07-31 07:19:00 Fernanda, Latasha Webb [facility] CBC W/PLT COUNT & AUTO 2020-07-31 06:19:00 Mikayla Mireles [facility] DIFFERENTIAL [facility] POCT-GLUCOSE METER 2020-07-30 21:36:00 Fernanda, Latasha Sloana [facility] POCT-GLUCOSE METER 2020-07-30 16:58:00 Fernanda [facility] POCT-GLUCOSE METER 2020-07-30 12:09:00 Fernanda [facility] TRANSFUSE LEUKO-REDUCED 2020-07-30 10:22:59 Fernanda Latasha Webb [facility] RED BLOOD CELLS [facility] POCT-GLUCOSE METER 2020-07-30 08:49:00 Fernanda [facility] TYPE AND SCREEN, AUTOMATED 2020-07-30 07:54:00 Fernanda Latashasa Garcia na [facility] HEMODIALYSIS INPATIENT 2020-07-30 07:50:04 Sarbjit Mcmahon [facility] HEPATITIS B SURFACE 2020-07-30 07:44:[address] [facility] [place] [place] BASIC METABOLIC PANEL (7) 2020-07-30 04:48:00 Latasha Michael [facility] PHOSPHORUS 2020-07-30 04:48:00 Fernanda Latasha Richyliborio [facility] MAGNESIUM 2020-07-30 04:48:00 Wilbert Shultz [facility] CBC W/PLT COUNT & AUTO 2020-07-30 04:48:00 Mikayla Mireles [facility] POCT-GLUCOSE METER 2020-07-29 22:07:00 Wilbert Shultz katia [facility] POCT-GLUCOSE METER 2020-07-29 17:01:00 Wilbert Shultz katia [facility] POCT-GLUCOSE METER 2020-07-29 11:57:00 Wilbert Shultz katia [facility] POCT-GLUCOSE METER 2020-07-29 07:58:00 [facility] BASIC METABOLIC PANEL (7) 2020-07-29 04:11:00 FernandaLatasha ye [facility] PHOSPHORUS 2020-07-29 04:11:00 Latasha Michael [facility] MAGNESIUM 2020-07-29 04:11:00 Carrington Wilbert [facility] CBC W/PLT COUNT & AUTO 2020-07-29 04:11:[address] [facility] - DIFFERENTIAL [facility] POCT-GLUCOSE METER 2020-07-28 22:23:00 CarringtonWilbert [facility] POCT-GLUCOSE METER 2020-07-28 18:13:00 Jogin Wilbert katia [facility] POCT-GLUCOSE METER 2020-07-28 13:02:00 ArnavbladeWilbert [facility] BASIC METABOLIC PANEL (7) 2020-07-28 03:54:00 Latasha Michael [facility] PHOSPHORUS 2020-07-28 03:54:00 Latasha Michael [facility] MAGNESIUM 2020-07-28 03:54:00 ArnavbladeWilbert [facility] W/PLT COUNT & AUTO 2020-07-28 03:54:00 Mikayla Mireles [facility] DIFFERENTIAL [facility] POCT-GLUCOSE METER 2020-07-27 22:19:00 Carrington Wilbert [facility] SARS-COV2/RT-PCR ([facility] & 2020-07-27 18:28:[address] [facility] POCT-GLUCOSE METER 2020-07-27 17:23:00 Wilbert Shultz [facility] POCT-GLUCOSE METER 2020-07-27 11:25:00 [facility]bert Shultz [facility] POCT-GLUCOSE METER 2020-07-27 08:20:00 Angus Campoverde [facility] BASIC METABOLIC PANEL (7) 2020-07-27 04:01:00 Latasha Michaelunn a [facility] PHOSPHORUS 2020-07-27 04:01:00 Melva Michaelsa Hystarladebbie [facility] MAGNESIUM 2020-07-27 04:01:00 Wilbert Shultz [facility] CBC W/PLT COUNT & AUTO 2020-07-27 04:01:[address] [facility] - DIFFERENTIAL [facility] PREPARE LEUKO-REDUCED RBC 2020-07-26 23:54:00 Wilbert Shultz [facility] POCT-GLUCOSE METER 2020-07-26 21:35:00 Givecassi [facility] POCT-GLUCOSE METER 2020-07-26 16:49:00 [facility] 2020-07-26 12:00:00 Sarbjit Mcmahon [facility] POCT-GLUCOSE METER 2020-07-26 11:53:00 Nirali [facility] POCT-GLUCOSE METER 2020-07-26 08:07:00 Nirali [facility] BASIC METABOLIC PANEL (7) 2020-07-26 04:44:00 Fernanda Latasha Lockhartstarla a [facility] PHOSPHORUS 2020-07-26 04:44:00 Fernanda Latasha Hyunna [facility] MAGNESIUM 2020-07-26 04:44:00 Wilbert Shultz [facility] CBC W/PLT COUNT & AUTO 2020-07-26 04:44:[address] [facility] - DIFFERENTIAL [facility] POCT-GLUCOSE METER 2020-07-25 21:14:00 Nirali [facility] TRANSFUSE LEUKO-REDUCED 2020-07-25 17:34:[address] [facility] - RED BLOOD CELLS [facility] POCT-GLUCOSE METER 2020-07-25 16:57:00 Nirali [facility] POCT-GLUCOSE METER 2020-07-25 12:06:00 Nirali [facility] ABORH, MANUAL 2020-07-25 09:35:00 Wilbert Shultz [facility] ANTIBODY SCREEN 2020-07-25 09:35:00 Wilbert Shultz [facility] POCT-GLUCOSE METER 2020-07-25 07:58:00 Nirali [facility] BASIC METABOLIC PANEL (7) 2020-07-25 04:45:00 Latasha Michael a [facility] VISCOSITY, SERUM 2020-07-25 04:45:00 EscudiLeonarda castillo [facility] IMMUNOGLOBULIN G (IGG) 2020-07-25 04:45:00 EscLeonarda emanuel [facility] KAPPA / LAMBDA LIGHT 2020-07-25 04:45:00 Leonarda Jones [facility] PHOSPHORUS 2020-07-25 04:45:00 FernandaLatasha ye [facility] MAGNESIUM 2020-07-25 04:45:00 Wilbert Shultz [facility] CBC W/PLT COUNT & AUTO 2020-07-25 04:45:00 Mikayla Mireles [facility] POCT-GLUCOSE METER 2020-07-24 22:51:00 Nirali [facility] POCT-GLUCOSE METER 2020-07-24 17:49:00 Nirali [facility] POCT-GLUCOSE METER 2020-07-24 12:20:00 Nirali [facility] POCT-GLUCOSE METER 2020-07-24 08:31:00 Nirali [facility] BASIC METABOLIC PANEL (7) 2020-07-24 05:33:00 Latasha Michael a [facility] HEPATIC FUNCTION PANEL 2020-07-24 05:33:00 Leonarda Jones [facility] MAGNESIUM 2020-07-24 05:33:00 Mikayla Mireles [facility] PHOSPHORUS 2020-07-24 05:33:00 Fernanda, Latasha Hyunna [facility] CBC W/PLT COUNT & AUTO 2020-07-24 05:33:00 Mikayla Mireles HI [facility] POCT-GLUCOSE METER 2020-07-23 21:25:00 Giveon, [facility] HEMODIALYSIS INPATIENT 2020-07-23 20:06:35 Mikael Gomes CH, I [facility] POCT-GLUCOSE METER 2020-07-23 12:01:00 Giveon, [facility] POCT-GLUCOSE METER 2020-07-23 08:03:00 Giveon, [facility] BASIC METABOLIC PANEL (7) 2020-07-23 04:09:00 Fernanda, Latasha Sloan a [facility] MAGNESIUM 2020-07-23 04:09:00 Mikayla Mireles [facility] PHOSPHORUS 2020-07-23 04:09:00 Fernanda, Latasha Richyunna [facility] CBC W/PLT COUNT & AUTO 2020-07-23 04:09:00 Mikayla Mireles [facility] POCT-GLUCOSE METER 2020-07-22 21:31:00 Giveon, [facility] POCT-GLUCOSE METER 2020-07-22 16:59:00 Giveon, [facility] POCT-GLUCOSE METER 2020-07-22 12:17:00 Giveon, [facility] POCT-GLUCOSE METER 2020-07-22 07:50:00 Giveon, [facility] BASIC METABOLIC PANEL (7) 2020-07-22 04:45:00 Fernanda, Latasha Hyunn a [facility] MAGNESIUM 2020-07-22 04:45:00 Mikayla Mireles [facility] PHOSPHORUS 2020-07-22 04:45:00 Fernanda, Latasha Hyunna [facility] CBC W/PLT COUNT & AUTO 2020-07-22 04:45:00 Mikayla Mireles [facility] HEMODIALYSIS INPATIENT 2020-07-21 23:12:34 Mikael Gomes I [facility] POCT-GLUCOSE METER 2020-07-21 22:52:00 Givecassi [facility] POCT-GLUCOSE METER 2020-07-21 22:33:00 Nieshacassi [facility] POCT-GLUCOSE METER 2020-07-21 17:49:00 Giveon [facility] POCT-GLUCOSE METER 2020-07-21 16:57:00 Nirali [facility] REPORT OF PROCEDURE - 2020-07-21 15:42:48 AmaraSaloni mensah [facility] - ENDOSCOPY [facility] UPPER ENDOSCOPY,PEG 2020-07-21 14:50:00 Saloni Santos CH I [facility] POCT-GLUCOSE METER 2020-07-21 13:04:00 Nirali [facility] POCT-GLUCOSE METER 2020-07-21 12:26:00 Nirali [facility] POCT-GLUCOSE METER 2020-07-21 08:19:00 Nirali [facility] BASIC METABOLIC PANEL (7) 2020-07-21 04:37:00 FernandaLatasha a [facility] MAGNESIUM 2020-07-21 04:37:00 Mikayla Mireles [facility] PHOSPHORUS 2020-07-21 04:37:00 FernandaJeffrey yeyssa Hystarlaa [facility] PT/APTT 2020-07-21 04:37:00 Fernanda, Latasha Hyunna [facility] CBC W/PLT COUNT & AUTO 2020-07-21 04:37:00 Mikayla Mireles [facility] POCT-GLUCOSE METER 2020-07-20 16:38:00 Fernanda, Latasha Hyunna [facility] POCT-GLUCOSE METER 2020-07-20 12:06:00 Fernanda, Latasha Hyunna [facility] SARS-COV2/RT-PCR ([facility] & 2020-07-20 08:49:00 Gildardo Santos [facility] - REF LABS) [facility] POCT-GLUCOSE METER 2020-07-20 07:40:00 Fernanda, Latasha Webb [facility] CBC W/PLT COUNT & AUTO 2020-07-20 03:35:00 Mikayla Mireles [facility] BASIC METABOLIC PANEL (7) 2020-07-20 03:34:00 Fernanda, Latasha munguia [facility] IMMUNOGLOBULIN G (IGG) 2020-07-20 03:34:00 NatalioFernando peña [facility] KAPPA / LAMBDA LIGHT 2020-07-20 03:34:00 Fernando Lance [facility] MAGNESIUM 2020-07-20 03:34:00 Mikayla Mireles [facility] PHOSPHORUS 2020-07-20 03:34:00 Fernanda[facility] PREPARE LEUKO-REDUCED RBC 2020-07-19 23:54:00 Fernanda, Latasha munguia [facility] POCT-GLUCOSE METER 2020-07-19 18:14:00 Fernanda, Latasha [facility] POCT-GLUCOSE METER 2020-07-19 17:26:00 Fernanda, Latasha [facility] POCT-GLUCOSE METER 2020-07-19 16:52:00 Fernanda Latasha [facility] HEMODIALYSIS INPATIENT 2020-07-19 15:27:29 Mikael Gomes CH [facility] HEMODIALYSIS INPATIENT 2020-07-19 12:47:55 Mikael Gomes CH [facility] POCT-GLUCOSE METER 2020-07-19 11:24:00 Fernanda, [facility] POCT-GLUCOSE METER 2020-07-19 07:51:00 Fernanda[facility] BASIC METABOLIC PANEL (7) 2020-07-19 03:39:00 Fernanda, Latasha munguia [facility] CBC (HEMOGRAM ONLY) 2020-07-19 03:39:00 Fernanda, Latasha Webb [facility] MAGNESIUM 2020-07-19 03:39:00 Chi Mikayla Aguilar [facility] PHOSPHORUS 2020-07-19 03:39:00 Fernanda, Latasha Webb [facility] CBC W/PLT COUNT & AUTO 2020-07-19 03:39:00 Mikayla Mireles C [facility] POCT-GLUCOSE METER 2020-07-18 23:34:00 Fernanda, Latasha Hyliborio [facility] HEMODIALYSIS INPATIENT 2020-07-18 23:00:00 Mikael Gomes [facility] TRANSFUSE LEUKO-REDUCED 2020-07-18 21:32:41 Fernanda, Latasha liborio [facility] RED BLOOD CELLS [facility] POCT-GLUCOSE METER 2020-07-18 16:40:00 Fernanda, [facility] ECG 12-LEAD 2020-07-18 12:41:10 Unknown, Hl7 Doctor [facility] POCT-GLUCOSE METER 2020-07-18 12:09:00 Fernanda, [facility] ABORH, MANUAL 2020-07-18 12:07:00 Fernanda, Latasha liborio [facility] ANTIBODY SCREEN 2020-07-18 12:07:00 Fernanda, [facility] IR TUNNELED DIALYSIS 2020-07-18 11:40:00 Fern[facility], [facility] PT/APTT 2020-07-18 08:44:00 Fernanda, [facility] POCT-GLUCOSE METER 2020-07-18 07:16:00 Fernanda, [facility] BASIC METABOLIC PANEL (7) 2020-07-18 05:59:00 FernandaLatasha ye [facility] MAGNESIUM 2020-07-18 05:59:00 Mikayla Mireles [facility] PHOSPHORUS 2020-07-18 05:59:00 Fernanda, Latasha Webb [facility] CBC W/PLT COUNT & AUTO 2020-07-18 05:59:00 MirelesMikayla Jess [facility] POCT-GLUCOSE METER 2020-07-17 21:11:00 Fernanda, Latasha Webb [facility] POCT-GLUCOSE METER 2020-07-17 17:04:00 Fernanda, Latasha Webb [facility] BASIC METABOLIC PANEL (7) 2020-07-17 17:01:00 Fernanda, Latasha Sloan a [facility] POCT-GLUCOSE METER 2020-07-17 11:54:00 Fernanda, Latasha liborio [facility] POCT-GLUCOSE METER 2020-07-17 07:24:00 Fernanda, Latasha Webb [facility] MAGNESIUM 2020-07-17 05:17:00 ChiMikayla [facility] COMPREHENSIVE METABOLIC 2020-07-17 05:17:00 ChiMikayla [facility] PHOSPHORUS 2020-07-17 05:17:00 Fernanda, Latasha Webb [facility] CBC W/PLT COUNT & AUTO 2020-07-17 05:17:00 Chi Mikayla Jess [facility] POCT-GLUCOSE METER 2020-07-16 23:38:00 Fernanda, Latasha Webb [facility] POCT-GLUCOSE METER 2020-07-16 16:34:00 Fernanda, Latasha Sloana [facility] ECG 12-LEAD 2020-07-16 16:17:03 Unknown, Hl7 Doctor [facility] POCT-GLUCOSE METER 2020-07-16 11:56:00 Fernanda, [facility] POCT-GLUCOSE METER 2020-07-16 07:43:00 FernandaLatasha ye liborio [facility] MAGNESIUM 2020-07-16 05:33:00 Mikayla Mireles [facility] COMPREHENSIVE METABOLIC 2020-07-16 05:33:00 Mikayla Mireles [facility] PHOSPHORUS 2020-07-16 05:33:00 Fernanda, Latasha [facility] CBC W/PLT COUNT & AUTO 2020-07-16 05:33:00 Chi Mikayla Jess [facility] POCT-GLUCOSE METER 2020-07-15 23:58:00 FernandaMelva [facility] POCT-GLUCOSE METER 2020-07-15 17:36:00 [facility]UCOSE METER 2020-07-15 11:09:00 [facility] POCT-GLUCOSE METER 2020-07-15 07:25:00 [facility] MAGNESIUM 2020-07-15 06:56:00 Mikayla Mireles [facility] COMPREHENSIVE METABOLIC 2020-07-15 06:56:00 Chi Mikayla [facility] PHOSPHORUS 2020-07-15 06:56:00 Fernanda, [facility]T [facility] & AUTO 2020-07-15 06:56:00 Mikayla Mireles [facility] POCT-GLUCOSE METER 2020-07-15 00:52:00 [facility] TRANSFUSION SERVICE REPORT 2020-07-14 18:03:36 Felicia [facility] - - SCAN [facility] POCT-GLUCOSE METER 2020-07-14 17:46:00 [facility]IENT 2020-07-14 12:40:00 Patience Combs CH I [facility] MAGNESIUM 2020-07-14 08:27:00 Chi Mikayla [facility] COMPREHENSIVE METABOLIC 2020-07-14 08:27:00 Chi Mikayla [facility] PHOSPHORUS 2020-07-14 08:27:00 Fernanda [facility] CBC W/PLT COUNT & AUTO 2020-07-14 08:27:00 Mikayla Mireles [facility] PREPARE LEUKO-REDUCED RBC 2020-07-13 23:54:00 Jovani [facility] POCT-GLUCOSE METER 2020-07-13 21:48:00 [facility] TRANSFUSION SERVICE REPORT 2020-07-13 18:02:57 Felicia [facility] POCT-GLUCOSE METER 2020-07-13 17:08:00 [facility] POCT-GLUCOSE METER 2020-07-13 10:58:00 Massmary kate, [facility] MAGNESIUM 2020-07-13 04:52:00 Mikayla Mireles [facility] COMPREHENSIVE METABOLIC 2020-07-13 04:52:00 Mikayla Mireles [facility] PHOSPHORUS 2020-07-13 04:52:00 Fernanda [facility] CBC W/PLT COUNT & AUTO 2020-07-13 04:52:00 Mikayla Mireles [facility] POCT-GLUCOSE METER 2020-07-12 22:55:00 Massmary kate, [facility] HEMODIALYSIS INPATIENT 2020-07-12 18:40:14 Patience Combs [facility] POCT-GLUCOSE METER 2020-07-12 17:57:00 Massumi, [facility] POCT-GLUCOSE METER 2020-07-12 17:39:00 [facility], [facility] TRANSFUSE LEUKO-REDUCED 2020-07-12 16:49:36 [facility], [facility] - RED BLOOD CELLS [facility] POCT-GLUCOSE METER 2020-07-12 07:29:00 [facility], [facility] TYPE AND SCREEN 2020-07-12 06:28:00 [facility], [facility] MAGNESIUM 2020-07-12 04:13:00 Mikayla Mireles [facility] COMPREHENSIVE METABOLIC 2020-07-12 04:13:00 Mikayla Mireles [facility] PHOSPHORUS 2020-07-12 04:13:00 [facility] CBC W/PLT COUNT & AUTO 2020-07-12 04:13:00 Mikayla Mireles [facility] POCT-GLUCOSE METER 2020-07-11 20:31:00 [facility], [facility] POCT-GLUCOSE METER 2020-07-11 16:29:00 [facility], [facility] POCT-GLUCOSE METER 2020-07-11 11:35:00 [facility], [facility] MAGNESIUM 2020-07-11 05:47:00 Mikayla Mireles [facility] COMPREHENSIVE METABOLIC 2020-07-11 05:47:00 Mikayla Mireles [facility] PHOSPHORUS 2020-07-11 05:47:00 Fernanda, [facility] PROTEIN ELECTROPHORESIS, 2020-07-11 05:46:00 EscLeonarda emanuel [facility] KAPPA / LAMBDA LIGHT 2020-07-11 05:46:[address] [facility] IMMUNOFIXATION 2020-07-11 05:46:00 Jessy Camacho [facility] - ELECTROPHORESIS (VERÓNICA) [facility] nter CBC W/PLT COUNT & AUTO 2020-07-11 05:46:00 Mikayla iMreles [facility] POCT-GLUCOSE METER 2020-07-11 05:36:00 [facility] POCT-GLUCOSE METER 2020-07-10 23:17:00 [facility], [facility] POCT-GLUCOSE METER 2020-07-10 16:43:00 [facility], [facility] POCT-GLUCOSE METER 2020-07-10 11:51:00 [facility], [facility] MAGNESIUM 2020-07-10 05:20:00 Mikayla Mireles [facility] COMPREHENSIVE METABOLIC 2020-07-10 05:20:00 Mikayla Mireles [facility] PHOSPHORUS 2020-07-10 05:20:00 FernandaLatasha yestarlaa [facility] CBC W/PLT COUNT & AUTO 2020-07-10 05:20:00 Mikayla Mireles [facility] POCT-GLUCOSE METER 2020-07-10 05:13:00 [facility], [facility] POCT-GLUCOSE METER 2020-07-09 23:15:00 [facility] POCT-GLUCOSE METER 2020-07-09 17:06:00 [facility] HEMODIALYSIS INPATIENT 2020-07-09 10:24:46 Lucien El I [facility] POCT-GLUCOSE METER 2020-07-09 05:53:00 Ari Stephenson [facility] MAGNESIUM 2020-07-09 04:34:00 Mikayla Mireles [facility] COMPREHENSIVE METABOLIC 2020-07-09 04:34:00 Chi Mikayla Aguilar [facility] PHOSPHORUS 2020-07-09 04:34:00 Fernanda [facility] CBC W/PLT COUNT & AUTO 2020-07-09 04:34:00 Mikayla Mireles [facility] DIFFERENTIAL [facility] POCT-GLUCOSE METER 2020-07-08 21:55:00 Le [facility] XR ABDOMEN / KUB 1 VIEW 2020-07-08 17:25:00 Ashley Hahn [facility] POCT-GLUCOSE METER 2020-07-08 17:14:00 Le [facility] POCT-GLUCOSE METER 2020-07-08 11:36:00 Le [facility] MR BRAIN WITHOUT IV 2020-07-08 09:54:00 Chato Uriarte [facility] POCT-GLUCOSE METER 2020-07-08 05:58:00 Le [facility] CBC W/PLT COUNT & AUTO 2020-07-08 04:34:00 Mikayla Mireles [facility] MAGNESIUM 2020-07-08 04:33:00 Mikayla Mireles [facility] COMPREHENSIVE METABOLIC 2020-07-08 04:33:00 Mikayla Mireles [facility] PHOSPHORUS 2020-07-08 04:33:00 [facility] POCT-GLUCOSE METER 2020-07-08 00:18:00 Le [facility] POCT-GLUCOSE METER 2020-07-07 18:21:00 Le [facility] TRANSFUSION SERVICE REPORT 2020-07-07 18:02:59 Peter Duarte [facility] - - SCAN [facility] POCT-GLUCOSE METER 2020-07-07 11:45:00 Le [facility] AMMONIA 2020-07-07 11:18:00 Leonarda Jones [facility] POCT-GLUCOSE METER 2020-07-07 06:39:00 Ari Stephenson [facility] MAGNESIUM 2020-07-07 04:49:00 Mikayla Mireles [facility] COMPREHENSIVE METABOLIC 2020-07-07 04:49:00 Mikayla Mireles [facility] PHOSPHORUS 2020-07-07 04:49:00 Latasha Michael [facility] CBC W/PLT COUNT & AUTO 2020-07-07 04:49:00 Mikayla Mireles [facility] POCT-GLUCOSE METER 2020-07-07 00:34:00 Le [facility] PREPARE LEUKO-REDUCED RBC 2020-07-06 23:54:00 Leonarda Jones [facility] TRANSFUSION SERVICE REPORT 2020-07-06 18:02:59 Peter Duarte [facility] - - SCAN [facility] EEG 2-12 HR CONTINUOUS 2020-07-06 17:48:00 Le [facility] - MONITORING WITH VIDEO Medical Ce nter XR ABDOMEN / KUB 1 VIEW 2020-07-06 16:33:00 Le [facility] POCT-GLUCOSE METER 2020-07-06 12:09:00 Le [facility] EEG 12-26 HR CONTINUOUS 2020-07-06 07:00:00 eL [facility] - MONITORING WITH VIDEO Medical Ce nter POCT-GLUCOSE METER 2020-07-06 05:45:00 Le [facility] PTH, INTACT 2020-07-06 05:40:00 Radha Ta [facility] VITAMIN D, 25-HYDROXY 2020-07-06 05:40:00 Radha Ta [facility] MAGNESIUM 2020-07-06 05:40:00 Mikayla Mireles [facility] COMPREHENSIVE METABOLIC 2020-07-06 05:40:00 Mikayla Mireles [facility] PHOSPHORUS 2020-07-06 05:40:00 FernandaLatasha ye [facility] PREALBUMIN 2020-07-06 05:40:00 Le [facility] TRIGLYCERIDES 2020-07-06 05:40:00 Le [facility] CBC W/PLT COUNT & AUTO 2020-07-06 05:40:00 Mikayla Mireles [facility] DIFFERENTIAL [facility] POCT-GLUCOSE METER 2020-07-05 22:00:00 Le [facility] TRANSFUSE LEUKO-REDUCED 2020-07-05 13:45:28 Leonarda Jones [facility] RED BLOOD CELLS [facility] HEMODIALYSIS INPATIENT 2020-07-05 12:43:30 France Goins [facility] REPORT OF PROCEDURE - 2020-07-05 10:45:16 Provider, Peter [facility] ENDOSCOPY SCAN Scanning [facility] POCT-GLUCOSE METER 2020-07-05 10:35:00 Le [facility] POCT-GLUCOSE METER 2020-07-05 06:12:00 Le [facility] EEG 12-26 HR CONTINUOUS 2020-07-05 06:09:00 Chato Uriarte [facility] - MONITORING WITH VIDEO [facility] VISCOSITY, SERUM 2020-07-05 04:59:00 Leonarda Jones [facility] PROTEIN ELECTROPHORESIS, 2020-07-05 04:59:00 Leonarda Jones [facility] MAGNESIUM 2020-07-05 04:59:00 Mikayla Mireles [facility] COMPREHENSIVE METABOLIC 2020-07-05 04:59:00 Mikayla Mireles [facility] PHOSPHORUS 2020-07-05 04:59:00 Latasha Michael liborio [facility] HEPATITIS B SURFACE 2020-07-05 04:59:00 Laura Soemrs CH, I [facility] IMMUNOFIXATION 2020-07-05 04:59:00 Doug Jessy [facility] - ELECTROPHORESIS (VERÓNICA) [facility] W/PLT COUNT & AUTO 2020-07-05 04:59:00 Mikayla Mireles [facility] POCT-GLUCOSE METER 2020-07-05 00:37:00 Ari Stephenson [facility] TRANSFUSION SERVICE REPORT 2020-07-04 18:01:47 Provider, Peter [facility] - - SCAN Scanning [facility] VANCOMYCIN LEVEL, RANDOM 2020-07-04 17:38:00 Al Seay [facility] TROPONIN I 2020-07-04 05:07:00 Ronak Sage [facility] MAGNESIUM 2020-07-04 05:07:00 Mikayla Mireles [facility] COMPREHENSIVE METABOLIC 2020-07-04 05:07:00 Mikayla Mireles [facility] PANEL [facility] PHOSPHORUS 2020-07-04 05:07:00 Latasha Michael [facility] CBC W/PLT COUNT & AUTO 2020-07-04 05:07:00 Mikayla Mireles [facility] VENOUS DOPPLER LEGS 2020-07-04 01:13:00 Ari Stephenson [facility] URINE CULTURE 2020-07-04 01:01:00 Lon Lynn [facility] URINALYSIS W/ REFLEX URINE 2020-07-04 01:01:00 Angus [facility] ECG 12-LEAD 2020-07-03 23:11:19 Unknown, Hl7 [facility] ECG 12-LEAD 2020-07-03 23:11:00 Unknown, Hl7 [facility] RESPIRATORY PANEL [facility] 2020-07-03 22:43:[address] [facility] RAPID INFLUENZA A&B SCREEN 2020-07-03 22:43:00 Mikayla Mireles [facility] TROPONIN I 2020-07-03 22:39:00 Jordin Jebjeanette [facility] TSH 2020-07-03 22:39:00 MirelesMikayla [facility] T4 2020-07-03 22:39:00 Mikayla Mireles [facility] MAGNESIUM 2020-07-03 22:39:00 Mikayla Mireles [facility] COMPREHENSIVE METABOLIC 2020-07-03 22:39:00 Mikayla Mireles [facility] C-REACTIVE PROTEIN 2020-07-03 22:39:00 MirelesMikayla [facility] IRON, TIBC, % SAT. 2020-07-03 22:39:00 Mikayla Mireles [facility] (WITHOUT FERRITIN) [facility] 2020-07-03 22:39:00 Chi Mikayla Aguilar [facility] FIBRINOGEN 2020-07-03 22:39:00 ChiMikayla [facility] D-DIMER 2020-07-03 22:39:00 Chi Mikayla [facility] CBC W/PLT COUNT & AUTO 2020-07-03 22:39:00 Chi Mikayla Hyderashmi Mercado [facility] ABORH, MANUAL 2020-07-03 20:44:00 So Salcedo [facility] URINALYSIS W/ REFLEX URINE 2020-07-03 20:29:00 Jordin [facility] CULTURE [facility] TROPONIN I 2020-07-03 20:02:00 Jordin [facility] B-TYPE NATRIURETIC FACTOR 2020-07-03 20:02:00 Ronak Sage [facility] (BNP) [facility] [place] COMPREHENSIVE METABOLIC 2020-07-03 20:02:00 Jordin [facility] URIC ACID 2020-07-03 20:02:00 Chi Mikayla [facility] TYPE AND SCREEN, AUTOMATED 2020-07-03 20:02:00 [facility] ANTIBODY SCREEN 2020-07-03 20:02:00 [facility] ECG 12-LEAD 2020-07-03 19:47:15 [facility] BLOOD CULTURE 2020-07-03 18:31:00 [facility] SARS-COV2/RT-PCR ([facility] & 2020-07-03 18:31:00 [facility] - REF LABS) [facility] LACTIC ACID, VENOUS 2020-07-03 18:31:00 [facility] PT/APTT 2020-07-03 18:31:00 [facility] BLOOD GAS, VENOUS 2020-07-03 18:31:00 [facility] CBC W/PLT COUNT & AUTO 2020-07-03 18:31:[address] [facility] CT BRAIN WITHOUT IV 2020-07-03 18:09:00 [facility] XR CHEST 1 VIEW 2020-07-03 17:35:00 [facility] REPORT OF PROCEDURE - 2020-07-03 00:00:00 Provider, Default [facility] - ENDOSCOPY SCAN Scanning [facility] SARS-COV2/RT-PCR ([facility] & 2020-05-11 16:14:00 [facility] REF LABS) [facility] Plan of Care Planned Activity Planned Date Details Comments Source Future Scheduled 2020-06-07 INFLUENZA VACCINE (#1) [facility] 00:00:00 [code = INFLUENZA Medical Ce nter VACCINE (#1)] Future Scheduled 2019-10-07 Medicare IPPE (WELCOME [facility] - Test 00:00:00 TO MEDICARE) [code = Medical Center Medicare IPPE (WELCOME TO MEDICARE)] Future Scheduled 2010 PNEUMOCOCCAL 65+ [facility]00 (1 of 1 - Medical Center [id number] PCV13) [code = PNEUMOCOCCAL 65+ YRS (1 of 1 - [id number] PCV13)] Future Scheduled [address] [facility] - Test 00:00:00 [facility] [place] [facility] breast (procedure) [code = 549481191] Future Scheduled [address] [facility] - Test 00:00:00 malignant ne[facility] [place] [facility] colon (procedure) [code = 739830346] Results Test Description Test Time Test Comments Results Result Comments Source COVID19 ([facility]) 2020-08-06 20:59:00 Test Item Value Reference Range Interpretation Comme nts COVID19 ([facility]) (test Negative Negative The Aptima SARS-CoV-2 Assay code = 2896693) combines the technologies of TMA (Facing End Trimmer Mediated Amplification) and DKA (Dual Kinetic Assay). It is a qualitative test used for the de tection of nucleic acids from SARS -CoV-2 extracted from nasopharyngeal swabs, throat swabs, nasal and nasal washes. Negative test results ma y occur in spite of active virus in fection. This test was developed b y [place] and its analytical performance characteristics have been validated by the [facility] purs uant to CLIA regulations. Th is test has EUA authorization f rom the Food and Drug Administration (Hologic Aptima SARS-CoV-2 Assa y on the [place]). This test was p erformed at:[facility] Reference LaboratoryDrSkyla J tuan [address], [place] [address]QTAH # [id number] [facility]-Glucose [id number] 17:24:00 Test Item Value Reference Range Interpretation Comments POC-Glucose Meter (test 94 mg/dL 70-110 : TE STED AT [facility] code = 1534) [address] [facility], 770 30: Electrical Discharge Machine Operator/Techni kathryn ID = [id number] for BRINA GONZALEZ Lab Interpretation (test Normal code = 53474-1) [facility]-GLUCOSE [id number] 17:24:00 Test Item Value Reference Range Interpretation Comments POC-GLUCOSE METER 94 mg/dL 70-110 : TESTED A T [facility] 6720 (BEAKER) (test code = CARLO Lin [facility], 1538) [address]: Electrical Discharge Machine Operator/Techni kathryn ID = [id number] for BRINA GONZALEZ SARS-CoV2/RT-PCR ([facility] & Ref Labs)2020-08-05 13:24:00 Test Item Value Reference Range Interpretation Comments SARS-COV2/RT-PCR (test See external report Not Detected, code = 22089-0) for linked test Negative, See external report for linked test SARS-COV-2 PERFORMING [facility] LAB (test code = 28501-4) [facility] & REF LABS)2020-08-05 13:24:00 Test Item Value Reference Range Interpretation Comments SARS-COV2/RT-PCR (test See external report Not Detected, code = 7960996) for linked test Negative, See external report for linked test SARS-COV-2 PERFORMING [facility] LAB (test code = 3145731) POCT-GLUCOSE [id number] 13:18:00 Test Item Value Reference Range Interpretation Comments POC-GLUCOSE METER 84 mg/dL 70-110 : [facility] (DOM) (test code = CARLO Lin [facility], 1538) [address]: Electrical Discharge Machine Operator/Techni kathryn ID = [id number] for BRINA GONZALEZ HEMODIALYSIS [id number] 12:38:32Venancio Dominique RN 08/05/2020 12:39 PMHD procedure [...] Lab Results Component Value Date HEPBSAG Nonreactive 08/04/2020[facility] / lambda light chains, serum 2020-08-05 11:31:00 Test Item Value Reference Interpretation Comments Range [place] 3868.1 mg/L 3.3-19.4 H SAMPLE SLIGHTLY HEMOLYZED. Chain,Free (test code = 99568-7) Lambda Lt 3 mg/L 5.7-26.3 L SAMPLE SLIGHTLY HEMOLYZED. Chain,Free (test code = 37150-0) [place]/Lambda,Free >1000.00 0.26-1.65 H SAMPLE SLI GHTLY HEMOLYZED. [...] = Performing Lab HERBIE) EZ [facility] [address] [place] [address] Sunni Zuñiga MD, PhD, BHARAT Lab Interpretation Abnormal (test code = 51849-3) [facility] Hospital[facility]atitis B core antibody, [id number] 09:10:00 Test Item Value Reference Range Interpretation Comments Hep B C IgM (test code = Nonreactive Nonreactive 80873-9) HERBIE (test code = HERBIE) Electrical Discharge Machine Operator ID - SHERRY Trotter Lab Interpretation (test Normal code = 08145-7) [facility] HospitalHEPATITIS B CORE ANTIBODY, [id number] 09:10:00 Test Item Value Reference Range Interpretation Comments HEPATITIS B CORE IGM ANTIBODY Nonreactive Nonreactive (BEAKER) (test code = 645) Electrical Discharge Machine Operator JEANETTE POWELL LPOCT-GLUCOSE [id number] 07:28:00 Test Item Value Reference Range Interpretation Comments POC-GLUCOSE METER 121 mg/dL 70-110 H : TESTED A T [facility] 6720 (BEAKER) (test code = CARLO Lin [place], 1538) [address]: Electrical Discharge Machine Operator/Techni kathryn ID = [id number] for DI BRINA VILLAREAL SARS-COV2/RT-PCR ([facility] & REF LABS)2020-08-05 06:10:00 Test Item Value Reference Range Interpretation Comments SARS-COV2/RT-PCR See external Not Detected, (test code = report for Negative, See 2629727) linked test external report for linked test SARS-COV-2 Performing lab: PERFORMING LAB [facility] (test code = [facility], 2805 5145711) Yandel peña [place], [place] [address]; Tel Basic Metabolic [id number] 05:32:00 Test Item Value Reference Range Interpretation [...] (test code = 7.9 mg/dL 8.4-10.2 L 74059-4) EGFR (test code = 11 mL/min/1.73 [place] [address]-5) NOT ACCURATE CREATININE CLEARANCE IN PREDICTING GLOMERULAR FILTRATION RATE . ESTIMATED GFR I S NOT APPLICABLE FOR DIALYSIS PATIENTS. HERBIE (test code = HERBIE) Electrical Discharge Machine Operator ID - EDASI Lab Interpretation Abnormal (test code = 51994-3) [facility] HospitalBASI METABOLIC [id number] 05:32:00 Test Item Value Reference Range Interpretation [...] S NOT APPLICABLE FOR DIALYSIS PATIEN TS. Electrical Discharge Machine Operator ID - [id number] 05:28:00 Test Item Value Reference Range Interpretation Comments Magnesium (test code = 2.1 mg/dL 1.6-2.6 14141-2) HERBIE (test code = HERBIE) Electrical Discharge Machine Operator ID - EDASI Lab Interpretation (test Normal code = 57773-5) [facility] HospitalPhosphorus2020-10-30 05:28:00 Test Item Value Reference Range Interpretation Comments Phosphorus (test code = 2.5 mg/dL 2.3-4.7 2777-1) HERBIE (test code = HERBIE) Electrical Discharge Machine Operator ID - EDASI Lab Interpretation (test Normal code = 83025-9) [facility] HospitalMAGNESIUM2020-10-30 05:28:00 Test Item Value Reference Range Interpretation Comments MAGNESIUM (BEAKER) (test code = 2.1 mg/dL 1.6-2.6 627) Electrical Discharge Machine Operator ID - [id number] 05:28:00 Test Item Value Reference Range Interpretation Comments PHOSPHORUS (BEAKER) (test code = 2.5 mg/dL 2.3-4.7 604) Electrical Discharge Machine Operator ID - EDASICBC with platelet count + automated [id number] 04:55:00 Test Item Value Reference Range Interpretation [...] 450 K/CU MM MPV (test code = 98796-8) 9.6 fL 9.4-12.3 nRBC (test code = [...] 2801) Lab Interpretation (test code = Abnormal 50353-1) [facility] W/PLT COUNT & AUTO [id number] 04:55:00 Test Item Value Reference Range Interpretation [...] PERCENT (BEAKER) (test code = 2801) POCT-GLUCOSE [id number] 21:41:00 Test Item Value Reference Range Interpretation Comments POC-GLUCOSE METER 123 mg/dL 70-110 H : Notified RN/MD: TESTED (BEAKER) (test code AT [facility] [address] = 1538) [facility], [facility] 30: Electrical Discharge Machine Operator/Techni kathryn ID = [id number] for ASH BRANDON Hepatitis B [id number] 19:32:00 Test Item Value Reference Range Interpretation Comments Hep B Core Total Ab (test Nonreactive Nonreactive code = 61662-2) Hep B S Ab (test code = <8.0 <8.0 mIU/mL 37196-4) HBsAg Screen (test code = Nonreactive Nonreactive 5195-3) HERBIE (test code = HERBIE) Electrical Discharge Machine Operator ID - DB Lab Interpretation (test Normal code = 65333-2) [facility]IS B [id number] 19:32:00 Test Item Value Reference Range Interpretation Comments HEPATITIS B CORE TOTAL ANTIBODY Nonreactive Nonreactive (BEAKER) (test code = 497) HEPATITIS B SURFACE ANTIBODY < mIU/mL <8.0 (BEAKER) (test code = 647) HEPATITIS B SURFACE ANTIGEN (2) Nonreactive Nonreactive (BEAKER) (test code = 2585) Electrical Discharge Machine Operator ID - DBPOCT-GLUCOSE [id number] 16:56:00 Test Item Value Reference Range Interpretation Comments POC-GLUCOSE METER 89 mg/dL 70-110 : TESTED A T [facility] 6720 (BEAKER) (test code = [facility], 1538) [address]: Electrical Discharge Machine Operator/Techni kathryn ID = [id number] for Allen De Jesus POCT-GLUCOSE [id number] 09:04:00 Test Item Value Reference Range Interpretation Comments POC-GLUCOSE METER 105 mg/dL 70-110 : TESTED A T [facility] 6720 (BEAKER) (test code = [facility] Delia [facility], 1538) [address]: Electrical Discharge Machine Operator/Techni kathryn ID = [id number] for Ba sunni [place] Manual [id number] 06:59:00 Test Item Value Reference Range Interpretation [...] = 3438) HERBIE (test code = HERBIE) Electrical Discharge Machine Operator ID - Jacque Burgess comments: Slide comments: Lab Interpretation (test Abnormal code = 31725-3) [facility] W/PLT COUNT & AUTO [id number] 06:59:00 Test Item Value Reference Range Interpretation [...] CONCENTRATION Adequate (CELLAVISION)(BEAKER) (test code = 3438) Electrical Discharge Machine Operator ID - Jacque Jenifer comments: Slide comments:BASIC [...] S NOT APPLICABLE FOR DIALYSIS PATIEN TS. Electrical Discharge Machine Operator ID - PALAK [id number] 05:01:00 Test Item Value Reference Range Interpretation Comments MAGNESIUM (BEAKER) (test code = 2.0 mg/dL 1.6-2.6 627) Electrical Discharge Machine Operator ID - PALAK [id number] 05:01:00 Test Item Value Reference Range Interpretation Comments PHOSPHORUS (BEAKER) (test code = 2.0 mg/dL 2.3-4.7 L 604) Electrical Discharge Machine Operator ID - PALAK MPOCT-GLUCOSE [id number] 21:10:00 Test Item Value Reference Range Interpretation Comments POC-GLUCOSE METER 144 mg/dL 70-110 H : Notified RN/MD: TESTED (BEAKER) (test code AT [facility] 67[address] [facility] = 1538) [facility], 770 30: Electrical Discharge Machine Operator/Techni kathryn ID = [id number] for ASH BRANDON POCT-GLUCOSE [id number] 17:56:00 Test Item Value Reference Range Interpretation Comments POC-GLUCOSE METER 99 mg/dL 70-110 : TESTED A T [facility] 6720 (BEAKER) (test code = CARLO Lin [facility], 1538) [address]: Electrical Discharge Machine Operator/Techni kathryn ID = [id number] for JAEL CARIAS POCT-GLUCOSE [id number] 08:48:00 Test Item Value Reference Range Interpretation Comments POC-GLUCOSE METER 84 mg/dL 70-110 : TESTED A T [facility] 6720 (BEAKER) (test code = SADEDE Delia [facility], 1538) 65048: Electrical Discharge Machine Operator/Techni kathryn ID = [id number] for HEMAL FORD [place] BASIC METABOLIC [id number] 04:38:00 Test Item Value Reference Range Interpretation [...] S NOT APPLICABLE FOR DIALYSIS PATIEN TS. Electrical Discharge Machine Operator ID - [id number] 04:34:00 Test Item Value Reference Range Interpretation Comments MAGNESIUM (BEAKER) (test code = 2.0 mg/dL 1.6-2.6 627) Electrical Discharge Machine Operator ID - [id number] 04:34:00 Test Item Value Reference Range Interpretation Comments PHOSPHORUS (BEAKER) (test code = 2.9 mg/dL 2.3-4.7 604) Electrical Discharge Machine Operator ID - EDASICBC W/PLT COUNT & AUTO [id number] 04:07:00 Test Item Value Reference Range Interpretation [...] PERCENT (BEAKER) (test code = 2801) POCT-GLUCOSE [id number] 22:16:00 Test Item Value Reference Range Interpretation Comments POC-GLUCOSE METER 107 mg/dL 70-110 : TESTED A T [facility] 6720 (BEAKER) (test code = [facility], 153) 59031: Electrical Discharge Machine Operator/Techni kathryn ID = [id number] for RANJITH FAIRCHILDELL POCT-GLUCOSE [id number] 18:11:00 Test Item Value Reference Range Interpretation Comments POC-GLUCOSE METER 99 mg/dL 70-110 : TESTED A T [facility] 6720 (BEAKER) (test code = [facility], 153) 95154: Electrical Discharge Machine Operator/Techni kathryn ID = [id number] for GERALD BURNHAMIA POCT-GLUCOSE [id number] 17:37:00 Test Item Value Reference Range Interpretation Comments POC-GLUCOSE METER 96 mg/dL 70-110 : TESTED A T [facility] 6720 (BEAKER) (test code = [facility], 153) 99699: Electrical Discharge Machine Operator/Techni kathryn ID = [id number] for DEMAR GAN POCT-GLUCOSE [id number] 12:34:00 Test Item Value Reference Range Interpretation Comments POC-GLUCOSE METER 105 mg/dL 70-110 : TESTED A T [facility] 6720 (BEAKER) (test code = [facility], 1538) 93110: Electrical Discharge Machine Operator/Techni kathryn ID = [id number] for DEMAR RAMSEY POCT-GLUCOSE [id number] 08:26:00 Test Item Value Reference Range Interpretation Comments POC-GLUCOSE METER 126 mg/dL 70-110 H : TESTED A T [facility] 6720 (BEAKER) (test code = [facility], 1538) 39156: Electrical Discharge Machine Operator/Techni kathryn ID = [id number] for GABRIELLA PINEDA POCT-GLUCOSE [id number] 07:02:00 Test Item Value Reference Range Interpretation Comments POC-GLUCOSE METER 115 mg/dL 70-110 H : TESTED A T [facility] 6720 (BEAKER) (test code = [facility], 1538) 04042: Electrical Discharge Machine Operator/Techni kathryn ID = [id number] for HARMEET PRAJAPATI Immunoglobulin G (IgG)2020-08-02 05:27:00 Test Item Value Reference Range Interpretation Comments IgG (test code = 2465-3) 6982 mg/dL 540-1822 H HERBIE (test code = HERBIE) Electrical Discharge Machine Operator ID Shani POWELL L Lab Interpretation (test Abnormal code = 44603-1) [facility]2020-08-02 05:27:00 Test Item Value Reference Range Interpretation Comments IMMUNOGLOBULIN G (IGG) (BEAKER) 6982 mg/dL 540-1,822 H (test code = 427) Electrical Discharge Machine Operator ID - SHERRY CARLSON - SHERRY LBASIC METABOLIC [id number] 04:45:00 Test Item Value Reference Range Interpretation [...] S NOT APPLICABLE FOR DIALYSIS PATIEN TS. Electrical Discharge Machine Operator ID - PIMARGARITA [id number] 04:36:00 Test Item Value Reference Range Interpretation Comments MAGNESIUM (BEAKER) 1.8 mg/dL 1.6-2.6 Specimen slightly (test code = 627) hemolyzed Electrical Discharge Machine Operator ID - SHERRY [id number] 04:36:00 Test Item Value Reference Range Interpretation Comments PHOSPHORUS (BEAKER) 2.7 mg/dL 2.3-4.7 Specimen slightly (test code = 604) hemolyzed Electrical Discharge Machine Operator ID - SHERRY LCBC W/PLT COUNT & AUTO [id number] 03:48:00 Test Item Value Reference Range Interpretation [...] PERCENT (BEAKER) (test code = 2801) HEMODIALYSIS [id number] 23:56:24James Silverio RN 08/01/2020 11:58 PMTolerated and [...] (H) 08/01/2020 James FINKN, RN II7S6- Adult [id number] 355 6760[facility] [id number] 17:32:00 Test Item Value Reference Range Interpretation Comments PHOSPHORUS (BEAKER) (test code = 4.4 mg/dL 2.3-4.7 604) Electrical Discharge Machine Operator ID - DBOperator ID - DBPOCT-GLUCOSE [id number] 17:23:00 Test Item Value Reference Range Interpretation Comments POC-GLUCOSE METER 114 mg/dL 70-110 H : TESTED A T [facility] 6720 (BEAKER) (test code = CARLO JASS[place], 1538) 12232: Electrical Discharge Machine Operator/Techni kathryn ID = [id number] for GABRIELLA PINEDA BASIC METABOLIC [id number] 16:24:00 Test Item Value Reference Range Interpretation [...] S NOT APPLICABLE FOR DIALYSIS PATIEN TS. Electrical Discharge Machine Operator ID - BSPOCT-GLUCOSE [id number] 12:58:00 Test Item Value Reference Range Interpretation Comments POC-GLUCOSE METER 112 mg/dL 70-110 H : TESTED A T [facility] 6720 (BEAKER) (test code = CARLO Lin [place], 1538) 81477: Electrical Discharge Machine Operator/Techni kathryn ID = [id number] for GABRIELLA PINEDA POCT-GLUCOSE [id number] 07:53:00 Test Item Value Reference Range Interpretation Comments POC-GLUCOSE METER 108 mg/dL 70-110 : TESTED A T [facility] 6720 (BEAKER) (test code = CARLO Lin [place], 1538) 42095: Electrical Discharge Machine Operator/Techni kathryn ID = [id number] for GABRIELLA PINEDA Hepatic function [id number] 05:29:00 Test Item Value Reference Range Interpretation Comments Protein, Total (test code 10.9 6.0- 8.3 gm/dL H = 2885-2) Albumin (test code = 2.2 g/dL 3.5-5 L 39487-8) Total Bilirubin (test code 0.3 mg/dL 0.2-1.2 = 1975-2) Bilirubin, Direct (test 0.2 mg/dL 0.1-0.5 code = 1967-7) Alkaline Phosphatase (test 58 U/L 40-150 code = 6768-6) AST (test code = 1920-8) 15 U/L 5-34 ALT (test code = 1742-6) 6 U/L 6-55 HERBIE (test code = HERBIE) Electrical Discharge Machine Operator ID - SHERRY L Lab Interpretation (test Abnormal code = 33339-5) [facility] 05:29:00 Test Item Value Reference Range Interpretation Comments MAGNESIUM (BEAKER) (test code = 1.7 mg/dL 1.6-2.6 627) Electrical Discharge Machine Operator ID - SHERRY [id number] 05:29:00 Test Item Value Reference Range Interpretation Comments PHOSPHORUS (BEAKER) (test code = 1.9 mg/dL 2.3-4.7 L 604) Electrical Discharge Machine Operator ID - SHERRY LHEPATIC FUNCTION [id number] 05:29:00 Test Item Value Reference Range Interpretation [...] (test code = 6 U/L 6-55 347) Electrical Discharge Machine Operator ID - PIAYA LBASIC METABOLIC [id number] 05:29:00 Test Item Value Reference Range Interpretation [...] S NOT APPLICABLE FOR DIALYSIS PATIEN TS. Electrical Discharge Machine Operator ID - PIAYA LCBC W/PLT COUNT & AUTO [id number] 04:03:00 Test Item Value Reference Range Interpretation [...] (BEAKER) (test code = 2801) Prepare Leuko-Red [id number] 23:54:00 Test Item Value Reference Range Interpretation Comments CROSSMATCH (test code = 2264) COMPATIBLE Unit ABO (test code = B Pos 3063264) UNIT NUMBER (test code = [id number] 934-0) Status (test code = 2064432) TX_TIMEINCHART Blood Bank Product (test code RED BLOOD CELLS = 2263) PRODUCT CODE (test code = J3270A73 933-2) [facility] [id number] 21:36:00 Test Item Value Reference Range Interpretation Comments POC-GLUCOSE METER 107 mg/dL 70-110 : Notified RN/MD: TESTED (BEAKER) (test code AT [facility] [address] = 1538) [place], 7[address]: Electrical Discharge Machine Operator/Techni kathryn ID = [id number] for ASH BRANDON POCT-GLUCOSE [id number] 11:38:00 Test Item Value Reference Range Interpretation Comments POC-GLUCOSE METER 115 mg/dL 70-110 H : TESTED A T [facility] 6720 (BEAKER) (test code = CARLO Lin [facility], 1538) 27078: Electrical Discharge Machine Operator/Techni kathryn ID = [id number] for JAEL MARX BASIC METABOLIC [id number] 08:25:00 Test Item Value Reference Range Interpretation [...] S NOT APPLICABLE FOR DIALYSIS PATIEN TS. Electrical Discharge Machine Operator ID - MJ [id number] 08:13:00 Test Item Value Reference Range Interpretation Comments MAGNESIUM (BEAKER) (test code = 1.8 mg/dL 1.6-2.6 627) Electrical Discharge Machine Operator ID - MJ [id number] 08:13:00 Test Item Value Reference Range Interpretation Comments PHOSPHORUS (BEAKER) (test code = 2.6 mg/dL 2.3-4.7 604) Electrical Discharge Machine Operator ID - MJ CPOCT-GLUCOSE [id number] 07:50:00 Test Item Value Reference Range Interpretation Comments POC-GLUCOSE METER 112 mg/dL 70-110 H : TESTED A T [facility] 6720 (BEAKER) (test code = [facility], 153) 25050: Electrical Discharge Machine Operator/Techni kathryn ID = [id number] for Arianna Acosta POCT-GLUCOSE [id number] 07:41:00 Test Item Value Reference Range Interpretation Comments POC-GLUCOSE METER 103 mg/dL 70-110 : TESTED A T [facility] 6720 (BEAKER) (test code = [facility], 1538) 02697: Electrical Discharge Machine Operator/Techni kathryn ID = [id number] for SA NCHEZ, JAEL CBC W/PLT COUNT & AUTO [id number] 06:43:00 Test Item Value Reference Range Interpretation [...] PERCENT (BEAKER) (test code = 2801) POCT-GLUCOSE [id number] 21:48:00 Test Item Value Reference Range Interpretation Comments POC-GLUCOSE METER 96 mg/dL 70-110 : Not[facility] RN[facility]MD: [facility] ([facility] = AT [facility] 67[address] [facility] 1538) [facility], 770 30: Electrical Discharge Machine Operator/Techni kathryn ID = [id number] for ASH BRANDON POCT-GLUCOSE [id number] 17:10:00 Test Item Value Reference Range Interpretation Comments POC-GLUCOSE METER 109 mg/dL 70-110 : [facility] (test code = [facility], 1538) 03017: Electrical Discharge Machine Operator/Techni kathryn ID = [id number] for DAVION ZURITAAIRIS POCT-GLUCOSE [id number] 12:25:00 Test Item Value Reference Range Interpretation Comments POC-GLUCOSE METER 91 mg/dL 70-110 : TESTED A T [facility] 6720 ([facility]) (test code = [facility], 1538) 01180: Electrical Discharge Machine Operator/Techni kathryn ID = [id number] for BRINA GONZALEZ Type and screen, [id number] 09:18:00 Test Item Value Reference Range Interpretation Comments ABO/RH AUTOMATED (BEAKER) (test B POSITIVE code = 2260) Ab Scrn (test code = 890-4) NEGATIVE [facility] [id number] 09:01:00 Test Item Value Reference Range Interpretation Comments POC-GLUCOSE METER 95 mg/dL 70-110 : TESTED A T [facility] 6720 (BEAKER) (test code = CARLO Delia [facility], 1538) 09649: Electrical Discharge Machine Operator/Techni kathryn ID = [id number] for JAYESH GUTIERREZ Hepatitis B surface [id number] 08:29:00 Test Item Value Reference Range Interpretation Comments HBsAg Screen (test code Nonreactive Nonreactive = 5195-3) HERBIE (test code = HERBIE) Specimen is considered negative for HBsAg. Lab Interpretation (test Normal code = 92144-6) [facility] HospitalHEPATITIS B SURFACE [id number] 08:29:00 Test Item Value Reference Range Interpretation Comments HEPATITIS B SURFACE ANTIGEN (2) Nonreactive Nonreactive (BEAKER) (test code = 2585) Specimen is considered negative for HBsAg.BASIC METABOLIC [id number] 06:35:00 Test Item Value Reference Range Interpretation [...] S NOT APPLICABLE FOR DIALYSIS PATIEN TS. Electrical Discharge Machine Operator ID - [id number] 06:23:00 Test Item Value Reference Range Interpretation Comments MAGNESIUM (BEAKER) (test code = 1.7 mg/dL 1.6-2.6 627) Electrical Discharge Machine Operator ID - [id number] 06:23:00 Test Item Value Reference Range Interpretation Comments PHOSPHORUS (BEAKER) (test code = 2.5 mg/dL 2.3-4.7 604) Electrical Discharge Machine Operator ID - EDASICBC W/PLT COUNT & AUTO [id number] 05:51:00 Test Item Value Reference Range Interpretation [...] PERCENT (BEAKER) (test code = 2801) Viscosity, [id number] 01:10:00 Test Item Value Reference Range Interpretation Comments VISCOSITY, SERUM (test 2.9 1.5- 1.9 Relative H code = 7189420) to H2O HERBIE (test code = HERBIE) Performing Lab EZ [facility] [address] [place] [address] Sunni Zuñiga MD, PhD, BHARAT Lab Interpretation Abnormal (test code = 40343-0) [facility] [id number] 22:18:00 Test Item Value Reference Range Interpretation Comments POC-GLUCOSE METER 130 mg/dL 70-110 H : TESTED A T [facility] 6720 (BEAKER) (test code = [facility], 153) 49009: Electrical Discharge Machine Operator/Techni kathryn ID = [id number] for МАРИНА CRESPO EPHRAIM POCT-GLUCOSE [id number] 17:13:00 Test Item Value Reference Range Interpretation Comments POC-GLUCOSE METER 93 mg/dL 70-110 : TESTED A T [facility] 6720 (BEAKER) (test code = [facility], 1538) 88595: Electrical Discharge Machine Operator/Techni kathryn ID = [id number] for BRINA GONZALEZ POCT-GLUCOSE [id number] 12:10:00 Test Item Value Reference Range Interpretation Comments POC-GLUCOSE METER 106 mg/dL 70-110 : TESTED A T [facility] 6720 (BEAKER) (test code = [facility], 153) 21283: Electrical Discharge Machine Operator/Techni kathryn ID = [id number] for DI [place], DAVIONAIRIS POCT-GLUCOSE [id number] 08:10:00 Test Item Value Reference Range Interpretation Comments POC-GLUCOSE METER 111 mg/dL 70-110 H : [facility] ([facility]ER[facility] (test code = CARLO [place], 1538) 01157: Electrical Discharge Machine Operator/Techni kathryn ID = [id number] for DI [place], ISSAIRIS BASIC METABOLIC [id number] 05:13:00 Test Item Value Reference Range Interpretation [...] S NOT APPLICABLE FOR DIALYSIS PATIEN TS. Electrical Discharge Machine Operator ID - [id number] 05:12:00 Test Item Value Reference Range Interpretation Comments MAGNESIUM (BEAKER) (test code = 1.8 mg/dL 1.6-2.6 627) Electrical Discharge Machine Operator ID - [id number] 05:12:00 Test Item Value Reference Range Interpretation Comments PHOSPHORUS (BEAKER) (test code = 2.6 mg/dL 2.3-4.7 604) Electrical Discharge Machine Operator ID - EDASICBC W/PLT COUNT & AUTO [id number] 04:43:00 Test Item Value Reference Range Interpretation [...] PERCENT (BEAKER) (test code = 2801) POCT-GLUCOSE [id number] 22:37:00 Test Item Value Reference Range Interpretation Comments POC-GLUCOSE METER 154 mg/dL 70-110 H : TESTED A T [facility] 6720 (BEAKER) (test code = [facility], 1538) 46826: Electrical Discharge Machine Operator/Techni kathryn ID = [id number] for DREA FAIRCHILD POCT-GLUCOSE [id number] 18:26:00 Test Item Value Reference Range Interpretation Comments POC-GLUCOSE METER 136 mg/dL 70-110 H : TESTED A T [facility] 6720 (BEAKER) (test code = [facility], 1538) 74708: Electrical Discharge Machine Operator/Techni kathryn ID = [id number] for GABRIELLA PINEDA POCT-GLUCOSE [id number] 13:23:00 Test Item Value Reference Range Interpretation Comments POC-GLUCOSE METER 91 mg/dL 70-110 : TESTED A T [facility] 6720 (BEAKER) (test code = [facility], 1538) 75655: Electrical Discharge Machine Operator/Techni kathryn ID = [id number] for GERALD BURNHAMIA BASIC METABOLIC [id number] 05:59:00 Test Item Value Reference Range Interpretation [...] S NOT APPLICABLE FOR DIALYSIS PATIEN TS. Electrical Discharge Machine Operator ID - PALAK [id number] 05:01:00 Test Item Value Reference Range Interpretation Comments MAGNESIUM (BEAKER) (test code = 1.7 mg/dL 1.6-2.6 627) Electrical Discharge Machine Operator ID - PALAK [id number] 05:01:00 Test Item Value Reference Range Interpretation Comments PHOSPHORUS (BEAKER) (test code = 2.0 mg/dL 2.3-4.7 L 604) Electrical Discharge Machine Operator ID - PALAK MCBC W/PLT COUNT & AUTO [id number] 04:15:00 Test Item Value Reference Range Interpretation [...] PERCENT (BEAKER) (test code = 2801) SARS-COV2/RT-PCR ([facility])2020-07-28 03:41:00 Test Item Value Reference Range Interpretation Comments SARS-COV2/RT-PCR (test Negative Not Detected, Negative, code = 2088337) See external report for linked test SARS-COV-2 PERFORMING LAB [facility] (test code = 9361291) Negative result for this test determines that [...] 564(g) of the Act.Fact Sheet for Healthcare Providers:https://www.[employer]/sites/default/files/product/documents/Fact_Shee y_FD_Llmathzss_Nbbn_AUGM-LqB-8.pdfFact Sheet for Healthcare Patients:https://www.[employer]/sites/default/files/product/ documents/Krpr_Sjjfh_Khcguelq_Dcau_QQWX-DiS-3.pdfPerforming Laboratory:[place] [address], [place] [address]WHRX-AJSEGIJ METER 2020-07-27 22:30:00 Test Item Value Reference Range Interpretation Comments POC-GLUCOSE METER 127 mg/dL 70-110 H : TESTED A T [facility] 6720 (BEAKER) (test code = [facility], 153) 99256: Electrical Discharge Machine Operator/Techni kathryn ID = [id number] for TORRES LL, OSHANELL POCT-GLUCOSE [id number] 17:37:00 Test Item Value Reference Range Interpretation Comments POC-GLUCOSE METER 172 mg/dL 70-110 H : TESTED A T [facility] 6720 (BEAKER) (test code = [facility], 153) 79653: Electrical Discharge Machine Operator/Techni kathryn ID = [id number] for MAYNOR SUAREZ GABRIELLA POCT-GLUCOSE [id number] 11:40:00 Test Item Value Reference Range Interpretation Comments POC-GLUCOSE METER 100 mg/dL 70-110 : TESTED A T [facility] 6720 (BEAKER) (test code = [facility], 153) 45235: Electrical Discharge Machine Operator/Techni kathryn ID = [id number] for EMMA DHILLON POCT-GLUCOSE [id number] 08:32:00 Test Item Value Reference Range Interpretation Comments POC-GLUCOSE METER 111 mg/dL 70-110 H : TESTED A T [facility] 6720 (BEAKER) (test code = [facility], 153) 55037: Electrical Discharge Machine Operator/Techni kathryn ID = [id number] for EMMA DHILLON [id number] 05:19:00 Test Item Value Reference Range Interpretation Comments PHOSPHORUS (BEAKER) (test code = 1.4 mg/dL 2.3-4.7 LL 604) Electrical Discharge Machine Operator ID - EDASIBASIC METABOLIC [id number] 04:59:00 Test Item Value Reference Range Interpretation [...] S NOT APPLICABLE FOR DIALYSIS PATIEN TS. Electrical Discharge Machine Operator ID - [id number] 04:55:00 Test Item Value Reference Range Interpretation Comments MAGNESIUM (BEAKER) (test code = 1.6 mg/dL 1.6-2.6 627) Electrical Discharge Machine Operator ID - EDASICBC W/PLT COUNT & AUTO [id number] 04:12:00 Test Item Value Reference Range Interpretation [...] PERCENT (BEAKER) (test code = 2801) POCT-GLUCOSE [id number] 21:50:00 Test Item Value Reference Range Interpretation Comments POC-GLUCOSE METER 108 mg/dL 70-110 : Notified RN/: TESTED (BEAKER) (test code AT [facility] [address] = 1538) [facility], [facility] 30: Electrical Discharge Machine Operator/Techni kathryn ID = [id number] for ASH BRANDON POCT-GLUCOSE [id number] 17:01:00 Test Item Value Reference Range Interpretation Comments POC-GLUCOSE METER 92 mg/dL 70-110 : [facility] Debbie Lewis [facility] (BEAKER) (test code = CARLO Lin [facility], 1538) 45950: Electrical Discharge Machine Operator/Techni kathryn ID = [id number] for SANC HEZ, JAEL POCT-GLUCOSE [id number] 12:07:00 Test Item Value Reference Range Interpretation Comments POC-GLUCOSE METER 117 mg/dL 70-110 H : TESTED A T [facility] 6720 (BEAKER) (test code = CARLO Lin [facility], 153) 85134: Electrical Discharge Machine Operator/Techni kathryn ID = [id number] for EMMA RSHALL (V), YASEMIN HEMODIALYSIS [id number] 12:00:00Yasemin Pedraza RN 07/27/2020 10:17 AMLab Results [...] other than chronic confusion. Yasemin Pedraza RNCHI [facility] HospitalPOCT-GLUCOSE [id number] 08:19:00 Test Item Value Reference Range Interpretation Comments POC-GLUCOSE METER 112 mg/dL 70-110 H : TESTED A T [facility] 6720 (BEAKER) (test code = CARLO Lin [facility], 1538) 88325: Electrical Discharge Machine Operator/Techni kathryn ID = [id number] for SA NCHEZ, JAEL [id number] 06:19:00 Test Item Value Reference Range Interpretation Comments PHOSPHORUS (BEAKER) 1.4 mg/dL 2.3-4.7 LL Specimen slightly (test code = 604) hemolyzed Electrical Discharge Machine Operator ID - SHERRY LBASIC METABOLIC [id number] 06:14:00 Test Item Value Reference Range Interpretation [...] S NOT APPLICABLE FOR DIALYSIS PATIEN TS. Electrical Discharge Machine Operator ID - SHERRY [id number] 06:13:00 Test Item Value Reference Range Interpretation Comments MAGNESIUM (BEAKER) 1.6 mg/dL 1.6-2.6 Specimen slightly (test code = 627) hemolyzed Electrical Discharge Machine Operator ID - SHERRY LCBC W/PLT COUNT & AUTO [id number] 05:46:00 Test Item Value Reference Range Interpretation [...] PERCENT (BEAKER) (test code = 2801) POCT-GLUCOSE [id number] 21:31:00 Test Item Value Reference Range Interpretation Comments POC-GLUCOSE METER 108 mg/dL 70-110 : TESTED A T [facility] 6720 (BEAKER) (test code = CARLO [place], 1538) 94606: Electrical Discharge Machine Operator/Techni kathryn ID = [id number] for Wi lliams, Otelia POCT-GLUCOSE [id number] 17:09:00 Test Item Value Reference Range Interpretation Comments POC-GLUCOSE METER 111 mg/dL 70-110 H : TESTED A T [facility] 6720 (BEAKER) (test code = [facility], 1538) 36438: Electrical Discharge Machine Operator/Techni kathryn ID = [id number] for OR KEV CONNORS POCT-GLUCOSE [id number] 12:18:00 Test Item Value Reference Range Interpretation Comments POC-GLUCOSE METER 113 mg/dL 70-110 H : TESTED A T [facility] 6720 (BEAKER) (test code = [facility], 1538) 23879: Electrical Discharge Machine Operator/Techni kathryn ID = [id number] for OR PHESonya, KEV Antibody [id number] 11:27:00 Test Item Value Reference Range Interpretation Comments Ab Scrn (test code = 890-4) NEGATIVE [facility], [id number] 10:36:00 Test Item Value Reference Range Interpretation Comments ABO Grouping (test code = 2588) B Rh Factor (test code = 2589) POS [facility] [id number] 08:10:00 Test Item Value Reference Range Interpretation Comments POC-GLUCOSE METER 96 mg/dL 70-110 : TESTED A T [facility] 6720 (BEAKER) (test code = [facility], 1538) 24522: Electrical Discharge Machine Operator/Techni kathryn ID = [id number] for ORPH KEV ALVAREZ IMMUNOGLOBULIN G (IGG)2020-07-25 06:59:00 Test Item Value Reference Range Interpretation Comments IMMUNOGLOBULIN G (IGG) (BEAKER) 7189 mg/dL 540-1,822 H (test code = 427) Electrical Discharge Machine Operator ID - DBOperator ID - DBBASIC METABOLIC [id number] 05:53:00 Test Item Value Reference Range Interpretation [...] S NOT APPLICABLE FOR DIALYSIS PATIEN TS. Electrical Discharge Machine Operator ID - [id number] 05:52:00 Test Item Value Reference Range Interpretation Comments MAGNESIUM (BEAKER) (test code = 1.4 mg/dL 1.6-2.6 L 627) Electrical Discharge Machine Operator ID - [id number] 05:52:00 Test Item Value Reference Range Interpretation Comments PHOSPHORUS (BEAKER) (test code = 1.9 mg/dL 2.3-4.7 L 604) Electrical Discharge Machine Operator ID - EDASICBC W/PLT COUNT & AUTO [id number] 05:08:00 Test Item Value Reference Range Interpretation [...] PERCENT (BEAKER) (test code = 2801) POCT-GLUCOSE [id number] 23:04:00 Test Item Value Reference Range Interpretation Comments POC-GLUCOSE METER 91 mg/dL 70-110 : TESTED A T [facility] 6720 (BEAKER) (test code = [facility], 153) 84021: Electrical Discharge Machine Operator/Techni kathryn ID = [id number] for GARCIA RANJITHELL POCT-GLUCOSE [id number] 18:01:00 Test Item Value Reference Range Interpretation Comments POC-GLUCOSE METER 105 mg/dL 70-110 : TESTED A T [facility] 6720 (BEAKER) (test code = [facility], 153) 66994: Electrical Discharge Machine Operator/Techni kathryn ID = [id number] for GABRIELLA PINEDA POCT-GLUCOSE [id number] 14:04:00 Test Item Value Reference Range Interpretation Comments POC-GLUCOSE METER 105 mg/dL 70-110 : TESTED A T [facility] 6720 (BEAKER) (test code = [place] R [place], 1538) 21128: Electrical Discharge Machine Operator/Techni kathryn ID = [id number] for GABRIELLA PINEDA POCT-GLUCOSE [id number] 08:48:00 Test Item Value Reference Range Interpretation Comments POC-GLUCOSE METER 109 mg/dL 70-110 : TESTED A T [facility] 6720 (BEAKER) (test code = CARLO Lin [facility], 1538) 44547: Electrical Discharge Machine Operator/Techni kathryn ID = [id number] for GABRIELLA PINEDA [id number] 06:47:00 Test Item Value Reference Range Interpretation Comments PHOSPHORUS (BEAKER) (test code = 1.1 mg/dL 2.3-4.7 LL 604) Electrical Discharge Machine Operator ID - EDASIHEPATIC FUNCTION [id number] 06:41:00 Test Item Value Reference Range Interpretation [...] code = < U/L 6-55 L 347) Electrical Discharge Machine Operator ID - EDASIBASIC METABOLIC [id number] 06:36:00 Test Item Value Reference Range Interpretation [...] S NOT APPLICABLE FOR DIALYSIS PATIEN TS. Electrical Discharge Machine Operator ID - [id number] 06:34:00 Test Item Value Reference Range Interpretation Comments MAGNESIUM (BEAKER) (test code = 1.5 mg/dL 1.6-2.6 L 627) Electrical Discharge Machine Operator ID - EDASICBC W/PLT COUNT & AUTO [id number] 06:19:00 Test Item Value Reference Range Interpretation [...] PERCENT (BEAKER) (test code = 2801) POCT-GLUCOSE [id number] 21:37:00 Test Item Value Reference Range Interpretation Comments POC-GLUCOSE METER 141 mg/dL 70-110 H : TESTED A T [facility] 6720 (BEAKER) (test code = SADESHORTY Lin [facility], 1538) 64317: Electrical Discharge Machine Operator/Techni kathryn ID = [id number] for MELISSA LACY, RANJITHMAXWELL HEMODIALYSIS [id number] 20:06:35Venancio Dominique RN 07/23/2020 8:07 PMPatient tolerated [...] Lab Results Component Value Date HEPBSAG Nonreactive 07/05/2020[facility] [id number] 12:13:00 Test Item Value Reference Range Interpretation Comments POC-GLUCOSE METER 92 mg/dL 70-110 : TESTED A T [facility] 6720 (BEAKER) (test code = CARLO Lin [facility], 1538) 19881: Electrical Discharge Machine Operator/Techni kathryn ID = [id number] for BRINA GONZALEZ POCT-GLUCOSE [id number] 08:15:00 Test Item Value Reference Range Interpretation Comments POC-GLUCOSE METER 72 mg/dL 70-110 : TESTED A T [facility] 6720 (BEAKER) (test code = CARLO Lin [facility], 1538) 41053: Electrical Discharge Machine Operator/Techni kathryn ID = [id number] for BRINA GONZALEZ ECG 12 [id number] 07:05:58Interface, External Ris In - 07/23/2020 7:06 AM CDTVentricular Rate 70 BPMAtrial Rate 70 BPMP-R Interval 110 msQRS Duration 100 msQ-T Interval 460 msQTC Calculation(Bazett) 496 msP [place] 40 degreesR [place] 35 degreesT [place] 62 degreesSinus rhythm with short PRT wave inversion V3-V4 consider postischemic changesProlonged QTAbnormal ECGWhen compared with ECG of 16-JUL-2020 16:17,T waves are no longer negative in V1-Z3Hvuylmpky by MD BRADLEY, EMERALD ([id number]) on 07/23/2020 7:05:52 [facility] [id number] 05:42:00 Test Item Value Reference Range Interpretation [...] S NOT APPLICABLE FOR DIALYSIS PATIEN TS. Electrical Discharge Machine Operator ID - [id number] 05:41:00 Test Item Value Reference Range Interpretation Comments MAGNESIUM (BEAKER) (test code = 1.6 mg/dL 1.6-2.6 627) Electrical Discharge Machine Operator ID - [id number] 05:41:00 Test Item Value Reference Range Interpretation Comments PHOSPHORUS (BEAKER) (test code = 2.2 mg/dL 2.3-4.7 L 604) Electrical Discharge Machine Operator ID - EDASICBC W/PLT COUNT & AUTO [id number] 04:44:00 Test Item Value Reference Range Interpretation [...] PERCENT (BEAKER) (test code = 2801) POCT-GLUCOSE [id number] 21:42:00 Test Item Value Reference Range Interpretation Comments POC-GLUCOSE METER 89 mg/dL 70-110 : TESTED A T [facility] 6720 (BEAKER) (test code = [facility], 1538) 93105: Electrical Discharge Machine Operator/Techni kathryn ID = [id number] for GARCIA RANJITHELL POCT-GLUCOSE [id number] 17:11:00 Test Item Value Reference Range Interpretation Comments POC-GLUCOSE METER 91 mg/dL 70-110 : TESTED A T [facility] 6720 (BEAKER) (test code = [facility], 1538) 46508: Electrical Discharge Machine Operator/Techni kathryn ID = [id number] for JAIM E KILLIAN, SONIA POCT-GLUCOSE [id number] 12:29:00 Test Item Value Reference Range Interpretation Comments POC-GLUCOSE METER 107 mg/dL 70-110 : TESTED A T [facility] 6720 (BEAKER) (test code [facility], = 1538) 12049: Electrical Discharge Machine Operator/Techni kathryn ID = [id number] for JAIM E KILLIAN, SONIA POCT-GLUCOSE [id number] 08:03:00 Test Item Value Reference Range Interpretation Comments POC-GLUCOSE METER 127 mg/dL 70-110 H : TESTED A T [facility] 6720 (BEAKER) (test code [place], = 1538) 12730: Electrical Discharge Machine Operator/Techni kathryn ID = [id number] for SONIA COBOS BASIC METABOLIC [id number] 06:20:00 Test Item Value Reference Range Interpretation [...] S NOT APPLICABLE FOR DIALYSIS PATIEN TS. Electrical Discharge Machine Operator ID - [id number] 06:09:00 Test Item Value Reference Range Interpretation Comments MAGNESIUM (BEAKER) (test code = 1.7 mg/dL 1.6-2.6 627) Electrical Discharge Machine Operator ID - [id number] 06:09:00 Test Item Value Reference Range Interpretation Comments PHOSPHORUS (BEAKER) (test code = 2.0 mg/dL 2.3-4.7 L 604) Electrical Discharge Machine Operator ID - EDASICBC W/PLT COUNT & AUTO [id number] 05:37:00 Test Item Value Reference Range Interpretation [...] PERCENT (BEAKER) (test code = 2801) HEMODIALYSIS [id number] 23:12:34James Silverio RN 07/21/2020 11:16 PMTolerated and [...] (H) 07/21/2020 James VILLAFUERTE, RN II7S6- Adult Bxgcvokl531 [facility] 6760[facility] Hospital[facility] [id number] 23:04:00 Test Item Value Reference Range Interpretation Comments POC-GLUCOSE METER 146 mg/dL 70-110 H : TESTED A T [facility] 6720 (BEAKER) (test code = [facility], 1538) 89166: Electrical Discharge Machine Operator/Techni kathryn ID = [id number] for Jacquie sridhar, James POCT-GLUCOSE [id number] 23:00:00 Test Item Value Reference Range Interpretation Comments POC-GLUCOSE METER 60 mg/dL 70-110 L : TESTED A T [facility] 6720 (BEAKER) (test code = [facility], 1538) 44528: Electrical Discharge Machine Operator/Techni kathryn ID = [id number] for Virginia arce, James POCT-GLUCOSE [id number] 18:02:00 Test Item Value Reference Range Interpretation Comments POC-GLUCOSE METER 97 mg/dL 70-110 : TESTED A T [facility] 6720 (BEAKER) (test code = [facility], 153) 00725: Electrical Discharge Machine Operator/Techni kathryn ID = [id number] for OJED A, JOS POCT-GLUCOSE [id number] 17:11:00 Test Item Value Reference Range Interpretation Comments POC-GLUCOSE METER 65 mg/dL 70-110 L : TESTED A T [facility] 6720 (BEAKER) (test code = CARLO Lin [facility], 1538) 65832: Electrical Discharge Machine Operator/Techni kathryn ID = [id number] for JOS LARA POCT-GLUCOSE [id number] 13:15:00 Test Item Value Reference Range Interpretation Comments POC-GLUCOSE METER 104 mg/dL 70-110 : TESTED A T [facility] 6720 (BEAKER) (test code = CARLO Lin [facility], 1538) 47759: Electrical Discharge Machine Operator/Techni kathryn ID = [id number] for JOSE ANTONIO SALEH POCT-GLUCOSE [id number] 12:38:00 Test Item Value Reference Range Interpretation Comments POC-GLUCOSE METER 69 mg/dL 70-110 L : TESTED A T [facility] 6720 (BEAKER) (test code = CARLO Lin [facility], 1538) 72692: Electrical Discharge Machine Operator/Techni kathryn ID = [id number] for GABRIELLA BURNHAM POCT-GLUCOSE [id number] 08:31:00 Test Item Value Reference Range Interpretation Comments POC-GLUCOSE METER 98 mg/dL 70-110 : TESTED A T [facility] 6720 (Toad MedicalAKER) (test code = CARLO Lin [facility], 1538) 20734: Electrical Discharge Machine Operator/Techni kathryn ID = [id number] for JOS LARA [id number] 05:21:00 Test Item Value Reference Range Interpretation Comments Protime (test code = 17.4 11.9- 14.2 H 5902-2) seconds INR (test code = 1.47 <=5.90 6301-6) PTT (test code = 25.2 22.5- 36.0 02413-4) seconds HERBIE (test code = HERBIE) Effective 03/04/2019: PT Reference Range ChangeNew: 11.9-14.2 Previous: 11.7-14.7 RECOMMENDED COUMADIN/WARFARIN INR THERAPY RANGESSTANDARD DOSE: 2.0-3.0 Includes: PROPHYLAXIS for venous thrombosis, systemic embolization; TREATMENT for venous thrombosis and/or pulmonary embolus.HIGH RISK: Target INR is 2.5-3.5 for patients wiht mechanical heart valves. Lab Interpretation Abnormal (test code = 73474-5) [facility] HospitalPT/[id number] 05:21:00 Test Item Value Reference Range Interpretation [...] for patients wiht mechanical heart valves.BASIC METABOLIC [id number] 05:20:00 Test Item Value Reference Range Interpretation [...] S NOT APPLICABLE FOR DIALYSIS PATIEN TS. Electrical Discharge Machine Operator ID - PALAK [id number] 05:18:00 Test Item Value Reference Range Interpretation Comments MAGNESIUM (BEAKER) (test code = 1.7 mg/dL 1.6-2.6 627) Electrical Discharge Machine Operator ID - PALAK [id number] 05:18:00 Test Item Value Reference Range Interpretation Comments PHOSPHORUS (BEAKER) (test code = 2.7 mg/dL 2.3-4.7 604) Electrical Discharge Machine Operator ID - PALAK MCBC W/PLT COUNT & AUTO [id number] 05:09:00 Test Item Value Reference Range Interpretation [...] PERCENT (BEAKER) (test code = 2801) POCT-GLUCOSE [id number] 16:51:00 Test Item Value Reference Range Interpretation Comments POC-GLUCOSE METER 82 mg/dL 70-110 : TESTED A T [facility] 6720 (BEAKER) (test code = CARLO Lin [facility], 1538) 85631: Electrical Discharge Machine Operator/Techni kathryn ID = [id number] for ISAIAH Dodson SUKHWINDER SARS-COV2/RT-PCR ([facility])2020-07-20 13:31:00 Test Item Value Reference Range Interpretation Comments SARS-COV2/RT-PCR (test Negative Not Detected, Negative, code = 7991692) See external report for linked test SARS-COV-2 PERFORMING LAB [facility] CASSANDRA (test code = 3211841) Negative result for this test determines that [...] 564(g) of the Act.Fact Sheet for Healthcare Providers:https://www.[employer]/sites/default/files/product/documents/Fact_Shee v_XF_Phbgqeymo_Ztmo_GHZL-IpV-0.pdfFact Sheet for Healthcare Patients:https://www.[employer]/sites/default/files/product/ documents/Dgah_Vrntu_Yalolywe_Fmkv_XUHN-WpA-6.pdfPerforming Laboratory:[place] [address] [facility], [place], [place] [address]XGPH-LBRYUXZ METER 2020-07-20 12:19:00 Test Item Value Reference Range Interpretation Comments POC-GLUCOSE METER 87 mg/dL 70-110 : TESTED A T [facility] 6720 (BEAKER) (test code = CARLO Lin [facility], 1538) 60966: Electrical Discharge Machine Operator/Techni kathryn ID = [id number] for SUKHWINDER BURNHAM POCT-GLUCOSE [id number] 09:19:00 Test Item Value Reference Range Interpretation Comments POC-GLUCOSE METER 114 mg/dL 70-110 H : TESTED A T [facility] 6720 (BEAKER) (test code [facility], = 1538) 64123: Electrical Discharge Machine Operator/Techni kathryn ID = [id number] for MEGAN Dodson NAOMIRAYMOND IMMUNOGLOBULIN G (IGG)2020-07-20 04:58:00 Test Item Value Reference Range Interpretation Comments IMMUNOGLOBULIN G (IGG) (BEAKER) 9540 mg/dL 540-1,822 H (test code = 427) Electrical Discharge Machine Operator ID - PALAK MOperator ID - PALAK MBASIC METABOLIC [id number] 04:25:00 Test Item Value Reference Range Interpretation [...] S NOT APPLICABLE FOR DIALYSIS PATIEN TS. Electrical Discharge Machine Operator ID - PALAK [id number] 04:16:00 Test Item Value Reference Range Interpretation Comments MAGNESIUM (BEAKER) (test code = 1.5 mg/dL 1.6-2.6 L 627) Electrical Discharge Machine Operator ID - PALAK [id number] 04:16:00 Test Item Value Reference Range Interpretation Comments PHOSPHORUS (BEAKER) (test code = 2.3 mg/dL 2.3-4.7 604) Electrical Discharge Machine Operator ID - PALAK MCBC W/PLT COUNT & AUTO [id number] 03:48:00 Test Item Value Reference Range Interpretation [...] PERCENT (BEAKER) (test code = 2801) POCT-GLUCOSE [id number] 18:26:00 Test Item Value Reference Range Interpretation Comments POC-GLUCOSE METER 151 mg/dL 70-110 H : TESTED A T [facility] 6720 (BEAKER) (test code = [facility], 153) 97563: Electrical Discharge Machine Operator/Techni kathryn ID = [id number] for CARDOZA BLET, DOUG POCT-GLUCOSE [id number] 18:24:00 Test Item Value Reference Range Interpretation Comments POC-GLUCOSE METER 68 mg/dL 70-110 L : TESTED A T [facility] 6720 (BEAKER) (test code = [facility], 153) 70817: Electrical Discharge Machine Operator/Techni kathryn ID = [id number] for GARC IA, CASSIDY POCT-GLUCOSE [id number] 17:05:00 Test Item Value Reference Range Interpretation Comments POC-GLUCOSE METER 68 mg/dL 70-110 L : TESTED A T [facility] 6720 (BEAKER) (test code = [facility], 1538) 71530: Electrical Discharge Machine Operator/Techni kathryn ID = [id number] for SUBL ETDOUG POCT-GLUCOSE [id number] 11:37:00 Test Item Value Reference Range Interpretation Comments POC-GLUCOSE METER 93 mg/dL 70-110 : TESTED A T [facility] 6720 (BEAKER) (test code = [facility], 1538) 18744: Electrical Discharge Machine Operator/Techni kathryn ID = [id number] for STOJ CIC, NADA POCT-GLUCOSE [id number] 08:03:00 Test Item Value Reference Range Interpretation Comments POC-GLUCOSE METER 100 mg/dL 70-110 : TESTED A T [facility] 6720 (BEAKER) (test code = [facility], 1538) 31538: Electrical Discharge Machine Operator/Techni kathryn ID = [id number] for CARDOZA DOUG NAIR BASIC METABOLIC [id number] 04:24:00 Test Item Value Reference Range Interpretation [...] S NOT APPLICABLE FOR DIALYSIS PATIEN TS. Electrical Discharge Machine Operator ID - [id number] 04:13:00 Test Item Value Reference Range Interpretation Comments MAGNESIUM (BEAKER) (test code = 1.5 mg/dL 1.6-2.6 L 627) Electrical Discharge Machine Operator ID - [id number] 04:13:00 Test Item Value Reference Range Interpretation Comments PHOSPHORUS (BEAKER) (test code = 2.5 mg/dL 2.3-4.7 604) Electrical Discharge Machine Operator ID - EDASICBC W/PLT COUNT & AUTO [id number] 04:02:00 Test Item Value Reference Range Interpretation [...] 450 K/CU MM MPV (test code = 88470-3) 10.7 fL 9.4-12.3 nRBC (test code = 413) 0 0- 0 /100 WBC Lab Interpretation (test code = Abnormal 69846-7) [facility]2020-07-19 03:51:00 Test Item Value [...] 0-0 (BEAKER) (test code = 413) POCT-GLUCOSE [id number] 23:52:00 Test Item Value Reference Range Interpretation Comments POC-GLUCOSE METER 70 mg/dL 70-110 : TESTED A T [facility] 6720 ([facility]) (test code = CARLO Lin [facility], 1538) 50424: Electrical Discharge Machine Operator/Techni kathryn ID = [id number] for Venancio Khan HEMODIALYSIS [id number] 23:00:00James Silverio RN 07/18/2020 11:47 PMTolerated and [...] (H) 07/18/2020 James VILLAFUERTE, RN II7S6- Adult [id number] 355 [facility]359[facility] [id number] 16:52:00 Test Item Value Reference Range Interpretation Comments POC-GLUCOSE METER 75 mg/dL 70-110 : TESTED A T [facility] 6720 (BEAKER) (test code = CARLO Lin [facility], 1538) 74734: Electrical Discharge Machine Operator/Techni kathryn ID = [id number] for JETHRO DIALLO POCT-GLUCOSE [id number] 12:21:00 Test Item Value Reference Range Interpretation Comments POC-GLUCOSE METER 75 mg/dL 70-110 : TESTED A T [facility] 6720 (BEAKER) (test code = CARLO Lin [facility], 1538) 32939: Electrical Discharge Machine Operator/Techni kathryn ID = [id number] for MEGAN SJETHRO ANG, TUNNELED CATHETER [id number] 11:50:00FINAL REPORT PROCEDURE: Tunneled hemodialysis catheter Placement CLINICAL HISTORY: esrd [employer]AR BUSINESS DEVELOPER: Jayden Stubbs DO, JD ANESTHESIA: Conscious sedation [...] vena cava. Under fluoroscopic guidance, a 15 Brazilian peel-away sheath was advanced overthe wire. I [...] Stubbs MDReport Verified Date/Time:07/18/2020 11:50:32 Reading Location: [place] [address] Angio Body Reading Room IR Tunneled Catheter [id number] 11:50:00Interface, External Ris In - 07/18/2020 12:02 PM CDTFINAL REPORT PROCEDURE: Tunneled hemodialysis catheter Placement CLINICAL HISTORY: esrd SOLAR BUSINESS DEVELOPER: Jayden Stubbs DO, JD ANESTHESIA: Conscious sedation [...] vena cava. Under fluoroscopic guidance, a 15 Brazilian peel-away sheath was advanced over the wire. [...] MDReport Verified Date/Time: 07/18/2020 11:50:32 Reading Location: [address] Body Reading [facility][id number] 09:02:00 Test Item Value Reference Range Interpretation [...] for patients wiht mechanical heart valves.BASIC METABOLIC [id number] 07:52:00 Test Item Value Reference Range Interpretation [...] S NOT APPLICABLE FOR DIALYSIS PATIEN TS. Electrical Discharge Machine Operator ID - PALAK [id number] 07:50:00 Test Item Value Reference Range Interpretation Comments MAGNESIUM (BEAKER) (test code = 1.8 mg/dL 1.6-2.6 627) Electrical Discharge Machine Operator ID - PALAK [id number] 07:50:00 Test Item Value Reference Range Interpretation Comments PHOSPHORUS (BEAKER) (test code = 5.0 mg/dL 2.3-4.7 H 604) Electrical Discharge Machine Operator ID - PALAK MPOCT-GLUCOSE [id number] 07:28:00 Test Item Value Reference Range Interpretation Comments POC-GLUCOSE METER 50 mg/dL 70-110 L : TESTED A T [facility] 6720 (BEAKER) (test code = CAR[place], 1538) 06157: Electrical Discharge Machine Operator/Techni kathryn ID = [id number] for JETHRO DIALLO CBC W/PLT COUNT & AUTO [id number] 07:08:00 Test Item Value Reference Range Interpretation [...] PERCENT (BEAKER) (test code = 2801) POCT-GLUCOSE [id number] 21:23:00 Test Item Value Reference Range Interpretation Comments POC-GLUCOSE METER 102 mg/dL 70-110 : TESTED Debbie Lewis [facility] 6720 (BEAKER) (test code = CARLO [place], 1538) 79642: Electrical Discharge Machine Operator/Techni kathryn ID = [id number] for EASTON SALEH BASIC METABOLIC [id number] 17:33:00 Test Item Value Reference Range Interpretation [...] S NOT APPLICABLE FOR DIALYSIS PATIEN TS. Electrical Discharge Machine Operator ID - RMPOCT-GLUCOSE [id number] 17:16:00 Test Item Value Reference Range Interpretation Comments POC-GLUCOSE METER 97 mg/dL 70-110 : TESTED A T [facility] 6720 (BESemblee_) (test code = [facility], 1538) 64207: Electrical Discharge Machine Operator/Techni kathryn ID = [id number] for SHASHI AGUILAR POCT-GLUCOSE [id number] 12:06:00 Test Item Value Reference Range Interpretation Comments POC-GLUCOSE METER 76 mg/dL 70-110 : TESTED A T [facility] 6720 (BEAKER) (test code = [facility], 1538) 81170: Electrical Discharge Machine Operator/Techni kathryn ID = [id number] for TEZE NO, TEO POCT-GLUCOSE [id number] 07:36:00 Test Item Value Reference Range Interpretation Comments POC-GLUCOSE METER 63 mg/dL 70-110 L : TESTED A T [facility] 6720 (BEAKER) (test code = [facility], 1538) 68418: Electrical Discharge Machine Operator/Techni kathryn ID = [id number] for TEZE NO, TEO Comprehensive metabolic [id number] 06:16:00 Test Item Value Reference Range Interpretation Comments Protein, Total (test 14.0 6.0- 8.3 gm/dL H code = 2885-2) Albumin (test code = 2.6 g/dL 3.5-5 L 40092-0) Alkaline Phosphatase 43 U/L 40-150 (test code [...] (test code = 6.9 mg/dL 8.4-10.2 L 36028-3) AST (test code = 18 U/L 5-34 1920-8) ALT (test code = 10 U/L 6-55 1742-6) EGFR (test code = 8 mL/min/1.73 [place] [address]-0) NOT ACCURATE CREATININE CLEARANCE IN PREDICTING GLOMERULAR FILTRATION RATE . ESTIMATED GFR I S NOT APPLICABLE FOR DIALYSIS PATIENTS. HERBIE (test code = HERBIE) Electrical Discharge Machine Operator ID - PIAYA L Lab Interpretation Abnormal (test code = 84352-7) [facility] Hospital[facility] [id number] 06:16:00 Test Item Value Reference Range Interpretation [...] S NOT APPLICABLE FOR DIALYSIS PATIEN TS. Electrical Discharge Machine Operator ID - PIMARGARITA [id number] 06:15:00 Test Item Value Reference Range Interpretation Comments MAGNESIUM (BEAKER) (test code = 1.8 mg/dL 1.6-2.6 627) Electrical Discharge Machine Operator ID - PIMARGARITA [id number] 06:15:00 Test Item Value Reference Range Interpretation Comments PHOSPHORUS (BEAKER) (test code = 4.7 mg/dL 2.3-4.7 604) Electrical Discharge Machine Operator ID - PIMARGARITA LCBC W/PLT COUNT & AUTO [id number] 05:58:00 Test Item Value Reference Range Interpretation [...] PERCENT (BEAKER) (test code = 2801) POCT-GLUCOSE [id number] 23:49:00 Test Item Value Reference Range Interpretation Comments POC-GLUCOSE METER 78 mg/dL 70-110 : TESTED Debbie T [facility] 6720 (BEAKER) (test code = [facility] [place], 1538) 16699: Electrical Discharge Machine Operator/Techni kathryn ID = [id number] for JAN FARAIS POCT-GLUCOSE [id number] 16:46:00 Test Item Value Reference Range Interpretation Comments POC-GLUCOSE METER 84 mg/dL 70-110 : TESTED A T [facility] 6720 (BEAKER) (test code = [facility], 1538) 74228: Electrical Discharge Machine Operator/Techni kathryn ID = [id number] for LEWI S, LATANDRIA POCT-GLUCOSE [id number] 12:08:00 Test Item Value Reference Range Interpretation Comments POC-GLUCOSE METER 77 mg/dL 70-110 : TESTED A T [facility] 6720 (BEAKER) (test code = [facility], 1538) 98869: Electrical Discharge Machine Operator/Techni kathryn ID = [id number] for LEWI S, LATANDRIA POCT-GLUCOSE [id number] 07:54:00 Test Item Value Reference Range Interpretation Comments POC-GLUCOSE METER 83 mg/dL 70-110 : TESTED A T [facility] 6720 (BEAKER) (test code = [facility], 1538) 86304: Electrical Discharge Machine Operator/Techni kathryn ID = [id number] for LEWI S, LATANDRIA COMPREHENSIVE METABOLIC [id number] 06:16:00 Test Item Value Reference Range Interpretation [...] S NOT APPLICABLE FOR DIALYSIS PATIEN TS. [id number] 06:09:00 Test Item Value Reference Range Interpretation Comments MAGNESIUM (BEAKER) (test code = 1.8 mg/dL 1.6-2.6 627) [id number] 06:09:00 Test Item Value Reference Range Interpretation Comments PHOSPHORUS (BEAKER) (test code = 3.8 mg/dL 2.3-4.7 604) CBC W/PLT COUNT & AUTO [id number] 06:03:00 Test Item Value Reference Range Interpretation [...] PERCENT (BEAKER) (test code = 2801) POCT-GLUCOSE [id number] 01:37:00 Test Item Value Reference Range Interpretation Comments POC-GLUCOSE METER 116 mg/dL 70-110 H : TESTED A T [facility] 6720 (BEAKER) (test code = [facility], 153) [address]: Electrical Discharge Machine Operator/Techni kathryn ID = [id number] for ARCENIO LEVIHOA SUSANAPATRICIA SALGADO POCT-GLUCOSE [id number] 17:48:00 Test Item Value Reference Range Interpretation Comments POC-GLUCOSE METER 102 mg/dL 70-110 : TESTED A T [facility] 6720 (BEAKER) (test code = [facility] [facility] 34747: Electrical Discharge Machine Operator/Techni kathryn ID = [id number] for SHASHI GUTIERREZ POCT-GLUCOSE [id number] 11:22:00 Test Item Value Reference Range Interpretation Comments POC-GLUCOSE METER 75 mg/dL 70-110 : TESTED A T [facility] 6720 (BEAKER) (test code = [facility], 153) 29536: Electrical Discharge Machine Operator/Techni kathryn ID = [id number] for STOJ CIC, NADA COMPREHENSIVE METABOLIC [id number] 07:38:00 Test Item Value Reference Range Interpretation [...] S NOT APPLICABLE FOR DIALYSIS PATIEN TS. Electrical Discharge Machine Operator ID - MJ CPOCT-GLUCOSE [id number] 07:37:00 Test Item Value Reference Range Interpretation Comments POC-GLUCOSE METER 89 mg/dL 70-110 : TESTED A T [facility] 6720 (BEAKER) (test code = [facility] [place], 1538) 89573: Electrical Discharge Machine Operator/Techni kathryn ID = [id number] for WILL IAMS, EASTON [id number] 07:34:00 Test Item Value Reference Range Interpretation Comments PHOSPHORUS (BEAKER) (test code = 3.2 mg/dL 2.3-4.7 604) Electrical Discharge Machine Operator ID - MJ [id number] 07:34:00 Test Item Value Reference Range Interpretation Comments MAGNESIUM (BEAKER) (test code = 1.7 mg/dL 1.6-2.6 627) Electrical Discharge Machine Operator ID - MJ CCBC W/PLT COUNT & AUTO [id number] 07:09:00 Test Item Value Reference Range Interpretation [...] PERCENT (BEAKER) (test code = 2801) POCT-GLUCOSE [id number] 01:04:00 Test Item Value Reference Range Interpretation Comments POC-GLUCOSE METER 80 mg/dL 70-110 : TESTED A T [facility] 6720 (BEAKER) (test code = [facility] [employer] [facility], 1538) 44527: Electrical Discharge Machine Operator/Techni kathryn ID = [id number] for EASTON CONLEY POCT-GLUCOSE [id number] 18:05:00 Test Item Value Reference Range Interpretation Comments POC-GLUCOSE METER 69 mg/dL 70-110 L : TESTED A T [facility] 6720 (BEAKER) (test code = [employer] [place], 1538) 59129: Electrical Discharge Machine Operator/Techni kathryn ID = [id number] for JUDSON RUTLEDGE HEMODIALYSIS [id number] 12:40:00Karo Escamilla RN 07/14/2020 1:03 PMHD set-up almost clotting mid-procedure, blood returned, rinsed and restarted with a new set-up. Patient was restless when awake during the procedure, tugs on her HD catheter and removing her gown, [facility] APOORVA Bro during report that patient would benefit with a sitter to keep her CTI Towers for her safety. Treatment fairly tolerated. Vital [...] BP: 101/64 Pulse: 92 Resp: 13 Temp: SpO2:[facility]UN[facility]FIXATION ELECTROPHORESIS (VERÓNICA)2020-07-14 11:40:00 Test Item Value Reference Range Interpretation Comments IMMUNOGLOBULIN G (IGG) 9190 mg/dL 540-1,822 H (BEAKER) (test code = 427) IMMUNOGLOBULIN A (IGA) 26 mg/dL 63-484 L (BEAKER) (test code = 639) IMMUNOGLOBULIN M (IGM) 21 mg/dL 22-293 L (BEAKER) (test code = 638) SERUM VERÓNICA ID (BEAKER) IgG-kappa, (test code = 1814) monoclonal [id number] Jessy Camacho, (BEAKER) (test code = (electronic 2597) signature) Electrical Discharge Machine Operator ID - MJ CImmunofixation electrophoresis (VERÓNICA)2020-07-14 10:18:00 Test Item Value Reference Range Interpretation Comments IgG (test code = 2465-3) 75498 mg/dL 540-1822 H IgA (test code = 2458-8) 20 mg/dL 63-484 L IgM (test code = 2464-6) 19 mg/dL 22-293 L Serum VERÓNICA Identification IgG-kappa, (test code = 1814) monoclonal Pathologist: (test code = Jessy Camacho, 2597) (electronic signature) HERBIE (test code = HERBIE) Electrical Discharge Machine Operator ID - MJ C Lab Interpretation (test Abnormal code = 95533-9) [facility]FIX[facility] ELECTROPHORESIS (VERÓNICA)2020-07-14 10:18:00 Test Item Value Reference Range Interpretation Comments IMMUNOGLOBULIN G (IGG) 24734 mg/dL 540-1,822 H (BEAKER) (test code = 427) IMMUNOGLOBULIN A (IGA) 20 mg/dL 63-484 L (BEAKER) (test code = 639) IMMUNOGLOBULIN M (IGM) 19 mg/dL 22-293 L (BEAKER) (test code = 638) SERUM VERÓNICA ID (BEAKER) IgG-kappa, (test code = 1814) monoclonal [id number] Jessy Camacho, (BEAKER) (test code = (electronic 1727) signature) Electrical Discharge Machine Operator ID - MJ CCOMPREHENSIVE METABOLIC [id number] 08:59:00 Test Item Value Reference Range Interpretation [...] S NOT APPLICABLE FOR DIALYSIS PATIEN TS. Electrical Discharge Machine Operator ID - PALAK [id number] 08:57:00 Test Item Value Reference Range Interpretation Comments PHOSPHORUS (BEAKER) (test code = 3.2 mg/dL 2.3-4.7 604) Electrical Discharge Machine Operator ID - PALAK [id number] 08:57:00 Test Item Value Reference Range Interpretation Comments MAGNESIUM (BEAKER) (test code = 1.8 mg/dL 1.6-2.6 627) Electrical Discharge Machine Operator ID - PALAK MCBC W/PLT COUNT & AUTO [id number] 08:44:00 Test Item Value Reference Range Interpretation [...] PERCENT (BEAKER) (test code = 2801) POCT-GLUCOSE [id number] 22:00:00 Test Item Value Reference Range Interpretation Comments POC-GLUCOSE METER 82 mg/dL 70-110 : TESTED A T [facility] 6720 (BEAKER) (test code = [facility], 1538) 98809: Electrical Discharge Machine Operator/Techni kathryn ID = [id number] for DOBB INS, TESS POCT-GLUCOSE [id number] 17:40:00 Test Item Value Reference Range Interpretation Comments POC-GLUCOSE METER 103 mg/dL 70-110 : TESTED A T [facility] 6720 (BEAKER) (test code = [facility], 1538) 92087: Electrical Discharge Machine Operator/Techni kathryn ID = [id number] for CARDOZA BLET, DOUG POCT-GLUCOSE [id number] 11:10:00 Test Item Value Reference Range Interpretation Comments POC-GLUCOSE METER 83 mg/dL 70-110 : TESTED A T [facility] 6720 (BEAKER) (test code = [facility], 1538) 11859: Electrical Discharge Machine Operator/Techni kathryn ID = [id number] for SUBL ET, DOUG COMPREHENSIVE METABOLIC [id number] 06:35:00 Test Item Value Reference Range Interpretation [...] S NOT APPLICABLE FOR DIALYSIS PATIEN TS. Electrical Discharge Machine Operator ID - PALAK [id number] 06:19:00 Test Item Value Reference Range Interpretation Comments MAGNESIUM (BEAKER) 1.7 mg/dL 1.6-2.6 Specimen slightly (test code = 627) hemolyzed Electrical Discharge Machine Operator ID - PALAK [id number] 06:19:00 Test Item Value Reference Range Interpretation Comments PHOSPHORUS (BEAKER) 2.3 mg/dL 2.3-4.7 Specimen slightly (test code = 604) hemolyzed Electrical Discharge Machine Operator ID - PALAK MCBC W/PLT COUNT & AUTO [id number] 05:31:00 Test Item Value Reference Range Interpretation [...] PERCENT (BEAKER) (test code = 2801) POCT-GLUCOSE [id number] 23:06:00 Test Item Value Reference Range Interpretation Comments POC-GLUCOSE METER 94 mg/dL 70-110 : TESTED A T [facility] 6720 (BEAKER) (test code = [facility] [place], 1538) 30818: Electrical Discharge Machine Operator/Techni kathryn ID = [id number] for SARMAD R, DENNY HEMODIALYSIS [id number] 18:40:14James Silverio RN 07/12/2020 6:43 PMTolerated and [...] (H) 07/12/2020 James VILLAFUERTE, RN II7S6- Adult Mhylxhir623 355 6760[facility] HospitalPOCT- GLU[facility]SE [id number] 18:10:00 Test Item Value Reference Range Interpretation Comments POC-GLUCOSE METER 103 mg/dL 70-110 : TESTED A T [facility] 6720 (BEAKER) (test code = [facility], 1538) 03000: Electrical Discharge Machine Operator/Techni kathryn ID = [id number] for James Enciso POCT-GLUCOSE [id number] 18:06:00 Test Item Value Reference Range Interpretation Comments POC-GLUCOSE METER 68 mg/dL 70-110 L : TESTED A T [facility] 6720 (BEAKER) (test code = [facility], 1538) 49541: Electrical Discharge Machine Operator/Techni kathryn ID = [id number] for James Dockery Protein electrophoresis, [id number] 10:45:00 Test Item Value Reference Range Interpretation [...] = 2660) HERBIE (test code = HERBIE) Electrical Discharge Machine Operator ID - MOOSE F Lab Interpretation (test Abnormal code = 13541-4) [facility] HospitalPROTEIN ELECTROPHORESIS, [id number] 10:45:00 Test Item Value Reference Range Interpretation [...] monoclonal band present. 2615) No significant changes. [id number] Jessy Camacho MD (BEAKER) (test code = (electronic signature) 2616) PROTEIN TOTAL SERUM, 15.0 gm/dL 6.0-8.3 H SPEP (BEAKER) (test code = 2660) Electrical Discharge Machine Operator ID - MOOSE FType and [id number] 07:56:00 Test Item Value Reference Range Interpretation Comments Ab Scrn (test code = 890-4) NEGATIVE PEG ABO Grouping (test code = 2588) B Rh Factor (test code = 2589) POS [facility] HospitalPOCT[facility]SE [id number] 07:41:00 Test Item Value Reference Range Interpretation Comments POC-GLUCOSE METER 77 mg/dL 70-110 : TESTED A T [facility] 6720 (BEAKER) (test code = [facility] [place], 1538) 25265: Electrical Discharge Machine Operator/Techni kathryn ID = [id number] for CORBIN LAINEZ [id number] 05:03:00 Test Item Value Reference Range Interpretation Comments PHOSPHORUS (BEAKER) (test code = 3.1 mg/dL 2.3-4.7 604) Electrical Discharge Machine Operator ID - [id number] 05:03:00 Test Item Value Reference Range Interpretation Comments MAGNESIUM (BEAKER) (test code = 1.8 mg/dL 1.6-2.6 627) Electrical Discharge Machine Operator ID - EDASICOMPREHENSIVE METABOLIC [id number] 05:03:00 Test Item Value Reference Range Interpretation [...] S NOT APPLICABLE FOR DIALYSIS PATIEN TS. Electrical Discharge Machine Operator ID - EDASICBC W/PLT COUNT & AUTO [id number] 04:47:00 Test Item Value Reference Range Interpretation [...] PERCENT (BEAKER) (test code = 2801) POCT-GLUCOSE [id number] 20:42:00 Test Item Value Reference Range Interpretation Comments POC-GLUCOSE METER 97 mg/dL 70-110 : TESTED A T [facility] 6720 (BEAKER) (test code = [facility], 1538) 18334: Electrical Discharge Machine Operator/Techni kathryn ID = [id number] for JAN FARIAS POCT-GLUCOSE [id number] 16:41:00 Test Item Value Reference Range Interpretation Comments POC-GLUCOSE METER 92 mg/dL 70-110 : TESTED A T [facility] 6720 (BEAKER) (test code = [facility], 1538) 90028: Electrical Discharge Machine Operator/Techni kathryn ID = [id number] for TEO PRUITT POCT-GLUCOSE [id number] 11:47:00 Test Item Value Reference Range Interpretation Comments POC-GLUCOSE METER 117 mg/dL 70-110 H : [facility] (test code = [facility], 1538) 87920: Electrical Discharge Machine Operator/Techni kathryn ID = [id number] for CASSIDY LOPEZ IMMUNOGLOBULIN G (IGG)2020-07-11 08:11:00 Test Item Value Reference Range Interpretation Comments IMMUNOGLOBULIN G (IGG) (BEAKER) 72776 mg/dL 540-1,822 H (test code = 427) Electrical Discharge Machine Operator ID - MOOSE FCOMPREHENSIVE METABOLIC [id number] 06:54:00 Test Item Value Reference Range Interpretation [...] S NOT APPLICABLE FOR DIALYSIS PATIEN TS. Electrical Discharge Machine Operator ID Shani MOOSE [id number] 06:52:00 Test Item Value Reference Range Interpretation Comments PHOSPHORUS (BEAKER) (test code = 2.4 mg/dL 2.3-4.7 604) Electrical Discharge Machine Operator ID Shani MOOSE [id number] 06:52:00 Test Item Value Reference Range Interpretation Comments MAGNESIUM (BEAKER) (test code = 1.8 mg/dL 1.6-2.6 627) Electrical Discharge Machine Operator ID Shani MOOSE FCBC W/PLT COUNT & AUTO [id number] 06:42:00 Test Item Value Reference Range Interpretation [...] PERCENT (BEAKER) (test code = 2801) POCT-GLUCOSE [id number] 05:47:00 Test Item Value Reference Range Interpretation Comments POC-GLUCOSE METER 130 mg/dL 70-110 H : TESTED Debbie Lewis [facility] 6720 (BEAKER) (test code = [facility] [place], 1538) 63363: Electrical Discharge Machine Operator/Techni kathryn ID = [id number] for JAN VIGIL POCT-GLUCOSE [id number] 23:28:00 Test Item Value Reference Range Interpretation Comments POC-GLUCOSE METER 125 mg/dL 70-110 H : TESTED A T [facility] 6720 (BEAKER) (test code = [facility], 1538) 35456: Electrical Discharge Machine Operator/Techni kathryn ID = [id number] for JAN VIGIL POCT-GLUCOSE [id number] 16:56:00 Test Item Value Reference Range Interpretation Comments POC-GLUCOSE METER 164 mg/dL 70-110 H : TESTED A T [facility] 6720 (BEAKER) (test code = [facility], 1538) 11219: Electrical Discharge Machine Operator/Techni kathryn ID = [id number] for IRASEMA CARDOZA POCT-GLUCOSE [id number] 12:02:00 Test Item Value Reference Range Interpretation Comments POC-GLUCOSE METER 138 mg/dL 70-110 H : TESTED A T [facility] 6720 (BEAKER) (test code [facility], = 1538) 92819: Electrical Discharge Machine Operator/Techni kathryn ID = [id number] for MEGAN SJETHRO COMPREHENSIVE METABOLIC [id number] 07:11:00 Test Item Value Reference Range Interpretation [...] S NOT APPLICABLE FOR DIALYSIS PATIEN TS. Electrical Discharge Machine Operator ID - [id number] 06:36:00 Test Item Value Reference Range Interpretation Comments PHOSPHORUS (BEAKER) (test code = 2.7 mg/dL 2.3-4.7 604) Electrical Discharge Machine Operator ID - [id number] 06:36:00 Test Item Value Reference Range Interpretation Comments MAGNESIUM (BEAKER) (test code = 1.7 mg/dL 1.6-2.6 627) Electrical Discharge Machine Operator ID - EDASICBC W/PLT COUNT & AUTO [id number] 06:34:00 Test Item Value Reference Range Interpretation [...] PERCENT (BEAKER) (test code = 2801) POCT-GLUCOSE [id number] 05:25:00 Test Item Value Reference Range Interpretation Comments POC-GLUCOSE METER 143 mg/dL 70-110 H : TESTED A T [facility] 6720 (BEAKER) (test code = [facility], [facility]) 25739: Electrical Discharge Machine Operator/Techni kathryn ID = [id number] for CH UA, HENRISON POCT-GLUCOSE [id number] 23:27:00 Test Item Value Reference Range Interpretation Comments POC-GLUCOSE METER 165 mg/dL 70-110 H : TESTED A T [facility] 6720 (BEAKER) (test code = [facility], 1538) 33550: Electrical Discharge Machine Operator/Techni kathryn ID = [id number] for CH UA, HENRISON POCT-GLUCOSE [id number] 17:17:00 Test Item Value Reference Range Interpretation Comments POC-GLUCOSE METER 121 mg/dL 70-110 H : TESTED A T [facility] 6720 (BEAKER) (test code = [facility], 1538) 25837: Electrical Discharge Machine Operator/Techni kathryn ID = [id number] for DU BRET ROBERSON COMPREHENSIVE METABOLIC [id number] 06:13:00 Test Item Value Reference Range Interpretation [...] S NOT APPLICABLE FOR DIALYSIS PATIEN TS. Electrical Discharge Machine Operator ID - PIAYA LPOCT-GLUCOSE [id number] 06:05:00 Test Item Value Reference Range Interpretation Comments POC-GLUCOSE METER 118 mg/dL 70-110 H : TESTED A T [facility] 6720 (BEAKER) (test code = [facility] [place], 1538) 01142: Electrical Discharge Machine Operator/Techni kathryn ID = [id number] for DO BBINS, TESS [id number] 05:42:00 Test Item Value Reference Range Interpretation Comments PHOSPHORUS (BEAKER) (test code = 5.2 mg/dL 2.3-4.7 H 604) Electrical Discharge Machine Operator ID Shani POWELL [id number] 05:42:00 Test Item Value Reference Range Interpretation Comments MAGNESIUM (BEAKER) (test code = 1.9 mg/dL 1.6-2.6 627) Electrical Discharge Machine Operator ID Shani POWELL LCBC W/PLT COUNT & AUTO [id number] 05:20:00 Test Item Value Reference Range Interpretation [...] PERCENT (BEAKER) (test code = 2801) POCT-GLUCOSE [id number] 22:07:00 Test Item Value Reference Range Interpretation Comments POC-GLUCOSE METER 132 mg/dL 70-110 H : TESTED A T [facility] 6720 (BEAKER) (test code = CARLO Lin [facility], 1538) 70707: Electrical Discharge Machine Operator/Techni kathryn ID = [id number] for DO TESS CRAMER Blood Culture - Routine (Left Venipuncture)2020-07-08 20:00:00 Test Item Value Reference Range Interpretation Comments Result (test code = No growth in 5 days 6463-4) [facility] [id number] 20:00:00 Test Item Value Reference Range Interpretation Comments CULTURE (BEAKER) (test No growth in 5 days code = 1095) BLOOD [id number] 20:00:00 Test Item Value Reference Range Interpretation Comments CULTURE (BEAKER) (test No growth in 5 days code = 1095) RAD, ABDOMEN/KUB, 1 VIEW [id number] 17:42:00Reason for exam:->cortrak verificationFINAL REPORT Abdomen x-ray [...] MDReport Verified Date/Time: 07/08/2020 17:42:18 Reading Location: [facility] C013 Consult Reading Room XR abdomen / [...] MDReport Verified Date/Time: 07/08/2020 17:42:18 Reading Location: [facility] C013 Consult [facility] [id number] 17:27:00 Test Item Value Reference Range Interpretation Comments POC-GLUCOSE METER 131 mg/dL 70-110 H : TESTED A T [facility] 6720 ([employer]) (test code = [facility] [employer] [facility], 1538) 54814: Electrical Discharge Machine Operator/Techni kathryn ID = [id number] for CARDOZA BLET, DOUG POCT-GLUCOSE [id number] 11:48:00 Test Item Value Reference Range Interpretation Comments POC-GLUCOSE METER 91 mg/dL 70-110 : TESTED A T [facility] 6720 ([employer]) (test [facility] = [facility] [employer] [facility], 1538) 97547: Electrical Discharge Machine Operator/Techni kathryn ID = [id number] for SUBL ET, DOUG MR, BRAIN, WITHOUT [id number] 10:39:00Unlisted Reason for Exam - Click Yes [...] MDReport Verified Date/Time: 07/08/2020 10:39:36 Reading Location: [address] Neuro Reading Room E lectronically signed by: YOANDY HANSON on 07/08/2020 10:39 AMMR brain without IV [id number] 10:39:00Interface, External Ris In - 07/08/2020 10:41 [...] MDReport Verified Date/Time: 07/08/2020 10:39:36 Reading Location: [address] Neuro [facility] [id number] 06:10:00 Test Item Value Reference Range Interpretation Comments POC-GLUCOSE METER 96 mg/dL 70-110 : TESTED A T [facility] 6720 (BEAKER) (test code = [facility] [place], 1538) 45289: Electrical Discharge Machine Operator/Techni kathryn ID = [id number] for SARMAD R, DENNY COMPREHENSIVE METABOLIC [id number] 05:50:00 Test Item Value Reference Range Interpretation [...] S NOT APPLICABLE FOR DIALYSIS PATIEN TS. Electrical Discharge Machine Operator ID - PALAK [id number] 05:45:00 Test Item Value Reference Range Interpretation Comments PHOSPHORUS (BEAKER) (test code = 5.5 mg/dL 2.3-4.7 H 604) Electrical Discharge Machine Operator ID - PALAK [id number] 05:45:00 Test Item Value Reference Range Interpretation Comments MAGNESIUM (BEAKER) (test code = 1.8 mg/dL 1.6-2.6 627) Electrical Discharge Machine Operator ID - PALAK MCBC W/PLT COUNT & AUTO [id number] 05:15:00 Test Item Value Reference Range Interpretation [...] IMMATURE GRANULOCYTES-RELATIVE 2 % 0-1 H PERCENT ([facility]) (test code = 2801) POCT-GLUCOSE [id number] 00:30:00 Test Item Value Reference Range Interpretation Comments POC-GLUCOSE METER 111 mg/dL 70-110 H : TESTED A T [facility] ([facility]) (test code = CARLO Lin [facility], 1538) 55491: Electrical Discharge Machine Operator/Techni kathryn ID = [id number] for EASTON SALEH POCT-GLUCOSE [id number] 18:32:00 Test Item Value Reference Range Interpretation Comments POC-GLUCOSE METER 121 mg/dL 70-110 H : TESTED A T [facility] 6720 ([facility]) (test code = CARLO Lin [facility], 1538) 11536: Electrical Discharge Machine Operator/Techni kathryn ID = [id number] for DU KAROL, BRET EEG W VID 2-12 HR CONTINUOUS MONITORING (VEEG)2020-07-07 15:19:00 day billingVideo EEG report [facility] DATE OF TEST: 07/06/2020 DATE OF REPORT: 07/06/2020 ACC: [id number] Start time: 8:02 AM Stop time: 5:48 PM ICD-10: R56.0 CPT: 36002 HISTORY: 74 y.o. female with PMH of [...] Attending EEG 2-12 HR Continuous Monitoring with [id number] 15:19:00Interface, External Ris In - 07/07/2020 3:19 PM CDTVideo EEG report [facility] DATE OF TEST: 07/06/2020 DATE OF REPORT: 07/06/2020 ACC: [id number] Start time: 8:02 AM Stop time: 5:48 PM ICD-10: R56.0 CPT: 13774 HISTORY: 74 y.o. female with PMH of [...] pattern. Aleyda Donahue MD Clinical Neurophysiology/Epilepsy Attending [facility] DiegoPOCT-GLU[facility]SE [id number] 11:58:00 Test Item Value Reference Range Interpretation Comments POC-GLUCOSE METER 85 mg/dL 70-110 : TESTED A T [facility] 6720 (DOM) (test code = [place] [place], 1538) 71672: Electrical Discharge Machine Operator/Techni kathryn ID = [id number] for JETHRO DIALLO [id number] 11:38:00 Test Item Value Reference Range Interpretation Comments Ammonia (test code = 34 18- 72 mol/L 00557-6) HERBIE (test code = HERBIE) Electrical Discharge Machine Operator ID - AAHAMID Lab Interpretation (test Normal code = 43024-4) [facility] Hospital[facility]MONIA2020-10-01 11:38:00 Test Item Value Reference Range Interpretation Comments AMMONIA (BEAKER) (test code = 348) 34 mol/L 18-72 Electrical Discharge Machine Operator ID - AAHAMIDPOCT-GLUCOSE [id number] 07:08:00 Test Item Value Reference Range Interpretation Comments POC-GLUCOSE METER 87 mg/dL 70-110 : TESTED A T [facility] 6720 (BEAKER) (test code = [facility] [place], 1538) 63667: Electrical Discharge Machine Operator/Techni kathryn ID = [id number] for DENNY SHETTY COMPREHENSIVE METABOLIC [id number] 06:19:00 Test Item Value Reference Range Interpretation [...] S NOT APPLICABLE FOR DIALYSIS PATIEN TS. Electrical Discharge Machine Operator ID - [id number] 06:13:00 Test Item Value Reference Range Interpretation Comments PHOSPHORUS (BEAKER) (test code = 4.5 mg/dL 2.3-4.7 604) Electrical Discharge Machine Operator ID - [id number] 06:13:00 Test Item Value Reference Range Interpretation Comments MAGNESIUM (BEAKER) (test code = 1.8 mg/dL 1.6-2.6 627) Electrical Discharge Machine Operator ID - EDASICBC W/PLT COUNT & AUTO [id number] 05:47:00 Test Item Value Reference Range Interpretation [...] PERCENT (BEAKER) (test code = 2801) POCT-GLUCOSE [id number] 00:47:00 Test Item Value Reference Range Interpretation Comments POC-GLUCOSE METER 87 mg/dL 70-110 : TESTED A T [facility] 6720 (BEAKER) (test code = [facility] [place], 1538) 95672: Electrical Discharge Machine Operator/Techni kathryn ID = [id number] for JAN FARIAS PROTEIN ELECTROPHORESIS, [id number] 19:20:00 Test Item Value Reference Range Interpretation [...] (BEAKER) (test code terminal gamma region. = 8187) Based on current electrophoretic scan, concentration is approximately 5.4 g/dL. Serum VERÓNICA ordered for further characterization. [id number]-[id number] Jessy Camacho MD 9 (DOM) (test (electronic signature) code = 2616) PROTEIN TOTAL 13.5 gm/dL 6.0-8.3 H SERUM, SPEP (DOM) (test code = 2660) Electrical Discharge Machine Operator ID - PIAYA LRAD, ABDOMEN/KUB, 1 VIEW [id number] 16:56:00Reason for exam:->Corpak placementFINAL REPORT TECHNIQUE: RAD, ABDOMEN/KUB, 1 VIEW AP INDICATION: Corpak placement COMPARISON: None. FINDINGS:Feeding tube is not visualized on the current exam. Bowel gas pattern i s nonobstructive. Degenerative changes noted in the lumbar spine with mild levoconvex curvature. Multiple phleboliths project over the pelvis.. IMPRESSION:Feeding tube is not visualized on the exam.. Signed: Jennifer Man MDRepnortheast regional medical center Verified Date/Time: 07/06/2020 16:56:17 Reading Location: [address] Reading Room POCT-GLUCOSE [id number] 12:21:00 Test Item Value Reference Range Interpretation Comments POC-GLUCOSE METER 103 mg/dL 70-110 : TESTED A T [facility] 6720 [facility] (test code [facility], = 1538) 56950: Electrical Discharge Machine Operator/Techni kathryn ID = [id number] for JETHRO DIALLO EEG W VID 12-26 HR CONTINUOUS MONITORING (VEEG)2020-07-06 11:53:00billing 07/05-07/06Video EEG report [facility] DATE OF TEST: 07/05/2020 DATE OF REPORT: 07/06/2020 ACC: [id number] Start time: 12:02 PM 07/05/2020 Stop time: 8:02 AM 07/06/2020 ICD-10: R56.0 CPT: 44034 HISTORY: 74 y.o. female with PMH of [...] Attending EEG 12-26 HR Continuous Monitoring with Xbzng0149-20-56 11:53:00Interface, External Ris In - 07/06/2020 11:53 AM CDTVideo EEG report [facility] DATE OF TEST: 07/05/2020DATE OF REPORT: 07/06/2020 ACC: [id number] Start time: 12:02 PM 07/05/2020 Stop time: 8:02 AM 07/06/2020 ICD-10: R56.0 CPT: 25365 HISTORY: 74 y.o. female with PMH of [...] pattern. Aleyda Donahue MD Clinical Neurophysiology/Epilepsy [facility] 11:19:00 Test Item Value Reference Range Interpretation Comments Prealbumin (test code = 25 mg/dL 1445 55895-8) HERBIE (test code = HERBIE) Electrical Discharge Machine Operator [facility] Lab Interpretation (test Normal code = 64568-9) [facility]-30 11:19:00 Test Item Value Reference Range Interpretation Comments PREALBUMIN (BEAKER) (test code = 25 mg/dL 45 586) Electrical Discharge Machine Operator [facility] UAgaerhxnhzlmw3632-95-64 11:01:00 Test Item Value Reference Range Interpretation Comments Triglycerides (test 173 mg/dL code = 2571-8) HERBIE (test code = HERBIE) TRIGLYCERIDE REFERENCE RANGELow Risk <150Borderline Risk 150-199High Risk 200-499Very High Risk >=500Operator [facility]LY[facility]ERIDES2020-09-30 11:01:00 Test Item Value Reference Range Interpretation Comments TRIGLYCERIDES (BEAKER) (test code = 173 mg/dL 540) TRIGLYCERIDE REFERENCE RANGELow Risk <150Borderline Risk 150-199High Risk 200-499Very High Risk>=500Operator [facility] FVitamin D, 25-Hydroxy 2020-07-06 07:23:00 Test Item Value Reference Range Interpretation Comments Vitamin D 25-Hydroxy 39.0 ng/mL 6.6-49.9 (test code = 2764) HERBIE (test code = HERBIE) Effective 07/17/2017: Reference Range ChangeNew: 6.6-49.9 ng/mL Previous: 13.0-47.8 ng/mL Recommended Vitamin D Target Range: 30.0-40.0 ng/mLOperator ID - CAROLINA F Lab Interpretation (test Normal code = 96903-1) [facility] HospitalVIT[facility]IN D, 06-[id number] 07:23:00 Test Item Value Reference Range Interpretation Comments VITAMIN D 25-OH (BEAKER) (test 39.0 ng/mL 6.6-49.9 code = 2764) Effective 07/17/2017: Reference Range ChangeNew: 6.6-49.9 ng/mL Previous: 13.0-47.8 ng/mLRecommended Vitamin D Target Range: 30.0-40.0 ng/mLOperator ID - MOOSE FCOMPREHENSIVE METABOLIC [id number] 06:58:00 Test Item Value Reference Range Interpretation [...] S NOT APPLICABLE FOR DIALYSIS PATIEN TS. Electrical Discharge Machine Operator ID - MOOSE GUVCTXAWZRZ4238-06-14 06:43:00 Test Item Value Reference Range Interpretation Comments PHOSPHORUS (BEAKER) (test code = 3.8 mg/dL 2.3-4.7 604) Electrical Discharge Machine Operator ID - MOSOE [id number] 06:43:00 Test Item Value Reference Range Interpretation Comments MAGNESIUM (BEAKER) (test code = 1.8 mg/dL 1.6-2.6 627) Electrical Discharge Machine Operator ID - MOOSE FPTH, [id number] 06:32:00 Test Item Value Reference Range Interpretation Comments PTH (test code = 2731-8) 591.5 pg/mL 8.5-72.5 H HERBIE (test code = HERBIE) Electrical Discharge Machine Operator ID - MOOSE F Lab Interpretation (test Abnormal code = 00347-8) [facility] HospitalPTH, [id number] 06:32:00 Test Item Value Reference Range Interpretation Comments PARATHYROID HORMONE INTACT 591.5 pg/mL 8.5-72.5 H (BEAKER) (test code = 577) Electrical Discharge Machine Operator ID - MOOSE FCBC W/PLT COUNT & AUTO [id number] 06:21:00 Test Item Value Reference Range Interpretation [...] PERCENT (BEAKER) (test code = 2801) POCT-GLUCOSE [id number] 05:58:00 Test Item Value Reference Range Interpretation Comments POC-GLUCOSE METER 95 mg/dL 70-110 : TESTED A T [facility] 6720 ([employer]) (test code = [facility], 1538) 43083: Electrical Discharge Machine Operator/Techni kathryn ID = [id number] for MENDOZA SUSANA MEYER [place] POCT-GLUCOSE [id number] 22:13:00 Test Item Value Reference Range Interpretation Comments POC-GLUCOSE METER 81 mg/dL 70-110 : TESTED A T [facility] 6720 ([employer]) (test code = [facility], 1538) 71927: Electrical Discharge Machine Operator/Techni kathryn ID = [id number] for DOBB INS, TESS EEG W VID 12-26 HR CONTINUOUS MONITORING (VEEG)2020-07-05 15:49:00Reason for exam:->szELECTROENCEPHALOGRAM CONTINUOUS EEG VIDEO BEDSIDE MONITORING STUDY PATIENT NAME: PETROS VELÁSQUEZ START TIME: 11:42 AM, 2019END TIME: 12:02 PM, 2019 REPORT DATE: 2019 CPT: 86938 ICD10: R56.9 PATIENT HX: Patient with encephalopathy [...] MD EEG 12-26 HR Continuous Monitoring with Hfsbm1608-21-73 15:49:00Interface, External Ris In - 07/05/2020 3:49 PM CDTELECTROENCEPHALOGRAM CONTINUOUS EEG VIDEO BEDSIDE MONITORING STUDY PATIENT NAME: PETROS VELÁSQUEZ TIME: 11:42 AM, 2019 END TIME: 12:02 PM, REPORT DATE: 2019 CPT: 00918 ICD10: R56.9 PATIENT HX: Patient with encephalopathy [...] electrographic seizures were recorded. Joanna Anthony [facility] [id number] 10:47:00 Test Item Value Reference Range Interpretation Comments POC-GLUCOSE METER 125 mg/dL 70-110 H : TESTED A T [facility] 67[facility] (BEAKER) ([facility], = 1538) 13079: Electrical Discharge Machine Operator/Techni kathryn ID = [id number] for AMAN FREDERICK HEPATITIS B SURFACE [id number] 10:38:00 Test Item Value Reference Range Interpretation Comments HEPATITIS B SURFACE ANTIGEN (2) Nonreactive Nonreactive (BEAKER) (test code = 2585) Specimen is considered negative for HBsAg.IMMUNOGLOBULIN G (IGG)2020-07-05 06:55:00 Test Item Value Reference Range Interpretation Comments IMMUNOGLOBULIN G (IGG) (BEAKER) (test > mg/dL 540-1,822 H code = 427) Electrical Discharge Machine Operator ID Shani POWELL LImmunoglobulin M (IgM)2020-07-05 06:52:00 Test Item Value Reference Range Interpretation Comments IgM (test code = 2464-6) 20 mg/dL 22-293 L HERBIE (test code = HERBIE) Electrical Discharge Machine Operator ID - SHERRY L Lab Interpretation (test Abnormal code = 17832-9) [facility] HospitalIMMUNOGLOBULIN M (IGM)2020-07-05 06:52:00 Test Item Value Reference Range Interpretation Comments IMMUNOGLOBULIN M (IGM) (BEAKER) 20 mg/dL 22-293 L (test code = 638) Electrical Discharge Machine Operator ID Shani POWELL LImmunoglobulin A (IgA)2020-07-05 06:43:00 Test Item Value Reference Range Interpretation Comments IgA (test code = 2458-8) 29 mg/dL 63-484 L HEBRIE (test code = HERBIE) Electrical Discharge Machine Operator ID - SHERRY L Lab Interpretation (test Abnormal code = 88533-2) [facility] HospitalIMMUNOGLOBULIN A (IGA)2020-07-05 06:43:00 Test Item Value Reference Range Interpretation Comments IMMUNOGLOBULIN A (IGA) (BEAKER) 29 mg/dL 63-484 L (test code = 639) Electrical Discharge Machine Operator ID Shani POWELL LPOCT-GLUCOSE [id number] 06:28:00 Test Item Value Reference Range Interpretation Comments POC-GLUCOSE METER 102 mg/dL 70-110 : TESTED A T [facility] 6720 (BEAKER) (test code = CARLO Lin [place], 1538) [address]: Electrical Discharge Machine Operator/Techni kathryn ID = [id number] for SUSANA JONES COMPREHENSIVE METABOLIC [id number] 06:00:00 Test Item Value Reference Range Interpretation [...] S NOT APPLICABLE FOR DIALYSIS PATIEN TS. Electrical Discharge Machine Operator ID - PIAYA [id number] 05:59:00 Test Item Value Reference Range Interpretation Comments PHOSPHORUS (BEAKER) (test code = 5.1 mg/dL 2.3-4.7 H 604) Electrical Discharge Machine Operator ID - SHERRY [id number] 05:59:00 Test Item Value Reference Range Interpretation Comments MAGNESIUM (BEAKER) (test code = 2.0 mg/dL 1.6-2.6 627) Electrical Discharge Machine Operator ID Shani POWELL LCBC W/PLT COUNT & AUTO [id number] 05:19:00 Test Item Value Reference Range Interpretation [...] PERCENT (BEAKER) (test code = 2801) POCT-GLUCOSE [id number] 00:48:00 Test Item Value Reference Range Interpretation Comments POC-GLUCOSE METER 78 mg/dL 70-110 : TESTED A T [facility] 6720 (BEAKER) (test code = CARLO [place], 1538) 699[address]: Electrical Discharge Machine Operator/Techni kathryn ID = [id number] for KELLY MEYER, March Vancomycin level, [id number] 18:24:00 Test Item Value Reference Range Interpretation Comments Vancomycin Rm (test 15.9 ug/mL code = 47706-0) HERBIE (test code = Reference Range: No HERBIE) NormalsOperator ID - DB [facility] HospitalVANCOMYCIN LEVEL, [id number] 18:24:00 Test Item Value Reference Range Interpretation Comments VANCOMYCIN RANDOM (BEAKER) (test 15.9 ug/mL code = 523) Reference Range: No NormalsOperator ID - DBSARS-COV2/RT-PCR ([facility])2020-07-04 14:49:00 Test Item Value Reference Range Interpretation Comments SARS-COV2/RT-PCR (test Negative Not Detected, Negative, code = 3239246) See external report for linked test SARS-COV-2 PERFORMING LAB [facility] CASSANDRA (test code = 2176113) Negative result for this test determines that [...] 564(g) of the Act.Fact Sheet for Healthcare Providers:https://www.[employer]/sites/default/files/product/documents/Fact_Shee f_TT_Smcntfdsi_Msaa_ANZK-ZgY-4.pdfFact Sheet for Healthcare Patients:https://www.[employer]/sites/default/files/product/ documents/Bstj_Koqdt_Dywxtzfh_Arcs_AHSI-GuQ-4.pdfPerforming Laboratory:[facility], [place] [address]Tammbj doppler legs bhwqxdbzu8923-88-72 08:37:48Ejection [facility] ECHO HEARTLAB MKCKESSON CPACSRight Impression1. There is [...] Lower Extremities DVT Study Demographics Patient Name [facility] Date of Study 07/04/2020 SAMANTHA Age 74 Visit Number [id number] Gender Female Accession Number [id number] Date of 1945 Referring Ari Amaya Room Number 734 Physician MD [employer] Process Consultant JeanR. Snyder Interpreting Patience Ybarra MD Physician [...] in cm/s ; Diameters are measured in [place] Kyflcjxw2670-33-07 07:20:00 Test Item Value Reference Range Interpretation Comments Ferritin (test code = 2365.63 ng/mL 5-275 H 2276-4) HERBIE (test code = HERBIE) Electrical Discharge Machine Operator ID - PIAYA L Lab Interpretation (test Abnormal code = 65066-5) [facility] HospitalFERRITIN2020-09-28 07:20:00 Test Item Value Reference Range Interpretation Comments FERRITIN (BEAKER) (test code = 2365.63 ng/mL 5.00-275.00 H 361) Electrical Discharge Machine Operator JEANETTE POWELL [id number] 07:19:00 Test Item Value Reference Range Interpretation Comments T4, Total (test code = 5.1 ug/dL 4.9-11.7 3026-2) HERBIE (test code = HERBIE) Electrical Discharge Machine Operator ID Shani POWELL L Lab Interpretation (test Normal code = 04296-5) [facility] HospitalT42020-09-28 07:19:00 Test Item Value Reference Range Interpretation Comments T4 TOTAL (BEAKER) (test code = 895) 5.1 ug/dL 4.9-11.7 Electrical Discharge Machine Operator JEANETTE POWELL LCOMPREHENSIVE METABOLIC [id number] 06:30:00 Test Item Value Reference Range Interpretation [...] S NOT APPLICABLE FOR DIALYSIS PATIEN TS. Electrical Discharge Machine Operator ID - SHERRY [id number] 06:24:00 Test Item Value Reference Range Interpretation Comments PHOSPHORUS (BEAKER) (test code = 3.3 mg/dL 2.3-4.7 604) Electrical Discharge Machine Operator ID - SHERRY [id number] 06:24:00 Test Item Value Reference Range Interpretation Comments MAGNESIUM (BEAKER) (test code = 1.8 mg/dL 1.6-2.6 627) Electrical Discharge Machine Operator ID - SHERRY LCBC W/PLT COUNT & AUTO [id number] 05:51:00 Test Item Value Reference Range Interpretation [...] PERCENT (BEAKER) (test code = 2801) Troponin [id number] 05:43:00 Test Item Value Reference Range Interpretation Comments Troponin I (test code = 0.08 ng/mL 0-0.03 H 73576-1) HERBIE (test code = HERBIE) Troponin I [...] L Lab Interpretation (test Abnormal code = 18784-0) [facility] HospitalTROPONIN [id number] 05:43:00 Test Item Value Reference Range Interpretation [...] failure, acidosis, acute neurological disease, and persistent tachyarrhythmia.Electrical Discharge Machine Operator ID - PIAYA LRespiratory Panel [id number] 03:18:00 Test Item Value Reference Range Interpretation Comments Human Metapneumovirus Not detected Not detected, (test code = 33242-3) Equivocal Rhinovirus (test code = Not detected Not detected, 27872-3) Equivocal INFLUENZA A (NO Not detected Not detected, SUBTYPE) (test code = Equivocal 71771-1) Influenza A subtype H1 (test code = 88260-1) Influenza A Subtype H3 (test code = 69164-3) Influenza A Subtype H1-2009 (test code = 53422-7) Influenza B (test code Not detected Not detected, = 27783-0) Equivocal Respiratory Syncytial Not detected Not detected, Virus (test code = Equivocal 58524-4) Parainfluenza Virus 1 Not detected Not detected, (test code = 55153-9) Equivocal Parainfluenza Virus 2 Not detected Not detected, (test code = 74237-5) Equivocal Parainfluenza virus 3 Not detected Not detected, (test code = 22406-0) Equivocal Parainfluenza Virus 4 Not detected Not detected, (test code = 73778-0) Equivocal Adenovirus (test code = Not detected Not detected, 12085-3) Equivocal Coronavirus 229E (test Not detected Not detected, code = 74436-1) Equivocal Coronavirus HKU1 (test Not detected Not detected, code = 78439-5) Equivocal Coronavirus NL63 (test Not detected Not detected, code = 69564-6) Equivocal Coronavirus OC43 (test Not detected Not detected, code = 01567-9) Equivocal Bordetella Pertussis Not detected Not detected, (test code = 70203-8) Equivocal Chlamydophila Not detected Not detected, Pneumoniae (test code = Equivocal 79319-9) Mycoplasma Pneumoniae Not detected Not detected, (test code = 88134-9) Equivocal HERBIE (test code = HERBIE) Other viruses and bacteria not targeted by this PCR panel cannot be excluded; therefore clinical correlation and follow up of serology, culture results, and other molecular studies is required. The results are not intended to be used as the sole means for clinical diagnosis or patient management decisions. This sample was tested at the [facility] using the [employer] FilmArray Respiratory Panel. It is FDA cleared and has been verified and approved by the [facility] for clinical use on nasopharyngeal swab specimens. The performance of the FilmArray RP has not been established in individuals who received influenza vaccine. Recent administration of a nasal influenza vaccine may cause false positive results for Influenza A and/orInfluenza B. [facility] HospitalRESPIRATORY PANEL [id number] 03:18:00 Test Item Value Reference Range Interpretation [...] decisions. This sample was tested at the [facility] using the CardiocoreArray Respiratory Panel. It is FDA cleared and has been verified and approved by the [facility] for clinical use on nasopharyngeal swab specimens.The performance of the FilmArrayRP has not been established in individuals who received influenza vaccine. Recent administration ofa nasal influenza vaccine may cause false positive results for Influenza A and/orInfluenza B.Urinalysis w/Microscopic + Reflex to Culture 2020-07-04 01:41:00 Test Item Value Reference Range Interpretation Comments Color, UA (test code = Light [place] 5778-6) Clarity, UA (test code = Cloudy 5767-9) Specific [place], UA (test 1.010 1.001-1.035 code = 5811-5) pH, UA (test code = 7.0 5.0-8.0 5803-2) Protein, UA (test code = 200 mg/dL Negative A 86908-4) Glucose, UA (test code = Negative Negative 365) Ketones, UA (test code = Negative Negative 2514-8) Bilirubin, UA (test code = Negative Negative 97904-2) Blood, UA (test code = Moderate Negative A 93357-8) Nitrite, UA (test code = Negative Negative 5802-4) Leukocytes, UA (test code Large Negative A = 5799-2) Urobilinogen, UA (test 0.2 mg/dL 0.2-1 code = 11071-3) RBC, UA (test code = 45 /HPF 92579-3) WBC, UA (test code = 3609 /HPF 5821-4) Squam Epithel, UA (test 21 /HPF code = 01720-8) Specimen Source (test code = 2795) HERBIE (test code = HERBIE) Electrical Discharge Machine Operator ID - tech Lab Interpretation (test Abnormal code = 69935-9) [facility] HospitalURINALYSIS W/ REFLEX URINE [id number] 01:41:00 Test Item Value Reference Range Interpretation Comments COLOR (BEAKER) (test code = 470) Light [place] CLARITY (BEAKER) (test code = Cloudy 469) [...] = 516) SOURCE(BEAKER) (test code = 2795) Electrical Discharge Machine Operator ID - techRapid Influenza A&B [id number] 00:43:00 Test Item Value Reference Range Interpretation Comments Rapid Influenza A Antigen Negative Negative, Inconclusive (test code = 76388-4) Rapid influenza B Antigen Negative Negative, Inconclusive (test code = 27173-3) Lab Interpretation (test code Normal = 25558-9) [facility] HospitalRAPI INFLUENZA A&B [id number] 00:43:00 Test Item Value Reference Range Interpretation Comments RAPID INFLUENZA A AG (BEAKER) Negative Negative, Inconclusive (test code = 1622) RAPID INFLUENZA B AG (BEAKER) Negative Negative, Inconclusive (test code = 1623) [id number] 23:43:00 Test Item Value Reference Range Interpretation Comments TSH (test code = 1.025 0.350- 4.940 uIU/mL 28722-1) HERBIE (test code = HERBIE) Electrical Discharge Machine Operator ID - SHERRY L Lab Interpretation (test Normal code = 90834-0) [facility] HospitalTSH2020-09-27 23:43:00 Test Item Value Reference Range Interpretation Comments THYROID STIMULATING HORMONE 1.025 uIU/mL 0.350-4.940 (BEAKER) (test code = 772) Electrical Discharge Machine Operator ID Shani AHUMADAN [id number] 23:28:00 Test Item Value Reference Range Interpretation [...] failure, acidosis, acute neurological disease, and persistent tachyarrhythmia.Electrical Discharge Machine Operator ID Shani POWELL LC-Reactive Protein 2020-07-03 23:22:00 Test Item Value Reference Range Interpretation Comments CRP (test code = 676) 0.61 mg/dL 0-0.5 H HERBIE (test code = HERBIE) Electrical Discharge Machine Operator ID Shani POWELL L Lab Interpretation (test Abnormal code = 39547-8) [facility] HospitalIron, TIBC, % sat. (without ferritin)2020-07-03 23:22:00 Test Item Value Reference Range Interpretation Comments Iron (test code = 2498-4) 93.0 ug/dL 40-160 TIBC (test code = 2500-7) 143 ug/dL 250-450 L Iron % Saturation (test 65 % 20-55 H code = 2502-3) HERBIE (test code = HERBIE) Electrical Discharge Machine Operator ID Shani POWELL L Lab Interpretation (test Abnormal code = 26094-9) [facility] HospitalMAGNESIUM2020-09-27 23:22:00 Test Item Value Reference Range Interpretation Comments MAGNESIUM (BEAKER) (test code = 1.8 mg/dL 1.6-2.6 627) Electrical Discharge Machine Operator ID Shani POWELL LC-REACTIVE [id number] 23:22:00 Test Item Value Reference Range Interpretation Comments C-REACTIVE PROTEIN (BEAKER) (test 0.61 mg/dL 0.00-0.50 H code = 676) Electrical Discharge Machine Operator ID Shani POWELL LCOMPREHENSIVE METABOLIC [id number] 23:22:00 Test Item Value Reference Range Interpretation [...] S NOT APPLICABLE FOR DIALYSIS PATIEN TS. Electrical Discharge Machine Operator ID - SHERRY [place], TIBC, % SAT. (WITHOUT FERRITIN)2020-07-03 23:22:00 Test Item Value Reference Range Interpretation Comments IRON (BEAKER) (test code = 547) 93.0 ug/dL 40.0-160.0 TOTAL IRON BINDING CAPACITY 143 ug/dL 250-450 L (BEAKER) (test code = 769) IRON % SATURATION (2) (BEAKER) 65 % 20-55 H (test code = 6041) Electrical Discharge Machine Operator JEANETTE POWELL TN-[id number] 23:19:00 Test Item Value Reference Range Interpretation Comments D-Dimer, Quant (test code 7.31 <0.50 MG/L FEU H = 71722-4) HERBIE (test code = HERBIE) Intended Use: [...] range. Lab Interpretation (test Abnormal code = 31184-6) [facility] HospitalD-[id number] 23:19:00 Test Item Value Reference Range Interpretation [...] exclusion of thrombosis is within 95-100% range. [id number] 23:10:00 Test Item Value Reference Range Interpretation Comments Fibrinogen (test code = 3255-7) 202 mg/dl 225-434 L Lab Interpretation (test code = Abnormal 73427-3) [facility] HospitalFIBRINOGEN2020-09-27 23:10:00 Test Item Value Reference Range Interpretation Comments FIBRINOGEN LEVEL (BEAKER) (test 202 mg/dl 225-434 L code = 658) CBC W/PLT COUNT & AUTO [id number] 22:54:00 Test Item Value Reference Range Interpretation [...] PERCENT (BEAKER) (test code = 2801) Uric [id number] 22:28:00 Test Item Value Reference Range Interpretation Comments Uric Acid (test code = 7.8 mg/dL 2.6-7.2 H 3084-1) HERBIE (test code = HERBIE) Electrical Discharge Machine Operator ID - DB Lab Interpretation (test Abnormal code = 31136-7) [facility] HospitalURIC [id number] 22:28:00 Test Item Value Reference Range Interpretation Comments URIC ACID (BEAKER) (test code = 7.8 mg/dL 2.6-7.2 H 773) Electrical Discharge Machine Operator ID - DBURINALYSIS W/ REFLEX URINE [id number] 21:01:00 Test Item Value Reference Range Interpretation [...] /LPF 514) SOURCE(BEAKER) (test code = 2795) Electrical Discharge Machine Operator ID - [auto]Electrical Discharge Machine Operator ID - techTROPONIN [id number] 20:47:00 Test Item Value Reference Range Interpretation [...] failure, acidosis, acute neurological disease, and persistent tachyarrhythmia.Electrical Discharge Machine Operator ID - DBB-type Natriuretic Factor (BNP)2020-07-03 20:44:00 Test Item Value Reference Range Interpretation Comments BNP (test code = 88574-6) 682 pg/mL 0-100 H HERBIE (test code = HERBIE) Electrical Discharge Machine Operator ID - DB Lab Interpretation (test Abnormal code = 00750-5) [facility] HospitalB-TYPE NATRIURETIC FACTOR (BNP)2020-07-03 20:44:00 Test Item Value Reference Range Interpretation Comments B-TYPE NATRIURETIC PEPTIDE (BEAKER) 682 pg/mL 0-100 H (test code = 700) Electrical Discharge Machine Operator ID - DBCOMPREHENSIVE METABOLIC [id number] 20:43:00 Test Item Value Reference Range Interpretation [...] S NOT APPLICABLE FOR DIALYSIS PATIEN TS. Electrical Discharge Machine Operator ID - DBLactic acid, jxlspp8042-53-16 19:17:00 Test Item Value Reference Range Interpretation Comments Lactate, Venous (test 1.35 mmol/L 0.5-2.2 Specim en code = 2872) moderately hemolyzed HERBIE (test code = HERBIE) Electrical Discharge Machine Operator ID - AAHAMID Lab Interpretation Normal (test code = 88189-6) [facility] HospitalLACTIC ACID, [id number] 19:17:00 Test Item Value Reference Range Interpretation Comments LACTATE BLOOD VENOUS 1.35 mmol/L 0.50-2.20 Specime n moderately (2) (BEAKER) (test hemolyzed code = 2872) Electrical Discharge Machine Operator ID - AAHAMIDPT/PLOC7857-80-72 19:07:00 Test Item Value Reference Range Interpretation [...] mechanical heart valves.CBC W/PLT COUNT & AUTO [id number] 19:00:00 Test Item Value Reference Range Interpretation [...] (BEAKER) (test code = 2801) Blood gas, [id number] 18:50:00 Test Item Value Reference Range Interpretation Comments pH, Alli (test code = 2746-6) 7.33 7.32-7.42 pCO2, Alli (test code = 755) 45 41- 51 mmHg pO2, Alli (test code = 0065-2) 37 25- 40 mmHg O2 Sat, Alli (test code = 2711-0) 65.8 % 40-70 HCO3, Alli (test code = 21612-3) 24 mmol/L 21-29 Base Excess, Alli (test code = -2.2 mmol/L -2-3 L 1927-3) Patient Temperature (test code = 37.0 C 8310-5) FIO2 (test code = 1819) 21 % Lab Interpretation (test code = Abnormal 98603-8) [facility] HospitalBLOOD GAS, [id number] 18:50:00 Test Item Value Reference Range Interpretation [...] = 1819) 21.0 % CT, BRAIN, WITHOUT [id number] 18:20:00Reason for exam:- >HYPOTENSIONWhat is the patient's [...] Date/Time: 07/03/2020 18:20:13 CT brain without IV [id number] 18:20:00Interface, External Ris In - 07/03/2020 6:23 [...] Signed: Kb Almendarez Verified Date/Time: 07/03/2020 18:20:13 [facility], NON [id number] 18:09:00Reason for exam:->HYPOTENSIONShould this be performed at [...] MDReport Verified Date/Time: 07/03/2020 18:09:32 Reading Location: [address] Transitional Reading Room XR chest 1 view portable / [id number] 18:09:00Interface, External Ris In - 07/03/2020 6:11 [...] Ashleyort Verified Date/Time: 07/03/2020 18:09:32 Reading Location: [facility] Transitional Reading Room [facility] SARS-COV2/RT-PCR ([facility])2020-05-12 10:19:00 Test Item Value Reference Range Interpretation Comments SARS-COV2/RT-PCR (test Negative Not Detected, Negative, code = 5526497) See external report for linked test SARS-COV-2 PERFORMING LAB [facility] (test code = 6999183) Negative result for this test determines that [...] 564(g) of the Act.Fact Sheet for Healthcare Providers:https://www.Here@ Networksidel.com/sites/default/files/product/documents/Fact_Shee p_IF_Ipguwsmdj_Zigl_DKHW-OtE-6.pdfFact Sheet for Healthcare Patients:https://www.ZimpleMoney.com/sites/default/files/product/ documents/Gyvd_Tralb_Yvuvljbc_Nrui_MKNC-HaV-4.pdfPerforming Laboratory:[facility] [place] [address]
[2020-08-24 22:09] LABS: Absolute Lymphocytes (CBC) 3.3 K/uL (0.7-4.9); Hematocrit 24.2 % (36.0-45.0); Lymphocytes % 33.8 % (15.3-44.8); MPV 7.7 fL (7.6-11.3); RBC Red Blood Cell Count 2.78 M/uL (3.86-4.86)
[2020-08-24 23:08] LABS: Magnesium 2.4 mg/dL (1.8-2.4); Potassium 3.2 mmol/L (3.5-5.1)
--- NOTE | 2020-08-24 23:51 | ER ---
Nurse's Notes [facility] Name: Liat Velazquez Age: 74 yrs Sex: Female : 1945 Arrival Date: 08/24/2020 Time: 20:59 Bed 14 Private MD: Diagnosis: Other specified abnormal findings of blood chemistry-history of hyponatremia Presentation: 08/24 21:06 Chief complaint: Patient's son or daughter states: had labs drawn at HD yesterday and sv they were told today that her Sodium level was 119. She was here last week for the same thing and was given IVF and sent home. Coronavirus screen: Client denies travel out of the [place] in the last 14 days. At this time, the client does not indicate any symptoms associated with coronavirus-19. Ebola Screen: No symptoms or risks identified at this time. Risk Assessment: Do you want to hurt yourself or someone else? Patient reports no desire to harm self or others. Onset of symptoms was August 24, 2020. 21:06 Method Of Arrival: Wheelchair sv 21:06 Acuity: REY 3 sv 21:13 Initial Sepsis Screen: Does the patient meet any 2 criteria? No. Patient's initial jd3 sepsis screen is negative. Does the patient have a suspected source of infection? No. Patient's initial sepsis screen is negative. Triage Assessment: 21:08 General: Appears in no apparent distress. comfortable, Behavior is calm, cooperative, sv appropriate for age. Pain: Denies pain. Neuro: Level of Consciousness is awake, alert, obeys commands, Oriented to person, place, time, situation. Respiratory: Respiratory effort is even, unlabored. Historical: - Allergies: 21:08 No Known Allergies; sv - PMHx: 21:08 Dialysis; TThS; Hypertension; kidney problems; multiple myeloma; sv - Immunization history:: Adult Immunizations up to date. - Social history:: Smoking status: Patient denies any tobacco usage or history of. Screenin:12 Abuse screen: Denies threats or abuse. Nutritional screening: No deficits noted. jd3 Tuberculosis screening: No symptoms or risk factors identified. Fall Risk Ambulatory Aid- Crutches/Cane/Walker (15 pts). Gait- Weak (10 pts.). Mental Status- Oriented to own ability (0 pts). Total Jeter Fall Scale indicates Low Risk Score (25-44 pts). Fall prevention measures have been instituted. Side Rails Up X 2 Placed close to Nursing Station Frequent Obs/Assesments occuring Family Present and informed to notify staff if they need to leave bedside. Assessment: 21:11 General: Appears in no apparent distress. comfortable, Behavior is calm, cooperative, jd3 appropriate for age. Pain: Denies pain. Neuro: Level of Consciousness is awake, alert, obeys commands, Oriented to person, place, time, situation, Moves all extremities. Full function Speech is normal, Facial symmetry appears normal, Pupils are PERRLA, Intact. Cardiovascular: Denies chest pain, Capillary refill < 3 seconds Patient's skin is warm and dry. Respiratory: Airway is patent Respiratory effort is even, unlabored, Respiratory pattern is regular, symmetrical, Denies cough, shortness of breath. GI: No signs and/or symptoms were reported involving the gastrointestinal system. Patient currently denies constipation, diarrhea, nausea, pain, vomiting. : No signs and/or symptoms were reported regarding the genitourinary system. EENT: No signs and/or symptoms were reported regarding the EENT system. Derm: Skin is intact, Skin is dry, Skin is normal, Skin temperature is warm. Musculoskeletal: Circulation, motion, and sensation intact. Range of motion: intact in all extremities. 22:20 Reassessment: Patient appears in no apparent distress at this time. No changes from jd3 previously documented assessment. Patient and/or family updated on plan of care and expected duration. Pain level reassessed. Patient is alert, oriented x 3, equal unlabored respirations, skin warm/dry/pink. Patient denies pain at this time. 23:38 Reassessment: Patient appears in no apparent distress at this time. No changes from jd3 previously documented assessment. Patient and/or family updated on plan of care and expected duration. Pain level reassessed. Patient is alert, oriented x 3, equal unlabored respirations, skin warm/dry/pink. Patient denies pain at this time. Vital Signs: 21:10 BP 121 / 68; Pulse 95; Resp 16 S; Temp 97.9(TE); Pulse Ox 100% on R/A; Weight 54.43 kg jd3 (R); Height 5 ft. 2 in. (157.48 cm) (R); Pain 0/10; 23:38 BP 119 / 81; Pulse 92; Resp 17 S; Pulse Ox 100% on R/A; jd3 21:10 Body Mass Index 21.95 (54.43 kg, 157.48 cm) jd3 ED Course: 20:59 Patient arrived in ED. cl3 21:05 Kd Rogel PA is PHCP. cp 21:07 Triage completed. sv 21:08 Arm band placed on. sv 21:10 Sean Ibarra RN is Primary Nurse. jd3 21:13 Patient has correct armband on for positive identification. Bed in low position. Call j light in reach. Side rails up X 1. Adult w/ patient. Pulse ox on. NIBP on. 21:30 Ayan Oneill MD is Attending Physician. cp 21:53 Inserted saline lock: 20 gauge in right forearm, using aseptic technique. Blood dh4 collected. 08/25 00:02 No provider procedures requiring assistance completed. IV discontinued, intact, jd3 bleeding controlled, No redness/swelling at site. Pressure dressing applied. Administered Medications: No medications were administered Outcome: 08/24 23:51 Discharge ordered by . cp 08/25 00:03 Discharged to home via wheelchair, with family. jd3 Condition: stable Discharge instructions given to patient, family, Instructed on discharge instructions, follow up and referral plans. Demonstrated understanding of instructions, follow-up care. 00:03 Patient left the ED. jd3 Signatures: Celeste Garcia RN RN Kd Rogel PA PA cp Sean Ibarra RN RN jd3 Lewis, Charde cl3 Ivan Hernandez 4
--- NOTE | 2020-08-24 23:51 | EDPHYS ---
Physician Documentation [facility] Name: Liat Velazquez Age: 74 yrs Sex: Female : 1945 Arrival Date: 08/24/2020 Time: 20:59 Bed 14 Private MD: ED Physician Ayan Oneill HPI: 08/24 21:32 This 74 yrs old Black Female presents to ER via Wheelchair with complaints of Sodium cp Low. 21:32 Family of patient report patient was contacted today to go to ED for evaluation of low cp serum sodium. Patient is a dialysis patient and had blood drawn yesterday. Family of patient reports she completed dialysis yesterday. No complaints expressed by patient. Family of patient report they were told patient's serum sodium level was 119. Historical: - Allergies: 21:08 No Known Allergies; sv - PMHx: 21:08 Dialysis; TThS; Hypertension; kidney problems; multiple myeloma; sv - Immunization history:: Adult Immunizations up to date. - Social history:: Smoking status: Patient denies any tobacco usage or history of. ROS: 21:35 Constitutional: Negative for body aches, chills, fever, poor PO intake. cp 21:35 Eyes: Negative for injury, pain, redness, and discharge. cp 21:35 Cardiovascular: Negative for chest pain, edema, palpitations. 21:35 Respiratory: Negative for cough, shortness of breath, wheezing. 21:35 Abdomen/GI: Negative for abdominal pain, nausea, vomiting, and diarrhea. 21:35 Neuro: Negative for altered mental status, dizziness, headache, seizure activity, syncope, weakness. 21:35 All other systems are negative. Exam: 21:40 Constitutional: The patient appears in no acute distress, alert, awake, comfortable, cp non-diaphoretic, non-toxic, well developed, well nourished. 21:40 Head/Face: Normocephalic, atraumatic. cp 21:40 Eyes: Periorbital structures: appear normal, Conjunctiva: normal, no exudate, no injection, Sclera: no appreciated abnormality, Lids and lashes: appear normal, bilaterally. 21:40 ENT: External ear(s): are unremarkable, Nose: is normal, Mouth: Lips: moist, Posterior pharynx: Airway: no evidence of obstruction, patent. 21:40 Chest/axilla: Inspection: normal. 21:40 Cardiovascular: Rate: normal, Rhythm: regular. 21:40 Respiratory: the patient does not display signs of respiratory distress, Respirations: normal, no use of accessory muscles, no retractions, labored breathing, is not present, Breath sounds: are clear throughout, no decreased breath sounds. 21:40 Abdomen/GI: Inspection: abdomen appears normal, Palpation: abdomen is soft and non-tender, in all quadrants. 21:40 Neuro: Orientation: is normal, Mentation: is normal. 22:05 ECG was reviewed by the Attending Physician. Vital Signs: 21:10 BP 121 / 68; Pulse 95; Resp 16 S; Temp 97.9(TE); Pulse Ox 100% on R/A; Weight 54.43 kg jd3 (R); Height 5 ft. 2 in. (157.48 cm) (R); Pain 0/10; 23:38 BP 119 / 81; Pulse 92; Resp 17 S; Pulse Ox 100% on R/A; jd3 21:10 Body Mass Index 21.95 (54.43 kg, 157.48 cm) jd3 MDM: 21:26 Patient medically screened. cp 22:00 Differential Diagnosis cardiac arrythmia, dehydration, electrolyte abnormality. 23:30 Data reviewed: vital signs, nurses notes, lab test result(s), EKG, and as a result, I will discharge patient. 23:30 Test interpretation: by ED physician or midlevel provider: ECG. 08/24 21:31 Order name: BMP; Complete Time: 23:09 08/24 23:10 Interpretation: Normal except: NA 128; K 3.2; CL 97; BUN 64; CRE 5.14; GFR 10; CA 7.7. 08/24 21:31 Order name: Magnesium; Complete Time: 23:09 08/24 21:31 Order name: EKG; Complete Time: 21:32 08/24 21:31 Order name: EKG - Nurse/Tech; Complete Time: 22:19 08/24 21:31 Order name: CBC with Diff; Complete Time: 22:52 08/24 22:54 Interpretation: Normal except: WBC 9.9; RBC 2.78; HGB 8.3; HCT 24.2; RDW 18.9. cp EC:05 Rate is 97 beats/min. Rhythm is regular. SD interval is normal. QRS interval is normal. cp QT interval is normal. T waves are Inverted in leads V2, V3, V4. Interpreted by me. Reviewed by me. Administered Medications: No medications were administered Disposition: 08/25 00:11 Co-signature as Attending Physician, Ayan Oneill MD. pkl Disposition: 08/24/20 23:51 Discharged to Home. Impression: Other specified abnormal findings of blood chemistry - history of hyponatremia. - Condition is Stable. - Discharge Instructions: Hyponatremia, Dialysis, Dialysis Diet. - Medication Reconciliation Form, Thank You Letter, Antibiotic Education, Prescription Opioid Use form. - Follow up: Private Physician; When: 1 - 2 days; Reason: Recheck today's complaints. - Problem is an ongoing problem. - Symptoms have improved. Signatures: Dispatcher [employer] Celeste Camp RN RN sv Lam, Pin, MD MD pkl Kd Rogel PA PA cp Davies, Jonathon, RN RN jd3 Corrections: (The following items were deleted from the chart) 08/24 23:10 23:09 Normal except: NA 128; K 3.2; CL 97; BUN 64; CRE 5.14; GFR 10. cp cp 08/25 00:03 08/24 23:51 08/24/2020 23:51 Discharged to Home. Impression: Other specified abnormal jd3 findings of blood chemistry - history of hyponatremia. Condition is Stable. Forms are Medication Reconciliation Form, Thank You Letter, Antibiotic Education, Prescription Opioid Use. Follow up: Private Physician; When: 1 - 2 days; Reason: Recheck today's complaints. Problem is an ongoing problem. Symptoms have improved. cp 08/25 03:31 08/24 21:32 Family of patient report patient was contacted today to go to ED for cp evaluation of low serum sodium. Patient is a dialysis patient and had blood drawn yesterday. Family of patient reports she completed dialysis yesterday. No complaints expressed by patient. cp
--- NOTE | 2020-08-25 06:03 | EKG ---
Test Date: 2020-08-24 Test Time: 21:59:36 [employer] Type One: ALIZE MEASUREMENT RESULTS: Intervals: Rate: 97 CA: 120 QRSD: 88 QT: 358 QTc: 454 [place]: P: 43 CA: 120 QRS: 70 T: 139 INTERPRETIVE STATEMENTS: Normal sinus rhythm T wave abnormality, consider anterior ischemia Abnormal ECG Compared to ECG 08/17/2020 20:49:13 T-wave abnormality now present Sinus tachycardia no longer present ST (T wave) deviation no longer present Possible ischemia still present Electronically Signed On 08-25-20 06:02:56 [employer]AT CLEAN[employer] by Aubrey Canales
[2020-08-25 10:07] VITALS: TEMP 97.9; O2SAT 100
[2020-08-25 10:08] VITALS: BP 119/81
== END 2020-08-25 00:03 | disposition home or self-care (01) ==
LOC: ER 20:58
DX: E87.1 Hypo-osmolality and hyponatremia (principal); I10 Essential (primary) hypertension; N28.9 Disorder of kidney and ureter, unspecified; Z99.2 Dependence on renal dialysis
CPT/HCPCS: 36415; 80048; 83735; 85025; 93005; 99283

== ENCOUNTER 2020-12-30 03:46 | Emergency (ER) | payer OTHER ==
--- OUTSIDE RECORDS SUMMARY | 2020-12-30 03:55 | XMS REPORT | Continuity of Care Document ---
:1945 Author Organization [facility] t Address [address] [place] [address] Care Team Providers Name Role Phone Jordin RODRIGUEZ Attending Clinician Shasta Stephenson MD Attending Clinician Sabrina Hahn MD Attending Clinician Jon Michael MD Attending Clinician Nirali RODRIGUEZ Attending Clinician Cynthia Shultz MD Attending Clinician Elsy Morrell MD Attending Clinician Jayson Santos MD Attending Clinician [phone] JORDIN Attending Clinician Unavailable SHASTA STEPHENSON Admitting Clinician Unavailable Payers Payer Name Policy Type Policy Effective Date Expiration Date Sour ce Number CIGNA [id number] [facility] 00:00:00 - [facility] [id number]/[id number]/2019-Pr esentMaps Contracted Problems Condition Condition Condition Status [...] Acute Disease Active [facility] metabolic 9 [facility] - encephalop encephalop 00:00: Me dicaye athariel athy 00 Center Altered Altered Disease Active [facility] mental mental 9- [facility] - status status 00:00: Medical 00 Center ESRD ESRD Disease Active [facility] needing needing [facility] - dialysis dialysis Medica l Center Allergies, Adverse Reactions, Alerts This patient has no known allergies or adverse reactions. Social History Social Habit Start Date Stop Date Quantity Comments Source History [facility] - Alcohol Std Drinks Medica l Center History [facility] - Alcohol Binge Medical Harika ter Sex Assigned At [facility] kes [facility] Tobacco use and 2020-07-21 2020-07-[address] [facility] [address] Karla kes - exposure 00:00:00 00:00:00 [facility] Alcohol intake 2020-07-21 2020-07-21 [facility] non-drinker of Medical Ce nter alcohol (finding) History [facility] 2020-07-04 2020-07-[address] [facility] - Alcohol Frequency 00:00:00 00:00:00 [facility] Center Smoking Status Start Date Stop Date Source Never smoker [facility] kes M edical [place] Medications Ordered Filled Start Stop Current Ordering [...] Take [address] Non-Formula 0-05 08- by mouth. Karla kes - ry 12:58: 00:00 Medical Medication 10 :00 Center dexAMETHaso 2019-10- No 20mg Take [address] [address] ne 0-05 08- by mouth [facility] - (DECADRON) 12:58: 00:00 once evry M edical 6 MG tablet 10 :00 Cent er after chemo. pantoprazol 2019-10 Yes 40mg Q.5D Take [address] e 0-29 tablet (40 [facility] - (PROTONIX) 00:00: mg total) Me dical 40 MG 00 by mouth 2 Center tablet (two) times daily For 8 weeks. calcium 2019-10 No 1000mg QD Take 2 [facility] carbonate 0-04 08-29 tablets [facility] - (TUMS) 500 00:00: 23:59 (1,000 mg M edical mg chewable 00 :00 total) by Harika ter tablet mouth nightly. levETIRAcet 2019-10- No 250mg Q.5D Take [address] am (KEPPRA) 0-04 08- tablet [facility] - 250 MG 00:00: 23:59 (250 mg Medical tablet 00 :00 total) by Center mouth 2 (two) times daily. Vital Signs Vital Name Observation Time Observation Value Comments Source Systolic blood 2020-08-05 16:24:00 119 mm[Hg] [facility] pressure [facility] Diastolic blood 2020-08-05 16:24:00 69 mm[Hg] [facility] S t [facility] pressure [facility] Heart rate 2020-08-05 16:24:00 82 /min [facility] Body temperature 2020-08-05 16:24:00 36.56 [facility] Respiratory rate 2020-08-05 16:24:00 18 /min [facility] Oxygen saturation in 2020-08-05 16:24:00 99 /min [facility] - Arterial blood by Medical Ce nter Pulse oximetry Body weight 2020-08-05 12:19:00 52.5 kg [facility] BMI 2020-08-05 12:19:00 21.88 kg/m2 [facility] Body height 2020-07-04 08:00:00 154.9 cm [facility] Procedures Procedure Date / Time Performing Clinician Source Performed POCT-GLUCOSE METER 2020-08-05 17:11:00 Latasha Michael liborio [facility] POCT-GLUCOSE METER 2020-08-05 13:05:00 [facility] 2020-08-05 12:38:32 Mikael Gomes [facility] POCT-GLUCOSE METER 2020-08-05 07:17:00 [facility] SARS-COV2/RT-PCR ([facility] & 2020-08-05 06:15:00 [facility] COVID19 ([facility]) 2020-08-05 06:15:00 Mk Boss [facility] BASIC METABOLIC PANEL (7) 2020-08-05 03:52:00 Latasha Michael [facility] CBC W/PLT COUNT & AUTO 2020-08-05 03:52:00 Latasha Michael [facility] PHOSPHORUS 2020-08-05 03:52:00 Latasha Michael [facility] MAGNESIUM 2020-08-05 03:52:00 Wilbert Shultz [facility] POCT-GLUCOSE METER 2020-08-04 21:29:00 [facility] HEPATITIS B PANEL 2020-08-04 18:36:00 Fernanda Latashasa Webb [facility] HEPATITIS B CORE 2020-08-04 18:36:[address] [facility] s - ANTIBODY, IGM [facility] POCT-GLUCOSE METER 2020-08-04 16:44:00 FernandaLatasha ye [facility] POCT-GLUCOSE METER 2020-08-04 08:52:00 Fernanda, [facility] BASIC METABOLIC PANEL (7) 2020-08-04 03:54:00 Fernanda, Latasha munguia [facility] CBC W/PLT COUNT & AUTO 2020-08-04 03:54:00 Fernanda, Latasha Lockhartstarlaa C [facility] PHOSPHORUS 2020-08-04 03:54:00 Fernanda, Latasha Webb [facility] MAGNESIUM 2020-08-04 03:54:00 Wilbert Shultz katia [facility] (CELLAVISION MANUAL DIFF) 2020-08-04 03:54:00 Fernanda, Latasha Sloan [facility] POCT-GLUCOSE METER 2020-08-03 20:58:00 [facility] ([facility] & 2020-08-03 18:00:00 Wilbert Shultz [facility] - REF LABS) [facility] POCT-GLUCOSE METER 2020-08-03 17:43:00 Fern[facility] POCT-GLUCOSE METER 2020-08-03 08:37:00 Fernanda, Latasha [facility] HEMODIALYSIS INPATIENT 2020-08-03 08:17:00 Mikael Gomes [facility] BASIC METABOLIC PANEL (7) 2020-08-03 04:00:00 Fernanda, Latasha munguia [facility] CBC W/PLT COUNT & AUTO 2020-08-03 04:00:00 Fernanda, Latasha Lockhartstarlaa C [facility] PHOSPHORUS 2020-08-03 04:00:00 Fernanda, Latasha Webb [facility] MAGNESIUM 2020-08-03 04:00:00 Wilbert Shultz [facility] POCT-GLUCOSE METER 2020-08-02 22:04:00 Fernanda, Latasha Webb [facility] POCT-GLUCOSE METER 2020-08-02 17:53:00 Fernanda, Latasha Sloana [facility] POCT-GLUCOSE METER 2020-08-02 17:25:00 Fernanda, Latasha Sloana [facility] POCT-GLUCOSE METER 2020-08-02 12:22:00 Fernanda, Latasha Sloana [facility] POCT-GLUCOSE METER 2020-08-02 08:14:00 Fernanda, Latasha Sloana [facility] POCT-GLUCOSE METER 2020-08-02 06:50:00 Fernanda, Latasha Webb [facility] BASIC METABOLIC PANEL (7) 2020-08-02 03:37:00 Fernanda, Latasha munguia [facility] IMMUNOGLOBULIN G (IGG) 2020-08-02 03:37:00 Leonarda Jones [facility] CBC W/PLT COUNT & AUTO 2020-08-02 03:37:00 Fernanda, Latasha Richyliborio C [facility] PHOSPHORUS 2020-08-02 03:37:00 Fernanda, Latasha Lockhartstarlaa [facility] MAGNESIUM 2020-08-02 03:37:00 Wilbert Shultz [facility] KAPPA / LAMBDA LIGHT 2020-08-02 03:36:00 Leonarda Jones [facility] HEMODIALYSIS INPATIENT 2020-08-01 23:56:24 Mikael Gomes [facility] POCT-GLUCOSE METER 2020-08-01 17:11:00 Fernanda, Latasha Richyliborio [facility] BASIC METABOLIC PANEL (7) 2020-08-01 15:42:00 Mikael Gomes [facility] PHOSPHORUS 2020-08-01 15:42:00 Mikael Gomes [facility] POCT-GLUCOSE METER 2020-08-01 12:47:00 Fernanda, Latasha Richyliborio [facility] POCT-GLUCOSE METER 2020-08-01 07:39:00 Fernanda, Latasha Sloana [facility] BASIC METABOLIC PANEL (7) 2020-08-01 03:40:00 Fernanda, Latasha Lockhartunn a [facility] HEPATIC FUNCTION PANEL 2020-08-01 03:40:00 Fernanda, Latasha Hyunna C [facility] CBC W/PLT COUNT & AUTO 2020-08-01 03:40:00 Fernanda, Latasha Hyunna C [facility] PHOSPHORUS 2020-08-01 03:40:00 Fernanda, Latasha Hystarlaa [facility] MAGNESIUM 2020-08-01 03:40:00 JoudaWilbert murguia [facility] PREPARE LEUKO-REDUCED RBC 2020-07-31 23:54:00 Fernanda, Latasha Lockhartstarla a [facility] POCT-GLUCOSE METER 2020-07-31 21:24:00 Fernanda, Latasha Sloana [facility] POCT-GLUCOSE METER 2020-07-31 11:20:00 Fernanda, Latasha Sloana [facility] POCT-GLUCOSE METER 2020-07-31 07:38:00 Fernanda, Latasha Webb [facility] BASIC METABOLIC PANEL (7) 2020-07-31 07:36:00 Fernanda, Latasha Lockhartstarla a [facility] PHOSPHORUS 2020-07-31 07:36:00 Fernanda, Latasha Hyunna [facility] MAGNESIUM 2020-07-31 07:36:00 JoudaWilbert murguia [facility] POCT-GLUCOSE METER 2020-07-31 07:19:00 Fernanda, Latasha Sloana [facility] CBC W/PLT COUNT & AUTO 2020-07-31 06:19:00 Fernanda, Latasha Hyunna C [facility] POCT-GLUCOSE METER 2020-07-30 21:36:00 Fernanda, Latasha Nathaliaa [facility] POCT-GLUCOSE METER 2020-07-30 16:58:00 Fernanda Latasha liborio [facility] POCT-GLUCOSE METER 2020-07-30 12:09:00 Fernanda [facility] TRANSFUSE LEUKO-REDUCED 2020-07-30 10:22:59 Fernanda [facility] RED BLOOD CELLS [facility] POCT-GLUCOSE METER 2020-07-30 08:49:00 Fernanda [facility] TYPE AND SCREEN, 2020-07-30 07:54:00 Fernanda[facility] 2020-07-30 07:50:04 Sarbjit Mcmahon [facility] HEPATITIS B SURFACE 2020-07-30 07:44:00 Sarbjit Mcmahon [facility] BASIC METABOLIC PANEL (7) 2020-07-30 04:48:00 Fernanda Latasha Richystarla [facility] CBC W/PLT COUNT & AUTO 2020-07-30 04:48:00 Latasha Michael [facility] PHOSPHORUS 2020-07-30 04:48:00 Fernanda Latasha Lockhartliborio [facility] MAGNESIUM 2020-07-30 04:48:00 Wilbert Shultz [facility] POCT-GLUCOSE METER 2020-07-29 22:07:00 [facility] POCT-GLUCOSE METER 2020-07-29 17:01:00 Wilbert Shultz katia [facility] POCT-GLUCOSE METER 2020-07-29 11:57:00 [facility] POCT-GLUCOSE METER 2020-07-29 07:58:00 Wilbert Shultz katia [facility] BASIC METABOLIC PANEL (7) 2020-07-29 04:11:00 Latasha Michael Richystarla munguia [facility] CBC W/PLT COUNT & AUTO 2020-07-29 04:11:00 FenrandaLatashaa C [facility] PHOSPHORUS 2020-07-29 04:11:00 Fernanda Latsaha Hystarlaa [facility] MAGNESIUM 2020-07-29 04:11:00 JofaisalbladeWilbert [facility] POCT-GLUCOSE METER 2020-07-28 22:23:00 JoudaWilbert murguia [facility] POCT-GLUCOSE METER 2020-07-28 18:13:00 JoudaWilbert murguia [facility] POCT-GLUCOSE METER 2020-07-28 13:02:00 Wilbert Shultz [facility] BASIC METABOLIC PANEL (7) 2020-07-28 03:54:00 Latasha Michael a [facility] CBC W/PLT COUNT & AUTO 2020-07-28 03:54:00 Latasha Michaela C [facility] PHOSPHORUS 2020-07-28 03:54:00 FernandaLatasha Hystarlaa [facility] MAGNESIUM 2020-07-28 03:54:00 JoWilbert greenfield [facility] POCT-GLUCOSE METER 2020-07-27 22:19:00 Wilbert Shultz katia [facility] SARS-COV2/RT-PCR ([facility] & 2020-07-27 18:28:[address] [facility] [place] POCT-GLUCOSE METER 2020-07-27 17:23:00 Wilbert Shultz [facility] POCT-GLUCOSE METER 2020-07-27 11:25:00 Wilbert Shultz [facility] POCT-GLUCOSE METER 2020-07-27 08:20:00 Angus Campoverde [facility] BASIC METABOLIC PANEL (7) 2020-07-27 04:01:00 Latasha Michael a [facility] CBC W/PLT COUNT & AUTO 2020-07-27 04:01:00 Latasha Michael [facility] PHOSPHORUS 2020-07-27 04:01:00 Latasha Michael [facility] MAGNESIUM 2020-07-27 04:01:00 Wilbert Shultz [facility] PREPARE LEUKO-REDUCED RBC 2020-07-26 23:54:00 Wilbert Shultz [facility] POCT-GLUCOSE METER 2020-07-26 21:35:00 Nirali [facility] POCT-GLUCOSE METER 2020-07-26 16:49:00 Nirali [facility] HEMODIALYSIS INPATIENT 2020-07-26 12:00:00 Sarbjit Mcmahon [facility] POCT-GLUCOSE METER 2020-07-26 11:53:00 Nirali [facility] POCT-GLUCOSE METER 2020-07-26 08:07:00 Nirali [facility] BASIC METABOLIC PANEL (7) 2020-07-26 04:44:00 Latasha Michael [facility] CBC W/PLT COUNT & AUTO 2020-07-26 04:44:00 Latasha Michael [facility] PHOSPHORUS 2020-07-26 04:44:00 Latasha Michael [facility] MAGNESIUM 2020-07-26 04:44:00 Wilbert Shultz [facility] POCT-GLUCOSE METER 2020-07-25 21:14:00 Nirali [facility] TRANSFUSE LEUKO-REDUCED 2020-07-25 17:34:[address] [facility] RED BLOOD CELLS [facility] POCT-GLUCOSE METER 2020-07-25 16:57:00 Nirali [facility] POCT-GLUCOSE METER 2020-07-25 12:06:00 Angus Campoverde [facility] ABORH, MANUAL 2020-07-25 09:35:00 Wilbert Shultz [facility] ANTIBODY SCREEN 2020-07-25 09:35:00 [facility] POCT-GLUCOSE METER 2020-07-25 07:58:00 Angus Campoverde [facility] BASIC METABOLIC PANEL (7) 2020-07-25 04:45:00 Latasha Michael [facility] VISCOSITY, SERUM 2020-07-25 04:45:00 EscudierLeonarda [facility] IMMUNOGLOBULIN G (IGG) 2020-07-25 04:45:00 EscLeonarda emanuel [facility] KAPPA / LAMBDA LIGHT 2020-07-25 04:45:00 EscLeonarda emanuel [facility] CBC W/PLT COUNT & AUTO 2020-07-25 04:45:00 Latasha Michael C [facility] PHOSPHORUS 2020-07-25 04:45:00 FernandaLatasha ye Hystarlaa [facility] MAGNESIUM 2020-07-25 04:45:00 Wilbert Shultz [facility] POCT-GLUCOSE METER 2020-07-24 22:51:00 GiveonAngus [facility] POCT-GLUCOSE METER 2020-07-24 17:49:00 Angus Campoverde [facility] POCT-GLUCOSE METER 2020-07-24 12:20:00 GiveonAngus [facility] POCT-GLUCOSE METER 2020-07-24 08:31:00 Angus Campoverde [facility] BASIC METABOLIC PANEL (7) 2020-07-24 05:33:00 FernandaLatasha ye [facility] HEPATIC FUNCTION PANEL 2020-07-24 05:33:00 EscLeonarda emanuel [facility] MAGNESIUM 2020-07-24 05:33:00 Mikayla Mireles [facility] CBC W/PLT COUNT & AUTO 2020-07-24 05:33:00 FernandaLatasha Hystarlaa C [facility] PHOSPHORUS 2020-07-24 05:33:00 Fernanda, Latasha Hystarlaa [facility] POCT-GLUCOSE METER 2020-07-23 21:25:00 Giveon Angus [facility] HEMODIALYSIS INPATIENT 2020-07-23 20:06:35 Mikael Gomes [facility] POCT-GLUCOSE METER 2020-07-23 12:01:00 Giveon Angus [facility] POCT-GLUCOSE METER 2020-07-23 08:03:00 Giveon [facility] BASIC METABOLIC PANEL (7) 2020-07-23 04:09:00 FernandaLatasha ye a [facility] MAGNESIUM 2020-07-23 04:09:00 Mikayla Mireles [facility] CBC W/PLT COUNT & AUTO 2020-07-23 04:09:00 FernandaLatasha ye Hystarlaa C [facility] PHOSPHORUS 2020-07-23 04:09:00 FernandaLatasha Hyunna [facility] POCT-GLUCOSE METER 2020-07-22 21:31:00 Giveon Angus [facility] POCT-GLUCOSE METER 2020-07-22 16:59:00 Giveon Angus [facility] POCT-GLUCOSE METER 2020-07-22 12:17:00 Giveon [facility] POCT-GLUCOSE METER 2020-07-22 07:50:00 Giveon Angus [facility] BASIC METABOLIC PANEL (7) 2020-07-22 04:45:00 Fernanda, Latasha Hyunn a [facility] MAGNESIUM 2020-07-22 04:45:00 Mikayla Mireles [facility] CBC W/PLT COUNT & AUTO 2020-07-22 04:45:00 Fernanda, Latasha Hyunna C [facility] PHOSPHORUS 2020-07-22 04:45:00 Latasha Michael [facility] HEMODIALYSIS INPATIENT 2020-07-21 23:12:34 Mikael Gomes [facility] POCT-GLUCOSE METER 2020-07-21 22:52:00 Nirali [facility] POCT-GLUCOSE METER 2020-07-21 22:33:00 Nirali [facility] POCT-GLUCOSE METER 2020-07-21 17:49:00 Givecassi [facility] POCT-GLUCOSE METER 2020-07-21 16:57:00 Nirali [facility] REPORT OF PROCEDURE - 2020-07-21 15:42:48 Saloni Santos [facility] - ENDOSCOPY [facility] UPPER ENDOSCOPY,PEG 2020-07-21 14:50:00 Saloni Santos [facility] POCT-GLUCOSE METER 2020-07-21 13:04:00 Nirali [facility] POCT-GLUCOSE METER 2020-07-21 12:26:00 Nirali [facility] POCT-GLUCOSE METER 2020-07-21 08:19:00 Nirali [facility] BASIC METABOLIC PANEL (7) 2020-07-21 04:37:00 Latasha Michael [facility] MAGNESIUM 2020-07-21 04:37:00 Mikayla Mireles [facility] CBC W/PLT COUNT & AUTO 2020-07-21 04:37:00 Latasha Michael [facility] PHOSPHORUS 2020-07-21 04:37:00 Latasha Michael [facility] PT/APTT 2020-07-21 04:37:00 FernandaLatasha ye [facility] POCT-GLUCOSE METER 2020-07-20 16:38:00 Latasha Michael [facility] POCT-GLUCOSE METER 2020-07-20 12:06:00 Fernanda, Latasha Webb [facility] SARS-COV2/RT-PCR ([facility] & 2020-07-20 08:49:00 Gildardo Santos [facility] - REF LABS) [facility] POCT-GLUCOSE METER 2020-07-20 07:40:00 Fernanda, Latasha Webb [facility] CBC W/PLT COUNT & AUTO 2020-07-20 03:35:00 Fernanda, Latasha Lockhartliborio C [facility] BASIC METABOLIC PANEL (7) 2020-07-20 03:34:00 Fernanda, Latasha Lockhartstarla debbie [facility] IMMUNOGLOBULIN G (IGG) 2020-07-20 03:34:00 NatalioFernando peña [facility] KAPPA / LAMBDA LIGHT 2020-07-20 03:34:00 Fernando Lance [facility] - [facility] MAGNESIUM 2020-07-20 03:34:00 Mikayla Mireles [facility] PHOSPHORUS 2020-07-20 03:34:00 Fern[facility] PREPARE LEUKO-REDUCED RBC 2020-07-19 23:54:00 Fernanda Latasha Lockhartstarla debbie [facility] POCT-GLUCOSE METER 2020-07-19 18:14:00 Fernanda, Latasha Lockhartstarladebbie [facility] POCT-GLUCOSE METER 2020-07-19 17:26:00 Fernanda Latasha Webb [facility] POCT-GLUCOSE METER 2020-07-19 16:52:00 [facility]IENT 2020-07-19 15:27:29 Mikael Gomes [facility] HEMODIALYSIS INPATIENT 2020-07-19 12:47:55 Mikael Gomes [facility] POCT-GLUCOSE METER 2020-07-19 11:24:00 Fernanda, Latasha Lockhartstarladebbie [facility] POCT-GLUCOSE METER 2020-07-19 07:51:00 Fernanda, Latasha Webb [facility] BASIC METABOLIC PANEL (7) 2020-07-19 03:39:00 Fernanda, Latasha Sloan a [facility] CBC (HEMOGRAM ONLY) 2020-07-19 03:39:00 Fernanda, Latasha Sloana [facility] MAGNESIUM 2020-07-19 03:39:00 Mikayla Mireles [facility] CBC W/PLT COUNT & AUTO 2020-07-19 03:39:00 Fernanda, Latasha Webb [facility] PHOSPHORUS 2020-07-19 03:39:00 Fernanda, Latasha Webb [facility] POCT-GLUCOSE METER 2020-07-18 23:34:00 Fernanda, Latasha Webb [facility] HEMODIALYSIS INPATIENT 2020-07-18 23:00:00 Mikael Gomes [facility] TRANSFUSE LEUKO-REDUCED 2020-07-18 21:32:41 Fernanda, Latasha Webb [facility] RED BLOOD CELLS [facility] POCT-GLUCOSE METER 2020-07-18 16:40:00 Fernanda, Latasha Webb [facility] ECG 12-LEAD 2020-07-18 12:41:10 Unknown, Hl7 Doctor [facility] POCT-GLUCOSE METER 2020-07-18 12:09:00 Fernanda, Latasha Webb [facility] ABORH, MANUAL 2020-07-18 12:07:00 Fernanda, Latasha Webb [facility] ANTIBODY SCREEN 2020-07-18 12:07:00 Fernanda, Latasha Webb [facility] IR TUNNELED DIALYSIS 2020-07-18 11:40:00 Fernanda, Latasha Webb [facility] CATHETER [facility] PT/APTT 2020-07-18 08:44:00 Fernanda, Latasha Webb [facility] POCT-GLUCOSE METER 2020-07-18 07:16:00 Fernanda, Latasha Webb [facility] BASIC METABOLIC PANEL (7) 2020-07-18 05:59:00 Fernanda, Latasha Sloan a [facility] MAGNESIUM 2020-07-18 05:59:00 Mikayla Mireles [facility] CBC W/PLT COUNT & AUTO 2020-07-18 05:59:00 Fernanda, Latasha Lockhartstarlaa C [facility] PHOSPHORUS 2020-07-18 05:59:00 Fernanda, Latasha Webb [facility] POCT-GLUCOSE METER 2020-07-17 21:11:00 Fernanda, Latasha Webb [facility] POCT-GLUCOSE METER 2020-07-17 17:04:00 Fernanda, Latasha Webb [facility] BASIC METABOLIC PANEL (7) 2020-07-17 17:01:00 Fernanda, Latasha Lockhartstarla a [facility] POCT-GLUCOSE METER 2020-07-17 11:54:00 Fernadna, Latasha Webb [facility] POCT-GLUCOSE METER 2020-07-17 07:24:00 Fernanda Latasha Webb [facility] MAGNESIUM 2020-07-17 05:17:00 Mikayla Mireles [facility] COMPREHENSIVE METABOLIC 2020-07-17 05:17:00 Mikayla Mireles [facility] CBC W/PLT COUNT & AUTO 2020-07-17 05:17:00 Fernanda Latasha Lockhartstarlaa C HI [facility] PHOSPHORUS 2020-07-17 05:17:00 Fernanda, Latasha Webb [facility] POCT-GLUCOSE METER 2020-07-16 23:38:00 Fernanda, Latasha Sloana [facility] POCT-GLUCOSE METER 2020-07-16 16:34:00 Fernanda, Latasha Sloana [facility] ECG 12-LEAD 2020-07-16 16:17:03 Fernanda, Latasha Webb [facility] POCT-GLUCOSE METER 2020-07-16 11:56:00 [facility] POCT-GLUCOSE METER 2020-07-16 07:43:00 FernandaLatasha ye [facility] MAGNESIUM 2020-07-16 05:33:00 Mikayla Mireles [facility] COMPREHENSIVE METABOLIC 2020-07-16 05:33:00 Mikayla Mireles [facility] CBC W/PLT COUNT & AUTO 2020-07-16 05:33:00 Fernanda, Latasha Mercado [facility] PHOSPHORUS 2020-07-16 05:33:00 Fernanda, Latasha Webb [facility] POCT-GLUCOSE METER 2020-07-15 23:58:00 Fernanda [facility] POCT-GLUCOSE METER 2020-07-15 17:36:00 [facility]UCOSE METER 2020-07-15 11:09:00 [facility] POCT-GLUCOSE METER 2020-07-15 07:25:00 Massumi, [facility] MAGNESIUM 2020-07-15 06:56:00 Mikayla Mireles [facility] COMPREHENSIVE METABOLIC 2020-07-15 06:56:00 MirelesMikayla [facility] CBC W/PLT COUNT & AUTO 2020-07-15 06:56:00 Fernanda Latasha Webb [facility] [facility] PHOSPHORUS 2020-07-15 06:56:00 Fernanda Latasha Webb [facility] POCT-GLUCOSE METER 2020-07-15 00:52:00 [facility] 2020-07-14 18:03:36 Provider [facility] REPORT - SCAN [facility] POCT-GLUCOSE METER 2020-07-14 17:46:00 Massmary kate, [facility] HEMODIALYSIS INPATIENT 2020-07-14 12:40:00 Patience Combs [facility] MAGNESIUM 2020-07-14 08:27:00 Mikayla Mireles [facility] COMPREHENSIVE METABOLIC 2020-07-14 08:27:00 MirelesMikayla [facility] CBC W/PLT COUNT & AUTO 2020-07-14 08:27:[address] [facility] PHOSPHORUS 2020-07-14 08:27:00 FernandaLatasha ye liborio [facility] PREPARE LEUKO-REDUCED RBC 2020-07-13 23:54:00 Cirilomary kate, [facility] POCT-GLUCOSE METER 2020-07-13 21:48:00 [facility], [facility] TRANSFUSION SERVICE 2020-07-13 18:02:57 Provider [facility] REPORT - SCAN Scanning [facility] POCT-GLUCOSE METER 2020-07-13 17:08:00 [facility], [facility] POCT-GLUCOSE METER 2020-07-13 10:58:00 [facility] 2020-07-13 04:52:00 ChiMikayla [facility] COMPREHENSIVE METABOLIC 2020-07-13 04:52:00 ChiMikayla [facility] CBC W/PLT COUNT & AUTO 2020-07-13 04:52:00 FernandaLatasha yea [facility] PHOSPHORUS 2020-07-13 04:52:00 FernandaLatasha ye Richyliborio [facility] POCT-GLUCOSE METER 2020-07-12 22:55:00 Massmary kate, [facility] HEMODIALYSIS INPATIENT 2020-07-12 18:40:14 Patience Combs [facility] POCT-GLUCOSE METER 2020-07-12 17:57:00 [facility], [facility] POCT-GLUCOSE METER 2020-07-12 17:39:00 [facility], [facility] TRANSFUSE LEUKO-REDUCED 2020-07-12 16:49:36 [facility], [facility] - RED BLOOD CELLS [facility] POCT-GLUCOSE METER 2020-07-12 07:29:00 [facility], [facility] TYPE AND SCREEN 2020-07-12 06:28:00 [facility], [facility] MAGNESIUM 2020-07-12 04:13:00 Mikayla Mireles [facility] COMPREHENSIVE METABOLIC 2020-07-12 04:13:00 Mikayla Mireles [facility] CBC W/PLT COUNT & AUTO 2020-07-12 04:13:00 Latasha Michael [facility] PHOSPHORUS 2020-07-12 04:13:00 [facility] POCT-GLUCOSE METER 2020-07-11 20:31:00 [facility], [facility] POCT-GLUCOSE METER 2020-07-11 16:29:00 [facility], [facility] POCT-GLUCOSE METER 2020-07-11 11:35:00 [facility], [facility] MAGNESIUM 2020-07-11 05:47:00 Mikayla Mireles [facility] COMPREHENSIVE METABOLIC 2020-07-11 05:47:00 Mikayla Mireles [facility] PHOSPHORUS 2020-07-11 05:47:00 [facility] PROTEIN ELECTROPHORESIS, 2020-07-11 05:46:00 Leonarda Jones [facility] IMMUNOGLOBULIN G (IGG) 2020-07-11 05:46:00 Leonarda Jones [facility] KAPPA / LAMBDA LIGHT 2020-07-11 05:46:00 Leonarda Jones [facility] CBC W/PLT COUNT & AUTO 2020-07-11 05:46:00 Fernanda, Latasha Mercado [facility] POCT-GLUCOSE METER 2020-07-11 05:36:00 Massumi, [facility] POCT-GLUCOSE METER 2020-07-10 23:17:00 Massumi, [facility] POCT-GLUCOSE METER 2020-07-10 16:43:00 Massumi, [facility] POCT-GLUCOSE METER 2020-07-10 11:51:00 Massumi, [facility] MAGNESIUM 2020-07-10 05:20:00 Mikayla Mireles [facility] COMPREHENSIVE METABOLIC 2020-07-10 05:20:00 Mikayla Mireles [facility] CBC W/PLT COUNT & AUTO 2020-07-10 05:20:00 Latasha Michael [facility] PHOSPHORUS 2020-07-10 05:20:00 Latasha Michael [facility] POCT-GLUCOSE METER 2020-07-10 05:13:00 Massumi, [facility] POCT-GLUCOSE METER 2020-07-09 23:15:00 Massumi, [facility] POCT-GLUCOSE METER 2020-07-09 17:06:00 [facility], [facility] HEMODIALYSIS INPATIENT 2020-07-09 10:24:46 Lucien El [facility] POCT-GLUCOSE METER 2020-07-09 05:53:00 Ari Stephenson [facility] MAGNESIUM 2020-07-09 04:34:00 Mikayla Mireles [facility] COMPREHENSIVE METABOLIC 2020-07-09 04:34:00 Mikayla Mireles [facility] CBC W/PLT COUNT & AUTO 2020-07-09 04:34:00 Latasha Michaela [facility] PHOSPHORUS 2020-07-09 04:34:00 FernandaLatasha ye [facility] POCT-GLUCOSE METER 2020-07-08 21:55:00 Ari Stephenson [facility] XR ABDOMEN / KUB 1 VIEW 2020-07-08 17:25:00 Ashley Hahn [facility] POCT-GLUCOSE METER 2020-07-08 17:14:00 Ari Stephenson [facility] POCT-GLUCOSE METER 2020-07-08 11:36:00 [facility] MR BRAIN WITHOUT IV 2020-07-08 09:54:[address] [facility] POCT-GLUCOSE METER 2020-07-08 05:58:00 Ari Stephenson [facility] CBC W/PLT COUNT & AUTO 2020-07-08 04:34:00 Latasha Michael [facility] MAGNESIUM 2020-07-08 04:33:00 ChiMikayla [facility] COMPREHENSIVE METABOLIC 2020-07-08 04:33:00 Mikayla Mireles [facility] PHOSPHORUS 2020-07-08 04:33:00 FernandaLatasha ye [facility] POCT-GLUCOSE METER 2020-07-08 00:18:00 Ari Stephenson [facility] POCT-GLUCOSE METER 2020-07-07 18:21:00 [facility] TRANSFUSION SERVICE 2020-07-07 18:02:59 Peter Duarte [facility] REPORT - SCAN [facility] POCT-GLUCOSE METER 2020-07-07 11:45:00 Ari Stephenson [facility] AMMONIA 2020-07-07 11:18:00 Leonarda Jones [facility] POCT-GLUCOSE METER 2020-07-07 06:39:00 Ari Stephenson [facility] MAGNESIUM 2020-07-07 04:49:00 ChiMikayla [facility] COMPREHENSIVE METABOLIC 2020-07-07 04:49:00 Chi [facility] W/[facility]T COUNT & AUTO 2020-07-07 04:49:00 FernandaLatasha yea [facility] PHOSPHORUS 2020-07-07 04:49:00 [facility] POCT-GLUCOSE METER 2020-07-07 00:34:00 [facility] PREPARE LEUKO-REDUCED RBC 2020-07-06 23:54:00 Leonarda Jones [facility] TRANSFUSION SERVICE 2020-07-06 18:02:59 ProviderPeter [facility] REPORT - SCAN Scanning [facility] EEG 2-12 HR CONTINUOUS 2020-07-06 17:48:00 [facility] - MONITORING WITH VIDEO Medical Ce nter XR ABDOMEN / KUB 1 VIEW 2020-07-06 16:33:00 [facility] POCT-GLUCOSE METER 2020-07-06 12:09:00 [facility] EEG 12-26 HR CONTINUOUS 2020-07-06 07:00:00 [facility] - MONITORING WITH VIDEO Medical Ce nter POCT-GLUCOSE METER 2020-07-06 05:45:00 [facility] PTH, INTACT 2020-07-06 05:40:[address] [facility] VITAMIN D, 25-HYDROXY 2020-07-06 05:40:00 Radha Ta [facility] MAGNESIUM 2020-07-06 05:40:00 Mikayla Mireles [facility] COMPREHENSIVE METABOLIC 2020-07-06 05:40:00 Mikayla Mireles [facility] CBC W/PLT COUNT & AUTO 2020-07-06 05:40:00 FernandaMelva yesa Richyliborio Mercado [facility] PHOSPHORUS 2020-07-06 05:40:00 Latasha Michael [facility] PREALBUMIN 2020-07-06 05:40:00 Ari Stephenson [facility] TRIGLYCERIDES 2020-07-06 05:40:00 [facility] POCT-GLUCOSE METER 2020-07-05 22:00:00 [facility] TRANSFUSE LEUKO-REDUCED 2020-07-05 13:45:[address] [facility] RED BLOOD CELLS [facility] HEMODIALYSIS INPATIENT 2020-07-05 12:43:30 France Goins [facility] REPORT OF PROCEDURE - 2020-07-05 10:45:16 ProviderPeter [facility] ENDOSCOPY SCAN Scanning [facility] POCT-GLUCOSE METER 2020-07-05 10:35:00 Ari Stephenson [facility] POCT-GLUCOSE METER 2020-07-05 06:12:00 [facility] EEG 12-26 HR CONTINUOUS 2020-07-05 06:09:00 Chato Uriarte [facility] - MONITORING WITH VIDEO [facility] Ce nter VISCOSITY, SERUM 2020-07-05 04:59:00 EscLeonarda emanuel [facility] PROTEIN ELECTROPHORESIS, 2020-07-05 04:59:[address] [facility] IMMUNOGLOBULIN G (IGG) 2020-07-05 04:59:00 Leonarda Jones [facility] MAGNESIUM 2020-07-05 04:59:00 Mikayla Mireles [facility] COMPREHENSIVE METABOLIC 2020-07-05 04:59:00 Mikayla Mireles [facility] CBC W/PLT COUNT & AUTO 2020-07-05 04:59:00 Latasha Michael [facility] PHOSPHORUS 2020-07-05 04:59:00 Latasha Michael [facility] HEPATITIS B SURFACE 2020-07-05 04:59:00 Laura Somers [facility] POCT-GLUCOSE METER 2020-07-05 00:37:00 Ari Stephenson [facility] TRANSFUSION SERVICE 2020-07-04 18:01:47 Provider, Peter [facility] REPORT - SCAN Scanning [facility] VANCOMYCIN LEVEL, RANDOM 2020-07-04 17:38:00 Al Seay [facility] TROPONIN I 2020-07-04 05:07:00 Ronak Sage [facility] MAGNESIUM 2020-07-04 05:07:00 Mikayla Mireles [facility] COMPREHENSIVE METABOLIC 2020-07-04 05:07:00 Mikayla Mireles [facility] CBC W/PLT COUNT & AUTO 2020-07-04 05:07:00 Latasha Michael [facility] PHOSPHORUS 2020-07-04 05:07:00 Latasha Michael [facility] VENOUS DOPPLER LEGS 2020-07-04 01:13:00 Ari Stephenson [facility] BILATERAL [facility] URINE CULTURE 2020-07-04 01:01:00 Lon Lynn [facility] URINALYSIS W/ REFLEX 2020-07-04 01:01:00 Lon Lynn [facility] URINE CULTURE [facility] ECG 12-LEAD 2020-07-03 23:11:19 Unknown, Hl7 Doctor [facility] ECG 12-LEAD 2020-07-03 23:11:00 Mikayla Mireles [facility] RESPIRATORY PANEL [facility] 2020-07-03 22:43:00 Mikayla Mireles [facility] RAPID INFLUENZA A&B 2020-07-03 22:43:00 [facility] TROPONIN I 2020-07-03 22:39:00 Jordin [facility] TSH 2020-07-03 22:39:00 Mikayla Mireles [facility] T4 2020-07-03 22:39:00 Mikayla Mireles [facility] MAGNESIUM 2020-07-03 22:39:00 Mikayla Mireles [facility] COMPREHENSIVE METABOLIC 2020-07-03 22:39:00 Mikayla Mireles [facility] CBC W/PLT COUNT & AUTO 2020-07-03 22:39:00 Latasha Michael [facility] C-REACTIVE PROTEIN 2020-07-03 22:39:00 Mikayla Mireles [facility] IRON, TIBC, % SAT. 2020-07-03 22:39:00 Mikayla Mireles [facility] 2020-07-03 22:39:00 MirelesMikayla [facility] FIBRINOGEN 2020-07-03 22:39:00 Mikayla Mireles [facility] D-DIMER 2020-07-03 22:39:00 Mikayla Mireles [facility] ABORH, MANUAL 2020-07-03 20:44:00 So Salcedo [facility] URINALYSIS W/ REFLEX 2020-07-03 20:29:00 Jordin [facility] URINE CULTURE [facility] TROPONIN I 2020-07-03 20:02:00 Jordin [facility] B-TYPE NATRIURETIC FACTOR 2020-07-03 20:02:[address] [facility] (BNP) [facility] COMPREHENSIVE METABOLIC 2020-07-03 20:02:00 Jordin [facility] URIC ACID 2020-07-03 20:02:00 Mikayla Mireles [facility] TYPE AND SCREEN, 2020-07-03 20:02:00 [facility] - AUTOMATED [facility] ANTIBODY SCREEN 2020-07-03 20:02:00 [facility] ECG 12-LEAD 2020-07-03 19:47:15 [facility] BLOOD CULTURE 2020-07-03 18:31:00 [facility] SARS-COV2/RT-PCR ([facility] & 2020-07-03 18:31:00 [facility] - REF LAB[facility]) [facility] CBC W/PLT COUNT & AUTO 2020-07-03 18:31:00 [facility] LACTIC ACID, VENOUS 2020-07-03 18:31:00 [facility] PT/APTT 2020-07-03 18:31:00 [facility] BLOOD GAS, VENOUS 2020-07-03 18:31:00 [facility] BRAIN WITHOUT IV 2020-07-03 18:09:00 [facility] CONTRAST [facility] XR CHEST 1 VIEW 2020-07-03 17:35:00 [facility] PORTABLE/BEDSIDE Medical Center REPORT OF PROCEDURE - 2020-07-03 00:00:00 Provider, Default [facility] - ENDOSCOPY SCAN Scanning [facility] SARS-COV2/RT-PCR ([facility] & 2020-05-11 16:14:00 [facility] - REF LABS) Medical Center Plan of Care Planned Activity Planned Date Details Comments Source Future Scheduled 2020-10-[address] [facility] Test 00:00:00 WELLNESS (YEAR 2 or Medical Center FIRST YEAR if no IPPE) [code = MEDICARE ANNUAL WELLNESS (YEAR 2 or FIRST YEAR if no IPPE)] Future Scheduled 2020-10-[address] [facility] - Test 00:00:00 (12+) [code = Medical Center DEPRESSION SCREENING (12+)] Future Scheduled 2020-06-07 INFLUENZA VACCINE (#1) [facility] Test 00:00:00 [code = INFLUENZA Medical Ce nter VACCINE (#1)] Future Scheduled 2010 PNEUMOCOCCAL 65+ YRS [facility] - Test 00:00:00 (1 of 1 - Medical Center [id number] PCV13) [code = PNEUMOCOCCAL 65+ YRS (1 of 1 - [id number] PCV13)] Future Scheduled [address] [facility] - Test 00:00:00 [facility] breast [facility]) [code = 519714225] Future Scheduled [address] [facility] - Test 00:00:00 [facility] colon (procedure) [code = 943618724] Results Test Description Test Time Test Comments Results Result Comments Source COVID19 ([facility] [place]) 2020-08-06 20:59:00 Test Item Value Reference Range Interpretation Comme nts COVID19 ([facility]) (test Negative Negative The Aptima SARS-CoV-2 Assay code = 4267987) combines the technologies of TMA (Song Plugger Mediated Amplification) and DKA (Dual Kinetic Assay). It is a qualitative test used for the de tection of nucleic acids from SARS -CoV-2 extracted from nasopharyngeal swabs, throat swabs, nasal and nasal washes. Negative test results ma y occur in spite of active virus in fection. This test was developed b y [employer]. and its analytical performance characteristics have been validated by the [facility] purs uant to CLIA regulations. Th is test has EUA authorization f rom the Food and Drug Administration ([employer] Aptima SARS-CoV-2 Assa y on the [place]). This test was p erformed at:[facility] Reference LaboratoryDr. Ileana Brito[address] Manz[address]resBur[address] [place], [place] [address]UAMI # [id number] [facility] Center[facility]OC-Glucose [id number] 17:24:00 Test Item Value Reference Range Interpretation Comments POC-Glucose Meter (test 94 mg/dL 70-110 : TE STED AT [facility] code = 1538) [address] [facility], 770 30: Electronics Instructor/Techni kathryn ID = [id number] for BRINA GONZALEZ Lab Interpretation (test Normal code = 31860-2) [facility]UCOSE [id number] 17:24:00 Test Item Value Reference Range Interpretation Comments POC-GLUCOSE METER 94 mg/dL 70-110 : TESTED A T [facility] 6720 (BEAKER) (test code = CARLO Lin [facility], 1538) [address]: Electronics Instructor/Techni kathryn ID = [id number] for BRINA GONZALEZ SARS-CoV2/RT-PCR ([facility] & Ref Labs)2020-08-05 13:24:00 Test Item Value Reference Range Interpretation Comments SARS-COV2/RT-PCR (test See external report Not Detected, code = 79839-7) for linked test Negative, See external report for linked test SARS-COV-2 PERFORMING [facility] [place] LAB (test code = 82417-3) [facility]-COV2/RT-PCR ([facility] & REF LABS)2020-08-05 13:24:00 Test Item Value Reference Range Interpretation Comments SARS-COV2/RT-PCR (test See external report Not Detected, code = 6392571) for linked test Negative, See external report for linked test SARS-COV-2 PERFORMING [facility] [place] LAB (test code = 0266922) POCT-GLUCOSE [id number] 13:18:00 Test Item Value Reference Range Interpretation Comments POC-GLUCOSE METER 84 mg/dL 70-110 : TESTED A T [facility] 6720 (BEAKER) (test code = CARLO Lin [facility], 1538) [address]: Electronics Instructor/Techni kathryn ID = [id number] for BRINA GONZALEZ HEMODIALYSIS [id number] 12:38:32Venancio Dominique RN 08/05/2020 12:39 PMHD procedure [...] Lab Results Component Value Date HEPBSAG Nonreactive 08/04/2020[facility] CenterKappa / lambda light chains, serum 2020-08-05 11:31:00 Test Item Value Reference Interpretation Comments Range Arley Lt 3868.1 mg/L 3.3-19.4 H SAMPLE SLIGHTLY HEMOLYZED. Chain,Free (test code = 54987-8) Lambda Lt 3 mg/L 5.7-26.3 L SAMPLE SLIGHTLY HEMOLYZED. Chain,Free (test code = 71735-2) Arley/Lambda,Free >1000.00 0.26-1.65 H SAMPLE SLI GHTLY HEMOLYZED. [...] = Performing Lab HERBIE) EZ [facility] [address] [place] [address] Jenna Zuñiga MD, PhD, BHARAT Lab Interpretation Abnormal (test code = 37551-2) [facility] CenterHepatitis B core antibody, [id number] 09:10:00 Test Item Value Reference Range Interpretation Comments Hep B C IgM (test code = Nonreactive Nonreactive 46668-7) HERBIE (test code = HERBIE) Electronics Instructor ID - PIAYA L Lab Interpretation (test Normal code = 68084-9) [facility] Center[facility]AT[facility]IS B CORE ANTIBODY, [id number] 09:10:00 Test Item Value Reference Range Interpretation Comments HEPATITIS B CORE IGM ANTIBODY Nonreactive Nonreactive (DOM) (test code = 645) Electronics Instructor ID - SHERRY LPOCT-GLUCOSE [id number] 07:28:00 Test Item Value Reference Range Interpretation Comments POC-GLUCOSE METER 121 mg/dL 70-110 H : TESTED A T [facility] 6720 (DOM) (test code = CARLO JASSO [place], 1538) [address]: Electronics Instructor/Techni kathryn ID = [id number] for DI [place], ISSAIRIS SARS-COV2/RT-PCR ([facility] & REF LABS)2020-08-05 06:10:00 Test Item Value Reference Range Interpretation Comments SARS-COV2/RT-PCR See external Not Detected, (test code = report for Negative, See 9852221) linked test external report for linked test SARS-COV-2 Performing lab: PERFORMING LAB [facility] (test code = [facility] [id number]) [place], [place] [address]; Tel Basic Metabolic [id number] 05:32:00 Test Item Value Reference Range Interpretation [...] (test code = 7.9 mg/dL 8.4-10.2 L 15703-8) EGFR (test code = 11 mL/min/1.73 [place] [address]-4) NOT ACCURATE CREATININE CLEARANCE IN PREDICTING GLOMERULAR FILTRATION RATE . ESTIMATED GFR I S NOT APPLICABLE FOR DIALYSIS PATIENTS. HERBIE (test code = HERBIE) Electronics Instructor ID - EDASI Lab Interpretation Abnormal (test code = 89414-0) [facility] CenterBASIC METABOLIC [id number] 05:32:00 Test Item Value Reference Range Interpretation [...] 697) EGFR (BEAKER) (test 11 mL/min/1.73 ESTIMA CHARLENE GFR IS code = 1092) sq m NOT ACCURATE CREATININE CLEARANCE IN PREDICTING GLOMERULAR FILTRATION RATE . ESTIMATED GFR I S NOT APPLICABLE FOR DIALYSIS PATIEN TS. Electronics Instructor ID - [id number] 05:28:00 Test Item Value Reference Range Interpretation Comments Magnesium (test code = 2.1 mg/dL 1.6-2.6 04530-6) HERBIE (test code = HERBIE) Electronics Instructor ID - EDASI Lab Interpretation (test Normal code = 24250-9) [facility] CenterPhosphorus2020-10-30 05:28:00 Test Item Value Reference Range Interpretation Comments Phosphorus (test code = 2.5 mg/dL 2.3-4.7 2777-1) HERBIE (test code = HERBIE) Electronics Instructor ID - EDASI Lab Interpretation (test Normal code = 83564-8) [facility] CenterMAGNESIUM2020-10-30 05:28:00 Test Item Value Reference Range Interpretation Comments MAGNESIUM (BEAKER) (test code = 2.1 mg/dL 1.6-2.6 627) Electronics Instructor ID - [id number] 05:28:00 Test Item Value Reference Range Interpretation Comments PHOSPHORUS (BEAKER) (test code = 2.5 mg/dL 2.3-4.7 604) Electronics Instructor ID - EDASICBC with platelet count + automated [id number] 04:55:00 Test Item Value Reference Range Interpretation Comments WBC (test code = 6690-2) 5.6 See_Comment [A utomated message] The system [employer] generated this result transmitted ref erence range: 3.5 - 10 .5 K/L. The refe rence range was not u sed to interpret this result as normal/abnor mal. RBC (test code = 789-8) 2.73 See_Comment L [Au tomated message] The system [employer] generated this result transmitted ref erence range: 3.93 - 5 .22 M/L. The refe rence range was not u sed to interpret this result as normal/abnor mal. MCHC (test code = 786-4) 31.3 See_Comment L [A utomated message] The system [employer] generated this result transmitted ref erence range: 32.2 - 3 5.5 GM/DL. The refe rence range was not u sed to interpret this result as normal/abnor mal. Hematocrit (test code = 25.2 % 34.1-44.9 L 4544-3) MCV (test code = 787-2) 92.3 fL 79.4-94.8 MCH (test code = 785-6) 28.9 pg 25.6-32.2 RDW (test code = 788-0) 17.0 % 11.7-14.4 H Platelets (test code = 353 See_Comment [Aut omated message] 777-3) The system [employer] generated this result transmitted ref erence range: 150 - 45 0 K/CU MM. The referen ce range was not u sed to interpret this result as normal/abnor mal. MPV (test code = 9.6 fL 9.4-12.3 09114-2) nRBC (test code = 413) 0 See_Comment [Aut omated message] The system [employer] generated this result transmitted ref erence range: 0 - 0 /1 00 WBC. The refere nce range was not u sed to interpret this result as normal/abnor mal. % Neutros (test code = 71 % 429) % Lymphs (test code = 27 % 430) % Monos (test code = 2 % 431) % Eos (test code = 432) 0 % % Baso (test code = 437) 0 % # Neutros (test code = 3.93 See_Comment [Aut omated message] 670) The system [employer] generated this result transmitted ref erence range: 1.56 - 6 .13 K/L. The refe rence range was not u sed to interpret this result as normal/abnor mal. # Lymphs (test code = 1.48 See_Comment [Auto mated message] 414) The system [employer] generated this result transmitted ref erence range: 1.18 - 3 .74 K/L. The refe rence range was not u sed to interpret this result as normal/abnor mal. # Monos (test code = 0.11 See_Comment L [Autom ated message] 415) The system [employer] generated this result transmitted ref erence range: 0.24 - 0 .36 K/L. The refe rence range was not u sed to interpret this result as normal/abnor mal. # Eos (test code = 416) 0.00 See_Comment L [Au tomated message] The system Volta generated this result transmitted ref erence range: 0.04 - 0 .36 K/L. The refe rence range was not u sed to interpret this result as normal/abnor mal. # Baso (test code = 417) 0.01 See_Comment [A utomated message] The system Volta generated this result transmitted ref erence range: 0.01 - 0 .08 K/L. The refe rence range was not u sed to interpret this result as normal/abnor mal. Immature 0 % 0-1 Granulocytes-Relative (test code = 2801) Lab Interpretation (test Abnormal code = 54551-1) [facility] W/PLT COUNT & AUTO [id number] 04:55:00 Test Item Value Reference Range Interpretation [...] PERCENT (BEAKER) (test code = 2801) POCT-GLUCOSE [id number] 21:41:00 Test Item Value Reference Range Interpretation Comments POC-GLUCOSE METER 123 mg/dL 70-110 H : Notified RN/MD: TESTED (BEAKER) (test code AT [facility] [address] = 1538) [facility], 770 30: Electronics Instructor/Techni kathryn ID = [id number] for ASH BRANDON Hepatitis B [id number] 19:32:00 Test Item Value Reference Range Interpretation Comments Hep B Core Total Ab Nonreactive Nonreactive (test code = 25255-3) Hep B S Ab (test <8.0 See_Comment [Automated code = 89801-9) message] The system which generated this result transmitted reference range : <8.0 mIU/mL. Th e reference range was not used to interpret this result as normal/abnormal . HBsAg Screen (test Nonreactive Nonreactive code = 5195-3) HERBIE (test code = Electronics Instructor ID - DB HERBIE) Lab Interpretation Normal (test code = 32083-7) [facility] [id number] 19:32:00 Test Item Value Reference Range Interpretation Comments HEPATITIS B CORE TOTAL ANTIBODY Nonreactive Nonreactive (BEAKER) (test code = 497) HEPATITIS B SURFACE ANTIBODY < mIU/mL <8.0 (BEAKER) (test code = 647) HEPATITIS B SURFACE ANTIGEN (2) Nonreactive Nonreactive (BEAKER) (test code = 2585) Electronics Instructor ID - DBPOCT-GLUCOSE [id number] 16:56:00 Test Item Value Reference Range Interpretation Comments POC-GLUCOSE METER 89 mg/dL 70-110 : TESTED A T [facility] 6720 (BEAKER) (test code = CARLO Lin [facility], 1538) [address]: Electronics Instructor/Techni kathryn ID = [id number] for Allen De Jesus POCT-GLUCOSE [id number] 09:04:00 Test Item Value Reference Range Interpretation Comments POC-GLUCOSE METER 105 mg/dL 70-110 : TESTED A T [facility] 6720 (BEAKER) (test code = CARLO Delia [facility], 1538) [address]: Electronics Instructor/Techni kathryn ID = [id number] for Allen Horton i Manual [id number] 06:59:00 Test Item Value Reference Range Interpretation Comments % Neutros (test code = 87 % 2816) % Lymphs (test code = 9 % 2817) % Monos (test code = 3 % 2818) % Bands (test code = 1 % 0-10 2826) # Neutros (test code = 3.83 K/ul [...] = 3438) HERBIE (test code = HERBIE) Electronics Instructor ID - Jacque Burgess comments: Slide comments: Lab Interpretation (test Abnormal code = 54480-5) [facility] W/PLT COUNT & AUTO [id number] 06:59:00 Test Item Value Reference Range Interpretation [...] CONCENTRATION Adequate (CELLAVISION)(BEAKER) (test code = 3438) Electronics Instructor ID - Jacque Burgess comments: Slide comments:BASIC METABOLIC PANEL 2020-08-04 05:27:00 Test Item Value Reference Range Interpretation Comments SODIUM (BEAKER) 128 meq/L 136-145 L (test code = 381) POTASSIUM (BEAKER) 4.5 meq/L 3.5-5.1 (test code = 379) CHLORIDE (BEAKER) 102 meq/L 98-107 (test code = 382) CO2 (BEAKER) (test 23 meq/L -29 code = 355) BLOOD UREA NITROGEN 32 mg/dL 7-21 H (BEAKER) (test code = 354) CREATININE (BEAKER) 3.34 mg/dL 0.57-1.25 H (test code = 358) GLUCOSE RANDOM 156 mg/dL 70-105 H (BEAKER) (test code = 652) CALCIUM (BEAKER) 8.1 mg/dL 8.4-10.2 L (test code = 697) EGFR (BEAKER) (test 16 mL/min/1.73 ESTIMA CHARLENE GFR IS code = 1092) sq m NOT ACCURATE CREATININE CLEARANCE IN PREDICTING GLOMERULAR FILTRATION RATE . ESTIMATED GFR I S NOT APPLICABLE FOR DIALYSIS PATIEN TS. Electronics Instructor ID - PALAK [id number] 05:01:00 Test Item Value Reference Range Interpretation Comments MAGNESIUM (BEAKER) (test code = 2.0 mg/dL 1.6-2.6 627) Electronics Instructor ID - PALAK [id number] 05:01:00 Test Item Value Reference Range Interpretation Comments PHOSPHORUS (BEAKER) (test code = 2.0 mg/dL 2.3-4.7 L 604) Electronics Instructor ID - PALAK MPOCT-GLUCOSE [id number] 21:10:00 Test Item Value Reference Range Interpretation Comments POC-GLUCOSE METER 144 mg/dL 70-110 H : Notified RN/MD: TESTED (BEAKER) [facility] [address] [facility] 1538[facility], 770 30: Electronics Instructor/Techni kathryn ID = [id number] for DOUG CHAPPELL ASH POCT-GLUCOSE [id number] 17:56:00 Test Item Value Reference Range Interpretation Comments POC-GLUCOSE METER 99 mg/dL 70-110 : TESTED A T [facility] ([facility]) (test code = [facility], 1538) [address]: Electronics Instructor/Techni kathryn ID = [id number] for EDNAJess CESIASHANTANU PoolMA POCT-GLUCOSE [id number] 08:48:00 Test Item Value Reference Range Interpretation Comments POC-GLUCOSE METER 84 mg/dL 70-110 : TESTED A T [facility] ([facility]) (test code = [facility], 1538) 68[address]: Electronics Instructor/Techni kathryn ID = [id number] for HEMAL FORD THICKET BASIC METABOLIC [id number] 04:38:00 Test Item Value Reference Range Interpretation [...] 697) EGFR (BEAKER) (test 11 mL/min/1.73 ESTIMA CHARLENE GFR IS code = 1092) sq m NOT ACCURATE CREATININE CLEARANCE IN PREDICTING GLOMERULAR FILTRATION RATE . ESTIMATED GFR I S NOT APPLICABLE FOR DIALYSIS PATIEN TS. Electronics Instructor ID - [id number] 04:34:00 Test Item Value Reference Range Interpretation Comments MAGNESIUM (BEAKER) (test code = 2.0 mg/dL 1.6-2.6 627) Electronics Instructor ID - [id number] 04:34:00 Test Item Value Reference Range Interpretation Comments PHOSPHORUS (BEAKER) (test code = 2.9 mg/dL 2.3-4.7 604) Electronics Instructor ID - EDASICBC W/PLT COUNT & AUTO [id number] 04:07:00 Test Item Value Reference Range Interpretation [...] PERCENT (BEAKER) (test code = 2801) POCT-GLUCOSE [id number] 22:16:00 Test Item Value Reference Range Interpretation Comments POC-GLUCOSE METER 107 mg/dL 70-110 : TESTED A T [facility] 6720 (BEAKER) (test code = [facility], 153) 315[address]: Electronics Instructor/Techni kathryn ID = [id number] for RANJITH FAIRCHILDELL POCT-GLUCOSE [id number] 18:11:00 Test Item Value Reference Range Interpretation Comments POC-GLUCOSE METER 99 mg/dL 70-110 : TESTED A T [facility] 6720 (BEAKER) (test code = [facility], 153) 20959: Electronics Instructor/Techni kathryn ID = [id number] for GABRIELLA BURNHAM POCT-GLUCOSE [id number] 17:37:00 Test Item Value Reference Range Interpretation Comments POC-GLUCOSE METER 96 mg/dL 70-110 : TESTED A T [facility] 6720 (BEAKER) (test code = [facility], 153) 25219: Electronics Instructor/Techni kathryn ID = [id number] for DEMAR GAN MARINESS POCT-GLUCOSE [id number] 12:34:00 Test Item Value Reference Range Interpretation Comments POC-GLUCOSE METER 105 mg/dL 70-110 : TESTED A T [facility] 6720 (BEAKER) (test code = [facility], 1538) [address]110[address]: Electronics Instructor/Techni kathryn ID = [id number] for DEMAR RAMSEY MARINESS POCT-GLUCOSE [id number] 08:26:00 Test Item Value Reference Range Interpretation Comments POC-GLUCOSE METER 126 mg/dL 70-110 H : TESTED A T [facility] 6720 (BEAKER) (test code = [facility], 1538) 68702: Electronics Instructor/Techni kathryn ID = [id number] for GABRIELLA PINEDA POCT-GLUCOSE [id number] 07:02:00 Test Item Value Reference Range Interpretation Comments POC-GLUCOSE METER 115 mg/dL 70-110 H : TESTED A T [facility] 6720 (BEAKER) (test code = [facility], 1538) 49538: Electronics Instructor/Techni kathryn ID = [id number] for HARMEET PRAJAPATI Immunoglobulin G (IgG)2020-08-02 05:27:00 Test Item Value Reference Range Interpretation Comments IgG (test code = 2465-3) 6982 mg/dL 540-1822 H HERBIE (test code = HERBIE) Electronics Instructor ALDO POWELL L Lab Interpretation (test Abnormal code = 43646-1) [facility]2020-08-02 05:27:00 Test Item Value Reference Range Interpretation Comments IMMUNOGLOBULIN G (IGG) (BEAKER) 6982 mg/dL 540-1,822 H (test code = 427) Electronics Instructor ALDO POWELL LBASIC METABOLIC [id number] 04:45:00 Test Item Value Reference Range Interpretation [...] 697) EGFR (BEAKER) (test 17 mL/min/1.73 ESTIMA CHARLENE GFR IS code = 1092) sq m NOT ACCURATE CREATININE CLEARANCE IN PREDICTING GLOMERULAR FILTRATION RATE . ESTIMATED GFR I S NOT APPLICABLE FOR DIALYSIS PATIEN TS. Electronics Instructor ID - SHERRY [id number] 04:36:00 Test Item Value Reference Range Interpretation Comments MAGNESIUM (BEAKER) 1.8 mg/dL 1.6-2.6 Specimen slightly (test code = 627) hemolyzed Electronics Instructor ID - SHERRY [id number] 04:36:00 Test Item Value Reference Range Interpretation Comments PHOSPHORUS (BEAKER) 2.7 mg/dL 2.3-4.7 Specimen slightly (test code = 604) hemolyzed Electronics Instructor ID - SHERRY LCBC W/PLT COUNT & AUTO [id number] 03:48:00 Test Item Value Reference Range Interpretation [...] PERCENT (BEAKER) (test code = 2801) HEMODIALYSIS [id number] 23:56:24James Silverio RN 08/01/2020 11:58 PMTolerated and [...] (H) 08/01/2020 CREATININE 4.55 (H) 08/01/2020 James Silverio BSN, RN II7S6- Adult Ppaytjfu892 355 6760[facility]2020-10-26 17:32:00 Test Item Value Reference Range Interpretation Comments PHOSPHORUS (BEAKER) (test code = 4.4 mg/dL 2.3-4.7 604) Electronics Instructor ID - DBOperator ID - DBPOCT-GLUCOSE [id number] 17:23:00 Test Item Value Reference Range Interpretation Comments POC-GLUCOSE METER 114 mg/dL 70-110 H : TESTED A T [facility] 6720 (BEAKER) (test code = [facility] [place], 1538) [address]: Electronics Instructor/Techni kathryn ID = [id number] for GABRIELLA PINEDA BASIC METABOLIC [id number] 16:24:00 Test Item Value Reference Range Interpretation [...] 697) EGFR (BEAKER) (test 11 mL/min/1.73 ESTIMA CHARLENE GFR IS code = 1092) sq m NOT ACCURATE CREATININE CLEARANCE IN PREDICTING GLOMERULAR FILTRATION RATE . ESTIMATED GFR I S NOT APPLICABLE FOR DIALYSIS PATIEN TS. Electronics Instructor ID - DINORAHOCT-GLUCOSE [id number] 12:58:00 Test Item Value Reference Range Interpretation Comments POC-GLUCOSE METER 112 mg/dL 70-110 H : TESTED A T [facility] 6720 (BEAKER) (test code = [facility] [place], 1538) [address]: Electronics Instructor/Techni kathryn ID = [id number] for GABRIELLA PINEDA POCT-GLUCOSE [id number] 07:53:00 Test Item Value Reference Range Interpretation Comments POC-GLUCOSE METER 108 mg/dL 70-110 : TESTED A T [facility] 6720 (BEAKER) (test code = [facility], 1538) 96173: Electronics Instructor/Techni kathryn ID = [id number] for GABRIELLA PINEDA Hepatic function [id number] 05:29:00 Test Item Value Reference Range Interpretation Comments Protein, Total (test 10.9 See_Comment H [Autom ated code = 2885-2) message] The system which generated this result transmit charlene reference range : 6.0 - 8.3 gm/dL . The reference range was not u sed to interpret th is result as normal/abnormal . Albumin (test code = 2.2 g/dL 3.5-5 L 27765-0) Total Bilirubin (test 0.3 mg/dL 0.2-1.2 code = 1975-2) Bilirubin, Direct 0.2 mg/dL 0.1-0.5 (test code = 1968-7) Alkaline Phosphatase 58 U/L 40-150 (test code = 6768-6) AST (test code = 15 U/L 5-34 1920-8) ALT (test code = 6 U/L 6-55 1742-6) HERBIE (test code = HERBIE) Electronics Instructor ID - SHERRY Trotter Lab Interpretation Abnormal (test code = 70008-9) [facility]2020-[facility]-26 05:29:00 Test Item Value Reference Range Interpretation Comments MAGNESIUM (BEAKER) (test code = 1.7 mg/dL 1.6-2.6 627) Electronics Instructor ID - SHERRY [id number] 05:29:00 Test Item Value Reference Range Interpretation Comments PHOSPHORUS (BEAKER) (test code = 1.9 mg/dL 2.3-4.7 L 604) Electronics Instructor ALDO POWELL LHEPATIC FUNCTION [id number] 05:29:00 Test Item Value Reference Range Interpretation [...] (test code = 6 U/L 6-55 347) Electronics Instructor ALDO POWELL LBASIC METABOLIC [id number] 05:29:00 Test Item Value Reference Range Interpretation [...] 697) EGFR (BEAKER) (test 13 mL/min/1.73 ESTIMA CHARLENE GFR IS code = 1092) sq m NOT ACCURATE CREATININE CLEARANCE IN PREDICTING GLOMERULAR FILTRATION RATE . ESTIMATED GFR I S NOT APPLICABLE FOR DIALYSIS PATIEN TS. Electronics Instructor ALDO - SHERRY LCBC W/PLT COUNT & AUTO [id number] 04:03:00 Test Item Value Reference Range Interpretation [...] (BEAKER) (test code = 2801) Prepare Leuko-Red [id number] 23:54:00 Test Item Value Reference Range Interpretation Comments CROSSMATCH (test code = 2264) COMPATIBLE Unit ABO (test code = B Pos 7643628) UNIT NUMBER (test code = [id number] 934-0) Status (test code = 0487629) [facility] Blood [facility] Product (test code RED BLOOD CELLS = 2263) PRODUCT CODE (test code = H8042L41 933-2) [facility] CenterPO[facility] [id number] 21:36:00 Test Item Value Reference Range Interpretation Comments POC-GLUCOSE METER 107 mg/dL 70-110 : Notified RN/MD: TESTED (BEAKER) [facility] [address] [address] = 1538) [facility], 770 30: Electronics Instructor/Techni kathryn ID = [id number] for ASH BRANDON POCT-GLUCOSE [id number] 11:38:00 Test Item Value Reference Range Interpretation Comments POC-GLUCOSE METER 115 mg/dL 70-110 H : [facility] (test code = CARLO Lin [facility], 1538) 26[address]: Electronics Instructor/Techni kathryn ID = [id number] for JAEL MARX BASIC METABOLIC [id number] 08:25:00 Test Item Value Reference Range Interpretation [...] 697) EGFR (BEAKER) (test 18 mL/min/1.73 ESTIMA CHARLENE GFR IS code = 1092) sq m NOT ACCURATE CREATININE CLEARANCE IN PREDICTING GLOMERULAR FILTRATION RATE . ESTIMATED GFR I S NOT APPLICABLE FOR DIALYSIS PATIEN TS. Electronics Instructor ID - MJ [id number] 08:13:00 Test Item Value Reference Range Interpretation Comments MAGNESIUM (BEAKER) (test code = 1.8 mg/dL 1.6-2.6 627) Electronics Instructor ID - MJ [id number] 08:13:00 Test Item Value Reference Range Interpretation Comments PHOSPHORUS (BEAKER) (test code = 2.6 mg/dL 2.3-4.7 604) Electronics Instructor ID - MJ CPOCT-GLUCOSE [id number] 07:50:00 Test Item Value Reference Range Interpretation Comments POC-GLUCOSE METER 112 mg/dL 70-110 H : TESTED A T [facility] 6720 (BEAKER) (test code = [facility], 1538) 010[address]: Electronics Instructor/Techni kathryn ID = [id number] for Arianna Acosta POCT-GLUCOSE [id number] 07:41:00 Test Item Value Reference Range Interpretation Comments POC-GLUCOSE METER 103 mg/dL 70-110 : TESTED A T [facility] 6720 (BEAKER) (test code = [facility], 153) 79697: Electronics Instructor/Techni kathryn ID = [id number] for NCHEJAEL Pool CBC W/PLT COUNT & AUTO [id number] 06:43:00 Test Item Value Reference Range Interpretation [...] PERCENT (BEAKER) (test code = 2801) POCT-GLUCOSE [id number] 21:48:00 Test Item Value Reference Range Interpretation Comments POC-GLUCOSE METER 96 mg/dL 70-110 : Notified RN/MD: TESTED (BEAKER) (test code = AT [facility] 6720 LON 0441) [facility], [facility] 30: Electronics Instructor/Techni kathryn ID = [id number] for ASH BRANDON POCT-GLUCOSE [id number] 17:10:00 Test Item Value Reference Range Interpretation Comments POC-GLUCOSE METER 109 mg/dL 70-110 : TESTED A T [place] 8686320 (BEAKER) (test code = CARLO Lin [facility], 1538) 98207: Electronics Instructor/Techni kathryn ID = [id number] for DI [place], ISSAIRIS POCT-GLUCOSE [id number] 12:25:00 Test Item Value Reference Range Interpretation Comments POC-GLUCOSE METER 91 mg/dL 70-110 : TESTED A T [facility] 6720 (BEAKER) (test code = CARLO Lin [facility], 1538) 42587: Electronics Instructor/Techni kathryn ID = [id number] for GONZALEZ , ISSAIRIS Type and screen, [id number] 09:18:00 Test Item Value Reference Range Interpretation Comments ABO/RH AUTOMATED (AKER) (test B POSITIVE code = 2260) Ab Scrn (test code = 890-4) NEGATIVE [facility] [id number] 09:01:00 Test Item Value Reference Range Interpretation Comments POC-GLUCOSE METER 95 mg/dL 70-110 : TESTED A T [facility] 6720 (BEAKER) (test code = CARLO Lin [facility], 1538) 715[address]: Electronics Instructor/Techni kathryn ID = [id number] for MICHELLE ZJAYESH VIAL Hepatitis B surface [id number] 08:29:00 Test Item Value Reference Range Interpretation Comments HBsAg Screen (test code Nonreactive Nonreactive = 5195-3) HERBIE (test code = HERBIE) Specimen is considered negative for HBsAg. Lab Interpretation (test Normal code = 18351-6) [facility] Center[facility]AT[facility] SURFACE [id number] 08:29:00 Test Item Value Reference Range Interpretation Comments HEPATITIS B SURFACE ANTIGEN (2) Nonreactive Nonreactive (BEAKER) (test code = 2585) Specimen is considered negative for HBsAg.BASIC METABOLIC [id number] 06:35:00 Test Item Value Reference Range Interpretation [...] 697) EGFR (BEAKER) (test 13 mL/min/1.73 ESTIMA CHARLENE GFR IS code = 1092) sq m NOT ACCURATE CREATININE CLEARANCE IN PREDICTING GLOMERULAR FILTRATION RATE . ESTIMATED GFR I S NOT APPLICABLE FOR DIALYSIS PATIEN TS. Electronics Instructor ID - [id number] 06:23:00 Test Item Value Reference Range Interpretation Comments MAGNESIUM (BEAKER) (test code = 1.7 mg/dL 1.6-2.6 627) Electronics Instructor ID - [id number] 06:23:00 Test Item Value Reference Range Interpretation Comments PHOSPHORUS (BEAKER) (test code = 2.5 mg/dL 2.3-4.7 604) Electronics Instructor ID - EDASICBC W/PLT COUNT & AUTO [id number] 05:51:00 Test Item Value Reference Range Interpretation [...] PERCENT (BEAKER) (test code = 2801) Viscosity, [id number] 01:10:00 Test Item Value Reference Range Interpretation Comments VISCOSITY, SERUM 2.9 See_Comment H [Automated (test code = 4490497) messag e] The system which generated this result transmitted reference range : 1.5 - 1.9 Relative to H2O . The reference range was not used to interpr et this result as normal/abnormal . HERBIE (test code = HERBIE) Performing Lab EZ [facility] [address] [place] [address] Jenna Zuñiga MD, PhD, BHARAT Lab Interpretation Abnormal (test code = 55979-0) [facility] Center[facility] [id number] 22:18:00 Test Item Value Reference Range Interpretation Comments POC-GLUCOSE METER 130 mg/dL 70-110 H : TESTED A T [facility] 6720 (BEAKER) (test code = [facility] [place], 1538) [address]: Electronics Instructor/Techni kathryn ID = [id number] for EPHRAIM OCHOA POCT-GLUCOSE [id number] 17:13:00 Test Item Value Reference Range Interpretation Comments POC-GLUCOSE METER 93 mg/dL 70-110 : TESTED A T [facility] 6720 (BEAKER) (test code = [facility], 1538) 18652: Electronics Instructor/Techni kathryn ID = [id number] for GONZALEZ , ISSAIRIS POCT-GLUCOSE [id number] 12:10:00 Test Item Value Reference Range Interpretation Comments POC-GLUCOSE METER 106 mg/dL 70-110 : TESTED A T [facility] 6720 (BEAKER) (test code = [facility], 1538) 46409: Electronics Instructor/Techni kathryn ID = [id number] for DI [place], ISSAIRIS POCT-GLUCOSE [id number] 08:10:00 Test Item Value Reference Range Interpretation Comments POC-GLUCOSE METER 111 mg/dL 70-110 H : TESTED A T [facility] 6720 (BEAKER) (test code = [facility], 1538) 90221: Electronics Instructor/Techni kathryn ID = [id number] for DI [place], ISSAIRIS BASIC METABOLIC [id number] 05:13:00 Test Item Value Reference Range Interpretation [...] 697) EGFR (BEAKER) (test 17 mL/min/1.73 ESTIMA CHARLENE GFR IS code = 1092) sq m NOT ACCURATE CREATININE CLEARANCE IN PREDICTING GLOMERULAR FILTRATION RATE . ESTIMATED GFR I S NOT APPLICABLE FOR DIALYSIS PATIEN TS. Electronics Instructor ID - [id number] 05:12:00 Test Item Value Reference Range Interpretation Comments MAGNESIUM (BEAKER) (test code = 1.8 mg/dL 1.6-2.6 627) Electronics Instructor ID - [id number] 05:12:00 Test Item Value Reference Range Interpretation Comments PHOSPHORUS (BEAKER) (test code = 2.6 mg/dL 2.3-4.7 604) Electronics Instructor ID - EDASICBC W/PLT COUNT & AUTO [id number] 04:43:00 Test Item Value Reference Range Interpretation [...] PERCENT (BEAKER) (test code = 2801) POCT-GLUCOSE [id number] 22:37:00 Test Item Value Reference Range Interpretation Comments POC-GLUCOSE METER 154 mg/dL 70-110 H : TESTED A T [facility] 6720 (BEAKER) (test code = [facility], 153) 9[address]: Electronics Instructor/Techni kathryn ID = [id number] for MELISSA LACY RANJITHELL POCT-GLUCOSE [id number] 18:26:00 Test Item Value Reference Range Interpretation Comments POC-GLUCOSE METER 136 mg/dL 70-110 H : TESTED A T [facility] 6720 (BEAKER) (test code = [facility], 153) 050[address]: Electronics Instructor/Techni kathryn ID = [id number] for MAYNOR SUAREZ GABRIELLA POCT-GLUCOSE [id number] 13:23:00 Test Item Value Reference Range Interpretation Comments POC-GLUCOSE METER 91 mg/dL 70-110 : TESTED A T [facility] 6720 (BEAKER) (test code = [facility], 153) 87296: Electronics Instructor/Techni kathryn ID = [id number] for ISAIAH SGERALDIA BASIC METABOLIC [id number] 05:59:00 Test Item Value Reference Range Interpretation [...] 697) EGFR (BEAKER) (test 11 mL/min/1.73 ESTIMA CHARLENE GFR IS code = 1092) sq m NOT ACCURATE CREATININE CLEARANCE IN PREDICTING GLOMERULAR FILTRATION RATE . ESTIMATED GFR I S NOT APPLICABLE FOR DIALYSIS PATIEN TS. Electronics Instructor ID - PALAK [id number] 05:01:00 Test Item Value Reference Range Interpretation Comments MAGNESIUM (BEAKER) (test code = 1.7 mg/dL 1.6-2.6 627) Electronics Instructor ID - PALAK [id number] 05:01:00 Test Item Value Reference Range Interpretation Comments PHOSPHORUS (BEAKER) (test code = 2.0 mg/dL 2.3-4.7 L 604) Electronics Instructor ID - PALAK MCBC W/PLT COUNT & AUTO [id number] 04:15:00 Test Item Value Reference Range Interpretation [...] (BEAKER) (test code = 2801) SARS-COV2/RT-PCR ([facility])2020-07-28 03:41:00 Test Item Value Reference Range Interpretation Comments SARS-COV2/RT-PCR (test Negative Not Detected, Negative, code = 4913108) See external report for linked test SARS-COV-2 PERFORMING LAB [facility] (test code = 9114873) Negative result for this test determines that [...] 564(g) of the Act.Fact Sheet for Healthcare Providers:https://www.seedtag/sites/default/files/product/documents/Fact_Shee v_LK_Lppjibqsh_Wfgm_ZAJK-RlZ-1.pdfFact Sheet for Healthcare Patients:https://www.seedtag/sites/default/files/product/ documents/Wrrg_Abraj_Gjkpayrf_Tlih_NHKP-QyH-9.pdfPerforming Laboratory:[facility], [place] [address]NFNO-RNISEHE METER 2020-07-27 22:30:00 Test Item Value Reference Range Interpretation Comments POC-GLUCOSE METER 127 mg/dL 70-110 H : TESTED A T [facility] [address] ([employer]) (test code = [facility], 153) [address]: Electronics Instructor/Techni kathryn ID = [id number] for TORRES LL, OSHANELL POCT-GLUCOSE [id number] 17:37:00 Test Item Value Reference Range Interpretation Comments POC-GLUCOSE METER 172 mg/dL 70-110 H : TESTED A T [facility] [address] ([employer]) (test code = [facility], 153) 39029: Electronics Instructor/Techni kathryn ID = [id number] for GERALD PINEDAIA POCT-GLUCOSE [id number] 11:40:00 Test Item Value Reference Range Interpretation Comments POC-GLUCOSE METER 100 mg/dL 70-110 : TESTED A T [facility] [address] ([employer]) (test code = CARLO [place], 1538) [address]: Electronics Instructor/Techni kathryn ID = [id number] for YANG DHILLON POCT-GLUCOSE [id number] 08:32:00 Test Item Value Reference Range Interpretation Comments POC-GLUCOSE METER 111 mg/dL 70-110 H : TESTED A T [facility] 6720 (BEAKER) (test code = CARLO Lin [facility], 1538) 15091: Electronics Instructor/Techni kathryn ID = [id number] for YANG DHILLON [id number] 05:19:00 Test Item Value Reference Range Interpretation Comments PHOSPHORUS (BEAKER) (test code = 1.4 mg/dL 2.3-4.7 LL 604) Electronics Instructor ID - EDASIBASIC METABOLIC [id number] 04:59:00 Test Item Value Reference Range Interpretation [...] 697) EGFR (BEAKER) (test 15 mL/min/1.73 ESTIMA CHARLENE GFR IS code = 1092) sq m NOT ACCURATE CREATININE CLEARANCE IN PREDICTING GLOMERULAR FILTRATION RATE . ESTIMATED GFR I S NOT APPLICABLE FOR DIALYSIS PATIEN TS. Electronics Instructor ID - [id number] 04:55:00 Test Item Value Reference Range Interpretation Comments MAGNESIUM (BEAKER) (test code = 1.6 mg/dL 1.6-2.6 627) Electronics Instructor ID - EDASICBC W/PLT COUNT & AUTO [id number] 04:12:00 Test Item Value Reference Range Interpretation [...] 417) IMMATURE GRANULOCYTES-RELATIVE 0 % 0-1 PERCENT ([facility]) (test code = 2801) POCT-GLUCOSE [id number] 21:50:00 Test Item Value Reference Range Interpretation Comments POC-GLUCOSE METER 108 mg/dL 70-110 : Notified RN/MD: TESTED ([facility]) [facility] [address] = 1538[facility], 770 30: Electronics Instructor/Techni kathryn ID = [id number] for ASH BRANDON POCT-GLUCOSE [id number] 17:01:00 Test Item Value Reference Range Interpretation Comments POC-GLUCOSE METER 92 mg/dL 70-110 : TESTED A T [facility] 67[facility] ([facility]) (test code = SADESHORTY Lin [facility], 1538) 76082: Electronics Instructor/Techni kathryn ID = [id number] for JAEL CARIAS POCT-GLUCOSE [id number] 12:07:00 Test Item Value Reference Range Interpretation Comments POC-GLUCOSE METER 117 mg/dL 70-110 H : [facility] (test code = CARLO Lin [facility], 1538) 05475: Electronics Instructor/Techni kathryn ID = [id number] for YANG ELMORE (V)YASEMIN HEMODIALYSIS [id number] 12:00:00Yasemin Pedraza RN 07/27/2020 10:17 AMLab Results [...] other than chronic confusion. Yasemin Pedraza RNCHI [facility] [id number] 08:19:00 Test Item Value Reference Range Interpretation Comments POC-GLUCOSE METER 112 mg/dL 70-110 H : TESTED A T [facility] 6720 (BEAKER) (test code = CARLO JASSO [place], 1538) 9[address]: Electronics Instructor/Techni kathryn ID = [id number] for SA NCROHIT, JAEL [id number] 06:19:00 Test Item Value Reference Range Interpretation Comments PHOSPHORUS (BEAKER) 1.4 mg/dL 2.3-4.7 LL Specimen slightly (test code = 604) hemolyzed Electronics Instructor ID - PIAYA LBASIC METABOLIC [id number] 06:14:00 Test Item Value Reference Range Interpretation [...] 697) EGFR (BEAKER) (test 11 mL/min/1.73 ESTIMA CHARLENE GFR IS code = 1092) sq m NOT ACCURATE CREATININE CLEARANCE IN PREDICTING GLOMERULAR FILTRATION RATE . ESTIMATED GFR I S NOT APPLICABLE FOR DIALYSIS PATIEN TS. Electronics Instructor ID - PIAYA [id number] 06:13:00 Test Item Value Reference Range Interpretation Comments MAGNESIUM (BEAKER) 1.6 mg/dL 1.6-2.6 Specimen slightly (test code = 627) hemolyzed Electronics Instructor ID - PIAYA LCBC W/PLT COUNT & AUTO [id number] 05:46:00 Test Item Value Reference Range Interpretation [...] (test code = 416) BASOPHILS ABSOLUTE COUNT (AKER) 0.01 K/ L 0.01-0.08 (test code = 417) IMMATURE GRANULOCYTES-RELATIVE 0 % 0-1 PERCENT (BEAKER) (test code = 2801) POCT-GLUCOSE [id number] 21:31:00 Test Item Value Reference Range Interpretation Comments POC-GLUCOSE METER 108 mg/dL 70-110 : TESTED A T [facility] 6720 (BEAKER) (test code = [facility], 1538) 62182: Electronics Instructor/Techni kathryn ID = [id number] for Wi lliams, Otelia POCT-GLUCOSE [id number] 17:09:00 Test Item Value Reference Range Interpretation Comments POC-GLUCOSE METER 111 mg/dL 70-110 H : TESTED A T [facility] 6720 ([facility]) (test code = [facility], 1538) 45418: Electronics Instructor/Techni kathryn ID = [id number] for OR PHEY, KEV POCT-GLUCOSE [id number] 12:18:00 Test Item Value Reference Range Interpretation Comments POC-GLUCOSE METER 113 mg/dL 70-110 H : TESTED A T [facility] 6720 ([facility]) (test code = [facility], 1538) 44942: Electronics Instructor/Techni kathryn ID = [id number] for OR PHEY, KEV Antibody [id number] 11:27:00 Test Item Value Reference Range Interpretation Comments Ab Scrn (test code = 890-4) NEGATIVE [facility], [id number] 10:36:00 Test Item Value Reference Range Interpretation Comments ABO Grouping (test code = 2588) B Rh Factor (test code = 2589) POS [facility] [id number] 08:10:00 Test Item Value Reference Range Interpretation Comments POC-GLUCOSE METER 96 mg/dL 70-110 : TESTED A T [facility] 6720 (BEAKER) (test code = [facility], 1538) 67958: Electronics Instructor/Techni kathryn ID = [id number] for ORPH EY, KEV IMMUNOGLOBULIN G (IGG)2020-07-25 06:59:00 Test Item Value Reference Range Interpretation Comments IMMUNOGLOBULIN G (IGG) (BEAKER) 7189 mg/dL 540-1,822 H (test code = 427) Electronics Instructor ID - DBOperator ID - DBBASIC METABOLIC [id number] 05:53:00 Test Item Value Reference Range Interpretation [...] 697) EGFR (BEAKER) (test 15 mL/min/1.73 ESTIMA CHARLENE GFR IS code = 1092) sq m NOT ACCURATE CREATININE CLEARANCE IN PREDICTING GLOMERULAR FILTRATION RATE . ESTIMATED GFR I S NOT APPLICABLE FOR DIALYSIS PATIEN TS. Electronics Instructor ID - [id number] 05:52:00 Test Item Value Reference Range Interpretation Comments MAGNESIUM (BEAKER) (test code = 1.4 mg/dL 1.6-2.6 L 627) Electronics Instructor ID - [id number] 05:52:00 Test Item Value Reference Range Interpretation Comments PHOSPHORUS (BEAKER) (test code = 1.9 mg/dL 2.3-4.7 L 604) Electronics Instructor ID - EDASICBC W/PLT COUNT & AUTO [id number] 05:08:00 Test Item Value Reference Range Interpretation [...] PERCENT (BEAKER) (test code = 2801) POCT-GLUCOSE [id number] 23:04:00 Test Item Value Reference Range Interpretation Comments POC-GLUCOSE METER 91 mg/dL 70-110 : TESTED A T [facility] 6720 (BEAKER) (test code = CARLO JASSO [place], 1538) 14011: Electronics Instructor/Techni kathryn ID = [id number] for DREA GARCIA POCT-GLUCOSE [id number] 18:01:00 Test Item Value Reference Range Interpretation Comments POC-GLUCOSE METER 105 mg/dL 70-110 : TESTED A T [facility] 6720 (BEAKER) (test code = [facility], 1538) 83847: Electronics Instructor/Techni kathryn ID = [id number] for GABRIELLA PINEDA POCT-GLUCOSE [id number] 14:04:00 Test Item Value Reference Range Interpretation Comments POC-GLUCOSE METER 105 mg/dL 70-110 : TESTED A T [facility] 6720 (BEAKER) (test code = [facility], 1538) 00500: Electronics Instructor/Techni kathryn ID = [id number] for GABRIELLA PINEDA POCT-GLUCOSE [id number] 08:48:00 Test Item Value Reference Range Interpretation Comments POC-GLUCOSE METER 109 mg/dL 70-110 : TESTED A T [facility] 6720 (BEAKER) (test code = [facility], 1538) 95354: Electronics Instructor/Techni kathryn ID = [id number] for GABRIELLA PINEDA [id number] 06:47:00 Test Item Value Reference Range Interpretation Comments PHOSPHORUS (BEAKER) (test code = 1.1 mg/dL 2.3-4.7 LL 604) Electronics Instructor ID - EDASIHEPATIC FUNCTION [id number] 06:41:00 Test Item Value Reference Range Interpretation [...] code = < U/L 6-55 L 347) Electronics Instructor ID - EDASIBASIC METABOLIC [id number] 06:36:00 Test Item Value Reference Range Interpretation [...] 697) EGFR (BEAKER) (test 24 mL/min/1.73 ESTIMA CHARLENE GFR IS code = 1092) sq m NOT ACCURATE CREATININE CLEARANCE IN PREDICTING GLOMERULAR FILTRATION RATE . ESTIMATED GFR I S NOT APPLICABLE FOR DIALYSIS PATIEN TS. Electronics Instructor ID - [id number] 06:34:00 Test Item Value Reference Range Interpretation Comments MAGNESIUM (BEAKER) (test code = 1.5 mg/dL 1.6-2.6 L 627) Electronics Instructor ID - EDASICBC W/PLT COUNT & AUTO [id number] 06:19:00 Test Item Value Reference Range Interpretation [...] PERCENT (BEAKER) (test code = 2801) POCT-GLUCOSE [id number] 21:37:00 Test Item Value Reference Range Interpretation Comments POC-GLUCOSE METER 141 mg/dL 70-110 H : TESTED A T [facility] (BEAKER) (test code = CARLO Lin [facility], 1538) 52547: Electronics Instructor/Techni kathryn ID = [id number] for DREA FAIRCHILD HEMODIALYSIS [id number] 20:06:35Venancio Dominique RN 07/23/2020 8:07 PMPatient tolerated [...] Lab Results Component Value Date HEPBSAG Nonreactive 07/05/2020[facility] [id number] 12:13:00 Test Item Value Reference Range Interpretation Comments POC-GLUCOSE METER 92 mg/dL 70-110 : TESTED A T [facility] 6720 (BEAKER) (test code = CARLO Lin [facility], 1538) 13995: Electronics Instructor/Techni kathryn ID = [id number] for BRINA GONZALEZ POCT-GLUCOSE [id number] 08:15:00 Test Item Value Reference Range Interpretation Comments POC-GLUCOSE METER 72 mg/dL 70-110 : TESTED A T [facility] 6720 (BEAKER) (test code = [employer] Delia [facility], 1538) 75358: Electronics Instructor/Techni kathryn ID = [id number] for BRINA GONZALEZ ECG 12 [id number] 07:05:58Interface, External Ris In - 07/23/2020 7:06 AM CDTVentricular Rate 70 BPMAtrial Rate 70 BPMP-R Interval 110 msQRS Duration 100 msQ-T Interval 460 msQTC Calculation(Bazett) 496 msP [place] 40 degreesR [place] 35 degreesT [place] 62 degreesSinus rhythm with short PRT wave inversion V3-V4 consider postischemic changesProlonged QTAbnormal ECGWhen compared with ECG of 16-JUL-2020 16:17,T waves are no longer negative in V1-D2Pbbuuevgy by MD BRADLEY, EMERALD (190) on 07/23/2020 7:05:52 [facility] [id number] 05:42:00 Test Item Value Reference Range Interpretation [...] 697) EGFR (BEAKER) (test 16 mL/min/1.73 ESTIMA CHARLENE GFR IS code = 1092) sq m NOT ACCURATE CREATININE CLEARANCE IN PREDICTING GLOMERULAR FILTRATION RATE . ESTIMATED GFR I S NOT APPLICABLE FOR DIALYSIS PATIEN TS. Electronics Instructor ID - [id number] 05:41:00 Test Item Value Reference Range Interpretation Comments MAGNESIUM (BEAKER) (test code = 1.6 mg/dL 1.6-2.6 627) Electronics Instructor ID - [id number] 05:41:00 Test Item Value Reference Range Interpretation Comments PHOSPHORUS (BEAKER) (test code = 2.2 mg/dL 2.3-4.7 L 604) Electronics Instructor ID - EDASICBC W/PLT COUNT & AUTO [id number] 04:44:00 Test Item Value Reference Range Interpretation [...] PERCENT (BEAKER) (test code = 2801) POCT-GLUCOSE [id number] 21:42:00 Test Item Value Reference Range Interpretation Comments POC-GLUCOSE METER 89 mg/dL 70-110 : TESTED A T [facility] 6720 (BEAKER) ([facility] = [facility] 153) 14832: Electronics Instructor/Techni kathryn ID = [id number] for RANJITH GARCIAMAXWELL POCT-GLUCOSE [id number] 17:11:00 Test Item Value Reference Range Interpretation Comments POC-GLUCOSE METER 91 mg/dL 70-110 : TESTED A T [facility] 6720 (BEAKER) (test code = [facility], 1538) 93059: Electronics Instructor/Techni kathryn ID = [id number] for JAIM E KILLIAN, SONIA POCT-GLUCOSE [id number] 12:29:00 Test Item Value Reference Range Interpretation Comments POC-GLUCOSE METER 107 mg/dL 70-110 : TESTED A T [facility] 6720 (BEAKER) (test code [facility], = 1538) 86867: Electronics Instructor/Techni kathryn ID = [id number] for JAIM E KILLIAN, SONIA POCT-GLUCOSE [id number] 08:03:00 Test Item Value Reference Range Interpretation Comments POC-GLUCOSE METER 127 mg/dL 70-110 H : TESTED A T [facility] 6720 (BEAKER) (test code [facility], = 1538) 32401: Electronics Instructor/Techni kathryn ID = [id number] for JAIM E KILLIAN, SONIA BASIC METABOLIC [id number] 06:20:00 Test Item Value Reference Range Interpretation [...] 697) EGFR (BEAKER) (test 28 mL/min/1.73 ESTIMA CHARLENE GFR IS code = 1092) sq m NOT ACCURATE CREATININE CLEARANCE IN PREDICTING GLOMERULAR FILTRATION RATE . ESTIMATED GFR I S NOT APPLICABLE FOR DIALYSIS PATIEN TS. Electronics Instructor ID - [id number] 06:09:00 Test Item Value Reference Range Interpretation Comments MAGNESIUM (BEAKER) (test code = 1.7 mg/dL 1.6-2.6 627) Electronics Instructor ID - [id number] 06:09:00 Test Item Value Reference Range Interpretation Comments PHOSPHORUS (BEAKER) (test code = 2.0 mg/dL 2.3-4.7 L 604) Electronics Instructor ID - EDASICBC W/PLT COUNT & AUTO [id number] 05:37:00 Test Item Value Reference Range Interpretation [...] PERCENT (BEAKER) (test code = 2801) HEMODIALYSIS [id number] 23:12:34James Silverio RN 07/21/2020 11:16 PMTolerated and [...] (H) 07/21/2020 James VILLAFUERTE, RN II7S6- Adult [address] [place], [place] [address]POCT-GLUCOSE [id number] 23:04:00 Test Item Value Reference Range Interpretation Comments POC-GLUCOSE METER 146 mg/dL 70-110 H : TESTED A T [facility] 6720 (BEAKER) (test code = CARLO JASSO [place], 1538) 6[address]: Electronics Instructor/Techni kathryn ID = [id number] for James Enciso POCT-GLUCOSE [id number] 23:00:00 Test Item Value Reference Range Interpretation Comments POC-GLUCOSE METER 60 mg/dL 70-110 L : TESTED A T [facility] 6720 (BEAKER) (test code = CARLO [place], 1538) 00329: Electronics Instructor/Techni kathryn ID = [id number] for [place] arce, James POCT-GLUCOSE [id number] 18:02:00 Test Item Value Reference Range Interpretation Comments POC-GLUCOSE METER 97 mg/dL 70-110 : TESTED A T [facility] 6720 (BEAKER) (test code = [facility], [employer]) 85444: Electronics Instructor/Techni kathryn ID = [id number] for OJED A, JOS POCT-GLUCOSE [id number] 17:11:00 Test Item Value Reference Range Interpretation Comments POC-GLUCOSE METER 65 mg/dL 70-110 L : TESTED A T [facility] 6720 (BEAKER) (test code = [facility], [employer]) 37005: Electronics Instructor/Techni kathryn ID = [id number] for OJED A, JOS POCT-GLUCOSE [id number] 13:15:00 Test Item Value Reference Range Interpretation Comments POC-GLUCOSE METER 104 mg/dL 70-110 : TESTED A T [facility] 6720 (BEAKER) (test code = [facility], [employer]) 26001: Electronics Instructor/Techni kathryn ID = [id number] for YASIR GALVAN, JOSE ANTONIO POCT-GLUCOSE [id number] 12:38:00 Test Item Value Reference Range Interpretation Comments POC-GLUCOSE METER 69 mg/dL 70-110 L : TESTED A T [facility] 6720 (BEAKER) (test code = [facility], [employer]) 53153: Electronics Instructor/Techni kathryn ID = [id number] for ISAIAH S GABRIELLA POCT-GLUCOSE [id number] 08:31:00 Test Item Value Reference Range Interpretation Comments POC-GLUCOSE METER 98 mg/dL 70-110 : TESTED A T [facility] 6720 (BEAKER) (test code = [facility], [employer]) 66801: Electronics Instructor/Techni kathryn ID = [id number] for OJED A, JOS [id number] 05:21:00 Test Item Value Reference Interpretation Comments Range Protime (test code = 17.4 See_Comment H [Autom ated 5902-2) message] The system which generated this result transmitted reference range : 11.9 - 14.2 seconds. The reference range was not used to interpret this result as normal/abnormal . INR (test code = 1.47 See_Comment [Automated 6026-6) message] The system which generated this result transmitted reference range : <=5.90. The reference range was not used to interpret this result as normal/abnormal . PTT (test code = 25.2 See_Comment [Automated 66859-1) message] The system which generated this result transmitted reference range : 22.5 - 36.0 seconds. The reference range was not used to interpret this result as normal/abnormal . HERBIE (test code = Effective 03/04/2019: HERBIE) PT Reference Range ChangeNew: 11.9-14.2 Previous: 11.7-14.7 RECOMMENDED COUMADIN/WARFARIN INR THERAPY RANGESSTANDARD DOSE: 2.0-3.0 Includes: PROPHYLAXIS for venous thrombosis, systemic embolization; TREATMENT for venous thrombosis and/or pulmonary embolus.HIGH RISK: Target INR is 2.5-3.5 for patients wiht mechanical heart valves. Lab Interpretation Abnormal (test code = 53588-8) [facility] CenterPT/[id number] 05:21:00 Test Item Value Reference Range Interpretation [...] for patients wiht mechanical heart valves.BASIC METABOLIC [id number] 05:20:00 Test Item Value Reference Range Interpretation [...] 697) EGFR (BEAKER) (test 12 mL/min/1.73 ESTIMA CHARLENE GFR IS code = 1092) sq m NOT ACCURATE CREATININE CLEARANCE IN PREDICTING GLOMERULAR FILTRATION RATE . ESTIMATED GFR I S NOT APPLICABLE FOR DIALYSIS PATIEN TS. Electronics Instructor ID - PALAK [id number] 05:18:00 Test Item Value Reference Range Interpretation Comments MAGNESIUM (BEAKER) (test code = 1.7 mg/dL 1.6-2.6 627) Electronics Instructor ID - PALAK [id number] 05:18:00 Test Item Value Reference Range Interpretation Comments PHOSPHORUS (BEAKER) (test code = 2.7 mg/dL 2.3-4.7 604) Electronics Instructor ID - PALAK MCBC W/PLT COUNT & AUTO [id number] 05:09:00 Test Item Value Reference Range Interpretation [...] PERCENT (BEAKER) (test code = 2801) POCT-GLUCOSE [id number] 16:51:00 Test Item Value Reference Range Interpretation Comments POC-GLUCOSE METER 82 mg/dL 70-110 : TESTED A T [facility] 6720 (BEAKER) (test code = CARLO Lin [facility], 1538) 61818: Electronics Instructor/Techni kathryn ID = [id number] for SUKHWINDER BURNHAM SARS-COV2/RT-PCR ([facility])2020-07-20 13:31:00 Test Item Value Reference Range Interpretation Comments SARS-COV2/RT-PCR (test Negative Not Detected, Negative, code = 4912089) See external report for linked test SARS-COV-2 PERFORMING LAB [facility] CASSANDRA (test code = 3823334) Negative result for this test determines that [...] 564(g) of the Act.Fact Sheet for Healthcare Providers:https://www.Helijia.RingMD/sites/default/files/product/documents/Fact_Shee v_IW_Cdvgkuxwz_Oyoh_TUKV-FpK-0.pdfFact Sheet for Healthcare Patients:https://www.Helijia.RingMD/sites/default/files/product/ documents/Bbvt_Litjz_Cppljjmv_Jmof_CDPN-MxQ-7.pdfPerforming Laboratory:[facility], [place] [address]ZGYE-WOZGQEA METER 2020-07-20 12:19:00 Test Item Value Reference Range Interpretation Comments POC-GLUCOSE METER 87 mg/dL 70-110 : TESTED A T [facility] 6720 (DOM) (test code = CARLO Lin [facility], 1538) 17109: Electronics Instructor/Techni kathryn ID = [id number] for SUKHWINDER BURNHAM POCT-GLUCOSE [id number] 09:19:00 Test Item Value Reference Range Interpretation Comments POC-GLUCOSE METER 114 mg/dL 70-110 H : TESTED A T [facility] 6720 (BEAKER) ([facility], = 1538) 00468: Electronics Instructor/Techni kathryn ID = [id number] for JETHRO DIALLO IMMUNOGLOBULIN G (IGG)2020-07-20 04:58:00 Test Item Value Reference Range Interpretation Comments IMMUNOGLOBULIN G (IGG) (BEAKER) 9540 mg/dL 540-1,822 H (test code = 427) Electronics Instructor ID - PALAK MOperator ID - PALAK MBASIC METABOLIC [id number] 04:25:00 Test Item Value Reference Range Interpretation [...] 697) EGFR (BEAKER) (test 19 mL/min/1.73 ESTIMA CHARLENE GFR IS code = 1092) sq m NOT ACCURATE CREATININE CLEARANCE IN PREDICTING GLOMERULAR FILTRATION RATE . ESTIMATED GFR I S NOT APPLICABLE FOR DIALYSIS PATIEN TS. Electronics Instructor ID - PALAK [id number] 04:16:00 Test Item Value Reference Range Interpretation Comments MAGNESIUM (BEAKER) (test code = 1.5 mg/dL 1.6-2.6 L 627) Electronics Instructor ID - PALAK [id number] 04:16:00 Test Item Value Reference Range Interpretation Comments PHOSPHORUS (BEAKER) (test code = 2.3 mg/dL 2.3-4.7 604) Electronics Instructor ID - PALAK MCBC W/PLT COUNT & AUTO [id number] 03:48:00 Test Item Value Reference Range Interpretation [...] PERCENT (BEAKER) (test code = 2801) POCT-GLUCOSE [id number] 18:26:00 Test Item Value Reference Range Interpretation Comments POC-GLUCOSE METER 151 mg/dL 70-110 H : TESTED A T [facility] 6720 (BEAKER) (test code = [facility], 1538) 37303: Electronics Instructor/Techni kathryn ID = [id number] for CARDOZA BLET, DOUG POCT-GLUCOSE [id number] 18:24:00 Test Item Value Reference Range Interpretation Comments POC-GLUCOSE METER 68 mg/dL 70-110 L : TESTED A T [facility] 6720 (BEAKER) (test code = [facility], [facility]8) 54663: Electronics Instructor/Techni kathryn ID = [id number] for GARC IA, CASSIDY POCT-GLUCOSE [id number] 17:05:00 Test Item Value Reference Range Interpretation Comments POC-GLUCOSE METER 68 mg/dL 70-110 L : [facility] T [facility] (test code = [facility], 1538) 06884: Electronics Instructor/Techni kathryn ID = [id number] for SUBL ET, DOUG POCT-GLUCOSE [id number] 11:37:00 Test Item Value Reference Range Interpretation Comments POC-GLUCOSE METER 93 mg/dL 70-110 : [facility] A T [facility] 67[facility] (test code = [facility], 1538) 92105: Electronics Instructor/Techni kathryn ID = [id number] for STOJ CIC, NADA POCT-GLUCOSE [id number] 08:03:00 Test Item Value Reference Range Interpretation Comments POC-GLUCOSE METER 100 mg/dL 70-110 : TESTED A T [facility] 6720 (BEAKER) (test code = [facility], 1538) 08732: Electronics Instructor/Techni kathryn ID = [id number] for CARDOZA BLET, DOUG BASIC METABOLIC [id number] 04:24:00 Test Item Value Reference Range Interpretation [...] 697) EGFR (BEAKER) (test 14 mL/min/1.73 ESTIMA CHARLENE GFR IS code = 1092) sq m NOT ACCURATE CREATININE CLEARANCE IN PREDICTING GLOMERULAR FILTRATION RATE . ESTIMATED GFR I S NOT APPLICABLE FOR DIALYSIS PATIEN TS. Electronics Instructor ID - [id number] 04:13:00 Test Item Value Reference Range Interpretation Comments MAGNESIUM (BEAKER) (test code = 1.5 mg/dL 1.6-2.6 L 627) Electronics Instructor ID - [id number] 04:13:00 Test Item Value Reference Range Interpretation Comments PHOSPHORUS (BEAKER) (test code = 2.5 mg/dL 2.3-4.7 604) Electronics Instructor ID - EDASICBC W/PLT COUNT & AUTO [id number] 04:02:00 Test Item Value Reference Range Interpretation [...] Comments WBC (test code = 6690-2) 5.7 See_Comment [A utomated message] The system [employer] generated this result transmitted ref erence range: 3.5 - 10 .5 K/L. The refe rence range was not u sed to interpret this result as normal/abnor mal. RBC (test code = 789-8) 2.96 See_Comment L [Au tomated message] The system [employer] generated this result transmitted ref erence range: 3.93 - 5 .22 M/L. The refe rence range was not u sed to interpret this result as normal/abnor mal. MCHC (test code = 786-4) 32.0 See_Comment L [A utomated message] The system [employer] generated this result transmitted ref erence range: 32.2 - 3 5.5 GM/DL. The refe rence range was not u sed to interpret this result as normal/abnor mal. Hematocrit (test code = 25.9 % 34.1-44.9 L 4544-3) MCV (test code = 787-2) 87.5 fL 79.4-94.8 MCH (test code = 785-6) 28.0 pg 25.6-32.2 RDW (test code = 788-0) 17.3 % 11.7-14.4 H Platelets (test code = 183 See_Comment [Aut omated message] 777-3) The system [employer] generated this result transmitted ref erence range: 150 - 45 0 K/CU MM. The referen ce range was not u sed to interpret this result as normal/abnor mal. MPV (test code = 10.7 fL 9.4-12.3 74194-8) nRBC (test code = 413) 0 See_Comment [Aut omated message] The system [employer] generated this result transmitted ref erence range: 0 - 0 /1 00 WBC. The refere nce range was not u sed to interpret this result as normal/abnor mal. Lab Interpretation (test Abnormal code = 45027-4) [facility] (HEMOGRAM ONLY)2020-07-19 03:51:00 Test Item Value Reference [...] 0-0 (BEAKER) (test code = 413) POCT-GLUCOSE [id number] 23:52:00 Test Item Value Reference Range Interpretation Comments POC-GLUCOSE METER 70 mg/dL 70-110 : TESTED A T [facility] 6720 (BEAKER) (test code = CARLO Lin [facility], 1538) 24361: Electronics Instructor/Techni kathryn ID = [id number] for Venancio Khan HEMODIALYSIS [id number] 23:00:00James Silverio RN 07/18/2020 11:47 PMTolerated and [...] (H) 07/18/2020 James VILLAFUERTE, RN II7S6- Adult [id number] 355 8309[facility] [id number] 16:52:00 Test Item Value Reference Range Interpretation Comments POC-GLUCOSE METER 75 mg/dL 70-110 : TESTED A T [facility] 6720 (BEAKER) (test code = CARLO Lin [facility], 1538) 98612: Electronics Instructor/Techni kathryn ID = [id number] for JETHRO DIALLO POCT-GLUCOSE [id number] 12:21:00 Test Item Value Reference Range Interpretation Comments POC-GLUCOSE METER 75 mg/dL 70-110 : TESTED A T [facility] 6720 (DOM) (test code = CARLO Lin [facility], 1538) 68501: Electronics Instructor/Techni kathryn ID = [id number] for MEGAN SNAOMIRIDebbie ANG, TUNNELED CATHETER [id number] 11:50:00FINAL REPORT PROCEDURE: Tunneled hemodialysis catheter Placement CLINICAL HISTORY: esrd V/STOL LANDING SIGNAL OFFICER: Jayden Stubbs DO, JD ANESTHESIA: Conscious sedation [...] vena cava. Under fluoroscopic guidance, a 15 Thai peel-away sheath was advanced overthe wire. I [...] Stubbs MDReport Verified Date/Time:07/18/2020 11:50:32 Reading Location: [place] [address] Angio Body Reading Room IR Tunneled Catheter [id number] 11:50:00Interface, External Ris In - 07/18/2020 12:02 PM CDTFINAL REPORT PROCEDURE: Tunneled hemodialysis catheter Placement CLINICAL HISTORY: esrd V/STOL LANDING SIGNAL OFFICER: Jayden Stubbs DO, JD ANESTHESIA: Conscious sedation [...] vena cava. Under fluoroscopic guidance, a 15 Thai peel-away sheath was advanced over the wire. [...] MDReport Verified Date/Time: 07/18/2020 11:50:32 Reading Location: [address] Body [id number] 09:02:00 Test Item Value Reference Range Interpretation [...] for patients wiht mechanical heart valves.BASIC METABOLIC [id number] 07:52:00 Test Item Value Reference Range Interpretation [...] S NOT APPLICABLE FOR DIALYSIS PATIEN TS. Electronics Instructor ID - PALAK [id number] 07:50:00 Test Item Value Reference Range Interpretation Comments MAGNESIUM (BEAKER) (test code = 1.8 mg/dL 1.6-2.6 627) Electronics Instructor ID - PALAK [id number] 07:50:00 Test Item Value Reference Range Interpretation Comments PHOSPHORUS (BEAKER) (test code = 5.0 mg/dL 2.3-4.7 H 604) Electronics Instructor ID - PALAK MPOCT-GLUCOSE [id number] 07:28:00 Test Item Value Reference Range Interpretation Comments POC-GLUCOSE METER 50 mg/dL 70-110 L : TESTED A T [facility] 6720 (BEAKER) (test code = [place]Y [place], 1538) 09860: Electronics Instructor/Techni kathryn ID = [id number] for JETHRO DIALLO CBC W/PLT COUNT & AUTO [id number] 07:08:00 Test Item Value Reference Range Interpretation [...] PERCENT (BEAKER) (test code = 2801) POCT-GLUCOSE [id number] 21:23:00 Test Item Value Reference Range Interpretation Comments POC-GLUCOSE METER 102 mg/dL 70-110 : TESTED A T [facility] 6720 (BEAKER) (test code = CARLO [place], 1538) 02377: Electronics Instructor/Techni kathryn ID = [id number] for EASTON SALEH BASIC METABOLIC [id number] 17:33:00 Test Item Value Reference Range Interpretation [...] S NOT APPLICABLE FOR DIALYSIS PATIEN TS. Electronics Instructor ID - RMPOCT-GLUCOSE [id number] 17:16:00 Test Item Value Reference Range Interpretation Comments POC-GLUCOSE METER 97 mg/dL 70-110 : TESTED A T [facility] 6720 (BECogito) (test code = [facility], 153) 25751: Electronics Instructor/Techni kathryn ID = [id number] for SHASHI AGUILAR POCT-GLUCOSE [id number] 12:06:00 Test Item Value Reference Range Interpretation Comments POC-GLUCOSE METER 76 mg/dL 70-110 : TESTED A T [facility] 6720 (BEAKER) (test code = [facility], 1538) 50095: Electronics Instructor/Techni kathryn ID = [id number] for TEZE NO, TEO POCT-GLUCOSE [id number] 07:36:00 Test Item Value Reference Range Interpretation Comments POC-GLUCOSE METER 63 mg/dL 70-110 L : TESTED A T [facility] 6720 (BEAKER) (test code = [facility], 1538) 95124: Electronics Instructor/Techni kathryn ID = [id number] for TEZE NO, TEO Comprehensive metabolic [id number] 06:16:00 Test Item Value Reference Range Interpretation Comments Protein, Total (test 14.0 See_Comment H [Autom ated code = 2885-2) message] The system which generated this result transmit charlene reference range : 6.0 - 8.3 gm/dL . The reference range was not u sed to interpret th is result as normal/abnormal . Albumin (test code = 2.6 g/dL 3.5-5 L 29680-9) Alkaline Phosphatase 43 U/L 40-150 (test code = 6768-6) Total Bilirubin (test 0.4 mg/dL 0.2-1.2 code = 1975-2) Sodium (test code = 127 meq/L 136-145 L 2951-2) Potassium (test code 4.1 meq/L 3.5-5.1 = 2823-3) Chloride (test code = 101 meq/L 98-107 2075-0) CO2 (test code = 21 meq/L 22-29 L 2028-9) BUN (test code = 38 mg/dL 7-21 H 3094-0) Creatinine (test code 6.38 mg/dL 0.57-1.25 H = 2160-0) Glucose (test code = 65 mg/dL 70-105 L 2345-7) Calcium (test code = 6.9 mg/dL 8.4-10.2 L 69724-9) AST (test code = 18 U/L 5-34 1920-8) ALT (test code = 10 U/L 6-55 1742-6) EGFR (test code = 8 mL/min/1.73 [place] [address]-9) NOT ACCURATE CREATININE CLEARANCE IN PREDICTING GLOMERULAR FILTRATION RATE . ESTIMATED GFR I S NOT APPLICABLE FOR DIALYSIS PATIEN TSSkyla HERBIE (test code = HERBIE) Electronics Instructor ID - PIAYA L Lab Interpretation Abnormal (test code = 61842-9) [facility] CenterCOMPREHENSIVE MET[facility]OLIC [id number] 06:16:00 Test Item Value Reference Range Interpretation [...] S NOT APPLICABLE FOR DIALYSIS PATIEN TS. Electronics Instructor ID - SHERRY [id number] 06:15:00 Test Item Value Reference Range Interpretation Comments MAGNESIUM (BEAKER) (test code = 1.8 mg/dL 1.6-2.6 627) Electronics Instructor ID - SHERRY [id number] 06:15:00 Test Item Value Reference Range Interpretation Comments PHOSPHORUS (BEAKER) (test code = 4.7 mg/dL 2.3-4.7 604) Electronics Instructor ID - PIMARGARITA LCBC W/PLT COUNT & AUTO [id number] 05:58:00 Test Item Value Reference Range Interpretation [...] PERCENT (BEAKER) (test code = 2801) POCT-GLUCOSE [id number] 23:49:00 Test Item Value Reference Range Interpretation Comments POC-GLUCOSE METER 78 mg/dL 70-110 : TESTED Debbie Lewis [facility] 6720 (BEAKER) (test code = CARLO [place], 1538) 34825: Electronics Instructor/Techni kathryn ID = [id number] for JAN FARIAS POCT-GLUCOSE [id number] 16:46:00 Test Item Value Reference Range Interpretation Comments POC-GLUCOSE METER 84 mg/dL 70-110 : TESTED A T [facility] 6720 (BEAKER) (test code = [facility], 1538) 57288: Electronics Instructor/Techni kathryn ID = [id number] for LEWI S, LATANDRIA POCT-GLUCOSE [id number] 12:08:00 Test Item Value Reference Range Interpretation Comments POC-GLUCOSE METER 77 mg/dL 70-110 : TESTED A T [facility] 6720 (BEAKER) (test code = [facility], 1538) 64537: Electronics Instructor/Techni kathryn ID = [id number] for LEWI S, LATANDRIA POCT-GLUCOSE [id number] 07:54:00 Test Item Value Reference Range Interpretation Comments POC-GLUCOSE METER 83 mg/dL 70-110 : TESTED A T [facility] 6720 (BEAKER) (test code = [facility], 1538) 43827: Electronics Instructor/Techni kathryn ID = [id number] for LEWI S, [place] COMPREHENSIVE METABOLIC [id number] 06:16:00 Test Item Value Reference Range Interpretation [...] 347) EGFR (BEAKER) (test 11 mL/min/1.73 ESTIMA CHARLENE GFR IS code = 1092) sq m NOT ACCURATE CREATININE CLEARANCE IN PREDICTING GLOMERULAR FILTRATION RATE . ESTIMATED GFR I S NOT APPLICABLE FOR DIALYSIS PATIEN TS. [id number] 06:09:00 Test Item Value Reference Range Interpretation Comments MAGNESIUM (BEAKER) (test code = 1.8 mg/dL 1.6-2.6 627) [id number] 06:09:00 Test Item Value Reference Range Interpretation Comments PHOSPHORUS (BEAKER) (test code = 3.8 mg/dL 2.3-4.7 604) CBC W/PLT COUNT & AUTO [id number] 06:03:00 Test Item Value Reference Range Interpretation [...] PERCENT (BEAKER) (test code = 2801) POCT-GLUCOSE [id number] 01:37:00 Test Item Value Reference Range Interpretation Comments POC-GLUCOSE METER 116 mg/dL 70-110 H : TESTED A T [facility] 6720 (BEAKER) (test code = [facility], 153) 35559: Electronics Instructor/Techni kathryn ID = [id number] for ARCENIO LEVIHOA SUSANAPATRICIA SALGADO POCT-GLUCOSE [id number] 17:48:00 Test Item Value Reference Range Interpretation Comments POC-GLUCOSE METER 102 mg/dL 70-110 : TESTED A T [facility] 6720 (BEAKER) (test code = [facility], 1538) 09006: Electronics Instructor/Techni kathryn ID = [id number] for SHASHI GUTIERREZ POCT-GLUCOSE [id number] 11:22:00 Test Item Value Reference Range Interpretation Comments POC-GLUCOSE METER 75 mg/dL 70-110 : TESTED A T [facility] 6720 (BEAKER) (test code = [facility], 1538) 58051: Electronics Instructor/Techni kathryn ID = [id number] for REVA SILVA NADA COMPREHENSIVE METABOLIC [id number] 07:38:00 Test Item Value Reference Range Interpretation [...] 347) EGFR (BEAKER) (test 16 mL/min/1.73 ESTIMA CHARLENE GFR IS code = 1092) sq m NOT ACCURATE CREATININE CLEARANCE IN PREDICTING GLOMERULAR FILTRATION RATE . ESTIMATED GFR I S NOT APPLICABLE FOR DIALYSIS PATIEN TS. Electronics Instructor ID - MJ CPOCT-GLUCOSE [id number] 07:37:00 Test Item Value Reference Range Interpretation Comments POC-GLUCOSE METER 89 mg/dL 70-110 : TESTED A T [facility] 6720 (BEAKER) (test code = CARLO Lin [facility], 1538) 71197: Electronics Instructor/Techni kathryn ID = [id number] for WILL IAMS, EASTON [id number] 07:34:00 Test Item Value Reference Range Interpretation Comments PHOSPHORUS (BEAKER) (test code = 3.2 mg/dL 2.3-4.7 604) Electronics Instructor ID - MJ [id number] 07:34:00 Test Item Value Reference Range Interpretation Comments MAGNESIUM (BEAKER) (test code = 1.7 mg/dL 1.6-2.6 627) Electronics Instructor ID - MJ CCBC W/PLT COUNT & AUTO [id number] 07:09:00 Test Item Value Reference Range Interpretation [...] PERCENT (BEAKER) (test code = 2801) POCT-GLUCOSE [id number] 01:04:00 Test Item Value Reference Range Interpretation Comments POC-GLUCOSE METER 80 mg/dL 70-110 : TESTED A T [facility] 6720 (BEAKER) (test code = [facility] [employer] [facility], 1538) 43955: Electronics Instructor/Techni kathryn ID = [id number] for EASTON CONLEY POCT-GLUCOSE [id number] 18:05:00 Test Item Value Reference Range Interpretation Comments POC-GLUCOSE METER 69 mg/dL 70-110 L : TESTED A T [facility] 6720 (BEAKER) (test code = [employer] [facility], 1538) 36698: Electronics Instructor/Techni kathryn ID = [id number] for JUDSON RUTLEDGE HEMODIALYSIS [id number] 12:40:00Karo Escamilla RN 07/14/2020 1:03 PMHD set-up almost clotting mid-procedure, blood returned, rinsed and restarted with a new set-up. Patient was restless when awake during the procedure, tugs on her HD catheter and removing her gown, suggested to [address] [place] [address] nurse Judson, RN during report that patient would benefit with a sitter to keep her company for her safety. Treatment fairly tolerated. Vital [...] BP: 101/64 Pulse: 92 Resp: 13 Temp: SpO2:[facility] CenterIMMUNOFIXATION ELECTROPHORESIS (VERÓNICA)2020-07-14 11:40:00 Test Item Value Reference Range Interpretation Comments IMMUNOGLOBULIN G (IGG) 9190 mg/dL 540-1,822 H (BEAKER) (test code = 427) IMMUNOGLOBULIN A (IGA) 26 mg/dL 63-484 L (BEAKER) (test code = 639) IMMUNOGLOBULIN M (IGM) 21 mg/dL 22-293 L (BEAKER) (test code = 638) SERUM VERÓNICA ID (BEAKER) IgG-kappa, (test code = 1814) monoclonal [id number] Jessy Camacho, (BEAKER) (test code = (electronic 2597) signature) Electronics Instructor ID - MJ CImmunofixation electrophoresis (VERÓNICA)2020-07-14 10:18:00 Test Item Value Reference Range Interpretation Comments IgG (test code = 2465-3) 01011 mg/dL 540-1822 H IgA (test code = 2458-8) 20 mg/dL 63-484 L IgM (test code = 2464-6) 19 mg/dL 22-293 L Serum VERÓNICA Identification IgG-kappa, (test code = 1814) monoclonal Pathologist: (test code = Jessy Camacho, 2597) (electronic signature) HERBIE (test code = HERBIE) Electronics Instructor ID - MJ C Lab Interpretation (test Abnormal code = 21544-0) [facility] CenterIMMUNOFIXATION ELECTROPHORESIS (VERÓNICA)2020-07-14 10:18:00 Test Item Value Reference Range Interpretation Comments IMMUNOGLOBULIN G (IGG) 33385 mg/dL 540-1,822 H (BEAKER) (test code = 427) IMMUNOGLOBULIN A (IGA) 20 mg/dL 63-484 L (BEAKER) (test code = 639) IMMUNOGLOBULIN M (IGM) 19 mg/dL 22-293 L (BEAKER) (test code = 638) SERUM VERÓNICA ID (BEAKER) IgG-kappa, (test code = 1814) monoclonal [id number] Jessy Camacho, (BEAKER) (test code = (electronic 3423) signature) Electronics Instructor ID - MJ CCOMPREHENSIVE METABOLIC [id number] 08:59:00 Test Item Value Reference Range Interpretation [...] 347) EGFR (BEAKER) (test 10 mL/min/1.73 ESTIMA CHARLENE GFR IS code = 1092) sq m NOT ACCURATE CREATININE CLEARANCE IN PREDICTING GLOMERULAR FILTRATION RATE . ESTIMATED GFR I S NOT APPLICABLE FOR DIALYSIS PATIEN TS. Electronics Instructor ID - PALAK [id number] 08:57:00 Test Item Value Reference Range Interpretation Comments PHOSPHORUS (BEAKER) (test code = 3.2 mg/dL 2.3-4.7 604) Electronics Instructor ID - PALAK [id number] 08:57:00 Test Item Value Reference Range Interpretation Comments MAGNESIUM (BEAKER) (test code = 1.8 mg/dL 1.6-2.6 627) Electronics Instructor ID - PALAK MCBC W/PLT COUNT & AUTO [id number] 08:44:00 Test Item Value Reference Range Interpretation [...] PERCENT (BEAKER) (test code = 2801) POCT-GLUCOSE [id number] 22:00:00 Test Item Value Reference Range Interpretation Comments POC-GLUCOSE METER 82 mg/dL 70-110 : TESTED A T [facility] 6720 (BEAKER) (test code = [facility], 1538) 63787: Electronics Instructor/Techni kathryn ID = [id number] for DOBB INS, TESS POCT-GLUCOSE [id number] 17:40:00 Test Item Value Reference Range Interpretation Comments POC-GLUCOSE METER 103 mg/dL 70-110 : TESTED A T [facility] 6720 (BEAKER) (test code = [facility], 1538) 90620: Electronics Instructor/Techni kathryn ID = [id number] for CARDOZA BLET, DOUG POCT-GLUCOSE [id number] 11:10:00 Test Item Value Reference Range Interpretation Comments POC-GLUCOSE METER 83 mg/dL 70-110 : TESTED A T [facility] 6720 (BEAKER) (test code = [facility], 1538) 36144: Electronics Instructor/Techni kathryn ID = [id number] for SUBL ET, DOUG COMPREHENSIVE METABOLIC [id number] 06:35:00 Test Item Value Reference Range Interpretation [...] hemolyzed EGFR (BEAKER) (test 16 mL/min/1.73 ESTIMA CHARLENE GFR IS code = 1092) sq m NOT ACCURATE CREATININE CLEARANCE IN PREDICTING GLOMERULAR FILTRATION RATE . ESTIMATED GFR I S NOT APPLICABLE FOR DIALYSIS PATIEN TS. Electronics Instructor ID - PALAK [id number] 06:19:00 Test Item Value Reference Range Interpretation Comments MAGNESIUM (BEAKER) 1.7 mg/dL 1.6-2.6 Specimen slightly (test code = 627) hemolyzed Electronics Instructor ID - PALAK [id number] 06:19:00 Test Item Value Reference Range Interpretation Comments PHOSPHORUS (BEAKER) 2.3 mg/dL 2.3-4.7 Specimen slightly (test code = 604) hemolyzed Electronics Instructor ID - PALAK MCBC W/PLT COUNT & AUTO [id number] 05:31:00 Test Item Value Reference Range Interpretation [...] PERCENT (BEAKER) (test code = 2801) POCT-GLUCOSE [id number] 23:06:00 Test Item Value Reference Range Interpretation Comments POC-GLUCOSE METER 94 mg/dL 70-110 : TESTED A T [facility] 6720 (BEAKER) (test code = CARLO [place], 1538) 23842: Electronics Instructor/Techni kathryn ID = [id number] for DENNY SHETTY HEMODIALYSIS [id number] 18:40:14James Silverio, APOORVA 07/12/2020 6:43 PMTolerated and completed 3 hours [...] (H) 07/12/2020 James VILLAFUERTE, RN II7S6- Adult [id number] 355 6789[facility] CenterPOCT- GLUCOSE [id number] 18:10:00 Test Item Value Reference Range Interpretation Comments POC-GLUCOSE METER 103 mg/dL 70-110 : TESTED A T [facility] 6720 ([employer]) (test code = [facility] Delia [facility], 1538) 64954: Electronics Instructor/Techni kathryn ID = [id number] for James Enciso POCT-GLUCOSE [id number] 18:06:00 Test Item Value Reference Range Interpretation Comments POC-GLUCOSE METER 68 mg/dL 70-110 L : TESTED A T [facility] 6720 ([employer]) (test [facility] = [facility], 1538) 23104: Electronics Instructor/Techni kathryn ID = [id number] for James Dockery Protein electrophoresis, [id number] 10:45:00 Test Item Value Reference Range Interpretation Comments Albumin Fraction 3.8 g/dL 3.5-5.5 (test code = 405) Alpha 1 Fraction 0.5 g/dL 0.2-0.4 H (test code = 389) Alpha 2 Fraction 1.4 g/dL 0.5-0.9 H (test code = 390) Beta Fraction (test 1.5 g/dL 0.6-1.1 H code = 392) Gamma Globulin 7.9 g/dL 0.7-1.7 H Fraction (test code = 391) Interpretation (test Previously code = 2615) reported monoclonal band present. No significant changes. Pathologist: (test Jessy code = 2616) MD Doug (electronic signature) Protein, Total (test 15.0 See_Comment H [Autom ated code = 2660) message] The system which generated this result transmitted reference range : 6.0 - 8.3 gm/dL . The reference range was not used to interpr et this result as normal/abnormal . HERBIE (test code = HERBIE) Electronics Instructor ID - MOOSE F Lab Interpretation Abnormal (test code = 85705-1) [facility] CenterPROTEIN ELECTROPHORESIS, [id number] 10:45:00 Test Item Value Reference Range Interpretation [...] monoclonal band present. 2615) No significant changes. [id number] Jessy Camacho MD (BEAKER) (test code = (electronic signature) 2616) PROTEIN TOTAL SERUM, 15.0 gm/dL 6.0-8.3 H SPEP (BEAKER) (test code = 2660) Electronics Instructor ID - MOOSE FType and [id number] 07:56:00 Test Item Value Reference Range Interpretation Comments Ab Scrn (test code = 890-4) NEGATIVE PEG ABO Grouping (test code = 2588) B Rh Factor (test code = 2589) POS [facility] [id number] 07:41:00 Test Item Value Reference Range Interpretation Comments POC-GLUCOSE METER 77 mg/dL 70-110 : [facility] (test code = [place], 1538) 95309: Electronics Instructor/Techni kathryn ID = [id number] for CORBIN LAINEZ [id number] 05:03:00 Test Item Value Reference Range Interpretation Comments PHOSPHORUS (BEAKER) (test code = 3.1 mg/dL 2.3-4.7 604) Electronics Instructor ID - [id number] 05:03:00 Test Item Value Reference Range Interpretation Comments MAGNESIUM (BEAKER) (test code = 1.8 mg/dL 1.6-2.6 627) Electronics Instructor ID - EDASICOMPREHENSIVE METABOLIC [id number] 05:03:00 Test Item Value Reference Range Interpretation [...] S NOT APPLICABLE FOR DIALYSIS PATIEN TS. Electronics Instructor ID - EDASICBC W/PLT COUNT & AUTO [id number] 04:47:00 Test Item Value Reference Range Interpretation [...] PERCENT (BEAKER) (test code = 2801) POCT-GLUCOSE [id number] 20:42:00 Test Item Value Reference Range Interpretation Comments POC-GLUCOSE METER 97 mg/dL 70-110 : TESTED A T [facility] 6720 (BEAKER) (test code = [facility], 1538) 04826: Electronics Instructor/Techni kathryn ID = [id number] for JAN FARIAS POCT-GLUCOSE [id number] 16:41:00 Test Item Value Reference Range Interpretation Comments POC-GLUCOSE METER 92 mg/dL 70-110 : TESTED A T [facility] 6720 (BEAKER) (test code = [facility], 1538) 71147: Electronics Instructor/Techni kathryn ID = [id number] for TEO PRUITT POCT-GLUCOSE [id number] 11:47:00 Test Item Value Reference Range Interpretation Comments POC-GLUCOSE METER 117 mg/dL 70-110 H : TESTED A T [facility] 6720 (BEAKER) (test code = [facility], 153) 87216: Electronics Instructor/Techni kathryn ID = [id number] for CASSIDY LOPEZ IMMUNOGLOBULIN G (IGG)2020-07-11 08:11:00 Test Item Value Reference Range Interpretation Comments IMMUNOGLOBULIN G (IGG) (BEAKER) 00623 mg/dL 540-1,822 H (test code = 427) Electronics Instructor ID - MOOSE FCOMPREHENSIVE METABOLIC [id number] 06:54:00 Test Item Value Reference Range Interpretation [...] S NOT APPLICABLE FOR DIALYSIS PATIEN TS. Electronics Instructor ID Shani VIRK [id number] 06:52:00 Test Item Value Reference Range Interpretation Comments PHOSPHORUS (BEAKER) (test code = 2.4 mg/dL 2.3-4.7 604) Electronics Instructor ID Shani VIRK [id number] 06:52:00 Test Item Value Reference Range Interpretation Comments MAGNESIUM (BEAKER) (test code = 1.8 mg/dL 1.6-2.6 627) Electronics Instructor ID Shani VIRK FCBC W/PLT COUNT & AUTO [id number] 06:42:00 Test Item Value Reference Range Interpretation [...] PERCENT (BEAKER) (test code = 2801) POCT-GLUCOSE [id number] 05:47:00 Test Item Value Reference Range Interpretation Comments POC-GLUCOSE METER 130 mg/dL 70-110 H : TESTED A T [facility] 6720 (BEAKER) (test code = [facility], 1538) 37200: Electronics Instructor/Techni kathryn ID = [id number] for CH UA, HENRISON POCT-GLUCOSE [id number] 23:28:00 Test Item Value Reference Range Interpretation Comments POC-GLUCOSE METER 125 mg/dL 70-110 H : TESTED A T [facility] 6720 (BEAKER) (test code = [facility], 1538) 53781: Electronics Instructor/Techni kathryn ID = [id number] for CH UA, HENRISON POCT-GLUCOSE [id number] 16:56:00 Test Item Value Reference Range Interpretation Comments POC-GLUCOSE METER 164 mg/dL 70-110 H : TESTED A T [facility] 6720 (BEAKER) (test code = [facility], 1538) 18731: Electronics Instructor/Techni kathryn ID = [id number] for IRASEMA CARDOZA POCT-GLUCOSE [id number] 12:02:00 Test Item Value Reference Range Interpretation Comments POC-GLUCOSE METER 138 mg/dL 70-110 H : TESTED A T [facility] 6720 (BEAKER) (test code [facility], = 1538) 21871: Electronics Instructor/Techni kathryn ID = [id number] for JETHRO DIALLO COMPREHENSIVE METABOLIC [id number] 07:11:00 Test Item Value Reference Range Interpretation [...] 347) EGFR (BEAKER) (test 13 mL/min/1.73 ESTIMA CHARLENE GFR IS code = 1092) sq m NOT ACCURATE CREATININE CLEARANCE IN PREDICTING GLOMERULAR FILTRATION RATE . ESTIMATED GFR I S NOT APPLICABLE FOR DIALYSIS PATIEN TS. Electronics Instructor ID - [id number] 06:36:00 Test Item Value Reference Range Interpretation Comments PHOSPHORUS (BEAKER) (test code = 2.7 mg/dL 2.3-4.7 604) Electronics Instructor ID - [id number] 06:36:00 Test Item Value Reference Range Interpretation Comments MAGNESIUM (BEAKER) (test code = 1.7 mg/dL 1.6-2.6 627) Electronics Instructor ID - [id number] W/PLT COUNT & AUTO [id number] 06:34:00 Test Item Value Reference Range Interpretation [...] PERCENT (BEAKER) (test code = 2801) POCT-GLUCOSE [id number] 05:25:00 Test Item Value Reference Range Interpretation Comments POC-GLUCOSE METER 143 mg/dL 70-110 H : TESTED A T [facility] 6720 (BEAKER) (test code = [facility], 1538) [id number]: Electronics Instructor/Techni kathryn ID = [id number] for [facility], [place] POCT-GLUCOSE [id number] 23:27:00 Test Item Value Reference Range Interpretation Comments POC-GLUCOSE METER 165 mg/dL 70-110 H : TESTED A T [facility] 6720 (BEAKER) (test code = [facility], 1538) [id number]: Electronics Instructor/Techni kathryn ID = [id number] for [facility], HENRISON POCT-GLUCOSE [id number] 17:17:00 Test Item Value Reference Range Interpretation Comments POC-GLUCOSE METER 121 mg/dL 70-110 H : TESTED A T [facility] 6720 (BEAKER) (test code = CARLO JASS[place], 1538) [address]: Electronics Instructor/Techni kathryn ID = [id number] for BRET T[place]END COMPREHENSIVE METABOLIC [id number] 06:13:00 Test Item Value Reference Range Interpretation [...] S NOT APPLICABLE FOR DIALYSIS PATIEN TS. Electronics Instructor ID - PIAYA LPOCT-GLUCOSE [id number] 06:05:00 Test Item Value Reference Range Interpretation Comments POC-GLUCOSE METER 118 mg/dL 70-110 H : TESTED A T [facility] 6720 (BEAKER) (test code = CARLO JASSO [place], 1538) [address]: Electronics Instructor/Techni kathryn ID = [id number] for TESS FLORES [id number] 05:42:00 Test Item Value Reference Range Interpretation Comments PHOSPHORUS (BEAKER) (test code = 5.2 mg/dL 2.3-4.7 H 604) Electronics Instructor ID - SHERRY [id number] 05:42:00 Test Item Value Reference Range Interpretation Comments MAGNESIUM (BEAKER) (test code = 1.9 mg/dL 1.6-2.6 627) Electronics Instructor ID - SHERRY LCBC W/PLT COUNT & AUTO [id number] 05:20:00 Test Item Value Reference Range Interpretation [...] PERCENT (BEAKER) (test code = 2801) POCT-GLUCOSE [id number] 22:07:00 Test Item Value Reference Range Interpretation Comments POC-GLUCOSE METER 132 mg/dL 70-110 H : TESTED A T [facility] 6720 (BEAKER) (test code = CARLO Lin [facility], 1538) [address]: Electronics Instructor/Techni kathryn ID = [id number] for DO TESS CRAMER Blood Culture - Routine (Left Venipuncture)2020-07-08 20:00:00 Test Item Value Reference Range Interpretation Comments Result (test code = No growth in 5 days 6463-4) [facility] [id number] 20:00:00 Test Item Value Reference Range Interpretation Comments CULTURE (BEAKER) (test No growth in 5 days code = 1095) BLOOD [id number] 20:00:00 Test Item Value Reference Range Interpretation Comments CULTURE (BEAKER) (test No growth in 5 days code = 1095) RAD, ABDOMEN/KUB, 1 VIEW [id number] 17:42:00Reason for exam:->cortrak verificationFINAL REPORT Abdomen x-ray [...] MDReport Verified Date/Time: 07/08/2020 17:42:18 Reading Location: [address] Consult Reading Room XR abdomen / KUB [...] MDReport Verified Date/Time: 07/08/2020 17:42:18 Reading Location: [address] Consult [facility] [id number] 17:27:00 Test Item Value Reference Range Interpretation Comments POC-GLUCOSE METER 131 mg/dL 70-110 H : TESTED A T [facility] 6720 ([employer]) (test code = [employer] [facility], 1538) 118[address]: Electronics Instructor/Techni kathryn ID = [id number] for DOUG DE LEÓN POCT-GLUCOSE [id number] 11:48:00 Test Item Value Reference Range Interpretation Comments POC-GLUCOSE METER 91 mg/dL 70-110 : TESTED A T [facility] 6720 (BEAKER) (test code = [facility] [employer] [facility], 1538) 60046: Electronics Instructor/Techni kathryn ID = [id number] for DOUG DUARTE MR, BRAIN, WITHOUT [id number] 10:39:00Unlisted Reason for Exam - Click Yes [...] MDReport Verified Date/Time: 07/08/2020 10:39:36 Reading Location: [address] Neuro Reading Room E lectronically signed by: YOANDY HANSON on 07/08/2020 10:39 AMMR brain without IV klfgiuaz1319-91-65 10:39:00Interface, External Ris In - 07/08/2020 10:41 [...] MDReport Verified Date/Time: 07/08/2020 10:39:36 Reading Location: [address] Neuro [facility] [id number] 06:10:00 Test Item Value Reference Range Interpretation Comments POC-GLUCOSE METER 96 mg/dL 70-110 : TESTED A T [facility] 6720 (BEAKER) (test code = CARLO JASSO [place], 1538) [address]: Electronics Instructor/Techni kathryn ID = [id number] for DENNY SHETTY COMPREHENSIVE METABOLIC [id number] 05:50:00 Test Item Value Reference Range Interpretation [...] 347) EGFR (BEAKER) (test 10 mL/min/1.73 ESTIMA CHARLENE GFR IS code = 1092) sq m NOT ACCURATE CREATININE CLEARANCE IN PREDICTING GLOMERULAR FILTRATION RATE . ESTIMATED GFR I S NOT APPLICABLE FOR DIALYSIS PATIEN TS. Electronics Instructor ID - PALAK [id number] 05:45:00 Test Item Value Reference Range Interpretation Comments PHOSPHORUS (BEAKER) (test code = 5.5 mg/dL 2.3-4.7 H 604) Electronics Instructor ID - PALAK [id number] 05:45:00 Test Item Value Reference Range Interpretation Comments MAGNESIUM (BEAKER) (test code = 1.8 mg/dL 1.6-2.6 627) Electronics Instructor ID - PALAK MCBC W/PLT COUNT & AUTO [id number] 05:15:00 Test Item Value Reference Range Interpretation [...] PERCENT (BEAKER) (test code = 2801) POCT-GLUCOSE [id number] 00:30:00 Test Item Value Reference Range Interpretation Comments POC-GLUCOSE METER 111 mg/dL 70-110 H : TESTED A T [facility] 6720 (BEAKER) (test code = [facility], 1538) 6[address]: Electronics Instructor/Techni kathryn ID = [id number] for EASTON SALEH POCT-GLUCOSE [id number] 18:32:00 Test Item Value Reference Range Interpretation Comments POC-GLUCOSE METER 121 mg/dL 70-110 H : TESTED A T [facility] 6720 (BEAKER) (test code = [facility] [employer] [facility], 1538) 77[address]: Electronics Instructor/Techni kathryn ID = [id number] for DU KAROL, BRET EEG W VID 2-12 HR CONTINUOUS MONITORING (VEEG)2020-07-07 15:19:00 day billingVideo EEG report [facility] DATE OF TEST: 07/06/2020 DATE OF REPORT: 07/06/2020 ACC: [id number] [id number] Start time: 8:02 AM Stop time: 5:48 PM ICD-10: R56.0 CPT: 22200 HISTORY: 74 y.o. female with PMH of [...] Attending EEG 2-12 HR Continuous Monitoring with Mcynw7888-41-30 15:19:00Interface, External Ris In - 07/07/2020 3:19 PM CDTVideo EEG report [facility] DATE OF TEST: 07/06/2020 DATE OF REPORT: 07/06/2020 ACC: [id number] Start time: 8:02 AM Stop time: 5:48 PM ICD-10: R56.0 CPT: 97738 HISTORY: 74 y.o. female with PMH of [...] pattern. Aleyda Donahue MD Clinical Neurophysiology/Epilepsy Attending [facility] [id number] 11:58:00 Test Item Value Reference Range Interpretation Comments POC-GLUCOSE METER 85 mg/dL 70-110 : TESTED A T [facility] 6720 (BEAKER) (test code = CARLO Lin [facility], 1538) [address]39[address]: Electronics Instructor/Techni kathryn ID = [id number] for JETHRO DIALLO [id number] 11:38:00 Test Item Value Reference Range Interpretation Comments Ammonia (test code = 34 See_Comment [Autom ated 29532-9) message] The system which generated this result transmit charlene reference range : 18 - 72 mol/L . The reference range was not u sed to interpret th is result as normal/abnormal . HERBIE (test code = HERBIE) Electronics Instructor ID - AAHAMID Lab Interpretation Normal (test code = 36680-5) [facility] CenterAMMONIA2020-10-01 11:38:00 Test Item Value Reference Range Interpretation Comments AMMONIA (BEAKER) (test code = 348) 34 mol/L 18-72 Electronics Instructor ID - AAHAMIDPOCT-GLUCOSE [id number] 07:08:00 Test Item Value Reference Range Interpretation Comments POC-GLUCOSE METER 87 mg/dL 70-110 : TESTED A T [facility] 6720 (BEAKER) (test code = CARLO Lin [facility], 1538) 014[address]: Electronics Instructor/Techni kathryn ID = [id number] for DENNY SHETTY COMPREHENSIVE METABOLIC [id number] 06:19:00 Test Item Value Reference Range Interpretation [...] S NOT APPLICABLE FOR DIALYSIS PATIEN TS. Electronics Instructor ID - [id number] 06:13:00 Test Item Value Reference Range Interpretation Comments PHOSPHORUS (BEAKER) (test code = 4.5 mg/dL 2.3-4.7 604) Electronics Instructor ID - [id number] 06:13:00 Test Item Value Reference Range Interpretation Comments MAGNESIUM (BEAKER) (test code = 1.8 mg/dL 1.6-2.6 627) Electronics Instructor ID - EDASICBC W/PLT COUNT & AUTO [id number] 05:47:00 Test Item Value Reference Range Interpretation [...] PERCENT (BEAKER) (test code = 2801) POCT-GLUCOSE [id number] 00:47:00 Test Item Value Reference Range Interpretation Comments POC-GLUCOSE METER 87 mg/dL 70-110 : TESTED A T [facility] 6720 (BEAKER) (test code = CARLO J[place], 1538) [address]: Electronics Instructor/Techni kathryn ID = [id number] for JAN FARIAS PROTEIN ELECTROPHORESIS, [id number] 19:20:00 Test Item Value Reference Range Interpretation [...] (BEAKER) (test code terminal gamma region. = 2615) Based on current electrophoretic scan, concentration is approximately 5.4 g/dL. Serum VERÓNICA ordered for further characterization. [id number]-[id number]-73 Jessy Camacho MD 9 (BEAKER) (test (electronic signature) code = 2616) PROTEIN TOTAL 13.5 gm/dL 6.0-8.3 H SERUM, SPEP (BEAKER) (test code = 2660) Electronics Instructor ID - SHERRY LRAD, ABDOMEN/KUB, 1 VIEW [id number] 16:56:00Reason for exam:->Corpak placementFINAL REPORT TECHNIQUE: RAD, ABDOMEN/KUB, 1 VIEW AP INDICATION: Corpak placement COMPARISON: None. FINDINGS:Feeding tube is not visualized on the current exam. Bowel gas pattern i s nonobstructive. Degenerative changes noted in the lumbar spine with mild levoconvex curvature. Multiple phleboliths project over the pelvis.. IMPRESSION:Feeding tube is not visualized on the exam.. Signed: Jennifer Man MDReport Verified Date/Time: 07/06/2020 16:56:17 Reading Location: [address] Reading Room POCT-GLUCOSE [id number] 12:21:00 Test Item Value Reference Range Interpretation Comments POC-GLUCOSE METER 103 mg/dL 70-110 : TESTED A T [facility] [facility] ([facility], = 1538) [address]: Electronics Instructor/Techni kathryn ID = [id number] for JETHRO DIALLO EEG W VID 12-26 HR CONTINUOUS MONITORING (VEEG)2020-07-06 11:53:00billing 07/05-07/06Video EEG report [facility] DATE OF TEST: 07/05/2020 DATE OF REPORT: 07/06/2020 ACC: [id number] EE-1229 Start time: 12:02 PM 07/05/2020 Stop time: 8:02 AM 07/06/2020 ICD-10: R56.0 CPT: 14726 HISTORY: 74 y.o. female with PMH of [...] Attending EEG 12-26 HR Continuous Monitoring with Ggngg7035-04-84 11:53:00Interface, External Ris In - 07/06/2020 11:53 AM CDTVideo EEG report [facility] DATE OF TEST: 07/05/2020DATE OF REPORT: 07/06/2020 ACC: [id number] EE-1229 Start time: 12:02 PM 07/05/2020 Stop time: 8:02 AM 07/06/2020 ICD-10: R56.0 CPT: 31582 HISTORY: 74 y.o. female with PMH of [...] pattern. Aleyda Donahue MD Clinical Neurophysiology/Epilepsy [facility] 11:19:00 Test Item Value Reference Range Interpretation Comments Prealbumin (test code = 25 mg/dL 14-45 78778-9) HERBIE (test code = HERBIE) Electronics Instructor [facility] Lab Interpretation (test Normal code = 36701-8) [facility] CenterPREALBUMIN2020-09-30 11:19:00 Test Item Value Reference Range Interpretation Comments PREALBUMIN (BEAKER) (test code = 25 mg/dL 14-45 586) Electronics Instructor [facility] YStlprqrkobagm6514-08-82 11:01:00 Test Item Value Reference Range Interpretation Comments Triglycerides (test 173 mg/dL code = 2571-8) HERBIE (test code = HERBIE) TRIGLYCERIDE REFERENCE RANGELow Risk <150Borderline Risk 150-199High Risk 200-499Very High Risk >=500Operator ID [facility] F [facility] CenterTRIGLYCERIDES2020-09-30 11:01:00 Test Item Value Reference Range Interpretation Comments TRIGLYCERIDES (BEAKER) (test code = 173 mg/dL 540) TRIGLYCERIDE REFERENCE RANGELow Risk <150Borderline Risk 150-199High Risk 200-499Very High Risk>=500Operator [facility] FVitamin D, 25-Hydroxy 2020-07-06 07:23:00 Test Item Value Reference Range Interpretation Comments Vitamin D 25-Hydroxy 39.0 ng/mL 6.6-49.9 (test code = 2764) HERBIE (test code = HERBIE) Effective 07/17/2017: Reference Range ChangeNew: 6.6-49.9 ng/mL Previous: 13.0-47.8 ng/mL Recommended Vitamin D Target Range: 30.0-40.0 ng/mLOperator ALDO VIRK F Lab Interpretation (test Normal code = 52026-4) [facility] CenterVITAMIN D, 48-HMAYFKG4906-01-30 07:23:00 Test Item Value Reference Range Interpretation Comments VITAMIN D 25-OH (BEAKER) (test 39.0 ng/mL 6.6-49.9 code = 2764) Effective 07/17/2017: Reference Range ChangeNew: 6.6-49.9 ng/mL Previous: 13.0-47.8 ng/mLRecommended Vitamin D Target Range: 30.0-40.0 ng/mLOperator ALDO VIRK FCOMPREHENSIVE METABOLIC [id number] 06:58:00 Test Item Value Reference Range Interpretation [...] S NOT APPLICABLE FOR DIALYSIS PATIEN TS. Electronics Instructor ID Shani MOOSE [id number] 06:43:00 Test Item Value Reference Range Interpretation Comments PHOSPHORUS (BEAKER) (test code = 3.8 mg/dL 2.3-4.7 604) Electronics Instructor ID Shani MOOSE [id number] 06:43:00 Test Item Value Reference Range Interpretation Comments MAGNESIUM (BEAKER) (test code = 1.8 mg/dL 1.6-2.6 627) Electronics Instructor ID Shani VIRK FPTH, [id number] 06:32:00 Test Item Value Reference Range Interpretation Comments PTH (test code = 2731-8) 591.5 pg/mL 8.5-72.5 H HERBIE (test code = HERBIE) Electronics Instructor ID Shani MOOSE F Lab Interpretation (test Abnormal code = 31362-1) [facility] CenterPT, [id number] 06:32:00 Test Item Value Reference Range Interpretation Comments PARATHYROID HORMONE INTACT 591.5 pg/mL 8.5-72.5 H (BEAKER) (test code = 577) Electronics Instructor ID Shani MOOSE FCBC W/PLT COUNT & AUTO [id number] 06:21:00 Test Item Value Reference Range Interpretation [...] PERCENT (BEAKER) (test code = 2801) POCT-GLUCOSE [id number] 05:58:00 Test Item Value Reference Range Interpretation Comments POC-GLUCOSE METER 95 mg/dL 70-110 : TESTED Debbie Lewis [facility] 67[address] (BEAKER) (test code = CAR[place], 1538) [address]: Electronics Instructor/Techni kathryn ID = [id number] for SUSANA VARGAS MARCH POCT-GLUCOSE [id number] 22:13:00 Test Item Value Reference Range Interpretation Comments POC-GLUCOSE METER 81 mg/dL 70-110 : TESTED Debbie Lewis [facility] 6720 (DOM) (test code = CARLO [place], 1538) 070[address]: Electronics Instructor/Techni kathryn ID = [id number] for DOBB INS, TESS EEG W VID 12-26 HR CONTINUOUS MONITORING (VEEG)2020-07-05 15:49:00Reason for exam:->szELECTROENCEPHALOGRAM CONTINUOUS EEG VIDEO BEDSIDE MONITORING STUDY PATIENT NAME: PETROS VELÁSQUEZ START TIME: 11:42 AM, 2019END TIME: 12:02 PM, 2019 REPORT DATE: 2019 CPT: 76550 ICD10: R56.9 PATIENT HX: Patient with encephalopathy [...] MD EEG 12-26 HR Continuous Monitoring with Brvpz4205-81-39 15:49:00Interface, External Ris In - 07/05/2020 3:49 PM CDTELECTROENCEPHALOGRAM CONTINUOUS EEG VIDEO BEDSIDE MONITORING STUDY PATIENT NAME: PETROS VELÁSQUEZ TIME: 11:42 AM, 2019 END TIME: 12:02 PM, REPORT DATE: 2019 CPT: 70044 ICD10: R56.9 PATIENT HX: Patient with encephalopathy [...] electrographic seizures were recorded. Joanna Anthony [facility] [id number] 10:47:00 Test Item Value Reference Range Interpretation Comments POC-GLUCOSE METER 125 mg/dL 70-110 H : TESTED A T [facility]20 (BEAKER) ([facility] = 1538) 35747: Electronics Instructor/Techni kathryn ID = [id number] for AMAN FREDERICK HEPATITIS B SURFACE [id number] 10:38:00 Test Item Value Reference Range Interpretation Comments HEPATITIS B SURFACE ANTIGEN (2) Nonreactive Nonreactive (BEAKER) (test code = 2585) Specimen is considered negative for HBsAg.IMMUNOGLOBULIN G (IGG)2020-07-05 06:55:00 Test Item Value Reference Range Interpretation Comments IMMUNOGLOBULIN G (IGG) (BEAKER) (test > mg/dL 540-1,822 H code = 427) Electronics Instructor ID - SHERRY LImmunoglobulin M (IgM)2020-07-05 06:52:00 Test Item Value Reference Range Interpretation Comments IgM (test code = 2464-6) 20 mg/dL 22-293 L HERBIE (test code = HERBIE) Electronics Instructor ID - SHERRY L Lab Interpretation (test Abnormal code = 61203-2) [facility] CenterIMMUNOGLOBULIN M (IGM)2020-07-05 06:52:00 Test Item Value Reference Range Interpretation Comments IMMUNOGLOBULIN M (IGM) (BEAKER) 20 mg/dL 22-293 L (test code = 638) Electronics Instructor ID - SHERRY LImmunoglobulin A (IgA)2020-07-05 06:43:00 Test Item Value Reference Range Interpretation Comments IgA (test code = 2458-8) 29 mg/dL 63-484 L HERBIE (test code = HERBIE) Electronics Instructor ID - SHERRY L Lab Interpretation (test Abnormal code = 46923-0) [facility] CenterIMMUNOGLOBULIN A (IGA)2020-07-05 06:43:00 Test Item Value Reference Range Interpretation Comments IMMUNOGLOBULIN A (IGA) (BEAKER) 29 mg/dL 63-484 L (test code = 639) Electronics Instructor ID - SHERRY MORAOCT-GLUCOSE [id number] 06:28:00 Test Item Value Reference Range Interpretation Comments POC-GLUCOSE METER 102 mg/dL 70-110 : TESTED A T [facility] 6720 (BEAKER) (test code = CARLO Lin [facility], 1538) [address]71: Electronics Instructor/Techni kathryn ID = [id number] for SUSANA JONES COMPREHENSIVE METABOLIC [id number] 06:00:00 Test Item Value Reference Range Interpretation [...] S NOT APPLICABLE FOR DIALYSIS PATIEN TS. Electronics Instructor ID - SHERRY [id number] 05:59:00 Test Item Value Reference Range Interpretation Comments PHOSPHORUS (BEAKER) (test code = 5.1 mg/dL 2.3-4.7 H 604) Electronics Instructor ID - SHERRY [id number] 05:59:00 Test Item Value Reference Range Interpretation Comments MAGNESIUM (BEAKER) (test code = 2.0 mg/dL 1.6-2.6 627) Electronics Instructor ID - SHERRY LCBC W/PLT COUNT & AUTO [id number] 05:19:00 Test Item Value Reference Range Interpretation [...] PERCENT (BEAKER) (test code = 2801) POCT-GLUCOSE [id number] 00:48:00 Test Item Value Reference Range Interpretation Comments POC-GLUCOSE METER 78 mg/dL 70-110 : TESTED A T [facility] 6720 (BEAKER) (test code = CARLO [place], 1538) [address]28: Electronics Instructor/Techni kathryn ID = [id number] for KELLY LUANAJessica March Vancomycin level, [id number] 18:24:00 Test Item Value Reference Range Interpretation Comments Vancomycin Rm (test 15.9 ug/mL code = 00223-3) HERBIE (test code = Reference Range: No HERBIE) NormalsOperator ID - DB [facility] CenterVANCOMYCIN LEVEL, [id number] 18:24:00 Test Item Value Reference Range Interpretation Comments VANCOMYCIN RANDOM (BEAKER) (test 15.9 ug/mL code = 523) Reference Range: No NormalsOperator ID - DBSARS-COV2/RT-PCR ([facility])2020-07-04 14:49:00 Test Item Value Reference Range Interpretation Comments SARS-COV2/RT-PCR (test Negative Not Detected, Negative, code = 2879842) See external report for linked test SARS-COV-2 PERFORMING LAB [facility] (test code = 4291929) Negative result for this test determines that [...] 564(g) of the Act.Fact Sheet for Healthcare Providers:https://www.Helijia.RingMD/sites/default/files/product/documents/Fact_Shee g_FY_Qvwttlitt_Ymjc_LAKG-DnF-7.pdfFact Sheet for Healthcare Patients:https://www.Helijia.RingMD/sites/default/files/product/ documents/Nqri_Ixrvm_Yjgoztyc_Mlny_BKRD-HrD-1.pdfPerforming Laboratory:[facility], [place] [address]Twfimg doppler legs fahxaizbg0412-81-75 08:37:48Ejection FractionSLEH ECHO HEARTLAB MKCKESSON CPACSRight Impression1. There is [...] Lower Extremities DVT Study Demographics Patient Name [facility] Date of Study 07/04/2020 SAMANTHA Age 74 Visit Number [id number] Gender Female Accession Number [id number] Date of 1945 Referring Ari Amaya Room Number 734 Physician MD [place] Head Former JeanR. Snyder Interpreting Patience Ybarra MD Physician [...] in cm/s ; Diameters are [facility] [id number] 07:20:00 Test Item Value Reference Range Interpretation Comments Ferritin (test code = 2365.63 ng/mL 5-275 H 2276-4) HERBIE (test code = HERBIE) Electronics Instructor ID - SHERRY L Lab Interpretation (test Abnormal code = 03820-9) [facility] CenterFERRITIN2020-09-28 07:20:00 Test Item Value Reference Range Interpretation Comments FERRITIN (BEAKER) (test code = 2365.63 ng/mL 5.00-275.00 H 361) Electronics Instructor ID - SHERRY [id number] 07:19:00 Test Item Value Reference Range Interpretation Comments T4, Total (test code = 5.1 ug/dL 4.9-11.7 3026-2) HERBIE (test code = HERBIE) Electronics Instructor ID - SHERRY L Lab Interpretation (test Normal code = 51430-6) [facility] CenterT42020-09-28 07:19:00 Test Item Value Reference Range Interpretation Comments T4 TOTAL (BEAKER) (test code = 895) 5.1 ug/dL 4.9-11.7 Electronics Instructor ID - SHERRY LCOMPREHENSIVE METABOLIC [id number] 06:30:00 Test Item Value Reference Range Interpretation [...] S NOT APPLICABLE FOR DIALYSIS PATIEN TS. Electronics Instructor ID - CHRISTIANMARGARITA [id number] 06:24:00 Test Item Value Reference Range Interpretation Comments PHOSPHORUS (BEAKER) (test code = 3.3 mg/dL 2.3-4.7 604) Electronics Instructor ID - CHRISTIANMARGARITA [id number] 06:24:00 Test Item Value Reference Range Interpretation Comments MAGNESIUM (BEAKER) (test code = 1.8 mg/dL 1.6-2.6 627) Electronics Instructor ID - CHRISTIANMARGARITA LCBC W/PLT COUNT & AUTO [id number] 05:51:00 Test Item Value Reference Range Interpretation [...] PERCENT (BEAKER) (test code = 2801) Troponin [id number] 05:43:00 Test Item Value Reference Range Interpretation Comments Troponin I (test code = 0.08 ng/mL 0-0.03 H 36109-9) HERBIE (test code = HERBIE) Troponin I [...] L Lab Interpretation (test Abnormal code = 37966-1) [facility] CenterSATHYA [id number] 05:43:00 Test Item Value Reference Range Interpretation [...] failure, acidosis, acute neurological disease, and persistent tachyarrhythmia.Electronics Instructor ID - PIAYA LRespiratory Panel [id number] 03:18:00 Test Item Value Reference Range Interpretation Comments Human Metapneumovirus Not detected Not detected, (test code = 24540-6) Equivocal Rhinovirus (test code = Not detected Not detected, 80440-2) Equivocal INFLUENZA A (NO Not detected Not detected, SUBTYPE) (test code = Equivocal 09109-2) Influenza A subtype H1 (test code = 83478-8) Influenza A Subtype H3 (test code = 11464-1) Influenza A Subtype H1-2009 (test code = 63967-1) Influenza B (test code Not detected Not detected, = 71403-9) Equ[facility]ocal Respiratory Syncytial Not detected Not detected, Virus (test code = Equivocal 23295-8) Parainfluenza Virus 1 Not detected Not detected, (test code = 99408-1) Equivocal Parainfluenza Virus 2 Not detected Not detected, (test code = 21560-6) Equivocal Parainfluenza virus 3 Not detected Not detected, (test code = 75536-3) Equivocal Parainfluenza Virus 4 Not detected Not detected, (test code = 61751-0) Equivocal Adenovirus (test code = Not detected Not detected, 17713-0) Equivocal Coronavirus 229E (test Not detected Not detected, code = 81525-7) Equivocal Coronavirus HKU1 (test Not detected Not detected, code = 03848-7) Equivocal Coronavirus NL63 (test Not detected Not detected, code = 03170-8) Equivocal Coronavirus OC43 (test Not detected Not detected, code = 74811-5) Equivocal Bordetella Pertussis Not detected Not detected, (test code = 83422-3) Equivocal Chlamydophila Not detected Not detected, Pneumoniae (test code = Equivocal 66334-4) Mycoplasma Pneumoniae Not detected Not detected, (test code = 79408-1) Equivocal HERBIE (test code = HERBIE) Other viruses and bacteria not targeted by this PCR panel cannot be excluded; therefore clinical correlation and follow up of serology, culture results, and other molecular studies is required. The results are not intended to be used as the sole means for clinical diagnosis or patient management decisions. This sample was tested at the [facility] using the SocialExpressArray Respiratory Panel. It is FDA cleared and has been verified and approved by the [facility] for clinical use on nasopharyngeal swab specimens. The performance of the FilmArray RP has not been established in individuals who received influenza vaccine. Recent administration of a nasal influenza vaccine may cause false positive results for Influenza A and/orInfluenza B. [facility] HospitalRESPIRATORY PANEL [id number] 03:18:00 Test Item Value Reference Range Interpretation [...] decisions. This sample was [facility] at [facility] Molecular Diagnostics Laboratory using the SocialExpressArray Respiratory Panel. It is FDA cleared and has been verified and approved by the [facility] for clinical use on nasopharyngeal swab specimens.The performance of the FilmArrayRP has not been established in individuals who received influenza vaccine. Recent administration ofa nasal influenza vaccine may cause false positive results for Influenza A and/orInfluenza B.Urinalysis w/Microscopic + Reflex to Culture 2020-07-04 01:41:00 Test Item Value Reference Range Interpretation Comments Color, UA (test code Light [place] = 5778-6) Clarity, UA (test Cloudy code = 5767-9) Specific [place], UA 1.010 1.001-1.035 (test code = 5811-5) pH, UA (test code = 7.0 5.0-8.0 5803-2) Protein, UA (test 200 mg/dL Negative A code = 82724-8) Glucose, UA (test Negative Negative code = 365) Ketones, UA (test Negative Negative code = 2514-8) Bilirubin, UA (test Negative Negative code = 81188-2) Blood, UA (test code Moderate Negative A = 69396-5) Nitrite, UA (test Negative Negative code = 5802-4) Leukocytes, UA (test Large Negative A code = 5799-2) Urobilinogen, UA 0.2 mg/dL 0.2-1 (test code = 12191-1) RBC, UA (test code = 45 See_Comment [Autom ated 00096-2) message] The system which generated this result transmit charlene reference range : /HPF. The reference range was not used to interpret this result as normal/abnormal . WBC, UA (test code = 3609 See_Comment [Autom ated 5821-4) message] The system which generated this result transmit charlene reference range : /HPF. The reference range was not used to interpret this result as normal/abnormal . Squam Epithel, UA 21 See_Comment [Automate d (test code = 63064-5) messag e] The system which generated this result transmit charlene reference range : /HPF. The reference range was not used to interpret this result as normal/abnormal . Specimen Source (test code = 2795) HERBIE (test code = HERBIE) Electronics Instructor ID - tech Lab Interpretation Abnormal (test code = 81616-1) [facility] [id number] 01:41:00 Test Item Value Reference Range Interpretation Comments COLOR (BEAKER) (test code = 470) Light [place] CLARITY (BEAKER) (test code = Cloudy 469) [...] = 516) SOURCE(BEAKER) (test code = 2795) Electronics Instructor ID - techRapid Influenza A&B [id number] 00:43:00 Test Item Value Reference Range Interpretation Comments Rapid Influenza A Antigen Negative Negative, Inconclusive (test code = 95495-5) Rapid influenza B Antigen Negative Negative, Inconclusive (test code = 66824-0) Lab Interpretation (test code Normal = 32350-3) [facility]&B [id number] 00:43:00 Test Item Value Reference Range Interpretation Comments RAPID INFLUENZA A AG (BEAKER) Negative Negative, Inconclusive (test code = 1622) RAPID INFLUENZA B AG (BEAKER) Negative Negative, Inconclusive (test code = 1623) [id number] 23:43:00 Test Item Value Reference Range Interpretation Comments TSH (test code = 1.025 See_Comment [Automated 75439-2) message] The system which generated this result transmit charlene reference range : 0.350 - 4.940 uIU/mL. The reference range was not used to interpret this result as normal/abnormal . HERBIE (test code = HERBIE) Electronics Instructor ID Shani POWELL L Lab Interpretation Normal (test code = 08819-0) [facility]SH[facility] 23:43:00 Test Item Value Reference Range Interpretation Comments THYROID STIMULATING HORMONE 1.025 uIU/mL 0.350-4.940 (BEAKER) (test code = 772) Electronics Instructor ID - SHERRY LTROPONIN [id number] 23:28:00 Test Item Value Reference Range Interpretation Comments TROPONIN I (AKER) (test code = 0.08 ng/mL 0.00-0.03 H [...] failure, acidosis, acute neurological disease, and persistent tachyarrhythmia.Electronics Instructor ID - SHERRY LC-Reactive Protein 2020-07-03 23:22:00 Test Item Value Reference Range Interpretation Comments CRP (test code = 676) 0.61 mg/dL 0-0.5 H HERBIE (test code = HERBIE) Electronics Instructor ID - SHERRY L Lab Interpretation (test Abnormal code = 58994-9) [facility], TIBC, % sat. (without ferritin)2020-07-03 23:22:00 Test Item Value Reference Range Interpretation Comments Iron (test code = 2498-4) 93.0 ug/dL 40-160 TIBC (test code = 2500-7) 143 ug/dL 250-450 L Iron % Saturation (test 65 % 20-55 H code = 2502-3) HERBIE (test code = HERBIE) Electronics Instructor ID - SHERRY L Lab Interpretation (test Abnormal code = 48264-2) [facility] CenterMAGN[facility]IUM2020-09-27 23:22:00 Test Item Value Reference Range Interpretation Comments MAGNESIUM (BEAKER) (test code = 1.8 mg/dL 1.6-2.6 627) Electronics Instructor ID - SHERRY LC-REACTIVE [id number] 23:22:00 Test Item Value Reference Range Interpretation Comments C-REACTIVE PROTEIN (BEAKER) (test 0.61 mg/dL 0.00-0.50 H code = 676) Electronics Instructor ID - SHERRY LCOMPREHENSIVE METABOLIC [id number] 23:22:00 Test Item Value Reference Range Interpretation [...] S NOT APPLICABLE FOR DIALYSIS PATIEN TS. Electronics Instructor ID - SHERRY MCPHERSON, TIBC, % SAT. (WITHOUT FERRITIN)2020-07-03 23:22:00 Test Item Value Reference Range Interpretation Comments IRON (BEAKER) (test code = 547) 93.0 ug/dL 40.0-160.0 TOTAL IRON BINDING CAPACITY 143 ug/dL 250-450 L (BEAKER) (test code = 769) IRON % SATURATION (2) (BEAKER) 65 % 20-55 H (test code = 2590) Electronics Instructor ALDO POWELL [id number] 23:19:00 Test Item Value Reference Range Interpretation Comments D-Dimer, Quant (test 7.31 See_Comment H [Autom ated code = 38617-0) message] The system which generated this result transmitted reference range : <0.50 MG/L FEU. The reference range was not used to interpr et this result as normal/abnormal . HERBIE (test code = HERBIE) Intended Use: [...] thrombosis is within 95-100% range. Lab Interpretation Abnormal (test code = 98392-6) [facility] CenterD-[id number] 23:19:00 Test Item Value Reference Range Interpretation [...] exclusion of thrombosis is within 95-100% range. [id number] 23:10:00 Test Item Value Reference Range Interpretation Comments Fibrinogen (test code = 3255-7) 202 mg/dl 225-434 L Lab Interpretation (test code = Abnormal 95489-7) [facility] CenterFIBRINOGEN2020-09-27 23:10:00 Test Item Value Reference Range Interpretation Comments FIBRINOGEN LEVEL (BEAKER) (test 202 mg/dl 225-434 L code = 658) CBC W/PLT COUNT & AUTO [id number] 22:54:00 Test Item Value Reference Range Interpretation [...] PERCENT (BEAKER) (test code = 2801) Uric [id number] 22:28:00 Test Item Value Reference Range Interpretation Comments Uric Acid (test code = 7.8 mg/dL 2.6-7.2 H 3084-1) HERBIE (test code = HERBIE) Electronics Instructor ID - DB Lab Interpretation (test Abnormal code = 43264-0) [facility] CenterURIC [id number] 22:28:00 Test Item Value Reference Range Interpretation Comments URIC ACID (BEAKER) (test code = 7.8 mg/dL 2.6-7.2 H 773) Electronics Instructor ID - DBURINALYSIS W/ REFLEX URINE [id number] 21:01:00 Test Item Value Reference Range Interpretation [...] /LPF 514) SOURCE(BEAKER) (test code = 2795) Electronics Instructor ID - [auto]Electronics Instructor ID - techTRGODFREYN [id number] 20:47:00 Test Item Value Reference Range Interpretation [...] failure, acidosis, acute neurological disease, and persistent tachyarrhythmia.Electronics Instructor ID - DBB-type Natriuretic Factor (BNP)2020-07-03 20:44:00 Test Item Value Reference Range Interpretation Comments BNP (test code = 11272-6) 682 pg/mL 0-100 H HERBIE (test code = HERBIE) Electronics Instructor ID - DB Lab Interpretation (test Abnormal code = 26674-2) [facility] CenterB-TYPE NATRIURETIC FACTOR (BNP)2020-07-03 20:44:00 Test Item Value Reference Range Interpretation Comments B-TYPE NATRIURETIC PEPTIDE (BEAKER) 682 pg/mL 0-100 H (test code = 700) Electronics Instructor ID - DBCOMPREHENSIVE METABOLIC [id number] 20:43:00 Test Item Value Reference Range Interpretation [...] S NOT APPLICABLE FOR DIALYSIS PATIEN TS. Electronics Instructor ID - DBLactic acid, [id number] 19:17:00 Test Item Value Reference Range Interpretation Comments Lactate, Venous (test 1.35 mmol/L 0.5-2.2 Specim en code = 2872) moderately hemolyzed HERBIE (test code = HERBIE) Electronics Instructor ID - AAHAMID Lab Interpretation Normal (test code = 27497-6) [facility], [id number] 19:17:00 Test Item Value Reference Range Interpretation Comments LACTATE BLOOD VENOUS 1.35 mmol/L 0.50-2.20 Specime n moderately (2) (BEAKER) (test hemolyzed code = 2872) Electronics Instructor ID - AAHAMIDPT/[id number] 19:07:00 Test Item Value Reference Range Interpretation [...] mechanical heart valves.CBC W/PLT COUNT & AUTO [id number] 19:00:00 Test Item Value Reference Range Interpretation [...] (BEAKER) (test code = 2801) Blood gas, [id number] 18:50:00 Test Item Value Reference Range Interpretation Comments pH, Alli (test code = 7.33 7.32-7.42 2746-6) pCO2, Alli (test code = 45 See_Comment [Aut omated 755) message] The sy stem which generated this result transmitted reference range : 41 - 51 mmHg. The reference range was not used to interpret this result as normal/abnormal . pO2, Alli (test code = 37 See_Comment [Auto mated 8595-2) message] The sy stem which generated this result transmitted reference range : 25 - 40 mmHg. The reference range was not used to interpret this result as normal/abnormal . O2 Sat, Alli (test code 65.8 % 40-70 = 2711-0) HCO3, Alli (test code = 24 mmol/L 21-29 91599-1) Base Excess, Alli (test -2.2 mmol/L -2-3 L code = 1927-3) Patient Temperature 37.0 C (test code = 8310-5) FIO2 (test code = 1819) 21 % Lab Interpretation Abnormal (test code = 10841-8) [facility] CenterBLOOD GAS, [id number] 18:50:00 Test Item Value Reference Range Interpretation [...] = 1819) 21.0 % CT, BRAIN, WITHOUT [id number] 18:20:00Reason for exam:- >HYPOTENSIONWhat is the patient's [...] recommended for further characterization. Signed: Kb Almendarez MDReport Nehal ified Date/Time: 07/03/2020 18:20:13 CT brain without IV [id number] 18:20:00Interface, External Ris In - 07/03/2020 6:23 [...] Signed: Kb Almendarez Verified Date/Time: 07/03/2020 18:20:13 [facility], NON [id number] 18:09:00Reason for exam:->HYPOTENSIONShould this be performed at [...] IMPRESSION: Mild pulmonary edema. Signed: Meng Ashley Verified Date/Time: 07/03/2020 18:09:32 Reading Location: [facility] B1 C013T Transitional Reading Room XR chest 1 view portable / [id number] 18:09:00Interface, External Ris In - 07/03/2020 6:11 [...] MDReport Verified Date/Time: 07/03/2020 18:09:32 Reading Location: [facility] C013T Transitional Reading Room [facility] SARS-COV2/RT-PCR ([facility])2020-05-12 10:19:00 Test Item Value Reference Range Interpretation Comments SARS-COV2/RT-PCR (test Negative Not Detected, Negative, code = 0985306) See external report for linked test SARS-COV-2 PERFORMING LAB [facility] (test code = 7365380) Negative result for this test determines that [...] 564(g) of the Act.Fact Sheet for Healthcare Providers:https://www.Helijia.RingMD/sites/default/files/product/documents/Fact_Shee a_JH_Zhuvsvozt_Fxnu_HACD-AxL-8.pdfFact Sheet for Healthcare Patients:https://www.Helijia.com/sites/default/files/product/ documents/Rfqq_Ouqzz_Yqdmgmdg_Klsb_MQGD-VvI-2.pdfPerforming Laboratory:[facility] [place] [address]
[2020-12-30 04:29] LABS: Absolute Lymphocytes (CBC) 2.4 K/uL (0.7-4.9); Basophils % 0.5 % (0-1.3); Hematocrit 34.3 % (36.0-45.0); MPV 9.7 fL (7.6-11.3); RBC Red Blood Cell Count 3.59 M/uL (3.86-4.86)
[2020-12-30 04:35] LABS: Protime INR 0.84
[2020-12-30 04:54] LABS: Potassium 5.2 mmol/L (3.5-5.1)
--- NOTE | 2020-12-30 05:14 | EDPHYS ---
Physician Documentation [facility] Name: Liat Velazquez Age: 75 yrs Sex: Female : 1945 Arrival Date: 12/30/2020 Time: 03:49 Bed 20 Private MD: ED Physician Melo Goodman HPI: 12/30 03:57 This 75 yrs old Black Female presents to ER via Unassigned with complaints of Dialysis ma2 Catheter Problem. 03:57 Onset: The symptoms/episode began/occurred suddenly, 1 hour(s) ago. The malfunction was ma2 discovered at home. Associated signs and symptoms: Pertinent negatives: fever, swelling, redness in area. The patient has not experienced similar symptoms in the past. patient pulled her right upper chest dialysis catheter accidently, she has an appointment this morning to have it replaced, however she called the er and stated that she had minor bleeding and weather she need to be checked in the er. we told her that we can evaluate her for any emergency condition, so she came to the er. no symptoms such as sob or bleeding at this time. . Historical: - Allergies: 03:55 No Known Allergies; rr5 - PMHx: 03:55 Dialysis; TThS; Hypertension; kidney problems; multiple myeloma; rr5 - PSHx: 03:55 Knee surgery; dialysis catheter insertion right chest; rr5 - Immunization history:: Adult Immunizations up to date, Client reports receiving the 1st dose of the Covid vaccine, December 23, 2020. - Social history:: Patient/guardian denies using alcohol, street drugs, The patient lives with family, Smoking status: unknown. - Family history:: not pertinent. ROS: 03:57 Constitutional: Negative for fever, chills, and weight loss. ma2 03:57 All other systems are negative. Exam: 03:57 Constitutional: This is a well developed, well nourished patient who is awake, alert, ma2 and in no acute distress. Neck: Trachea midline, no thyromegaly or masses palpated, and no cervical lymphadenopathy. Supple, full range of motion without nuchal rigidity, or vertebral point tenderness. No Meningismus. Chest/axilla: right upper chest catheter is completely removed, cath area is dry, no bleeding, in good order. Normal chest wall appearance and motion. Nontender with no deformity. No lesions are appreciated. Cardiovascular: Regular rate and rhythm with a normal S1 and S2. No gallops, murmurs, or rubs. Normal PMI, no JVD. No pulse deficits. Respiratory: Lungs have equal breath sounds bilaterally, clear to auscultation and percussion. No rales, rhonchi or wheezes noted. No increased work of breathing, no retractions or nasal flaring. Abdomen/GI: Soft, non-tender, with normal bowel sounds. No distension or tympany. No guarding or rebound. No evidence of tenderness throughout. Back: No spinal tenderness. No costovertebral tenderness. Full range of motion. MS/ Extremity: Pulses equal, no cyanosis. Neurovascular intact. Full, normal range of motion. Neuro: Awake and alert, GCS 15, oriented to person, place, time, and situation. Cranial nerves II-XII grossly intact. Motor strength 5/5 in all extremities. Sensory grossly intact. Cerebellar exam normal. Normal gait. Vital Signs: 03:58 BP 187 / 99; Pulse 95; Resp 16; Temp 97.5; Pulse Ox 99% ; Weight 57.33 kg; Height 5 ft. rr5 2 in. (157.48 cm); Pain 0/10; 05:00 BP 185 / 96; Pulse 95; Resp 19; Pulse Ox 98% ; rr5 05:40 BP 175 / 89; Pulse 90; Resp 17; Pulse Ox 98% ; rr5 03:58 Body Mass Index 23.12 (57.33 kg, 157.48 cm) rr5 MDM: 03:50 Patient medically screened. [facility] 03:57 Differential diagnosis: dialysis cath is removed, will get cxr and blood work she is in mt2 normal vs and has no sympotms. 05:13 Data reviewed: vital signs, nurses notes. Counseling: I had a detailed discussion with [facility] the patient and/or guardian regarding: the historical points, exam findings, and any diagnostic results supporting the discharge/admit diagnosis, the presence of at least one elevated blood pressure reading (>120/80) during this emergency department visit, the need for outpatient follow up. Response to treatment: the patient's symptoms have markedly improved after treatment. 12/30 03:57 Order name: Basic Metabolic Panel; Complete Time: 05:13 [facility] 12/30 03:57 Order name: CBC with Diff; Complete Time: 04:45 ma2 12/30 03:57 Order name: Chest Single View XRAY ma2 12/30 03:57 Order name: PT-INR; Complete Time: 04:45 ma2 Administered Medications: No medications were administered Disposition: 12/30/20 05:14 Discharged to Home. Impression: Essential (primary) hypertension, End stage renal disease - WITH CATHETER DISPLACEMENT . - Condition is Stable. - Discharge Instructions: Hypertension, Chronic Kidney Disease, Adult, [id number]. - Medication Reconciliation Form, Thank You Letter, Antibiotic Education, Prescription Opioid Use form. - Follow up: Private Physician; When: Tomorrow; Reason: If symptoms return, Continuance of care. Signatures: Dispatcher [employer] EDMelo Kidd MD MD ma2 Gil Gonzales RN RN rr5 Corrections: (The following items were deleted from the chart) 05:44 05:14 12/30/2020 05:14 Discharged to Home. Impression: Essential (primary) rr5 hypertension; End stage renal disease - WITH CATHETER DISPLACEMENT . Condition is Stable. Forms are Medication Reconciliation Form, Thank You Letter, Antibiotic Education, Prescription Opioid Use. Follow up: Private Physician; When: Tomorrow; Reason: If symptoms return, Continuance of care. ma2
--- NOTE | 2020-12-30 05:14 | ER ---
Nurse's Notes [facility] Name: Liat Velazquez Age: 75 yrs Sex: Female : 1945 Arrival Date: 12/30/2020 Time: 03:49 Bed 20 Private MD: Diagnosis: Essential (primary) hypertension;End stage renal disease-WITH CATHETER DISPLACEMENT Presentation: 12/30 03:58 Chief complaint: Patient's son or daughter states: her dialysis catheter got pulled rr5 out. Coronavirus screen: Client denies travel out of the [place] in the last 14 days. At this time, the client does not indicate any symptoms associated with coronavirus-19. Ebola Screen: Patient negative for fever greater than or equal to 101.5 degrees Fahrenheit, and additional compatible Ebola Virus Disease symptoms Patient denies exposure to infectious person. Patient denies travel to an Ebola-affected area in the 21 days before illness onset. Initial Sepsis Screen: Does the patient meet any 2 criteria? No. Patient's initial sepsis screen is negative. Does the patient have a suspected source of infection? No. Patient's initial sepsis screen is negative. Risk Assessment: Do you want to hurt yourself or someone else? Patient reports no desire to harm self or others. Onset of symptoms was December 30, 2020. 03:58 Method Of Arrival: Wheelchair rr5 03:58 Acuity: REY 3 rr5 Historical: - Allergies: 03:55 No Known Allergies; rr5 - PMHx: 03:55 Dialysis; TThS; Hypertension; kidney problems; multiple myeloma; rr5 - PSHx: 03:55 Knee surgery; dialysis catheter insertion right chest; rr5 - Immunization history:: Adult Immunizations up to date, Client reports receiving the 1st dose of the Covid vaccine, December 23, 2020. - Social history:: Patient/guardian denies using alcohol, street drugs, The patient lives with family, Smoking status: unknown. - Family history:: not pertinent. Screenin:02 Abuse screen: Denies threats or abuse. Denies injuries from another. Nutritional rr5 screening: No deficits noted. Tuberculosis screening: No symptoms or risk factors identified. Fall Risk Gait- Normal/Bed Rest/Wheelchair (0 pts) Total Jeter Fall Scale indicates No Risk (0-24 pts). Assessment: 04:00 General: Appears in no apparent distress. comfortable, Behavior is calm, cooperative, rr5 appropriate for age. Pain: Denies pain. Neuro: Level of Consciousness is awake, alert, obeys commands, Oriented to person, place, time. Cardiovascular: Capillary refill < 3 seconds Patient's skin is warm and dry. dialysis catheter site right upper chest. not bleeding dressing intact . Respiratory: Airway is patent Respiratory effort is even, unlabored, Respiratory pattern is. 04:00 GI: No signs and/or symptoms were reported involving the gastrointestinal system. : rr5 No signs and/or symptoms were reported regarding the genitourinary system. EENT: No signs and/or symptoms were reported regarding the EENT system. Derm: Skin is pink, warm \T\ dry. Musculoskeletal: Capillary refill < 3 seconds. 04:55 Reassessment: Patient appears in no apparent distress at this time. No changes from rr5 previously documented assessment. Patient is alert, oriented x 3, equal unlabored respirations, skin warm/dry/pink. follow up to xray department. 05:44 Reassessment: Patient appears in no apparent distress at this time. Patient is alert, rr5 oriented x 3, equal unlabored respirations, skin warm/dry/pink. discharge instruction given and explained without complaints made. Vital Signs: 03:58 BP 187 / 99; Pulse 95; Resp 16; Temp 97.5; Pulse Ox 99% ; Weight 57.33 kg; Height 5 ft. rr5 2 in. (157.48 cm); Pain 0/10; 05:00 BP 185 / 96; Pulse 95; Resp 19; Pulse Ox 98% ; rr5 05:40 BP 175 / 89; Pulse 90; Resp 17; Pulse Ox 98% ; rr5 03:58 Body Mass Index 23.12 (57.33 kg, 157.48 cm) rr5 ED Course: 03:49 Patient arrived in ED. ag3 03:50 Gil Gonzales RN is Primary Nurse. rr5 03:50 Melo Goodman MD is Attending Physician. ma2 03:55 Arm band placed on. rr5 04:00 Triage completed. rr5 04:02 Patient has correct armband on for positive identification. Bed in low position. Call rr5 light in reach. Pulse ox on. NIBP on. 04:02 No provider procedures requiring assistance completed. rr5 04:20 Inserted saline lock: 22 gauge in right forearm, using aseptic technique. ,using rr5 aseptic technique. inserted by niraj [facility] Blood collected. 04:58 Notified ED physician of a critical lab result(s). creatinine of 7.26. Dr Kumar ponce notified. 05:28 Chest Single View XRAY In Process Unspecified. EDMS 05:42 IV discontinued, intact, bleeding controlled, No redness/swelling at site. Pressure rr5 dressing applied. Administered Medications: No medications were administered Outcome: 05:14 Discharge ordered by . francesca 05:42 Discharged to home via wheelchair, with family. rr5 05:42 Condition: stable 05:42 Discharge instructions given to patient, family, Instructed on discharge instructions, follow up and referral plans. Demonstrated understanding of instructions, follow-up care. 05:44 Patient left the ED. rr5 Signatures: Dispatcher [employer] EDDestiny Hidalgo RN RN Melo Martinez MD MD wv2 Magui Harding [facility] Gil Gonzales, RN RN rr5 Corrections: (The following items were deleted from the chart) 04:00 03:58 Acuity: REY 4 rr5 rr5 05:44 05:42 Patient did not have IV access during this emergency room visit. rr5 rr5 05:44 04:20 Initial lab(s) drawn, by ED staff, sent to lab. rr5 rr5
[2020-12-30 05:51] VITALS: TEMP 97.5
[2020-12-30 05:53] VITALS: O2SAT 98
[2020-12-30 05:54] VITALS: BP 175/89
--- NOTE | 2020-12-30 09:05 | RAD REPORT ---
EXAM DESCRIPTION: RAD - Chest Single View - 12/30/2020 5:28 am CLINICAL HISTORY: dialysis cath was removed Chest pain. COMPARISON: Chest Single View dated 06/27/2020; Chest Single View dated 05/23/2020; Chest Single View dated 05/14/2020; Chest Single View dated 05/13/2020 FINDINGS: Portable technique limits examination quality. Mild pulmonary edema is seen. The heart is moderately enlarged in size. No displaced fractures. IMPRESSION: Mild CHF versus volume overload pattern.
== END 2020-12-30 05:44 | disposition home or self-care (01) ==
LOC: ER 03:46
DX: T82.42XA Displacement of vascular dialysis catheter, initial encounter (principal); I12.0 Hypertensive chronic kidney disease with stage 5 chronic kidney disease or end stage renal disease; N18.6 End stage renal disease; Z99.2 Dependence on renal dialysis; C90.00 Multiple myeloma not having achieved remission
CPT/HCPCS: 36415; 71045; 80048; 85025; 85610; 99284

== ENCOUNTER 2024-02-05 10:34 | Emergency (ER) | payer OTHER ==
--- NOTE | 2024-02-05 12:42 | EDPHYS ---
Physician Documentation [facility] Name: Liat Velazquez Age: 78 yrs Sex: Female : 1945 Arrival Date: 02/05/2024 Time: 10:34 Bed 6 Private MD: ED Physician Celeste Jarvis HPI: 02/04 10:47 This 78 yrs old Black Female presents to ER via Unassigned with complaints of AV sd2 fistula bleeding. 10:47 78-year-old female presents via EMS with chief complaint of bleeding from her AV sd2 fistula site. She was brought from dialysis where she normally goes every Saturday, Saturday and Saturday. She had completed her dialysis treatment and they were removing her from the machine when they noted the bleeding. They were not able to stop the bleeding initially with clamps and a tourniquet was placed at 10:11 AM. This did stop the bleeding. The patient currently has no other symptoms and does not report any significant trauma or other symptoms or that this has happened previously. Her AV fistula surgery was performed in [place].. Historical: - Allergies: 10:47 No Known Allergies; ko1 - PMHx: 10:47 Dialysis; TThS; Hypertension; kidney problems; multiple myeloma; ko1 - Immunization history:: Adult Immunizations up to date. - Infectious Disease History:: Denies. - Social history:: Smoking status: Patient/guardian denies using tobacco, but has a distant history of tobacco abuse. ROS: 10:47 Constitutional: Negative for fever, chills, and weight loss, Eyes: Negative for injury, sd2 pain, redness, and discharge, Cardiovascular: Negative for chest pain, palpitations, and edema, Respiratory: Negative for shortness of breath, cough, wheezing. Abdomen/GI: Negative for abdominal pain, nausea, vomiting, diarrhea. MS/Extremity: Negative for injury and deformity, Skin: Negative for injury, rash, and discoloration, Neuro: Negative for headache, positive for numbness and tingling below tourniquet Exam: 10:47 Constitutional: This is a well developed, well nourished patient who is awake, alert, sd2 and in no acute distress. Head/Face: Normocephalic, atraumatic. Eyes: EOMI, normal conjunctiva bilaterally Chest/axilla: Normal chest wall appearance and motion. Nontender with no deformity. Cardiovascular: Regular rate and rhythm with a normal S1 and S2. No gallops, murmurs, or rubs. 2+ distal pulses. Respiratory: Lungs have equal breath sounds bilaterally, clear to auscultation and percussion. No rales, rhonchi or wheezes noted. No increased work of breathing, no retractions or nasal flaring. Abdomen/GI: Soft, non-tender, with normal bowel sounds. No guarding or rebound. No evidence of tenderness throughout. Skin: Warm, dry with normal turgor. Normal color with no rashes, no lesions, and no evidence of cellulitis. AV fistula site noted to L upper arm with no visible bleeding. Tourniquet in place as well as clamp. Both removed with no further bleeding noted. MS/ Extremity: Pulses equal, no cyanosis. Neurovascular intact. Full, normal range of motion. Neuro: Awake and alert, GCS 15, oriented to person, place, time, and situation. Cranial nerves II-XII grossly intact. Motor strength 5/5 in all extremities. Sensory grossly intact except to LUE below tourniquet. Sensation improved and returned following tourniquet removal with palpable thrill noted to AV fistula. Psych: Awake, alert, with orientation to person, place and time. Behavior, mood, and affect are within normal limits. Vital Signs: 10:30 BP 170 / 97; Pulse 97; Resp 16; Temp 98; Pulse Ox 97% on R/A; ko1 11:04 BP 127 / 84; Pulse 88; Resp 15; Pulse Ox 98% ; ko1 11:55 BP 141 / 77; Pulse 84; Resp 16; Pulse Ox 98% ; ko1 12:48 BP 137 / 81; Pulse 80; Resp 16; Pulse Ox 99% ; ko1 MDM: 10:36 Patient medically screened. sd2 10:47 Differential Diagnosis traumatic bleeding, laceration, arterial bleed, venous bleed, sd2 doubt anemia among others. Data reviewed: vital signs, nurses notes, EMS record. Test considered but Not performed: Labs: No CBC needed with insignificant amount of blood loss reported, stable VS and patient asymptomatic. Care significantly affected by the following chronic conditions: Hypertension, Chronic Kidney Disease. 11:18 ED course: Re-evaluated patient. No signs of active bleeding.. sd2 12:41 ED course: No bleeding, Pt with normal sensation and pulses and palpable thrill to AV sd2 fistula. Advised to continue to monitor at home and follow up outpatient. Pt and daughter comfortable with plan for discharge and outpatient follow up and verbalize understanding of discharge plan and strict return precautions.. Administered Medications: No medications were administered Disposition Summary: 02/05/24 12:42 Discharge Ordered Problem: new sd2 Symptoms: are resolved sd2 Condition: Stable sd2 Diagnosis - Arteriovenous fistula, acquired sd2 - Bleeding from hemodialysis fistula site sd2 Followup: sd2 - With: Private Physician - When: 2 - 3 days - Reason: Recheck today's complaints, Re-evaluation by your physician Discharge Instructions: - Discharge Summary Sheet sd2 - AV Fistula Placement, Care After sd2 Forms: - Medication Reconciliation Form sd2 - Antibiotic Education sd2 - Prescription Opioid Use sd2 - Patient Portal Instructions sd2 - Leadership Thank You Letter sd2 Signatures: Celeste Jarvis MD MD sd2 Deidra Jung RN RN ko1
--- NOTE | 2024-02-05 12:42 | ER ---
Nurse's Notes [facility] Name: Liat Velazquez Age: 78 yrs Sex: Female : 1945 Arrival Date: 02/05/2024 Time: 10:34 Bed 6 Private MD: Diagnosis: Arteriovenous fistula, acquired;Bleeding from hemodialysis fistula site Presentation: 02/04 10:30 Chief complaint: EMS states: called to dialysis center for access that would not stop ko1 bleeding. Coronavirus screen: At this time, the client does not indicate any symptoms associated with coronavirus-19. Ebola Screen: No symptoms or risks identified at this time. Initial Sepsis Screen: Does the patient meet any 2 criteria? No. Patient's initial sepsis screen is negative. Does the patient have a suspected source of infection? No. Patient's initial sepsis screen is negative. Risk Assessment: Do you want to hurt yourself or someone else? Patient reports no desire to harm self or others. Onset of symptoms was February 05, 2024. Care prior to arrival: tourniquet placed to left upper arm at 1011. 10:30 Method Of Arrival: EMS: [facility] ko1 10:30 Acuity: REY 3 ko1 Triage Assessment: 10:47 General: Appears in no apparent distress. uncomfortable, Behavior is calm, cooperative, ko1 appropriate for age. Pain: Complains of pain in left arm. 10:47 EENT: No deficits noted. Neuro: No deficits noted. Cardiovascular: Dialysis shunt: in ko1 the left bicep, with palpable thrill, with auscultated bruit, with no erythema, with no edema, after tourniquet removed, radial pulse returned, thrill returned, no active bleeding at this time. Respiratory: No deficits noted. GI: No deficits noted. : No deficits noted. Derm: No deficits noted. Musculoskeletal: No deficits noted. Historical: - Allergies: 10:47 No Known Allergies; ko1 - PMHx: 10:47 Dialysis; TThS; Hypertension; kidney problems; multiple myeloma; ko1 - Immunization history:: Adult Immunizations up to date. - Infectious Disease History:: Denies. - Social history:: Smoking status: Patient/guardian denies using tobacco, but has a distant history of tobacco abuse. Screenin:[facility] ED Fall Risk Assessment (Adult) History of falling in the last 3 months, ko1 including since admission No falls in past 3 months (0 pts) Confusion or Disorientation No (0 pts) Intoxicated or Sedated No (0 pts) Impaired Gait No (0 pts) Mobility Assist Device Used No (0 pt) Altered Elimination No (0 pt) Score/Fall Risk Level 0 - 2 = Low Risk Oriented to surroundings, Maintained a safe environment, Educated pt \T\ family on fall prevention, incl call for assistance when getting out of bed, Assessed \T\ reinforced patient's understanding of fall precautions, Provided non-skid footwear, Hourly rounding (assess needs \T\ fall precautionary measures) done, Used ambulatory aids as needed (educated on \T\ assisted with), Used gait belt as appropriate. Abuse screen: Denies threats or abuse. Denies injuries from another. Nutritional screening: No deficits noted. Tuberculosis screening: No symptoms or risk factors identified. Assessment: 10:40 Reassessment: Patient arrived via EMS with clamps on hemodialysis access sites and a ko1 tourniquet about site that was placed by EMS at 1011, informed physician of placement time, Dr Jarvis at bedside to slowly remove tourniquet and assess site. No bleeding noted after removal, informed patient to call if she felt any bleeding from site, instructed patient not to do anything with that arm for a while. Patient verbalized understanding and will be monitored closely. 10:51 Reassessment: see triage note. ko1 11:05 Reassessment: no bleeding noted, patient more comfortable. ko1 11:54 Reassessment: Patient appears in no apparent distress at this time. No changes from ko1 previously documented assessment. Patient and/or family updated on plan of care and expected duration. Pain level reassessed. Patient is alert, oriented x 3, equal unlabored respirations, skin warm/dry/pink. Vital Signs: 10:30 BP 170 / 97; Pulse 97; Resp 16; Temp 98; Pulse Ox 97% on R/A; ko1 11:04 BP 127 / 84; Pulse 88; Resp 15; Pulse Ox 98% ; ko1 11:55 BP 141 / 77; Pulse 84; Resp 16; Pulse Ox 98% ; ko1 12:48 BP 137 / 81; Pulse 80; Resp 16; Pulse Ox 99% ; ko1 ED Course: 10:30 Arm band placed on right wrist. Patient placed in an exam room, on a stretcher, on ko1 manager group, on pulse oximetry, Patient notified of wait time. 10:35 Patient arrived in ED. iw 10:36 Celeste Jarvis MD is Attending Physician. sd2 10:37 Deidra Jung, RN is Primary Nurse. ko1 10:40 Removal of tourniquet and clamps from left arm. ko1 10:47 Triage completed. ko1 10:51 Patient has correct armband on for positive identification. Bed in low position. Call ko1 light in reach. Side rails up X2. Pulse ox on. NIBP on. Door closed. Noise minimized. Lights dimmed. Warm blanket given. 11:54 PO fluids given. crackers and peanut butter provided. ko1 12:48 Provided Education on: NA. ko1 12:48 No provider procedures requiring assistance completed. Patient did not have IV access ko1 during this emergency room visit. Administered Medications: No medications were administered Medication: 10:51 VIS not applicable for this client. ko1 Outcome: 12:42 Discharge ordered by . sd2 12:48 Discharged to home via wheelchair, with family, ko1 12:48 Condition: stable 12:48 Discharge instructions given to patient, Instructed on discharge instructions, follow up and referral plans. Demonstrated understanding of instructions, follow-up care, 13:00 Patient left the ED. ko1 Signatures: Akosua Spence, RN RN Celeste Jarvis MD MD sd2 Oliver, Kathy, RN RN ko1
[2024-02-05 13:29] VITALS: BP 137/81; O2SAT 99
== END 2024-02-05 13:00 | disposition home or self-care (01) ==
LOC: ER 10:34
DX: T82.838A Hemorrhage due to vascular prosthetic devices, implants and grafts, initial encounter (principal); I77.0 Arteriovenous fistula, acquired
CPT/HCPCS: 99283

== ENCOUNTER 2025-05-27 06:28 | Day surgery (SDC) | payer OTHER ==
[2025-05-27] MEDS: Ringers Lactate 1,000 ML IV ONE (07:05)
[2025-05-27] MEDS ORDERED: NS 0.9% VIAL 20 ML ONE (07:13)
[2025-05-27] MEDS: CEFAZOLIN SODIUM 2 GM/VIAL ONE (07:30)
[2025-05-27] MEDS: LIDOCAINE 1% MPF 30 ML VIAL ONE (07:55)
[2025-05-27] MEDS: HEPARIN 5000 UNIT/ML 1 ML VIAL ONE (08:08)
--- NOTE | 2025-05-27 08:37 | P.OP ---
Date of Service: 05/27/25 Preop diagnosis: Multiple myeloma Postop diagnosis: Same Procedure performed: Placement of right internal jugular vascular access device with utilization of ultrasound and fluoroscopy Surgeon: Sharad Cheema MD Boil Off Worker: None Estimated blood loss: Minimal Specimen: None Findings: Normal anatomy Anesthesia: General Complications: None Drains: None Fluids and blood products: Nonapplicable Disposition: Recovery room Operative note: Patient brought to the OR and placed in supine position. General anesthesia began. Patient prepped and draped in the usual sterile fashion. Ultrasound device used to isolate the right internal jugular vein. 18-gauge needle used to access the right internal jugular vein and guidewire pas sed. Fluoroscopy used to confirm position. Lidocaine 1% infiltrated locally. 15 blade used to make a 3 cm incision of the right anterior chest. Pocket created. Bleeding controlled cautery. Tunneling device used to tunnel the catheter between the 2 wounds. Salinger technique used and the tip of the catheter placed in the SVC right atrial junction. Fluoroscopy utilized to confirm position. Catheter cut to appropriate size and attached to the Port-A-Cath device. Port-A-Cath device attached to subcutaneous tissue with 3-0 Vicryl. 3-0 chromic used to reapproximate subcutaneous tissue and close skin. Port-A-Cath device flushed with heparin and packed with heparin. Good blood flow obtained. Sterile dressing applied. Patient awakened and taken to recovery room in good general condition. Chest x-ray has been ordered. CC: Dr. Lozada's office
[2025-05-27] MEDS ORDERED: HYDROCODONE/APAP 5/325 MG TAB PO PRN (08:39)
--- NOTE | 2025-05-27 08:49 | RAD REPORT ---
Exam: Fluoroscopy less than one hour Clinical history portacatheter placement FINDINGS: Fluoroscopy time 1 minute. 12 fluoroscopic spot images obtained. Central venous catheter placed into the SVC
[2025-05-27] MEDS ORDERED: ONDANSETRON 4 MG/2 ML VIAL ONE (09:17)
[2025-05-27] MEDS ORDERED: LIDOCAINE 2% MPF 5 ML VIAL ONE (09:17)
[2025-05-27] MEDS ORDERED: MIDAZOLAM HCL 2 MG/2 ML INJ ONE (09:17)
--- NOTE | 2025-05-27 09:37 | RAD REPORT ---
Procedure: Chest Single View HISTORY: Central venous catheter insertion FINDINGS: Central venous catheter has been inserted into the SVC. No pneumothorax
[2025-05-27 10:55] VITALS: BP 139/45; TEMP 97.1; O2SAT 98
== END 2025-05-27 10:50 | disposition home or self-care (01) ==
LOC: OR 06:28
PROVIDERS: ATTEND Surgery
PROC: 0JH60WZ Insertion of Totally Implantable Vascular Access Device into Chest Subcutaneous Tissue and Fascia, Open Approach (ICD-10-PCS; principal; 2025-05-27 07:30)
DX: C90.00 Multiple myeloma not having achieved remission (principal)
CPT/HCPCS: 71045; 36561; J1644 ×2; A4216; J2003 ×2; J2250; J2405; J7120; C1788; 76000